=== PATIENT | female | born 1985 | race Caucasian/White ===

== ENCOUNTER 2017-07-27 21:34 | Emergency (ER) | payer OTHER ==
[~2017-07-27] VITALS: Ht 157.5 cm; Wt 104.1 kg
[~2017-07-27 21:34] MED LIST: ZNTT/150 PO
[2017-07-27 21:36] VITALS: TEMP 36.8; Ht 157.5 cm; Wt 104.1 kg
[2017-07-27 22:07] LABS: BASO % 0.1 %; BASO ABS # 0.01 K/uL (0-0.2); EOS % 2.6 %; EOS ABS # 0.32 K/uL (0-0.5); HEMATOCRIT 40.5 % (37-47); HEMOGLOBIN 13.5 g/dL (12.0-16.0); IG# 0.05 K/uL (0.00-0.02); LYMPH % 28.8 %; LYMPH ABS # 3.49 K/uL (1.2-3.4); MEAN CELL VOLUME 88.4 fL (80-100); MEAN CORPUSCULAR HEMOGLOBIN 29.5 pg (25-34); MEAN CORPUSCULAR HGB CONC 33.3 g/dl (32-36); MEAN PLATELET VOLUME 9.7 fL (7.4-10.4); MONO % 4.5 %; MONO ABS # 0.54 K/uL (0.11-0.59); NEUT % 63.6 %; NEUT ABS # 7.69 K/uL (1.4-6.5); PLATELET COUNT 311 K/uL (130-400); RED CELL DISTRIBUTION WIDTH CV 13.7 % (11.5-14.5)
[2017-07-27] MEDS ORDERED: MULT-506 PO (22:10)
[2017-07-27] MEDS ORDERED: PRVHFAIN INH (22:10)
[2017-07-27 22:23] LABS: ALBUMIN 3.6 gm/dl (3.4-5.0); ALT/SGPT 27 U/L (12-78); BLOOD UREA NITROGEN 14 mg/dl (7-18); CALCIUM 8.9 mg/dl (8.5-10.1); CARBON DIOXIDE 24 mmol/L (21-32); CREATININE 0.82 mg/dl (0.60-1.20); GLUCOSE 110 mg/dl (70-99); LIPASE 140 U/L (73-393); POTASSIUM 3.6 mmol/L (3.5-5.1); SODIUM 136 mmol/L (136-145)
[2017-07-27 22:29] LABS: INFLUENZA B ANTIGEN Neg for Influ B (NEG)
[2017-07-27 22:32] LABS: ALKALINE PHOSPHATASE 130 U/L (45-117); AST/SGOT 12 U/L (15-37); TOTAL PROTEIN 7.9 gm/dl (6.4-8.2)
--- NOTE | 2017-07-27 22:44 | DIAGNOSTIC IMAGING REPORT ---
CHEST ONE VIEW PORTABLE CLINICAL HISTORY: 31 years-old Female presenting with chest pain. TECHNIQUE: Portable upright AP view of the chest was obtained. COMPARISON: 12/21/2015. FINDINGS: Cardiomediastinal silhouette normal. Mild bronchial wall thickening may be present. Lungs and pleural spaces otherwise clear. Osseous structures normal. Upper abdomen normal. IMPRESSION: 1. Mild bronchial wall thickening could suggest bronchitis. No focal infiltrate to suggest pneumonia. Electronically signed by: Jethro Stevens M.D. 07/27/2017 10:43 PM Dictated Date/Time: 07/27/2017 10:42 PM
[2017-07-27] MEDS ORDERED: FAMOTIDINE 20MG/5ML IV PUSH IV STA (22:45)
[2017-07-27] MEDS ORDERED: KETOROLAC TROMETHAMINE 30 MG/ML VIAL IV STA (22:45)
--- NOTE | 2017-07-27 23:44 | EMERGENCY ROOM VISIT NOTE ---
History Report prepared by [place]: Serena Kan Under the Supervision of: Dr. Ivy Prescott D.O. First contact with patient: 21:40 Chief Complaint: CARDIAC ASSESSMENT Stated Complaint: PAIN IN ARMS,CHEST,AND BACK Nursing Triage Summary: Pt c/o midsternal chest pain that radiates to her back and down bilateral arms. Started yesterday morning. History of Present Illness The patient is a 31 year old female who presents to the Emergency Room with complaints of waxing and waning chest pain starting 2 days ago. The patient's PCP recommended that she come to the ED. She has a history of ankylosing spondylitis and discs in her neck. Her PCP thinks this pain is most likely due to her spine, but recommended she come in to the ED to rule out anything acute. The chest pain goes down her arms and into her back. She describes the pain as a dull ache with occasional stabbing pains. She has tried Tylenol and ibuprofen to some relief. She has had similar pain in the past, but it usually does not last this long. The pain in her arms is worse than her back pain. She is nauseous. She denies any numbness, tingling, dizziness, lightheadedness, SOB, fever, chills, black stools, blood stools, diarrhea, or urinary symptoms. She has a history of GERD. She denies any chance of . She is not on control. Source of History: patient Onset: 2 days ago Position: chest Quality: ache, stabbing, dull Timing: waxes/wanes Modifying Factors (Relieving): tylenol, ibuprofen Associated Symptoms: + nausea, + back pain, No fevers, No chills, No SOB, No melena, No hematochezia, No diarrhea, No urinary symptoms, No numbness Note: Pt reports arm pain. Review of Systems See HPI for pertinent positives & negatives. A total of 10 systems reviewed and were otherwise negative. Past Medical & Surgical Medical Problems: (1) Acute pericarditis (2) Anxiety disorder, unspecified (3) Preeclampsia Family History Cancer Diabetes mellitus Gallbladder disease Heart attack GRANDFATHER, Onset:40's - 50 Heart disease Hypertension Kidney disease Kidney stones Seizures Social History Smoking Status: Never Smoker Alcohol Use: none Drug Use: none Marital Status: Housing Status: lives with family Occupation Status: unemployed Current/Historical Medications Scheduled Multivitamin (Multivitamin), 1 TAB PO DAILY Scheduled PRN Albuterol (Ventolin Hfa), 2 PUFFS INH UD PRN for SOB/Wheezing Allergies Coded Allergies: Doxycycline (Verified Allergy, Intermediate, Rash, 07/27/17) Amoxicillin (Verified Allergy, Unknown, ANAPHYLAXIS, 10/31/15) Clavulanic Acid (Verified Allergy, Unknown, ANAPHYLAXIS, 10/31/15) Metronidazole (Verified Allergy, Unknown, rash, 10/31/15) Physical Exam Vital Signs Date Time Temp Pulse Resp B/P (MAP) Pulse Ox O2 Delivery O2 Flow Rate FiO2 07/28/17 00:08 83 18 124/76 97 07/27/17 22:54 96 18 106/69 98 Room Air 07/27/17 21:52 89 07/27/17 21:36 36.8 104 18 145/85 97 Room Air Physical Exam GENERAL: alert, well appearing, well nourished, no distress, non-toxic, obese EYE EXAM: normal conjunctiva, PERRL and EOM's grossly intact OROPHARYNX: no exudate, no erythema, lips, buccal mucosa, and tongue normal and mucous membranes are moist NECK: supple, no nuchal rigidity, no adenopathy, non-tender LUNGS: Clear to auscultation. No wheezes, rhonchi, rales. Normal chest wall mechanics HEART: no murmurs, S1 normal and S2 normal, no reproducible chest pain ABDOMEN: abdomen soft, non-tender, normo-active bowel sounds, no masses, no rebound or guarding. BACK: Back is symmetrical on inspection and there is no deformity, no midline tenderness, no CVA tenderness. SKIN: no rashes and no bruising UPPER EXTREMITIES: upper extremities are grossly normal. Full range of motion, equal pulses bilaterally LOWER EXTREMITIES: No pitting edema. Full range of motion, equal pulses bilaterally NEURO EXAM: Normal sensorium, cranial nerves II-XII grossly intact, normal speech, no gross weakness of arms, no gross weakness of legs. Medical Decision & Procedures ER Provider Diagnostic Interpretation: Xray results have been interpreted by the radiologist and by me. CHEST ONE VIEW PORTABLE CLINICAL HISTORY: 31 years-old Female presenting with chest pain. TECHNIQUE: Portable upright AP view of the chest was obtained. COMPARISON: 12/21/2015. FINDINGS: Cardiomediastinal silhouette normal. Mild bronchial wall thickening may be present. Lungs and pleural spaces otherwise clear. Osseous structures normal. Upper abdomen normal. IMPRESSION: 1. Mild bronchial wall thickening could suggest bronchitis. No focal infiltrate to suggest pneumonia. Electronically signed by: Jethro Stevens M.D. 07/27/2017 10:43 PM Dictated Date/Time: 07/27/2017 10:42 PM Laboratory Results 07/27/17 21:55 Red Blood Count 4.58, Mean Corpuscular Volume 88.4, Mean Corpuscular Hemoglobin 29.5, Mean Corpuscular Hemoglobin Concent 33.3, Mean Platelet Volume 9.7, Neutrophils (%) (Auto) 63.6, Lymphocytes (%) (Auto) 28.8, Monocytes (%) (Auto) 4.5, Eosinophils (%) (Auto) 2.6, Basophils (%) (Auto) 0.1, Neutrophils # (Auto) 7.69, Lymphocytes # (Auto) 3.49, Monocytes # (Auto) 0.54, Eosinophils # (Auto) 0.32, Basophils # (Auto) 0.01 07/27/17 21:55 Test 07/27/17 21:55 07/27/17 22:05 White Blood Count 12.10 K/uL (4.8-10.8) Red Blood Count 4.58 M/uL (4.2-5.4) Hemoglobin 13.5 g/dL (12.0-16.0) Hematocrit 40.5 % (37-47) Mean Corpuscular Volume 88.4 fL (80-100) Mean Corpuscular Hemoglobin 29.5 pg (25-34) Mean Corpuscular Hemoglobin Concent 33.3 g/dl (32-36) Platelet Count 311 K/uL (130-400) Mean Platelet Volume 9.7 fL (7.4-10.4) Neutrophils (%) (Auto) 63.6 % Lymphocytes (%) (Auto) 28.8 % Monocytes (%) (Auto) 4.5 % Eosinophils (%) (Auto) 2.6 % Basophils (%) (Auto) 0.1 % Neutrophils # (Auto) 7.69 K/uL (1.4-6.5) Lymphocytes # (Auto) 3.49 K/uL (1.2-3.4) Monocytes # (Auto) 0.54 K/uL (0.11-0.59) Eosinophils # (Auto) 0.32 K/uL (0-0.5) Basophils # (Auto) 0.01 K/uL (0-0.2) RDW Standard Deviation 44.0 fL (36.4-46.3) RDW Coefficient of Variation 13.7 % (11.5-14.5) Immature Granulocyte % (Auto) 0.4 % Immature Granulocyte # (Auto) 0.05 K/uL (0.00-0.02) D-Dimer 280 ug/L FEU (0-500) Anion Gap 9.0 mmol/L (3-11) Est Creatinine Clear Calc Drug Dose 114.6 ml/min Estimated GFR () 112.1 Estimated GFR (Non- 96.7 BUN/Creatinine Ratio 16.5 (10-20) Calcium Level 8.9 mg/dl (8.5-10.1) Magnesium Level 2.0 mg/dl (1.8-2.4) Total Bilirubin 0.2 mg/dl (0.2-1) Aspartate Amino Transf (AST/SGOT) 12 U/L (15-37) Alanine Aminotransferase (ALT/SGPT) 27 U/L (12-78) Alkaline Phosphatase 130 U/L (45-117) Troponin I < 0.015 ng/ml (0-0.045) Total Protein 7.9 gm/dl (6.4-8.2) Albumin 3.6 gm/dl (3.4-5.0) Globulin 4.3 gm/dl (2.5-4.0) Albumin/Globulin Ratio 0.8 (0.9-2) Lipase 140 U/L (73-393) Human Chorionic Gonadotropin, Qual NEG (NEG) Lyme Disease IgG Antibody NEG (NEG) Lyme Disease IgM Antibody NEG (NEG) Influenza Type A Antigen Neg for Influ A (NEG) Influenza Type B Antigen Neg for Influ B (NEG) Laboratory results per my review. Medications Administered Medications (Trade) Dose Ordered Sig/Kristofer Route Start Time Stop Time Status Last Admin Dose Admin Ketorolac Tromethamine (Toradol Inj) 30 mg NOW STAT IV 07/27/17 22:45 07/27/17 22:47 DC 07/27/17 22:52 30 MG ECG Indication: chest pain Rate (beats per minute): 87 Rhythm: sinus rhythm Findings: no acute ischemic change, no ectopy, other (normal axis, normal intervals) Change: EKG: Patient's electrocardiogram per my interpretation. ED Course 2141: The patient was evaluated in room B11B. A complete history and physical exam was performed. 2244: Toradol Inj 30 mg IV. 2336: Upon reevaluation, the patient is feeling better. She declines chest CT. I discussed the findings and the treatment plan with the patient. She verbalizes agreement and understanding. She was discharged home. Medical Decision Differential diagnoses includes but is not limited to acute coronary syndrome, myocardial infarction, pericarditis, pulmonary embolus, aortic dissection, pneumonia, pneumothorax, musculoskeletal, shingles, esophageal. Upon review of EMR, patient with prior cardiac catheterization within last 5 years which was negative for any obstructive coronary artery disease. Patient low risk at baseline given lack of other risk factors. D-dimer negative and no hypoxia or increased work of breathing otherwise suggest occult PE. Patient with no findings or history to suggest lower extremity DVT. No other evidence of occult infection. Labs and imaging otherwise reassuring. Patient offered additional pain medication here and she declined. Patient already following with rheumatology regarding her ankylosing spondylitis. Discussed with her symptoms to watch and return for, continued follow-up as already scheduled with dermatology as well as her GI doctors given her recurrent episodes of GERD, she verbalized understanding was agreeable with plan. Medication Reconcilliation Current Medication List: was personally reviewed by me Blood Pressure Screening Patient's blood pressure: Normal blood pressure Blood pressure disposition: Did not require urgent referral Impression Primary Impression: Chest pain Additional Impressions: Back pain GERD (gastroesophageal reflux disease) Scribe Attestation The scribe's documentation has been prepared under my direction and personally reviewed by me in its entirety. I confirm that the note above accurately reflects all work, treatment, procedures, and medical decision making performed by me. Departure Information Dispostion Home / Self-Care Referrals No Doctor, Assigned (PCP) Patient Instructions [facility] Additional Instructions Please call follow-up with your family doctor regarding your recent increased pain. 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 Please take the stomach medication as it was prescribed. Please avoid acidic food and drink as previously discussed. If you develop any worsening pain, develop vomiting, black or bloody stools, trouble breathing, fevers, numbness or tingling in her arms, swelling in extremity, you have any other new concerns , please return the emergency room. Problem Qualifiers Primary Impression: Chest pain Chest pain type: unspecified Qualified Codes: R07.9 - Chest pain, unspecified Additional Impressions: Back pain Back pain location: thoracic back pain Chronicity: chronic Back pain laterality: midline Qualified Codes: M54.6 - Pain in thoracic spine; G89.29 - Other chronic pain GERD (gastroesophageal reflux disease) Esophagitis presence: esophagitis presence not specified Qualified Codes: K21.9 - Gastro-esophageal reflux disease without esophagitis
[2017-07-28 00:08] VITALS: BP 124/76; PULSE 83; O2SAT 97
== END 2017-07-28 00:02 | disposition home or self-care (01) ==
LOC: C.EDB 21:36
DX: R07.9 Chest pain, unspecified (principal); M54.6 Pain in thoracic spine; G89.29 Other chronic pain; K21.9 Gastro-esophageal reflux disease without esophagitis; F41.9 Anxiety disorder, unspecified; Z83.3 Family history of diabetes mellitus; Z82.49 Family history of ischemic heart disease and other diseases of the circulatory system; Z84.1 Family history of disorders of kidney and ureter; Z82.0 Family history of epilepsy and other diseases of the nervous system; Z88.0 Allergy status to penicillin; Z88.1 Allergy status to other antibiotic agents

== ENCOUNTER 2017-09-10 15:57 | Emergency (ER) | payer OTHER ==
[~2017-09-10] VITALS: Ht 157.5 cm; Wt 96.7 kg
[~2017-09-10 15:57] MED LIST changes: +MULT-506 PO; +PRVHFAIN INH; -ZNTT/150 PO
[2017-09-10 16:05] VITALS: TEMP 36.8; Ht 157.5 cm; Wt 96.7 kg
[2017-09-10] MEDS ORDERED: GI COCKTAIL PO STA (16:40)
[2017-09-10] MEDS ORDERED: FAMOTIDINE 20MG/5ML IV PUSH IV STA (16:40)
[2017-09-10] MEDS ORDERED: ALUMINUM/MAGNESIUM SUSP 30 ML UDC ONE (16:46)
[2017-09-10] MEDS ORDERED: LIDOCAINE HCL 2% VISC SOLN 20 ML UDC ONE (16:46)
[2017-09-10 16:57] VITALS: O2SAT 95
--- NOTE | 2017-09-10 17:00 | EMERGENCY ROOM VISIT NOTE ---
ED Visit Note First contact with patient: 16:28 CHIEF COMPLAINT: Chest pain HISTORY OF PRESENTING ILLNESS: This is a 31-year-old female with past medical history significant for ankylosing spondylitis, asthma, anxiety, and pericarditis, who presents to the emergency department with complaint of chest pain for the past 3 days. Patient describes the pain as pressure and tightness , in the middle of her chest, radiates up her neck and throat, constant, 4/10. She states that the pain feels worse when she lies flat for prolonged periods of time, and that her chest feels tight when she tries to take a deep breath. She denies any shortness of breath. She states nothing has made the pain better. She has tried ibuprofen, Mylanta, and [place], thinking that it was GERD, however this has not relieved her symptoms. She does have a history of pericarditis a few years ago, she states this feels different. She states that she just got over bronchitis a few days ago. She denies any fevers or chills, headaches, neck pain, dizziness or syncope, abdominal pain, back pain, nausea or vomiting, diarrhea, bloody or black stools, urinary symptoms, or rash. She denies any recent long travel or immobilization, leg pain or swelling , oral contraceptive use, or history of blood clots. REVIEW OF SYSTEMS: A complete 10 point review of systems was reviewed with the patient with pertinent positives and negatives as per history of present illness. All else were negative. PAST MEDICAL HISTORY: Reviewed in chart. FAMILY HISTORY: Denies any history of cardiac disease or at a young age. SOCIAL HISTORY: Lives at home with family. Former smoker, quit 4 years ago. Denies recreational drug use. ALLERGIES: Reviewed in chart. PHYSICAL EXAM: CONSTITUTIONAL: Pleasant and cooperative. No acute distress. Well hydrated, well appearing and well nourished. HEENT: Normocephalic, atraumatic. Pupils equal, round and reactive to light, EOMI. TMs normal. Pharynx normal. Moist mucus membranes. NECK: Supple, full active range of motion without discomfort. RESPIRATORY: Clear to auscultation bilaterally with no wheezing, crackles, rhonchi or stridor. Equal expansion bilaterally. CARDIOVASCULAR: Regular rate and rhythm with no murmurs, rubs or gallops. Normal peripheral perfusion. No edema. GASTROINTESTINAL: Soft, nontender, nondistended. No palpable masses or HSM. Bowel sounds present in all quadrants. MUSCULOSKELETAL: Full range of motion of all joints without discomfort. INTEGUMENTARY: No rash or other significant dermatologic conditions noted. NEUROLOGIC: Alert and oriented X 4 with normal affect. Normal strength and sensation in all four extremities. No focal neurologic deficits noted. Normal speech. Normal gait observed. ED COURSE AND MEDICAL DECISION MAKING: CC: Patient presenting with complaint of chest pain/pressure DIFFERENTIAL DIAGNOSIS: Includes, but not limited to acute coronary syndrome, GERD, pulmonary embolism, pneumothorax, pericarditis, myocarditis, anxiety, musculoskeletal pain, costochondritis, pneumonia, among others. INTERPRETATION OF LABS: No leukocytosis, no anemia, no significant electrolyte abnormalities, normal renal function, normal liver enzymes and lipase. Troponin is negative. D-dimer is negative. Urine negative. IMAGING: CHEST 2 VIEWS ROUTINE CLINICAL HISTORY: CHEST PAIN dyspnea COMPARISON STUDY: 07/27/2017 FINDINGS: The bones soft tissues and hemidiaphragms are normal. The cardiomediastinal silhouette is normal. The lungs are clear. The pulmonary vasculature is normal. IMPRESSION: Negative chest. EKG: Shows normal sinus rhythm with sinus arrhythmia, with a rate of 83 bpm, no acute ischemic changes, no significant changes when compared to previous EKG from 07/27/2017 by my interpretation. MEDICATION RECONCILIATION: I attest that I have personally reviewed the patient 's current medication list. INITIAL VITAL SIGNS REVIEW: I reviewed the patient's initial vital signs and interpret them as follows: T: Afebrile; BP: Normotensive; HR: Within normal limits; RR: Within normal limits; Pulse Ox: Within normal limits on room air. Blood pressure screening: The patient was found to have normal blood pressure on screening and does not require follow-up for repeat blood pressure check. SUMMARY: Patient was evaluated at bedside, history and physical exam performed. Patient is alert and oriented, no acute distress, resting, and stretcher. Patient is complaining of constant midsternal chest pressure for the past 3 days has been unrelieved with [id number] medications. Patient does state that the pain radiates up into her throat and jaw, but states this feels different from past symptoms of GERD. Patient denies shortness of breath, is not tachypneic or tachycardic, with normal sats on room air. EKG reviewed at bedside, normal sinus rhythm with no acute ischemic changes. Orders were placed at bedside for labs, urine , IV Pepcid and GI cocktail to treat for potential GERD, chest x-ray to evaluate for cardiopulmonary disease. Patient discussed with Dr. Monroe, who agrees with my assessment and plan. Patient is low risk for PE by Well's Criteria, will perform d-dimer to rule this out. Labs and imaging reviewed as above, unremarkable. Troponin and d-dimer negative after 3 days of constant chest pain. Patient was reassessed after the Pepcid and GI cocktail, she states her symptoms are not at all improved. Given patient's recent history for bronchitis, I suspect her chest pain may be inflammatory or pleuritic in nature. IV Toradol was ordered for pain, however the patient declined this medication. Patient reassessed multiple times throughout ED stay, she states overall that she is feeling somewhat better. She states that she will take ibuprofen when she gets home. Patient was updated on all results and plan for discharge, I encouraged her to follow closely with her primary care provider if her symptoms are not improving. Patient was also given strict return precautions should her symptoms worsen, she verbalized understanding. Patient was discharged home in stable condition and ambulatory. Problem List Medical Problems: (1) Acute pericarditis Status: Chronic (2) Anxiety disorder, unspecified Status: Chronic Current/Historical Medications Scheduled Melatonin (Melatonin), 1 MG PO HS Multivitamin (Multivitamin), 1 TAB PO DAILY [place]-3 Fatty Acids ([place] 3), 1 CAP PO QAM Ranitidine (Zantac), 150 MG PO DAILY Scheduled PRN Albuterol (Ventolin Hfa), 2 PUFFS INH UD PRN for SOB/Wheezing Allergies Coded Allergies: Doxycycline (Verified Allergy, Intermediate, Rash, 09/10/17) Amoxicillin (Verified Allergy, Unknown, ANAPHYLAXIS, 09/10/17) Clavulanic Acid (Verified Allergy, Unknown, ANAPHYLAXIS, 09/10/17) Metronidazole (Verified Allergy, Unknown, rash, 09/10/17) Vital Signs Date Time Temp Pulse Resp B/P (MAP) Pulse Ox O2 Delivery O2 Flow Rate FiO2 09/10/17 19:55 94 18 122/97 98 09/10/17 18:32 133/84 09/10/17 18:30 85 23 98 Room Air 09/10/17 18:02 09/10/17 18:00 93 15 97 Room Air 09/10/17 17:30 88 16 112/79 98 Room Air 09/10/17 17:07 80 09/10/17 16:57 95 Room Air 09/10/17 16:57 73 133/75 95 Room Air 09/10/17 16:57 95 Room Air 09/10/17 16:05 36.8 88 20 132/80 98 Room Air 09/10/17 16:04 99 Room Air Laboratory Results 09/10/17 16:57 Red Blood Count 4.21, Mean Corpuscular Volume 87.2, Mean Corpuscular Hemoglobin 28.5, Mean Corpuscular Hemoglobin Concent 32.7, Mean Platelet Volume 9.8, Neutrophils (%) (Auto) 63.0, Lymphocytes (%) (Auto) 26.7, Monocytes (%) (Auto) 7.0, Eosinophils (%) (Auto) 2.9, Basophils (%) (Auto) 0.1, Neutrophils # (Auto) 6.80, Lymphocytes # (Auto) 2.88, Monocytes # (Auto) 0.75, Eosinophils # (Auto) 0.31, Basophils # (Auto) 0.01 09/10/17 16:57 Test 09/10/17 16:57 09/10/17 17:45 White Blood Count 10.78 K/uL (4.8-10.8) Red Blood Count 4.21 M/uL (4.2-5.4) Hemoglobin 12.0 g/dL (12.0-16.0) Hematocrit 36.7 % (37-47) Mean Corpuscular Volume 87.2 fL (80-100) Mean Corpuscular Hemoglobin 28.5 pg (25-34) Mean Corpuscular Hemoglobin Concent 32.7 g/dl (32-36) Platelet Count 291 K/uL (130-400) Mean Platelet Volume 9.8 fL (7.4-10.4) Neutrophils (%) (Auto) 63.0 % Lymphocytes (%) (Auto) 26.7 % Monocytes (%) (Auto) 7.0 % Eosinophils (%) (Auto) 2.9 % Basophils (%) (Auto) 0.1 % Neutrophils # (Auto) 6.80 K/uL (1.4-6.5) Lymphocytes # (Auto) 2.88 K/uL (1.2-3.4) Monocytes # (Auto) 0.75 K/uL (0.11-0.59) Eosinophils # (Auto) 0.31 K/uL (0-0.5) Basophils # (Auto) 0.01 K/uL (0-0.2) RDW Standard Deviation 44.3 fL (36.4-46.3) RDW Coefficient of Variation 13.9 % (11.5-14.5) Immature Granulocyte % (Auto) 0.3 % Immature Granulocyte # (Auto) 0.03 K/uL (0.00-0.02) D-Dimer 310 ug/L FEU (0-500) Anion Gap 7.0 mmol/L (3-11) Est Creatinine Clear Calc Drug Dose 152.7 ml/min Estimated GFR () 143.6 Estimated GFR (Non- 123.9 BUN/Creatinine Ratio 16.7 (10-20) Calcium Level 8.9 mg/dl (8.5-10.1) Total Bilirubin 0.2 mg/dl (0.2-1) Direct Bilirubin < 0.1 mg/dl (0-0.2) Aspartate Amino Transf (AST/SGOT) 18 U/L (15-37) Alanine Aminotransferase (ALT/SGPT) 26 U/L (12-78) Alkaline Phosphatase 118 U/L (45-117) Troponin I < 0.015 ng/ml (0-0.045) Total Protein 7.0 gm/dl (6.4-8.2) Albumin 3.4 gm/dl (3.4-5.0) Lipase 128 U/L (73-393) Urine Test NEG (NEG) Medications Administered Medications (Trade) Dose Ordered Sig/Kristofer Route Start Time Stop Time Status Last Admin Dose Admin Famotidine (Pepcid 20mg Iv Push) 20 mg ONE STAT IV 09/10/17 16:40 09/10/17 16:44 DC 09/10/17 17:24 20 MG Al Hydroxide/Mg Hydroxide (Maalox Susp) 30 ml STK-MED ONCE .ROUTE 09/10/17 16:46 09/10/17 16:47 DC 09/10/17 17:23 30 ML Lidocaine HCl (Viscous Lidocaine 2% Soln) 20 ml STK-MED ONCE .ROUTE 09/10/17 16:46 09/10/17 16:47 DC 09/10/17 17:23 20 ML Departure Information Impression Primary Impression: Chest pain Dispostion Home / Self-Care Condition GOOD Referrals Stephon Ly M.D. (PCP) Patient Instructions ED Chest Pain Pleurisy, My [facility] Additional Instructions You have been treated in the Emergency Department your chest pain. Laboratory results and imaging studies have ruled out any emergent causes for your symptoms which would warrant admission or surgery. For pain control, you can use the following [id number] medicines (if >12 yo): - Regular strength (325mg/tab) Tylenol (acetaminophen) 2 tabs every 4-6 hours as needed. Do not exceed 10 tablets in a 24 hour period. Avoid taking more than 3000 mg of Tylenol per day. This includes any other sources of acetaminophen you may take on a regular basis. - Regular strength (200 mg/tab) Advil (ibuprofen) 3 tabs every 6-8 hours as needed. Do not exceed a dose of 2400 mg per day. You may also use moist heat or heating pad to your chest for comfort. Drink plenty of fluids to stay well hydrated. Please follow-up with your Primary Care Provider in the next few days to be re- evaluated. Return to the emergency department for severe worsening chest pain, trouble breathing or inability to catch your breath, persistent nausea/vomiting, vomiting blood, fevers > 101.5, severe dizziness or passing out, or any other concerns. Work Instructions Return To Work: 2 days Problem Qualifiers Primary Impression: Chest pain Chest pain type: unspecified Qualified Codes: R07.9 - Chest pain, unspecified
[2017-09-10 17:22] LABS: BASO % 0.1 %; BASO ABS # 0.01 K/uL (0-0.2); EOS % 2.9 %; EOS ABS # 0.31 K/uL (0-0.5); HEMATOCRIT 36.7 % (37-47); IG# 0.03 K/uL (0.00-0.02); LYMPH % 26.7 %; LYMPH ABS # 2.88 K/uL (1.2-3.4); MEAN CELL VOLUME 87.2 fL (80-100); MEAN CORPUSCULAR HEMOGLOBIN 28.5 pg (25-34); MEAN CORPUSCULAR HGB CONC 32.7 g/dl (32-36); MEAN PLATELET VOLUME 9.8 fL (7.4-10.4); MONO ABS # 0.75 K/uL (0.11-0.59); PLATELET COUNT 291 K/uL (130-400); RED CELL DISTRIBUTION WIDTH CV 13.9 % (11.5-14.5); RED CELL DISTRIBUTION WIDTH SD 44.3 fL (36.4-46.3); WHITE BLOOD COUNT 10.78 K/uL (4.8-10.8)
--- NOTE | 2017-09-10 17:50 | DIAGNOSTIC IMAGING REPORT ---
CHEST 2 VIEWS ROUTINE CLINICAL HISTORY: CHEST PAIN dyspnea COMPARISON STUDY: 07/27/2017 FINDINGS: The bones soft tissues and hemidiaphragms are normal. The cardiomediastinal silhouette is normal. The lungs are clear. The pulmonary vasculature is normal. IMPRESSION: Negative chest. The above report was generated using voice recognition software. It may contain grammatical, syntax or spelling errors. Electronically signed by: Raffaele Martinez M.D. 09/10/2017 5:49 PM Dictated Date/Time: 09/10/2017 5:49 PM
[2017-09-10] MEDS ORDERED: OMEG100046 PO (17:58)
[2017-09-10] MEDS ORDERED: MELA1TAB4 PO (17:58)
[2017-09-10] MEDS ORDERED: RANI150T85 PO (17:58)
[2017-09-10 17:59] LABS: ALBUMIN 3.4 gm/dl (3.4-5.0); ALT/SGPT 26 U/L (12-78); BLOOD UREA NITROGEN 10 mg/dl (7-18); CALCIUM 8.9 mg/dl (8.5-10.1); CARBON DIOXIDE 24 mmol/L (21-32); CREATININE 0.59 mg/dl (0.60-1.20); GLUCOSE 77 mg/dl (70-99); LIPASE 128 U/L (73-393); SODIUM 137 mmol/L (136-145)
[2017-09-10 18:04] LABS: ALKALINE PHOSPHATASE 118 U/L (45-117); AST/SGOT 18 U/L (15-37)
[2017-09-10] MEDS ORDERED: KETOROLAC TROMETHAMINE 30 MG/ML VIAL IV STA (19:05)
[2017-09-10 19:55] VITALS: BP 122/97; PULSE 94; O2SAT 98
== END 2017-09-10 19:50 | disposition home or self-care (01) ==
LOC: C.EDB 15:58
DX: R07.9 Chest pain, unspecified (principal); Z87.891 Personal history of nicotine dependence; Z86.79 Personal history of other diseases of the circulatory system; Z86.59 Personal history of other mental and behavioral disorders; Z88.1 Allergy status to other antibiotic agents

== ENCOUNTER 2017-09-12 18:27 | Emergency (ER) | payer OTHER ==
[~2017-09-12] VITALS: Ht 157.5 cm; Wt 105.0 kg
[~2017-09-12 18:27] MED LIST changes: +MELA1TAB4 PO; +OMEG100046 PO; +RANI150T85 PO
[2017-09-12 18:33] VITALS: TEMP 36.9; Ht 157.5 cm; Wt 105.0 kg
--- NOTE | 2017-09-12 20:22 | EMERGENCY ROOM VISIT NOTE ---
History Report prepared by [place]: Reginald Carballo Under the Supervision of: Dr. Adam Bob D.O. First contact with patient: 20:11 Chief Complaint: CARDIAC ASSESSMENT Stated Complaint: CHEST DISCOMFORT Nursing Triage Summary: patient to ED for ongoing chest pain, states "I was seen here two days ago for it, its been going on five days and the pain is getting worse. They didn't find anything last time." History of Present Illness The patient is a 31 year old female who presents to the Emergency Room with complaints of persistent chest pain for three days. She currently rates her pain a 5/10 in severity. She was seen in the ED two days ago for similar symptoms. She was given a GI cocktail at that time, though no relief. She notes shortness of breath with exertion. Her LNMP was three weeks ago. She denies any changes to her symptoms when lying flat. She notes the chest pain is radiating to her back. She denies any urinary symptoms. She denies any leg swelling or leg pain. She denies any abdominal pain. She has a history of cholecystectomy. Source of History: patient Onset: three days Position: chest Symptom Intensity: 5/10 Timing: other (persistent) Associated Symptoms: + SOB, + back pain, No abdominal pain, No urinary symptoms Note: She denies any leg swelling or leg pain. Review of Systems See HPI for pertinent positives & negatives. A total of 10 systems reviewed and were otherwise negative. Past Medical & Surgical Medical Problems: (1) Acute pericarditis (2) Anxiety disorder, unspecified (3) Preeclampsia Family History Cancer Diabetes mellitus Gallbladder disease Heart attack GRANDFATHER, Onset:40's - 50 Heart disease Hypertension Kidney disease Kidney stones Seizures Social History Smoking Status: Never Smoker Alcohol Use: none Drug Use: none Marital Status: Housing Status: lives with family Occupation Status: unemployed Current/Historical Medications Scheduled Melatonin (Melatonin), 1 MG PO HS Multivitamin (Multivitamin), 1 TAB PO DAILY Douglas-3 Fatty Acids (Douglas 3), 1 CAP PO QAM Ranitidine (Zantac), 150 MG PO DAILY Scheduled PRN Albuterol (Ventolin Hfa), 2 PUFFS INH UD PRN for SOB/Wheezing Allergies Coded Allergies: Doxycycline (Verified Allergy, Intermediate, Rash, 09/12/17) Amoxicillin (Verified Allergy, Unknown, ANAPHYLAXIS, 09/12/17) Clavulanic Acid (Verified Allergy, Unknown, ANAPHYLAXIS, 09/12/17) Metronidazole (Verified Allergy, Unknown, rash, 09/12/17) Physical Exam Vital Signs Date Time Temp Pulse Resp B/P (MAP) Pulse Ox O2 Delivery O2 Flow Rate FiO2 09/12/17 21:55 84 20 124/80 99 09/12/17 21:30 88 09/12/17 20:54 93 20 130/75 98 Room Air 09/12/17 20:22 Room Air 09/12/17 18:33 36.9 88 18 154/99 98 Room Air 09/12/17 18:32 98 Room Air Physical Exam GENERAL: Patient is awake, alert, and in no acute distress. Patient is resting comfortably and showing no signs of anxiety EYES: The conjunctivae are clear. The pupils are round and reactive. EARS, NOSE, MOUTH AND THROAT: The nose is without any evidence of any deformity. Mucous membranes are moist tongue is midline NECK: The neck is nontender and supple. RESPIRATORY: Normal respiratory effort is noted there is no evidence of wheezing rhonchi or rales CARDIOVASCULAR: Regular rate and rhythm noted there no murmurs rubs or gallops normal S1 normal S2 GASTROINTESTINAL: The abdomen is soft. Bowel sounds are present in all quadrants. Abdomen is nontender MUSCULOSKELETAL/EXTREMITIES: There is no evidence of gross deformity full range of motion is noted in the hips and shoulders SKIN: There is no obvious evidence of any rash. There are no petechiae, pallor or cyanosis noted. NEUROLOGIC: Patient is awake alert and oriented x3. Medical Decision & Procedures ER Provider Diagnostic Interpretation: Radiology results as stated below per my review and radiologist interpretation: CHEST ONE VIEW PORTABLE CLINICAL HISTORY: 31 years-old Female presenting with EVALUATE RESPIRATORY DISTRESS.DYSPNEA. TECHNIQUE: Portable upright AP view of the chest was obtained. COMPARISON: 09/10/2017. FINDINGS: Cardiomediastinal silhouette normal. Low lung volumes with hypoventilatory changes. No focal opacity. No large effusion or pneumothorax. Osseous structures normal. Upper abdomen normal. IMPRESSION: 1. Low lung volumes with hypoventilatory changes. Electronically signed by: Jethro Stevens M.D. 09/12/2017 8:41 PM Dictated Date/Time: 09/12/2017 8:40 PM Laboratory Results 09/12/17 20:19 Red Blood Count 4.15, Mean Corpuscular Volume 86.7, Mean Corpuscular Hemoglobin 28.9, Mean Corpuscular Hemoglobin Concent 33.3, Mean Platelet Volume 9.5, Neutrophils (%) (Auto) 62.5, Lymphocytes (%) (Auto) 28.1, Monocytes (%) (Auto) 6.4, Eosinophils (%) (Auto) 2.6, Basophils (%) (Auto) 0.1, Neutrophils # (Auto) 6.57, Lymphocytes # (Auto) 2.95, Monocytes # (Auto) 0.67, Eosinophils # (Auto) 0.27, Basophils # (Auto) 0.01 09/12/17 20:19 Test 09/12/17 20:19 White Blood Count 10.50 K/uL (4.8-10.8) Red Blood Count 4.15 M/uL (4.2-5.4) Hemoglobin 12.0 g/dL (12.0-16.0) Hematocrit 36.0 % (37-47) Mean Corpuscular Volume 86.7 fL (80-100) Mean Corpuscular Hemoglobin 28.9 pg (25-34) Mean Corpuscular Hemoglobin Concent 33.3 g/dl (32-36) Platelet Count 278 K/uL (130-400) Mean Platelet Volume 9.5 fL (7.4-10.4) Neutrophils (%) (Auto) 62.5 % Lymphocytes (%) (Auto) 28.1 % Monocytes (%) (Auto) 6.4 % Eosinophils (%) (Auto) 2.6 % Basophils (%) (Auto) 0.1 % Neutrophils # (Auto) 6.57 K/uL (1.4-6.5) Lymphocytes # (Auto) 2.95 K/uL (1.2-3.4) Monocytes # (Auto) 0.67 K/uL (0.11-0.59) Eosinophils # (Auto) 0.27 K/uL (0-0.5) Basophils # (Auto) 0.01 K/uL (0-0.2) RDW Standard Deviation 43.8 fL (36.4-46.3) RDW Coefficient of Variation 13.8 % (11.5-14.5) Immature Granulocyte % (Auto) 0.3 % Immature Granulocyte # (Auto) 0.03 K/uL (0.00-0.02) Prothrombin Time 9.0 SECONDS (9.0-12.0) Prothromb Time International Ratio 0.9 (0.9-1.1) Activated Partial Thromboplast Time 27.5 SECONDS (21.0-31.0) Partial Thromboplastin Ratio 1.1 Anion Gap 6.0 mmol/L (3-11) Est Creatinine Clear Calc Drug Dose 138.9 ml/min Estimated GFR () 137.0 Estimated GFR (Non- 118.2 BUN/Creatinine Ratio 14.5 (10-20) Calcium Level 8.3 mg/dl (8.5-10.1) Total Bilirubin 0.2 mg/dl (0.2-1) Aspartate Amino Transf (AST/SGOT) 20 U/L (15-37) Alanine Aminotransferase (ALT/SGPT) 27 U/L (12-78) Alkaline Phosphatase 119 U/L (45-117) Troponin I < 0.015 ng/ml (0-0.045) Total Protein 7.4 gm/dl (6.4-8.2) Albumin 3.2 gm/dl (3.4-5.0) Globulin 4.2 gm/dl (2.5-4.0) Albumin/Globulin Ratio 0.8 (0.9-2) Human Chorionic Gonadotropin, Qual NEG (NEG) Laboratory results per my review. ECG Per My Interpretation Indication: chest pain Rate (beats per minute): 79 Rhythm: normal sinus Findings: no acute ischemic change, no ectopy (no PVC), other (LVH noted by voltage criteria) Change: no significant change (when compared to 09/12/2017) ED Course 2017: The patient was evaluated in room B6. A complete history and physical examination were performed. 215: I reassessed the patient at this time. I discussed the results and treatment plan with the patient. I answered all pertaining questions that she had. She expressed understanding and verbalized agreement. The patient will be discharged home. Medical Decision Prior records/ancillary studies reviewed. Triage Nursing notes reviewed. The patient's history was concerning for chest pain. Differential diagnosis: Etiologies such as cardiac ischemia, aortic dissection, pulmonary embolism, pneumonia, pneumothorax, musculoskeletal, infections, pericarditis, myocarditis , esophageal rupture, gastrointestinal, as well as others were entertained. The patient is a 31-year-old female who presented to the emergency department for an evaluation of chest discomfort. The patient has had ongoing chest discomfort for the last few hours. She has been seen in our facility for similar complaints multiple times. Her workup has been noncontributory. She called her primary care physician today to schedule a follow-up appointment and was sent back to the emergency department for an evaluation. I discussed the patient's laboratory and radiographic studies with her. I also discussed the limitations of the emergency department workup for chest pain with her. She was encouraged to rest and avoid any strenuous activity. I also encouraged her to continue all medications as prescribed and follow-up with her family doctor tomorrow. She was also encouraged to return to the emergency department immediately if symptoms change worsen or the need arises. Medication Reconcilliation Current Medication List: was personally reviewed by me Blood Pressure Screening Patient's blood pressure: Normal blood pressure Impression Primary Impression: Right-sided chest pain Scribe Attestation The scribe's documentation has been prepared under my direction and personally reviewed by me in its entirety. I confirm that the note above accurately reflects all work, treatment, procedures, and medical decision making performed by me. Departure Information Dispostion Home / Self-Care Referrals Stephon Ly M.D. (PCP) Forms IMPORTANT VISIT INFORMATION, Work Instructions Patient Instructions ED Chest Pain Atypical Unkn Cause, My [facility] Additional Instructions Continue all medications as prescribed. Avoid any strenuous activities. Call your family doctor to schedule a follow-up appointment. Return to the emergency department immediately if symptoms change worsen or the need arises.
[2017-09-12 20:36] LABS: BASO % 0.1 %; BASO ABS # 0.01 K/uL (0-0.2); EOS % 2.6 %; EOS ABS # 0.27 K/uL (0-0.5); IG# 0.03 K/uL (0.00-0.02); LYMPH % 28.1 %; LYMPH ABS # 2.95 K/uL (1.2-3.4); MEAN CELL VOLUME 86.7 fL (80-100); MEAN CORPUSCULAR HEMOGLOBIN 28.9 pg (25-34); MEAN CORPUSCULAR HGB CONC 33.3 g/dl (32-36); MEAN PLATELET VOLUME 9.5 fL (7.4-10.4); MONO % 6.4 %; MONO ABS # 0.67 K/uL (0.11-0.59); NEUT % 62.5 %; NEUT ABS # 6.57 K/uL (1.4-6.5); PLATELET COUNT 278 K/uL (130-400); RED CELL DISTRIBUTION WIDTH CV 13.8 % (11.5-14.5); RED CELL DISTRIBUTION WIDTH SD 43.8 fL (36.4-46.3)
[2017-09-12 20:42] LABS: INR 0.9 (0.9-1.1); PTT PATIENT 27.5 SECONDS (21.0-31.0)
--- NOTE | 2017-09-12 20:43 | DIAGNOSTIC IMAGING REPORT ---
CHEST ONE VIEW PORTABLE CLINICAL HISTORY: 31 years-old Female presenting with EVALUATE RESPIRATORY DISTRESS.DYSPNEA. TECHNIQUE: Portable upright AP view of the chest was obtained. COMPARISON: 09/10/2017. FINDINGS: Cardiomediastinal silhouette normal. Low lung volumes with hypoventilatory changes. No focal opacity. No large effusion or pneumothorax. Osseous structures normal. Upper abdomen normal. IMPRESSION: 1. Low lung volumes with hypoventilatory changes. Electronically signed by: Jethro Stevens M.D. 09/12/2017 8:41 PM Dictated Date/Time: 09/12/2017 8:40 PM
[2017-09-12 20:52] LABS: ALBUMIN 3.2 gm/dl (3.4-5.0); ALT/SGPT 27 U/L (12-78); BLOOD UREA NITROGEN 10 mg/dl (7-18); CALCIUM 8.3 mg/dl (8.5-10.1); CARBON DIOXIDE 23 mmol/L (21-32); CREATININE 0.68 mg/dl (0.60-1.20); GLUCOSE 101 mg/dl (70-99); POTASSIUM 3.9 mmol/L (3.5-5.1); SODIUM 137 mmol/L (136-145)
[2017-09-12 20:56] LABS: ALKALINE PHOSPHATASE 119 U/L (45-117); AST/SGOT 20 U/L (15-37); TOTAL PROTEIN 7.4 gm/dl (6.4-8.2)
[2017-09-12 21:55] VITALS: BP 124/80; PULSE 84; O2SAT 99
== END 2017-09-12 21:56 | disposition home or self-care (01) ==
LOC: C.EDB 18:28
DX: R07.9 Chest pain, unspecified (principal); R06.02 Shortness of breath; Z87.59 Personal history of other complications of pregnancy, childbirth and the puerperium; Z83.3 Family history of diabetes mellitus; Z82.49 Family history of ischemic heart disease and other diseases of the circulatory system; Z84.1 Family history of disorders of kidney and ureter; Z82.0 Family history of epilepsy and other diseases of the nervous system

== ENCOUNTER 2021-07-04 12:53 | Observation (INO) ==
--- NOTE | 2021-07-04 15:38 | Emergency Department Note ---
History of Present Illness General Chief complaint: Visual Disturbance Stated complaint: HERE YESTERDAY, VISION GETTING WORSE Time Seen by Provider: 07/04/21 15:24 History of Present Illness This is a 35-year-old female that presents to the emergency department via private vehicle with complaints of "vision getting worse". The patient states that she was diagnosed with COVID last Saturday, 8 days ago. Her symptoms of COVID 19 began 12 days ago. She states that since that time she has been feeling unwell. 2 days ago she began with diffuse weakness that she notes feels as though it is more in her legs. It is bilateral. No unilateral component. She states that she feels weak to the point where she has trouble ambulating. This seems to be worsening. She also notes that over the past few days she has been seeing spots in her vision. This is diffuse and in both eyes. No unilateral component. She also notes decreased food and liquid intake. The patient also notes that she was recently on steroids and believes she may have developed some reflux from this noting her history of GERD. She notes ongoing chest pain. She stopped the steroids 2 days ago. She denies any recent fevers. She also notes some head pressure which has been ongoing. No known trauma or injury. No vomiting. She does note some mild nausea. When describing her vision with the spots she describes it as "looks surreal". Patient notes that she was seen here last night for similar symptoms but her symptoms have now worsened. She notes a history of tachycardia as well as GERD. She has a history of cholecystectomy. She notes she cannot have CT contrast dye even with premedication noting her allergy. She describes the weakness and vision changes as constant. She also notes some chest pain which has been ongoing and constant over the past few days which she attributes to her GERD. Home Medications Medication Instructions Recorded Confirmed Type melatonin 1 mg tablet 1 mg PO HS 03/27/18 07/04/21 History multivitamin 1 tab PO QAM 03/27/18 07/04/21 History cholecalciferol (vitamin D3) 50 2,000 unit PO QAM 04/19/19 07/04/21 History mcg (2,000 unit) capsule (Vitamin D3) fluticasone propionate 50 1 sprays INTNAS DAILY 14 Days #9.9 04/28/19 07/04/21 Rx mcg/actuation nasal ml spray,suspension (Allergy Relief (fluticasone)) magnesium oxide 250 mg PO HS 05/19/19 07/04/21 History loratadine 10 mg tablet (Claritin) 10 mg PO DAILY 03/21/20 07/04/21 History meclizine 25 mg tablet 25 mg PO TID PRN #10 tab 12/05/20 07/04/21 Rx famotidine 20 mg tablet (Pepcid) 20 mg PO DAILY 06/24/21 07/04/21 History benzonatate 100 mg capsule 100 mg PO TID PRN #30 cap 07/04/21 07/04/21 Rx dexamethasone 6 mg tablet 12 mg PO DAILY 07/04/21 07/04/21 History pantoprazole 40 mg tablet,delayed 40 mg PO DAILY 07/04/21 07/04/21 History release rizatriptan 5 mg tablet 5 mg PO UD PRN 07/04/21 07/04/21 History Allergies Allergy/AdvReac Type Severity Reaction Status Date / Time amoxicillin Allergy Severe ANAPHYLAXIS Verified 07/04/21 01:04 clavulanic acid Allergy Severe ANAPHYLAXIS Verified 07/04/21 01:04 Iodinated Contrast Media Allergy Severe Hives, Verified 07/04/21 22:45 tongue swelling doxycycline Allergy Intermediate Rash Verified 07/04/21 01:04 sulfamethoxazole Allergy Intermediate tongue Verified 07/04/21 01:04 [From Bactrim] swelling trimethoprim [From Bactrim] Allergy Intermediate tongue Verified 07/04/21 01:04 swelling metronidazole Allergy Mild rash Verified 07/04/21 01:04 casein Allergy Unknown per Verified 07/04/21 01:04 allergy testing coffee (Coffea arabica) Allergy Unknown per Verified 07/04/21 01:04 allergy testing Penicillins Allergy Unknown per Verified 06/24/21 23:49 allergy testing egg Allergy Hives Verified 07/05/21 12:33 tuna oil Allergy Hives Verified 07/05/21 13:54 Past Med/Surg History Medical History Abnormal EEG Ankylosing spondylitis Anxiety and depression Degenerative disc disease DVT (deep venous thrombosis) Eustachian tube dysfunction GERD (gastroesophageal reflux disease) Heart palpitations High cholesterol History of bradycardia History of bulimia History of pre-eclampsia Insomnia Iron deficiency anemia Migraine Morbid obesity with BMI of 40.0-44.9, adult Seasonal allergies Thoracic disc disease Vitamin B12 deficiency Vitamin D deficiency Surgical History History of cardiac cath 06/2015 @ [facility] [place]--d/t chest pain, normal no stents History of cholecystectomy History of esophagogastroduodenoscopy (EGD) History of wisdom tooth extraction Family History Father Hypertension Mother Diabetes Grandfather (Maternal) Diabetes Coronary heart disease Myocardial infarction Congestive heart failure Colorectal cancer Grandfather (Paternal) Diabetes Coronary heart disease Myocardial infarction, Onset Age: 50 Grandmother (Paternal) Pulmonary emphysema Sick sinus syndrome Diabetes Pacemaker Grandmother (Maternal) Family history of diabetes mellitus Aunt Pulmonary emphysema Family/Other Myocardial infarction, Onset Age: 37 Coronary heart disease Uncle Stroke Other Asthma Lymphoma No family history of adverse response to anesthesia Denies family history of Ovarian cancer Prostate cancer Breast cancer Social History Smoking Status: Never smoker Tobacco Type: Cigarettes Second Hand Exposure: No; Hx Alcohol Use: No Hx Substance Use: No Preferred Language: Setswana Communication Ability: Effective Visual Impairment: No Limitations Hearing Ability: Normal Wood 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: No Beliefs That Will Affect Care: None marital status: Current Living Situation: Family Current Living Situation Comment: Lives with and daughter current occupational status: unemployed Other Information That Helps Us Care for You: No Feels Safe at Home: Yes Safety Concerns: Feels Safe At This Time Childhood Exposure to Second-Hand Smoke: Yes caffeine: No during the past year weight has: remained stable Dental Care, Regularly: Yes Physical Activity Frequency: 5-6 Times per Week Seatbelt Use: never Sunscreen Use: Yes Assistive Devices: None Review of Systems A total of 10 systems reviewed and were otherwise negative Physical Exam Vital Signs Vital Signs - 24 hr 07/04/21 16:35 07/04/21 16:38 07/04/21 20:00 Pulse Rate 68 Pulse Rate [Right Finger] 68 65 Pulse Rate from SpO2 Sensor Pulse Rhythm Regular Pulse Rhythm [Right Finger] Regular Regular Pulse Strength [Right Finger] Normal Normal Respiratory Rate 20 20 20 Respiratory Effort / Characteristics Non-Labored Non-Labored Respiratory Depth Normal Normal Blood Pressure Blood Pressure [Right Arm] 120/84 129/60 Blood Pressure Mean Blood Pressure Mean [Right Arm] 96 83 Blood Pressure Position [Right Arm] Lying Lying Pulse Oximetry 95 98 95 Oxygen Delivery Method Room Air Room Air Room Air 07/04/21 20:18 07/04/21 20:30 07/04/21 21:00 Pulse Rate 72 74 75 Pulse Rate [Right Finger] Pulse Rate from SpO2 Sensor 72 73 75 Pulse Rhythm Pulse Rhythm [Right Finger] Pulse Strength [Right Finger] Respiratory Rate 12 16 14 Respiratory Effort / Characteristics Respiratory Depth Blood Pressure 135/103 H 160/108 H Blood Pressure [Right Arm] Blood Pressure Mean 113 125 Blood Pressure Mean [Right Arm] Blood Pressure Position [Right Arm] Pulse Oximetry 98 98 98 Oxygen Delivery Method 07/04/21 21:30 07/04/21 21:31 07/04/21 21:50 Pulse Rate 81 91 H 93 H Pulse Rate [Right Finger] Pulse Rate from SpO2 Sensor 84 91 H 89 Pulse Rhythm Pulse Rhythm [Right Finger] Pulse Strength [Right Finger] Respiratory Rate 18 19 15 Respiratory Effort / Characteristics Respiratory Depth Blood Pressure 170/117 H Blood Pressure [Right Arm] Blood Pressure Mean 167 134 Blood Pressure Mean [Right Arm] Blood Pressure Position [Right Arm] Pulse Oximetry 99 99 97 Oxygen Delivery Method 07/04/21 21:58 07/04/21 22:00 Pulse Rate 73 81 Pulse Rate [Right Finger] Pulse Rate from SpO2 Sensor 75 81 Pulse Rhythm Pulse Rhythm [Right Finger] Pulse Strength [Right Finger] Respiratory Rate 16 17 Respiratory Effort / Characteristics Respiratory Depth Blood Pressure 164/118 H 187/135 H Blood Pressure [Right Arm] Blood Pressure Mean 133 152 Blood Pressure Mean [Right Arm] Blood Pressure Position [Right Arm] Pulse Oximetry 97 100 Oxygen Delivery Method VITAL SIGNS - Vital signs and nursing notes were reviewed. Stable and afebrile. GENERAL -35-year-old female appearing her stated age who is in no acute distress. Communicates well with provider and answers questions appropriately. SKIN - Without rashes. No meningeal or petechial rash. HEAD - NC/AT. EYES - PERRL with EOMI bilaterally. Sclera anicteric. EARS - No deformities of external structures noted on gross examination bilaterally. External auditory canals without discharge or otorrhea. Tympanic membranes pearly beltran without retraction or bulging. No fluid or purulent material visualized behind the TM. Handle of malleus, umbo, cone of light, pars tensa/flaccid all easily visualized. NOSE - Midline and without cyanosis. No epistaxis or purulent drainage noted. Septum midline without deviation or septal hematoma noted. MOUTH/OROPHARYNX - Without perioral cyanosis. Buccal mucosa pink and moist and without leukoplakia. Tongue midline with equal elevation of palate bilaterally. No tonsillar hypertrophy, erythema, or exudates noted. Good dentition noted. NECK - Neck with FROM. No nuchal rigidity. LUNGS - Chest wall symmetric without accessory muscle use, intercostals retractions, or central cyanosis. Normal vesicular breath sounds CTA B/L. No wheezes, rales, or rhonchi appreciated. CARDIAC - RRR with S1/S2. No murmur, rubs, or gallops appreciated. ABDOMEN - Abdominal contour normal without pulsations or visible masses. No tenderness, palpable masses, hepatosplenomegaly, or ascites noted. EXTREMITIES - No clubbing or peripheral cyanosis. No pretibial edema present.+5/5 strength noted in UE/LE bilaterally. Patient is able to ambulate independently. NEUROLOGIC - Cranial nerves II through XII grossly intact. PSYCH - A&Ox3 and cooperates fully with examiner. Pt is very pleasant and inte racts well with examiner. Course Administered Medications Enoxaparin Sodium (Enoxaparin Inj 40 Mg/0.4 Ml Syr) 40 mg SQ QAM ANNA Stop: 08/04/21 08:59 Last Admin: 07/05/21 07:57 Dose: 40 mg Documented by: [id number] Famotidine (Famotidine 20 Mg Tab) 20 mg PO DAILY ANNA Stop: 08/04/21 08:59 Last Admin: 07/05/21 07:59 Dose: 20 mg Documented by: [id number] Fluticasone Propionate (Fluticasone Propionate Na Spr 16 Gm Btl) 1 sprays NA DAILY ANNA Stop: 08/04/21 08:59 Last Admin: 07/05/21 08:01 Dose: Not Given Documented by: [id number] Loratadine (Loratadine 10 Mg Tab) 10 mg PO DAILY ANNA Stop: 08/04/21 08:59 Last Admin: 07/05/21 08:00 Dose: Not Given Documented by: [id number] Magnesium Oxide (Magnesium Oxide 400 Mg Tab) 400 mg PO HS ANNA Stop: 08/03/21 22:59 Last Admin: 07/04/21 23:14 Dose: 400 mg Documented by: [id number] Multivitamins (Multivitamin Tab) 1 tab PO QAM ANNA Stop: 08/04/21 08:59 Last Admin: 07/05/21 08:00 Dose: 1 tab Documented by: [id number] Pantoprazole Sodium (Pantoprazole 40 Mg Tab) 40 mg PO DAILY ANNA Stop: 08/04/21 08:59 Last Admin: 07/05/21 08:00 Dose: Not Given Documented by: [id number] Discontinued Medications Amlodipine Besylate (Amlodipine Besylate 5 Mg Tab) 2.5 mg PO NOW ONE Stop: 07/04/21 22:46 Last Admin: 07/04/21 23:14 Dose: 2.5 mg Documented by: [id number] Sodium Chloride (Nss 1000ml) 1,000 mls @ 125 mls/hr IV .Q8H ANNA Stop: 08/03/21 16:44 Last Infusion: 07/04/21 23:22 Dose: 0 mls/hr Documented by: [id number] Admin: 07/04/21 17:47 Dose: 125 mls/hr Documented by: [id number] Lorazepam (Ativan) 0.5 mg in 1 mls @ 1 mls/min IV NOW STA Stop: 07/04/21 22:23 Last Admin: 07/04/21 23:21 Dose: Not Given Documented by: [id number] Lisinopril (Lisinopril 5 Mg Tab) 5 mg PO NOW ONE Stop: 07/04/21 22:22 Last Admin: 07/04/21 23:21 Dose: Not Given Documented by: [id number] Non-Formulary Medication (Magnesium Oxide) 250 mg PO [facility] Stop: 08/03/21 22:35 Last Admin: 07/04/21 23:22 Dose: Not Given Documented by: [id number] Potassium Chloride (Potassium Chloride Crtab 20 Meq Tabcr) 40 meq PO NOW STA Stop: 07/05/21 02:34 Last Admin: 07/05/21 02:48 Dose: 40 meq Documented by: [id number] Medical Decision Making Laboratory Data Result diagrams: 07/05/21 05:16 07/05/21 05:16 Lab Results 07/04/21 07/04/21 07/04/21 Range/Units 16:27 16:27 16:27 WBC 14.69 H (4.8-10.8) K/uL RBC 4.34 (4.2-5.4) M/uL Hgb 12.5 (12.0-16.0) g/dL Hct 38.9 (37-47) % MCV 89.6 (80-100) fL MCH 28.8 (25-34) pg MCHC 32.1 (32-36) g/dL RDW Std Deviation 50.4 H (36.4-46.3) fL RDW Coeff of Yash 15.4 H (11.5-14.5) % Plt Count 310 (130-400) K/uL MPV 9.3 (7.4-10.4) fL Immature Gran % (Auto) 1.5 % Neut % (Auto) 65.1 % Lymph % (Auto) 25.3 % Hayes % (Auto) 7.8 % Eos % (Auto) 0.2 % Baso % (Auto) 0.1 % Neut # (Auto) 9.57 H (1.4-6.5) K/uL Lymph # (Auto) 3.71 H (1.2-3.4) K/uL Hayes # (Auto) 1.14 H (0.11-0.59) K/uL Eos # (Auto) 0.03 (0-0.5) K/uL Baso # (Auto) 0.02 (0-0.2) K/uL Immature Gran # (Auto) 0.22 H (0.00-0.02) K/uL PT 9.7 (9.0-12.0) Seconds INR 1.0 (0.9-1.1) APTT 24.9 (21.0-31.0) Seconds PTT Ratio 0.9 Sodium (136-145) mmol/L Potassium (3.5-5.1) mmol/L Chloride (98-107) mmol/L Carbon Dioxide (21-32) mmol/L Anion Gap (3-11) BUN (6-23) mg/dl Creatinine (0.6-1.2) mg/dl Est Cr Clr Drug Dosing ml/min Est GFR ( Amer) ml/min Est GFR (Non-Af Amer) ml/min BUN/Creatinine Ratio (10-20) Glucose (70-99(Fasting)) mg/dl Lactate (0.4-2.0) mmol/L Calcium (8.5-10.1) mg/dl Magnesium (1.7-2.4) mg/dl Total Bilirubin (0.2-1.0) mg/dl AST (13-39) U/L ALT (7-52) U/L Alkaline Phosphatase (34-104) U/L Total Creatine Kinase (26-192) U/L Troponin I (0-0.04) ng/ml Total Protein (6.0-8.3) gm/dl Albumin (3.4-5.0) gm/dl Globulin (2.5-4.0) gm/dl Albumin/Globulin Ratio (0.9-2) Lipase (11-82) U/L Procalcitonin < 0.05 (0-0.5) ng/ml TSH (0.300-4.500) uIu/ml HCG, Qual Negative (Negative) Lyme Disease IgG Ab Negative (Negative) Lyme Disease IgM Ab Negative (Negative) 07/04/21 07/04/21 07/04/21 Range/Units 16:27 16:27 16:27 WBC (4.8-10.8) K/uL RBC (4.2-5.4) M/uL Hgb (12.0-16.0) g/dL Hct (37-47) % MCV (80-100) fL MCH (25-34) pg MCHC (32-36) g/dL RDW Std Deviation (36.4-46.3) fL RDW Coeff of Yash (11.5-14.5) % Plt Count (130-400) K/uL MPV (7.4-10.4) fL Immature Gran % (Auto) % Neut % (Auto) % Lymph % (Auto) % Hayes % (Auto) % Eos % (Auto) % Baso % (Auto) % Neut # (Auto) (1.4-6.5) K/uL Lymph # (Auto) (1.2-3.4) K/uL Hayes # (Auto) (0.11-0.59) K/uL Eos # (Auto) (0-0.5) K/uL Baso # (Auto) (0-0.2) K/uL Immature Gran # (Auto) (0.00-0.02) K/uL PT (9.0-12.0) Seconds INR (0.9-1.1) APTT (21.0-31.0) Seconds PTT Ratio Sodium 136 (136-145) mmol/L Potassium (3.5-5.1) mmol/L Chloride 108 H (98-107) mmol/L Carbon Dioxide 20 L (21-32) mmol/L Anion Gap 8 (3-11) BUN 20 (6-23) mg/dl Creatinine 0.56 L (0.6-1.2) mg/dl Est Cr Clr Drug Dosing 174.8 ml/min Est GFR ( Amer) 142.0 ml/min Est GFR (Non-Af Amer) 122.5 ml/min BUN/Creatinine Ratio 35.7 H (10-20) Glucose 78 (70-99(Fasting)) mg/dl Lactate 1.2 (0.4-2.0) mmol/L Calcium 8.1 L (8.5-10.1) mg/dl Magnesium 2.3 (1.7-2.4) mg/dl Total Bilirubin 0.4 (0.2-1.0) mg/dl AST (13-39) U/L ALT 31 (7-52) U/L Alkaline Phosphatase 81 (34-104) U/L Total Creatine Kinase 15 L (26-192) U/L Troponin I < 0.03 (0-0.04) ng/ml Total Protein 6.7 (6.0-8.3) gm/dl Albumin 3.7 (3.4-5.0) gm/dl Globulin 3.0 (2.5-4.0) gm/dl Albumin/Globulin Ratio 1.2 (0.9-2) Lipase 17 (11-82) U/L Procalcitonin (0-0.5) ng/ml TSH 4.098 (0.300-4.500) uIu/ml HCG, Qual (Negative) Lyme Disease IgG Ab (Negative) Lyme Disease IgM Ab (Negative) Imaging Data Radiologist's Impression: Venous Doppler Study 07/04/21 22:22 ULTRASOUND BILATERAL LOWER EXTREMITY VENOUS CLINICAL HISTORY: Lower extremity edema. Covid. COMPARISON STUDY: Bilateral lower extremity venous ultrasound dated 03/28/2018 TECHNIQUE: Real-time, grayscale, and color Doppler sonography of the deep veins of the right and left lower extremity was performed from the inguinal crease to the calf. Compression and augmentation were utilized. FINDINGS: There is no sonographic evidence of deep venous thrombosis identified in the right or left lower extremity. The common femoral, superficial femoral, and popliteal veins are patent and normally compressible bilaterally. The greater saphenous vein and the profunda femoris vein at the junction with the common femoral vein are clear in both legs. The visualized calf veins are patent bilaterally. IMPRESSION: There is no sonographic evidence of deep venous thrombosis identified in the right or left lower extremity. ACT 112: Negative or not required by law. Electronically signed by: Levar Cade M.D. 07/05/2021 7:01 AM XR chest 1V portable CLINICAL HISTORY: Atypical chest pain. COMPARISON STUDY: Chest radiograph performed earlier today. FINDINGS: Lung volumes are mildly diminished. There is no pneumothorax or pleural effusion. There is been interval development of possible mild left midlung opacity. Cardiac size is normal. There is no evidence for pulmonary edema. There is no lobar consolidation. IMPRESSION: Interval development of possible mild left midlung opacity. An infectious process cannot be excluded. ACT 112: Negative or not required by law. Electronically signed by: Geremias Andrews M.D. 07/04/2021 4:05 PM Brain MRI WITHOUT CONTRAST HISTORY: vision changes, headache, weakness, covid 19 TECHNIQUE: Multiplanar multisequence MRI of the brain was performed without the use of contrast. COMPARISON STUDY: Head CT 07/04/2021. Brain MRI 03/11/2021. FINDINGS: There are no areas of restricted diffusion to suggest acute inf arction. The midline structures are intact. The paranasal sinuses are clear. The mastoid air cells are clear. The ventricles and sulci are within normal limits for age. There is no mass, hematoma, midline shift. The major vascular flow- voids at the skull base are well maintained. Prominence of the adenoid tonsils, unchanged. IMPRESSION: No significant change compared to the prior study. No acute intracranial abnormality. Electronically signed by: El Escamilla M.D. 07/04/2021 8:19 PM MDM Narrative [facility] and [facility] room assignment noting the patient was seen during a period of high volume and acuity during the COVID-19 pandemic. Patient did consent to evaluation in the waiting room. Care was taken so as to protect privacy in regard to questions. Review was performed of nursing notes and vital signs. I did review pertinent previous visits and patient history. After obtaining a thorough history and physical examination the above work up was performed. Patient presents to us today for evaluation of several symptoms. Patient was recently diagnosed with COVID-19 she notes at [facility] 8 days ago. Since that time she has noted weakness, vision change, chest pain, decreased appetite, decreased food intake, headache. She is nontoxic on examination. Vital signs stable. No signs of meningitis or encephalitis clinically. She states that following this diagnosis she was given p.o. Decadron. Patient does not have any focal deficit on examination. NIH stroke scale 0. Options of care were discussed with the patient. I did review her previous vi sits. Patient has had a thorough work-up in the recent past. Given the patient's subjective complaints of worsening vision change I did find that imaging of the brain would be reasonable to proceed despite recent imaging in the past. She had a noncontrast head CT last night. I will proceed with an MRI as the patient cannot have CT contrast even with premedication therefore CTA head and neck were not ordered. Chest x-ray was also added to evaluate for the patient's chest pain as well as EKG. Appropriate labs were also ordered regarding her complaints at this time. Chest x-ray reveals possible small pneumonia but the patient has no cough or shortness of breath. EKG reveals normal sinus rhythm with sinus arrhythmia at a rate of 71 bpm. QTc 461. QT 424. QRS 88. This was compared to EKG of July 03, 2021. QT has lengthened. No ST elevation. Patient's troponin is negative and compared to troponin earlier today is unchanged. Patient was then evaluated in room C5. She was resting comfortably. She was requesting a drink of water. This was provided. She was able to drink this without issue. She did not want any pain medication. She was ordered IV fluids at a maintenance rate. This was to replenish fluids lost through decreased oral intake today. White count improved compared to earlier today at 14.69. No anemia. No emergent metabolic disturbance. Mild hypocalcemia at 8.1. Troponin negative. Lipase within normal limits Pro-Joey, TSH and hCG all negative. Lyme testing negative. Patient's lactate is normal. The patient does have hemolyzed specimens of both the AST and potassium. I do not believe that repeat at this time are necessary as she had them earlier today which were normal. Patient was then sent to the MRI suite for imaging of the brain. Results as above. Prior to being sent to the MRI suite the patient had about 100 to 150 mL of IV normal saline infused total. Patient respectfully declined further fluids. She notes that she was adequately hydrated when she was here just earlier today. She was able to tolerate p.o. fluids and I believe this is reasonable. Indication for the fluids here were secondary to her subjective complaints of decreased oral intake today. Although at this time meningitis seems to be unlikely, we did discuss benefits and risk of a lumbar puncture. Patient respective declines this. Patient was then felt stable for discharge to follow-up in the outpatient setting. I discussed this with the patient. Patient expressed great concern about going home. The patient notes that she is worried about going home and desires to stay in the hospital overnight. I discussed this with the case management team that also spoke with the patient. I then discussed this with the hospitalist. Please refer to further documentation regarding her stay. Case was discussed with the attending physician. GCS: 15 In the evaluation and treatment of this patient the following differential diagnoses were entertained: AK, PE, pericarditis, costochondritis, dissection, pneumonia, CVA, TIA, among others. Impression & Plan Change in vision, COVID-19, Fatigue, Feeling weak, Headache Discharge Plan Visit Data Chief Complaint: Visual Disturbance Stated Complaint: HERE YESTERDAY, VISION GETTING WORSE ED Provider: Ivy Prescott ED Midlevel Provider: Jean-Paul Steward Discharge Problem: Change in vision, COVID-19, Fatigue, Feeling weak, Headache Patient Disposition: Admitted As Inpatient Condition: Good Discharge Instructions Interventions: ED Discharge Assessment Last Done: 07/05/21 00:45
--- NOTE | 2021-07-04 16:06 | XRay Report ---
XR chest 1V portable CLINICAL HISTORY: Atypical chest pain. COMPARISON STUDY: Chest radiograph performed earlier today. FINDINGS: Lung volumes are mildly diminished. There is no pneumothorax or pleural effusion. There is been interval development of possible mild left midlung opacity. Cardiac size is normal. There is no evidence for pulmonary edema. There is no lobar consolidation. IMPRESSION: Interval development of possible mild left midlung opacity. An infectious process cannot be excluded. ACT 112: Negative or not required by law. Electronically signed by: Geremias Andrews M.D. 07/04/2021 4:05 PM
[2021-07-04 16:36] LABS: Basophils # (auto) 0.02 K/uL (0-0.2); Basophils % (auto) 0.1 %; Eosinophils # (auto) 0.03 K/uL (0-0.5); Eosinophils % (auto) 0.2 %; Hematocrit (blood only) 38.9 % (37-47); Hemoglobin 12.5 g/dL (12.0-16.0); Immature Granulocytes # (auto) 0.22 K/uL (0.00-0.02); Immature Granulocytes % (auto) 1.5 %; Lymphocytes # (auto) 3.71 K/uL (1.2-3.4); Lymphocytes % (auto) 25.3 %; Mean Corpuscular Hemoglobin 28.8 pg (25-34); Mean Corpuscular Hgb Conc 32.1 g/dL (32-36); Mean Corpuscular Volume 89.6 fL (80-100); Mean Platelet Volume 9.3 fL (7.4-10.4); Monocytes # (auto) 1.14 K/uL (0.11-0.59); Monocytes % (auto) 7.8 %; Neutrophils # (auto) 9.57 K/uL (1.4-6.5); Neutrophils % (auto) 65.1 %; Platelet Count 310 K/uL (130-400); RDW Coefficient of Variation 15.4 % (11.5-14.5); RDW Standard Deviation 50.4 fL (36.4-46.3); Red Blood Count 4.34 M/uL (4.2-5.4); White Blood Count 14.69 K/uL (4.8-10.8)
[2021-07-04] MEDS ORDERED: SODIUM CHLORIDE 0.9% 1000ML 1,000 ML IV SCH (16:45)
[2021-07-04 16:46] LABS: Partial Thromboplastin Ratio 0.9; Partial Thromboplastin Time 24.9 Seconds (21.0-31.0); Prothrombin Time 9.7 Seconds (9.0-12.0)
[2021-07-04 16:50] LABS: Pregnancy Test, Serum Negative (Negative)
[2021-07-04 16:57] LABS: Troponin I < 0.03 ng/ml (0-0.04)
[2021-07-04 17:08] LABS: Procalcitonin < 0.05 ng/ml (0-0.5)
[2021-07-04 17:17] LABS: Lyme Ab IgG w/WB Rflx Negative (Negative); Lyme Ab IgM w/WB Rflx Negative (Negative)
[2021-07-04 17:39] LABS: Alanine Aminotransferase 31 U/L (7-52); Albumin Globulin Ratio 1.2 (0.9-2); Albumin Level 3.7 gm/dl (3.4-5.0); Alkaline Phosphatase 81 U/L (34-104); Anion Gap 8 (3-11); BUN Creatinine Ratio 35.7 (10-20); Bilirubin,Total 0.4 mg/dl (0.2-1.0); Blood Urea Nitrogen 20 mg/dl (6-23); Calcium 8.1 mg/dl (8.5-10.1); Carbon Dioxide 20 mmol/L (21-32); Chloride 108 mmol/L (98-107); Creatine Kinase 15 U/L (26-192); Creatinine Clr Calc Pharmacy 174.8 ml/min; Est GFR (Non-African American) 122.5 ml/min; Glucose 78 mg/dl (70-99(Fasting)); Lipase 17 U/L (11-82); Magnesium 2.3 mg/dl (1.7-2.4); Sodium 136 mmol/L (136-145); Total Protein 6.7 gm/dl (6.0-8.3)
--- NOTE | 2021-07-04 20:21 | Magnetic Resonance Report ---
Brain MRI WITHOUT CONTRAST HISTORY: vision changes, headache, weakness, covid 19 TECHNIQUE: Multiplanar multisequence MRI of the brain was performed without the use of contrast. COMPARISON STUDY: Head CT 07/04/2021. Brain MRI 03/11/2021. FINDINGS: There are no areas of restricted diffusion to suggest acute infarction. The midline structu res are intact. The paranasal sinuses are clear. The mastoid air cells are clear. The ventricles and sulci are within normal limits for age. There is no mass, hematoma, midline shift. The major vascular flow-voids at the skull base are well maintained. Prominence of the adenoid tonsils, unchanged. IMPRESSION: No significant change compared to the prior study. No acute intracranial abnormality. Electronically signed by: El Escamilla M.D. 07/04/2021 8:19 PM
[2021-07-04] MEDS ORDERED: lisinopril 5 MG TAB PO ONE (22:21)
[2021-07-04] MEDS ORDERED: LORazepam 0.5 MG/1 ML VIAL IV STA (22:22)
--- NOTE | 2021-07-04 22:23 | History & Physical Report ---
Date of Service July 04, 2021 Assessment & Plan (1) Headache: Plan: With worsening of chronic visual abnormalities described as spots Possible migraine Hypertension possibly contributory to symptoms following recent steroid Rx for COVID-19 illness Anxiety possibly contributory as well, possible somatoform disorder as per records given history of multiple physical symptoms over the last few years. Chest pain possibly from elevated BP and anxiety May need to rule out pulmonary embolism given history leg DVT and current COVID- 19 illness Hypokalemia secondary to decreased p.o. intake hx inappropriate sinus tachycardia as per records asthma, stable fibromyalgia/ankylosing spondylitis as per records prediabetes as per patient, hemoglobin A1c of 5.6 last May, past tobacco abuse Medical telemetry Analgesia Initiate amlodipine for BP control. [facility] consult, second opinion as per patient's request for headache, dizziness visual abnormality complaints LE venous Dopplers for PE work-up VQ scan (in place of CT angio due to patient IV dye allergy if nuclear medicine able to do on COVID-19 patients) TTE Re: Chest pain Replace potassium Further management pending work-up results DVT prophylaxis per Lovenox subcu Full code Text document was generated using [employer] voice recognition software. It may contain grammatical or spelling errors. Kindly contact undersigned for clarification of any documentation item in question. History of Present Illness Chief Complaint: Headache, worsening visual spots, chest pain, weakness Primary Care Provider: Angela Arevalo MD History obtained from patient and records. Medical history significant for inappropriate sinus tachycardia, hyperlipidemia, history lower extremity DVT status post anticoagulation, asthma, HUGO, GERD, fibromyalgia, ankylosing spondylitis, prediabetes as per patient, past tobacco abuse. Last confinement 2014 for chest pain attributed to viral pericarditis. Patient discharged on NSAIDs and colchicine course. One year history of lightheadedness symptoms associated with tunnel vision, visual disturbance described as spots, ringing in the ears, achy headache symptoms, near syncope. Possible somatoform disorder which patient disagrees with as per PCP note. Outpatient TTE from January 2021 showed EF of 60 to 64%. No LVH and no valvular disease. Patient evaluated by [facility] 3 months ago. Working diagnosis vertiginous migraine. Patient did not tolerate Topamax Rx. Outpatient tilt test evaluate for POTS was negative. [facility] later prescribed acetazolamide for possible Mnire's disease. Patient scheduled to see [facility] for neurologic symptoms for second opinion as per outpatient records. Patient has not been well the last 2 weeks. Cough and congestion symptoms. Outpatient COVID-19 test was positive. Patient has not received COVID-19 vaccination. Decadron course prescribed by outpatient provider. Decadron stopped after 3 days because of increasing sugars. SBP noted to be elevated at home 1 40-1 80s as per patient. Patient noted worsening of chronic head pressure, dizziness, visual abnormality symptoms. Patient evaluated at [facility] ER but was sent home with negative work-up. Patient returned to ER yesterday because of persistent symptoms associated with worsening of chronic chest pain. CT chest could not be done due to IV dye allergy. Patient sent home. Patient brought by to [facility] ER for evaluation because of persistent symptoms. Patient subsequently discharged home. Patient returned to [facility] ER because of worsening symptoms and weakness, having trouble moving around. Chest pain making it hard for her to breathe. SBP 187/135 at one point at the ER. 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 Allergies Allergy/AdvReac Type Severity Reaction Status Date / Time amoxicillin Allergy Severe ANAPHYLAXIS Verified 07/04/21 01:04 clavulanic acid Allergy Severe ANAPHYLAXIS Verified 07/04/21 01:04 Iodinated Contrast Media Allergy Severe Hives, Verified 07/04/21 22:45 tongue swelling doxycycline Allergy Intermediate Rash Verified 07/04/21 01:04 sulfamethoxazole Allergy Intermediate tongue Verified 07/04/21 01:04 [From Bactrim] swelling trimethoprim [From Bactrim] Allergy Intermediate tongue Verified 07/04/21 01:04 swelling metronidazole Allergy Mild rash Verified 07/04/21 01:04 casein Allergy Unknown per Verified 07/04/21 01:04 allergy testing coffee (Coffea arabica) Allergy Unknown per Verified 07/04/21 01:04 allergy testing corn Allergy Unknown per Verified 07/04/21 01:04 allergy testing Penicillins Allergy Unknown per Verified 06/24/21 23:49 allergy testing wheat Allergy Unknown per Verified 06/24/21 23:49 allergy testing Home Medications Medication Instructions Recorded Confirmed Type melatonin 1 mg tablet 1 mg PO HS 03/27/18 07/04/21 History multivitamin 1 tab PO QAM 03/27/18 07/04/21 History cholecalciferol (vitamin D3) 50 2,000 unit PO QAM 04/19/19 07/04/21 History mcg (2,000 unit) capsule (Vitamin D3) fluticasone propionate 50 1 sprays INTNAS DAILY 14 Days #9.9 04/28/19 07/04/21 Rx mcg/actuation nasal ml spray,suspension (Allergy Relief (fluticasone)) magnesium oxide 250 mg PO HS 05/19/19 07/04/21 History loratadine 10 mg tablet (Claritin) 10 mg PO DAILY 03/21/20 07/04/21 History meclizine 25 mg tablet 25 mg PO TID PRN #10 tab 12/05/20 07/04/21 Rx famotidine 20 mg tablet (Pepcid) 20 mg PO DAILY 06/24/21 07/04/21 History benzonatate 100 mg capsule 100 mg PO TID PRN #30 cap 07/04/21 07/04/21 Rx dexamethasone 6 mg tablet 12 mg PO DAILY 07/04/21 07/04/21 History pantoprazole 40 mg tablet,delayed 40 mg PO DAILY 07/04/21 07/04/21 History release rizatriptan 5 mg tablet 5 mg PO UD PRN 07/04/21 07/04/21 History Past Med/Surg History Medical History Abnormal EEG Ankylosing spondylitis Anxiety and depression Degenerative disc disease DVT (deep venous thrombosis) Eustachian tube dysfunction GERD (gastroesophageal reflux disease) Heart palpitations High cholesterol History of bradycardia History of bulimia History of pre-eclampsia Insomnia Iron deficiency anemia Migraine Morbid obesity with BMI of 40.0-44.9, adult Seasonal allergies Thoracic disc disease Vitamin B12 deficiency Vitamin D deficiency Surgical History History of cardiac cath 06/2015 @ [facility] Sonu--d/t chest pain, normal no stents History of cholecystectomy History of esophagogastroduodenoscopy (EGD) History of wisdom tooth extraction Family History Father Hypertension Mother Diabetes Grandfather (Maternal) Diabetes Coronary heart disease Myocardial infarction Congestive heart failure Colorectal cancer Grandfather (Paternal) Diabetes Coronary heart disease Myocardial infarction, Onset Age: 50 Grandmother (Paternal) Pulmonary emphysema Sick sinus syndrome Diabetes Pacemaker Grandmother (Maternal) Family history of diabetes mellitus Aunt Pulmonary emphysema Family/Other Myocardial infarction, Onset Age: 37 Coronary heart disease Uncle Stroke Other Asthma Lymphoma No family history of adverse response to anesthesia Denies family history of Ovarian cancer Prostate cancer Breast cancer Social History Smoking Status: Never smoker Tobacco Type: Cigarettes Second Hand Exposure: No; Hx Alcohol Use: No Hx Substance Use: No Preferred Language: Indonesian Communication Ability: Effective Visual Impairment: No Limitations Hearing Ability: Normal Dam Tender Assistant Required: No Beliefs That Will Affect Care: None marital status: Current Living Situation: Family Current Living Situation Comment: Lives with and daughter current occupational status: unemployed Other Information That Helps Us Care for You: No Feels Safe at Home: Yes Safety Concerns: Feels Safe At This Time Childhood Exposure to Second-Hand Smoke: Yes caffeine: No during the past year weight has: remained stable Dental Care, Regularly: Yes Physical Activity Frequency: 5-6 Times per Week Seatbelt Use: never Sunscreen Use: Yes Assistive Devices: Contacts and Glasses Review of Systems Review of Systems: As per HPI, all 10 systems reviewed, all other ROS negative Physical Exam Physical Exam: GENERAL: Uncomfortable, anxious, morbidly obese, no respiratory distress SKIN: Normal color, warm HEENT: Bespectacled, pink palpebral conjunctivae, no ptosis, dry buccal mucosa NECK : Supple, short neck, no tenderness CHEST : CTA, no tenderness HEART : RRR, no obvious murmurs ABDOMEN: Some distention, nontender EXTREMITIES : Minimal LE swelling, no LE tenderness, no other conspicuous deformities noted NEUROLOGIC : Coherent, no facial asymmetry, gait and stance not assessed Results & Data Results & Data ([facility]) Vital Signs (Past 12 Hours) Vital Signs Temp Pulse Pulse Resp BP BP Pulse Ox 07/04/21 22:00 81 17 187/135 H 100 07/04/21 21:58 73 16 164/118 H 97 07/04/21 21:50 93 H 15 170/117 H 97 07/04/21 21:31 91 H 19 99 07/04/21 21:30 81 18 99 07/04/21 21:00 75 14 160/108 H 98 07/04/21 20:30 74 16 135/103 H 98 07/04/21 20:18 72 12 98 07/04/21 20:00 65 20 129/60 95 07/04/21 16:38 68 20 120/84 98 07/04/21 16:35 68 20 95 07/04/21 12:56 36.4 C L 76 16 140/90 97 07/04/21 12:54 65 20 120/84 97 Laboratory Results Laboratory Results WBC 14.69 K/uL (4.8-10.8) H 07/04/21 16:27 RBC 4.34 M/uL (4.2-5.4) 07/04/21 16:27 Hgb 12.5 g/dL (12.0-16.0) 07/04/21 16:27 Hct 38.9 % (37-47) 07/04/21 16:27 MCV 89.6 fL (80-100) 07/04/21 16:27 MCH 28.8 pg (25-34) 07/04/21 16: MCHC 32.1 g/dL (32-36) 07/04/21 16:27 RDW Std Deviation 50.4 fL (36.4-46.3) H 07/04/21 16:27 RDW Coeff of Yash 15.4 % (11.5-14.5) H 07/04/21 16:27 Plt Count 310 K/uL (130-400) 07/04/21 16:27 MPV 9.3 fL (7.4-10.4) 07/04/21 16:27 Immature Gran % (Auto) 1.5 % 07/04/21 16:27 Neut % (Auto) 65.1 % 07/04/21 16:27 Lymph % (Auto) 25.3 % 07/04/21 16:27 Adams % (Auto) 7.8 % 07/04/21 16:27 Eos % (Auto) 0.2 % 07/04/21 16:27 Baso % (Auto) 0.1 % 07/04/21 16:27 Neut # (Auto) 9.57 K/uL (1.4-6.5) H 07/04/21 16:27 Lymph # (Auto) 3.71 K/uL (1.2-3.4) H 07/04/21 16:27 Adams # (Auto) 1.14 K/uL (0.11-0.59) H 07/04/21 16: Eos # (Auto) 0.03 K/uL (0-0.5) 07/04/21 16: Baso # (Auto) 0.02 K/uL (0-0.2) 07/04/21 16: Immature Gran # (Auto) 0.22 K/uL (0.00-0.02) H 07/04/21 16: PT 9.7 Seconds (9.0-12.0) 07/04/21 16: INR 1.0 (0.9-1.1) 07/04/21 16: APTT 24.9 Seconds (21.0-31.0) 07/04/21 16: PTT Ratio 0.9 07/04/21 16: Sodium 136 mmol/L (136-145) 07/04/21 16: Potassium mmol/L (3.5-5.1) 07/04/21 16: Chloride 108 mmol/L (98-107) H 07/04/21 16: Carbon Dioxide 20 mmol/L (21-32) L 07/04/21 16: Anion Gap 8 (3-11) 07/04/21 16: BUN 20 mg/dl (6-23) 07/04/21 16: Creatinine 0.56 mg/dl (0.6-1.2) L 07/04/21 16: Est Cr Clr Drug Dosing 174.8 ml/min 07/04/21 16: Est GFR ( Amer) 142.0 ml/min 07/04/21 16: Est GFR (Non-Af Amer) 122.5 ml/min 07/04/21 16: BUN/Creatinine Ratio 35.7 (10-20) H 07/04/21 16: Glucose 78 mg/dl (70-99(Fasting)) 07/04/21 16: Lactate 1.2 mmol/L (0.4-2.0) 07/04/21 16: Calcium 8.1 mg/dl (8.5-10.1) L 07/04/21 16: Magnesium 2.3 mg/dl (1.7-2.4) 07/04/21 16: Total Bilirubin 0.4 mg/dl (0.2-1.0) 07/04/21 16: AST U/L (13-39) 07/04/21 16: ALT 31 U/L (7-52) 07/04/21 16: Alkaline Phosphatase 81 U/L (34-104) 07/04/21 16: Total Creatine Kinase 15 U/L (26-192) L 07/04/21 16: Troponin I < 0.03 ng/ml (0-0.04) 07/04/21: Total Protein 6.7 gm/dl (6.0-8.3) 07/04/21 16: Albumin 3.7 gm/dl (3.4-5.0) 07/04/21: Globulin 3.0 gm/dl (2.5-4.0) 07/04/21: Albumin/Globulin Ratio 1.2 (0.9-2) 07/04/21: Lipase 17 U/L (11-82) 07/04/21 16: Procalcitonin < 0.05 ng/ml (0-0.5) 07/04/21: TSH 4.098 uIu/ml (0.300-4.500) 07/04/21 16: HCG, Qual Negative (Negative) 07/04/21: Lyme Disease IgG Ab Negative (Negative) 07/04/21 16: Lyme Disease IgM Ab Negative (Negative) 07/04/21 16: Impressions Brain MRI 07/04/21 15:35 Brain MRI WITHOUT CONTRAST HISTORY: vision changes, headache, weakness, covid 19 TECHNIQUE: Multiplanar multisequence MRI of the brain was performed without the use of contrast. COMPARISON STUDY: Head CT 07/04/2021. Brain MRI 03/11/2021. FINDINGS: There are no areas of restricted diffusion to suggest acute infarction. The midline structures are intact. The paranasal sinuses are clear. The mastoid air cells are clear. The ventricles and sulci are within normal limits for age. There is no mass, hematoma, midline shift. The major vascular flow-voids at the skull base are well maintained. Prominence of the adenoid tonsils, unchanged. IMPRESSION: No significant change compared to the prior study. No acute intracranial abnormality. Electronically signed by: El Escamilla M.D. 07/04/2021 8:19 PM Chest X-Ray 07/04/21 15:36 XR chest 1V portable CLINICAL HISTORY: Atypical chest pain. COMPARISON STUDY: Chest radiograph performed earlier today. FINDINGS: Lung volumes are mildly diminished. There is no pneumothorax or pleural effusion. There is been interval development of possible mild left m idlung opacity. Cardiac size is normal. There is no evidence for pulmonary edema. There is no lobar consolidation. IMPRESSION: Interval development of possible mild left midlung opacity. An infectious process cannot be excluded. ACT 112: Negative or not required by law. Electronically signed by: Geremias Andrews M.D. 07/04/2021 4:05 PM Diagnostic Findings EKG as per my interpretation: Rate 70, NSR, LAD, LAFB, diffuse T wave flattening, LVH
[2021-07-04] MEDS ORDERED: MAGNESIUM OXIDE 250 MG PO SCH (22:36)
[2021-07-04] MEDS ORDERED: MAGNESIUM PO SCH (22:36)
[2021-07-04] MEDS ORDERED: hydrOXYzine HCl 10 MG TAB PO PRN (22:41)
[2021-07-04] MEDS ORDERED: amLODIPine BESYLATE 5 MG TAB PO ONE (22:45)
[2021-07-04] MEDS: MAGNESIUM OXIDE 400 MG TAB PO SCH (23:14)
[2021-07-04 23:45] LABS: Magnesium 2.1 mg/dl (1.7-2.4); Potassium 3.1 mmol/L (3.5-5.1)
[2021-07-05] MEDS ORDERED: ACETAMINOPHEN 325 MG TAB PO PRN (01:04)
[2021-07-05] MEDS ORDERED: NITROGLYCERIN SL 0.4 MG/TAB TAB SL PRN (01:04)
[2021-07-05] MEDS ORDERED: traMADol HCL 50 MG TABLET PO PRN (01:04)
[2021-07-05] MEDS ORDERED: PROMETHAZINE HCL 12.5 MG in SODIUM CHLORIDE 0.9% 50 ML IV PRN (01:04)
[2021-07-05] MEDS ORDERED: BENZONATATE 100 MG CAPSULE PO PRN (01:04)
[2021-07-05] MEDS ORDERED: POTASSIUM CHLORIDE CRTAB 20 MEQ TABCR PO STA (02:33)
[2021-07-05 05:51] LABS: Basophils # (auto) 0.02 K/uL (0-0.2); Basophils % (auto) 0.2 %; Eosinophils # (auto) 0.06 K/uL (0-0.5); Eosinophils % (auto) 0.6 %; Hematocrit (blood only) 38.9 % (37-47); Hemoglobin 12.2 g/dL (12.0-16.0); Immature Granulocytes # (auto) 0.21 K/uL (0.00-0.02); Lymphocytes # (auto) 3.57 K/uL (1.2-3.4); Lymphocytes % (auto) 34.8 %; Mean Corpuscular Hemoglobin 27.9 pg (25-34); Mean Corpuscular Hgb Conc 31.4 g/dL (32-36); Mean Corpuscular Volume 88.8 fL (80-100); Mean Platelet Volume 9.5 fL (7.4-10.4); Monocytes # (auto) 0.64 K/uL (0.11-0.59); Monocytes % (auto) 6.2 %; Neutrophils # (auto) 5.76 K/uL (1.4-6.5); Neutrophils % (auto) 56.2 %; Platelet Count 276 K/uL (130-400); RDW Coefficient of Variation 15.3 % (11.5-14.5); RDW Standard Deviation 49.4 fL (36.4-46.3); Red Blood Count 4.38 M/uL (4.2-5.4); White Blood Count 10.26 K/uL (4.8-10.8)
[2021-07-05 06:00] LABS: Partial Thromboplastin Time 25.6 Seconds (21.0-31.0)
[2021-07-05 06:13] LABS: Troponin I < 0.03 ng/ml (0-0.04)
[2021-07-05 06:16] LABS: Anion Gap 7 (3-11); BUN Creatinine Ratio 26.4 (10-20); Blood Urea Nitrogen 14 mg/dl (6-23); Calcium 7.8 mg/dl (8.5-10.1); Carbon Dioxide 22 mmol/L (21-32); Chloride 106 mmol/L (98-107); Creatinine Clr Calc Pharmacy 184.7 ml/min; Est GFR (African American) 144.6 ml/min; Est GFR (Non-African American) 124.8 ml/min; Glucose 80 mg/dl (70-99(Fasting)); Potassium 3.5 mmol/L (3.5-5.1); Sodium 135 mmol/L (136-145)
--- NOTE | 2021-07-05 07:02 | Ultrasound Report ---
ULTRASOUND BILATERAL LOWER EXTREMITY VENOUS CLINICAL HISTORY: Lower extremity edema. Covid. COMPARISON STUDY: Bilateral lower extremity venous ultrasound dated 03/28/2018 TECHNIQUE: Real-time, grayscale, and color Doppler sonography of the deep veins of the right and left lower extremity was performed from the inguinal crease to the calf. Compression and augmentation wer e utilized. FINDINGS: There is no sonographic evidence of deep venous thrombosis identified in the right or left lower extremity. The common femoral, superficial femoral, and popliteal veins are patent and normally compressible bilaterally. The greater saphenous vein and the profunda femoris vein at the junction w ith the common femoral vein are clear in both legs. The visualized calf veins are patent bilaterally. IMPRESSION: There is no sonographic evidence of deep venous thrombosis identified in the right or lef t lower extremity. ACT 112: Negative or not required by law. Electronically signed by: Levar Cade M.D. 07/05/2021 7:01 AM
[2021-07-05] MEDS: ENOXAPARIN INJ 40 MG/0.4 ML SYR SQ SCH (07:57)
[2021-07-05] MEDS: FAMOTIDINE 20 MG TAB PO SCH (07:59)
[2021-07-05] MEDS: PANTOprazole 40 MG TAB PO SCH (08:00)
[2021-07-05] MEDS: LORATADINE 10 MG TAB PO SCH (08:00)
[2021-07-05] MEDS: MULTIVITAMIN TAB PO SCH (08:00)
[2021-07-05] MEDS: FLUTICASONE PROPIONATE NA SPR 16 GM BTL SCH (08:01)
--- NOTE | 2021-07-05 10:35 | Neurology Consultation ---
Date of Consultation July 05, 2021 Assessment & Plan (1) Visual disturbance: (2) Headache: (3) Feeling weak: This patient has Covid-19 and has had worsening bifrontal tension-type headaches, blurry vision, and generalized sense of weakness over the last week or so. Currently she has no focal neurologic signs, meningeal signs, or encephalopathy. I suspect that the Covid-19 infection has produced her headaches, sense of weakness and fatigue, and blurry vision. MRI of the brain was unremarkable. Steroid use may have given her the symptoms as well. This patient has had a number of symptoms over the last several years which have defied specific diagnosis. She has had extensive neurologic testing at multiple places over the years without specific diagnosis. Recommendations: 1. treat tension headache with IV ketorolac. Avoid narcotics. Since the headache is not migrainous in nature I would avoid Triptans or other migraine medication. I do not have any specific medication for the blurry vision. 2. Avoid steroids for now. 3. Increase activity as able and consider physical therapy. 4. I see no need for additional neurologic testing at this time. Overall, I spent a total of 60 minutes with this case including review of records, review of MRI films, direct evaluation the patient at bedside, and discussion of the case with the patient and RN at bedside, and Dr. Duong, including differential diagnosis and treatment options. History of Present Illness Reason for Consultation: patient is a 35-year-old, who I was asked to see at the request of Dr. Duong, for neurologic consultation regarding progressive headache, blurry vision, and generalized weakness. Requesting Physician: Dr. Duong Attending Physician: Joseph Duong MD History of Present Illness Patient was seen by Dr. Moise in April of 2019 for intractable tension headaches and dizziness ( much like a lightheadedness). Over the next 2 years she has had a very extensive neurologic evaluations at multiple places with multiple clinicians. This is a partial list of the testing that she has received and no significant abnormalities have been identified: MRI of brain with without contrast 2015, November 2017, March 2020 MRA of head December 2020, May 2020 MRV of head May 2019, May 2020, MRV of head with contrast report not available 2020 CT of head-January 2021, December 2020, November 2020, April 2020October 2017 CT cervical spine December 2020 CT sinuses April 2020 CT echocardiogram November 2020 MRI cervical spine July 2019, January 2018, January 2016 MRI thoracic spine November 2017 Lumbar puncture June 2020 opening pressure 19, [facility] Venous Doppler 2019 EEG continuous video monitoring x4 days [facility] June 2020 Abnormal EEG at [facility], report unavailable She saw Jaclyn huynh PA-C in March of 2021 for evaluation and this is additional history: Neurology [facility] Indira EEG was abnormal no report, Went to [facility] report for 4 day EEG video monitoring, multiple symptoms no EEG correlation, no indication of epilepsy. Previously she took Keppra which did not help. meds not helping, meclizine and ativen, aleve and tylenol, verapamil cause side effects, metoprolol caused low blood pressure, Effexor caused side effects panic attacks and lethargy per chart having dizziness in 2018, Tension-type headache, unspecified, intractable: Previously seen by [facility] extensive testing including stress, echo and EEG, patient did not have tilt test Now she sees director equipment Emerson Valente, field attendant report pending no prior diuretic, past medical history of B12 deficiency, atypical chest pain, vitamin D deficiency, hyperlipidemia, GERD and anxiety/depression She declined SSRIs, did not take nortriptyline. Over the last several months she has had bifrontal aching headaches which wax and wane, pressure nature. There is no photophobia, sonophobia, nausea, or vomiting. She has some blurry vision and occasional bright spots in her vision which come and go as well lasting anywhere from 1 hour to 1 day. She has had a sense of muscle weakness and trouble walking but has not had any abnormalities found. She saw Dr. Braxton April 17, 2021 for nonspecific dizziness/lightheadedness. There was a perception of rocking motion. Topiramate was discontinued and acetazolamide 500 mg once daily was initiated. ENT apparently had seen her and did not have any specific findings She apparently. The acetazolamide. Meclizine did not help. Around 9 days ago she developed stuffy nose and fever. She was diagnosed with Covid-19 , likely obtained from her father who was positive. Her headache, blurry vision and sense of weakness in the muscles has been worse. She has visited the emergency room 2 or 3 times in the last few days. She arrived to the emergency room July 04 at 12:45 p.m. with a temperature of 36.4, pulse 76, respiratory rate 20, blood pressure 140/90, and O2 saturation 97%. Exam was nonfocal and she was oriented without encephalopathy or meningeal signs. WBC was elevated but she has been on steroids the past week. She stopped couple of days ago. Other labs were unremarkable. TSH was 4.09. Chest x-ray was unremarkable. MRI of the brain showed no acute changes. There were no white matter changes or other abnormalities. I reviewed these films.Ultrasound showed no evidence of DVT in the legs. Allergies Allergy/AdvReac Type Severity Reaction Status Date / Time amoxicillin Allergy Severe ANAPHYLAXIS Verified 07/04/21 01:04 clavulanic acid Allergy Severe ANAPHYLAXIS Verified 07/04/21 01:04 Iodinated Contrast Media Allergy Severe Hives, Verified 07/04/21 22:45 tongue swelling doxycycline Allergy Intermediate Rash Verified 07/04/21 01:04 sulfamethoxazole Allergy Intermediate tongue Verified 07/04/21 01:04 [From Bactrim] swelling trimethoprim [From Bactrim] Allergy Intermediate tongue Verified 07/04/21 01:04 swelling metronidazole Allergy Mild rash Verified 07/04/21 01:04 casein Allergy Unknown per Verified 07/04/21 01:04 allergy testing coffee (Coffea arabica) Allergy Unknown per Verified 07/04/21 01:04 allergy testing corn Allergy Unknown per Verified 07/04/21 01:04 allergy testing Penicillins Allergy Unknown per Verified 06/24/21 23:49 allergy testing wheat Allergy Unknown per Verified 06/24/21 23:49 allergy testing Home Medications Medication Instructions Recorded Confirmed Type melatonin 1 mg tablet 1 mg PO 03/27/18 07/04/21 History multivitamin 1 tab PO QAM 03/27/18 07/04/21 History cholecalciferol (vitamin D3) 50 2,000 unit PO QAM 04/19/19 07/04/21 History mcg (2,000 unit) capsule (Vitamin D3) fluticasone propionate 50 1 sprays INTNAS DAILY 14 Days #9.9 04/28/19 07/04/21 Rx mcg/actuation nasal ml spray,suspension (Allergy Relief (fluticasone)) magnesium oxide 250 mg PO 05/19/19 07/04/21 History loratadine 10 mg tablet (Claritin) 10 mg PO DAILY 03/21/20 07/04/21 History meclizine 25 mg tablet 25 mg PO TID PRN #10 tab 12/05/20 07/04/21 Rx famotidine 20 mg tablet (Pepcid) 20 mg PO DAILY 06/24/21 07/04/21 History benzonatate 100 mg capsule 100 mg PO TID PRN #30 cap 07/04/21 07/04/21 Rx dexamethasone 6 mg tablet 12 mg PO DAILY 07/04/21 07/04/21 History pantoprazole 40 mg tablet,delayed 40 mg PO DAILY 07/04/21 07/04/21 History release rizatriptan 5 mg tablet 5 mg PO UD PRN 07/04/21 07/04/21 History Patient History Medical History Abnormal EEG Ankylosing spondylitis Anxiety and depression Degenerative disc disease DVT (deep venous thrombosis) Eustachian tube dysfunction GERD (gastroesophageal reflux disease) Heart palpitations High cholesterol History of bradycardia History of bulimia History of pre-eclampsia Insomnia Iron deficiency anemia Migraine Morbid obesity with BMI of 40.0-44.9, adult Seasonal allergies Thoracic disc disease Vitamin B12 deficiency Vitamin D deficiency Surgical History History of cardiac cath 06/2015 @ [facility] [place]--d/t chest pain, normal no stents History of cholecystectomy History of esophagogastroduodenoscopy (EGD) History of wisdom tooth extraction Family History Father Hypertension Mother Diabetes Grandfather (Maternal) Diabetes Coronary heart disease Myocardial infarction Congestive heart failure Colorectal cancer Grandfather (Paternal) Diabetes Coronary heart disease Myocardial infarction, Onset Age: 50 Grandmother (Paternal) Pulmonary emphysema Sick sinus syndrome Diabetes Pacemaker Grandmother (Maternal) Family history of diabetes mellitus Aunt Pulmonary emphysema Family/Other Myocardial infarction, Onset Age: 37 Coronary heart disease Uncle Stroke Other Asthma Lymphoma No family history of adverse response to anesthesia Denies family history of Ovarian cancer Prostate cancer Breast cancer Social History Smoking Status: Never smoker Tobacco Type: Cigarettes Second Hand Exposure: No; Hx Alcohol Use: No Hx Substance Use: No Preferred Language: Persian Communication Ability: Effective Visual Impairment: No Limitations Hearing Ability: Normal Manhole Stripper Required: No Beliefs That Will Affect Care: None marital status: Current Living Situation: Family Current Living Situation Comment: Lives with and daughter current occupational status: unemployed Other Information That Helps Us Care for You: No Feels Safe at Home: Yes Safety Concerns: Feels Safe At This Time Childhood Exposure to Second-Hand Smoke: Yes caffeine: No during the past year weight has: remained stable Dental Care, Regularly: Yes Physical Activity Frequency: 5-6 Times per Week Seatbelt Use: never Sunscreen Use: Yes Assistive Devices: Contacts and Glasses Review of Systems Constitutional: + fatigue and + weakness; no fever Eyes: + worsening vision; no diplopia and no eye pain Ear, Nose, Mouth, Throat: + dizziness; no ear pain, no tinnitus, no hearing loss, no snoring, no hoarseness and no dysphagia Respiratory: no cough and no dyspnea Cardiovascular: no chest pain, no palpitations and no lightheadedness Gastrointestinal: no abdominal pain, no nausea and no vomiting Genitourinary: no dysuria, no urinary frequency and no urinary incontinence Musculoskeletal: no back pain, no neck pain, no radicular pain, no joint pain and no myalgia Integumentary: no rash and no lesions Neurologic: + generalized weakness and + headache(s); no gait abnormality, no localized weakness, no tingling, no numbness, no tremor(s), no abnormal movements, no abnormal speech, no confusion and no memory loss Psychiatric: no depression, no irritability, no anxiety, no difficulty concentrating, no confusion and no hallucinations Endocrine: no fatigue and no flushing Hematologic / Lymphatic: no easy bleeding and no easy bruising Allergy / Immunological: no urticaria and no problem reported Exam (Neuro) Physical Exam: The patient is right-handed. The patient is awake, alert, and attentive. Speech is normal without any aphasia or dysarthria. The patient can name objects, repeat phrases, and has normal spontaneous speech. Mentation and thought processes are intact, with orientation to person, place and time, and normal fund of knowledge. Attention and concentration are normal. Mood and affect are normal and appropriate. General appearance and grooming are normal. Short and long-term memory are intact. The discs are sharp with positive venous pulsations bilaterally. There are no exudates, hemorrhages, or blood vessel changes seen. Pupils are 4 mm bilaterally and reactive to light. Extraocular eye muscles are intact without nystagmus. Visual acuity and visual kowalski seem normal grossly to confrontation. There are no deficits to sensation in the face in all 3 distributions of the fifth cranial nerve bilaterally. Corneal reflexes are positive bilaterally. Facial strength and symmetry was normal bilaterally. Hearing seems normal bilaterally. Palate moves well without asymmetry. There is normal sternocleidomastoid and trapezius (shoulder shrug) strength bilaterally. Tongue is midline with good strength bilaterally. Neck has a full range of motion without discomfort. There are no cervical bruits bilaterally. Cervical, thoracic, and lumbar spine are nontender to palpation. Gait was not tested but stance sitting up in bed is quite normal. With outstretched arms there is no drift. There are no resting, postural, or action tremors. There is no ataxia with finger to nose testing. There is good facility in the hands. No other abnormal involuntary movements are noted. Motor strength is 5/5 diffusely in the arms bilaterally including deltoids, biceps, triceps, brachioradialis, wrist flexors and extensors, slip filler, and intrinsic hand muscles. Motor strength is 5/5 diffusely in the legs bilaterally including hip flexors, quadriceps, hamstrings, gastrocnemius, tibialis anterior, tibialis posterior, and Peroneii muscles. Toe extensors are normal and there is good bulk in the extensor digitorum brevis muscles bilaterally. The limbs have good tone without rigidity or spasticity. There is no atrophy noted in the muscles. Muscle bulk is normal, there is no tenderness to pal pation, no myotonia to percussion, and no fasciculations seen. Sensory examination is intact to touch and pin throughout all 4 limbs diffusely. Reflexes are 2/4 in the biceps, triceps, brachioradialis, quadriceps, and Achilles tendons bilaterally. There is no clonus bilaterally. Toes are downgoing with plantar stimulation bilaterally. Peripheral pulses are present and of normal quality distally in all 4 limbs. There is no peripheral edema noted in the limbs. Results & Data ([facility]) Vital Signs (Past 12 Hours) Vital Signs Temp Pulse Pulse Resp BP Pulse Ox 07/05/21 10:11 88 07/05/21 07:52 36.6 C 88 84 14 125/81 94 07/05/21 06:00 70 20 104/61 93 07/05/21 04:00 72 20 143/96 H 99 07/05/21 01:20 22 144/93 H 95 PG Care Time/CCT Total # of Minutes Spent Total Time Spent with Patient: Total time spent is greater than 50% in coordination of care (as documented) at patient's floor/unit and/or counseling patient: Coding Level of Care Code 65260 Office/Outpt Visit, Est Diagnoses Visual disturbance H53.9 Headache R51.9 Feeling weak R53.1 Time Spent (min) 60
[2021-07-05 10:53] LABS: D Dimer 430 ug/L FEU (0-500)
--- NOTE | 2021-07-05 11:19 | Electrocardiogram Report ---
Test Reason : Blood Pressure : / mmHG Vent. Rate : 071 BPM Atrial Rate : 071 BPM P-R Int : 152 ms QRS Dur : 088 ms QT Int : 424 ms P-R-T Axes : 000 -09 020 degrees QTc Int : 461 ms Normal sinus rhythm with sinus arrhythmia Voltage criteria for left ventricular hypertrophy Nonspecific T wave abnormality Abnormal ECG When compared with ECG of 03-JUL-2021 23:08, QT has lengthened Nonspecific T wave abnormality is now evident in anterior leads Confirmed by Darryl Fernandez ([id number]) on 07/05/2021 11:19:06 AM Referred By: Angela Arevalo Confirmed By:Darryl Fernandez
[2021-07-05 11:45] LABS: Estimated Average Glucose 117 mg/dl; Hemoglobin A1C 5.7 % (4.5-5.6)
[2021-07-05 15:22] LABS: Appearance Urine Clear (Clear); Bilirubin Urine Negative (Negative); Blood Urine Negative (Negative); Color Urine Yellow; Glucose Urine UA Negative (Negative); Ketones Urine Negative (Negative); Leukocyte Esterase Urine Negative (Negative); Nitrite Urine Negative (Negative); Protein Urine Negative (Negative); Urobilinogen Urine Negative (Negative)
[2021-07-05 15:55] LABS: Amphetamines+Metham, Urine Neg (Neg); Barbiturates, Urine Neg (Neg); Benzodiazepine, Urine Neg (Neg); Cocaine, Urine Neg (Neg); MDMA (Ecstacy), Urine Neg (Neg); Methadone, Urine Neg (Neg); Opiate, Urine Neg (Neg); Phencyclidine, Urine Neg (Neg)
[2021-07-05] MEDS ORDERED: ALUMINUM/MAGNESIUM/SIMETH (MAALOX MAX) 30 ML UDC PO PRN (16:26)
--- NOTE | 2021-07-05 16:35 | Hospitalist Progress Note ---
Date of Service July 05, 2021 Assessment & Plan (1) COVID-19: Plan: on room air CXR no pneumonia monitor Lovenox for DVT prophylaxis (2) Headache: Plan: likely secondary to COVID 19 infection, HTN improving Brain MRI negative appreciate Neuro recommendations PRN Toradol (3) Chest pain: Plan: troponin negative x 3 EKG no signs of acute ischemia echo: no wall motion abnormalities, no pericardial effusion likely GERD from recent high dose Decadron increase Protonix to 40mg BID add Sucralfate QID PRN Maalox D dimer negative Doppler US: negative (4) Hypertension: Plan: likely from pain, recent Decadron use Amlodipine 2.5mg po daily started BP improving monitor closely Hypokalemia secondary to decreased p.o. intake - resolving hx inappropriate sinus tachycardia as per records - HR 90 asthma, stable fibromyalgia/ankylosing spondylitis as per records prediabetes as per patient, hemoglobin A1c of 5.6 last May, - A1c 5.7 past tobacco abuse DVT prophylaxis per Lovenox subcu Full code plan of care discussed with patient in detail and at length all questions answered she is understanding, agreeable, comfortable with the plan of care Admission and Anticipated Discharge Date Admission Date: July 04, 2021 Subjective ff up for COVID 19 infection, headache, chest pain, etc seen resting in bed, sleeping but easily awakened main complaint is feeling tired still has some chest discomfort no headache no dyspnea, cough no other symptoms Review of Systems Review of Systems: all noted and negative except for above Physical Exam Physical Exam: General- oriented x 3, not in distress, speaks in sentences with no effort or accessory muscle use Head- atraumatic Eyes- PERRL, EOMI, anicteric ENT- oropharynx clear Neck- supple, no JVD, no adenopathy, no thyromegaly; carotids +2/2, no bruits appreciated Lungs- clear to auscultation bilaterally, no rales/wheezes Heart- normal rate, regular rhythm; no murmur, no gallop, no rub appreciated Abdomen- normal bowel sounds, nondistended, soft, nontender, no masses or hepatosplenomegaly Extremities- no pretibial edema, no calf tenderness; peripheral pulses intact Neuro- alert, oriented x 3; CN 2-12 grossly intact; motor 5/5 bilaterally;sensation 100% on all extremities; no other gross focal neurologic deficits Skin- warm & dry Results & Data Results & Data ([facility]) Vital Signs (Past 12 Hours) Vital Signs Temp Pulse Pulse Resp BP BP Pulse Ox 07/05/21 15:36 90 07/05/21 14:59 36.7 C 82 18 130/80 99 07/05/21 13:21 84 07/05/21 12:58 36.8 C 86 20 123/81 96 07/05/21 11:00 94 H 18 150/103 H 97 07/05/21 10:11 88 07/05/21 07:52 36.6 C 88 84 14 125/81 94 07/05/21 06:00 70 20 104/61 93 all noted and reviewed including below
[2021-07-05] MEDS: SUCRALFATE 1 GM/10 ML UDC PO SCH ×2 (18:08→20:15)
[2021-07-05] MEDS: MAGNESIUM OXIDE 400 MG TAB PO SCH (20:15)
--- NOTE | 2021-07-05 20:33 | Electrocardiogram Report ---
Test Reason : Blood Pressure : / mmHG Vent. Rate : 088 BPM Atrial Rate : 088 BPM P-R Int : 150 ms QRS Dur : 074 ms QT Int : 414 ms P-R-T Axes : 008 -01 014 degrees QTc Int : 500 ms Normal sinus rhythm Minimal voltage criteria for LVH, may be normal variant Nonspecific T wave abnormality Abnormal ECG When compared with ECG of 04-JUL-2021 16:30, No significant change was found Confirmed by Darryl Fernandez ([id number]) on 07/05/2021 8:32:55 PM Referred By: Angela Arevalo Confirmed By:Darryl Fernandez
[2021-07-05] MEDS ORDERED: amLODIPine BESYLATE 5 MG TAB PO SCH (21:00)
[2021-07-06] MEDS: ENOXAPARIN INJ 40 MG/0.4 ML SYR SQ SCH (08:43)
[2021-07-06] MEDS: FLUTICASONE PROPIONATE NA SPR 16 GM BTL SCH (08:44)
[2021-07-06] MEDS: LORATADINE 10 MG TAB PO SCH (08:44)
[2021-07-06] MEDS: FAMOTIDINE 20 MG TAB PO SCH (08:44)
[2021-07-06] MEDS: SUCRALFATE 1 GM/10 ML UDC PO SCH ×4 (08:45→20:31)
[2021-07-06] MEDS: MULTIVITAMIN TAB PO SCH (08:45)
[2021-07-06] MEDS: PANTOprazole 40 MG TAB PO SCH (08:45)
--- NOTE | 2021-07-06 09:07 | Neurology Progress Note ---
Date of Service July 06, 2021 Assessment & Plan (1) Visual disturbance: (2) Headache: (3) Feeling weak: Plan: This patient has Covid-19 and has had worsening bifrontal tension-type headaches, blurry vision, and generalized sense of weakness over the last week or so. Currently she is stable with some decrease in her symptoms from admission. Currently she has no focal neurologic signs, meningeal signs, or encephalopathy. I suspect that the Covid-19 infection has produced her headaches, sense of weakness and fatigue, and blurry vision. MRI of the brain was unremarkable. Steroid use may have given her the symptoms as well. This patient has had a number of symptoms over the last several years which have defied specific diagnosis. She has had extensive neurologic testing at multiple places over the years without specific diagnosis. Recommendations: 1. treat tension headache with IV ketorolac. Avoid narcotics. Since the headache is not migrainous in nature I would avoid Triptans or other migraine medication. 2. Avoid steroids for now. 3. Increase activity as able and consider physical therapy. 4. I see no need for additional neurologic testing at this time. 5. Please contact me if I can be of further assistance on this case and Neurology can follow as an outpatient. Overall, I spent a total of 25 minutes with this case including review of records, direct evaluation the patient at bedside, and discussion of the case with the patient and RN at bedside, and Dr. Duong, including differential diagnosis and treatment options. Admission and Anticipated Discharge Date Admission Date: July 05, 2021 Subjective Patient complains of some nonspecific a teary or chest pain. She does not have shortness of breath and when she takes a deep breath it does not increase her pain. She has no complaint of blurry vision. She still has a [id number] bifrontal tension type headache. She has refused the tramadol offered to her by nursing. Nursing reports no other specific complaints or issues. She likes to "sleep" . Results & Data ([facility]) Vital Signs (Past 12 Hours) Vital Signs Temp Pulse Pulse Pulse Resp BP Pulse Ox 07/06/21 08:19 36.8 C 93 H 18 136/88 95 07/06/21 02:38 36.6 C 90 16 103/72 97 07/06/21 02:25 92 H 07/06/21 01:01 90 07/05/21 23:39 36.7 C 99 H 18 120/80 97 07/05/21 22:20 94 H Pulse Ox 07/06/21 08:19 07/06/21 02:38 07/06/21 02:25 07/06/21 01:01 97 07/05/21 23:39 07/05/21 22:20 94 Exam (Neuro) Physical Exam: She is awake and alert. Speech is without aphasia or dysarthria. Mood and affect are normal appropriate. Thought processes are intact to conversation. Extraocular muscles are intact without nystagmus. There are no abnormal involuntary movements. There is no facial droop. Coordination seems normal in the arms and strength is symmetrical limbs. PG Care Time/CCT Total # of Minutes Spent Total Time Spent with Patient: Total time spent is greater than 50% in coordination of care (as documented) at patient's floor/unit and/or counseling patient: Coding Level of Care Code 15303 Subseq Hosp Care Lvl 2 Diagnoses Visual disturbance H53.9 Headache R51.9 Feeling weak R53.1 Time Spent (min) 25
[2021-07-06] MEDS ORDERED: KETOROLAC TROMETHAMINE 15 MG/ML VIAL IV PRN (13:10)
[2021-07-06] MEDS ORDERED: PROMETHAZINE HCL 12.5 MG in SODIUM CHLORIDE 0.9% 50 ML IV STA (15:34)
[2021-07-06] MEDS ORDERED: ALUMINUM/MAGNESIUM SUSP 1 ML, diphenhydrAMINE Syrup 2.5 MG, LIDOCAINE VISCOUS 2% SOLN 1 ML PO ONE (15:39)
--- NOTE | 2021-07-06 16:49 | Hospitalist Progress Note ---
Date of Service July 06, 2021 Assessment & Plan (1) COVID-19: Plan: on room air CXR no pneumonia monitor Lovenox for DVT prophylaxis (2) Headache: Plan: likely secondary to COVID 19 infection, HTN mostly resolved Brain MRI negative appreciate Neuro recommendations PRN Toradol (3) Chest pain: Plan: troponin negative x 3 EKG no signs of acute ischemia echo: no wall motion abnormalities, no pericardial effusion likely GERD from recent high dose Decadron increased Protonix to 40mg BID, change to IV Sucralfate QID magic swizzle one dose PRN Maalox (+) diarrhea clear liquid diet stool for C diff, etc (+) history of gastroduodenitis from EGD 2017 flare up from high dose Decadron? NPO post midnight consult GI D dimer negative Doppler US: negative (4) Hypertension: Plan: likely from pain, recent Decadron use Amlodipine 2.5mg po daily started BP now at goal on the lower side d/c Amlodipine monitor Hypokalemia secondary to decreased p.o. intake - resolved hx inappropriate sinus tachycardia as per records - HR 90 asthma, stable fibromyalgia/ankylosing spondylitis as per records prediabetes as per patient, hemoglobin A1c of 5.6 last May, - A1c 5.7 past tobacco abuse DVT prophylaxis per Lovenox subcu Full code plan of care discussed with patient in detail and at length all questions answered she is understanding, agreeable, comfortable with the plan of care Admission and Anticipated Discharge Date Admission Date: July 05, 2021 Subjective ff up for chest pain, headache, COVID 19 infection, etc seen resting in bed, comfortable not in distress states she feels slightly better overall no dyspnea, has intermittent dry cough no fever/chills still has persistent epigastric/lower sternal discomfort associated with nausea also reports diarrhea- non bloody headache mostly resolved no other symptoms Review of Systems Review of Systems: all noted and negative except for above Physical Exam Physical Exam: General- oriented x 3, not in distress, speaks in sentences with no effort or accessory muscle use Eyes- anicteric Neck- no JVD Lungs- clear breath sounds bilaterally, no rales/wheezes Heart- normal rate, regular rhythm; no murmurs Abdomen- normal bowel sounds, nondistended, soft, mild epigastric tenderness Extremities- no pretibial edema, no calf tenderness Neuro- alert, oriented x 3; no gross focal neurologic deficits Skin- warm & dry Results & Data Results & Data ([facility]) Vital Signs (Past 12 Hours) Vital Signs Temp Pulse Resp BP BP Pulse Ox 07/06/21 15:42 37.0 C 88 18 129/89 95 07/06/21 11:08 36.8 C 84 18 106/72 97 07/06/21 08:19 36.8 C 93 H 18 136/88 95
[2021-07-06 17:54] LABS: Calcium 8.7 mg/dl (8.5-10.1); Creatinine Clr Calc Pharmacy 165.4 ml/min; Est GFR (African American) 139.6 ml/min; Est GFR (Non-African American) 120.4 ml/min; Potassium 3.4 mmol/L (3.5-5.1)
[2021-07-06] MEDS: PANTOprazole 40 MG in SYRINGE 0 ML IV SCH (20:31)
[2021-07-06] MEDS: MAGNESIUM OXIDE 400 MG TAB PO SCH (20:31)
[2021-07-06] MEDS: MELATONIN 3 MG TAB PO PRN (20:35)
[2021-07-06] MEDS ORDERED: POTASSIUM CHLORIDE CRTAB 20 MEQ TABCR PO STA (22:41)
[2021-07-07 06:57] LABS: BUN Creatinine Ratio 20.7 (10-20); Calcium 8.6 mg/dl (8.5-10.1); Creatinine Clr Calc Pharmacy 163.3 ml/min; Est GFR (African American) 140.4 ml/min; Est GFR (Non-African American) 121.1 ml/min
--- NOTE | 2021-07-07 08:24 | Gastrointestinal Consultation ---
Date of Consultation July 07, 2021 Assessment & Plan (1) COVID-19: 35 year old female admitted w/ COVID-19 infection, TURK, chest pressure - GI asked to evaluate for chest pressure. She has had negative EKG, ECHO and troponin. She has been on high dose steroids, and started on adequate treatment for GERD w/ IV PPI, PO pepcid and PO carafate. No current plan for EGD during admission Recommend OP EGD in about 1 month Consider dedicated chest imaging given COVID-19 infection Continue IV PPI for a total of 72 hours then can convert to PO PPI BID until OP EGD Continue PO Pepcid until OP EGD Continue PO Carafate x 1 month Recall as needed. Thank you for allowing us to participate in the care of this patient. Please call with any acute changes, questions or concerns. Please see addendum below with additional recommendation from my supervising physician. Supervising Physician Co-Signing Physician Notes I have discussed the patient's management with the advanced practitioner. Please refer to the nurse practitioner's note for the documented findings and plan of care. Please complete her cardiopulmonary work up for her chest pain prior to embarking of GI etiology. OP EGD. PPI. Recall GI if needed History of Present Illness Reason for Consultation: epigastric pain Requesting Physician: Ad Attending Physician: Joseph Duong MD History of Present Illness 35 year old female admitted w/ COVID, headache and chest pain (negative troponin, EKG negative, ECHO WNL) who GI was asked to evaluate for chest pressure. Chart review completed. Patient was not evaluated as this would not change in planning process. Pt has been been high dose steroids since admission due to COVID-19 infection. Reports is epigastric pain/pressure w/ nausea. No vomiting reported. There is report of cough but no SOB. Venous doppler 2021: : There is no sonographic evidence of deep venous thrombosis identified in the right or left lower extremity. Chest XR 2021: Interval development of possible mild left midlung opacity. An infectious process cannot be excluded. Chest XR 2021: No acute cardiopulmonary findings. Allergies Allergy/AdvReac Type Severity Reaction Status Date / Time amoxicillin Allergy Severe ANAPHYLAXIS Verified 07/04/21 01:04 clavulanic acid Allergy Severe ANAPHYLAXIS Verified 07/04/21 01:04 Iodinated Contrast Media Allergy Severe Hives, Verified 07/04/21 22:45 tongue swelling doxycycline Allergy Intermediate Rash Verified 07/04/21 01:04 sulfamethoxazole Allergy Intermediate tongue Verified 07/04/21 01:04 [From Bactrim] swelling trimethoprim [From Bactrim] Allergy Intermediate tongue Verified 07/04/21 01:04 swelling metronidazole Allergy Mild rash Verified 07/04/21 01:04 casein Allergy Unknown per Verified 07/04/21 01:04 allergy testing coffee (Coffea arabica) Allergy Unknown per Verified 07/04/21 01:04 allergy testing Penicillins Allergy Unknown per Verified 06/24/21 23:49 allergy testing egg Allergy Hives Verified 07/05/21 12:33 tuna oil Allergy Hives Verified 07/05/21 13:54 Home Medications Medication Instructions Recorded Confirmed Type melatonin 1 mg tablet 1 mg PO HS 03/27/18 07/04/21 History multivitamin 1 tab PO QAM 03/27/18 07/04/21 History cholecalciferol (vitamin D3) 50 2,000 unit PO QAM 04/19/19 07/04/21 History mcg (2,000 unit) capsule (Vitamin D3) fluticasone propionate 50 1 sprays INTNAS DAILY 14 Days #9.9 04/28/19 07/04/21 Rx mcg/actuation nasal ml spray,suspension (Allergy Relief (fluticasone)) magnesium oxide 250 mg PO HS 05/19/19 07/04/21 History loratadine 10 mg tablet (Claritin) 10 mg PO DAILY 03/21/20 07/04/21 History meclizine 25 mg tablet 25 mg PO TID PRN #10 tab 12/05/20 07/04/21 Rx famotidine 20 mg tablet (Pepcid) 20 mg PO DAILY 06/24/21 07/04/21 History benzonatate 100 mg capsule 100 mg PO TID PRN #30 cap 07/04/21 07/04/21 Rx dexamethasone 6 mg tablet 12 mg PO DAILY 07/04/21 07/04/21 History pantoprazole 40 mg tablet,delayed 40 mg PO DAILY 07/04/21 07/04/21 History release rizatriptan 5 mg tablet 5 mg PO UD PRN 07/04/21 07/04/21 History Patient History Medical History (Updated 07/07/21 @ 00:03 by Background Daemon) Abnormal EEG Ankylosing spondylitis Anxiety and depression Chest pain Degenerative disc disease DVT (deep venous thrombosis) Eustachian tube dysfunction GERD (gastroesophageal reflux disease) Heart palpitations High cholesterol History of bradycardia History of bulimia History of pre-eclampsia Insomnia Iron deficiency anemia Migraine Morbid obesity with BMI of 40.0-44.9, adult Seasonal allergies Thoracic disc disease Vitamin B12 deficiency Vitamin D deficiency Surgical History History of cardiac cath 06/2015 @ [facility] [place]--d/t chest pain, normal no stents History of cholecystectomy History of esophagogastroduodenoscopy (EGD) History of wisdom tooth extraction Family History Father Hypertension Mother Diabetes Grandfather (Maternal) Diabetes Coronary heart disease Myocardial infarction Congestive heart failure Colorectal cancer Grandfather (Paternal) Diabetes Coronary heart disease Myocardial infarction, Onset Age: 50 Grandmother (Paternal) Pulmonary emphysema Sick sinus syndrome Diabetes Pacemaker Grandmother (Maternal) Family history of diabetes mellitus Aunt Pulmonary emphysema Family/Other Myocardial infarction, Onset Age: 37 Coronary heart disease Uncle Stroke Other Asthma Lymphoma No family history of adverse response to anesthesia Denies family history of Ovarian cancer Prostate cancer Breast cancer Social History Smoking Status: Never smoker Tobacco Type: Cigarettes Second Hand Exposure: No; Hx Alcohol Use: No Hx Substance Use: No Preferred Language: Kazakh Communication Ability: Effective Visual Impairment: No Limitations Hearing Ability: Normal 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 Beliefs That Will Affect Care: None marital status: Current Living Situation: Family Current Living Situation Comment: Lives with and daughter current occupational status: unemployed Other Information That Helps Us Care for You: No Feels Safe at Home: Yes Safety Concerns: Feels Safe At This Time Childhood Exposure to Second-Hand Smoke: Yes caffeine: No during the past year weight has: remained stable Dental Care, Regularly: Yes Physical Activity Frequency: 5-6 Times per Week Seatbelt Use: never Sunscreen Use: Yes Assistive Devices: None Results & Data ([facility]) Vital Signs (Past 12 Hours) Vital Signs Temp Pulse Pulse Resp BP Pulse Ox 07/07/21 03:22 37.3 C 107 H 18 111/76 95 07/07/21 00:25 93 H 07/06/21 23:56 36.8 C 100 H 18 119/88 95 Laboratory Results 07/07/21 07/06/21 Range/Units 05:29 17:00 Sodium 138 136 (136-145) mmol/L Potassium 4.0 3.4 L (3.5-5.1) mmol/L Chloride 108 H 105 (98-107) mmol/L Carbon Dioxide 21 21 (21-32) mmol/L Anion Gap 9 10 (3-11) BUN 12 13 (6-23) mg/dl Creatinine 0.58 L 0.59 L (0.6-1.2) mg/dl Est Cr Clr Drug Dosing 163.3 165.4 ml/min Est GFR ( Amer) 140.4 139.6 ml/min Est GFR (Non-Af Amer) 121.1 120.4 ml/min BUN/Creatinine Ratio 20.7 H 22.0 H (10-20) Glucose 109 H 92 (70-99(Fasting)) mg/dl Calcium 8.6 8.7 (8.5-10.1) mg/dl
[2021-07-07] MEDS: SODIUM CHLORIDE 0.9% 1000ML 1,000 ML IV SCH ×2 (09:40→22:56)
[2021-07-07] MEDS: PANTOprazole 40 MG in SYRINGE 0 ML IV SCH ×2 (09:41→20:44)
[2021-07-07] MEDS: ENOXAPARIN INJ 40 MG/0.4 ML SYR SQ SCH (09:42)
[2021-07-07] MEDS: MULTIVITAMIN TAB PO SCH (09:43)
[2021-07-07] MEDS: LORATADINE 10 MG TAB PO SCH ×2 (09:43→17:14)
[2021-07-07] MEDS: FLUTICASONE PROPIONATE NA SPR 16 GM BTL SCH (09:44)
[2021-07-07] MEDS: FAMOTIDINE 20 MG TAB PO SCH (09:44)
[2021-07-07] MEDS: SUCRALFATE 1 GM/10 ML UDC PO SCH ×4 (09:44→20:44)
--- NOTE | 2021-07-07 16:26 | CT Scan Report ---
CT SCAN OF THE CHEST, ABDOMEN, AND PELVIS WITHOUT IV CONTRAST CLINICAL HISTORY: Atypical chest pain. Epigastric abdominal pain. COMPARISON STUDY: Chest CT dated 03/27/2018. Abdominal CT dated 05/17/2018. TECHNIQUE: Unenhanced CT scan of the chest, abdomen, and pelvis was performed from the thoracic inlet to the proximal femora. Images are reviewed in the axial, sagittal, and coronal planes. IV contrast was not administered for this examination. Note that the examination is suboptimal without oral and I V contrast. A dose lowering technique was utilized adhering to the principles of ALARA. CT DOSE: 2558.98 mGy.cm FINDINGS: CHEST: Thyroid: Imaged portions of the thyroid gland are normal in size and attenuation. Thoracic aorta: The thoracic aorta is normal in caliber and demonstrates standard 3-vessel arch anato my. Heart: The heart is normal in size and without pericardial effusion. Lungs and pleural spaces: There is mild multifocal groundglass consolidation seen throughout both nevin gs. No pleural effusion is identified. The trachea and central airways are clear. There is no pneumot horax. A 3 mm low suspicion pleural-based nodule is seen in the anterior left upper lobe on image #92 . A 4 mm lung lower lobe pulmonary nodule is seen on image #130 and a 2 mm pleural-based nodule in th e right middle lobe is seen on image #132. These are unchanged from 2018 and of doubtful significance . Mediastinum: There is no mediastinal lymphadenopathy. Rachell: Not well assessed without IV contrast. Axillae: There is no axillary lymphadenopathy. Bony thorax: No lytic or blastic lesions are identified. Posterior disc osteophyte complexes are seen T10-T11 and T11-T12. ABDOMEN AND PELVIS: Liver: The unenhanced liver is normal in size, contour, and attenuation. There is no intra- or extrah epatic biliary ductal dilatation. Gallbladder: Surgically absent noting clips in the gallbladder fossa. Spleen: Normal in size and attenuation. Pancreas: Unremarkable. Adrenal glands: Unremarkable. Kidneys: The unenhanced kidneys are normal in size and without hydronephrosis. No renal calculi are i dentified. There is no evidence of contour deforming mass lesion. Abdominal vasculature: The abdominal aorta is normal in course and caliber. Bowel: There are scattered colonic diverticula without CT evidence of acute diverticulitis. No bowel obstruction is seen. Submucosal fat deposition is noted throughout the colon. The appendix is well-v isualized and normal. Peritoneum: There is no intraperitoneal free air or abdominal ascites. Lymphadenopathy: None. Pelvic viscera: The bladder, uterus, and adnexa are normal as visualized noting bilateral ovarian fol licles. Skeletal structures: No lytic or blastic lesions are seen. There is a left-sided pars defect at L5. P osterior disc bulges are noted at L4-L5 and L5-S1. IMPRESSION: 1. Mild multifocal groundglass consolidation is seen throughout both lungs, typical for an infectious /inflammatory pneumonitis. Clinical correlation will be required. 2. No pleural effusion is seen. 3. No acute infectious or inflammatory findings are identified in the abdomen or pelvis. 4. Additional findings as above. ACT 112: Negative or not required by law. Electronically signed by: Levar Cade M.D. 07/07/2021 4:25 PM
--- NOTE | 2021-07-07 16:49 | Hospitalist Progress Note ---
Date of Service July 07, 2021 Assessment & Plan (1) COVID-19: Plan: remains stabel on room air CXR no pneumonia monitor Lovenox for DVT prophylaxis (2) Headache: Plan: likely secondary to COVID 19 infection, HTN mostly resolved Brain MRI negative appreciate Neuro recommendations PRN Toradol (+) light headedness with tinnitus and decreased hearing - possible Meniere's - trial of HCTZ when patient hydration status improves (3) Chest pain: Plan: troponin negative x 3 EKG no signs of acute ischemia echo: no wall motion abnormalities, no pericardial effusion likely GERD from recent high dose Decadron increased Protonix to 40mg BID, change to IV Sucralfate QID magic swizzle one dose PRN Maalox (+) diarrhea clear liquid diet stool for C diff, etc (+) history of gastroduodenitis from EGD 2016 flare up from high dose Decadron? NPO post midnight consult GI D dimer negative Doppler US: negative 07/07 no EGD per GI continue Protonix IV, Sucralfate CT chest and abdomen ordered (4) Hypertension: Plan: likely from pain, recent Decadron use Amlodipine 2.5mg po daily started BP now at goal on the lower side d/c Amlodipine -- HTN resolved Hypokalemia secondary to decreased p.o. intake - resolved hx inappropriate sinus tachycardia as per records - HR 90 asthma, stable fibromyalgia/ankylosing spondylitis as per records prediabetes as per patient, hemoglobin A1c of 5.6 last May, - A1c 5.7 past tobacco abuse DVT prophylaxis per Lovenox subcu Full code plan of care discussed with patient in detail and at length all questions answered she is understanding, agreeable, comfortable with the plan of care Admission and Anticipated Discharge Date Admission Date: July 05, 2021 Subjective ff up for COVID 19 infection, chest pain, etc seen resting in bed, sitting up not in distress still has persistent epigastric discomfort no shortness of breath diarrhea resolved, tolerated grilled cheese sandwich well no headache, reports lightheadedness, with tinnitus and some decreased hearing no other symptoms Review of Systems Review of Systems: all noted and negative except for above Physical Exam Physical Exam: General- oriented x 3, not in distress, speaks in sentences with no effort or accessory muscle use Eyes- anicteric Neck- no JVD Lungs- clear breath sounds bilaterally no crackles Heart- normal rate, regular rhythm; no murmurs Abdomen- normal bowel sounds, nondistended, soft mild epigastric tenderness Extremities- no pretibial edema, no calf tenderness Neuro- alert, oriented x 3; no gross focal neurologic deficits Skin- warm & dry Results & Data Results & Data ([facility]) Vital Signs (Past 12 Hours) Vital Signs Temp Pulse Pulse Resp BP Pulse Ox 07/07/21 15:39 36.4 C L 97 H 18 132/85 94 07/07/21 11:09 36.7 C 75 19 111/68 96 07/07/21 08:00 92 H all noted and reviewed including below
[2021-07-07] MEDS: MELATONIN 3 MG TAB PO PRN (20:44)
[2021-07-07] MEDS: MAGNESIUM OXIDE 400 MG TAB PO SCH (20:44)
[2021-07-07] MEDS: MECLIZINE HCL 25 MG TAB PO PRN (20:44)
[2021-07-08 06:54] LABS: BUN Creatinine Ratio 24.2 (10-20); Calcium 8.4 mg/dl (8.5-10.1); Creatinine Clr Calc Pharmacy 152.8 ml/min; Est GFR (African American) 137.3 ml/min; Est GFR (Non-African American) 118.5 ml/min; Potassium 3.5 mmol/L (3.5-5.1)
[2021-07-08] MEDS: SUCRALFATE 1 GM/10 ML UDC PO SCH ×4 (08:17→20:10)
[2021-07-08] MEDS: ENOXAPARIN INJ 40 MG/0.4 ML SYR SQ SCH (08:17)
[2021-07-08] MEDS: PANTOprazole 40 MG in SYRINGE 0 ML IV SCH ×2 (08:18→20:09)
[2021-07-08] MEDS: MULTIVITAMIN TAB PO SCH (08:19)
[2021-07-08] MEDS: LORATADINE 10 MG TAB PO SCH (08:19)
[2021-07-08] MEDS: FLUTICASONE PROPIONATE NA SPR 16 GM BTL SCH (08:19)
[2021-07-08] MEDS: FAMOTIDINE 20 MG TAB PO SCH (08:19)
[2021-07-08] MEDS: SODIUM CHLORIDE 0.9% 1000ML 1,000 ML IV SCH ×2 (10:03→18:12)
--- NOTE | 2021-07-08 15:00 | Hospitalist Progress Note ---
Date of Service July 08, 2021 Assessment & Plan (1) COVID-19: Plan: Patient continues to remain stable Currently on room air, with good O2 saturation CXR no pneumonia monitor Lovenox for DVT prophylaxis (2) Headache: Plan: likely secondary to COVID 19 infection, HTN Resolved Brain MRI negative appreciate Neuro recommendations PRN Toradol (+) light headedness with tinnitus and decreased hearing - possible Meniere's - trial of HCTZ when patient hydration status improves -Lightheadedness improving today (3) Chest pain: Plan: troponin negative x 3 EKG no signs of acute ischemia echo: no wall motion abnormalities, no pericardial effusion likely GERD from recent high dose Decadron increased Protonix to 40mg BID, change to IV Sucralfate QID magic swizzle one dose PRN Maalox (+) diarrhea clear liquid diet stool for C diff, etc (+) history of gastroduodenitis from EGD 2016 flare up from high dose Decadron? NPO post midnight consult GI D dimer negative Doppler US: negative 07/07 no EGD per GI continue Protonix IV, Sucralfate CT chest and abdomen ordered 07/08 CT chest and abdomen: Unrevealing Epigastric pain improving Continue IV Protonix, sucralfate, as needed Magic swizzle IV NSS increased to 125 cc/h (4) Hypertension: Plan: likely from pain, recent Decadron use Amlodipine 2.5mg po daily started BP now at goal on the lower side d/c Amlodipine -- HTN resolved -- BP on the lower side, likely secondary to dehydration, IV NSS increased to 125 cc/h Hypokalemia secondary to decreased p.o. intake - resolved hx inappropriate sinus tachycardia as per records - HR 82 asthma, stable fibromyalgia/ankylosing spondylitis as per records prediabetes as per patient, hemoglobin A1c of 5.6 last May, - A1c 5.7 past tobacco abuse DVT prophylaxis per Lovenox subcu Full code plan of care discussed with patient in detail and at length all questions answered she is understanding, agreeable, comfortable with the plan of care Admission and Anticipated Discharge Date Admission Date: July 05, 2021 Subjective Follow-up for COVID-19 infection, headache, chest pain, etc. Seen resting in bed, comfortable, not in distress States she feels very sleepy, tired today Lightheadedness improving Epigastric/chest discomfort improving, tolerating Solid diet well Headache resolved No shortness of breath, cough, fevers or chills No other symptoms Review of Systems Review of Systems: all noted and negative except for above Physical Exam Physical Exam: General- oriented x 3, not in distress, speaks in sentences with no effort or accessory muscle use Eyes- anicteric Neck- no JVD Lungs- clear breath sounds, no crackles, no wheezing bilaterally Heart- normal rate, regular rhythm; no murmurs Abdomen- normal bowel sounds, nondistended, soft, nontender Extremities- no pretibial edema, no calf tenderness Neuro- alert, oriented x 3; no gross focal neurologic deficits Skin- warm & dry Results & Data Results & Data ([facility]) Vital Signs (Past 12 Hours) Vital Signs Temp Pulse Pulse Resp BP BP Pulse Ox 07/08/21 12:05 82 07/08/21 11:02 36.7 C 71 20 109/75 99 07/08/21 07:35 36.5 C 82 20 99/68 L 97 07/08/21 04:01 89 07/08/21 04:00 36.9 C 85 20 97/66 L 99 all noted and reviewed including below
[2021-07-08 16:16] LABS: Adenovirus F 40/41 PCR Not Detected (NotDetected); Astrovirus PCR Not Detected (NotDetected); Campylobacter PCR Not Detected (NotDetected); Clostridium diff Toxin A/B PCR Not Detected (NotDetected); Cryptosporidium PCR Not Detected (NotDetected); Cyclospora cayetanensis PCR Not Detected (NotDetected); Entamoeba histolytica PCR Not Detected (NotDetected); Enteroaggregative E.coli(EAEC) Not Detected (NotDetected); Enteropathogenic E.coli (EPEC) Not Detected (NotDetected); Enterotoxigenic E.coli (ETEC) Not Detected (NotDetected); Giardia lamblia PCR Not Detected (NotDetected); Norovirus GI/GII PCR Not Detected (NotDetected); Plesiomonas shigelloides PCR Not Detected (NotDetected); Rotavirus A PCR Not Detected (NotDetected); Salmonella PCR Not Detected (NotDetected); Sapovirus PCR Not Detected (NotDetected); Shiga-like Toxin E.coli (STEC) Not Detected (NotDetected); Shigella/Enteroinvasive E.coli Not Detected (NotDetected); Vibrio cholerae PCR Not Detected (NotDetected); Vibrio species PCR Not Detected (NotDetected); Yersinia enterocolitica PCR Not Detected (NotDetected)
[2021-07-08] MEDS: MAGNESIUM OXIDE 400 MG TAB PO SCH (20:09)
[2021-07-08] MEDS: MECLIZINE HCL 25 MG TAB PO PRN (20:09)
[2021-07-08] MEDS: MELATONIN 3 MG TAB PO PRN (20:09)
[2021-07-09] MEDS: SODIUM CHLORIDE 0.9% 1000ML 1,000 ML IV SCH ×3 (02:14→17:30)
[2021-07-09 09:02] LABS: Basophils # (auto) 0.01 K/uL (0-0.2); Basophils % (auto) 0.1 %; Eosinophils % (auto) 3.1 %; Hematocrit (blood only) 35.2 % (37-47); Hemoglobin 11.1 g/dL (12.0-16.0); Immature Granulocytes # (auto) 0.06 K/uL (0.00-0.02); Immature Granulocytes % (auto) 0.6 %; Lymphocytes # (auto) 3.02 K/uL (1.2-3.4); Lymphocytes % (auto) 30.9 %; Mean Corpuscular Hgb Conc 31.5 g/dL (32-36); Mean Corpuscular Volume 88.9 fL (80-100); Mean Platelet Volume 9.6 fL (7.4-10.4); Monocytes # (auto) 0.67 K/uL (0.11-0.59); Monocytes % (auto) 6.9 %; Neutrophils # (auto) 5.72 K/uL (1.4-6.5); Neutrophils % (auto) 58.4 %; Platelet Count 242 K/uL (130-400); RDW Coefficient of Variation 15.2 % (11.5-14.5); Red Blood Count 3.96 M/uL (4.2-5.4); White Blood Count 9.78 K/uL (4.8-10.8)
[2021-07-09 09:31] LABS: BUN Creatinine Ratio 11.7 (10-20); Calcium 7.9 mg/dl (8.5-10.1); Creatinine Clr Calc Pharmacy 160.1 ml/min; Est GFR (African American) 138.8 ml/min; Est GFR (Non-African American) 119.8 ml/min; Magnesium 1.6 mg/dl (1.7-2.4); Potassium 3.2 mmol/L (3.5-5.1)
[2021-07-09] MEDS: PANTOprazole 40 MG in SYRINGE 0 ML IV SCH ×2 (09:55→21:00)
[2021-07-09] MEDS: SUCRALFATE 1 GM/10 ML UDC PO SCH ×4 (09:56→21:00)
[2021-07-09] MEDS: ENOXAPARIN INJ 40 MG/0.4 ML SYR SQ SCH (09:56)
[2021-07-09] MEDS: FAMOTIDINE 20 MG TAB PO SCH (09:57)
[2021-07-09] MEDS: LORATADINE 10 MG TAB PO SCH (09:57)
[2021-07-09] MEDS: MULTIVITAMIN TAB PO SCH (09:58)
[2021-07-09] MEDS: FLUTICASONE PROPIONATE NA SPR 16 GM BTL SCH (09:58)
[2021-07-09] MEDS: MECLIZINE HCL 25 MG TAB PO PRN (11:36)
[2021-07-09] MEDS: POTASSIUM CHLORIDE CRTAB 20 MEQ TABCR PO SCH ×2 (11:36→21:00)
[2021-07-09] MEDS: MAGNESIUM OXIDE 400 MG TAB PO SCH ×2 (11:38→21:00)
--- NOTE | 2021-07-09 12:17 | Psychiatric Consultation ---
Date of Consultation July 09, 2021 Impression / Recommendations Impression This is a 35 yo with no significant psychiatric history, chronic dizziness/lightheadedness over the last year admitted medically for COVID. Diagnostically consistent with adjustment disorder with anxiety versus anxiety 2/2 medical condition. Acute risk of self-harm is low given denial of SI. They are not interested in nor do they meet criteria for inpatient psychiatric hospitalization at this time. She is not interested in psychiatric medications but would benefit from therapy which she is agreeable to trying. Agree with avoiding psychiatric medications given her elevated QTc. -psychiatric liason has provided resources for local mental health services and will attempt to establish outpatient therapy as well as providing tools for distraction and coping while in the hospital -could consider physical therapy to help build confidence with dizziness and lightheadedness and find ways to improve balance and movement (1) Adjustment disorder with anxious mood: see impression above Risk Factors Assessment Hopelessness: No Telehealth Telehealth Options: Telephone only For the duration of the visit, provider was performing the assessment from: The same facility as the patient After establishing a telemedicine visit, patient was: Patient was verified with two unique identifiers, Patient/authorized rep acknowledged consent and understanding and Gave permission to continue telehealth session Total Time Spent (minutes): 20 Psych History Identifying Data 35 yo woman admitted medically for COVID. Psychiatry was consulted by patient request for worsening anxiety. Chief Complaint "I want to make sure I'm not self-limiting because I'm afraid of it". History of Present Illness Verna describes worsened anxiety in the context of her COVID infection with symptoms of new weakness as well as wondering if anxiety could be contributing to her chronic dizziness, pressure behind eyes/ears and lightheadedness. She notes she has been experiencing the dizziness and lightheadedness for the last year which has limited her ability to drive and has made her housebound and has caused her to need help to even shower. She has fallen and skimmed her knees when showering or going up stairs alone. She's noticed she's been having more intrusive thoughts like "this is going to kill me" because her symptoms aren't getting better. She denies any significant depressive symptoms though notes she can days with lower mood due to the chronic lightheadedness symptoms and the interference with her life. She does not feel that anxiety is causing her symptoms but rather the symptoms have lead to increased anxiety. Reviewed that she has no SI, PHQ-9 score of 9 with score of 0 for Q9, and remains future- oriented and motivated to get better. She's interested in outpatient therapy. Has had past bad experiences with SSRIs and SNRIs causing panic attacks. Further collateral from psych liason notes: "Rounded on patient to assess for psych needs. Patient continues to report interest in therapy services. She has had an increase in anxiety related to physical/medical concerns. She denies depressive symptoms (PHQ-9 = 9), reports sleep is broken d/t dizziness and lethargy/daytime sleepiness. Appetite varies related to vertigo and nausea. She is future oriented and looks forward to discharge to see her and daughter. She was given a [facility] mental health resource book. Liaison will contact [facility] in [place] on Saturday to inquire about intake. Patient is not interested in medication at this time. She does report diversional activities would be helpful. Liaison will drop off word searches/crossword puzzles. Psychiatrist to call patient this afternoon, patient verbalized understanding." "Pleasant and cooperative, expressed frustration regarding her ongoing health issues prior to diagnosis of covid. She reports that she has been experiencing dizziness, and lightheadedness and has not been able to see specialists due to the pandemic. She has been unable to drive and has been feeling isolated. She is questioning if some of her symptoms are related to anxiety. She denies any mental health history. She denies any depression or past SA. She did state that she feels that she has difficulty "shutting" her thoughts off. She is interested in outpatient services for counseling, and would like some tools to help with her anxiety." Past Psychiatric History Previous Psych History: none Outpatient Services: saw a therapist last year briefly but then they retired Previous Psych Admissions: n/a History of Previous Suicide Attempt: No Past Medication Trials: has tried SSRIs in the past which caused panic attacks; also tried Cymblata and caused panic attacks all tried due to increased anxiety Allergies Allergy/AdvReac Type Severity Reaction Status Date / Time amoxicillin Allergy Severe ANAPHYLAXIS Verified 07/04/21 01:04 clavulanic acid Allergy Severe ANAPHYLAXIS Verified 07/04/21 01:04 Iodinated Contrast Media Allergy Severe Hives, Verified 07/04/21 22:45 tongue swelling doxycycline Allergy Intermediate Rash Verified 07/04/21 01:04 sulfamethoxazole Allergy Intermediate tongue Verified 07/04/21 01:04 [From Bactrim] swelling trimethoprim [From Bactrim] Allergy Intermediate tongue Verified 07/04/21 01:04 swelling metronidazole Allergy Mild rash Verified 07/04/21 01:04 casein Allergy Unknown per Verified 07/04/21 01:04 allergy testing coffee (Coffea arabica) Allergy Unknown per Verified 07/04/21 01:04 allergy testing Penicillins Allergy Unknown per Verified 06/24/21 23:49 allergy testing egg Allergy Hives Verified 07/05/21 12:33 fish derived Allergy Hives Verified 07/08/21 12:28 Home Medications Medication Instructions Recorded Confirmed Type melatonin 1 mg tablet 1 mg PO HS 03/27/18 07/04/21 History multivitamin 1 tab PO QAM 03/27/18 07/04/21 History cholecalciferol (vitamin D3) 50 2,000 unit PO QAM 04/19/19 07/04/21 History mcg (2,000 unit) capsule (Vitamin D3) fluticasone propionate 50 1 sprays INTNAS DAILY 14 Days #9.9 04/28/19 07/04/21 Rx mcg/actuation nasal ml spray,suspension (Allergy Relief (fluticasone)) magnesium oxide 250 mg PO HS 05/19/19 07/04/21 History loratadine 10 mg tablet (Claritin) 10 mg PO DAILY 03/21/20 07/04/21 History meclizine 25 mg tablet 25 mg PO TID PRN #10 tab 12/05/20 07/04/21 Rx famotidine 20 mg tablet (Pepcid) 20 mg PO DAILY 06/24/21 07/04/21 History benzonatate 100 mg capsule 100 mg PO TID PRN #30 cap 07/04/21 07/04/21 Rx dexamethasone 6 mg tablet 12 mg PO DAILY 07/04/21 07/04/21 History pantoprazole 40 mg tablet,delayed 40 mg PO DAILY 07/04/21 07/04/21 History release rizatriptan 5 mg tablet 5 mg PO UD PRN 07/04/21 07/04/21 History Personal History Marital Status: Number Of Children: 6 year old daughter Beliefs That Will Affect Care: None Patient History Medical History Abnormal EEG Ankylosing spondylitis Anxiety and depression Chest pain Degenerative disc disease DVT (deep venous thrombosis) Eustachian tube dysfunction GERD (gastroesophageal reflux disease) Heart palpitations High cholesterol History of bradycardia History of bulimia History of pre-eclampsia Insomnia Iron deficiency anemia Migraine Morbid obesity with BMI of 40.0-44.9, adult Seasonal allergies Thoracic disc disease Vitamin B12 deficiency Vitamin D deficiency Surgical History History of cardiac cath 06/2015 @ [facility] [place]--d/t chest pain, normal no stents History of cholecystectomy History of esophagogastroduodenoscopy (EGD) History of wisdom tooth extraction Family History Father Hypertension Mother Diabetes Grandfather (Maternal) Diabetes Coronary heart disease Myocardial infarction Congestive heart failure Colorectal cancer Grandfather (Paternal) Diabetes Coronary heart disease Myocardial infarction, Onset Age: 50 Grandmother (Paternal) Pulmonary emphysema Sick sinus syndrome Diabetes Pacemaker Grandmother (Maternal) Family history of diabetes mellitus Aunt Pulmonary emphysema Family/Other Myocardial infarction, Onset Age: 37 Coronary heart disease Uncle Stroke Other Asthma Lymphoma No family history of adverse response to anesthesia Denies family history of Ovarian cancer Prostate cancer Breast cancer Social History Smoking Status: Never smoker Tobacco Type: Cigarettes Second Hand Exposure: No; Hx Alcohol Use: No Hx Substance Use: No Preferred Language: Gambian Communication Ability: Effective Visual Impairment: No Limitations 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 Beliefs That Will Affect Care: None marital status: Current Living Situation: Family Current Living Situation Comment: Lives with and daughter current occupational status: unemployed Other Information That Helps Us Care for You: No Feels Safe at Home: Yes Safety Concerns: Feels Safe At This Time Childhood Exposure to Second-Hand Smoke: Yes caffeine: No during the past year weight has: remained stable Dental Care, Regularly: Yes Physical Activity Frequency: 5-6 Times per Week Seatbelt Use: never Sunscreen Use: Yes Assistive Devices: None Physical Exam Psychiatric: Speech: normal rate/rhythm/volume of speech Mood: + anxious mood Thought Process: linear/logical thought process Thought Content: reality based without delusions Suicidal Thoughts: denies suicidal thoughts Homicidal Thoughts: denies homicidal thoughts Hallucinations: no auditory hallucinations and no visual hallucinations Cognition: recent memory grossly intact, remote memory grossly intact, attention grossly intact and language grossly intact Insight: + fair insight Judgement: + fair judgement Vital Signs (Past 24 Hours): Last Vital Signs Temp 36.6 C 07/09/21 12:06 Pulse 93 H 07/09/21 12:06 Resp 19 07/09/21 12:06 BP 145/88 H 07/09/21 12:06 Pulse Ox 100 07/09/21 12:06 Review of Systems All systems reviewed & are unremarkable except as noted in HPI & below Results & Data (PSY) Laboratory Results reviewed-normal sodium, TSH normal Diagnostic Findings EKG 07/05/21-QTc elevated at 500ms Medications Administered Acetaminophen (Acetaminophen 325 Mg Tab) 650 mg PO Q4H PRN PRN Reason: Pain or Fever Stop: 08/04/21 01:03 Last Admin: 07/08/21 14:44 Dose: 650 mg Documented by: [id number] Enoxaparin Sodium (Enoxaparin Inj 40 Mg/0.4 Ml Syr) 40 mg SQ QAM ANNA Stop: 08/04/21 08:59 Last Admin: 07/09/21 09:56 Dose: 40 mg Documented by: [id number] Admin: 07/08/21 08:17 Dose: 40 mg Documented by: [id number] Admin: 07/07/21 09:42 Dose: Not Given Documented by: [id number] Admin: 07/06/21 08:43 Dose: 40 mg Documented by: [id number] Admin: 07/05/21 07:57 Dose: 40 mg Documented by: [id number] Famotidine (Famotidine 20 Mg Tab) 20 mg PO DAILY [facility] Stop: 08/04/21 08:59 Last Admin: 07/09/21 09:57 Dose: 20 mg Documented by: [id number] Admin: 07/08/21 08:19 Dose: 20 mg Documented by: [id number] Admin: 07/07/21 09:44 Dose: Not Given Documented by: [id number] Admin: 07/06/21 08:44 Dose: 20 mg Documented by: [id number] Admin: 07/05/21 07:59 Dose: 20 mg Documented by: [id number] Fluticasone Propionate (Fluticasone Propionate Na Spr 16 Gm Btl) 1 sprays NA DAILY [facility] Stop: 08/04/21 08:59 Last Admin: 07/09/21 09:58 Dose: Not Given Documented by: [id number] Admin: 07/08/21 08:19 Dose: Not Given Documented by: [id number] Admin: 07/07/21 09:44 Dose: Not Given Documented by: [id number] Admin: 07/06/21 08:44 Dose: Not Given Documented by: [id number] Admin: 07/05/21 08:01 Dose: Not Given Documented by: [id number] Pantoprazole Sodium 40 mg/ (Syringe) 10 mls @ 5 mls/min IV BID ANNA Stop: 08/05/21 20:59 Last Admin: 07/09/21 09:55 Dose: 5 mls/min Documented by: [id number] Admin: 07/08/21 20:09 Dose: 5 mls/min Documented by: [id number] Admin: 07/08/21 08:18 Dose: 5 mls/min Documented by: [id number] Admin: 07/07/21 20:44 Dose: 5 mls/min Documented by: [id number] Admin: 07/07/21 09:41 Dose: 5 mls/min Documented by: [id number] Admin: 07/06/21 20:31 Dose: 5 mls/min Documented by: [id number] Sodium Chloride (Nss 1000ml) 1,000 mls @ 125 mls/hr IV .Q8H ANNA Stop: 08/06/21 09:14 Last Admin: 07/09/21 10:08 Dose: 125 mls/hr Documented by: [id number] Infusion: 07/09/21 10:08 Dose: 125 mls/hr Documented by: [id number] Admin: 07/09/21 02:14 Dose: 125 mls/hr Documented by: [id number] Infusion: 07/09/21 02:12 Dose: 125 mls/hr Documented by: [id number] Admin: 07/08/21 18:12 Dose: 125 mls/hr Documented by: [id number] Infusion: 07/08/21 18:03 Dose: 125 mls/hr Documented by: [id number] Admin: 07/08/21 10:03 Dose: 125 mls/hr Documented by: [id number] Infusion: 07/08/21 10:03 Dose: 75 mls/hr Documented by: [id number] Admin: 07/07/21 22:56 Dose: 75 mls/hr Documented by: [id number] Infusion: 07/07/21 22:56 Dose: 75 mls/hr Documented by: [id number] Admin: 07/07/21 09:40 Dose: 75 mls/hr Documented by: [id number] Ketorolac Tromethamine (Ketorolac Tromethamine 15 Mg/Ml Vial) 15 mg IV Q6H PRN PRN Reason: moderate to severe pain Stop: 07/11/21 13:09 Last Admin: 07/09/21 11:43 Dose: 15 mg Documented by: [id number] Loratadine (Loratadine 10 Mg Tab) 10 mg PO DAILY ANNA Stop: 08/04/21 08:59 Last Admin: 07/09/21 09:57 Dose: 10 mg Documented by: [id number] Admin: 07/08/21 08:19 Dose: 10 mg Documented by: [id number] Admin: 07/07/21 17:14 Dose: 10 mg Documented by: [id number] Admin: 07/07/21 09:43 Dose: Not Given Documented by: [id number] Admin: 07/06/21 08:44 Dose: Not Given Documented by: [id number] Admin: 07/05/21 08:00 Dose: Not Given Documented by: [id number] Magnesium Oxide (Magnesium Oxide 400 Mg Tab) 400 mg PO BID [facility] Stop: 08/08/21 10:59 Last Admin: 07/09/21 11:38 Dose: 400 mg Documented by: [id number] Meclizine HCl (Meclizine Hcl 25 Mg Tab) 25 mg PO TID PRN PRN Reason: dizziness Stop: 08/04/21 01:40 Last Admin: 07/09/21 11:36 Dose: 25 mg Documented by: [id number] Admin: 07/08/21 20:09 Dose: 25 mg Documented by: [id number] Admin: 07/07/21 20:44 Dose: 25 mg Documented by: [id number] Melatonin (Melatonin 3 Mg Tab) 3 mg PO HS PRN PRN Reason: Sleep Stop: 08/03/21 23:13 Last Admin: 07/08/21 20:09 Dose: 3 mg Documented by: [id number] Admin: 07/07/21 20:44 Dose: 3 mg Documented by: [id number] Admin: 07/06/21 20:35 Dose: 3 mg Documented by: [id number] Multivitamins (Multivitamin Tab) 1 tab PO QAM ANNA Stop: 08/04/21 08:59 Last Admin: 07/09/21 09:58 Dose: Not Given Documented by: [id number] Admin: 07/08/21 08:19 Dose: Not Given Documented by: [id number] Admin: 07/07/21 09:43 Dose: Not Given Documented by: [id number] Admin: 07/06/21 08:45 Dose: Not Given Documented by: [id number] Admin: 07/05/21 08:00 Dose: 1 tab Documented by: [id number] Potassium Chloride (Potassium Chloride Crtab 20 Meq Tabcr) 40 meq PO BID ANNA Stop: 08/08/21 10:59 Last Admin: 07/09/21 11:36 Dose: 40 meq Documented by: [id number] Sucralfate (Sucralfate 1 Gm/10 Ml Udc) 1 gm PO QID ANNA Stop: 08/04/21 16:59 Last Admin: 07/09/21 09:56 Dose: 1 gm Documented by: [id number] Admin: 07/08/21 20:10 Dose: 1 gm Documented by: [id number] Admin: 07/08/21 16:02 Dose: 1 gm Documented by: [id number] Admin: 07/08/21 14:40 Dose: 1 gm Documented by: [id number] Admin: 07/08/21 08:17 Dose: 1 gm Documented by: [id number] Admin: 07/07/21 20:44 Dose: 1 gm Documented by: [id number] Admin: 07/07/21 17:14 Dose: 1 gm Documented by: [id number] Admin: 07/07/21 14:22 Dose: Not Given Documented by: [id number] Admin: 07/07/21 09:44 Dose: Not Given Documented by: [id number] Admin: 07/06/21 20:31 Dose: 1 gm Documented by: [id number] Admin: 07/06/21 16:53 Dose: 1 gm Documented by: [id number] Admin: 07/06/21 13:57 Dose: 1 gm Documented by: [id number] Admin: 07/06/21 08:45 Dose: Not Given Documented by: [id number] Admin: 07/05/21 20:15 Dose: Not Given Documented by: [id number] Admin: 07/05/21 18:08 Dose: 1 gm Documented by: [id number] Coding Level of Care Code 93588 Inpt Consult Level 3 Diagnoses Adjustment disorder with anxious mood F43.22 Time Spent (min) 20
--- NOTE | 2021-07-09 14:01 | Hospitalist Progress Note ---
Date of Service July 09, 2021 Assessment & Plan (1) COVID-19: Plan: Patient continues to remain stable Currently on room air, with good O2 saturation CXR no pneumonia monitor Lovenox for DVT prophylaxis (2) Headache: Plan: likely secondary to COVID 19 infection, HTN Resolved Brain MRI negative appreciate Neuro recommendations PRN Toradol (+) light headedness with tinnitus and decreased hearing - possible Meniere's - trial of HCTZ when patient hydration status improves (3) Chest pain: Plan: troponin negative x 3 EKG no signs of acute ischemia echo: no wall motion abnormalities, no pericardial effusion likely GERD from recent high dose Decadron increased Protonix to 40mg BID, change to IV Sucralfate QID magic swizzle one dose PRN Maalox (+) diarrhea clear liquid diet stool for C diff, etc (+) history of gastroduodenitis from EGD 2016 flare up from high dose Decadron? NPO post midnight consult GI D dimer negative Doppler US: negative 07/07 no EGD per GI continue Protonix IV, Sucralfate CT chest and abdomen ordered 07/08 CT chest and abdomen: Unrevealing Epigastric pain improving Continue IV Protonix, sucralfate, as needed Magic swizzle IV NSS increased to 125 cc/h 07/09 chest pain/epigastric pain resolved change to Protonix PO tomorrow continue NSS 125cc/hr (4) Hypertension: Plan: likely from pain, recent Decadron use Amlodipine 2.5mg po daily started BP now at goal on the lower side d/c Amlodipine -- HTN resolved -- BP on the lower side, likely secondary to dehydration, IV NSS increased to 125 cc/h Hypokalemia secondary to decreased p.o. intake - replacement ongoing Hx inappropriate sinus tachycardia as per records - HR 93 Asthma, stable Fibromyalgia/ankylosing spondylitis as per records Prediabetes as per patient, hemoglobin A1c of 5.6 last May, - A1c 5.7 past tobacco abuse DVT prophylaxis per Lovenox subcu Full code plan of care discussed with patient in detail and at length all questions answered she is understanding, agreeable, comfortable with the plan of care Admission and Anticipated Discharge Date Admission Date: July 05, 2021 Subjective ff up for covid 19 infection, etc seen resting in bed, in good spirits feels tired, sleepy with muscle aches chest pain resolved tolerating diet well no nausea no headache no other symptoms Review of Systems Review of Systems: all noted and negative except for above Physical Exam Physical Exam: General- oriented x 3, not in distress, speaks in sentences with no effort or accessory muscle use Eyes- anicteric Neck- no JVD Lungs- clear breath sounds, no crackles/wheezing BL Heart- normal rate, regular rhythm; no murmurs Abdomen- normal bowel sounds, nondistended, soft, nontender Extremities- no pretibial edema, no calf tenderness Neuro- alert, oriented x 3; no gross focal neurologic deficits Skin- warm & dry Results & Data Results & Data ([facility]) Vital Signs (Past 12 Hours) Vital Signs Temp Pulse Pulse Resp BP Pulse Ox 07/09/21 12:06 36.6 C 93 H 19 145/88 H 100 07/09/21 07:41 36.8 C 94 H 18 123/80 97 07/09/21 07:00 82 07/09/21 04:00 36.7 C 90 20 120/77 100 all noted and reviewed including below
[2021-07-09] MEDS: MELATONIN 3 MG TAB PO PRN (20:59)
[2021-07-10] MEDS: SODIUM CHLORIDE 0.9% 1000ML 1,000 ML IV SCH ×2 (00:56→09:07)
[2021-07-10 07:18] LABS: BUN Creatinine Ratio 10.7 (10-20); Est GFR (Non-African American) 122.5 ml/min; Potassium 3.8 mmol/L (3.5-5.1)
[2021-07-10] MEDS: SUCRALFATE 1 GM/10 ML UDC PO SCH ×4 (09:08→21:07)
[2021-07-10] MEDS: POTASSIUM CHLORIDE CRTAB 20 MEQ TABCR PO SCH (09:08)
[2021-07-10] MEDS: MAGNESIUM OXIDE 400 MG TAB PO SCH ×2 (09:08→21:07)
[2021-07-10] MEDS: PANTOprazole 40 MG TAB PO SCH ×2 (09:09→21:09)
[2021-07-10] MEDS: ENOXAPARIN INJ 40 MG/0.4 ML SYR SQ SCH (09:09)
[2021-07-10] MEDS: MULTIVITAMIN TAB PO SCH (09:10)
[2021-07-10] MEDS: FLUTICASONE PROPIONATE NA SPR 16 GM BTL SCH (09:10)
--- NOTE | 2021-07-10 16:44 | Hospitalist Progress Note ---
Date of Service July 10, 2021 Assessment & Plan (1) COVID-19: Plan: Patient continues to remain stable Currently on room air, with good O2 saturation CXR no pneumonia monitor Lovenox for DVT prophylaxis (2) Headache: Plan: likely secondary to COVID 19 infection, HTN Resolved Brain MRI negative appreciate Neuro recommendations PRN Toradol (+) light headedness with tinnitus and decreased hearing - possible Meniere's - trial of HCTZ today PT with [facility] - orthostatic Vital signs negative - d/c Loratidine and Famotidine which can be contributing - possible underlying HUGO- will need Formal Sleep Study (3) Chest pain: Plan: troponin negative x 3 EKG no signs of acute ischemia echo: no wall motion abnormalities, no pericardial effusion likely GERD from recent high dose Decadron increased Protonix to 40mg BID, change to IV Sucralfate QID magic swizzle one dose PRN Maalox (+) diarrhea clear liquid diet stool for C diff, etc (+) history of gastroduodenitis from EGD 2016 flare up from high dose Decadron? NPO post midnight consult GI D dimer negative Doppler US: negative 07/07 no EGD per GI continue Protonix IV, Sucralfate CT chest and abdomen ordered 07/08 CT chest and abdomen: Unrevealing Epigastric pain improving Continue IV Protonix, sucralfate, as needed Magic swizzle IV NSS increased to 125 cc/h 07/10 chest pain resolved change to Protonix PO (4) Hypertension: Plan: likely from pain, recent Decadron use Amlodipine 2.5mg po daily started BP now at goal on the lower side d/c Amlodipine -- d/c IV fluids today Hypokalemia secondary to decreased p.o. intake - 3.8 replacement ongoing Hx inappropriate sinus tachycardia as per records - HR 87 Asthma, stable Fibromyalgia/ankylosing spondylitis as per records Prediabetes as per patient, hemoglobin A1c of 5.6 last May, - A1c 5.7 Past tobacco abuse DVT prophylaxis per Lovenox subcu Full code plan of care discussed with patient in detail and at length all questions answered she is understanding, agreeable, comfortable with the plan of care Admission and Anticipated Discharge Date Admission Date: July 05, 2021 Subjective Follow-up for COVID-19 infection, etc. Seen sitting up in bed, comfortable, not in distress States she feels lightheaded today, especially with upright position Also reports tinnitus, mild decreased hearing in both ears no chest pain, dyspnea, palpitations, dizziness no abdominal pain, nausea/vomiting, chest pain appetite is good no other symptoms Review of Systems Review of Systems: all noted and negative except for above Physical Exam Physical Exam: General- oriented x 3, not in distress, speaks in sentences with no effort or accessory muscle use Eyes- anicteric Neck- no JVD Lungs- clear breath sounds no rales/wheezing Heart- normal rate, regular rhythm; no murmurs Abdomen- normal bowel sounds, nondistended, soft, nontender Extremities- no pretibial edema, no calf tenderness Neuro- alert, oriented x 3; no gross focal neurologic deficits Skin- warm & dry Results & Data Results & Data ([facility]) Vital Signs (Past 12 Hours) Vital Signs Temp Pulse Pulse Resp BP Pulse Ox 07/10/21 15:47 158/123 H 07/10/21 15:46 36.8 C 87 18 120/85 97 07/10/21 15:00 92 H 07/10/21 10:50 36.8 C 86 20 132/93 96 07/10/21 07:00 79 07/10/21 06:15 37 C 80 18 105/63 97 all noted and reviewed including below
[2021-07-10] MEDS: hydroCHLOROthiazide 25 MG TAB PO SCH (16:54)
[2021-07-10] MEDS: MELATONIN 3 MG TAB PO PRN (23:32)
[2021-07-11 07:00] LABS: BUN Creatinine Ratio 9.8 (10-20); Creatinine Clr Calc Pharmacy 187.8 ml/min; Est GFR (African American) 146.4 ml/min; Est GFR (Non-African American) 126.3 ml/min; Magnesium 1.8 mg/dl (1.7-2.4); Potassium 3.6 mmol/L (3.5-5.1)
[2021-07-11] MEDS: PANTOprazole 40 MG TAB PO SCH ×2 (09:47→20:46)
[2021-07-11] MEDS: MECLIZINE HCL 25 MG TAB PO PRN (09:47)
[2021-07-11] MEDS: FLUTICASONE PROPIONATE NA SPR 16 GM BTL SCH (09:48)
[2021-07-11] MEDS: POTASSIUM CHLORIDE CRTAB 20 MEQ TABCR PO SCH (09:48)
[2021-07-11] MEDS: hydroCHLOROthiazide 25 MG TAB PO SCH (09:48)
[2021-07-11] MEDS: MAGNESIUM OXIDE 400 MG TAB PO SCH ×2 (09:49→20:46)
[2021-07-11] MEDS: SUCRALFATE 1 GM/10 ML UDC PO SCH ×4 (09:49→20:46)
[2021-07-11] MEDS: MULTIVITAMIN TAB PO SCH (09:49)
[2021-07-11] MEDS: ENOXAPARIN INJ 40 MG/0.4 ML SYR SQ SCH (09:51)
--- NOTE | 2021-07-11 14:59 | Hospitalist Progress Note ---
Date of Service July 11, 2021 Assessment & Plan (1) COVID-19: Plan: Patient continues to remain stable Currently on room air, with good O2 saturation CXR no pneumonia monitor Lovenox for DVT prophylaxis (2) Headache: Plan: likely secondary to COVID 19 infection, HTN Resolved Brain MRI negative appreciate Neuro recommendations PRN Toradol Lightheadedness with tinnitus and decreased hearing - possible Meniere's - trial of HCTZ 12.5mg daily started PT with [facility] - monitor - orthostatic Vital signs negative - d/c Loratidine and Famotidine which can be contributing - possible underlying HUGO- will need Formal Sleep Study (3) Chest pain: Plan: troponin negative x 3 EKG no signs of acute ischemia echo: no wall motion abnormalities, no pericardial effusion likely GERD from recent high dose Decadron increased Protonix to 40mg BID, change to IV Sucralfate QID magic swizzle one dose PRN Maalox (+) history of gastroduodenitis from EGD 2017 flare up from high dose Decadron? D dimer negative Doppler US: negative no EGD per GI continue Protonix IV, Sucralfate CT chest and abdomen: Unrevealing Epigastric pain improving completed IV Protonix x 3 days, transitioned to PO, also on sucralfate, as needed Magic swizzle (4) Hypertension: Plan: likely from pain, recent Decadron use Amlodipine 2.5mg po daily started BP now at goal on the lower side d/c Amlodipine -- d/c IV fluids Hypokalemia secondary to decreased p.o. intake - 3.6 replacement ongoing Hx inappropriate sinus tachycardia as per records - HR 84 Asthma, stable Fibromyalgia/ankylosing spondylitis as per records Prediabetes as per patient, hemoglobin A1c of 5.6 last May, - A1c 5.7 Past tobacco abuse DVT prophylaxis per Lovenox subcu Full code plan of care discussed with patient in detail and at length all questions answered she is understanding, agreeable, comfortable with the plan of care Admission and Anticipated Discharge Date Admission Date: July 05, 2021 Subjective Follow-up for COVID-19 infection, headache, chest pain, dizziness, etc. Seen resting in bed, comfortable, not in distress Sitting up, on room air States she still feels lightheaded today Still has some tinnitus Headache has resolved as well as chest/epigastric discomfort Tolerating diet well No shortness of breath, cough, chest pain No other symptoms Review of Systems Review of Systems: all noted and negative except for above Physical Exam Physical Exam: General- oriented x 3, not in distress, speaks in sentences with no effort or accessory muscle use Eyes- anicteric Neck- no JVD Lungs- clear breath sounds bilaterally, no crackles or wheezing Heart- normal rate, regular rhythm; no murmurs Abdomen- normal bowel sounds, nondistended, soft, no tenderness Extremities- no pretibial edema, no calf tenderness Neuro- alert, oriented x 3; no gross focal neurologic deficits Skin- warm & dry Results & Data Results & Data ([facility]) Vital Signs (Past 12 Hours) Vital Signs Temp Pulse Pulse Resp BP Pulse Ox 07/11/21 08:00 36.7 C 84 16 101/69 98 07/11/21 07:00 84 all noted and reviewed including below
[2021-07-11] MEDS: MELATONIN 3 MG TAB PO PRN (20:45)
[2021-07-12 07:04] LABS: BUN Creatinine Ratio 15.3 (10-20); Calcium 9.2 mg/dl (8.5-10.1); Creatinine Clr Calc Pharmacy 162.3 ml/min; Est GFR (African American) 139.6 ml/min; Est GFR (Non-African American) 120.4 ml/min; Potassium 3.5 mmol/L (3.5-5.1)
[2021-07-12] MEDS: MULTIVITAMIN TAB PO SCH (08:59)
[2021-07-12] MEDS: FLUTICASONE PROPIONATE NA SPR 16 GM BTL SCH (08:59)
[2021-07-12] MEDS: MAGNESIUM OXIDE 400 MG TAB PO SCH ×2 (09:00→21:15)
[2021-07-12] MEDS: ENOXAPARIN INJ 40 MG/0.4 ML SYR SQ SCH (09:00)
[2021-07-12] MEDS: SUCRALFATE 1 GM/10 ML UDC PO SCH ×4 (09:00→21:15)
[2021-07-12] MEDS: PANTOprazole 40 MG TAB PO SCH ×2 (09:00→21:15)
[2021-07-12] MEDS: hydroCHLOROthiazide 25 MG TAB PO SCH (09:00)
[2021-07-12] MEDS: POTASSIUM CHLORIDE CRTAB 20 MEQ TABCR PO SCH (09:01)
--- NOTE | 2021-07-12 19:36 | Hospitalist Progress Note ---
Date of Service July 12, 2021 Assessment & Plan (1) COVID-19: Plan: Patient continues to remain stable Currently on room air, with good O2 saturation CXR no pneumonia monitor Lovenox for DVT prophylaxis (2) Headache: Plan: likely secondary to COVID 19 infection, HTN Resolved Brain MRI negative appreciate Neuro recommendations PRN Toradol Lightheadedness with tinnitus and decreased hearing - possible Meniere's - trial of HCTZ 12.5mg daily started PT with [facility] Will get a carotid doppler - monitor - orthostatic Vital signs negative - d/c Loratidine and Famotidine which can be contributing - possible underlying HUGO- will need Formal Sleep Study (3) Chest pain: Plan: troponin negative x 3 EKG no signs of acute ischemia echo: no wall motion abnormalities, no pericardial effusion likely GERD from recent high dose Decadron increased Protonix to 40mg BID, change to IV Sucralfate QID magic swizzle one dose PRN Maalox (+) history of gastroduodenitis from EGD 2017 flare up from high dose Decadron? D dimer negative Doppler US: negative no EGD per GI continue Protonix IV, Sucralfate CT chest and abdomen: Unrevealing Epigastric pain improving completed IV Protonix x 3 days, transitioned to PO, also on sucralfate, as needed Magic swizzle (4) Hypertension: Plan: likely from pain, recent Decadron use Amlodipine 2.5mg po daily started BP now at goal on the lower side d/c Amlodipine -- d/c IV fluids Hypokalemia secondary to decreased p.o. intake - 3.6 replacement ongoing Hx inappropriate sinus tachycardia as per records - HR 84 Asthma, stable Fibromyalgia/ankylosing spondylitis as per records Prediabetes as per patient, hemoglobin A1c of 5.6 last May, - A1c 5.7 Past tobacco abuse DVT prophylaxis per Lovenox subcu Full code plan of care discussed with patient in detail and at length all questions answered she is understanding, agreeable, comfortable with the plan of care Admission and Anticipated Discharge Date Admission Date: July 05, 2021 Subjective Pt was seen and examined for follow up of lightheaded Sitting in bed with no distress talking on her cell phone Pt said that she continued to have lightheaded No shortness of breath, cough, chest pain Review of Systems Review of Systems: All systems reviewed & are unremarkable except as noted in Subjective Physical Exam Physical Exam: General- No acute distress Head- atraumatic Eyes- PERRL, EOMI, ENT- oropharynx clear Neck- supple, no JVD Lungs- clear to auscultation Heart- regular rhythm; no murmur Abdomen- normal bowel sounds, soft, nontender Extremities- no calf tenderness Neuro- alert, oriented x 3; PERRL, EOMI; no facial palsy; no dysarthria Skin- warm & dry Results & Data Results & Data ([facility]) Vital Signs (Past 12 Hours) Vital Signs Temp Pulse Pulse Resp BP Pulse Ox 07/12/21 19:18 36.8 C 90 18 124/88 94 07/12/21 16:41 102 H 07/12/21 15:55 36.7 C 97 H 19 136/91 95 07/12/21 12:24 36.6 C 91 H 20 113/77 96 07/12/21 08:01 37.0 C 87 18 125/75 99
[2021-07-12] MEDS: MELATONIN 3 MG TAB PO PRN (21:15)
[2021-07-13] MEDS: MULTIVITAMIN TAB PO SCH (08:41)
[2021-07-13] MEDS: POTASSIUM CHLORIDE CRTAB 20 MEQ TABCR PO SCH (08:41)
[2021-07-13] MEDS: PANTOprazole 40 MG TAB PO SCH (08:41)
[2021-07-13] MEDS: FLUTICASONE PROPIONATE NA SPR 16 GM BTL SCH (08:41)
[2021-07-13] MEDS: MAGNESIUM OXIDE 400 MG TAB PO SCH (08:41)
[2021-07-13] MEDS: ENOXAPARIN INJ 40 MG/0.4 ML SYR SQ SCH (08:41)
[2021-07-13] MEDS: SUCRALFATE 1 GM/10 ML UDC PO SCH ×2 (08:41→12:27)
[2021-07-13] MEDS: hydroCHLOROthiazide 25 MG TAB PO SCH (08:42)
--- NOTE | 2021-07-13 09:31 | Ultrasound Report ---
ULTRASOUND OF THE CAROTID ARTERIES CLINICAL HISTORY: dizziness COMPARISON: None available at the time of this dictation. TECHNIQUE: Real-time, grayscale, and color Doppler sonography of the carotid arteries is performed. I mages are reviewed in the transverse and longitudinal planes. FINDINGS: Blood pressures were unable to be obtained. The carotid arteries are patent bilaterally and demonstrate antegrade flow. There is no atherosclerot ic plaque on the right and no atherosclerotic plaque on the left. Normal doppler arterial waveforms a re seen throughout. Velocity measurements are listed below. Common carotid peak systolic velocity (cm/sec): RIGHT: 84 LEFT: 91 ICA peak systolic velocity (cm/sec): RIGHT: 73 LEFT: 85 ICA/CC peak systolic ratio: RIGHT: 0.87 LEFT: 0.93 Antegrade flow was shown in the vertebral arteries. The external carotid arteries are patent. IMPRESSION: 1. There is no sonographic evidence of hemodynamically significant stenosis in the right or left carbajal tid arterial system. 2. Antegrade flow is shown in the vertebral arteries. Society of Radiologists in Ultrasound consensus guidelines: Normal: ICA PSV is <125 cm/sec and no plaque or intimal thickening is visible sonographically additional criteria include ICA/CCA PSV ratio <2.0 and ICA EDV <40 cm/sec <50% ICA stenosis: ICA PSV is <125 cm/sec and plaque or intimal thickening is visible sonographically additional criteria include ICA/CCA PSV ratio <2.0 and ICA EDV <40 cm/sec 50-69% ICA stenosis: ICA PSV is 125-230 cm/sec and plaque is visible sonographically additional criteria include ICA/CCA PSV ratio of 2.0-4.0 and ICA EDV of 40-100 cm/sec ?70% ICA stenosis but less than near occlusion: ICA PSV is >230 cm/sec and visible plaque and luminal narrowing are seen at beltran-scale and color Dopp ler ultrasound (the higher the Doppler parameters lie above the threshold of 230 cm/sec, the greater the likelihood of severe disease) additional criteria include ICA/CCA PSV ratio >4 and ICA EDV >100 cm/sec ACT 112: Negative or not required by law. Electronically signed by: Juice Smith M.D. 07/13/2021 9:29 AM
[2021-07-13 11:32] VITALS: PULSE 86; TEMP 97.9; O2SAT 93
--- NOTE | 2021-07-13 14:22 | Discharge Summary ---
Date of Service July 13, 2021 Admission HPI Per Admitting Provider History obtained from patient and records. Medical history significant for inappropriate sinus tachycardia, hyperlipidemia, history lower extremity DVT status post anticoagulation, asthma, HUGO, GERD, fibromyalgia, ankylosing spondylitis, prediabetes as per patient, past tobacco abuse. Last confinement 2014 for chest pain attributed to viral pericarditis. Patient discharged on NSAIDs and colchicine course. One year history of lightheadedness symptoms associated with tunnel vision, visual disturbance described as spots, ringing in the ears, achy headache symptoms, near syncope. Possible somatoform disorder which patient disagrees with as per PCP note. Outpatient TTE from January 2021 showed EF of 60 to 64%. No LVH and no valvular disease. Patient evaluated by [facility] 3 months ago. Working diagnosis vertiginous migraine. Patient did not tolerate Topamax Rx. Outpatient tilt test evaluate for POTS was negative. [facility] later prescribed acetazolamide for possible Mnire's disease. Patient scheduled to see [facility] neurology for neurologic symptoms for second opinion as per outpatient records. Patient has not been well the last 2 weeks. Cough and congestion symptoms. Outpatient COVID-19 test was positive. Patient has not received COVID-19 vaccination. Decadron course prescribed by outpatient provider. Decadron stopped after 3 days because of increasing sugars. SBP noted to be elevated at home 1 40-1 80s as per patient. Patient noted worsening of chronic head pressure, dizziness, visual abnormality symptoms. Patient evaluated at [facility] but was sent home with negative work-up. Patient returned to ER yesterday because of persistent symptoms associated with worsening of chronic chest pain. CT chest could not be done due to IV dye allergy. Patient sent home. Patient brought by to [facility] for evaluation because of persistent symptoms. Patient subsequently discharged home. Patient returned to [facility] ER because of worsening symptoms and weakness, having trouble moving around. Chest pain making it hard for her to breathe. SBP 187/135 at one point at the ER. 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 Admission Exam Per Admitting Provider GENERAL: Uncomfortable, anxious, morbidly obese, no respiratory distress SKIN: Normal color, warm HEENT: Bespectacled, pink palpebral conjunctivae, no ptosis, dry buccal mucosa NECK : Supple, short neck, no tenderness CHEST : CTA, no tenderness HEART : RRR, no obvious murmurs ABDOMEN: Some distention, nontender EXTREMITIES : Minimal LE swelling, no LE tenderness, no other conspicuous deformities noted NEUROLOGIC : Coherent, no facial asymmetry, gait and stance not assessed Principal Diagnosis COVID-19 Lightheadedness Discharge Exam General- No acute distress Head- atraumatic Eyes- PERRL, EOMI, ENT- oropharynx clear Neck- supple, no JVD Lungs- clear to auscultation Heart- regular rhythm; no murmur Abdomen- normal bowel sounds, soft, nontender Extremities- no calf tenderness Neuro- alert, oriented x 3; PERRL, EOMI; no facial palsy; no dysarthria Skin- warm & dry Discharge Data Allergies Allergy/AdvReac Type Severity Reaction Status Date / Time amoxicillin Allergy Severe ANAPHYLAXIS Verified 07/04/21 01:04 clavulanic acid Allergy Severe ANAPHYLAXIS Verified 07/04/21 01:04 Iodinated Contrast Media Allergy Severe Hives, Verified 07/04/21 22:45 tongue swelling doxycycline Allergy Intermediate Rash Verified 07/04/21 01:04 sulfamethoxazole Allergy Intermediate tongue Verified 07/04/21 01:04 [From Bactrim] swelling trimethoprim [From Bactrim] Allergy Intermediate tongue Verified 07/04/21 01:04 swelling metronidazole Allergy Mild rash Verified 07/04/21 01:04 coffee (Coffea arabica) Allergy Unknown per Verified 07/04/21 01:04 allergy testing Penicillins Allergy Unknown per Verified 06/24/21 23:49 allergy testing egg Allergy Hives Verified 07/05/21 12:33 fish derived Allergy Hives Verified 07/08/21 12:28 Consultations 07/04/21 21:33 ED Decision to Admit Stat 07/05/21 09:24 Consult Neurology Routine 07/06/21 15:41 Consult Gastroenterology Routine 07/08/21 16:05 Consult Psychiatry Routine Ordered Studies 07/04/21 15:35 MR brain wo con Stat 07/04/21 22:22 US venous doppler LE BI Urgent 07/07/21 15:27 CT abd pelvis wo con Urgent CT chest diagnostic wo con Urgent 07/12/21 16:25 US carotid doppler BI Routine CT SCAN OF THE CHEST, ABDOMEN, AND PELVIS WITHOUT IV CONTRAST CLINICAL HISTORY: Atypical chest pain. Epigastric abdominal pain. COMPARISON STUDY: Chest CT dated 03/27/2018. Abdominal CT dated 05/17/2018. TECHNIQUE: Unenhanced CT scan of the chest, abdomen, and pelvis was performed from the thoracic inlet to the proximal femora. Images are reviewed in the axial, sagittal, and coronal planes. IV contrast was not administered for this examination. Note that the examination is suboptimal without oral and IV contrast. A dose lowering technique was utilized adhering to the principles of ALARA. CT DOSE: 2558.98 mGy.cm FINDINGS: CHEST: Thyroid: Imaged portions of the thyroid gland are normal in size and attenuation. Thoracic aorta: The thoracic aorta is normal in caliber and demonstrates standard 3-vessel arch anatomy. Heart: The heart is normal in size and without pericardial effusion. Lungs and pleural spaces: There is mild multifocal groundglass consolidation seen throughout both lungs. No pleural effusion is identified. The trachea and central airways are clear. There is no pneumothorax. A 3 mm low suspicion pleural-based nodule is seen in the anterior left upper lobe on image #92. A 4 mm lung lower lobe pulmonary nodule is seen on image #130 and a 2 mm pleural- based nodule in the right middle lobe is seen on image #132. These are unchanged from 2018 and of doubtful significance. Mediastinum: There is no mediastinal lymphadenopathy. Rachell: Not well assessed without IV contrast. Axillae: There is no axillary lymphadenopathy. Bony thorax: No lytic or blastic lesions are identified. Posterior disc osteophyte complexes are seen T10-T11 and T11-T12. ABDOMEN AND PELVIS: Liver: The unenhanced liver is normal in size, contour, and attenuation. There is no intra- or extrahepatic biliary ductal dilatation. Gallbladder: Surgically absent noting clips in the gallbladder fossa. Spleen: Normal in size and attenuation. Pancreas: Unremarkable. Adrenal glands: Unremarkable. Kidneys: The unenhanced kidneys are normal in size and without hydronephrosis. No renal calculi are identified. There is no evidence of contour deforming mass lesion. Abdominal vasculature: The abdominal aorta is normal in course and caliber. Bowel: There are scattered colonic diverticula without CT evidence of acute diverticulitis. No bowel obstruction is seen. Submucosal fat deposition is noted throughout the colon. The appendix is well-visualized and normal. Peritoneum: There is no intraperitoneal free air or abdominal ascites. Lymphadenopathy: None. Pelvic viscera: The bladder, uterus, and adnexa are normal as visualized noting bilateral ovarian follicles. Skeletal structures: No lytic or blastic lesions are seen. There is a left-sided pars defect at L5. Posterior disc bulges are noted at L4-L5 and L5-S1. IMPRESSION: 1. Mild multifocal groundglass consolidation is seen throughout both lungs, typical for an infectious/inflammatory pneumonitis. Clinical correlation will be required. 2. No pleural effusion is seen. 3. No acute infectious or inflammatory findings are identified in the abdomen or pelvis. 4. Additional findings as above. ACT 112: Negative or not required by law. Electronically signed by: Levar Cade M.D. 07/07/2021 4:25 PM Dictated:07/07/211616 Transcribed: 07/07/211616 ULTRASOUND OF THE CAROTID ARTERIES CLINICAL HISTORY: dizziness COMPARISON: None available at the time of this dictation. TECHNIQUE: Real-time, grayscale, and color Doppler sonography of the carotid arteries is performed. Images are reviewed in the transverse and longitudinal planes. FINDINGS: Blood pressures were unable to be obtained. The carotid arteries are patent bilaterally and demonstrate antegrade flow. There is no atherosclerotic plaque on the right and no atherosclerotic plaque on the left. Normal doppler arterial waveforms are seen throughout. Velocity measurements are listed below. Common carotid peak systolic velocity (cm/sec): RIGHT: 84 LEFT: 91 ICA peak systolic velocity (cm/sec): RIGHT: 73 LEFT: 85 ICA/CC peak systolic ratio: RIGHT: 0.87 LEFT: 0.93 Antegrade flow was shown in the vertebral arteries. The external carotid arteries are patent. IMPRESSION: 1. There is no sonographic evidence of hemodynamically significant stenosis in the right or left carotid arterial system. 2. Antegrade flow is shown in the vertebral arteries. Society of Radiologists in Ultrasound consensus guidelines: Normal: ICA PSV is <125 cm/sec and no plaque or intimal thickening is visible sonographically additional criteria include ICA/CCA PSV ratio <2.0 and ICA EDV <40 cm/sec <50% ICA stenosis: ICA PSV is <125 cm/sec and plaque or intimal thickening is visible sonographically additional criteria include ICA/CCA PSV ratio <2.0 and ICA EDV <40 cm/sec 50-69% ICA stenosis: ICA PSV is 125-230 cm/sec and plaque is visible sonographically additional criteria include ICA/CCA PSV ratio of 2.0-4.0 and ICA EDV of 40-100 cm/sec ?70% ICA stenosis but less than near occlusion: ICA PSV is >230 cm/sec and visible plaque and luminal narrowing are seen at beltran-scale and color Doppler ultrasound (the higher the Doppler parameters lie above the threshold of 230 cm/sec, the greater the likelihood of severe disease) additional criteria include ICA/CCA PSV ratio >4 and ICA EDV >100 cm/sec ACT 112: Negative or not required by law. Electronically signed by: Juice Smith M.D. 07/13/2021 9:29 AM Dictated:07/13/21927 Transcribed: 07/13/21927 CT SCAN OF THE CHEST, ABDOMEN, AND PELVIS WITHOUT IV CONTRAST CLINICAL HISTORY: Atypical chest pain. Epigastric abdominal pain. COMPARISON STUDY: Chest CT dated 03/27/2018. Abdominal CT dated 05/17/2018. TECHNIQUE: Unenhanced CT scan of the chest, abdomen, and pelvis was performed from the thoracic inlet to the proximal femora. Images are reviewed in the axial, sagittal, and coronal planes. IV contrast was not administered for this examination. Note that the examination is suboptimal without oral and IV contrast. A dose lowering technique was utilized adhering to the principles of ALARA. CT DOSE: 2558.98 mGy.cm FINDINGS: CHEST: Thyroid: Imaged portions of the thyroid gland are normal in size and attenuation. Thoracic aorta: The thoracic aorta is normal in caliber and demonstrates standard 3-vessel arch anatomy. Heart: The heart is normal in size and without pericardial effusion. Lungs and pleural spaces: There is mild multifocal groundglass consolidation seen throughout both lungs. No pleural effusion is identified. The trachea and central airways are clear. There is no pneumothorax. A 3 mm low suspicion pleural-based nodule is seen in the anterior left upper lobe on image #92. A 4 mm lung lower lobe pulmonary nodule is seen on image #130 and a 2 mm pleural- based nodule in the right middle lobe is seen on image #132. These are unchanged from 2018 and of doubtful significance. Mediastinum: There is no mediastinal lymphadenopathy. Rachell: Not well assessed without IV contrast. Axillae: There is no axillary lymphadenopathy. Bony thorax: No lytic or blastic lesions are identified. Posterior disc osteophyte complexes are seen T10-T11 and T11-T12. ABDOMEN AND PELVIS: Liver: The unenhanced liver is normal in size, contour, and attenuation. There is no intra- or extrahepatic biliary ductal dilatation. Gallbladder: Surgically absent noting clips in the gallbladder fossa. Spleen: Normal in size and attenuation. Pancreas: Unremarkable. Adrenal glands: Unremarkable. Kidneys: The unenhanced kidneys are normal in size and without hydronephrosis. No renal calculi are identified. There is no evidence of contour deforming mass lesion. Abdominal vasculature: The abdominal aorta is normal in course and caliber. Bowel: There are scattered colonic diverticula without CT evidence of acute diverticulitis. No bowel obstruction is seen. Submucosal fat deposition is noted throughout the colon. The appendix is well-visualized and normal. Peritoneum: There is no intraperitoneal free air or abdominal ascites. Lymphadenopathy: None. Pelvic viscera: The bladder, uterus, and adnexa are normal as visualized noting bilateral ovarian follicles. Skeletal structures: No lytic or blastic lesions are seen. There is a left-sided pars defect at L5. Posterior disc bulges are noted at L4-L5 and L5-S1. IMPRESSION: 1. Mild multifocal groundglass consolidation is seen throughout both lungs, typical for an infectious/inflammatory pneumonitis. Clinical correlation will be required. 2. No pleural effusion is seen. 3. No acute infectious or inflammatory findings are identified in the abdomen or pelvis. 4. Additional findings as above. ACT 112: Negative or not required by law. Electronically signed by: Levar Cade M.D. 07/07/2021 4:25 PM Dictated:07/07/21 1617 Transcribed: 07/07/21 1617 ULTRASOUND BILATERAL LOWER EXTREMITY VENOUS CLINICAL HISTORY: Lower extremity edema. Covid. COMPARISON STUDY: Bilateral lower extremity venous ultrasound dated 03/28/2018 TECHNIQUE: Real-time, grayscale, and color Doppler sonography of the deep veins of the right and left lower extremity was performed from the inguinal crease to the calf. Compression and augmentation were utilized. FINDINGS: There is no sonographic evidence of deep venous thrombosis identified in the right or left lower extremity. The common femoral, superficial femoral, and popliteal veins are patent and normally compressible bilaterally. The greater saphenous vein and the profunda femoris vein at the junction with the common femoral vein are clear in both legs. The visualized calf veins are patent bilaterally. IMPRESSION: There is no sonographic evidence of deep venous thrombosis identified in the right or left lower extremity. ACT 112: Negative or not required by law. Electronically signed by: Levar Cade M.D. 07/05/2021 7:01 AM Dictated:07/05/21 0700 Transcribed: 07/05/21 0700 XR chest 1V portable CLINICAL HISTORY: Atypical chest pain. COMPARISON STUDY: Chest radiograph performed earlier today. FINDINGS: Lung volumes are mildly diminished. There is no pneumothorax or pleural effusion. There is been interval development of possible mild left midlung opacity. Cardiac size is normal. There is no evidence for pulmonary edema. There is no lobar consolidation. IMPRESSION: Interval development of possible mild left midlung opacity. An infectious process cannot be excluded. ACT 112: Negative or not required by law. Electronically signed by: Geremias Andrews M.D. 07/04/2021 4:05 PM Dictated:07/04/21 1603 Transcribed: 07/04/21 1603 Brain MRI WITHOUT CONTRAST HISTORY: vision changes, headache, weakness, covid 19 TECHNIQUE: Multiplanar multisequence MRI of the brain was performed without the use of contrast. COMPARISON STUDY: Head CT 07/04/2021. Brain MRI 03/11/2021. FINDINGS: There are no areas of restricted diffusion to suggest acute infarction. The midline structures are intact. The paranasal sinuses are clear. The mastoid air cells are clear. The ventricles and sulci are within normal limits for age. There is no mass, hematoma, midline shift. The major vascular flow-voids at the skull base are well maintained. Prominence of the adenoid tonsils, unchanged. IMPRESSION: No significant change compared to the prior study. No acute intracranial abnormality. Electronically signed by: [place] M.D. 07/04/2021 8:19 PM Dictated:07/04/212011 Transcribed: 07/04/212011 Hospital Course (1) COVID-19: Patient continues to remain stable Currently on room air, with good O2 saturation CT chest showed Mild multifocal groundglass consolidation is seen throughout both lungs, typical for an infectious/inflammatory pneumonitis. Asymptomatic (2) Headache: likely secondary to COVID 19 infection, HTN Resolved Brain MRI negative appreciate Neuro recommendations PRN Toradol Lightheadedness with tinnitus and decreased hearing - possible Meniere's - trial of HCTZ 12.5mg daily started PT with Vestibular Rehab Carotid doppler showed no sonographic evidence of hemodynamically significant stenosis in the right or left carotid arterial system - orthostatic Vital signs negative - possible underlying HUGO- will need Formal Sleep Study - Follow up with neurology next week outpatient -Consider outpatient follow with ENT (3) Chest pain: troponin negative x 3 EKG no signs of acute ischemia echo: no wall motion abnormalities, no pericardial effusion likely GERD from recent high dose Decadron increased Protonix to 40mg BID, change to IV Sucralfate QID magic swizzle one dose PRN Maalox (+) history of gastroduodenitis from EGD 2017 flare up from high dose Decadron? D dimer negative Doppler US: negative GI on board - No plan for EGD inpatient Recommend OP EGD in about 1 month Continue PO Pepcid until OP EGD Continue PO Carafate x 1 month Insurance does not want to pay for the Pantoprazole BID. will change to Lansoprazole 15mg BID for 1 month, then will transition to Pantoprazole after 1 month since insurance will pay for it. CT chest and abdomen showed No acute infectious or inflammatory findings are identified in the abdomen or pelvis. Epigastric pain improving completed IV Protonix x 3 days, transitioned to PO, also on sucralfate, as needed Magic swizzle (4) Hypertension: likely from pain, recent Decadron use Amlodipine 2.5mg po daily started BP now at goal on the lower side d/c Amlodipine -- d/c IV fluids Hypokalemia secondary to decreased p.o. intake - 3.6, stable Hx inappropriate sinus tachycardia as per records - HR 84 Asthma, stable Fibromyalgia/ankylosing spondylitis as per records Prediabetes as per patient, hemoglobin A1c of 5.6 last May, - A1c 5.7 Past tobacco abuse DVT prophylaxis per Lovenox subcu Full code plan of care discussed with patient in detail and at length all questions answered she is understanding, agreeable, comfortable with the plan of care Total Time Total Time Spent Total Time Spent (In Minutes): 35 minutes Discharge Plan Discharge Items Patient Disposition: Home - Self-Care Reason For Visit: UNCONTROLLED HTN, COVID Discharge Diagnosis: COVID-19: Lightheadedness Condition on Discharge: Good Activity: Resume your previous activity Non-emergency contact: Primary Care Provider and Neurologist Call non-emergency contact if: you have any medication questions Follow-up/Referrals: [facility] [Other] (The [facility] will call you with an appointment. ) David Fay MD [Physician] - 07/18/21 2:15 pm Angela Raza MD [Primary Care Provider] - (Date & Time 07/17/2021 12:20 PM Provider Maddison Parker PA-C Department [facility] ) Diet: Regular Addtl Attending Provider Instructions: Follow up with your primary care provider Maddison Parker on 07/17/2021 @ 12:20 PM at the [facility] Follow up with [facility] neurology Dr. Fay on 07/18/21 at 2:15 PM Follow up with gastroenterology in 4 weeks to arrange for outpatient Endoscopy (Office will call you for the appointment) Follow up with ENT outpatient ( Your provider will arrange for the referral ) Outpatient referral for vestibular rehab No driving for now and avoid any high risk fall activity ( Until evaluating by neurology or your provider) Fall precaution Continue to wear mask and practice social distance Since insurance does not want to cover the pantoprazole twice a day, will change it to lansoprazole 15mg twice for 1 month; then after 1month ok to transi tion to Pantoprazole daily. Home Isolation COVID-19 Instructions The following information about Home Isolation is from the CDC Website: https://www.cdc.gov/coronavirus/2019-ncov/hcp/vcxpvxpv-bheatql-svuvwv.html Stay home except to get medical care People who are mildly ill with COVID-19 are able to isolate at home during their illness. You should restrict activities outside your home, except for getting medical care. Do not go to work, school, or public areas. Avoid using public transportation, ride-sharing, or taxis. Separate yourself from other people and animals in your home People: As much as possible, you should stay in a specific room and away from other people in your home. Also, you should use a separate bathroom, if available. Animals: You should restrict contact with pets and other animals while you are sick with COVID-19, just like you would around other people. Although there have not been reports of pets or other animals becoming sick with COVID-19, it is still recommended that people sick with COVID-19 limit contact with animals until more information is known about the virus. When possible, have another member of your household care for your animals while you are sick. If you are sick with COVID-19, avoid contact with your pet, including petting, snuggling, being kissed or licked, and sharing food. If you must care for your pet or be around animals while you are sick, wash your hands before and after you interact with pets and wear a face mask. Call ahead before visiting your doctor If you have a medical appointment, call the healthcare provider and tell them that you have or may have COVID-19. This will help the healthcare providers office take steps to keep other people from getting infected or exposed. Wear a face mask You should wear a face mask when you are around other people (e.g., sharing a room or vehicle) or pets and before you enter a healthcare providers office. If you are not able to wear a face mask (for example, because it causes trouble breathing), then people who live with you should not stay in the same room with you, or they should wear a face mask if they enter your room. Cover your coughs and sneezes Cover your mouth and nose with a tissue when you cough or sneeze. Throw used tissues in a lined trash can. Immediately wash your hands with soap and water for at least 20 seconds or, if soap and water are not available, clean your hands with an alcohol-based hand rose grading supervisor that contains at least 60% alcohol. Clean your hands often Wash your hands often with soap and water for at least 20 seconds, especially after blowing your nose, coughing, or sneezing; going to the bathroom; and before eating or preparing food. If soap and water are not readily available, use an alcohol-based hand rose grading supervisor with at least 60% alcohol, covering all surfaces of your hands and rubbing them together until they feel dry. Soap and water are the best option if hands are visibly dirty. Avoid touching your eyes, nose, and mouth with unwashed hands. Avoid sharing personal household items You should not share dishes, drinking glasses, cups, eating utensils, towels, or bedding with other people or pets in your home. After using these items, they should be washed thoroughly with soap and water. Clean all high-touch surfaces everyday High touch surfaces include counters, tabletops, doorknobs, bathroom fixtures, toilets, phones, keyboards, tablets, and bedside tables. Also, clean any surfaces that may have blood, stool, or body fluids on them. Use a household cleaning spray or wipe, according to the label instructions. Labels contain instructions for safe and effective use of the cleaning product including precautions you should take when applying the product, such as wearing gloves and making sure you have good ventilation during use of the product. Monitor your symptoms Seek prompt medical attention if your illness is worsening (e.g., difficulty breathing).Beforeseeking care, call your healthcare provider and tell them that you have, or are being evaluated for, COVID-19. Put on a face mask before you enter the facility. These steps will help the healthcare providers office to keep other people in the office or waiting room from getting infected or exposed. Ask your healthcare provider to call the local or state health department. Persons who are placed under active monitoring or facilitated self- monitoring should follow instructions provided by their local health department or occupational health professionals, as appropriate. When working with your local health department check their available hours. If you have a medical emergency and need to call 911, notify the dispatch personnel that you have, or are being evaluated for COVID-19. If possible, put on a face mask before emergency medical services arrive. Discontinuing home isolation Patients with confirmed COVID-19 should remain under home isolation precautions until the risk of secondary transmission to others is thought to be low. The decision to discontinue home isolation precautions should be made on a [id number] basis, in consultation with healthcare providers and state and local health departments. Coronavirus disease 2019 (COVID-19) is a virus that causes a respiratory illness. It is caused by a coronavirus called 2019 novel coronavirus (2019- nCoV). There are many types of coronavirus. Coronaviruses are a very common cause of bronchitis. They may sometimes cause lung infection(pneumonia). Symptoms can range from mild to severe respiratory illness. These viruses are also foundin some animals. COVID-19 was first found in people in [facility], in late 2019. In 2020, several cases of COVID-19 have been confirmed in the [place] Public health officials are working to find the source. How the virus spreads is not yet fully known. It may be spread through droplets of fluid that a person coughs or sneezes into the air. It may be spread if you touch a surface with virus on it, such as a handle or object, and then touch your mouth. What are the symptoms of COVID-19? Some people have no symptoms or mild symptoms. Symptoms may appear 2 to 14 days after contact with the virus. Symptoms can include: Fever Coughing Trouble breathing What are possible complications from COVID-19? In many cases, this virus can cause infection (pneumonia) in both lungs. In some cases, this can cause . How is COVID-19 diagnosed? Your healthcare provider will ask about your symptoms. He or she will also ask about your recent travel and contact with sick people. Testing for the virus is only done through the CDC. If yourhealthcare provider thinks you may have COVID- 19, he or she will work with your local health department and the CDC on testing. Follow all instructions from your healthcare provider. COVID-19 is diagnosed by: Nasal and throat swab. A cotton-tipped swab is wiped inside your nose or throat. This is done to check for viruses in your nasal mucus. Sputum culture. A small sample of mucus coughed from your lungs (sputum) is collected if you have a cough. It is checked for the virus. How is COVID-19 treated? There is currently no medicine to treat the virus. Treatment is done to help your body while it fights the virus. This is known as supportive care. Supportive care may include: Pain medicine. These include acetaminophen and ibuprofen. They are used to help ease pain and reduce fever. Bed rest. This helps your body fight the illness. For severe illness, you may need to stay in the hospital. Care during severe illness may include: IV (intravenous) fluids.These are given through a vein to help keep your body hydrated. Oxygen. Supplemental oxygen or ventilation with a breathing machine (ventila tor) may be given. This is done to keep enough oxygen in your body. Are you at risk for COVID-19? If youve been to a place where people have been sick with this virus, you are at risk for infection. You are at risk if you: Recently traveled to an affected area Had contact with a sick person who recently traveled to this area Had contact with a person who was diagnosed with COVID-19 How can COVID-19 be prevented? There is no vaccine yet. The best prevention is to not have contact with the virus. The CDC advises that people should not travel to areas where there are COVID-19 outbreaks right now for any reason that is not urgent. To help prevent spreading the infection, wash your hands often, or use an alcohol-basedhand rose grading supervisor. If you are in an area with COVID-19: Wash your hands often. Or use an alcohol-based hand rose grading supervisor often. Only touch your eyes, nose, or mouth with clean hands. Dont have contact with people who are sick. Follow local instructions about being in public. For example, you may be told to not use public transport for a period of time. Stay away from markets that have live or animals. Wash your hands after touching any animals. Don't touch animals that may be sick. Dont share eating or drinking tools with sick people. Dont kiss someone who is sick. Clean surfaces often with disinfectant. If you were in an area with COVID-19 in the last 14 days: Call your healthcare provider. He or she can talk with local health staff to see what action may be needed. Follow all instructions from your provider. Take your temperature every morning and evening for at least 14 days. This is to check for fever. Keep a record of the readings. Keep watch for symptoms of the virus. Tell your provider right away if you have symptoms. If you were in an area with COVID-19 and have a fever or other symptoms: Dont panic. Keep in mind that other illnesses can cause similar symptoms. Stay away from work, school, and public places. Limit physical contact with family members. Don't kiss anyone or share eating or drinking utensils. Clean surfaces you touch with disinfectant. This is to help prevent the virus from spreading. Call your healthcare provider. Explain that you have been exposed to COVID-19 and have symptoms. Do this before going to any hospital. Wait for instructions. Keep in mind that healthcare staff may wear protective equipment such as masks, gowns, gloves, and eye protection. You may be put in a separate room. This is to prevent the possible virus from spreading. Tell the healthcare staff about recent travel. This includes local travel on public transport. Staff may need to find other people you have been in contact with. Follow all instructions the healthcare staff give you. If you have been diagnosed with COVID-19 Follow all instructions from your healthcare provider. Dont leave your home, except to get medical care. Call your healthcare providers office before going. They can prepare and give you instructions. This will help prevent the virus from spreading. Dont go to work, school, or public areas. Dont use public transport or taxis. Stay away from other people in your home. Have them wear face masks around you. Dont share household items or food. Wear a face mask if you can. This includes at home or in a medical facility. Cover your face with a tissue when you cough or sneeze. Throw the tissue away. Wash your hands. Wash your hands often. Caregivers should: Follow all instructions from healthcare staff. Wear a face mask and protective clothing as advised. Wash hands often. Keep track of the sick persons symptoms. Clean surfaces, fabrics, and laundry thoroughly. Keep other people away from the sick person. When to call your healthcare provider Call your healthcare provider: If youve recently traveled and have symptoms If you have been diagnosed with COVID-19 and your symptoms are worse To learn more To find out more about COVID-19, visit the CDC website at www.cdc.gov/coronavirus/2019-ncov/index.html. 1449-[address] [employer]. [address] [place] [address]. All rights reserved. This information is not intended as a substitute for professional medical care. Always follow your healthcare professional's instructions. This information has been adapted from [employer] Pending Studies at Discharge: No Stand-Alone Forms: My [employer], Smoking Cessation Medications and DC Order Prescriptions: New sucralfate [Carafate] 1 gram tablet 1 g PO Q6H 28 Days Qty: 112 RF: 0 lansoprazole 15 mg capsule,delayed release(DR/EC) 15 mg PO BID 30 Days Qty: 60 RF: 0 Continued meclizine 25 mg tablet 25 mg PO TID PRN (Reason: dizziness) Qty: 10 RF: 0 loratadine [Claritin] 10 mg tablet 10 mg PO DAILY RF: 0 fluticasone propionate [Allergy Relief (fluticasone)] 50 mcg/actuation spray,suspension 1 sprays INTNAS DAILY 14 Days Qty: 9.9 RF: 0 melatonin 1 mg Tablet 1 mg PO HS RF: 0 multivitamin Tablet 1 tab PO QAM RF: 0 cholecalciferol (vitamin D3) [Vitamin D3] 2,000 unit Capsule 2,000 unit PO QAM RF: 0 magnesium oxide 250 mg magnesium Tablet 250 mg PO HS RF: 0 famotidine [Pepcid] 20 mg Tablet 20 mg PO DAILY RF: 0 rizatriptan 5 mg tablet 5 mg PO UD PRN (Reason: Headache) RF: 0 benzonatate 100 mg capsule 100 mg PO TID PRN (Reason: cough) Qty: 30 RF: 0 Discontinued dexamethasone 6 mg tablet 12 mg PO DAILY RF: 0 pantoprazole 40 mg tablet,delayed release (DR/EC) 40 mg PO DAILY RF: 0 Discharge Orders: Discharge Order (Routine); Ordered 07/13/21 Ordered By: Soledad Shelley Admission Data Admit Date/Time: 07/05/21 17:31 Attending Provider: Soledad Shelley Admit Provider: Shree Bear Primary Care Provider: Angela Raza Other Providers: Shree Bear ; Buddy Braxton ; David Fay ; Leanna Olsen ; Tiffanie Leslie ; Maile Treadwell ; Alice Reynaga ; Asya Ambrosio ; Kati Dillon ; Lyssa Brasher ; Jethro Hardin ; Joseph Duong Other Interventions: Discharge Summary Assessment (RN) Last Done: 07/13/21 14:26
[2021-07-13 16:09] VITALS: BP 129/83
== END 2021-07-13 17:28 | disposition home or self-care (01) | DRG 178 ==
LOC: EDINP 12:53 → ED 12:53 → EDINP 07-05 00:45 → 2W 07-05 12:12 → SUATTDRO 07-05 17:31

== ENCOUNTER 2021-07-27 17:18 | Observation (INO) ==
[2021-07-27 18:11] LABS: Basophils # (auto) 0.02 K/uL (0-0.2); Basophils % (auto) 0.2 %; Eosinophils # (auto) 0.27 K/uL (0-0.5); Eosinophils % (auto) 2.9 %; Hematocrit (blood only) 38.9 % (37-47); Hemoglobin 12.4 g/dL (12.0-16.0); Immature Granulocytes # (auto) 0.06 K/uL (0.00-0.02); Immature Granulocytes % (auto) 0.7 %; Lymphocytes # (auto) 2.23 K/uL (1.2-3.4); Lymphocytes % (auto) 24.3 %; Mean Corpuscular Hemoglobin 28.2 pg (25-34); Mean Corpuscular Hgb Conc 31.9 g/dL (32-36); Mean Corpuscular Volume 88.6 fL (80-100); Mean Platelet Volume 9.5 fL (7.4-10.4); Monocytes # (auto) 0.36 K/uL (0.11-0.59); Monocytes % (auto) 3.9 %; Neutrophils # (auto) 6.23 K/uL (1.4-6.5); Platelet Count 401 K/uL (130-400); RDW Coefficient of Variation 14.6 % (11.5-14.5); RDW Standard Deviation 47.3 fL (36.4-46.3); Red Blood Count 4.39 M/uL (4.2-5.4); White Blood Count 9.17 K/uL (4.8-10.8)
--- NOTE | 2021-07-27 18:19 | XRay Report ---
XR chest 1V portable CLINICAL HISTORY: Chest Pain. COMPARISON STUDY: 07/04/2021 TECHNIQUE: 1 view of the chest FINDINGS: Single frontal view of the chest demonstrates the cardiomediastinal silhouette to be within normal li mits. A cardiac device is superimposed over the chest. The lungs are clear of alveolar opacities. The re is no evidence for pleural effusion. There is no evidence for vascular congestion. There is no acu te osseous pathology. IMPRESSION: No acute cardiopulmonary disease. ACT 112: Negative or not required by law. Electronically signed by: Bharath Melton M.D. 07/27/2021 6:17 PM
[2021-07-27 18:25] LABS: Partial Thromboplastin Ratio 1.2; Partial Thromboplastin Time 32.8 Seconds (21.0-31.0); Prothrombin Time 9.7 Seconds (9.0-12.0)
[2021-07-27 18:34] LABS: Troponin I < 0.03 ng/ml (0-0.04)
[2021-07-27 18:36] LABS: Alanine Aminotransferase 39 U/L (7-52); Albumin Globulin Ratio 1.2 (0.9-2); Albumin Level 4.2 gm/dl (3.4-5.0); Alkaline Phosphatase 113 U/L (34-104); Anion Gap 9 (3-11); Aspartate Aminotransferase 25 U/L (13-39); BUN Creatinine Ratio 12.7 (10-20); Bilirubin,Total 0.4 mg/dl (0.2-1.0); Blood Urea Nitrogen 8 mg/dl (6-23); Calcium 9.4 mg/dl (8.5-10.1); Carbon Dioxide 22 mmol/L (21-32); Chloride 106 mmol/L (98-107); Creatinine Clr Calc Pharmacy 150.4 ml/min; Est GFR (African American) 136.6 ml/min; Est GFR (Non-African American) 117.9 ml/min; Globulin 3.4 gm/dl (2.5-4.0); Glucose 94 mg/dl (70-99(Fasting)); Sodium 137 mmol/L (136-145); Total Protein 7.6 gm/dl (6.0-8.3)
--- NOTE | 2021-07-27 23:12 | Emergency Department Note ---
History of Present Illness General Chief complaint: Chest Pain Stated complaint: CHEST PAIN, LIGHT HEADED, EKG ABDNORMAL AT DR Time Seen by Provider: 07/27/21 22:00 History of Present Illness Maximum Pain Intensity: 7 This 35-year-old female patient presents to the emergency department today for evaluation of chest pain. Symptoms ongoing for several months, but worsened over the past 2 to 3 weeks since she had COVID-19 and was admitted to the hospital. The patient states her pain is significantly worse with ambulating and that she is having difficulty walking across her house without 10/10 chest pain. She denies any associated shortness of breath. She has had some right leg pain, but no swelling. She is currently following with her PCP and cardiology regarding the chest pain and is scheduled for a tilt table test due to some lightheadedness she has been experiencing for a while to be completed next week. The patient states her PCP sent her in because her QT was longer than it normally is and her last troponin was "detectable "with a higher value than previously. Patient rates her current pain a 7/10. She describes a dull aching with sharp pain in the mid to left side of her chest. Denies any associated fever or illness. She has been taking her Protonix without relief of her symptoms. She states "it feels different than my reflux". Home Medications Medication Instructions Recorded Confirmed Type melatonin 1 mg tablet 1 mg PO HS 03/27/18 07/27/21 History multivitamin 1 tab PO QAM 03/27/18 07/27/21 History cholecalciferol (vitamin D3) 50 2,000 unit PO QAM 04/19/19 07/27/21 History mcg (2,000 unit) capsule (Vitamin D3) fluticasone propionate 50 1 sprays INTNAS DAILY 14 Days #9.9 04/28/19 07/27/21 Rx mcg/actuation nasal ml spray,suspension (Allergy Relief (fluticasone)) magnesium oxide 250 mg PO HS 05/19/19 07/27/21 History loratadine 10 mg tablet (Claritin) 10 mg PO DAILY 03/21/20 07/27/21 History meclizine 25 mg tablet 25 mg PO TID PRN #10 tab 12/05/20 07/27/21 Rx famotidine 20 mg tablet (Pepcid) 20 mg PO DAILY 06/24/21 07/27/21 History benzonatate 100 mg capsule 100 mg PO TID PRN #30 cap 07/04/21 07/27/21 Rx rizatriptan 5 mg tablet 5 mg PO UD PRN 07/04/21 07/27/21 History sucralfate 1 gram tablet (Carafate) 1 g PO Q6H 28 Days #112 tab 07/13/21 07/27/21 Rx pantoprazole 40 mg tablet,delayed 40 mg PO BID 30 Days #60 tab 07/17/21 07/27/21 Rx release Allergies Allergy/AdvReac Type Severity Reaction Status Date / Time amoxicillin Allergy Severe ANAPHYLAXIS Verified 07/27/21 22:28 clavulanic acid Allergy Severe ANAPHYLAXIS Verified 07/27/21 22:28 Iodinated Contrast Media Allergy Severe Hives, Verified 07/27/21 22:28 tongue swelling doxycycline Allergy Intermediate Rash Verified 07/27/21 22:28 sulfamethoxazole Allergy Intermediate tongue Verified 07/27/21 22:28 [From Bactrim] swelling trimethoprim [From Bactrim] Allergy Intermediate tongue Verified 07/27/21 22:28 swelling metronidazole Allergy Mild rash Verified 07/27/21 22:28 coffee (Coffea arabica) Allergy Unknown per Verified 07/27/21 22:28 allergy testing Penicillins Allergy Unknown per Verified 07/27/21 22:28 allergy testing egg Allergy Hives Verified 07/27/21 22:28 fish derived Allergy Hives Verified 07/27/21 22:28 Past Med/Surg History Medical History Abnormal EEG Ankylosing spondylitis Anxiety and depression Change in vision Chest pain COVID-19 Degenerative disc disease DVT (deep venous thrombosis) Eustachian tube dysfunction Fatigue GERD (gastroesophageal reflux disease) Heart palpitations High cholesterol History of bradycardia History of bulimia History of pre-eclampsia Insomnia Iron deficiency anemia Migraine Morbid obesity with BMI of 40.0-44.9, adult Seasonal allergies Thoracic disc disease Vitamin B12 deficiency Vitamin D deficiency Surgical History History of cardiac cath 06/2015 @ [facility] [place]--d/t chest pain, normal no stents History of cholecystectomy History of esophagogastroduodenoscopy (EGD) History of wisdom tooth extraction Family History Father Hypertension Mother Diabetes Grandfather (Maternal) Diabetes Coronary heart disease Myocardial infarction Congestive heart failure Colorectal cancer Grandfather (Paternal) Diabetes Coronary heart disease Myocardial infarction, Onset Age: 50 Grandmother (Paternal) Pulmonary emphysema Sick sinus syndrome Diabetes Pacemaker Grandmother (Maternal) Family history of diabetes mellitus Aunt Pulmonary emphysema Family/Other Myocardial infarction, Onset Age: 37 Coronary heart disease Uncle Stroke Other Asthma Lymphoma No family history of adverse response to anesthesia Denies family history of Ovarian cancer Prostate cancer Breast cancer Social History Smoking Status: Never smoker Tobacco Type: Cigarettes Second Hand Exposure: No; Hx Alcohol Use: No Hx Substance Use: No Preferred Language: Syrian Communication Ability: Effective Visual Impairment: No Limitations Hearing Ability: Normal [place] Operator Required: No Beliefs That Will Affect Care: None marital status: Current Living Situation: Family Current Living Situation Comment: Lives with and daughter current occupational status: unemployed Feels Safe at Home: Yes Childhood Exposure to Second-Hand Smoke: Yes caffeine: No during the past year weight has: remained stable Dental Care, Regularly: Yes Physical Activity Frequency: 5-6 Times per Week Seatbelt Use: never Sunscreen Use: Yes Assistive Devices: None Review of Systems A total of 10 systems reviewed and were otherwise negative Physical Exam Vital Signs Vital Signs - 24 hr 07/27/21 17:25 07/27/21 22:30 07/27/21 22:54 Temperature 36.7 C Temperature Source Temporal Artery Scan Pulse Rate 97 H 88 Pulse Rate [Finger] 85 Respiratory Rate 20 18 18 Respiratory Depth Normal Respiratory Pattern Regular Blood Pressure 176/120 H Blood Pressure [Right Arm] 127/83 Blood Pressure Mean 138 Blood Pressure Mean [Right Arm] 97 Blood Pressure Position [Right Arm] Sitting Pulse Oximetry 99 100 100 Oxygen Delivery Method Room Air Room Air Room Air Sepsis Recent Fever Within 48 Hours No Sepsis New/Unexplained Change in Mental Status No Sepsis Action Taken by Nursing No Action Required 07/28/21 00:30 Temperature Temperature Source Pulse Rate Pulse Rate [Finger] 85 Respiratory Rate 18 Respiratory Depth Respiratory Pattern Blood Pressure Blood Pressure [Right Arm] 138/93 Blood Pressure Mean Blood Pressure Mean [Right Arm] 108 Blood Pressure Position [Right Arm] Lying Pulse Oximetry 99 Oxygen Delivery Method Room Air Sepsis Recent Fever Within 48 Hours Sepsis New/Unexplained Change in Mental Status Sepsis Action Taken by Nursing VITALS: Vitals are noted on the nurse's note and reviewed by myself. Vital signs stable. GENERAL: This is a 35-year-old white female, in no acute distress, nondiaphoretic, well-developed well-nourished. SKIN: The skin was without rashes, erythema, edema, or bruising. There is no tenting of the skin. Capillary refill less than 2 seconds. HEAD: Normocephalic atraumatic. EYES: Conjunctivae without injection, sclerae without icterus. NECK: Supple without nuchal rigidity. No lymphadenopathy. No thyromegaly. Cervical spine is nontender. No JVD. HEART: Regular rate and rhythm without murmurs gallops or rubs. LUNGS: Clear to auscultation bilaterally without wheezes, rales or rhonchi. No retractions or accessory muscle use. ABDOMEN: Positive bowel sounds x 4. Normal tympanic percussion. Soft, nontender, without masses or organomegaly. Leslie sign negative. No guarding or rebound tenderness. MUSCULOSKELETAL: No muscle atrophy, erythema, or edema noted. Full range of motion without joint tenderness in all extremities. No tenderness to palpation. Normal gait. Strength 5/5 throughout. Negative Homans' sign bilaterally. NEURO: Patient was alert and oriented to person place and time. No focal neurological deficits. Course Course The patient was seen and evaluated as above. An order was placed for continuous cardiac monitoring. The monitor shows a normal sinus rhythm at a rate of 88 bpm. IV access obtained, labs drawn. Imaging performed and reviewed by myself and radiologist as noted. Labs reviewed by myself. I discussed the findings with the patient at bedside. Repeat troponin and EKG ordered. Repeat EKG was not completed by nursing staff. I discussed the case with my attending. I discussed case with the travel agency manager. I discussed the case with Dr. Olsen, [facility] physician. He did agree to see and evaluate the patient for admission. Administered Medications Sodium Chloride (Nss 1000ml) 1,000 mls @ 60 mls/hr IV .[id number] ANNA Stop: 08/27/21 03:30 Last Admin: 07/28/21 04:24 Dose: 60 mls/hr Documented by: [id number] Discontinued Medications Aspirin (Aspirin Chew 324 Mg) 324 mg PO NOW STA Stop: 07/28/21 02:20 Last Admin: 07/28/21 02:23 Dose: 324 mg Documented by: [id number] Nitroglycerin (Nitroglycerin Sl 0.4 Mg/Tab Tab) 0.4 mg SL NOW STA Stop: 07/28/21 00:36 Last Admin: 07/28/21 00:58 Dose: 0.4 mg Documented by: [id number] Medical Decision Making Differential Diagnosis Cardiac ischemia, aortic dissection, pulmonary embolism, pneumothorax, pneumonia, pericarditis, myocarditis, esophageal rupture, GERD, cholecystitis, pancreatitis, musculoskeletal, as well as other pathologies. Medical Records Attestation: I reviewed the patient's medical records. Home Medications Current Medication List: was personally reviewed by me Laboratory Data Attestation: I reviewed the patient's lab results. No leukocytosis, anemia, thrombocytopenia. Renal, hepatic function, and electrolytes without significant abnormality. INR 1.0. Troponin negative x2. COVID-19 testing negative. Result diagrams: 07/27/21 18:00 07/27/21 18:00 Lab Results 07/27/21 07/27/21 07/27/21 Range/Units 18:00 18:00 18:00 WBC 9.17 (4.8-10.8) K/uL RBC 4.39 (4.2-5.4) M/uL Hgb 12.4 (12.0-16.0) g/dL Hct 38.9 (37-47) % MCV 88.6 (80-100) fL MCH 28.2 (25-34) pg MCHC 31.9 L (32-36) g/dL RDW Std Deviation 47.3 H (36.4-46.3) fL RDW Coeff of Yash 14.6 H (11.5-14.5) % Plt Count 401 H (130-400) K/uL MPV 9.5 (7.4-10.4) fL Immature Gran % (Auto) 0.7 % Neut % (Auto) 68.0 % Lymph % (Auto) 24.3 % [place] % (Auto) 3.9 % Eos % (Auto) 2.9 % Baso % (Auto) 0.2 % Neut # (Auto) 6.23 (1.4-6.5) K/uL Lymph # (Auto) 2.23 (1.2-3.4) K/uL [place] # (Auto) 0.36 (0.11-0.59) K/uL Eos # (Auto) 0.27 (0-0.5) K/uL Baso # (Auto) 0.02 (0-0.2) K/uL Immature Gran # (Auto) 0.06 H (0.00-0.02) K/uL PT 9.7 (9.0-12.0) Seconds INR 1.0 (0.9-1.1) APTT 32.8 H (21.0-31.0) Seconds PTT Ratio 1.2 D-Dimer (0-500) ug/L FEU Sodium 137 (136-145) mmol/L Potassium 4.0 (3.5-5.1) mmol/L Chloride 106 (98-107) mmol/L Carbon Dioxide 22 (21-32) mmol/L Anion Gap 9 (3-11) BUN 8 (6-23) mg/dl Creatinine 0.63 (0.6-1.2) mg/dl Est Cr Clr Drug Dosing 150.4 ml/min Est GFR ( Amer) 136.6 ml/min Est GFR (Non-Af Amer) 117.9 ml/min BUN/Creatinine Ratio 12.7 (10-20) Glucose 94 (70-99(Fasting)) mg/dl Calcium 9.4 (8.5-10.1) mg/dl Magnesium (1.7-2.4) mg/dl Total Bilirubin 0.4 (0.2-1.0) mg/dl AST 25 (13-39) U/L ALT 39 (7-52) U/L Alkaline Phosphatase 113 H (34-104) U/L Troponin I < 0.03 (0-0.04) ng/ml Total Protein 7.6 (6.0-8.3) gm/dl Albumin 4.2 (3.4-5.0) gm/dl Globulin 3.4 (2.5-4.0) gm/dl Albumin/Globulin Ratio 1.2 (0.9-2) SARS-CoV-2, RNA, NAAT (NEGATIVE) 07/27/21 07/27/21 07/27/21 Range/Units 22:45 22:49 22:55 WBC (4.8-10.8) K/uL RBC (4.2-5.4) M/uL Hgb (12.0-16.0) g/dL Hct (37-47) % MCV (80-100) fL MCH (25-34) pg MCHC (32-36) g/dL RDW Std Deviation (36.4-46.3) fL RDW Coeff of Yash (11.5-14.5) % Plt Count (130-400) K/uL MPV (7.4-10.4) fL Immature Gran % (Auto) % Neut % (Auto) % Lymph % (Auto) % [place] % (Auto) % Eos % (Auto) % Baso % (Auto) % Neut # (Auto) (1.4-6.5) K/uL Lymph # (Auto) (1.2-3.4) K/uL [place] # (Auto) (0.11-0.59) K/uL Eos # (Auto) (0-0.5) K/uL Baso # (Auto) (0-0.2) K/uL Immature Gran # (Auto) (0.00-0.02) K/uL PT (9.0-12.0) Seconds INR (0.9-1.1) APTT (21.0-31.0) Seconds PTT Ratio D-Dimer (0-500) ug/L FEU Sodium (136-145) mmol/L Potassium (3.5-5.1) mmol/L Chloride (98-107) mmol/L Carbon Dioxide (21-32) mmol/L Anion Gap (3-11) BUN (6-23) mg/dl Creatinine (0.6-1.2) mg/dl Est Cr Clr Drug Dosing ml/min Est GFR ( Amer) ml/min Est GFR (Non-Af Amer) ml/min BUN/Creatinine Ratio (10-20) Glucose (70-99(Fasting)) mg/dl Calcium (8.5-10.1) mg/dl Magnesium 2.1 (1.7-2.4) mg/dl Total Bilirubin (0.2-1.0) mg/dl AST (13-39) U/L ALT (7-52) U/L Alkaline Phosphatase (34-104) U/L Troponin I < 0.03 (0-0.04) ng/ml Total Protein (6.0-8.3) gm/dl Albumin (3.4-5.0) gm/dl Globulin (2.5-4.0) gm/dl Albumin/Globulin Ratio (0.9-2) SARS-CoV-2, RNA, NAAT NEGATIVE (NEGATIVE) 07/27/21 Range/Units 23:13 WBC (4.8-10.8) K/uL RBC (4.2-5.4) M/uL Hgb (12.0-16.0) g/dL Hct (37-47) % MCV (80-100) fL MCH (25-34) pg MCHC (32-36) g/dL RDW Std Deviation (36.4-46.3) fL RDW Coeff of Yash (11.5-14.5) % Plt Count (130-400) K/uL MPV (7.4-10.4) fL Immature Gran % (Auto) % Neut % (Auto) % Lymph % (Auto) % [place] % (Auto) % Eos % (Auto) % Baso % (Auto) % Neut # (Auto) (1.4-6.5) K/uL Lymph # (Auto) (1.2-3.4) K/uL [place] # (Auto) (0.11-0.59) K/uL Eos # (Auto) (0-0.5) K/uL Baso # (Auto) (0-0.2) K/uL Immature Gran # (Auto) (0.00-0.02) K/uL PT (9.0-12.0) Seconds INR (0.9-1.1) APTT (21.0-31.0) Seconds PTT Ratio D-Dimer 370 (0-500) ug/L FEU Sodium (136-145) mmol/L Potassium (3.5-5.1) mmol/L Chloride (98-107) mmol/L Carbon Dioxide (21-32) mmol/L Anion Gap (3-11) BUN (6-23) mg/dl Creatinine (0.6-1.2) mg/dl Est Cr Clr Drug Dosing ml/min Est GFR ( Amer) ml/min Est GFR (Non-Af Amer) ml/min BUN/Creatinine Ratio (10-20) Glucose (70-99(Fasting)) mg/dl Calcium (8.5-10.1) mg/dl Magnesium (1.7-2.4) mg/dl Total Bilirubin (0.2-1.0) mg/dl AST (13-39) U/L ALT (7-52) U/L Alkaline Phosphatase (34-104) U/L Troponin I (0-0.04) ng/ml Total Protein (6.0-8.3) gm/dl Albumin (3.4-5.0) gm/dl Globulin (2.5-4.0) gm/dl Albumin/Globulin Ratio (0.9-2) SARS-CoV-2, RNA, NAAT (NEGATIVE) Imaging Data Radiologist's Impression: Chest X-Ray 07/27/21 17:28 XR chest 1V portable CLINICAL HISTORY: Chest Pain. COMPARISON STUDY: 07/04/2021 TECHNIQUE: 1 view of the chest FINDINGS: Single frontal view of the chest demonstrates the cardiomediastinal silhouette to be within normal limits. A cardiac device is superimposed over the chest. The lungs are clear of alveolar opacities. There is no evidence for pleural effusion. There is no evidence for vascular congestion. There is no acute osseous pathology. IMPRESSION: No acute cardiopulmonary disease. ACT 112: Negative or not required by law. Electronically signed by: Bharath Melton M.D. 07/27/2021 6:17 PM ECG Data Attestation: I personally reviewed and interpreted this ECG as follows: Indication: + chest pain Rate (beats per minute): 87 Rhythm: + normal sinus ECG Intervals/blocks: + Normal QT (400) and + Normal QT-c (481) ECG [place]: + Normal ECG ST segments: no ST depression, no ST elevation or no T-wave inversions Comparison ECG Date: no prior available Change: no significant change Blood Pressure Blood Pressure Findings: Normal blood pressure MDM Narrative This 35-year-old female patient presents to the emergency department today for evaluation of chest pain. This has been ongoing for several months, but worsening since she was admitted with COVID-19. Patient had negative cardiac work-up completed here in the ED to include EKG and troponin. She was referred here by her PCP due to QT being longer than previous EKGs. PCP was also concerned that troponin is now reading less than 0.03 instead of less than 0.015. Patient states her chest pain is severe. She states she cannot walk across her house without her pain increasing to 10/10. She does not feel that it is resolving and would like to be further evaluated as an inpatient. I feel that this is reasonable and discussed with the patient the potential need to have a stress test completed. [facility] Please see hospitalist dictation regarding ongoing management and care of this patient. The chart was completed utilizing [employer] voice recognition software. Grammatical errors, random word insertions, pronoun errors, and incomplete sentences are an occasional consequence of this system due to software limitations, ambient noise, and hardware issues. Any formal questions or concerns about the content, text, or information contained within the body of t his dictation should be directly addressed to the provider for clarification. Impression & Plan Chest pain, Dizziness Discharge Plan Visit Data Chief Complaint: Chest Pain Stated Complaint: CHEST PAIN, LIGHT HEADED, EKG ABDNORMAL AT DR ED Provider: Fabio Baker ED Midlevel Provider: Ludy Reyes Discharge Problem: Chest pain, Dizziness Patient Disposition: Admitted As Inpatient Discharge Instructions Interventions: ED Discharge Assessment Last Done: 07/28/21 03:05
[2021-07-27 23:59] LABS: D Dimer 370 ug/L FEU (0-500)
[2021-07-28] MEDS ORDERED: NITROGLYCERIN SL 0.4 MG/TAB TAB SL STA (00:35)
--- NOTE | 2021-07-28 02:16 | History & Physical Report ---
Date of Service July 28, 2021 Assessment & Plan (1) Chest pain: Plan: Chest pain Rule out ACS given improvement with nitroglycerin and factors hx inappropriate sinus tachycardia as per records, beta-jairo stopped due to low BP asthma, stable fibromyalgia/ankylosing spondylitis as per records prediabetes as per patient, hemoglobin A1c of 5.6 last May, past tobacco abuse OBS PCU Aspirin for CAD prevention until ACS ruled out Follow troponin Cardiology consult Re: Chest pain N.p.o. until patient seen by cardiology in anticipation of procedure DVT prophylaxis per Lovenox subcu Full code Text document was generated using [employer] recognition software. It may contain grammatical or spelling errors. Kindly contact undersigned for clarification of any documentation item in question. History of Present Illness Chief Complaint: Chest pain Primary Care Provider: Angela Arevalo MD History obtained from patient and records. Medical history significant for inappropriate sinus tachycardia, hyperlipidemia, history lower extremity DVT status post anticoagulation, asthma, HUGO, GERD, fibromyalgia, ankylosing spondylitis, prediabetes as per patient, past tobacco abuse. Last confinement 3 weeks ago for COVID-19 illness and lightheadedness attributed to possible Mnire's. Patient also presented with chest pain complaints. Echo showed no wall motion abnormalities. No pericardial effusion. Chest pain attributed to possible GERD recent high-dose Decadron. PPI increased and patient discharged on sucralfate. Since discharge from the hospital, central chest pain worsening. Different from reflux as per patient chest pain going to the neck and arms. Nonpleuritic. Some shortness of breath without unusual cough symptoms. Palpitations and lightheadedness as per patient. Patient evaluated at PCPs office today. Patient directed to ER for abnormal EKG. Chest pain improved by nitroglycerin administration at the ER. 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 Allergies Allergy/AdvReac Type Severity Reaction Status Date / Time amoxicillin Allergy Severe ANAPHYLAXIS Verified 07/27/21 22:28 clavulanic acid Allergy Severe ANAPHYLAXIS Verified 07/27/21 22:28 Iodinated Contrast Media Allergy Severe Hives, Verified 07/27/21 22:28 tongue swelling doxycycline Allergy Intermediate Rash Verified 07/27/21 22:28 sulfamethoxazole Allergy Intermediate tongue Verified 07/27/21 22:28 [From Bactrim] swelling trimethoprim [From Bactrim] Allergy Intermediate tongue Verified 07/27/21 22:28 swelling metronidazole Allergy Mild rash Verified 07/27/21 22:28 coffee (Coffea arabica) Allergy Unknown per Verified 07/27/21 22:28 allergy testing Penicillins Allergy Unknown per Verified 07/27/21 22:28 allergy testing egg Allergy Hives Verified 07/27/21 22:28 fish derived Allergy Hives Verified 07/27/21 22:28 Home Medications Medication Instructions Recorded Confirmed Type melatonin 1 mg tablet 1 mg PO HS 03/27/18 07/27/21 History multivitamin 1 tab PO QAM 03/27/18 07/27/21 History cholecalciferol (vitamin D3) 50 2,000 unit PO QAM 04/19/19 07/27/21 History mcg (2,000 unit) capsule (Vitamin D3) fluticasone propionate 50 1 sprays INTNAS DAILY 14 Days #9.9 04/28/19 07/27/21 Rx mcg/actuation nasal ml spray,suspension (Allergy Relief (fluticasone)) magnesium oxide 250 mg PO HS 05/19/19 07/27/21 History loratadine 10 mg tablet (Claritin) 10 mg PO DAILY 03/21/20 07/27/21 History meclizine 25 mg tablet 25 mg PO TID PRN #10 tab 12/05/20 07/27/21 Rx famotidine 20 mg tablet (Pepcid) 20 mg PO DAILY 06/24/21 07/27/21 History benzonatate 100 mg capsule 100 mg PO TID PRN #30 cap 07/04/21 07/27/21 Rx rizatriptan 5 mg tablet 5 mg PO UD PRN 07/04/21 07/27/21 History sucralfate 1 gram tablet (Carafate) 1 g PO Q6H 28 Days #112 tab 07/13/21 07/27/21 Rx pantoprazole 40 mg tablet,delayed 40 mg PO BID 30 Days #60 tab 07/17/21 07/27/21 Rx release Past Med/Surg History Medical History Abnormal EEG Ankylosing spondylitis Anxiety and depression Change in vision Chest pain COVID-19 Degenerative disc disease DVT (deep venous thrombosis) Eustachian tube dysfunction Fatigue GERD (gastroesophageal reflux disease) Heart palpitations High cholesterol History of bradycardia History of bulimia History of pre-eclampsia Insomnia Iron deficiency anemia Migraine Morbid obesity with BMI of 40.0-44.9, adult Seasonal allergies Thoracic disc disease Vitamin B12 deficiency Vitamin D deficiency Surgical History History of cardiac cath 06/2015 @ [facility] [place]--d/t chest pain, normal no stents History of cholecystectomy History of esophagogastroduodenoscopy (EGD) History of wisdom tooth extraction Family History Father Hypertension Mother Diabetes Grandfather (Maternal) Diabetes Coronary heart disease Myocardial infarction Congestive heart failure Colorectal cancer Grandfather (Paternal) Diabetes Coronary heart disease Myocardial infarction, Onset Age: 50 Grandmother (Paternal) Pulmonary emphysema Sick sinus syndrome Diabetes Pacemaker Grandmother (Maternal) Family history of diabetes mellitus Aunt Pulmonary emphysema Family/Other Myocardial infarction, Onset Age: 37 Coronary heart disease Uncle Stroke Other Asthma Lymphoma No family history of adverse response to anesthesia Denies family history of Ovarian cancer Prostate cancer Breast cancer Social History Smoking Status: Never smoker Tobacco Type: Cigarettes Second Hand Exposure: No; Do You Dip or Chew Tobacco: No; Hx Alcohol Use: No Hx Substance Use: No Preferred Language: Mongolian Communication Ability: Effective Communication Tools: Other Visual Impairment: No Limitations Hearing Ability: Normal Certified Registered Locksmith Required: Yes Beliefs That Will Affect Care: None marital status: Current Living Situation: Spouse and Family Current Living Situation Comment: Lives with and daughter current occupational status: unemployed Feels Safe at Home: Yes Safety Concerns: Feels Safe At This Time Childhood Exposure to Second-Hand Smoke: Yes caffeine: No during the past year weight has: remained stable Dental Care, Regularly: Yes Physical Activity Frequency: 5-6 Times per Week Seatbelt Use: never Sunscreen Use: Yes Assistive Devices: None Review of Systems Review of Systems: As per HPI, all 10 systems reviewed, all other ROS negative Physical Exam Physical Exam: GENERAL: Slightly anxious, morbidly obese, no respiratory distress SKIN: Normal color, warm HEENT: Bespectacled, pink palpebral conjunctivae, no ptosis, moist buccal mucosa NECK : Supple, short neck, no tenderness CHEST : CTA, no tenderness HEART : RRR, no obvious murmurs ABDOMEN: Some distention, nontender EXTREMITIES : Minimal LE swelling, no LE tenderness, no other conspicuous deformities noted NEUROLOGIC : Coherent, no facial asymmetry, gait and stance not assessed Results & Data Results & Data ([facility]) Vital Signs (Past 12 Hours) Vital Signs Temp Pulse Pulse Resp BP BP Pulse Ox 07/28/21 00:30 85 18 138/93 99 07/27/21 22:54 88 18 100 07/27/21 22:30 85 18 127/83 100 07/27/21 17:25 36.7 C 97 H 20 176/120 H 99 Laboratory Results Laboratory Results WBC 9.17 K/uL (4.8-10.8) 07/27/21 18:00 RBC 4.39 M/uL (4.2-5.4) 07/27/21 18:00 Hgb 12.4 g/dL (12.0-16.0) 07/27/21 18:00 Hct 38.9 % (37-47) 07/27/21 18:00 MCV 88.6 fL (80-100) 07/27/21 18:00 MCH 28.2 pg (25-34) 07/27/21 18:00 MCHC 31.9 g/dL (32-36) L 07/27/21 18:00 RDW Std Deviation 47.3 fL (36.4-46.3) H 07/27/21 18:00 RDW Coeff of Yash 14.6 % (11.5-14.5) H 07/27/21 18:00 Plt Count 401 K/uL (130-400) H 07/27/21 18:00 MPV 9.5 fL (7.4-10.4) 07/27/21 18:00 Immature Gran % (Auto) 0.7 % 07/27/21 18:00 Neut % (Auto) 68.0 % 07/27/21 18:00 Lymph % (Auto) 24.3 % 07/27/21 18:00 [place] % (Auto) 3.9 % 07/27/21 18:00 Eos % (Auto) 2.9 % 07/27/21 18:00 Baso % (Auto) 0.2 % 07/27/21 18:00 Neut # (Auto) 6.23 K/uL (1.4-6.5) 07/27/21 18:00 Lymph # (Auto) 2.23 K/uL (1.2-3.4) 07/27/21 18:00 [place] # (Auto) 0.36 K/uL (0.11-0.59) 07/27/21 18:00 Eos # (Auto) 0.27 K/uL (0-0.5) 07/27/21 18:00 Baso # (Auto) 0.02 K/uL (0-0.2) 07/27/21 18:00 Immature Gran # (Auto) 0.06 K/uL (0.00-0.02) H 07/27/21 18:00 PT 9.7 Seconds (9.0-12.0) 07/27/21 18:00 INR 1.0 (0.9-1.1) 07/27/21 18:00 APTT 32.8 Seconds (21.0-31.0) H 07/27/21 18:00 PTT Ratio 1.2 07/27/21 18:00 D-Dimer 370 ug/L FEU (0-500) 07/27/21 23:13 Sodium 137 mmol/L (136-145) 07/27/21 18:00 Potassium 4.0 mmol/L (3.5-5.1) 07/27/21 18:00 Chloride 106 mmol/L (98-107) 07/27/21 18:00 Carbon Dioxide 22 mmol/L (21-32) 07/27/21 18:00 Anion Gap 9 (3-11) 07/27/21 18:00 BUN 8 mg/dl (6-23) 07/27/21 18:00 Creatinine 0.63 mg/dl (0.6-1.2) 07/27/21 18:00 Est Cr Clr Drug Dosing 150.4 ml/min 07/27/21 18:00 Est GFR ( Amer) 136.6 ml/min 07/27/21 18:00 Est GFR (Non-Af Amer) 117.9 ml/min 07/27/21 18:00 BUN/Creatinine Ratio 12.7 (10-20) 07/27/21 18:00 Glucose 94 mg/dl (70-99(Fasting)) 07/27/21 18:00 Calcium 9.4 mg/dl (8.5-10.1) 07/27/21 18:00 Total Bilirubin 0.4 mg/dl (0.2-1.0) 07/27/21 18:00 AST 25 U/L (13-39) 07/27/21 18:00 ALT 39 U/L (7-52) 07/27/21 18:00 Alkaline Phosphatase 113 U/L (34-104) H 07/27/21 18:00 Troponin I < 0.03 ng/ml (0-0.04) 07/27/21 22:45 Total Protein 7.6 gm/dl (6.0-8.3) 07/27/21 18:00 Albumin 4.2 gm/dl (3.4-5.0) 07/27/21 18:00 Globulin 3.4 gm/dl (2.5-4.0) 07/27/21 18:00 Albumin/Globulin Ratio 1.2 (0.9-2) 07/27/21 18:00 SARS-CoV-2, RNA, NAAT NEGATIVE (NEGATIVE) 07/27/21 22:55 Impressions Chest X-Ray 07/27/21 17:28 XR chest 1V portable CLINICAL HISTORY: Chest Pain. COMPARISON STUDY: 07/04/2021 TECHNIQUE: 1 view of the chest FINDINGS: Single frontal view of the chest demonstrates the cardiomediastinal silhouette to be within normal limits. A cardiac device is superimposed over the chest. The lungs are clear of alveolar opacities. There is no evidence for pleural effusion. There is no evidence for vascular congestion. There is no acute osseous pathology. IMPRESSION: No acute cardiopulmonary disease. ACT 112: Negative or not required by law. Electronically signed by: Bharath Melton M.D. 07/27/2021 6:17 PM Diagnostic Findings EKG as per my impression: Rate 85, NSR, axis, diffuse T wave abnormalities
[2021-07-28] MEDS ORDERED: ASPIRIN CHEW 324 MG PO STA (02:19)
[2021-07-28] MEDS ORDERED: hydrOXYzine HCl 10 MG TAB PO PRN (02:23)
[2021-07-28] MEDS ORDERED: traMADol HCL 50 MG TABLET PO PRN (02:23)
[2021-07-28] MEDS ORDERED: PROMETHAZINE HCL 12.5 MG in SODIUM CHLORIDE 0.9% 50 ML IV PRN (02:23)
[2021-07-28] MEDS ORDERED: ACETAMINOPHEN 325 MG TAB PO PRN (02:23)
[2021-07-28] MEDS ORDERED: NITROGLYCERIN SL 0.4 MG/TAB TAB SL PRN (02:23)
[2021-07-28] MEDS ORDERED: SODIUM CHLORIDE 0.9% 1000ML 1,000 ML IV SCH (03:31)
[2021-07-28] MEDS ORDERED: MECLIZINE HCL 25 MG TAB PO PRN (04:04)
[2021-07-28 05:55] LABS: Basophils # (auto) 0.01 K/uL (0-0.2); Basophils % (auto) 0.1 %; Eosinophils % (auto) 3.5 %; Hematocrit (blood only) 36.1 % (37-47); Hemoglobin 11.3 g/dL (12.0-16.0); Immature Granulocytes # (auto) 0.03 K/uL (0.00-0.02); Immature Granulocytes % (auto) 0.3 %; Lymphocytes # (auto) 2.78 K/uL (1.2-3.4); Lymphocytes % (auto) 32.3 %; Mean Corpuscular Hemoglobin 28.3 pg (25-34); Mean Corpuscular Hgb Conc 31.3 g/dL (32-36); Mean Corpuscular Volume 90.3 fL (80-100); Mean Platelet Volume 9.5 fL (7.4-10.4); Monocytes # (auto) 0.41 K/uL (0.11-0.59); Monocytes % (auto) 4.8 %; Neutrophils # (auto) 5.07 K/uL (1.4-6.5); Platelet Count 329 K/uL (130-400); RDW Coefficient of Variation 14.9 % (11.5-14.5); RDW Standard Deviation 48.5 fL (36.4-46.3)
[2021-07-28 06:11] LABS: Partial Thromboplastin Ratio 1.2; Partial Thromboplastin Time 32.3 Seconds (21.0-31.0)
[2021-07-28 06:18] LABS: Troponin I < 0.03 ng/ml (0-0.04)
--- NOTE | 2021-07-28 07:05 | Ultrasound Report ---
RIGHT LOWER EXTREMITY VENOUS DOPPLER HISTORY: right leg pain COMPARISON STUDY: None. FINDINGS: There is normal compressibility, flow, and augmentation within the right lower extremity de ep venous system. IMPRESSION: No DVT within the right lower extremity ACT 112: Negative or not required by law. Electronically signed by: [place] M.D. 07/28/2021 7:04 AM
[2021-07-28] MEDS: SUCRALFATE 1 GM TAB PO SCH ×3 (07:42→16:14)
[2021-07-28 07:49] LABS: Anion Gap 9 (3-11); BUN Creatinine Ratio 16.4 (10-20); Blood Urea Nitrogen 11 mg/dl (6-23); Calcium 8.7 mg/dl (8.5-10.1); Carbon Dioxide 22 mmol/L (21-32); Chloride 108 mmol/L (98-107); Chol HDL Ratio 6.8 (0-5); Cholesterol 176 mg/dl (0-200); Creatinine Clr Calc Pharmacy 140.2 ml/min; Est GFR (African American) 133.9 ml/min; Est GFR (Non-African American) 115.5 ml/min; Glucose 94 mg/dl (70-99(Fasting)); HDL Cholesterol 26 mg/dl; LDL Cholesterol Calculated 120 mg/dl; Potassium 3.6 mmol/L (3.5-5.1); Sodium 139 mmol/L (136-145); Triglycerides 150 mg/dl (0-150); VLDL Cholesterol 30 mg/dl (0-30)
--- NOTE | 2021-07-28 08:10 | Cardiology Consultation ---
Date of Consultation July 28, 2021 Assessment & Plan (1) Chest pain: (2) Heart palpitations: (3) Sinus tachycardia: (4) SOB (shortness of breath): Chest pressure with activity associated with tachy palpitations, SOB, and presyncope. Notes functional decline. Symptoms started in April, worsened after COVID 06/2020. 1. Currently wearing MCOT- Report showed ONLY sinus tach, no concern arrhythmias. Working dx of inappropriate sinus tachycardia. 2. Echo to assess LV/RV systolic function as well as valvular structure, pending 3. Okay to have a diet 4. Encourage hydration, liberalizing salt/sodium in diet. 5. Start beta jairo, Initially would like to try Pindolol 2.5 mg BID with likelihood of up-titrating dose due to history of borderline hypotension in the past on metoprolol, however, this medication is non-formulary. For now will try Metoprolol tartrate 12.5 mg BID and monitor closely. (5) DVT (deep venous thrombosis): Hx DVT 2018 due to travel, Not on AC DYE Allergy- negative VQ scan 01/[address] Carrizales. Supervising Physician Co-Signing Physician Notes I have seen and examined the patient. I reviewed the medical record and discussed the case with the [employer]. This patient has a long history of atypical chest pain with multiple negative cardiac studies including a previous cardiac catheterization. She currently is wearing an MCOT for which she recorded in her diary when she was having chest pain as well as tachycardia. We reviewed the strips during those times and they all reveal normal sinus rhythm. Cardiac enzymes are negative. EKG shows nonspecific changes. We will obtain an echocardiogram and if there are no new wall motion abnormalities or other findings then I do not believe any additional cardiac testing is indicated at this time. History of Present Illness Reason for Consultation: Chest pain [facility] Attending Physician: Soledad Shelley MD History of Present Illness 35 year old female- presented with CP x several months. Notes that she had chest pain for many years, but the quality changed in april. After having covid in june symptoms intensified. Seen on 07/25 at [facility] ED with similar complaints that she is having today. Placed her on increased doses of PPI which did not help symptoms. Per the patient- psych did not think that she had anxiety. Saw PCP yesterday, EKG done in office showed SR , QTC 467. She was having chest pain when this EKG was done.Following with neuro, had an EEG and is planning on have a TTT next week (due to lightheadedness). EKG done in ED showed SR, T wave inversion in lead 3 and poor r-wave progression thru the precordium (very similar to her EKG 07/17) Pain worsens with activity- specifically ambulating. Describes it as a crushing pressures in the center of her chest. Worsening shortness of breath associated with pre-syncope. Even slight activity changes causes an increase in her heart rate to the 130-160s, feels a founding in her chest, head, ears, and hands. No Orthopnea, PND or increased lower extremity edema. Denies any associated fever or illness.She states "it feels different than my reflux". She has made lifestyle and medication changes without relief. She becomes tearful and notes that her functional capacity has declined significantly over the last month. Outpatient MCOT reviewed- triggered symptoms correlated with ONLY ST, no acute or sustained arrhythmias. Trop negative x3 Lipids: TG 150, Cholesterol 176, LDL 120, HDL 26 covid negative PMH: Palpitations- Sinus Tach Hx of DVT in 2018 due to long distance travel, per patient heme workup negative DYE ALLERGY- hives even with pretreatment VQ scan negative 01/2021 HUGO obesity ? Anxiety Hx of COvid -19, 06/2021 Normal coronary arteries per cath at at 29 (done due to Gallbladder issues) Negative stress echo 2018 (done due to GERD/sharp atypical CP) FHX: Premature CAD, cousin sudden NH required LifeVest use, GF at age 50 due to NH Allergies Allergy/AdvReac Type Severity Reaction Status Date / Time amoxicillin Allergy Severe ANAPHYLAXIS Verified 07/27/21 22:28 clavulanic acid Allergy Severe ANAPHYLAXIS Verified 07/27/21 22:28 Iodinated Contrast Media Allergy Severe Hives, Verified 07/27/21 22:28 tongue swelling doxycycline Allergy Intermediate Rash Verified 07/27/21 22:28 sulfamethoxazole Allergy Intermediate tongue Verified 07/27/21 22:28 [From Bactrim] swelling trimethoprim [From Bactrim] Allergy Intermediate tongue Verified 07/27/21 22:28 swelling metronidazole Allergy Mild rash Verified 07/27/21 22:28 coffee (Coffea arabica) Allergy Unknown per Verified 07/27/21 22:28 allergy testing Penicillins Allergy Unknown per Verified 07/27/21 22:28 allergy testing egg Allergy Hives Verified 07/27/21 22:28 fish derived Allergy Hives Verified 07/27/21 22:28 Home Medications Medication Instructions Recorded Confirmed Type melatonin 1 mg tablet 1 mg PO HS 03/27/18 07/27/21 History multivitamin 1 tab PO QAM 03/27/18 07/27/21 History cholecalciferol (vitamin D3) 50 2,000 unit PO QAM 04/19/19 07/27/21 History mcg (2,000 unit) capsule (Vitamin D3) fluticasone propionate 50 1 sprays INTNAS DAILY 14 Days #9.9 04/28/19 07/27/21 Rx mcg/actuation nasal ml spray,suspension (Allergy Relief (fluticasone)) magnesium oxide 250 mg PO HS 05/19/19 07/27/21 History loratadine 10 mg tablet (Claritin) 10 mg PO DAILY 03/21/20 07/27/21 History meclizine 25 mg tablet 25 mg PO TID PRN #10 tab 12/05/20 07/27/21 Rx famotidine 20 mg tablet (Pepcid) 20 mg PO DAILY 06/24/21 07/27/21 History benzonatate 100 mg capsule 100 mg PO TID PRN #30 cap 07/04/21 07/27/21 Rx rizatriptan 5 mg tablet 5 mg PO UD PRN 07/04/21 07/27/21 History sucralfate 1 gram tablet (Carafate) 1 g PO Q6H 28 Days #112 tab 07/13/21 07/27/21 Rx pantoprazole 40 mg tablet,delayed 40 mg PO BID 30 Days #60 tab 07/17/21 07/27/21 Rx release Patient History Medical History Abnormal EEG Ankylosing spondylitis Anxiety and depression Change in vision Chest pain COVID-19 Degenerative disc disease DVT (deep venous thrombosis) Eustachian tube dysfunction Fatigue GERD (gastroesophageal reflux disease) Heart palpitations High cholesterol History of bradycardia History of bulimia History of pre-eclampsia Insomnia Iron deficiency anemia Migraine Morbid obesity with BMI of 40.0-44.9, adult Seasonal allergies Thoracic disc disease Vitamin B12 deficiency Vitamin D deficiency Surgical History History of cardiac cath 06/2015 @ [facility] [place]--d/t chest pain, normal no stents History of cholecystectomy History of esophagogastroduodenoscopy (EGD) History of wisdom tooth extraction Family History Father Hypertension Mother Diabetes Grandfather (Maternal) Diabetes Coronary heart disease Myocardial infarction Congestive heart failure Colorectal cancer Grandfather (Paternal) Diabetes Coronary heart disease Myocardial infarction, Onset Age: 50 Grandmother (Paternal) Pulmonary emphysema Sick sinus syndrome Diabetes Pacemaker Grandmother (Maternal) Family history of diabetes mellitus Aunt Pulmonary emphysema Family/Other Myocardial infarction, Onset Age: 37 Coronary heart disease Uncle Stroke Other Asthma Lymphoma No family history of adverse response to anesthesia Denies family history of Ovarian cancer Prostate cancer Breast cancer Social History Smoking Status: Never smoker Tobacco Type: Cigarettes Second Hand Exposure: No; Do You Dip or Chew Tobacco: No; Hx Alcohol Use: No Hx Substance Use: No Preferred Language: Micronesian Communication Ability: Effective Communication Tools: Other Visual Impairment: No Limitations Hearing Ability: Normal Behavioral Health Tech Required: Yes Beliefs That Will Affect Care: None marital status: Current Living Situation: Spouse and Family Current Living Situation Comment: Lives with and daughter current occupational status: unemployed Feels Safe at Home: Yes Safety Concerns: Feels Safe At This Time Childhood Exposure to Second-Hand Smoke: Yes caffeine: No during the past year weight has: remained stable Dental Care, Regularly: Yes Physical Activity Frequency: 5-6 Times per Week Seatbelt Use: never Sunscreen Use: Yes Assistive Devices: None Review of Systems Review of Systems: All systems reviewed & are unremarkable except as noted in HPI & below Physical Exam Physical Exam: General: no acute distress and stated age Eyes: conjunctiva are pink and non-injected, sclera clear Neck: normal jugular venous pulse, no hepatojugular reflux Chest: normal shape and normal respiratory effort Lungs: clear to auscultation and percussion Cardiac Exam: - regular heart sounds, no murmurs, rubs, or gallops Abdomen: abdomen soft, non-tender, no abnormal masses and no hepatosplenomegaly Musculoskeletal: no gait disturbance, no weakness Extremities: no edema and no cyanosis Neuro: grossly normal exam Psych: appropriate affect and insight. Results & Data ([place]) Vital Signs (Past 12 Hours) Vital Signs Pulse Pulse Resp BP Pulse Ox 07/28/21 07:00 80 16 113/80 96 07/28/21 05:51 86 18 121/84 95 07/28/21 05:40 79 18 117/70 96 07/28/21 02:30 83 18 136/91 96 07/28/21 00:30 85 18 138/93 99 07/27/21 22:54 88 18 100 07/27/21 22:30 85 18 127/83 100 Laboratory Results 07/28/21 07/28/21 07/28/21 Range/Units 05:27 05:27 05:27 WBC 8.60 (4.8-10.8) K/uL RBC 4.00 L (4.2-5.4) M/uL Hgb 11.3 L (12.0-16.0) g/dL Hct 36.1 L (37-47) % MCV 90.3 (80-100) fL MCH 28.3 (25-34) pg MCHC 31.3 L (32-36) g/dL RDW Std Deviation 48.5 H (36.4-46.3) fL RDW Coeff of Yash 14.9 H (11.5-14.5) % Plt Count 329 (130-400) K/uL MPV 9.5 (7.4-10.4) fL Immature Gran % (Auto) 0.3 % Neut % (Auto) 59.0 % Lymph % (Auto) 32.3 % [place] % (Auto) 4.8 % Eos % (Auto) 3.5 % Baso % (Auto) 0.1 % Neut # (Auto) 5.07 (1.4-6.5) K/uL Lymph # (Auto) 2.78 (1.2-3.4) K/uL [place] # (Auto) 0.41 (0.11-0.59) K/uL Eos # (Auto) 0.30 (0-0.5) K/uL Baso # (Auto) 0.01 (0-0.2) K/uL Immature Gran # (Auto) 0.03 H (0.00-0.02) K/uL PT (9.0-12.0) Seconds INR (0.9-1.1) APTT 32.3 H (21.0-31.0) Seconds PTT Ratio 1.2 D-Dimer (0-500) ug/L FEU Sodium 139 (136-145) mmol/L Potassium 3.6 (3.5-5.1) mmol/L Chloride 108 H (98-107) mmol/L Carbon Dioxide 22 (21-32) mmol/L Anion Gap 9 (3-11) BUN 11 (6-23) mg/dl Creatinine 0.67 (0.6-1.2) mg/dl Est Cr Clr Drug Dosing 140.2 ml/min Est GFR ( Amer) 133.9 ml/min Est GFR (Non-Af Amer) 115.5 ml/min BUN/Creatinine Ratio 16.4 (10-20) Glucose 94 (70-99(Fasting)) mg/dl Calcium 8.7 (8.5-10.1) mg/dl Magnesium (1.7-2.4) mg/dl Total Bilirubin (0.2-1.0) mg/dl AST (13-39) U/L ALT (7-52) U/L Alkaline Phosphatase (34-104) U/L Troponin I < 0.03 (0-0.04) ng/ml Total Protein (6.0-8.3) gm/dl Albumin (3.4-5.0) gm/dl Globulin (2.5-4.0) gm/dl Albumin/Globulin Ratio (0.9-2) Triglycerides 150 (0-150) mg/dl Cholesterol 176 (0-200) mg/dl LDL Cholesterol, Calc 120 mg/dl VLDL Cholesterol, Calc 30 (0-30) mg/dl HDL Cholesterol 26 mg/dl Cholesterol/HDL Ratio 6.8 H (0-5) SARS-CoV-2, RNA, NAAT (NEGATIVE) 07/27/21 07/27/21 07/27/21 Range/Units 23:13 22:55 22:49 WBC (4.8-10.8) K/uL RBC (4.2-5.4) M/uL Hgb (12.0-16.0) g/dL Hct (37-47) % MCV (80-100) fL MCH (25-34) pg MCHC (32-36) g/dL RDW Std Deviation (36.4-46.3) fL RDW Coeff of Yash (11.5-14.5) % Plt Count (130-400) K/uL MPV (7.4-10.4) fL Immature Gran % (Auto) % Neut % (Auto) % Lymph % (Auto) % [place] % (Auto) % Eos % (Auto) % Baso % (Auto) % Neut # (Auto) (1.4-6.5) K/uL Lymph # (Auto) (1.2-3.4) K/uL [place] # (Auto) (0.11-0.59) K/uL Eos # (Auto) (0-0.5) K/uL Baso # (Auto) (0-0.2) K/uL Immature Gran # (Auto) (0.00-0.02) K/uL PT (9.0-12.0) Seconds INR (0.9-1.1) APTT (21.0-31.0) Seconds PTT Ratio D-Dimer 370 (0-500) ug/L FEU Sodium (136-145) mmol/L Potassium (3.5-5.1) mmol/L Chloride (98-107) mmol/L Carbon Dioxide (21-32) mmol/L Anion Gap (3-11) BUN (6-23) mg/dl Creatinine (0.6-1.2) mg/dl Est Cr Clr Drug Dosing ml/min Est GFR ( Amer) ml/min Est GFR (Non-Af Amer) ml/min BUN/Creatinine Ratio (10-20) Glucose (70-99(Fasting)) mg/dl Calcium (8.5-10.1) mg/dl Magnesium 2.1 (1.7-2.4) mg/dl Total Bilirubin (0.2-1.0) mg/dl AST (13-39) U/L ALT (7-52) U/L Alkaline Phosphatase (34-104) U/L Troponin I (0-0.04) ng/ml Total Protein (6.0-8.3) gm/dl Albumin (3.4-5.0) gm/dl Globulin (2.5-4.0) gm/dl Albumin/Globulin Ratio (0.9-2) Triglycerides (0-150) mg/dl Cholesterol (0-200) mg/dl LDL Cholesterol, Calc mg/dl VLDL Cholesterol, Calc (0-30) mg/dl HDL Cholesterol mg/dl Cholesterol/HDL Ratio (0-5) SARS-CoV-2, RNA, NAAT NEGATIVE (NEGATIVE) 07/27/21 07/27/21 07/27/21 Range/Units 22:45 18:00 18:00 WBC (4.8-10.8) K/uL RBC (4.2-5.4) M/uL Hgb (12.0-16.0) g/dL Hct (37-47) % MCV (80-100) fL MCH (25-34) pg MCHC (32-36) g/dL RDW Std Deviation (36.4-46.3) fL RDW Coeff of Yash (11.5-14.5) % Plt Count (130-400) K/uL MPV (7.4-10.4) fL Immature Gran % (Auto) % Neut % (Auto) % Lymph % (Auto) % [place] % (Auto) % Eos % (Auto) % Baso % (Auto) % Neut # (Auto) (1.4-6.5) K/uL Lymph # (Auto) (1.2-3.4) K/uL [place] # (Auto) (0.11-0.59) K/uL Eos # (Auto) (0-0.5) K/uL Baso # (Auto) (0-0.2) K/uL Immature Gran # (Auto) (0.00-0.02) K/uL PT 9.7 (9.0-12.0) Seconds INR 1.0 (0.9-1.1) APTT 32.8 H (21.0-31.0) Seconds PTT Ratio 1.2 D-Dimer (0-500) ug/L FEU Sodium 137 (136-145) mmol/L Potassium 4.0 (3.5-5.1) mmol/L Chloride 106 (98-107) mmol/L Carbon Dioxide 22 (21-32) mmol/L Anion Gap 9 (3-11) BUN 8 (6-23) mg/dl Creatinine 0.63 (0.6-1.2) mg/dl Est Cr Clr Drug Dosing 150.4 ml/min Est GFR ( Amer) 136.6 ml/min Est GFR (Non-Af Amer) 117.9 ml/min BUN/Creatinine Ratio 12.7 (10-20) Glucose 94 (70-99(Fasting)) mg/dl Calcium 9.4 (8.5-10.1) mg/dl Magnesium (1.7-2.4) mg/dl Total Bilirubin 0.4 (0.2-1.0) mg/dl AST 25 (13-39) U/L ALT 39 (7-52) U/L Alkaline Phosphatase 113 H (34-104) U/L Troponin I < 0.03 < 0.03 (0-0.04) ng/ml Total Protein 7.6 (6.0-8.3) gm/dl Albumin 4.2 (3.4-5.0) gm/dl Globulin 3.4 (2.5-4.0) gm/dl Albumin/Globulin Ratio 1.2 (0.9-2) Triglycerides (0-150) mg/dl Cholesterol (0-200) mg/dl LDL Cholesterol, Calc mg/dl VLDL Cholesterol, Calc (0-30) mg/dl HDL Cholesterol mg/dl Cholesterol/HDL Ratio (0-5) SARS-CoV-2, RNA, NAAT (NEGATIVE) 07/27/21 Range/Units 18:00 WBC 9.17 (4.8-10.8) K/uL RBC 4.39 (4.2-5.4) M/uL Hgb 12.4 (12.0-16.0) g/dL Hct 38.9 (37-47) % MCV 88.6 (80-100) fL MCH 28.2 (25-34) pg MCHC 31.9 L (32-36) g/dL RDW Std Deviation 47.3 H (36.4-46.3) fL RDW Coeff of Yash 14.6 H (11.5-14.5) % Plt Count 401 H (130-400) K/uL MPV 9.5 (7.4-10.4) fL Immature Gran % (Auto) 0.7 % Neut % (Auto) 68.0 % Lymph % (Auto) 24.3 % [place] % (Auto) 3.9 % Eos % (Auto) 2.9 % Baso % (Auto) 0.2 % Neut # (Auto) 6.23 (1.4-6.5) K/uL Lymph # (Auto) 2.23 (1.2-3.4) K/uL [place] # (Auto) 0.36 (0.11-0.59) K/uL Eos # (Auto) 0.27 (0-0.5) K/uL Baso # (Auto) 0.02 (0-0.2) K/uL Immature Gran # (Auto) 0.06 H (0.00-0.02) K/uL PT (9.0-12.0) Seconds INR (0.9-1.1) APTT (21.0-31.0) Seconds PTT Ratio D-Dimer (0-500) ug/L FEU Sodium (136-145) mmol/L Potassium (3.5-5.1) mmol/L Chloride (98-107) mmol/L Carbon Dioxide (21-32) mmol/L Anion Gap (3-11) BUN (6-23) mg/dl Creatinine (0.6-1.2) mg/dl Est Cr Clr Drug Dosing ml/min Est GFR ( Amer) ml/min Est GFR (Non-Af Amer) ml/min BUN/Creatinine Ratio (10-20) Glucose (70-99(Fasting)) mg/dl Calcium (8.5-10.1) mg/dl Magnesium (1.7-2.4) mg/dl Total Bilirubin (0.2-1.0) mg/dl AST (13-39) U/L ALT (7-52) U/L Alkaline Phosphatase (34-104) U/L Troponin I (0-0.04) ng/ml Total Protein (6.0-8.3) gm/dl Albumin (3.4-5.0) gm/dl Globulin (2.5-4.0) gm/dl Albumin/Globulin Ratio (0.9-2) Triglycerides (0-150) mg/dl Cholesterol (0-200) mg/dl LDL Cholesterol, Calc mg/dl VLDL Cholesterol, Calc (0-30) mg/dl HDL Cholesterol mg/dl Cholesterol/HDL Ratio (0-5) SARS-CoV-2, RNA, NAAT (NEGATIVE) Diagnostic Findings Echo 07/28/2021 PENDING
[2021-07-28] MEDS ORDERED: PANTOprazole 40 MG TAB PO SCH (09:00)
[2021-07-28] MEDS ORDERED: FAMOTIDINE 20 MG TAB PO SCH (09:00)
[2021-07-28] MEDS ORDERED: ASPIRIN 81 MG ECTAB PO SCH (09:00)
[2021-07-28] MEDS ORDERED: FLUTICASONE PROPIONATE NA SPR 16 GM BTL SCH (09:00)
[2021-07-28] MEDS ORDERED: LORATADINE 10 MG TAB PO SCH ×2 (09:00→21:00)
[2021-07-28] MEDS ORDERED: ENOXAPARIN INJ 40 MG/0.4 ML SYR SQ SCH (09:00)
[2021-07-28] MEDS ORDERED: MULTIVITAMIN TAB PO SCH (09:00)
[2021-07-28] MEDS ORDERED: METOPROLOL TARTRATE 25 MG TAB PO SCH (11:30)
[2021-07-28] MEDS ORDERED: MAGNESIUM OXIDE 400 MG TAB PO SCH (21:00)
--- NOTE | 2021-07-29 06:27 | Electrocardiogram Report ---
Test Reason : Blood Pressure : / mmHG Vent. Rate : 087 BPM Atrial Rate : 087 BPM P-R Int : 166 ms QRS Dur : 072 ms QT Int : 368 ms P-R-T Axes : 013 -01 -01 degrees QTc Int : 443 ms Normal sinus rhythm Minimal voltage criteria for LVH, may be normal variant Cannot rule out Anterior infarct Nonspecific T wave abnormality Abnormal ECG When compared with ECG of 05-JUL-2021 10:11, T wave inversion now evident in Inferior leads Nonspecific T wave abnormality, improved in Lateral leads Confirmed by Darryl Fernandez ([id number]) on 07/29/2021 6:27:41 AM Referred By: REFERRED SELF Confirmed By:Darryl Fernandez
== END 2021-07-28 19:46 | disposition home or self-care (01) ==
LOC: EDINP 17:18 → ED 17:18 → EDINP 07-28 03:05

== ENCOUNTER 2021-09-04 15:08 | Inpatient (IN) ==
[2021-09-04 16:00] LABS: Influenza A virus by PCR Negative (Negative); Influenza B virus by PCR Negative (Negative)
[2021-09-04 16:18] LABS: Albumin Globulin Ratio 1.2 (0.9-2); BUN Creatinine Ratio 15.9 (10-20); Bilirubin,Total 0.4 mg/dl (0.2-1.0); Creatinine Clr Calc Pharmacy 150.2 ml/min; Est GFR (African American) 136.6 ml/min; Est GFR (Non-African American) 117.9 ml/min; Globulin 3.4 gm/dl (2.5-4.0); Total Protein 7.4 gm/dl (6.0-8.3)
[2021-09-04 16:55] LABS: Potassium 3.9 mmol/L (3.5-5.1)
--- NOTE | 2021-09-04 17:02 | Electrocardiogram Report ---
Test Reason : Blood Pressure : / mmHG Vent. Rate : 084 BPM Atrial Rate : 084 BPM P-R Int : 164 ms QRS Dur : 080 ms QT Int : 366 ms P-R-T Axes : 011 -03 003 degrees QTc Int : 432 ms Normal sinus rhythm Minimal voltage criteria for LVH, may be normal variant Abnormal ECG When compared with ECG of 03-SEP-2021 16:43, No significant change was found Confirmed by Paulino Enamorado ([id number]) on 09/04/2021 5:01:47 PM Referred By: Confirmed By:Jose Enamorado
[2021-09-04 17:06] LABS: Hematocrit (blood only) 36.8 % (37-47); Hemoglobin 11.6 g/dL (12.0-16.0); Mean Corpuscular Hemoglobin 27.8 pg (25-34); Mean Corpuscular Hgb Conc 31.5 g/dL (32-36); Mean Corpuscular Volume 88.2 fL (80-100); Mean Platelet Volume 10.4 fL (7.4-10.4); Platelet Count 295 K/uL (130-400); RDW Coefficient of Variation 14.3 % (11.5-14.5); Red Blood Count 4.17 M/uL (4.2-5.4); White Blood Count 9.83 K/uL (4.8-10.8)
[2021-09-04 17:07] LABS: Basophils # (auto) 0.01 K/uL (0-0.2); Basophils % (auto) 0.1 %; Eosinophils # (auto) 0.26 K/uL (0-0.5); Eosinophils % (auto) 2.6 %; Immature Granulocytes # (auto) 0.04 K/uL (0.00-0.02); Immature Granulocytes % (auto) 0.4 %; Lymphocytes # (auto) 2.14 K/uL (1.2-3.4); Lymphocytes % (auto) 21.8 %; Monocytes # (auto) 0.47 K/uL (0.11-0.59); Monocytes % (auto) 4.8 %; Neutrophils # (auto) 6.91 K/uL (1.4-6.5); Neutrophils % (auto) 70.3 %; Platelet Estimate Normal (Normal)
--- NOTE | 2021-09-04 17:29 | Emergency Department Note ---
History of Present Illness General Chief complaint: Illness Stated complaint: CHEST PAIN, LIGHT HEADES, HX POTS Time Seen by Provider: 09/04/21 17:10 Source: patient and family ( who is at the bedside) Mode of arrival: ambulatory Limitations: no limitations History of Present Illness This patient is a 35-year-old female who comes in after feeling progressively worse. She has been here 9 times this month. She says she feels terrible she says she is 50% worse since yesterday. She has had chest pain she also feels diffusely weak. She was diagnosed with POTS in the past and she has had symptoms for 6 years she has been doing better in that regard after being started on a beta-jairo. She feels that both legs are weak. She feels like her brain is not working. She has had chest pain for 2 weeks she has had a ultrasound of her gallbladder CAT scan the abdomen and she had a right lower extremity ultrasound all which were unremarkable. She is allergic to IV contrast she is a no fall or trauma. Denies . No blood or melena stool. She has a mild headache. No dysuria or hematuria. Home Medications Medication Instructions Recorded Confirmed Type multivitamin 1 tab PO QAM 03/27/18 09/04/21 History loratadine 10 mg tablet (Claritin) 10 mg PO HS 03/21/20 09/04/21 History metoprolol succinate 25 mg 25 mg PO HS 08/28/21 09/04/21 History tablet,extended release 24 hr clotrimazole 1 % topical cream 1 applic TOPICAL BID 08/29/21 09/04/21 History ergocalciferol (vitamin D2) 1,250 1,250 mcg PO WK 08/29/21 09/04/21 History mcg (50,000 unit) capsule famotidine 20 mg tablet 20 mg PO BID 08/29/21 09/04/21 History lansoprazole 30 mg capsule,delayed 30 mg PO HS 09/04/21 09/04/21 History release (Prevacid) Allergies Allergy/AdvReac Type Severity Reaction Status Date / Time amoxicillin Allergy Severe ANAPHYLAXIS Verified 09/04/21 17:44 clavulanic acid Allergy Severe ANAPHYLAXIS Verified 09/04/21 17:44 Iodinated Contrast Media Allergy Severe Hives, Verified 09/04/21 17:44 tongue swelling doxycycline Allergy Intermediate Rash Verified 09/04/21 17:44 egg Allergy Intermediate Hives Verified 09/04/21 17:44 fish derived Allergy Intermediate Hives Verified 09/04/21 17:44 metronidazole Allergy Intermediate rash Verified 09/04/21 17:44 sulfamethoxazole Allergy Intermediate tongue Verified 09/04/21 17:44 [From Bactrim] swelling trimethoprim [From Bactrim] Allergy Intermediate tongue Verified 09/04/21 17:44 swelling coffee (Coffea arabica) Allergy Unknown per Verified 09/04/21 17:44 allergy testing Penicillins Allergy Unknown per Verified 09/04/21 17:44 allergy testing Past Med/Surg History Medical History Abnormal EEG Ankylosing spondylitis Anxiety and depression Change in vision Chest pain Chest pain COVID-19 Degenerative disc disease Dizziness DVT (deep venous thrombosis) Eustachian tube dysfunction Fatigue GERD (gastroesophageal reflux disease) Heart palpitations High cholesterol History of bradycardia History of bulimia History of pre-eclampsia Insomnia Iron deficiency anemia Migraine Morbid obesity with BMI of 40.0-44.9, adult Seasonal allergies Thoracic disc disease Vitamin B12 deficiency Vitamin D deficiency Surgical History History of cardiac cath 06/2015 @ [facility] [place]--d/t chest pain, normal no stents History of cholecystectomy History of esophagogastroduodenoscopy (EGD) History of wisdom tooth extraction Family History Father Hypertension Mother Diabetes Grandfather (Maternal) Diabetes Coronary heart disease Myocardial infarction Congestive heart failure Colorectal cancer Grandfather (Paternal) Diabetes Coronary heart disease Myocardial infarction, Onset Age: 50 Grandmother (Paternal) Pulmonary emphysema Sick sinus syndrome Diabetes Pacemaker Grandmother (Maternal) Family history of diabetes mellitus Aunt Pulmonary emphysema Family/Other Myocardial infarction, Onset Age: 37 Coronary heart disease Uncle Stroke Other Asthma Lymphoma No family history of adverse response to anesthesia Denies family history of Ovarian cancer Prostate cancer Breast cancer Social History Smoking Status: Never smoker Tobacco Type: Cigarettes Second Hand Exposure: No; Hx Alcohol Use: No Hx Substance Use: No Preferred Language: Maori Communication Ability: Effective Communication Tools: Other Visual Impairment: No Limitations Hearing Ability: Normal Platform Operations Director Required: No Beliefs That Will Affect Care: None marital status: Current Living Situation: Spouse and Family Current Living Situation Comment: Lives with and daughter current occupational status: unemployed Other Information That Helps Us Care for You: No Feels Safe at Home: Yes Safety Concerns: Feels Safe At This Time Childhood Exposure to Second-Hand Smoke: Yes caffeine: No during the past year weight has: remained stable Dental Care, Regularly: Yes Physical Activity Frequency: 5-6 Times per Week Seatbelt Use: never Sunscreen Use: Yes Assistive Devices: Glasses Review of Systems A total of 10 systems reviewed and were otherwise negative Physical Exam Vital Signs Vital Signs - 24 hr 09/04/21 15:18 09/04/21 17:57 Temperature 36.0 C L Temperature Source Temporal Artery Scan Pulse Rate 87 Pulse Rate [Finger] 85 Pulse Rhythm [Finger] Regular Pulse Strength [Finger] Normal Respiratory Rate 16 15 Respiratory Effort / Characteristics Non-Labored Spontaneous Non-Labored Respiratory Depth Normal Normal Respiratory Pattern Regular Regular Blood Pressure 123/86 Blood Pressure [Right Arm] 126/70 Blood Pressure Mean 98 Blood Pressure Mean [Right Arm] 88 Blood Pressure Position [Right Arm] Lying Pulse Oximetry 96 98 Oxygen Delivery Method Room Air Room Air Sepsis Recent Fever Within 48 Hours No Sepsis New/Unexplained Change in Mental Status No Sepsis Action Taken by Nursing No Action Required General: Well developed well nourished young female who appears in no acute distress, breathing comfortably on room air. Normal speech HEENT: Normal cephalic atraumatic. Pupils are equal round and reactive to light. Extraocular movements are intact. Oropharynx is pink with moist mucous membranes. No swelling of the mouth lips or tongue. Neck: Supple with a midline trachea. No meningeal signs or stiffness, no JVD or bruits. No Stridor. Chest: Clear to auscultation bilaterally. No wheezes or rhonchi. No increased work of breathing. Heart: Regular rate and rhythm without murmurs or gallops. Abdomen: Soft nontender, nondistended without rebound guarding or rigidity. Extremities: No cyanosis clubbing or edema. No calf tenderness or assymetry Spine/Back. Non tender to palpation. No CVA tenderness Skin: Good turgor without rashes. Neurologic exam: Cranial nerves two through 12 are intact. Motor and sensation are intact and symmetrical throughout. She feels like she is weak in the legs but does have normal movement. Her reflexes seem diminished throughout the lower extremities. No tremor. Course Administered Medications Famotidine (Famotidine 20 Mg Tab) 20 mg PO BID ANNA Stop: 10/04/21 21:00 Last Admin: 09/04/21 22:24 Dose: 20 mg Documented by: [id number] Potassium Chloride/Dextrose/Sod Cl (D5nss + 20meq Kcl) 20 meq in 1,000 mls @ 125 mls/hr IV .Q8H ANNA Stop: 10/04/21 21:00 Last Admin: 09/04/21 22:24 Dose: 125 mls/hr Documented by: [id number] Melatonin (Melatonin 3 Mg Tab) 3 mg PO HS PRN PRN Reason: Sleep Stop: 10/04/21 22:36 Last Admin: 09/04/21 22:58 Dose: 3 mg Documented by: [id number] Discontinued Medications Loratadine (Loratadine 10 Mg Tab) 10 mg PO NOW ONE Stop: 09/04/21 22:38 Last Admin: 09/04/21 22:57 Dose: 10 mg Documented by: [id number] Medical Decision Making Differential Diagnosis Gramajo, neurologic disease, dehydration, electrolyte or metabolic abnormality, infection, Covid Medical Records Attestation: I reviewed the patient's medical records. Home Medications Current Medication List: was personally reviewed by me Laboratory Data Attestation: I reviewed the patient's lab results. Result diagrams: 09/04/21 16:19 09/04/21 16:19 Lab Results 09/04/21 09/04/21 09/04/21 Range/Units 15:39 15:39 16:19 WBC Cancelled 9.83 RBC Cancelled 4.17 L Hgb Cancelled 11.6 L Hct Cancelled 36.8 L MCV Cancelled 88.2 MCH Cancelled 27.8 MCHC Cancelled 31.5 L RDW Std Deviation Cancelled 46.0 RDW Coeff of Yash Cancelled 14.3 Plt Count Cancelled 295 MPV Cancelled 10.4 Immature Gran % (Auto) Cancelled 0.4 Neut % (Auto) Cancelled 70.3 Lymph % (Auto) Cancelled 21.8 Faulkner % (Auto) Cancelled 4.8 Eos % (Auto) Cancelled 2.6 Baso % (Auto) Cancelled 0.1 Neut # (Auto) Cancelled 6.91 H Lymph # (Auto) Cancelled 2.14 Faulkner # (Auto) Cancelled 0.47 Eos # (Auto) Cancelled 0.26 Baso # (Auto) Cancelled 0.01 Immature Gran # (Auto) Cancelled 0.04 H Absolute Nucleated RBC Cancelled Nucleated RBC % (auto) Cancelled Neutrophils % (Manual) Cancelled Band Neutrophils % Cancelled Lymphocytes % (Manual) Cancelled Prolymphocyte % Cancelled Reactive Lymphs % (Man) Cancelled Monocytes % (Manual) Cancelled Eosinophils % (Manual) Cancelled Basophils % (Manual) Cancelled Metamyelocytes % (Man) Cancelled Myelocytes % (Man) Cancelled Promyelocytes % (Man) Cancelled Blast Cells % (Manual) Cancelled Plasma Cell % (Manual) Cancelled Other Cells % Cancelled Nucleated RBC % Cancelled Neutrophils # (Manual) Cancelled Band Neutrophils # Cancelled Total Absolute Neuts Cancelled Lymphocytes # (Manual) Cancelled Prolymphocyte # Cancelled Reactive Lymphs # Cancelled Total Abs Lymphocytes Cancelled Monocytes # (Manual) Cancelled Eosinophils # (Manual) Cancelled Basophils # (Manual) Cancelled Metamyelocytes # (Man) Cancelled Myelocytes # (Manual) Cancelled Promyelocytes # (Man) Cancelled Blast Cells # (Man) Cancelled Plasma Cell # (Manual) Cancelled Other Cells # Cancelled Nucleated RBCs # (Man) Cancelled Hypersegmented Neuts Cancelled Hyposegmented Neuts Cancelled Hypogranular Neuts Cancelled Large Granular Lymphs Cancelled # Lrg Granular Lymphs Cancelled Hairy Cells Cancelled Smudge Cells Cancelled Toxic Granulation Cancelled Toxic Vacuolation Cancelled Dohle Bodies Cancelled Charlotte Rods Cancelled Platelet Estimate Cancelled Normal Hypogranular Platelets Cancelled Clumped Platelets Cancelled Giant Platelets Cancelled Platelet Satelliting Cancelled RBC Morphology Cancelled Polychromasia Cancelled Hypochromasia Cancelled Poikilocytosis Cancelled Basophilic Stippling Cancelled Anisocytosis Cancelled Microcytosis Cancelled Macrocytosis Cancelled Spherocytes Cancelled Pappenheimer Bodies Cancelled Sickle Cells Cancelled Target Cells Cancelled Tear Drop Cells Cancelled Ovalocytes Cancelled Stomatocytes Cancelled Harris-[place] Bodies Cancelled Echinocytes Cancelled Acanthocytes (Spur) Cancelled Rouleaux Cancelled RBC Agglutinates Cancelled Schistocytes Cancelled RBC Morph Comment Cancelled Sezary Cell Cancelled Sodium 136 (136-145) mmol/L Potassium (3.5-5.1) mmol/L Chloride 105 (98-107) mmol/L Carbon Dioxide 21 (21-32) mmol/L Anion Gap 10 (3-11) BUN 10 (6-23) mg/dl Creatinine 0.63 (0.6-1.2) mg/dl Est Cr Clr Drug Dosing 150.2 ml/min Est GFR ( Amer) 136.6 ml/min Est GFR (Non-Af Amer) 117.9 ml/min BUN/Creatinine Ratio 15.9 (10-20) Glucose 130 H (70-99(Fasting)) mg/dl Calcium 9.0 (8.5-10.1) mg/dl Total Bilirubin 0.4 (0.2-1.0) mg/dl AST (13-39) U/L ALT 17 (7-52) U/L Alkaline Phosphatase 96 (34-104) U/L Total Protein 7.4 (6.0-8.3) gm/dl Albumin 4.0 (3.4-5.0) gm/dl Globulin 3.4 (2.5-4.0) gm/dl Albumin/Globulin Ratio 1.2 (0.9-2) 09/04/21 Range/Units 16:19 WBC RBC Hgb Hct MCV MCH MCHC RDW Std Deviation RDW Coeff of Yash Plt Count MPV Immature Gran % (Auto) Neut % (Auto) Lymph % (Auto) Faulkner % (Auto) Eos % (Auto) Baso % (Auto) Neut # (Auto) Lymph # (Auto) Faulkner # (Auto) Eos # (Auto) Baso # (Auto) Immature Gran # (Auto) Absolute Nucleated RBC Nucleated RBC % (auto) Neutrophils % (Manual) Band Neutrophils % Lymphocytes % (Manual) Prolymphocyte % Reactive Lymphs % (Man) Monocytes % (Manual) Eosinophils % (Manual) Basophils % (Manual) Metamyelocytes % (Man) Myelocytes % (Man) Promyelocytes % (Man) Blast Cells % (Manual) Plasma Cell % (Manual) Other Cells % Nucleated RBC % Neutrophils # (Manual) Band Neutrophils # Total Absolute Neuts Lymphocytes # (Manual) Prolymphocyte # Reactive Lymphs # Total Abs Lymphocytes Monocytes # (Manual) Eosinophils # (Manual) Basophils # (Manual) Metamyelocytes # (Man) Myelocytes # (Manual) Promyelocytes # (Man) Blast Cells # (Man) Plasma Cell # (Manual) Other Cells # Nucleated RBCs # (Man) Hypersegmented Neuts Hyposegmented Neuts Hypogranular Neuts Large Granular Lymphs # Lrg Granular Lymphs Hairy Cells Smudge Cells Toxic Granulation Toxic Vacuolation Dohle Bodies Charlotte Rods Platelet Estimate Hypogranular Platelets Clumped Platelets Giant Platelets Platelet Satelliting RBC Morphology Polychromasia Hypochromasia Poikilocytosis Basophilic Stippling Anisocytosis Microcytosis Macrocytosis Spherocytes Pappenheimer Bodies Sickle Cells Target Cells Tear Drop Cells Ovalocytes Stomatocytes Harris-[place] Bodies Echinocytes Acanthocytes (Spur) Rouleaux RBC Agglutinates Schistocytes RBC Morph Comment Sezary Cell Sodium (136-145) mmol/L Potassium 3.9 (3.5-5.1) mmol/L Chloride (98-107) mmol/L Carbon Dioxide (21-32) mmol/L Anion Gap (3-11) BUN (6-23) mg/dl Creatinine (0.6-1.2) mg/dl Est Cr Clr Drug Dosing ml/min Est GFR ( Amer) ml/min Est GFR (Non-Af Amer) ml/min BUN/Creatinine Ratio (10-20) Glucose (70-99(Fasting)) mg/dl Calcium (8.5-10.1) mg/dl Total Bilirubin (0.2-1.0) mg/dl AST 16 (13-39) U/L ALT (7-52) U/L Alkaline Phosphatase (34-104) U/L Total Protein (6.0-8.3) gm/dl Albumin (3.4-5.0) gm/dl Globulin (2.5-4.0) gm/dl Albumin/Globulin Ratio (0.9-2) ECG Data Attestation: I personally reviewed and interpreted this ECG as follows: Indication: + weakness Rate (beats per minute): 84 Rhythm: + normal sinus ECG Intervals/blocks: + Normal QRS, + Normal QT and + Normal GA ECG Hagan: + Normal ECG ST segments: + Normal ST segments ECG Findings: + LVH Comparison ECG Date: from (09/03/21) [facility] Narrative This patient comes in with 1/9 time this month for chest pain and weakness. She looks good on exam. She says she is getting worse and think she is 50% or since yesterday she has no definite neurologic deficits on my exam. She was hydrated with IV normal saline. she was Covid tested, EKG was unremarkable labs were unremarkable again. She does have POTS but I do not have a definite answers thus far for her weakness and given this is her ninth visit I have asked the [facility] hospitalist to see her for possible admission/observation. Impression & Plan Weakness, Chest pain, POTS (postural orthostatic tachycardia syndrome), Epigastric abdominal pain Discharge Plan Visit Data Chief Complaint: Illness Stated Complaint: CHEST PAIN, LIGHT HEADES, HX POTS ED Provider: Buddy Yeh Discharge Problem: Weakness, Chest pain, POTS (postural orthostatic tachycardia syndrome), Epigastric abdominal pain Patient Disposition: Admitted As Inpatient Discharge Instructions Interventions: ED Discharge Assessment Last Done: 09/04/21 21:06
--- NOTE | 2021-09-04 19:50 | History & Physical Report ---
Date of Service September 04, 2021 Assessment & Plan (1) Weakness: (2) Epigastric abdominal pain: (3) POTS (postural orthostatic tachycardia syndrome): Plan: Bilateral lower extremity weakness, in the setting of POTS Associated with dizziness, cognitive changes Patient had an brain MRI in June 2021 with no significant findings Pertinent neurology notes, EEG being planned Neurology service consulted Possibly secondary to metoprolol? Echo performed June 2021 also unrevealing Cardiology service consulted We will get serologic markers to rule out SLE, vitamin B12 deficiency, Lyme screen, TSH Poor nutrition also playing a role Dietitian consult Persistent epigastric pain Check D-dimer to rule out PE Patient already had CT chest June 2021 negative for PE GI consulted for possible inpatient EGD Continue famotidine, Carafate History of asthma Not exacerbation History of fibromyalgia/ankylosing spondylitis Denies myalgias and arthralgias at this point SLE work-up ordered plan of care discussed with patient in detail and at length all questions answered she is understanding, agreeable, comfortable with the plan of care History of Present Illness Chief Complaint: Aggressive bilateral leg weakness, persistent chest pain Primary Care Provider: Angela Arevalo MD 35-year-old female with history of recently diagnosed POTS, COVID-19, GERD, asthma, fibromyalgia/ankylosing spondylitis, prediabetes presenting with progressive bilateral lower extremity weakness and chest pain. Patient admitted last June for COVID-19 infection. She was also evaluated and treated for chest pain, and lightheadedness. Recently, patient was apparently diagnosed with POTS by cardiology service, and has been started with metoprolol XL 25 mg daily. For the past 2 weeks, the patient has had progressive bilateral lower extremity weakness associated with lightheadedness and cognitive changes. She also has been having persistent epigastric chest pain and has been scheduled to have an upper GI scope on the end of the month. Patient has had multiple ER visits for the past month secondary to above symptoms. Today she presents to the ER with progressively lower extremity weakness and chest pain. Blood work unrevealing. On exam, patient seen resting in bed, not in distress. Does confirm above symptoms, including lower extremity weakness, to the point that she feels like falling whenever she ambulates. No fever/chills, nausea or vomiting. Has been having very poor appetite recently. Allergies Allergy/AdvReac Type Severity Reaction Status Date / Time amoxicillin Allergy Severe ANAPHYLAXIS Verified 09/04/21 17:44 clavulanic acid Allergy Severe ANAPHYLAXIS Verified 09/04/21 17:44 Iodinated Contrast Media Allergy Severe Hives, Verified 09/04/21 17:44 tongue swelling doxycycline Allergy Intermediate Rash Verified 09/04/21 17:44 egg Allergy Intermediate Hives Verified 09/04/21 17:44 fish derived Allergy Intermediate Hives Verified 09/04/21 17:44 metronidazole Allergy Intermediate rash Verified 09/04/21 17:44 sulfamethoxazole Allergy Intermediate tongue Verified 09/04/21 17:44 [From Bactrim] swelling trimethoprim [From Bactrim] Allergy Intermediate tongue Verified 09/04/21 17:44 swelling coffee (Coffea arabica) Allergy Unknown per Verified 09/04/21 17:44 allergy testing Penicillins Allergy Unknown per Verified 09/04/21 17:44 allergy testing Home Medications Medication Instructions Recorded Confirmed Type multivitamin 1 tab PO QAM 03/27/18 09/04/21 History loratadine 10 mg tablet (Claritin) 10 mg PO HS 03/21/20 09/04/21 History metoprolol succinate 25 mg 25 mg PO HS 08/28/21 09/04/21 History tablet,extended release 24 hr clotrimazole 1 % topical cream 1 applic TOPICAL BID 08/29/21 09/04/21 History ergocalciferol (vitamin D2) 1,250 1,250 mcg PO WK 08/29/21 09/04/21 History mcg (50,000 unit) capsule famotidine 20 mg tablet 20 mg PO BID 08/29/21 09/04/21 History lansoprazole 30 mg capsule,delayed 30 mg PO HS 09/04/21 09/04/21 History release (Prevacid) Past Med/Surg History Medical History Abnormal EEG Ankylosing spondylitis Anxiety and depression Change in vision Chest pain Chest pain COVID-19 Degenerative disc disease Dizziness DVT (deep venous thrombosis) Eustachian tube dysfunction Fatigue GERD (gastroesophageal reflux disease) Heart palpitations High cholesterol History of bradycardia History of bulimia History of pre-eclampsia Insomnia Iron deficiency anemia Migraine Morbid obesity with BMI of 40.0-44.9, adult Seasonal allergies Thoracic disc disease Vitamin B12 deficiency Vitamin D deficiency Surgical History History of cardiac cath 06/2015 @ [facility] [place]--d/t chest pain, normal no stents History of cholecystectomy History of esophagogastroduodenoscopy (EGD) History of wisdom tooth extraction Family History Father Hypertension Mother Diabetes Grandfather (Maternal) Diabetes Coronary heart disease Myocardial infarction Congestive heart failure Colorectal cancer Grandfather (Paternal) Diabetes Coronary heart disease Myocardial infarction, Onset Age: 50 Grandmother (Paternal) Pulmonary emphysema Sick sinus syndrome Diabetes Pacemaker Grandmother (Maternal) Family history of diabetes mellitus Aunt Pulmonary emphysema Family/Other Myocardial infarction, Onset Age: 37 Coronary heart disease Uncle Stroke Other Asthma Lymphoma No family history of adverse response to anesthesia Denies family history of Ovarian cancer Prostate cancer Breast cancer Social History Smoking Status: Never smoker Tobacco Type: Cigarettes Second Hand Exposure: No; Hx Alcohol Use: No Hx Substance Use: No Preferred Language: Arabic Communication Ability: Effective Communication Tools: Other Visual Impairment: No Limitations Hearing Ability: Normal Conformal Pad Former Required: No Beliefs That Will Affect Care: None marital status: Current Living Situation: Spouse and Family Current Living Situation Comment: Lives with and daughter current occupational status: unemployed How many Children do You have: 1 Other Information That Helps Us Care for You: No Feels Safe at Home: Yes Safety Concerns: Feels Safe At This Time Childhood Exposure to Second-Hand Smoke: Yes caffeine: No during the past year weight has: remained stable Dental Care, Regularly: Yes Physical Activity Frequency: 5-6 Times per Week Seatbelt Use: never Sunscreen Use: Yes Assistive Devices: None Review of Systems Review of Systems: all noted and negative except for above Physical Exam Physical Exam: General- oriented x 3, not in distress, speaks in sentences with no effort or accessory muscle use Head- atraumatic Eyes- PERRL, EOMI, anicteric ENT- oropharynx clear Neck- supple, no JVD, no adenopathy, no thyromegaly; carotids +2/2, no bruits appreciated Lungs- clear to auscultation bilaterally, no rales/wheezes Heart- normal rate, regular rhythm; no murmur, no gallop, no rub appreciated Abdomen- normal bowel sounds, nondistended, soft, mild epigastric tenderness, no masses or hepatosplenomegaly Extremities- no pretibial edema, no calf tenderness; peripheral pulses intact Neuro- alert, oriented x 3; CN 2-12 grossly intact; motor 5/5 bilaterally;sensation 100% on all extremities; no other gross focal neurologic deficits Skin- warm & dry Positive small erythematous rash on the right forearm, right earlobe, right scalp behind the ear. Positive malar rash? Results & Data Results & Data ([facility]) Vital Signs (Past 12 Hours) Vital Signs Temp Pulse Pulse Resp BP BP Pulse Ox 09/04/21 19:08 84 18 135/89 96 09/04/21 17:57 85 15 126/70 98 09/04/21 15:18 36.0 C L 87 16 123/86 96 all noted and reviewed including below Code Status & VTE Plan VTE Prophylaxis Plan VTE Prophylaxis will be ordered: Yes
[2021-09-04] MEDS ORDERED: ONDANSETRON INJ 2 MG/ML 2 ML VIAL IV PRN (21:01)
[2021-09-04] MEDS ORDERED: ACETAMINOPHEN 325 MG TAB PO PRN (21:01)
[2021-09-04 21:40] LABS: D Dimer 390 ug/L FEU (0-500)
[2021-09-04 22:19] LABS: Lyme Ab IgG w/WB Rflx Negative (Negative); Lyme Ab IgM w/WB Rflx Negative (Negative)
[2021-09-04] MEDS: D5NSS + 20MEQ KCL 20 MEQ/1,000 ML BAG IV SCH (22:24)
[2021-09-04] MEDS: FAMOTIDINE 20 MG TAB PO SCH (22:24)
[2021-09-04 22:26] LABS: Folate (Folic Acid) 7.44 ng/ml (>5.38)
[2021-09-04] MEDS ORDERED: LORATADINE 10 MG TAB PO ONE (22:37)
[2021-09-04] MEDS: MELATONIN 3 MG TAB PO PRN (22:58)
[2021-09-05 00:26] LABS: Appearance Urine Clear (Clear); Bilirubin Urine Negative (Negative); Blood Urine Negative (Negative); Color Urine Yellow; Glucose Urine UA Negative (Negative); Ketones Urine Negative (Negative); Leukocyte Esterase Urine Negative (Negative); Nitrite Urine Negative (Negative); Protein Urine Negative (Negative); Specific Gravity Urine 1.009 (1.000-1.030); Urobilinogen Urine Negative (Negative); pH Urine 7.5 (4.5-7.5)
[2021-09-05] MEDS: D5NSS + 20MEQ KCL 20 MEQ/1,000 ML BAG IV SCH ×4 (05:01→21:58)
--- NOTE | 2021-09-05 07:36 | Cardiology Consultation ---
Date of Consultation September 05, 2021 Assessment & Plan (1) Chest pain: (2) Palpitations: (3) Sinus tachycardia: Had an outpatient monitor completed recently- results showed numerous patient triggered events correlated to normal sinus rhythm and sinus tachycardia. No concerning arrhythmias. Had a tilt table test on on 08/10/2021, ordered by Dr. Noriega. Testing what negative for orthostatic intolerance. HR were elevated Monitoring during the test showed NSR and ST- no arrhythmias or pauses noted. She has had an extensive cardiac workup in the past regarding her chest pain- she had a cardiac cath done aprox. 5 years which showed normal coronary arteries and a repeat treadmill stress test in 2018 which was normal as well. 1. Recommended increasing metoprolol to 12.5 mg every morning and 25 mg every evening- patient declined and wishes to stay on 25 mg every evening only 2. Discussed her TTT results and treatment options. 3. Encouraged hydration, liberal salt intake, compression socks, and changing positions slowly. 4. Can consider switching BB to Pindolol as an outpatient. Case discussed with Dr. Landry. No further cardiac testing necessary at this time. Supervising Physician Co-Signing Physician Notes Supervising Physician Attestation: I have personally performed a history and physical examination on the patient. I agree with the nurse practitioner's findings and plan as documented with the following additions. Subjective: Feels poorly as noted. No acute distress. Vital signs stable. Exam: Temp Pulse Resp BP Pulse Ox 36.6 C 75 18 128/82 96 09/05/21 11:49 09/05/21 11:49 09/05/21 11:49 09/05/21 11:49 09/05/21 11:49 CV: RRR, no murmurs, no edema Data: Echo 07/28/21 [facility]: no structural heart disease Assessment and Plan: Impression as noted above. -pt has been on and off metoprolol for years. -Neurology consultation noted and appreciated. Pt to have MRI / MRV today. -consider trial of alternative beta jairo, pindolol as outpatient. This agent is non formulary not available as inpatient. Juan Pablo Landry, DO History of Present Illness Reason for Consultation: Weakness and chest pain Requesting Physician: [facility] hospitalist Attending Physician: Joseph Duong MD History of Present Illness 35 year old female. Presented to [facility] ED with progressive BL leg weakness and persistent chest pain. Has been seen on multiple occasions here due to similar concerns. This is her 8th visit this month. She has last seen by Larissa Avendano about 7 months ago. She was to see her again on 08/31 but failed to showed to her telemedicine appt. Had an outpatient monitor completed recently- results showed numerous patient triggered events correlated to normal sinus rhythm and sinus tachycardia. No concerning arrhythmias. Recommended increasing metoprolol to 25 mg BID, but patient declined. Had a tilt table test on on 08/10/2021, at [facility] . Monitoring during the test showed NSR and ST- no arrhythmias or pauses noted. Final impression in the report of the procedure that results did not support the diagnosis of orthostatic intolerance. She also had a prior tilt table test at [facility] , 04/11/21 that was interpreted as being normal. She has had an extensive cardiac workup in the past regarding her chest pain- she had a cardiac cath done aprox. 5 years which showed normal coronary arteries and a repeat treadmill stress test in 2018 which was normal as well. EKG: NSR 84 bpm, T-wave inversion on lead III (normal variant)- unchanged from previous EKG CXR negative Gall Bladder US: unremarkable CT abd/pelvis: There are no acute infectious or inflammatory findings in the abdomen or pelvis Echo 07/2021: LVEF 65-70%, normal LV size and function, normal RA and LA, No valve abnormalities Labs: unremarkable excepted elevated ESR and CRP- immunology lab work pending Tele: SR 80-100s, now 70s this am. Upon entrance into the room patient was resting comfortably in bed in no acute distress. Notes that she has been having a lot of "weird symptoms" and that she "cannot function" at home. Notes a chest pressure/pounding sensation. Selah sensations also in the hands and arms. States that she saw neurology who will be completing and EEG and testing her for intracranial hypertension. No shortness of breath. No current dizziness, but does occur at times. PMH: Palpitations- Sinus Tach Hx of DVT in 2018 due to long distance travel, per patient heme workup negative DYE ALLERGY- hives even with pretreatment VQ scan negative 01/2021 [facility] Obesity Anxiety Hx of Covid -19, 06/2021 Normal coronary arteries per cath at age 29 (done due to Gallbladder issues) Negative stress echo 2017 (done due to GERD/sharp atypical CP) Negative TTT 07/2021 IV contrast Dye allergy FHX: Premature CAD, cousin sudden [place] required LifeVest use, GF at age 50 due to [place] Allergies Allergy/AdvReac Type Severity Reaction Status Date / Time amoxicillin Allergy Severe ANAPHYLAXIS Verified 09/04/21 17:44 clavulanic acid Allergy Severe ANAPHYLAXIS Verified 09/04/21 17:44 Iodinated Contrast Media Allergy Severe Hives, Verified 09/04/21 17:44 tongue swelling doxycycline Allergy Intermediate Rash Verified 09/04/21 17:44 egg Allergy Intermediate Hives Verified 09/04/21 17:44 fish derived Allergy Intermediate Hives Verified 09/04/21 17:44 metronidazole Allergy Intermediate rash Verified 09/04/21 17:44 sulfamethoxazole Allergy Intermediate tongue Verified 09/04/21 17:44 [From Bactrim] swelling trimethoprim [From Bactrim] Allergy Intermediate tongue Verified 09/04/21 17:44 swelling coffee (Coffea arabica) Allergy Unknown per Verified 09/04/21 17:44 allergy testing Penicillins Allergy Unknown per Verified 09/04/21 17:44 allergy testing Home Medications Medication Instructions Recorded Confirmed Type multivitamin 1 tab PO QAM 03/27/18 09/04/21 History loratadine 10 mg tablet (Claritin) 10 mg PO HS 03/21/20 09/04/21 History metoprolol succinate 25 mg 25 mg PO HS 08/28/21 09/04/21 History tablet,extended release 24 hr clotrimazole 1 % topical cream 1 applic TOPICAL BID 08/29/21 09/04/21 History ergocalciferol (vitamin D2) 1,250 1,250 mcg PO WK 08/29/21 09/04/21 History mcg (50,000 unit) capsule famotidine 20 mg tablet 20 mg PO BID 08/29/21 09/04/21 History lansoprazole 30 mg capsule,delayed 30 mg PO HS 09/04/21 09/04/21 History release (Prevacid) Patient History Medical History Abnormal EEG Ankylosing spondylitis Anxiety and depression Change in vision Chest pain Chest pain COVID-19 Degenerative disc disease Dizziness DVT (deep venous thrombosis) Eustachian tube dysfunction Fatigue GERD (gastroesophageal reflux disease) Heart palpitations High cholesterol History of bradycardia History of bulimia History of pre-eclampsia Insomnia Iron deficiency anemia Migraine Morbid obesity with BMI of 40.0-44.9, adult Seasonal allergies Thoracic disc disease Vitamin B12 deficiency Vitamin D deficiency Surgical History History of cardiac cath 06/2015 @ [facility] [place]--d/t chest pain, normal no stents History of cholecystectomy History of esophagogastroduodenoscopy (EGD) History of wisdom tooth extraction Family History Father Hypertension Mother Diabetes Grandfather (Maternal) Diabetes Coronary heart disease Myocardial infarction Congestive heart failure Colorectal cancer Grandfather (Paternal) Diabetes Coronary heart disease Myocardial infarction, Onset Age: 50 Grandmother (Paternal) Pulmonary emphysema Sick sinus syndrome Diabetes Pacemaker Grandmother (Maternal) Family history of diabetes mellitus Aunt Pulmonary emphysema Family/Other Myocardial infarction, Onset Age: 37 Coronary heart disease Uncle Stroke Other Asthma Lymphoma No family history of adverse response to anesthesia Denies family history of Ovarian cancer Prostate cancer Breast cancer Social History Smoking Status: Never smoker Tobacco Type: Cigarettes Second Hand Exposure: No; Hx Alcohol Use: No Hx Substance Use: No Preferred Language: Kazakh Communication Ability: Effective Communication Tools: Other Visual Impairment: No Limitations Hearing Ability: Normal Specification Consultant Required: No Beliefs That Will Affect Care: None marital status: Current Living Situation: Spouse and Family Current Living Situation Comment: Lives with and daughter current occupational status: unemployed Other Information That Helps Us Care for You: No Feels Safe at Home: Yes Safety Concerns: Feels Safe At This Time Childhood Exposure to Second-Hand Smoke: Yes caffeine: No during the past year weight has: remained stable Dental Care, Regularly: Yes Physical Activity Frequency: 5-6 Times per Week Seatbelt Use: never Sunscreen Use: Yes Assistive Devices: Glasses Review of Systems Review of Systems: All systems reviewed & are unremarkable except as noted in HPI & below Physical Exam 2 Physical Exam: General: no acute distress and stated age Eyes: conjunctiva are pink and non-injected, sclera clear Neck: normal jugular venous pulse, no hepatojugular reflux Chest: normal shape and normal respiratory effort Lungs: clear to auscultation and percussion Cardiac Exam: - regular heart sounds, no murmurs, rubs, or gallops Abdomen: abdomen soft, non-tender, obese Musculoskeletal: no gait disturbance, no weakness Extremities: no edema and no cyanosis Neuro: grossly normal exam Psych: appropriate affect and insight. Results & Data ([facility]) Vital Signs (Past 12 Hours) Vital Signs Temp Pulse Pulse Resp BP BP Pulse Ox 09/05/21 03:00 36.8 C 75 18 99/66 L 95 09/04/21 22:46 37.0 C 76 16 112/77 97 09/04/21 22:18 88 09/04/21 21:06 85 18 150/100 H 98 09/04/21 21:02 82 09/04/21 21:01 09/04/21 20:40 36.6 C 84 20 153/122 H 95 Pulse Ox 09/05/21 03:00 09/04/21 22:46 09/04/21 22:18 09/04/21 21:06 09/04/21 21:02 09/04/21 21:01 95 09/04/21 20:40 Laboratory Results Cardiac Enzymes 09/04/21 09/04/21 Range/Units 15:39 16:19 AST 16 (13-39) U/L ALT 17 CBC 09/04/21 09/04/21 Range/Units 15:39 16:19 WBC Cancelled 9.83 RBC Cancelled 4.17 L Hgb Cancelled 11.6 L Hct Cancelled 36.8 L Plt Count Cancelled 295 Neut # (Auto) Cancelled 6.91 H Lymph # (Auto) Cancelled 2.14 [place] # (Auto) Cancelled 0.47 Eos # (Auto) Cancelled 0.26 Baso # (Auto) Cancelled 0.01 Comprehensive Metabolic Panel 09/04/21 09/04/21 Range/Units 15:39 16:19 Sodium 136 (136-145) mmol/L Potassium 3.9 (3.5-5.1) mmol/L Chloride 105 (98-107) mmol/L Carbon Dioxide 21 (21-32) mmol/L BUN 10 (6-23) mg/dl Creatinine 0.63 (0.6-1.2) mg/dl Glucose 130 H (70-99(Fasting)) mg/dl Calcium 9.0 (8.5-10.1) mg/dl AST 16 (13-39) U/L ALT 17 (7-52) U/L Alkaline Phosphatase 96 (34-104) U/L Total Protein 7.4 (6.0-8.3) gm/dl Albumin 4.0 (3.4-5.0) gm/dl Intake and Output 09/04/21 09/05/21 09/05/21 22:59 06:59 14:59 Intake Total 1120 / 1120 Output Total 275 / 275 Balance 845 / 845 Intake: IV 1000 / 1000 D5nss + 20Meq KCl 20 meq In 1, 1000 / 1000 000 ml @ 125 mls/hr IV .Q8H [facility] Rx#:[id number] Oral 120 / 120 Output: Urine 275 / 275 Other: Other Intake Source sips Weight 111.9 kg 112.3 kg Weight Measurement Method Standing Scale (1) Chest pain Chest pain type: precordial pain Qualified Code(s): R07.2 - Precordial pain
[2021-09-05] MEDS: FAMOTIDINE 20 MG TAB PO SCH ×2 (08:55→19:43)
--- NOTE | 2021-09-05 10:11 | Neurology Consultation ---
Date of Consultation September 05, 2021 Assessment & Plan (1) Headache: (2) Vision changes: (3) Weakness: 35-year-old female with persistent headaches, pulsatile tinnitus, transient vision disturbances, morbid obesity, history of DVT, possible postural orthostatic tachycardia syndrome other diagnoses not entirely clear per cardiology, associated myalgias and neuropathic pain of the lower limbs with subjective weakness. I do have some concern for possible idiopathic intracrani al hypertension in this patient or possibly cerebral venous thrombosis. Would recommend gadolinium-enhanced brain MRI and MRV. If these tests are unremarkable, would recommend lumbar puncture with opening pressure in radiology. Patient will need an outpatient ophthalmology evaluation to further exclude papilledema and assess her visual kowalski. I do not see an immediate reason to obtain an inpatient EEG at this time. Subjective weakness and neuropathic pain affecting the lower extremities. Could have a small fiber polyneuropathy. Would consider outpatient EMG as well as skin punch biopsy. Patient's diagnosis of POTS has been brought into question. I do see that she was evaluated by [facility] neurology, Dr. Daksha Vera for headaches and dizziness at that time. 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 Patient may wish to follow-up with a vestibular specialist for this particular issue. History of Present Illness Reason for Consultation: weakness Requesting Physician: Joseph Duong MD Attending Physician: Joseph Duong MD History of Present Illness The patient is a 35-year-old female who is known to the [facility] neurology service. She has a history of dizziness, headaches, and postural orthostatic tachycardia syndrome. She complains of frequent headaches and pulsatile tinnitus which is typically worse with lying flat as well as associated transient vision disturbances, not clearly provoked by bending over or standing up. She has a remote history of lower extremity DVT for which she has been treated with an anticoagulant in the past. She has not had a recent eye examination. Patient is morbidly obese. She also complains of chronic lower extremity weakness with associated burning pain. She has been evaluated at the [facility] emergency department multiple times this month for chest pain, lightheadedness, abdominal pain. Patient was last seen in neurology clinic with Tiffanie Leslie PA-C on August 29, 2021 regarding her history of postural orthostatic tachycardia syndrome for which she is currently following with cardiology. Recent cardiology consultation with Dr. Herrera noted. Looks like diagnosis of POTS is not entirely clear in this patient. Patient's metoprolol dosage was increased. Was also suggested that patient potentially seek an evaluation at a POTS clinic for another opinion regarding her diagnosis. Allergies Allergy/AdvReac Type Severity Reaction Status Date / Time amoxicillin Allergy Severe ANAPHYLAXIS Verified 09/04/21 17:44 clavulanic acid Allergy Severe ANAPHYLAXIS Verified 09/04/21 17:44 Iodinated Contrast Media Allergy Severe Hives, Verified 09/04/21 17:44 tongue swelling doxycycline Allergy Intermediate Rash Verified 09/04/21 17:44 egg Allergy Intermediate Hives Verified 09/04/21 17:44 fish derived Allergy Intermediate Hives Verified 09/04/21 17:44 metronidazole Allergy Intermediate rash Verified 09/04/21 17:44 sulfamethoxazole Allergy Intermediate tongue Verified 09/04/21 17:44 [From Bactrim] swelling trimethoprim [From Bactrim] Allergy Intermediate tongue Verified 09/04/21 17:44 swelling coffee (Coffea arabica) Allergy Unknown per Verified 09/04/21 17:44 allergy testing Penicillins Allergy Unknown per Verified 09/04/21 17:44 allergy testing Home Medications Medication Instructions Recorded Confirmed Type multivitamin 1 tab PO QAM 03/27/18 09/04/21 History loratadine 10 mg tablet (Claritin) 10 mg PO HS 03/21/20 09/04/21 History metoprolol succinate 25 mg 25 mg PO HS 08/28/21 09/04/21 History tablet,extended release 24 hr clotrimazole 1 % topical cream 1 applic TOPICAL BID 08/29/21 09/04/21 History ergocalciferol (vitamin D2) 1,250 1,250 mcg PO WK 08/29/21 09/04/21 History mcg (50,000 unit) capsule famotidine 20 mg tablet 20 mg PO BID 08/29/21 09/04/21 History lansoprazole 30 mg capsule,delayed 30 mg PO HS 09/04/21 09/04/21 History release (Prevacid) Patient History Medical History Abnormal EEG Ankylosing spondylitis Anxiety and depression Change in vision Chest pain Chest pain COVID-19 Degenerative disc disease Dizziness DVT (deep venous thrombosis) Eustachian tube dysfunction Fatigue GERD (gastroesophageal reflux disease) Heart palpitations High cholesterol History of bradycardia History of bulimia History of pre-eclampsia Insomnia Iron deficiency anemia Migraine Morbid obesity with BMI of 40.0-44.9, adult Seasonal allergies Thoracic disc disease Vitamin B12 deficiency Vitamin D deficiency Surgical History History of cardiac cath 06/2015 @ [facility] [place]--d/t chest pain, normal no stents History of cholecystectomy History of esophagogastroduodenoscopy (EGD) History of wisdom tooth extraction Family History Father Hypertension Mother Diabetes Grandfather (Maternal) Diabetes Coronary heart disease Myocardial infarction Congestive heart failure Colorectal cancer Grandfather (Paternal) Diabetes Coronary heart disease Myocardial infarction, Onset Age: 50 Grandmother (Paternal) Pulmonary emphysema Sick sinus syndrome Diabetes Pacemaker Grandmother (Maternal) Family history of diabetes mellitus Aunt Pulmonary emphysema Family/Other Myocardial infarction, Onset Age: 37 Coronary heart disease Uncle Stroke Other Asthma Lymphoma No family history of adverse response to anesthesia Denies family history of Ovarian cancer Prostate cancer Breast cancer Social History Smoking Status: Never smoker Tobacco Type: Cigarettes Second Hand Exposure: No; Hx Alcohol Use: No Hx Substance Use: No Preferred Language: Liberian Communication Ability: Effective Communication Tools: Other Visual Impairment: No Limitations Hearing Ability: Normal Bobbin Disker Required: No Beliefs That Will Affect Care: None marital status: Current Living Situation: Spouse and Family Current Living Situation Comment: Lives with and daughter current occupational status: unemployed Other Information That Helps Us Care for You: No Feels Safe at Home: Yes Safety Concerns: Feels Safe At This Time Childhood Exposure to Second-Hand Smoke: Yes caffeine: No during the past year weight has: remained stable Dental Care, Regularly: Yes Physical Activity Frequency: 5-6 Times per Week Seatbelt Use: never Sunscreen Use: Yes Assistive Devices: Glasses Review of Systems Constitutional: no fever and no chills Eyes: + worsening vision and + problem reported; no diplopia and no tunnel vision Ear, Nose, Mouth, Throat: no ear pain and no hearing loss Respiratory: no cough and no dyspnea Cardiovascular: no chest pain and no palpitations Gastrointestinal: no constipation and no diarrhea/loose stools Genitourinary: no urinary urgency and no urinary incontinence Musculoskeletal: + myalgia and + muscle weakness; no muscle atrophy Integumentary: no rash and no lesions Neurologic: as per Subjective / HPI, + paresthesia and + headache(s) Psychiatric: no behavioral changes, no depression, no abnormal sleep pattern and no anxiety Hematologic / Lymphatic: no easy bruising and no lymphadenopathy Exam (Neuro) Constitutional: well developed and well nourished; no acute distress Eyes: normal visual kowalski by confrontation, PERRL, normal accommodation, EOM intact bilaterally and + papilledema (Optic nerve margin somewhat indistinct, unable to exclude mild papilledema.); no nystagmus Cardiovascular: Vessels: normal carotid upstroke; no carotid bruit Neurologic: Oriented to:: Person, Place and Time Memory: Short Term Intact and Remote Intact Attention: Span Intact and Concentration Intact Langu age: Naming Objects and Repeating Phrases Speech Fluency: negative Dysarthria Speech Aphasia: negative Aphasia Fund of Knowledge: Current Events, Past History and Vocabulary Cranial Nerves: Normal II (Visual kowalski full to confrontation, visual acuity normal), III, IV, (Pupils equal round reactive to light and accommodation, eye movements normal), V (Facial sensation intact), VII (There is no facial droop or weakness), VIII (Hearing intact), IX, X (Palate elevates to midline), XI (Shoulder shrug intact) and XII (Tongue protrudes to midline) Motor Strength: Normal Lower Extremities and Normal Upper Extremities; negative Pronator Drift Motor Tone: Normal Lower Extremities and Normal Upper Extremities Muscle Bulk/Involuntary Movements: No Involuntary Movements; negative Muscle Atrophy Sensation: Light Touch Intact, Pain/Temperature Intact, Vibration Intact and Proprioception Intact Coordination: Normal; negative Limited Balance, Dysdiadochokinesia, Finger-Nose Abnormal or Heel-Michaud Abnormal Deep Tendon Reflexes: Rt Triceps: 2+, Lt Triceps: 2+, Rt Biceps: 2+, Lt Biceps: 2+, Rt Brachioradialis: 2+, Lt B rachioradialis: 2+, Rt Patellar: 2+, Lt Patellar: 2+, Rt Ankle: 2+ and Lt Ankle: 2+ Special Tests: negative Babinski Present Gait: Normal Station and Gait Results & Data ([facility]) Vital Signs (Past 12 Hours) Vital Signs Temp Pulse Pulse Resp BP Pulse Ox 09/05/21 07:42 36.7 C 79 19 110/75 97 09/05/21 03:00 36.8 C 75 18 99/66 L 95 09/04/21 22:46 37.0 C 76 16 112/77 97 09/04/21 22:18 88 Laboratory Results WBC 9.83, hemoglobin 11.6, hematocrit 36.8, MCV 88.2, platelet count 295, ESR 55, D-dimer 390, sodium 136, potassium 3.9, BUN 10, creatinine 0.63, glucose 130, calcium 9.0, AST 16, ALT 17, C-reactive protein 2.83, vitamin B12 316, folate 7.44, TSH 1.406, Lyme screening negative. Diagnostic Findings CT of the head done August 27, 2021 - for hemorrhage or acute process, no hydrocephalus. Brain MRI done July 04, 2021 unremarkable, no evidence of demyelinating disease, hydrocephalus, or parenchymal abnormality. I reviewed the images as well as the radiologist interpretation of this test. MRA of the brain completed at [facility] January 06, 2021 was unremarkable. MRV of the brain completed at [facility] June 15, 2020 revealed a diminutive appearance of the left transverse sinus. There was low-grade suspicion for dural venous sinus thrombosis of the left transverse sinus at that time. MRI of the thoracic spine completed to [facility] in August 2019 revealed mild disc degeneration at T10-11 and T11-12. No significant spinal cord abnormality. MRI of the cervical spine completed at [facility] in July 2019 was unremarkable. An EEG completed July 24, 2021 was normal. 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
--- NOTE | 2021-09-05 10:17 | Gastrointestinal Consultation ---
Date of Consultation September 05, 2021 Assessment & Plan (1) Chest pain: (2) Epigastric abdominal pain: Continue Famotidine BID. Appreciate cardiology eval. Plan for EGD tomorrow. May have clear liquids po today, then NPO after midnight. Supervising Physician Co-Signing Physician Notes I performed a history and physical examination of the patient today, including specifically on physical exam - soft abdomen. I have discussed the patient's management with the advanced practitioner. Please refer to the nurse practitioner's note for the documented findings and plan of care. EGD tomorrow History of Present Illness Reason for Consultation: PERSISTENT CHEST PAIN, POSSIBLE GASTRIC ULCER Requesting Physician: Dr. Duong Attending Physician: Joseph Duong MD History of Present Illness Ms. Verna Brown is a 35 yr old female pt of Dr. Angela Thomas with a hx of POTS, GERD who presented to the ED on 09/04/21 for CP. She is also known to our GI group as I saw her by video in Apr 2021, then we were consulted during hospitalization on 09/05/21 both times recommending OP EGD, but we have not been able to reach the pt to arrange. For a few years she has had ongoing reflux, fe lt as burning and pressure in the chest, sore throat, waking at night with a cough and chest burning, occasionally vomiting bilious liquid. She has some epigastric burning as well. She tells me that she underwent EGD with [facility] in 2019 with [facility] and was found to have significant reflux. She has had some unexplained weight loss: 272->243 labs in the past few months. She has not had blood in BMs, black BMs, or hematemesis. Of note, she does have sed and CRP labs. Allergies Allergy/AdvReac Type Severity Reaction Status Date / Time amoxicillin Allergy Severe ANAPHYLAXIS Verified 09/04/21 17:44 clavulanic acid Allergy Severe ANAPHYLAXIS Verified 09/04/21 17:44 Iodinated Contrast Media Allergy Severe Hives, Verified 09/04/21 17:44 tongue swelling doxycycline Allergy Intermediate Rash Verified 09/04/21 17:44 egg Allergy Intermediate Hives Verified 09/04/21 17:44 fish derived Allergy Intermediate Hives Verified 09/04/21 17:44 metronidazole Allergy Intermediate rash Verified 09/04/21 17:44 sulfamethoxazole Allergy Intermediate tongue Verified 09/04/21 17:44 [From Bactrim] swelling trimethoprim [From Bactrim] Allergy Intermediate tongue Verified 09/04/21 17:44 swelling coffee (Coffea arabica) Allergy Unknown per Verified 09/04/21 17:44 allergy testing Penicillins Allergy Unknown per Verified 09/04/21 17:44 allergy testing Home Medications Medication Instructions Recorded Confirmed Type multivitamin 1 tab PO QAM 03/27/18 09/04/21 History loratadine 10 mg tablet (Claritin) 10 mg PO HS 03/21/20 09/04/21 History metoprolol succinate 25 mg 25 mg PO HS 08/28/21 09/04/21 History tablet,extended release 24 hr clotrimazole 1 % topical cream 1 applic TOPICAL BID 08/29/21 09/04/21 History ergocalciferol (vitamin D2) 1,250 1,250 mcg PO WK 08/29/21 09/04/21 History mcg (50,000 unit) capsule famotidine 20 mg tablet 20 mg PO BID 08/29/21 09/04/21 History lansoprazole 30 mg capsule,delayed 30 mg PO HS 09/04/21 09/04/21 History release (Prevacid) Patient History Medical History Abnormal EEG Ankylosing spondylitis Anxiety and depression Change in vision Chest pain Chest pain COVID-19 Degenerative disc disease Dizziness DVT (deep venous thrombosis) Eustachian tube dysfunction Fatigue GERD (gastroesophageal reflux disease) Heart palpitations High cholesterol History of bradycardia History of bulimia History of pre-eclampsia Insomnia Iron deficiency anemia Migraine Morbid obesity with BMI of 40.0-44.9, adult Seasonal allergies Thoracic disc disease Vitamin B12 deficiency Vitamin D deficiency Surgical History History of cardiac cath 06/2015 @ [facility] [place]--d/t chest pain, normal no stents History of cholecystectomy History of esophagogastroduodenoscopy (EGD) History of wisdom tooth extraction Family History Father Hypertension Mother Diabetes Grandfather (Maternal) Diabetes Coronary heart disease Myocardial infarction Congestive heart failure Colorectal cancer Grandfather (Paternal) Diabetes Coronary heart disease Myocardial infarction, Onset Age: 50 Grandmother (Paternal) Pulmonary emphysema Sick sinus syndrome Diabetes Pacemaker Grandmother (Maternal) Family history of diabetes mellitus Aunt Pulmonary emphysema Family/Other Myocardial infarction, Onset Age: 37 Coronary heart disease Uncle Stroke Other Asthma Lymphoma No family history of adverse response to anesthesia Denies family history of Ovarian cancer Prostate cancer Breast cancer Social History Smoking Status: Never smoker Tobacco Type: Cigarettes Second Hand Exposure: No; Hx Alcohol Use: No Hx Substance Use: No Preferred Language: Icelandic Communication Ability: Effective Communication Tools: Other Visual Impairment: No Limitations Hearing Ability: Normal Scrap Wheeler Required: No Beliefs That Will Affect Care: None marital status: Current Living Situation: Spouse and Family Current Living Situation Comment: Lives with and daughter current occupational status: unemployed Other Information That Helps Us Care for You: No Feels Safe at Home: Yes Safety Concerns: Feels Safe At This Time Childhood Exposure to Second-Hand Smoke: Yes caffeine: No during the past year weight has: remained stable Dental Care, Regularly: Yes Physical Activity Frequency: 5-6 Times per Week Seatbelt Use: never Sunscreen Use: Yes Assistive Devices: Glasses Review of Systems Review of Systems: ROS: Gen: + weakness/dizziness - chronic; no fevers; + weight loss Eyes: No eye redness, or pain, no recent vision changes Resp: No SOB, no cough Cardio: + palpitations/rapid beats + no chest pain GI: Per HPI, otherwise (-) : Denies pain on urination Skin: No jaundice, itching or new rashes Results & Data ([facility]) Vital Signs (Past 12 Hours) Vital Signs Temp Pulse Pulse Resp BP Pulse Ox 09/05/21 07:42 36.7 C 79 19 110/75 97 09/05/21 03:00 36.8 C 75 18 99/66 L 95 09/04/21 22:46 37.0 C 76 16 112/77 97 09/04/21 22:18 88 Laboratory Results WBC 9.8, Hb 11, Hct 36, Diagnostic Findings WBC 9.8, Hb 11, Hct 36, Plts 295, Na 136, K 3.9, Cl 105, CO2 21, BUN 10, Cr 0.6, LFTs lipase normal Inflammatory markers are elevated : CRP 2.8, Sed 55. (1) Chest pain Chest pain type: precordial pain Qualified Code(s): R07.2 - Precordial pain
[2021-09-05] MEDS ORDERED: GADOBUTROL 65ML VIAL IV ONE (12:51)
--- NOTE | 2021-09-05 12:51 | Magnetic Resonance Report ---
MR VENOGRAM OF THE BRAIN CLINICAL HISTORY: Headache. Visual changes. COMPARISON STUDY: CT of the brain dated 08/28/2021. MRI of the brain performed concurrently on 09/06/19. TECHNIQUE: Sagittal MR venogram of the brain is performed. 3-D reformats are created and assessed. IV contrast was not administered for this examination. FINDINGS: There is no evidence of dural venous sinus thrombosis. The superior sagittal sinus is clear , as are the transverse and sigmoid sinuses. The inferior sagittal sinus is patent. The brain parench yma is normal as visualized. IMPRESSION: Normal MR venogram of the brain. Electronically signed by: Levar Cade M.D. 09/05/2021 12:50 PM
--- NOTE | 2021-09-05 13:22 | Magnetic Resonance Report ---
MR brain wo/w con CLINICAL HISTORY: headache, vision changes TECHNIQUE: Multiplanar and multisequence MR images of the brain were obtained prior to and following administration of gadolinium contrast. Comparison: None available at the time of this dictation. FINDINGS: No abnormal restricted diffusion is identified. The white matter is unremarkable. The ventricular sys tem is normal in appearance. There are no masses, mass effect, or midline shift. No abnormal enhancem ent is seen. There is no evidence of acute intraparenchymal hemorrhage. No extra axial fluid collecti ons are seen. The corpus callosum, pituitary gland, and cerebellar tonsils appear grossly unremarkabl e. Flow voids of the major intracranial arterial vessels are identified. The imaged portions of the para nasal sinuses, mastoid air cells, and orbits are unremarkable. IMPRESSION: No acute abnormalities. ACT 112: Negative or not required by law. Electronically signed by: Juice Smith M.D. 09/05/2021 1:19 PM
--- NOTE | 2021-09-05 17:31 | Hospitalist Progress Note ---
Date of Service September 05, 2021 Assessment & Plan (1) Weakness: (2) Epigastric abdominal pain: (3) POTS (postural orthostatic tachycardia syndrome): Plan: Bilateral lower extremity weakness, in the setting of POTS Associated with dizziness, cognitive changes Patient had an brain MRI in June 2021 with no significant findings Neurology service consulted Probable persistent perceptual postural dizziness For possible idiopathic intracranial hypertension? MRI/MRV ordered If unremarkable, recommending lumbar puncture with opening pressure Also recommend outpatient ophthalmology evaluation to further exclude papilledema, assess visual kowalski Possible small fiber polyneuropathy, consider outpatient EMG as well as skin punch biopsy Possibly secondary to metoprolol? Echo performed June 2021 also unrevealing Cardiology service consulted-for now continue Metroprolol 25 mg XL SLE markers pending CRP, ESR elevated Vitamin B12 normal Folate level normal TSH normal Lyme screen normal Poor nutrition also playing a role Dietitian consulted Persistent epigastric pain D-dimer to rule out PE: Negative GI consulted for possible inpatient EGD--> scheduled for tomorrow a.m. Continue famotidine, Carafate History of asthma Not exacerbation History of fibromyalgia/ankylosing spondylitis Denies myalgias and arthralgias at this point SLE work-up ordered plan of care discussed with patient in detail and at length all questions answered she is understanding, agreeable, comfortable with the plan of care Admission and Anticipated Discharge Date Admission Date: September 04, 2021 Subjective Follow-up for lower extremity weakness, recent diagnosis of POTS, chest pain, etc. Seen resting in bed, not in distress States she feels about the same as yesterday Lower extremity weakness slightly better Still having some dizziness, also chest discomfort Tolerating clear liquids well No other symptom Review of Systems Review of Systems: all noted and negative except for above Physical Exam Physical Exam: General- oriented x 3, not in distress, speaks in sentences wit h no effort or accessory muscle use Eyes- anicteric Neck- no JVD Lungs- clear breath sounds bilaterally, no rales/wheezes Heart- normal rate, regular rhythm; no murmurs Abdomen- normal bowel sounds, nondistended, soft, nontender Extremities- no pretibial edema, no calf tenderness Neuro- alert, oriented x 3; no gross focal neurologic deficits Skin- warm & dry Results & Data Results & Data ([facility]) Vital Signs (Past 12 Hours) Vital Signs Temp Pulse Pulse Pulse Resp BP Pulse Ox 09/05/21 15:58 36.7 C 90 18 126/87 96 09/05/21 15:00 93 H 09/05/21 13:25 36.8 C 87 16 138/96 97 09/05/21 11:49 36.6 C 75 18 128/82 96 09/05/21 09:13 85 09/05/21 07:42 36.7 C 79 19 110/75 97 all noted and reviewed including below
[2021-09-05] MEDS: METOPROLOL SUCC 25MG EXT REL TAB PO SCH (19:43)
[2021-09-05] MEDS: MELATONIN 3 MG TAB PO PRN (21:58)
[2021-09-06] MEDS: D5NSS + 20MEQ KCL 20 MEQ/1,000 ML BAG IV SCH ×3 (05:01→18:47)
--- NOTE | 2021-09-06 09:31 | Neurology Progress Note ---
Date of Service September 06, 2021 Assessment & Plan (1) Headache: (2) Weakness: (3) Vision changes: (4) Paresthesia: Plan: I still has some concern for possible idiopathic intracranial hypertension in this patient. There are some potential soft signs on her MRI and MRV of the brain that could be consistent with increased intracranial pressure. No masses or space-occupying lesions identified. I would like her to have a lumbar puncture with opening pressure completed in radiology and have ordered this test. If patient does have a significantly elevated opening pressure would recommend starting treatment with Diamox. Would typically start with extended release Diamox Sequels, 500 mg twice daily. Would recommend outpatient ophthalmology evaluation to further evaluate for papilledema, visual kowalski and OCT testing. Would recommend outpatient lower extremity EMG including repetitive stimulation. Would consider pursuing outpatient skin punch biopsy to further assess for possible small fiber neuropathy. For patient's perceptual dizziness, she does inform me that she has an appointment pending with ENT. 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 Daksha Vera. She may want to follow-up at a specialized vestibular center for this issue. Admission and Anticipated Discharge Date Admission Date: September 04, 2021 Subjective Follow-up for headaches, vision changes, weakness The patient continued to complain of headache, pulsatile swishing sounds in the head and ears, transient vision disturbances, sometimes a halo around objects. Vision disturbances not clearly triggered by changes in posture. Denies significant change in her lower extremity burning pain although indicates that her weakness feels slightly improved. Complains of episodes of perceptual rocking motion and indicates that she has an appointment pending with ENT. Review of Systems Eyes: as per Subjective / HPI; no diplopia and no eye pain Neurologic: + gait abnormality, + unsteadiness, + paresthesia and + headache(s); no memory loss Results & Data ([facility]) Vital Signs (Past 12 Hours) Vital Signs Temp Pulse Pulse Resp BP BP Pulse Ox 09/06/21 07:00 36.9 C 73 82 18 132/90 100 09/06/21 03:09 36.6 C 85 20 139/96 96 09/05/21 23:30 68 09/05/21 22:59 37.2 C 92 H 16 126/72 96 Diagnostic Findings MRI and MRV of the brain completed yesterday. I reviewed the images as well as the radiologist's interpretation of these tests. Per my independent review, the left transverse sinus does appear diminutive as compared to the right per my review of the images, probably normal variant. The lateral ventricles are somewhat small or slitlike per my review, but again, could be within normal limits. The pituitary gland appears somewhat flattened in the skull base but probably not classic for partially empty sella. Radiology impression was that both studies were normal. Exam (Neuro) Neurologic: Oriented to:: Person, Place and Time Memory: Short Term Intact and Remote Intact Attention: Span Intact and Concentration Intact Speech Fluency: negative Dysarthria or Dysfluency Fund of Knowledge: Current Events, Past History and Vocabulary Cranial Nerves: Normal II, III, IV, and VII Motor Strength: Normal Lower Extremities and Normal Upper Extremities Muscle Bulk/Involuntary Movements: No Involuntary Movements PG Care Time/CCT Total # of Minutes Spent Total Time Spent with Patient: Total time spent is greater than 50% in coordination of care (as documented) at patient's floor/unit and/or counseling patient: Coding Level of Care Code 85274 Subseq Hosp Care Lvl 2 Diagnoses Headache R51.9; G89.29 Headache chronicity pattern: chronic headache Headache type: unspecified Intractability: intractable Weakness R53.1 Vision changes H53.9 Paresthesia R20.2 (1) Headache Headache chronicity pattern: chronic headache Headache type: unspecified Intractability: intractable Qualified Code(s): R51.9 - Headache, unspecified; G89.29 - Other chronic pain
[2021-09-06] MEDS: FAMOTIDINE 20 MG TAB PO SCH ×2 (10:06→20:39)
--- NOTE | 2021-09-06 10:47 | History & Physical Bridge Note ---
Date of Service September 06, 2021 History & Physical Bridge Note I have examined the patient, reviewed the History & Physical and in the interval since the performance of the History & Physical I have noted the following changes of clinical significance: no changes noted EGD Patient was explained in detail regarding risks, benefits, limitations and alternatives of the above endoscopic procedure. Risks of intravenous sedation used for procedure were also explained. Risks include, but not limited to perforation, bleeding, infection, respiratory distress, cardiac arrest and . Patient is also aware about the possibility of missed lesion. Patient's questions were answered. The patient verbalized understanding the information and agreed to undergo the procedure.
--- NOTE | 2021-09-06 11:37 | Anesthesiology Consultation ---
Date of Service September 06, 2021 Assessment & Plan Chart Review Chart Review: Acceptable Risk for Surgery Consults Requested none ASA ASA2 Proposed Anesthesia Anesthesia Type: MAC History Surgery Operation Date: 09/06/21 16:30 Proposed Procedures p Esophagogastroduodenoscopy Dr Mcmillan - Abigail Mcmillan MD Height/Weight Height: 5 ft 2 in Weight: 111.7 kg Allergies Allergy/AdvReac Type Severity Reaction Status Date / Time amoxicillin Allergy Severe ANAPHYLAXIS Verified 09/04/21 17:44 clavulanic acid Allergy Severe ANAPHYLAXIS Verified 09/04/21 17:44 Iodinated Contrast Media Allergy Severe Hives, Verified 09/04/21 17:44 tongue swelling doxycycline Allergy Intermediate Rash Verified 09/04/21 17:44 egg Allergy Intermediate Hives Verified 09/04/21 17:44 fish derived Allergy Intermediate Hives Verified 09/04/21 17:44 metronidazole Allergy Intermediate rash Verified 09/04/21 17:44 sulfamethoxazole Allergy Intermediate tongue Verified 09/04/21 17:44 [From Bactrim] swelling trimethoprim [From Bactrim] Allergy Intermediate tongue Verified 09/04/21 17:44 swelling coffee (Coffea arabica) Allergy Unknown per Verified 09/04/21 17:44 allergy testing Penicillins Allergy Unknown per Verified 09/04/21 17:44 allergy testing Medications Home Medications Medication Instructions Recorded Confirmed Last Taken multivitamin 1 tab PO QAM 03/27/18 09/04/21 09/04/21 loratadine 10 mg tablet (Claritin) 10 mg PO HS 03/21/20 09/04/21 09/03/21 metoprolol succinate 25 mg 25 mg PO HS 08/28/21 09/04/21 09/03/21 tablet,extended release 24 hr clotrimazole 1 % topical cream 1 applic TOPICAL BID 08/29/21 09/04/21 09/04/21 08:00 ergocalciferol (vitamin D2) 1,250 1,250 mcg PO WK 08/29/21 09/04/21 Unknown mcg (50,000 unit) capsule famotidine 20 mg tablet 20 mg PO BID 08/29/21 09/04/21 09/04/21 08:00 lansoprazole 30 mg capsule,delayed 30 mg PO HS 09/04/21 09/04/21 09/03/21 release (Prevacid) Active Medications Generic Name Dose Route Start Last Admin Trade Name Freq PRN Reason Stop Dose Admin Famotidine 20 mg 09/04/21 21:01 09/06/21 10:06 Famotidine 20 Mg Tab PO 10/04/21 21:00 Not Given BID ANNA Potassium Chloride/Dextrose/Sod Cl 20 meq in 1,000 mls @ 125 mls/hr 09/04/21 21:01 09/06/21 10:51 D5nss + 20meq Kcl IV 10/04/21 21:00 0 mls/hr .Q8H ANNA Infusion Melatonin 3 mg 09/04/21 22:37 09/05/21 21:58 Melatonin 3 Mg Tab PO 10/04/21 22:36 3 mg HS PRN Administration Sleep Metoprolol Succinate 25 mg 09/05/21 21:00 09/05/21 19:43 Metoprolol Succ 25mg Ext Rel Tab PO 10/05/21 20:59 25 mg QPM ANNA Administration NPO Date Last Intake of Fluids: 09/05/21 Time Last Intake of Fluids: 00:00 Date Last Intake of Solids: 09/05/21 Time Last Intake of Solids: 00:00 Past Medical History Medical History Abnormal EEG Ankylosing spondylitis Anxiety and depression Change in vision Chest pain Chest pain COVID-19 Degenerative disc disease Dizziness DVT (deep venous thrombosis) Eustachian tube dysfunction Fatigue GERD (gastroesophageal reflux disease) Heart palpitations High cholesterol History of bradycardia History of bulimia History of pre-eclampsia Insomnia Iron deficiency anemia Migraine Morbid obesity with BMI of 40.0-44.9, adult Seasonal allergies Thoracic disc disease Vitamin B12 deficiency Vitamin D deficiency Past Family History Family History Father Hypertension Mother Diabetes Grandfather (Maternal) Diabetes Coronary heart disease Myocardial infarction Congestive heart failure Colorectal cancer Grandfather (Paternal) Diabetes Coronary heart disease Myocardial infarction, Onset Age: 50 Grandmother (Paternal) Pulmonary emphysema Sick sinus syndrome Diabetes Pacemaker Grandmother (Maternal) Family history of diabetes mellitus Aunt Pulmonary emphysema Family/Other Myocardial infarction, Onset Age: 37 Coronary heart disease Uncle Stroke Other Asthma Lymphoma No family history of adverse response to anesthesia Denies family history of Ovarian cancer Prostate cancer Breast cancer Past Surgical History Surgical History History of cardiac cath 06/2015 @ [facility] [place]--d/t chest pain, normal no stents History of cholecystectomy History of esophagogastroduodenoscopy (EGD) History of wisdom tooth extraction Social History Smoking Status: Never smoker Hx Alcohol Use: No Alcohol type: beer alcohol intake frequency: holidays/special occasions only Hx Substance Use: No substance use type: does not use Physical Exam Vital Signs Last Vital Signs Temp 36.5 C 09/06/21 11:18 Pulse 84 09/06/21 11:18 Resp 18 09/06/21 11:18 BP 117/95 09/06/21 11:18 Pulse Ox 100 09/06/21 11:18 Testing Laboratory Results 09/04/21 16:19 09/04/21 16:19 Urine Color Yellow 09/05/21 00:01 Urine Appearance Clear (Clear) 09/05/21 00:01 Urine pH 7.5 (4.5-7.5) 09/05/21 00:01 Ur Specific [place] 1.009 (1.000-1.030) 09/05/21 00:01 Urine Protein Negative (Negative) 09/05/21 00:01 Urine Glucose (UA) Negative (Negative) 09/05/21 00:01 Urine Ketones Negative (Negative) 09/05/21 00:01 Urine Nitrite Negative (Negative) 09/05/21 00:01 Ur Leukocyte Esterase Negative (Negative) 09/05/21 00:01
--- NOTE | 2021-09-06 12:11 | GI REPORT ---
Patient Name: Verna Brown Procedure Date: 09/06/2021 11:20 AM Date of : 1985 Admit Type: Inpatient Age: 35 Gender: Female Attending MD: Abigail Mcmillan MD Procedure: Upper GI endoscopy Providers: Abigail Mcmillan MD Referring MD: Dalia Xavier Md Indications: Epigastric abdominal pain Medicines: Propofol per Anesthesia Complications: No immediate complications. Estimated Blood Loss: Estimated blood loss: none. Procedure: Pre-Anesthesia Assessment: - Prior to the procedure, a History and Physical was performed, and patient medications, allergies and sensitivities were reviewed. The patient's tolerance of previous anesthesia was reviewed. - The risks and benefits of the procedure and the sedation options and risks were discussed with the patient. All questions were answered and informed consent was obtained. - Patient identification and proposed procedure were verified prior to the procedure by the physician and the nurse. The procedure was verified in the procedure room. - Pre-procedure physical examination revealed no contraindications to sedation. After obtaining informed consent, the endoscope was passed under direct vision. Throughout the procedure, the patient's blood pressure, pulse, and oxygen saturations were monitored continuously. The Scope was introduced through the mouth, and advanced to the second part of duodenum. The upper GI endoscopy was accomplished without difficulty. The patient tolerated the procedure well. 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 The examined esophagus was normal. Mildly erythematous mucosa was found in the stomach. Biopsies were taken with a cold forceps for Helicobacter pylori testing. Verification of patient identification for the specimen was done by the physician and nurse using the patient's name and date. The duodenal bulb and second portion of the duodenum were normal. Biopsies were taken with a cold forceps for histology. Impression: - Ectopic gastric mucosa in the upper third of the esophagus. - Normal esophagus. - Erythematous mucosa in the stomach. Biopsied. - Normal duodenal bulb and second portion of the duodenum. Biopsied. Recommendation: - [facility]. - Await pathology results. - Trial of Bentyl. - Recall GI if needed. Abigail Mcmillan MD 09/06/2021 12:11:05 PM Note Initiated On: 09/06/2021 11:20 AM Number of Addenda: 0 I attest to the content of the Intraoperative Record and orders documented therein, exceptions below {[id number]}
--- NOTE | 2021-09-06 14:20 | Anesthesiology Progress Note ---
Date of Service September 06, 2021 Anesthesia Post Procedure Vital Signs Vital Signs: Temp Pulse Pulse Pulse Resp BP BP 09/06/21 12:27 78 18 118/74 09/06/21 12:15 76 18 113/69 09/06/21 12:00 102 H 16 108/64 09/06/21 11:18 36.5 C 84 18 117/95 09/06/21 07:00 36.9 C 73 82 18 132/90 09/06/21 03:09 36.6 C 85 20 139/96 09/05/21 23:30 68 09/05/21 22:59 37.2 C 92 H 16 126/72 09/05/21 21:01 09/05/21 19:00 36.8 C 83 16 156/103 H 09/05/21 15:58 36.7 C 90 18 126/87 09/05/21 15:00 93 H Pulse Ox Pulse Ox 09/06/21 12:27 99 09/06/21 12:15 98 09/06/21 12:00 97 09/06/21 11:18 100 09/06/21 07:00 100 09/06/21 03:09 96 09/05/21 23:30 09/05/21 22:59 96 09/05/21 21:01 96 09/05/21 19:00 100 09/05/21 15:58 96 09/05/21 15:00 Pain Intensity Generalized: Pain Intensity: 4 Transfer of Care Handoff Completed per policy Notes Mental Status: alert / awake / arousable and participated in evaluation Patient Amnestic to Procedure: Yes Nausea / Vomiting: adequately controlled Pain: adequately controlled Airway Patency, RR, SpO2: stable & adequate BP & HR: stable & adequate Hydration State: stable & adequate Anesthetic Complications: no major complications apparent
--- NOTE | 2021-09-06 15:10 | Fluoroscopy Report ---
FLUOROSCOPICALLY GUIDED LUMBAR PUNCTURE CLINICAL HISTORY: Headache. Vision changes. FLUOROSCOPY TIME: 0.4 minutes. A single fluoroscopic spot image of the lumbar spine. PROCEDURE: The procedure, risks and benefits were discussed with the patient including the risk of s herve headache, bleeding and infection. The patient agreed to the procedure and informed written cons ent was obtained. The procedure was performed by Dr. Escamilla following a timeout. The left L3-L4 in terlaminar space was targeted. Skin overlying the space was prepped and draped in the usual sterile f ashion and local anesthesia was achieved with 1% lidocaine. Under intermittent fluoroscopic guidance, a 20-gauge x 3 1/2 in. Sprotte needle was inserted into the thecal sac. A total of 10 cc of clear, c olorless cerebral spinal fluid was obtained and spread amongst 4 vials. The patient tolerated the pro cedure well. There were no immediate complications. The specimens were sent to the laboratory at the request of the referring physician. IMPRESSION: Successful fluoroscopic guided lumbar puncture with removal of 10 cc of clear, colorless cerebral spinal fluid. No immediate complications. Opening pressure was 25 cm of H2O. ACT 112: Negative or not required by law. Electronically signed by: El Escamilla M.D. 09/06/2021 3:08 PM
[2021-09-06 15:32] LABS: Total Protein CSF 22.7 mg/dl (15-45)
[2021-09-06 15:42] LABS: Appearance CSF Clear; CSF Count Tube # 3; CSF Xanthrochromic No xanthochromia; Color CSF Colorless; Red Blood Cell CSF (A) 0 /uL (0-); Red Blood Cell CSF (B) 1 /uL (0-); White Blood Cell CSF (A) 4 /uL (0-5); White Blood Cell CSF (B) 6 /uL (0-5)
--- NOTE | 2021-09-06 16:28 | Hospitalist Progress Note ---
Date of Service September 06, 2021 Assessment & Plan (1) POTS (postural orthostatic tachycardia syndrome): (2) Epigastric abdominal pain: Plan: #. Lower extremity weakness, in the setting of POTS #. Elevated ICP: 09/06 LP w/ Opening pressure of 25 CM of H2O Associated with dizziness, cognitive changes Patient had an brain MRI in June 2021 with no significant findings Neurology evaluated, possible ICH --> MRI, MRV, LP (?diamox if pressure elevated). Recs are OP f/u Ophth (Papilledema/ visual field eval and OCT testing), OP EMG, OP skin punch biopsy to assess for possible small fiber neuropathy. F/u with specialized vestibular center for perceptual dizziness. MRI and MRV reviewed, 08/09 LP with opening pressure of 25 cm of water, follow-up with the CSF analysis and serology results. Pt has scheduled OP ENT visit for Perceptual dizziness. Diamox started 09/06 for elevated LP opening pressure. LE weakness possibly secondary to ?? metoprolol ? Echo performed June 2021 also unrevealing Cardiology service consulted- for now continue Metoprolol 25 mg XL (Pt wouldn't want any change in dosage or drugs for beta jairo). CRP and ESR elevated, Vit B12/ Folate WNL, TSH WNL, Lyme Screen negative, SLE markers pending Poor nutrition could be contributing, rattlesnake farmer consulted. #. Persistent epigastric pain Pt reports mid upper belly pain, liz worse 1-2 hours after eating food, and more constant (initially intermittent) after being put on Steroid during her COVID in Jun 2021. D-dimer to rule out PE: Negative GI evaluated, EGD scope on 09/06 --> stomach mucosa erythematous and biopsied, Normal duodenal bulb and 2nd portion which was also biopsied. Await biopsy result. Trial of Bentyl. Continue famotidine, Carafate; trial of Bentyl. Will continue to monitor. #. History of asthma Not in exacerbation #. History of fibromyalgia/ankylosing spondylitis Denies myalgias and arthralgias at this point SLE work-up ordered Admission and Anticipated Discharge Date Admission Date: September 04, 2021 Subjective Patient seen and examined at bedside as a follow-up of BLE weakness in the setting of POTS and persistent epigastric pain. Patient lying in bed, on room air, NAD, no new acute events overnight. Patient reports ongoing upper belly pain which gets exacerbated 1 to 2 hours after eating food per patient which actually started after she was put on a steroid when she was diagnosed with COVID. Patient denies any headache/dizziness/chest pain/palpitation/acute changes in bowel or bladder habit/other review of symptoms. Patient reports decreased appetite at baseline due to ongoing belly pain. Physical Exam Physical Exam: GENERAL: Alert and oriented x3. NAD, on RA. Morbidly obese. HEENT: No pallor, no icterus. Pupils equal, round and reactive to light. Oral mucosa moist. NECK: No JVD, no neck masses. HEART: S1 and S2 heard. Regular rate and rhythm. No murmur, no gallop. RESPIRATORY SYSTEM: Normal AP diameter. No accessory muscle use. No wheezing, no crackles. ABDOMEN: Soft, bowel sounds present, Epigastric tenderness on deep palpation, n o distention. CENTRAL NERVOUS SYSTEM: No facial droop. Speech is clear. Obeys simple commands. Moves extremities. EXTREMITIES: No edema, no erythema seen. Results & Data Results & Data ([facility]) Vital Signs (Past 12 Hours) Vital Signs Temp Pulse Pulse Pulse Resp BP BP 09/06/21 12:27 78 18 118/74 09/06/21 12:15 76 18 113/69 09/06/21 12:00 102 H 16 108/64 09/06/21 11:18 36.5 C 84 18 117/95 09/06/21 07:00 36.9 C 73 82 18 132/90 Pulse Ox 09/06/21 12:27 99 09/06/21 12:15 98 09/06/21 12:00 97 09/06/21 11:18 100 09/06/21 07:00 100
[2021-09-06 16:52] LABS: Cryptococcus neoformans/ga PCR Not Detected (NotDetected); Cytomegalovirus PCR Not Detected (NotDetected); Enterovirus PCR Not Detected (NotDetected); Escherichia coli K1 PCR Not Detected (NotDetected); Haemophilius influenzae PCR Not Detected (NotDetected); Herpes Simplex Virus 1 PCR Not Detected (NotDetected); Herpes Simplex Virus 2 PCR Not Detected (NotDetected); Human Herpes Virus 6 PCR Not Detected (NotDetected); Human Parechovirus PCR Not Detected (NotDetected); Listeria monocytogenes PCR Not Detected (NotDetected); Neisseria meningitidis PCR Not Detected (NotDetected); Streptococcus agalactiae PCR Not Detected (NotDetected); Streptococcus pneumoniae PCR Not Detected (NotDetected); Varicella Zoster Virus PCR Not Detected (NotDetected)
[2021-09-06] MEDS: SUCRALFATE 1 GM TAB PO SCH ×2 (17:48→20:39)
[2021-09-06] MEDS: acetaZOLAMIDE 250 MG TAB PO SCH (20:38)
[2021-09-06] MEDS: DICYCLOMINE HCL 10 MG CAP PO SCH (20:39)
[2021-09-06] MEDS: METOPROLOL SUCC 25MG EXT REL TAB PO SCH (20:39)
[2021-09-06] MEDS: MELATONIN 3 MG TAB PO PRN (23:28)
[2021-09-07 07:07] LABS: Hematocrit (blood only) 35.1 % (37-47); Hemoglobin 11.2 g/dL (12.0-16.0); Mean Corpuscular Hemoglobin 28.3 pg (25-34); Mean Corpuscular Hgb Conc 31.9 g/dL (32-36); Mean Corpuscular Volume 88.6 fL (80-100); Mean Platelet Volume 9.6 fL (7.4-10.4); Platelet Count 311 K/uL (130-400); RDW Coefficient of Variation 14.3 % (11.5-14.5); RDW Standard Deviation 46.6 fL (36.4-46.3); Red Blood Count 3.96 M/uL (4.2-5.4); White Blood Count 9.77 K/uL (4.8-10.8)
--- NOTE | 2021-09-07 07:32 | Cardiology Progress Note ---
Date of Service September 07, 2021 Assessment & Plan (1) Chest pain: (2) Palpitations: (3) Sinus tachycardia: Plan: Had an outpatient monitor completed recently- results showed numerous patient triggered events correlated to normal sinus rhythm and sinus tachycardia. No concerning arrhythmias. Had a tilt table test on on 08/10/2021, ordered by Dr. Noriega and one previous done at [facility]. Both times testing what negative for orthostatic intolerance. HR were elevated, but not much outside of her baseline. Monitoring during the test showed NSR and ST- no arrhythmias or pauses noted. She has had an extensive cardiac workup in the past regarding her chest pain- she had a cardiac cath done aprox. 5 years which showed normal coronary arteries and a repeat treadmill stress test in 2018 which was normal as well. 1. Declined increase in beta jairo, Has been on and off metoprolol for a number of years, consider trial of alternative beta jairo, pindolol as outpatient. This agent is non formulary not available as inpatient 2. Encouraged hydration, liberal salt intake, compression socks, and changing positions slowly. 3.Neurology consultation noted and appreciated. (4) Idiopathic intracranial hypertension: Plan: Suspected idiopathic intracranial hypertension per neurology. Appreciate neurology's input- started on Diamox yesterday. Plan: Case discussed with Dr. Landry. No further cardiac testing necessary at this time. Admission and Anticipated Discharge Date Admission Date: September 04, 2021 Supervising Physician Co-Signing Physician Notes Supervising Physician Attestation: I have personally performed a history and physical examination on the patient. I agree with the nurse practitioners findings and plan as documented with the following additions. Subjective: Patient without martina symptoms of orthostasis at present. Exam: Regular rhythm, no murmurs Data: Telemetry reveals sinus rhythm in the 60s to 80s. Assessment and Plan: As noted above -Neurology input noted and appreciated. DVT prophylaxis: Ambulatory Juan Pablo Landry, DO Subjective 35 year old female. Presented to [facility] ED with progressive BL leg weakness and persistent chest pain. Has been seen on multiple occasions here due to similar concerns despite a very thorough cardiac workup in the past. Neuro currently following for possible increased intracranial pressure due to abnormalities of the MRI/MRV. Underwent a lumbar puncture yesterday. Because of persistent epigastric pain, saw by GI- underwent EGD yesterday, biopsy of the esophagus taken as well as the mucosa of the stomach. Upon entrance into the room she was resting in bed comfortably. No acute concerns. No chest pain or shortness of breath. Continues to have occasional heart pounding sensations. Patient was placed on Diamox for idiopathic intracranial hypertension by neurology yesterday. Tele: SR 80-100s, now 70s this am. Review of Systems Review of Systems: All systems reviewed & are unremarkable except as noted in HPI & below Physical Exam Physical Exam: General: no acute distress and stated age Eyes: conjunctiva are pink and non-injected, sclera clear Neck: normal jugular venous pulse, no hepatojugular reflux Chest: normal shape and normal respiratory effort Lungs: clear to auscultation and percussion Cardiac Exam: - regular heart sounds, no murmurs, rubs, or gallops Abdomen: abdomen soft, non-tender, obese Musculoskeletal: no gait disturbance, no weakness Extremities: no edema and no cyanosis Neuro: grossly normal exam Psych: appropriate affect and insight. Results & Data ([facility]) Vital Signs (Past 12 Hours) Vital Signs Temp Pulse Pulse Pulse Resp BP BP 09/07/21 03:29 36.7 C 75 18 110/70 09/07/21 00:48 85 09/07/21 00:03 36.9 C 84 18 113/73 09/06/21 21:00 09/06/21 19:24 36.8 C 86 18 120/81 Pulse Ox Pulse Ox 09/07/21 03:29 97 09/07/21 00:48 09/07/21 00:03 95 09/06/21 21:00 98 09/06/21 19:24 96 Laboratory Results CBC 09/07/21 Range/Units 06:43 WBC 9.77 (4.8-10.8) K/uL RBC 3.96 L (4.2-5.4) M/uL Hgb 11.2 L (12.0-16.0) g/dL Hct 35.1 L (37-47) % Plt Count 311 (130-400) K/uL Comprehensive Metabolic Panel 09/07/21 Range/Units 06:43 Sodium 136 (136-145) mmol/L Potassium 3.8 (3.5-5.1) mmol/L Chloride 107 (98-107) mmol/L Carbon Dioxide 24 (21-32) mmol/L BUN 6 (6-23) mg/dl Creatinine 0.68 (0.6-1.2) mg/dl Glucose 92 (70-99(Fasting)) mg/dl Calcium 9.1 (8.5-10.1) mg/dl Intake and Output 09/06/21 09/07/21 09/07/21 22:59 06:59 14:59 Intake Total 317.5 / 1177.917 250 / 1177.917 Output Total Balance 317.5 / 1176.917 249 / 1176.917 Intake: IV 167.5 / 777.917 D5nss + 20Meq KCl 20 meq In 1, 167.5 / 777.917 000 ml @ 125 mls/hr IV .Q8H [facility] Rx#:[id number] Oral 150 / 400 250 / 400 Output: # Bowel Movements Other: # Unmeasured Voids 2 Weight 109.5 kg Weight Measurement Method [facility] (1) Chest pain Chest pain type: precordial pain Qualified Code(s): R07.2 - Precordial pain
[2021-09-07 07:33] LABS: BUN Creatinine Ratio 8.8 (10-20); Calcium 9.1 mg/dl (8.5-10.1); Creatinine Clr Calc Pharmacy 137.2 ml/min; Est GFR (African American) 133.2 ml/min; Est GFR (Non-African American) 114.9 ml/min; Magnesium 2.1 mg/dl (1.7-2.4); Phosphorus 3.8 mg/dl (2.5-4.9); Potassium 3.8 mmol/L (3.5-5.1)
[2021-09-07] MEDS: SUCRALFATE 1 GM TAB PO SCH ×4 (08:53→21:22)
[2021-09-07] MEDS: FAMOTIDINE 20 MG TAB PO SCH ×2 (08:54→21:22)
[2021-09-07] MEDS: DICYCLOMINE HCL 10 MG CAP PO SCH ×3 (08:54→21:22)
[2021-09-07] MEDS: acetaZOLAMIDE 250 MG TAB PO SCH ×2 (08:55→21:23)
--- NOTE | 2021-09-07 09:40 | Neurology Progress Note ---
Date of Service September 07, 2021 Assessment & Plan (1) Idiopathic intracranial hypertension: (2) Weakness: (3) Paresthesia: Plan: I suspect this patient has mild idiopathic intracranial hypertension. Her CSF opening pressure is mildly elevated (25 cm H2O) she has effacement or narrowing of the left transverse sinus and flattening of the posterior aspects of the globes, small lateral ventricles, and a partially empty sella per my review of the images. I would suggest that she continue with Diamox 500 mg twice daily for the time being. Would like her to have an outpatient ophthalmology assessment to include assessment for papilledema, OCT evaluation, and formal visual field evaluation. Patient will also need outpatient EMG of the lower limbs to include repetitive stimulation. Would also consider obtaining a skin punch biopsy to further evaluate for possible small fiber neuropathy. Persistent feeling of dizziness. 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 Patient should be referred to a vestibular center for this issue. She will need periodic ongoing follow-up in neurology clinic and ophthalmology for management of suspected idiopathic intracranial hypertension. Admission and Anticipated Discharge Date Admission Date: September 04, 2021 Subjective Follow-up for headaches, weakness, dizziness The patient continues to complain of symptoms including head pressure, dizziness, transient vision disturbances. She does remark that her dizziness tends to get worse when she is upright rather than lying flat. She complains of a pressure/pulsatile sensation in her head and ears. Also complains of mild lower extremity weakness and distal lower extremity neuropathic pain as before, no significant change compared with yesterday. Patient did complete the requested lumbar puncture yesterday which did reveal a mildly elevated opening pressure, 25 cm H2O. I discussed these results with her hospitalist physician and had recommended starting her on Diamox 500 mg twice daily. Review of Systems Eyes: as per Subjective / HPI; no diplopia and no eye pain Neurologic: + generalized weakness, + paresthesia and + headache(s); no tremor(s) Results & Data ([facility]) Vital Signs (Past 12 Hours) Vital Signs Temp Pulse Pulse Pulse Resp BP BP 09/07/21 07:55 36.9 C 73 18 115/56 L 09/07/21 06:15 73 09/07/21 03:29 36.7 C 75 18 110/70 09/07/21 00:48 85 09/07/21 00:03 36.9 C 84 18 113/73 Pulse Ox 09/07/21 07:55 96 09/07/21 06:15 09/07/21 03:29 97 09/07/21 00:48 09/07/21 00:03 95 Laboratory Results WBC 9.77, hemoglobin 11.2, hematocrit 35.1, MCV 88.6, platelet count 311, sodium 136, potassium 3.8, BUN 6, creatinine 0.68, glucose 92, calcium 9.1, magnesium 2.1. CSF clear, colorless, no xanthochromia, CSF WBC 4, RBC 0, CSF glucose 54, total protein 22.7, CSF meningoencephalitis bio fire panel negative Diagnostic Findings Lumbar puncture completed yesterday revealed an opening pressure of 25 cm H2O. Exam (Neuro) Neurologic: Oriented to:: Person, Place and Time Memory: Short Term Intact and Remote Intact Attention: Span Intact and Concentration Intact Speech Fluency: negative Dysarthria or Dysfluency Fund of Knowledge: Current Events, Past History and Vocabulary Cranial Nerves: Normal II, III, IV, , V, VII, VIII, IX, X, XI and XII Motor Strength: Normal Lower Extremities and Normal Upper Extremities Coordination: negative Finger-Nose Abnormal PG Care Time/CCT Total # of Minutes Spent Total Time Spent with Patient: Total time spent is greater than 50% in coordination of care (as documented) at patient's floor/unit and/or counseling patient: Coding Level of Care Code 10078 Subseq Hosp Care Lvl 2 Diagnoses Idiopathic intracranial hypertension G93.2 Weakness R53.1 Paresthesia R20.2
--- NOTE | 2021-09-07 17:11 | Hospitalist Progress Note ---
Date of Service September 07, 2021 Assessment & Plan (1) POTS (postural orthostatic tachycardia syndrome): (2) Epigastric abdominal pain: Plan: #. Lower extremity weakness, in the setting of POTS #. Mild idiopathic intracranial HTN: 09/06 LP w/ Opening pressure of 25 CM of H2O Associated with dizziness, cognitive changes Patient had an brain MRI in June 2021 with no significant findings Neurology evaluated, diamox 500mg BID and f/u w/ neuro as OP. Recs are OP f/u Ophth (Papilledema/ visual field eval and OCT testing), OP EMG, OP skin punch biopsy to assess for possible small fiber neuropathy. F/u with specialized vest ibular center for perceptual dizziness. MRI and MRV reviewed, 08/09 LP with opening pressure of 25 cm of water, CSF serology negative, CSF analysis WNL.CSF cytology neg for malignancy. Pt has scheduled OP ENT visit for Perceptual dizziness. Diamox started 09/06 for elevated LP opening pressure. LE weakness possibly secondary to ?? metoprolol ? Echo performed June 2021 also unrevealing Cardiology service consulted- for now continue Metoprolol 25 mg XL (Pt wouldn't want any change in dosage or drugs for beta jairo). CRP and ESR elevated, Vit B12/ Folate WNL, TSH WNL, Lyme Screen negative, SLE markers pending Poor nutrition could be contributing, general supervisor consulted. #. Persistent epigastric pain Pt reports mid upper belly pain, liz worse 1-2 hours after eating food, and more constant (initially intermittent) after being put on Steroid during her COVID in Jun 2021. D-dimer to rule out PE: Negative GI evaluated, EGD scope on 09/06 --> stomach mucosa erythematous and biopsied, Normal duodenal bulb and 2nd portion which was also biopsied. Await biopsy result. Trial of Bentyl. Continue famotidine, Carafate; trial of Bentyl. Will continue to monitor. #. History of asthma Not in exacerbation #. History of fibromyalgia/ankylosing spondylitis Denies myalgias and arthralgias at this point SLE work-up ordered Disposition: likely DC tomorrow. Admission and Anticipated Discharge Date Admission Date: September 04, 2021 Subjective Patient seen and examined at bedside as a follow-up of BLE weakness in the setting of POTS and persistent epigastric pain. Patient lying in bed, on room air, NAD, no new acute events overnight. Patient reports ongoing upper belly pain but has been slightly improving today. Patient denies any headache/dizziness/chest pain/palpitation/acute changes in bowel or bladder habit/other review of symptoms. Patient reports decreased appetite at baseline due to ongoing belly pain. Physical Exam Physical Exam: GENERAL: Alert and oriented x3. NAD, on RA. Morbidly obese. HEENT: No pallor, no icterus. Pupils equal, round and reactive to light. Oral mucosa moist. NECK: No JVD, no neck masses. HEART: S1 and S2 heard. Regular rate and rhythm. No murmur, no gallop. RESPIRATORY SYSTEM: Normal AP diameter. No accessory muscle use. No wheezing, no crackles. ABDOMEN: Soft, bowel sounds present, Epigastric tenderness on deep palpation - minimal, no distention. CENTRAL NERVOUS SYSTEM: No facial droop. Speech is clear. Obeys simple commands. Moves extremities. EXTREMITIES: No edema, no erythema seen. Results & Data Results & Data ([facility]) Vital Signs (Past 12 Hours) Vital Signs Temp Pulse Pulse Resp BP Pulse Ox 09/07/21 16:53 36.5 C 88 16 122/63 95 09/07/21 14:15 85 09/07/21 12:02 36.7 C 73 16 115/56 L 96 09/07/21 07:55 36.9 C 73 18 115/56 L 96 09/07/21 06:15 73
[2021-09-07] MEDS: METOPROLOL SUCC 25MG EXT REL TAB PO SCH (21:21)
[2021-09-07] MEDS: MELATONIN 3 MG TAB PO PRN (22:59)
--- NOTE | 2021-09-08 07:53 | Cardiology Progress Note ---
Date of Service September 08, 2021 Assessment & Plan (1) Chest pain: (2) Palpitations: (3) Sinus tachycardia: Plan: Had an outpatient monitor completed recently- results showed numerous patient triggered events correlated to normal sinus rhythm and sinus tachycardia. No concerning arrhythmias. Had a tilt table test on on 08/10/2021, ordered by Dr. Noriega and one previous done at [facility]. Both times testing what negative for orthostatic intolerance. HR were elevated, but not much outside of her baseline. Monitoring during the test showed NSR and ST- no arrhythmias or pauses noted. She has had an extensive cardiac workup in the past regarding her chest pain- she had a cardiac cath done aprox. 5 years which showed normal coronary arteries and a repeat treadmill stress test in 2018 which was normal as well. 1. Declined increase in beta jairo, Has been on and off metoprolol for a number of years, consider trial of alternative beta jairo, pindolol as outpatient. This agent is non formulary not available as inpatient 2. Encouraged hydration, liberal salt intake, compression socks, and changing positions slowly. 3.Neurology consultation noted and appreciated. (4) Idiopathic intracranial hypertension: Plan: Suspected idiopathic intracranial hypertension per neurology. Appreciate neurology's input- started on Diamox yesterday. Plan: Case discussed with Dr. Landry. No further cardiac testing necessary at this time. Admission and Anticipated Discharge Date Admission Date: September 04, 2021 Subjective 35 year old female. Presented to [facility] ED with progressive BL leg weakness and persistent chest pain. Has been seen on multiple occasions here due to similar concerns despite a very thorough cardiac workup in the past. Neuro currently following for possible increased intracranial pressure due to abnormalities of the MRI/MRV. Underwent a lumbar puncture 09/06. Because of persistent epigastric pain, saw by GI- underwent EGD 09/06, biopsy of the esophagus taken as well as the mucosa of the stomach. Upon entrance into the room she was resting in bed comfortably. No acute concerns. No chest pain or shortness of breath. Continues to have occasional heart pounding sensations. Patient was placed on Diamox for idiopathic intracranial hypertension by neurology yesterday. Tele: SR 80-100s, now 70s this am. Review of Systems Review of Systems: All systems reviewed & are unremarkable except as noted in HPI & below Physical Exam Physical Exam: General: no acute distress and stated age Eyes: conjunctiva are pink and non-injected, sclera clear Neck: normal jugular venous pulse, no hepatojugular reflux Chest: normal shape and normal respiratory effort Lungs: clear to auscultation and percussion Cardiac Exam: - regular heart sounds, no murmurs, rubs, or gallops Abdomen: abdomen soft, non-tender, obese Musculoskeletal: no gait disturbance, no weakness Extremities: no edema and no cyanosis Neuro: grossly normal exam Psych: appropriate affect and insight. Results & Data ([facility]) Vital Signs (Past 12 Hours) Vital Signs Temp Pulse Pulse Resp BP BP Pulse Ox 09/08/21 06:15 74 09/08/21 03:12 36.7 C 79 18 114/70 100 09/08/21 01:06 94 H 09/07/21 23:15 36.8 C 92 H 18 120/74 97 09/07/21 21:25 80 113/79 Laboratory Results Intake and Output 09/07/21 09/08/21 09/08/21 22:59 06:59 14:59 Intake Total 1290 / 1290 0 / 1290 Balance 1290 / 1290 0 / 1290 Intake: Oral 1290 / 1290 0 / 1290 Other: # Unmeasured Voids 1 1 Weight 109.5 kg 110 kg Weight Measurement Method Standing Scale (1) Chest pain Chest pain type: precordial pain Qualified Code(s): R07.2 - Precordial pain
[2021-09-08] MEDS: acetaZOLAMIDE 250 MG TAB PO SCH ×2 (09:14→20:15)
[2021-09-08] MEDS: FAMOTIDINE 20 MG TAB PO SCH ×2 (09:15→20:14)
[2021-09-08] MEDS: DICYCLOMINE HCL 10 MG CAP PO SCH ×3 (09:15→20:15)
[2021-09-08] MEDS: SUCRALFATE 1 GM TAB PO SCH ×4 (09:16→20:13)
--- NOTE | 2021-09-08 09:19 | Neurology Progress Note ---
Date of Service September 08, 2021 Assessment & Plan (1) Idiopathic intracranial hypertension: (2) Weakness: (3) Paresthesia: Plan: Suspected mild idiopathic intracranial hypertension. Continue with Diamox 500 mg twice daily for the time being. Patient will need an outpatient ophthalmology evaluation. Patient does have a postural headache currently, worse with upright posture, improved modestly with lying flat. Continue to monitor this issue. May have a spinal headache after lumbar puncture. Encourage hydration. If this issue persists or intensifies would consider consultation with anesthesia for blood patch. Weakness and paresthesias. Plan for outpatient EMG with repetitive stimulation. Consider skin punch biopsy to exclude small fiber neuropathy as well. Tachycardia/POTS type picture, following with cardiology. Managing beta- jairo. Admission and Anticipated Discharge Date Admission Date: September 04, 2021 Subjective Follow-up for suspected idiopathic intracranial hypertension, weakness, paresthesia The patient continues to complain of frontal headache, although her headaches seem to be worse when upright, and improves modestly with lying flat. She complains of intermittent vision disturbances, flashes of light, halo, rainbows. Lower extremity paresthesias and mild weakness unchanged. Has been able to ambulate freely to the restroom. Denies any significant side effects since she started Diamox recently. Does complain of some chronic cervicalgia. Review of Systems Musculoskeletal: + neck pain and + muscle weakness Neurologic: as per Subjective / HPI and + headache(s) Results & Data ([facility]) Vital Signs (Past 12 Hours) Vital Signs Temp Pulse Pulse Resp BP BP Pulse Ox 09/08/21 07:54 36.8 C 74 18 109/56 L 96 09/08/21 06:15 74 09/08/21 03:12 36.7 C 79 18 114/70 100 09/08/21 01:06 94 H 09/07/21 23:15 36.8 C 92 H 18 120/74 97 09/07/21 21:25 80 113/79 Diagnostic Findings Patient did have an MRI of the cervical spine completed at outside facility August 10, 2019, normal study. Exam (Neuro) Neurologic: Oriented to:: Person, Place and Time Memory: Short Term Intact and Remote Intact Attention: Span Intact and Concentration Intact Speech Fluency: negative Dysarthria or Dysfluency Fund of Knowledge: Current Events, Past History and Vocabulary Cranial Nerves: Normal II, III, IV, and VII Motor Strength: Normal Lower Extremities and Normal Upper Extremities Muscle Bulk/Involuntary Movements: No Involuntary Movements Coordination: Normal Details: Had patient sit upright in bed. Headache increased to a 4-5 out of 10 in severity with upright posture, primarily frontal, some radiation posteriorly. Improved to a 2 out of 10 with lying flat. Coding Level of Care Code 52243 Subseq Hosp Care Lvl 2 Diagnoses Idiopathic intracranial hypertension G93.2 Weakness R53.1 Paresthesia R20.2
[2021-09-08] MEDS ORDERED: METOPROLOL TARTRATE 25 MG TAB PO SCH (09:30)
--- NOTE | 2021-09-08 17:15 | Hospitalist Progress Note ---
Date of Service September 08, 2021 Assessment & Plan (1) POTS (postural orthostatic tachycardia syndrome): (2) Epigastric abdominal pain: Plan: #. Lower extremity weakness, in the setting of POTS #. Mild idiopathic intracranial HTN: 09/06 LP w/ Opening pressure of 25 CM of H2O Associated with dizziness, cognitive changes Patient had an brain MRI in June 2021 with no significant findings Neurology evaluated, diamox 500mg BID and f/u w/ neuro as OP. Recs are OP f/u Ophth (Papilledema/ visual field eval and OCT testing), OP EMG, OP skin punch biopsy to assess for possible small fiber neuropathy. F/u with specialized [facility] center for perceptual dizziness. MRI and MRV reviewed, 08/09 LP with opening pressure of 25 cm of water, CSF serology negative, CSF analysis WNL.CSF cytology neg for malignancy. Patient complaining of headache after LP, continue to monitor. Pt has scheduled OP ENT visit for Perceptual dizziness. Diamox started 09/06 for elevated LP opening pressure. Patient to change positions slowly. LE weakness possibly secondary to ?? metoprolol ? Echo performed June 2021 also unrevealing Patient agreeable to increasing metoprolol dose, discussed with cardiology 09/08, will hold on switching to pindolol upon discharge for this time to avoid multiple new medications. CRP and ESR elevated, Vit B12/ Folate WNL, TSH WNL, Lyme Screen negative, SLE markers pending Poor nutrition could be contributing, nurse transplant consulted. #. Persistent epigastric pain Pt reports mid upper belly pain, liz worse 1-2 hours after eating food, and more constant (initially intermittent) after being put on Steroid during her COVID in Jun 2021. D-dimer to rule out PE: Negative GI evaluated, EGD scope on 09/06 --> stomach mucosa erythematous and biopsied (revealed chr inflammation on pathology), Normal duodenal bulb and 2nd portion which was also biopsied. Trial of Bentyl. Continue famotidine, Carafate; trial of Bentyl. Will continue to monitor. #. History of asthma Not in exacerbation #. History of fibromyalgia/ankylosing spondylitis Denies myalgias and arthralgias at this point SLE work-up ordered Disposition: likely DC tomorrow. 09/08: Updated patient's mother at bedside in detail, spent around 20 to 25 minutes. Answered all her questions. Went through discharge instructions including neurology recommendations for follow-up of various specialist. She voiced understanding and was agreeable to the plan of care. Admission and Anticipated Discharge Date Admission Date: September 04, 2021 Subjective Patient seen and examined at bedside as a follow-up of BLE weakness in the setting of POTS and persistent epigastric pain. Patient lying in bed, on room air, NAD, patient reports ongoing/worsening of her headache since after LP. Patient reports ongoing upper belly pain but has been slightly improving today. Overnight patient had tachycardia with heart rate reaching up to 140 when she was up and in bathroom. Patient continues to report her generalized weakness and dizziness present all the time and visual problems. Patient denies any chest pain/palpitation/acute changes in bowel or bladder habit/other review of symptoms. Patient reports decreased appetite at baseline due to ongoing belly pain. Physical Exam Physical Exam: GENERAL: Alert and oriented x3. NAD, on RA. Morbidly obese. HEENT: No pallor, no icterus. Pupils equal, round and reactive to light. Oral mucosa moist. NECK: No JVD, no neck masses. HEART: S1 and S2 heard. Regular rate and rhythm. No murmur, no gallop. RESPIRATORY SYSTEM: Normal AP diameter. No accessory muscle use. No wheezing, no crackles. ABDOMEN: Soft, bowel sounds present, Epigastric tenderness on deep palpation - minimal, no distention. CENTRAL NERVOUS SYSTEM: No facial droop. Speech is clear. Obeys simple commands. Moves extremities. EXTREMITIES: No edema, no erythema seen. Results & Data Results & Data ([place]) Vital Signs (Past 12 Hours) Vital Signs Temp Pulse Pulse Resp BP Pulse Ox 09/08/21 16:52 36.7 C 77 18 119/72 98 09/08/21 14:20 66 09/08/21 10:45 80 121/83 09/08/21 07:54 36.8 C 74 18 109/56 L 96 09/08/21 06:15 74
[2021-09-08] MEDS ORDERED: hydrOXYzine HCl 10 MG TAB PO PRN (19:44)
[2021-09-08] MEDS: METOPROLOL SUCC 25MG EXT REL TAB PO SCH (20:13)
[2021-09-08] MEDS: MELATONIN 3 MG TAB PO PRN (22:42)
[2021-09-08 22:48] LABS: Anti Nuclear Antibody Screen NEGATIVE (NEGATIVE); Anti-dsDNA Recombinant <1 IU/mL; B2 Glycoprotein IgA <2.0 U/mL (<20.0); B2 Glycoprotein IgG <2.0 U/mL (<20.0); B2 Glycoprotein IgM <2.0 U/mL (<20.0); Complement C3 170 mg/dL (83-193); Complement Total(CH50) >60 U/mL (31-60); Phosphatidylserine IgG <10 U/mL (<10)
[2021-09-09] MEDS: SUCRALFATE 1 GM TAB PO SCH ×4 (08:31→20:13)
[2021-09-09] MEDS: DICYCLOMINE HCL 10 MG CAP PO SCH ×3 (08:32→20:13)
[2021-09-09] MEDS: FAMOTIDINE 20 MG TAB PO SCH ×2 (08:32→20:14)
[2021-09-09] MEDS: acetaZOLAMIDE 250 MG TAB PO SCH (08:32)
[2021-09-09] MEDS: METOPROLOL SUCC 25MG EXT REL TAB PO SCH ×2 (08:32→20:13)
--- NOTE | 2021-09-09 10:08 | Neurology Progress Note ---
Date of Service September 09, 2021 Assessment & Plan (1) Headache: (2) Weakness: (3) Paresthesia: (4) Idiopathic intracranial hypertension: (5) Persistent postural-perceptual dizziness: Plan: Possible idiopathic intracranial hypertension. Opening pressure top normal, some suggestive symptomatology, potential supporting soft signs on brain MRI. Not much clinical benefit with Diamox over the past few days, however. Would recommend reducing the dosage of Diamox to 500 mg/day. Outpatient ophthalmology evaluation. Subjective weakness, chronic paresthesias and associated neuropathic pain. Is not weak on general neurological examination, however. Outpatient EMG with repetitive stimulation. To consider skin punch biopsy to exclude small fiber neuropathy. Persistent postural perceptual dizziness. This diagnosis was suggested by a neurologist at [facility], Dr. Daksha Vera, in February 2021. No need for additional inpatient neurological evaluation at this time. Has had MRI and MRV of the brain, lumbar puncture, and CT of the head completed during this current hospitalization. Has previously had carotid ultrasound and MR angiography of the brain. Has also had an unremarkable hypercoagulable evaluation in the past including antiphospholipid antibody syndrome evaluation. Patient does not appear to be experiencing a significant spinal or postural headache syndrome at this point in time. I do not think she would require treatment for spinal headache at this point in time. Admission and Anticipated Discharge Date Admission Date: September 04, 2021 Subjective Follow-up for headache, dizziness, weakness The patient continues to complain of a low-grade frontal occipital headache, tends to be worse when sitting up and moving around. Complains of transient blurry vision, no vision loss or diplopia. Complains of bothersome, fairly persistent low-frequency humming or tinnitus involving both ears, has been a c hronic issue although worse over the past 2 to 3 days. Complains of episodes of dizziness or vertigo, also chronic issue. Complains of a feeling of generalized weakness, especially the legs, associated paresthesias and burning pain, also chronic issue but stable in the context of her current hospitalization. Denies experiencing a significant postural component to her headache this morning. Has been able to ambulate freely in her hospital room without difficulty. No change in speech or swallowing. No lapses in awareness. No tremors or seizure-like activity. No unilateral or focal deficits. Has been taking Diamox 500 mg twice daily for the past few days without much change in her symptomatology. Review of Systems Eyes: + worsening vision; no blind spots, no diplopia and no eye pain Ear, Nose, Mouth, Throat: + tinnitus and + dizziness; no ear pain Neurologic: + generalized weakness and + headache(s) Results & Data ([facility]) Vital Signs (Past 12 Hours) Vital Signs Temp Pulse Pulse Resp BP Pulse Ox 09/09/21 07:31 36.9 C 77 17 125/91 97 09/09/21 07:06 78 09/09/21 04:29 36.7 C 73 18 97/60 L 98 09/09/21 00:17 82 09/08/21 22:55 36.8 C 82 20 117/82 96 Laboratory Results Patient has had a chronically elevated ESR. ESR in September 04, 2021 was 55. In March 2020 was 43, in March 2019 was 62. Patient had a hypercoagulable panel completed at [facility] in March 2018, no significant abnormalities identified. RYAN screen including phospholipid antibodies, antidouble-stranded DNA, complement levels, completed during this hospitalization unremarkable. Diagnostic Findings Opening pressure 25 cm H2O with lumbar puncture completed September 06, 2021. MRI and MRV of the brain ithout gross abnormality per interpreting radiologist. Does have a diminutive left transverse sinus, some flattening of the posterior aspects of the globes, relatively small, almost slitlike lateral ventricles as well as a partially empty sella turcica. These findings on MRI could be seen in idiopathic intracranial hypertension. Carotid ultrasound completed July 12, 2021 was negative for stenosis of either the right or left carotid arterial system. There was antegrade flow in both vertebral arteries. MRA of the head completed at [facility] January 06, 2021 revealed no significant vascular abnormalities in the brain. Exam (Neuro) Eyes: PERRL, normal accommodation and EOM intact bilaterally; no fundoscopic abnormality, no nystagmus and no papilledema Neurologic: Oriented to:: Person, Place and Time Attention: Span Intact and Concentration Intact Speech Fluency: negative Dysarthria or Dysfluency Fund of Knowledge: Current Events, Past History and Vocabulary Cranial Nerves: Normal II, III, IV, , V, VII, VIII, IX, X, XI and XII Motor Strength: Normal Lower Extremities and Normal Upper Extremities Muscle Bulk/Involuntary Movements: No Involuntary Movements Sensation: Light Touch Intact Coordination: Normal; negative Limited Balance or Finger-Nose Abnormal Gait: Normal Station and Gait Coding Level of Care Code 55142 Subseq Hosp Care Lvl 2 Diagnoses Headache R51.9; G89.29 Headache chronicity pattern: chronic headache Headache type: unspecified Intractability: intractable Weakness R53.1 Paresthesia R20.2 Idiopathic intracranial hypertension G93.2 Persistent postural-perceptual dizziness R42 (1) Headache Headache chronicity pattern: chronic headache Headache type: unspecified Intractability: intractable Qualified Code(s): R51.9 - Headache, unspecified; G89.29 - Other chronic pain
--- NOTE | 2021-09-09 13:36 | Communication Note ---
Date of Service: September 09, 2021 Around just prior to afternoon, I got a page from RN saying that patient refused to see me and requested change of doctor. Per RN, she was agreeable for me to process her transfer [facility] (per her wishes) but not willing to see me. I had a call out to [facility] for possible transfer according to patient wishes, [facility] cannot take her due to bed constraints and no acute obvious reason for her to be transferred to [facility] that cannot be done inpatient here or followed up as an outpatient. RN made aware. Can't make patient aware myself as she has denied my service. Of note, patient has denied possibility of SNF or home health in the past including during my conversation with the patient and her mother at bedside conversation. Also, I have noted inconsistency with her history with different providers and for me on different days.
--- NOTE | 2021-09-09 15:31 | Hospitalist Progress Note ---
Date of Service September 09, 2021 Assessment & Plan Plan: Chronic Light headedness -Ongoing and worsening -Extensive workup so far unrevealing other than: 1) mildly elevated opening pressure with LP on 09/06/2021, 2) elevated free T 4 of 10.2 on 08/25 with an inappropriately normal TSH of 2. 3) Chronically elevated ESR, CRP and recently elevated total complement level but with normal C3 and C4 (see below) Likely Idiopathic Intracranial Hypertension -Improved with diamox, dose reduced to 500mg daily -further management per Neurology Likely Hyperthyroidism -free Tr on 08/25 is 10.2 and TSH was 2 -HR is well controlled on metoprolol 25mg QHS -Patient is recommended to follow up with Endocrinology for further evaluation. Certainly hyperthyroidism can explain many of her symptoms and recent weight loss Elevated inflammatory markers -chronically elevated ESR, CRP, total complement level -May be related to her hyperthyroidism versus a rheumatologic disease. Would consider evaluation by Rheumatology as an outpatient Questionable POTS -continue metoprolol 25mg QHS Exertional chest discomfort/dyspnea -Patient has had prior cath 5 years ago with normal coronaries, TTE here is normal, d dimer is negative, CXR negative -Possibly restrictive lung disease from body habitus, reported outpatient spirometry was normal. If ongoing, may consider full PFTs. Patient concern for vascular disease -family history of vascular disease -with above constellation of symptoms, and patient's concern, It is not unreasonable to obtain an MR Angio of her head/neck to evaluate further. 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 She sleeps on first floor to avoid taking the stairs -Would recommend wheelchair and OP physical therapy Plan to discharge home tomorrow if MRA head/neck is normal. Remaining workup and evaluation can be safely pursued as an outpatient. Admission and Anticipated Discharge Date Admission Date: September 04, 2021 Subjective Patient requested an different provider and I am assuming care from Dr Xavier. Verna's chart was reviewed and recent imaging was reviewed Verna feels the Diamox did help relieve the pressure behind her eyes. She still has the chronic sensation of light headedness, she also reports a sensation or hearing a "whooshing" sound when she moves her head and neck. She reports a strong family history of vascular disease and is concerned she may have the same. We reviewed her recent imaging and in fact, she has not had imaging of her arteries of her head/neck other than a carotid ultrasound 06/2021 which was normal. We also discussed strategies for home environmental modifications so that she may return home safely. We will give her a prescription for a wheelchair and she will work with her family to arrange for additional help. I did suggest that Verna seek further evaluation with an Edger Feeder (elevated free T4) and Sheeter Operator (elevated total complement, ESR and CRP) in addition to following up with Neurologist (she has an appointment in 1 month) as well as an port steward. I suggest she receive evaluation by a vascular surgeon as an outpatient as well with her strong family history and her ongoing concerns. Physical Exam Physical Exam: Tearful at times but very pleasant, no acute distress Neck: Thick Respiratory: Breathing comfortably on room air, no wheezing/rhonchi/rales Cardiovascular: Regular rate and rhythm, no murmurs/rubs/gallops Gastrointestinal (Abdomen): Soft, non tender, non distended Musculoskeletal: No edema Neurologic: Awake, alert, spontaneously moving her extremities Results & Data Results & Data ([facility]) Vital Signs (Past 12 Hours) Vital Signs Temp Pulse Pulse Resp BP BP Pulse Ox 09/09/21 15:00 86 09/09/21 11:46 36.9 C 85 19 117/82 97 09/09/21 07:31 36.9 C 77 17 125/91 97 09/09/21 07:06 78 09/09/21 04:29 36.7 C 73 18 97/60 L 98 Medications Administered Current Inpatient Medications Acetaminophen (Acetaminophen 325 Mg Tab) 650 mg PO Q4H PRN PRN Reason: Pain or Fever Stop: 10/04/21 21:00 Last Admin: 09/06/21 20:38 Dose: 650 mg Documented by: Acetazolamide (Acetazolamide 250 Mg Tab) 500 mg PO DAILY ANNA Stop: 10/10/21 08:59 Dicyclomine HCl (Dicyclomine Hcl 10 Mg Cap) 10 mg PO TID ANNA Stop: 09/11/21 20:59 Last Admin: 09/09/21 13:58 Dose: 10 mg Documented by: Famotidine (Famotidine 20 Mg Tab) 20 mg PO BID [facility] Stop: 10/04/21 21:00 Last Admin: 09/09/21 08:32 Dose: 20 mg Documented by: Hydroxyzine HCl (Hydroxyzine Hcl 10 Mg Tab) 10 mg PO QID PRN PRN Reason: Anxiety Stop: 10/08/21 19:43 Melatonin (Melatonin 3 Mg Tab) 3 mg PO HS PRN PRN Reason: Sleep Stop: 10/04/21 22:36 Last Admin: 09/08/21 22:42 Dose: 3 mg Documented by: Metoprolol Succinate (Metoprolol Succ 25mg Ext Rel Tab) 25 mg PO QPM [facility] Stop: 10/05/21 20:59 Last Admin: 09/08/21 20:13 Dose: 25 mg Documented by: Metoprolol Succinate (Metoprolol Succ 25mg Ext Rel Tab) 12.5 mg PO QAM [facility] Stop: 10/09/21 08:59 Last Admin: 09/09/21 08:32 Dose: 12.5 mg Documented by: Ondansetron HCl (Ondansetron Inj 2 Mg/Ml 2 Ml Vial) 4 mg IV Q6H PRN PRN Reason: Nausea Stop: 10/04/21 21:00 Sucralfate (Sucralfate 1 Gm Tab) 1 gm PO QID ANNA Stop: 10/06/21 16:59 Last Admin: 09/09/21 13:58 Dose: 1 gm Documented by:
[2021-09-09] MEDS ORDERED: GADOBUTROL 65ML VIAL IV ONE (17:41)
[2021-09-09 18:22] LABS: Calcium 9.3 mg/dl (8.5-10.1); Potassium 3.5 mmol/L (3.5-5.1)
--- NOTE | 2021-09-09 19:50 | Magnetic Resonance Report ---
MR angio head wo con CLINICAL HISTORY: headache, light headedness. COMPARISON: None. TECHNIQUE: 3-D time of flight MR angiographic images of the brain were also obtained without IV contr ast. FINDINGS: Posterior circulation: Both vertebral arteries, the basilar artery, and both posterior cerebral arter ies are patent. Anterior circulation: Both internal carotid arteries are patent. The anterior cerebral and middle cer ebral arteries are patent bilaterally. There is prominent origin of a cerebral vessel from the M1 seg ment of the left cerebral artery which on a few projections has the appearance of an aneurysm. Howeve r, no definite aneurysm is present. No arterial occlusion, hemodynamically significant stenosis, aneurysm or vascular malformation is see n. IMPRESSION: Essentially normal MRA of the cerebral arteries bilaterally. ACT 112: Negative or not required by law. Electronically signed by: Bharath Melton M.D. 09/09/2021 7:47 PM
--- NOTE | 2021-09-09 19:51 | Magnetic Resonance Report ---
NECK MRA HISTORY: headache, light headedness TECHNIQUE: [id number] and gadolinium-enhanced MRA of the neck was performed both before and after the intravenous administration of contrast. All measurements were calculated based on NASCET criteri a. COMPARISON STUDY: None. FINDINGS: The aortic arch and proximal great vessels are widely patent. There is no significant sten osis, occlusion, or dissection identified within the bilateral common carotid, internal carotid, or v ertebral arteries. IMPRESSION: No significant stenosis, occlusion, or dissection identified within the carotid or vertebral arteries . ACT 112: Negative or not required by law. Electronically signed by: Bharath Melton M.D. 09/09/2021 7:50 PM
[2021-09-09] MEDS: MELATONIN 3 MG TAB PO PRN (22:34)
[2021-09-10] MEDS: FAMOTIDINE 20 MG TAB PO SCH (08:48)
[2021-09-10] MEDS: DICYCLOMINE HCL 10 MG CAP PO SCH (08:49)
[2021-09-10] MEDS: METOPROLOL SUCC 25MG EXT REL TAB PO SCH (08:49)
[2021-09-10] MEDS: SUCRALFATE 1 GM TAB PO SCH (08:50)
[2021-09-10] MEDS ORDERED: acetaZOLAMIDE 250 MG TAB PO SCH (09:00)
--- NOTE | 2021-09-10 17:08 | Discharge Summary ---
Date of Service September 10, 2021 Admission HPI Per Admitting Provider 35-year-old female with history of recently diagnosed POTS, COVID-19, GERD, asthma, fibromyalgia/ankylosing spondylitis, prediabetes presenting with progressive bilateral lower extremity weakness and chest pain. Patient admitted last June for COVID-19 infection. She was also evaluated and treated for chest pain, and lightheadedness. Recently, patient was apparently diagnosed with POTS by cardiology service, and has been started with metoprolol XL 25 mg daily. For the past 2 weeks, the patient has had progressive bilateral lower extremity weakness associated with lightheadedness and cognitive changes. She also has been having persistent epigastric chest pain and has been scheduled to have an upper GI scope on the end of the month. Patient has had multiple ER visits for the past month secondary to above symptoms. Today she presents to the ER with progressively lower extremity weakness and chest pain. Blood work unrevealing. On exam, patient seen resting in bed, not in distress. Does confirm above symptoms, including lower extremity weakness, to the point that she feels like falling whenever she ambulates. No fever/chills, nausea or vomiting. Has been having very poor appetite recently. Principal Diagnosis Chronic light headedness Possible POTS Possible Hyperthyroidism Mild Idiopathic Intracranial Hypertension Discharge Exam Gen- No acute distress, pleasant and comfortable CV- regular rate and rhythm, no murmurs/rubs/gallops Pulm- breathing comfortably on room air, no wheezing/rhonchi/rales Abd- soft Extr- no edema Discharge Data Allergies Allergy/AdvReac Type Severity Reaction Status Date / Time amoxicillin Allergy Severe ANAPHYLAXIS Verified 09/04/21 17:44 clavulanic acid Allergy Severe ANAPHYLAXIS Verified 09/04/21 17:44 Iodinated Contrast Media Allergy Severe Hives, Verified 09/04/21 17:44 tongue swelling doxycycline Allergy Intermediate Rash Verified 09/04/21 17:44 egg Allergy Intermediate Hives Verified 09/04/21 17:44 fish derived Allergy Intermediate Hives Verified 09/04/21 17:44 metronidazole Allergy Intermediate rash Verified 09/04/21 17:44 sulfamethoxazole Allergy Intermediate tongue Verified 09/04/21 17:44 [From Bactrim] swelling trimethoprim [From Bactrim] Allergy Intermediate tongue Verified 09/04/21 17:44 swelling coffee (Coffea arabica) Allergy Unknown per Verified 09/04/21 17:44 allergy testing Penicillins Allergy Unknown per Verified 09/04/21 17:44 allergy testing Consultations 09/04/21 21:01 Consult Cardiology Routine Consult Gastroenterology Routine Consult Neurology Routine Procedures Performed Operation Date: 09/06/21 16:30 Actual Procedures p EGD Biopsy Cytology - Abigail Mcmillan MD Ordered Studies 09/05/21 10:11 MR brain wo/w con Routine MR venography head wo con Routine 09/06/21 09:10 FL lumbar puncture diagnostic Routine 09/09/21 15:21 MR angio head wo con Routine MR angio neck wo/w con Routine Hospital Course (1) POTS (postural orthostatic tachycardia syndrome): (2) Epigastric abdominal pain: Chronic Light headedness -Ongoing and worsening -Extensive workup so far unrevealing other than: 1) mildly elevated opening pressure with LP on 09/06/2021, 2) elevated free T 4 of 10.2 on 08/25 with an inappropriately normal TSH of 2. 3) Chronically elevated ESR, CRP and recently elevated total complement level but with normal C3 and C4 (see below) Likely Idiopathic Intracranial Hypertension -Improved with diamox, dose reduced to 500mg daily -Follow up with Neurology OP, has an appointment in 1 month Likely Hyperthyroidism -free Tr on 08/25 is 10.2 and TSH was 2 -HR is well controlled on metoprolol 12.5mg QAM and 25mg QPM -Patient is recommended to follow up with Endocrinology for further evaluation. Certainly hyperthyroidism can explain many of her symptoms and recent weight loss Elevated inflammatory markers -chronically elevated ESR, CRP, total complement level -May be related to her hyperthyroidism versus a rheumatologic disease. Would consider evaluation by Rheumatology as an outpatient Questionable POTS -continue metoprolol 12.5mg QAM and 25mg QPM Exertional chest discomfort/dyspnea -Patient has had prior cath 5 years ago with normal coronaries, TTE here is normal, d dimer is negative, CXR negative -Possibly restrictive lung disease from body habitus, reported outpatient spirometry was normal. If ongoing, may consider full PFTs. 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 She sleeps on first floor to avoid taking the stairs -Would recommend wheelchair vs walker and physical therapy Home Health Attestation I certify that this patient is under my care and that I, or a physicians assistant art director working with me, had a face to-face encounter that meets the home health [id number] encounter requirements with this patient. The encounter with the patient was in whole, or in part, for the following medical condition, which is the primary reason for home health care (list medical condition): Weakness I certify that, based on my findings, the following services are medically necessary home health services: My clinical findings support the need for the above services because: OT Assess ADL Status and Restore Function w ADLs PT Assessment for Endurance / Balance / Strength PT Eval for Safety and Mobility PT Eval for Safety, Gait Training, Assistive Devices PT Gait and Balance Training, Strengthening and Safety Skilled Nsg Assessment S/S to Report to Provider Vital Signs Further, I certify that my clinical findings support that this patient is homebound (i.e. absences from home require considerable and taxing effort and are for medical reasons or [employer] services or infrequently or of short duration when for other reasons) because: Transportation Assistance/Unable to Leave Home Unassisted Certification for Home Health Services: Based on the above findings, I certify that this patient is confined to the home and needs intermittent custodial care, physical therapy and/or speech therapy or continues to need occupational therapy. The patient is under my care, and I have initiated the establishment of the plan of care. This patient will be followed by a physician who will periodically review the plan of care. Total Time Total Time Spent Total Time Spent (In Minutes): 45 Discharge Plan Discharge Items Patient Disposition: Home - Home Health Services Reason For Visit: WEAKNESS, CHEST PAIN Discharge Diagnosis: Chronic light headedness Possible POTS Possible Hyperthyroidism Mild Idiopathic Intracranial Hypertension Condition on Discharge: Good Activity: Resume your previous activity Driving/Machine Use: No driving until cleared by your PCP Non-emergency contact: Primary Care Provider, Specialist, Neurologist and [facility] [employer] [facility] Call non-emergency contact if: you have any medication questions and your symptoms worsen Follow-up/Referrals: Angela Raza MD [Primary Care Provider] - (Date & Time 09/15/2021 1:40 PM Provider Angela Arevalo MD Department Family Medicine [facility] ) Diet: Regular Addtl Attending Provider Instructions: You were admitted for ongoing light headedness You had extensive workup here which revealed mild Idiopathic Intracranial Hypertension. You were started on Diamox 500mg daily which did help the pressure behind your eyes. Please follow up with Ophthalmology for a full eye Exam Please follow up with Neurology for further evaluation of your symptoms Please follow up with ENT for ringing in your ears (tinnitus) In addition, from your prior labwork, it was discovered that your free T4 is elevated (10) with an inappropriately normal TSH (2). This suggests you have hyperthyroidism, you should see an Hat Br[employer] And Crown Laminating Operator for further evaluation. For your substernal chest discomfort, you had a normal D dimer, normal TTE (ultrasound of your heart), normal CXR. An EGD did show some irritation of your esophagus and you can take Pepcid and Sucralfate for this. Please follow up with your PCP at your scheduled appointment. On the day of discharge you reported an episode of burning with urination. We checked a Urinalysis and if abnormal will reflexively send for urine culture. Because of your multiple antibiotic allergies and single episode of burning with normal vitals--> I recommend no treatment unless confirmed positive Urine Culture. Please follow up with your PCP for results of urine culture. Pending Studies at Discharge: Yes Studies:: Urine Culture Stand-Alone Forms: My [email or web address], Smoking Cessation Medications and DC Order Prescriptions: New sucralfate 1 gram Tablet 1 g PO QID 14 Days Qty: 56 RF: 0 acetazolamide 250 mg Tablet 500 mg PO DAILY 30 Days Qty: 60 RF: 1 metoprolol succinate 25 mg Tablet Extended Release 24 Hr 12.5 mg PO QAM 30 Days Qty: 15 RF: 1 Continued loratadine [Claritin] 10 mg tablet 10 mg PO HS RF: 0 multivitamin Tablet 1 tab PO QAM RF: 0 famotidine 20 mg tablet 20 mg PO BID RF: 0 ergocalciferol (vitamin D2) 1,250 mcg (50,000 unit) capsule 1,250 mcg PO WK RF: 0 clotrimazole 1 % cream 1 applic TOPICAL BID RF: 0 metoprolol succinate 25 mg tablet extended release 24 hr 25 mg PO HS RF: 0 Discontinued lansoprazole [Prevacid] 30 mg capsule,delayed release(DR/EC) 30 mg PO HS RF: 0 Discharge Orders: Discharge Order (Routine); Ordered 09/10/21 Ordered By: Sydney Weiss/Other Patient Handouts: GERD Lifestyle Changes, Soft [place]ett Diet Dc Admission Data Admit Date/Time: 09/04/21 18:52 Attending Provider: Sydney You Admit Provider: Joseph Duong Primary Care Provider: Angela Raza Other Providers: Juan Pablo Landry ; Abigail Mcmillan ; Buddy Braxton ; Dalia Xavier ; Brayden Choi [facility] Other Interventions: Discharge Summary Assessment (RN) Last Done: 09/10/21 11:17
== END 2021-09-10 12:41 | disposition home health service (06) | DRG 103 ==
LOC: ED 15:08 → 2S 18:52 → SUATTDRO 18:52 → 2S 21:06

== ENCOUNTER 2021-09-27 17:40 | Observation (INO) ==
--- NOTE | 2021-09-27 18:44 | Emergency Department Note ---
Impression & Plan Chest pain, Pseudotumor cerebri ED Provider Note NAME: NIRANJAN ROBLES AGE: 36 SEX: F : 1985 ARRIVES VIA: Walk-In INFORMANT: Patient, ED PROVIDER(S): Adam Bob DO CHIEF COMPLAINT: Muscle aches HPI: The patient is a 36-year-old female who presented to the emergency department for an evaluation of chronic issues. The patient is a history of muscle issues muscle pain muscle weakness chest pain as well as intracranial hypertension in the form of pseudotumor cerebri. She had some medication changes recently. 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 She states that her symptoms started worsening especially over the last few days. She called her neurologist and was referred to the emergency department. She is unsure why she was referred to the emergency department as she has been here multiple times especially over the last 6 months. She has had no fever. She said no trauma. Otherwise patient has been compliant with her outpatient medications. ROS: See above HPI for pertinent positives & negatives. A total of 10 systems reviewed and were otherwise negative. PAST MEDICAL HISTORY: See Below PAST SURGICAL HISTORY: See Below FAMILY HISTORY: See Below SOCIAL HISTORY: See Below HOME MEDICATIONS: See Below ALLERGIES: See Below VITALS: See Below PHYSICAL EXAMINATION: GENERAL: Patient is awake alert in no acute distress patient is resting comfort ably and showing no signs of anxiety EYES: The conjunctivae are clear. The pupils are round and reactive. EARS, NOSE, MOUTH AND THROAT: The nose is without any evidence of any deformity. NECK: The neck is nontender and supple. RESPIRATORY: Normal respiratory effort is noted there is no evidence of wheezing rhonchi or rales CARDIOVASCULAR: Regular rate and rhythm noted there no murmurs rubs or gallops normal S1 normal S2. GASTROINTESTINAL: The abdomen is soft. Abdomen is nontender. MUSCULOSKELETAL/EXTREMITIES: There is no evidence of gross deformity full range of motion is noted in the hips and shoulders. SKIN: There is no obvious evidence of any rash. There are no petechiae, pallor or cyanosis noted. NEUROLOGIC: Patient is awake alert and oriented x3 strength is symmetric patellar reflexes are 2+ bilaterally MEDICAL DECISION MAKING: The patient is a 36-year-old female who presented to the emergency department for an evaluation of chest pain and chronic pseudotumor cerebri complaints. The patient has been seen in our facility multiple times especially over the last 6 months. I did review the patient's previous visits. I reviewed the patient's previous neuro imaging as well as laboratory studies. The patient was referred to the emergency department by her neurologist. I discussed her case with the covering neurologist. At this time there is no specific need for any further imaging. I discussed patient's laboratory and radiographic studies with her. The patient was not comfortable being discharged to home although there is no specific indication for admission other than her ongoing chest pain. She has had ongoing chest pain and has a negative cardiac biomarker. At the patient's request I [facility] to evaluate the patient in the emergency department. Triage Nursing notes reviewed. Prior medical records reviewed Vital Signs: reviewed and remarkable for no significant abnormalities Differential diagnosis: Infection, dehydration, metabolic abnormality, hypo/hyperglycemia, electrolyte disturbance, anemia, hypoxia, cardiac sources, intracerebral event, toxicologic, neurologic, as well as other pathologies. ER treatment provided: See below Diagnostics interpreted by me: ECG: EKG was obtained in the emergency department. My interpretation is normal sinus rhythm at 70 bpm. There was no ectopy. There is no acute ST segment abnormalities noted. LVH was suggested by voltage criteria. This was compared to a tracing from September 242021. No changes were noted. Cardiac Monitoring: An order was placed for continuous cardiac monitoring. The monitor shows a rate of 75 bpm with sinus rhythm. Laboratory studies: As stated above and show below. Imaging studies: See below Consultation(s): I discussed this case with Dr Fay who was senior management consultant for Dr Braxton I discussed this case with Dr. Lozano patient's request. He will evaluate the patient in the emergency department. Past Med/Surg History Medical History Abnormal EEG Ankylosing spondylitis Anxiety and depression Change in vision Chest pain Chest pain COVID-19 Degenerative disc disease Dizziness DVT (deep venous thrombosis) Eustachian tube dysfunction Fatigue GERD (gastroesophageal reflux disease) Headache Heart palpitations High cholesterol History of bradycardia History of bulimia History of pre-eclampsia Insomnia Iron deficiency anemia Migraine Morbid obesity with BMI of 40.0-44.9, adult Seasonal allergies Thoracic disc disease Vitamin B12 deficiency Vitamin D deficiency Surgical History History of cardiac cath 06/2015 @ [facility] [place]--d/t chest pain, normal no stents History of cholecystectomy History of esophagogastroduodenoscopy (EGD) History of wisdom tooth extraction Family History Father Hypertension Mother Diabetes Grandfather (Maternal) Diabetes Coronary heart disease Myocardial infarction Congestive heart failure Colorectal cancer Grandfather (Paternal) Diabetes Coronary heart disease Myocardial infarction, Onset Age: 50 Grandmother (Paternal) Pulmonary emphysema Sick sinus syndrome Diabetes Pacemaker Grandmother (Maternal) Family history of diabetes mellitus Aunt Pulmonary emphysema Family/Other Myocardial infarction, Onset Age: 37 Coronary heart disease Uncle Stroke Other Asthma Lymphoma No family history of adverse response to anesthesia Denies family history of Ovarian cancer Prostate cancer Breast cancer Social History Smoking Status: Former smoker Tobacco Type: Cigarettes Second Hand Exposure: No; Hx Alcohol Use: No Hx Substance Use: No Preferred Language: Bahraini Communication Ability: Effective Communication Tools: Other Visual Impairment: No Limitations Hearing Ability: Normal 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 Beliefs That Will Affect Care: None marital status: Current Living Situation: Spouse and Family Current Living Situation Comment: Lives with and daughter current occupational status: unemployed How many Children do You have: 1 Feels Safe at Home: Yes Childhood Exposure to Second-Hand Smoke: Yes caffeine: No during the past year weight has: remained stable Dental Care, Regularly: Yes Physical Activity Frequency: 5-6 Times per Week Seatbelt Use: never Sunscreen Use: Yes Assistive Devices: None Allergies Allergies Allergy/AdvReac Type Severity Reaction Status Date / Time amoxicillin Allergy Severe ANAPHYLAXIS Verified 09/27/21 21:15 clavulanic acid Allergy Severe ANAPHYLAXIS Verified 09/27/21 21:15 Iodinated Contrast Media Allergy Severe Hives, Verified 09/27/21 21:15 tongue swelling doxycycline Allergy Intermediate Rash Verified 09/27/21 21:15 egg Allergy Intermediate Hives Verified 09/27/21 21:15 fish derived Allergy Intermediate Hives Verified 09/27/21 21:15 metronidazole Allergy Intermediate rash Verified 09/27/21 21:15 sulfamethoxazole Allergy Intermediate tongue Verified 09/27/21 21:15 [From Bactrim] swelling trimethoprim [From Bactrim] Allergy Intermediate tongue Verified 09/27/21 21:15 swelling coffee (Coffea arabica) Allergy Unknown per Verified 09/27/21 21:15 allergy testing Penicillins Allergy Unknown per Verified 09/24/21 16:29 allergy testing Home Meds Home Medications Medication Instructions Recorded Confirmed multivitamin 1 tab PO QAM 03/27/18 09/27/21 loratadine 10 mg tablet (Claritin) 10 mg PO HS PRN 03/21/20 09/27/21 metoprolol succinate 25 mg 25 mg PO HS 08/28/21 09/27/21 tablet,extended release 24 hr ergocalciferol (vitamin D2) 1,250 1,250 mcg PO WK 08/29/21 09/27/21 mcg (50,000 unit) capsule ketoconazole 2 % shampoo 1 applic TOPICAL 2XWK 09/24/21 09/27/21 famotidine 20 mg tablet (Pepcid) 20 mg PO DAILY 09/27/21 09/27/21 melatonin 5 mg tablet 5 mg PO HS PRN 09/27/21 09/27/21 Previous Rx's Medication Instructions Recorded triamterene 75 1 tab PO DAILY #30 tab 09/27/21 mg-hydrochlorothiazide 50 mg tablet (Maxzide) Results & Data (ED) Vital Signs Vital Signs - 24 hr 09/27/21 17:50 09/27/21 18:11 09/27/21 18:49 Temperature 36.6 C Temperature Source Temporal Artery Scan Pulse Rate 89 Pulse Rate [Apical] Respiratory Rate 18 Respiratory Effort / Characteristics Non-Labored Respiratory Depth Normal Blood Pressure 124/83 Blood Pressure [Right Arm] Blood Pressure Mean 96 Blood Pressure Mean [Right Arm] Blood Pressure Position Sitting Blood Pressure Position [Right Arm] Pulse Oximetry 97 93 Oxygen Delivery Method Room Air Room Air Room Air Sepsis Recent Fever Within 48 Hours No Sepsis New/Unexplained Change in Mental Status No Sepsis Action Taken by Nursing No Action Required 09/27/21 20:00 09/27/21 22:06 Temperature Temperature Source Pulse Rate Pulse Rate [Apical] 75 Respiratory Rate 22 18 Respiratory Effort / Characteristics Non-Labored Spontaneous Respiratory Depth Normal Blood Pressure Blood Pressure [Right Arm] 136/97 143/84 H Blood Pressure Mean Blood Pressure Mean [Right Arm] 110 103 Blood Pressure Position Blood Pressure Position [Right Arm] Sitting Pulse Oximetry 98 99 Oxygen Delivery Method Room Air Room Air Sepsis Recent Fever Within 48 Hours Sepsis New/Unexplained Change in Mental Status Sepsis Action Taken by Longterm Medications Current Medication List: was personally reviewed by me Laboratory Data Attestation: I reviewed the patient's lab results. Result diagrams: 09/27/21 18:45 09/27/21 18:45 Lab Results 09/27/21 09/27/21 09/27/21 Range/Units 18:22 18:45 18:45 WBC 9.18 (4.8-10.8) K/uL RBC 4.35 (4.2-5.4) M/uL Hgb 11.8 L (12.0-16.0) g/dL Hct 37.8 (37-47) % MCV 86.9 (80-100) fL MCH 27.1 (25-34) pg MCHC 31.2 L (32-36) g/dL RDW Std Deviation 44.9 (36.4-46.3) fL RDW Coeff of Yash 14.1 (11.5-14.5) % Plt Count 346 (130-400) K/uL MPV 10.0 (7.4-10.4) fL Immature Gran % (Auto) 0.1 % Neut % (Auto) 63.9 % Lymph % (Auto) 27.9 % [place] % (Auto) 5.2 % Eos % (Auto) 2.7 % Baso % (Auto) 0.2 % Neut # (Auto) 5.86 (1.4-6.5) K/uL Lymph # (Auto) 2.56 (1.2-3.4) K/uL [place] # (Auto) 0.48 (0.11-0.59) K/uL Eos # (Auto) 0.25 (0-0.5) K/uL Baso # (Auto) 0.02 (0-0.2) K/uL Immature Gran # (Auto) 0.01 (0.00-0.02) K/uL Sodium 139 (136-145) mmol/L Potassium 3.8 (3.5-5.1) mmol/L Chloride 107 (98-107) mmol/L Carbon Dioxide 24 (21-32) mmol/L Anion Gap 8 (3-11) BUN 8 (6-23) mg/dl Creatinine 0.59 L (0.6-1.2) mg/dl Est Cr Clr Drug Dosing 155.3 ml/min Est GFR ( Amer) 138.6 ml/min Est GFR (Non-Af Amer) 119.6 ml/min BUN/Creatinine Ratio 13.6 (10-20) Glucose 117 H (70-99(Fasting)) mg/dl POC Glucose 148 H (70-99) mg/dl Calcium 9.1 (8.5-10.1) mg/dl Magnesium 2.0 (1.7-2.4) mg/dl Total Bilirubin 0.3 (0.2-1.0) mg/dl AST 13 (13-39) U/L ALT 13 (7-52) U/L Alkaline Phosphatase 103 (34-104) U/L Total Creatine Kinase 18 L (26-192) U/L Troponin I High Sens < 2.3 (0-14) pg/ml Total Protein 7.4 (6.0-8.3) gm/dl Albumin 4.0 (3.4-5.0) gm/dl Globulin 3.4 (2.5-4.0) gm/dl Albumin/Globulin Ratio 1.2 (0.9-2) TSH (0.300-4.500) uIu/ml HCG, Qual (Negative) Urine Color Urine Appearance (Clear) Urine pH (4.5-7.5) Ur Specific [place] (1.000-1.030) Urine Protein (Negative) Urine Glucose (UA) (Negative) Urine Ketones (Negative) Urine Blood (Negative) Urine Nitrite (Negative) Urine Bilirubin (Negative) Urine Urobilinogen (Negative) Ur Leukocyte Esterase (Negative) Urine WBC (Auto) (0-5) /hpf Urine RBC (Auto) (0-4) /hpf U Hyaline Cast (Auto) (0-5) /lpf U Epithel Cells (Auto) (0-5) /lpf Urine Bacteria (Auto) (Negative) SARS-CoV-2, RNA, NAAT (NEGATIVE) 09/27/21 09/27/21 09/27/21 Range/Units 18:45 18:45 22:07 WBC (4.8-10.8) K/uL RBC (4.2-5.4) M/uL Hgb (12.0-16.0) g/dL Hct (37-47) % MCV (80-100) fL MCH (25-34) pg MCHC (32-36) g/dL RDW Std Deviation (36.4-46.3) fL RDW Coeff of Yash (11.5-14.5) % Plt Count (130-400) K/uL MPV (7.4-10.4) fL Immature Gran % (Auto) % Neut % (Auto) % Lymph % (Auto) % [place] % (Auto) % Eos % (Auto) % Baso % (Auto) % Neut # (Auto) (1.4-6.5) K/uL Lymph # (Auto) (1.2-3.4) K/uL [place] # (Auto) (0.11-0.59) K/uL Eos # (Auto) (0-0.5) K/uL Baso # (Auto) (0-0.2) K/uL Immature Gran # (Auto) (0.00-0.02) K/uL Sodium (136-145) mmol/L Potassium (3.5-5.1) mmol/L Chloride (98-107) mmol/L Carbon Dioxide (21-32) mmol/L Anion Gap (3-11) BUN (6-23) mg/dl Creatinine (0.6-1.2) mg/dl Est Cr Clr Drug Dosing ml/min Est GFR ( Amer) ml/min Est GFR (Non-Af Amer) ml/min BUN/Creatinine Ratio (10-20) Glucose (70-99(Fasting)) mg/dl POC Glucose (70-99) mg/dl Calcium (8.5-10.1) mg/dl Magnesium (1.7-2.4) mg/dl Total Bilirubin (0.2-1.0) mg/dl AST (13-39) U/L ALT (7-52) U/L Alkaline Phosphatase (34-104) U/L Total Creatine Kinase (26-192) U/L Troponin I High Sens (0-14) pg/ml Total Protein (6.0-8.3) gm/dl Albumin (3.4-5.0) gm/dl Globulin (2.5-4.0) gm/dl Albumin/Globulin Ratio (0.9-2) TSH 2.140 (0.300-4.500) uIu/ml HCG, Qual Negative (Negative) Urine Color Urine Appearance (Clear) Urine pH (4.5-7.5) Ur Specific [place] (1.000-1.030) Urine Protein (Negative) Urine Glucose (UA) (Negative) Urine Ketones (Negative) Urine Blood (Negative) Urine Nitrite (Negative) Urine Bilirubin (Negative) Urine Urobilinogen (Negative) Ur Leukocyte Esterase (Negative) Urine WBC (Auto) (0-5) /hpf Urine RBC (Auto) (0-4) /hpf U Hyaline Cast (Auto) (0-5) /lpf U Epithel Cells (Auto) (0-5) /lpf Urine Bacteria (Auto) (Negative) SARS-CoV-2, RNA, NAAT NEGATIVE (NEGATIVE) 09/27/21 Range/Units Unknown WBC (4.8-10.8) K/uL RBC (4.2-5.4) M/uL Hgb (12.0-16.0) g/dL Hct (37-47) % MCV (80-100) fL MCH (25-34) pg MCHC (32-36) g/dL RDW Std Deviation (36.4-46.3) fL RDW Coeff of Yash (11.5-14.5) % Plt Count (130-400) K/uL MPV (7.4-10.4) fL Immature Gran % (Auto) % Neut % (Auto) % Lymph % (Auto) % [place] % (Auto) % Eos % (Auto) % Baso % (Auto) % Neut # (Auto) (1.4-6.5) K/uL Lymph # (Auto) (1.2-3.4) K/uL [place] # (Auto) (0.11-0.59) K/uL Eos # (Auto) (0-0.5) K/uL Baso # (Auto) (0-0.2) K/uL Immature Gran # (Auto) (0.00-0.02) K/uL Sodium (136-145) mmol/L Potassium (3.5-5.1) mmol/L Chloride (98-107) mmol/L Carbon Dioxide (21-32) mmol/L Anion Gap (3-11) BUN (6-23) mg/dl Creatinine (0.6-1.2) mg/dl Est Cr Clr Drug Dosing ml/min Est GFR ( Amer) ml/min Est GFR (Non-Af Amer) ml/min BUN/Creatinine Ratio (10-20) Glucose (70-99(Fasting)) mg/dl POC Glucose (70-99) mg/dl Calcium (8.5-10.1) mg/dl Magnesium (1.7-2.4) mg/dl Total Bilirubin (0.2-1.0) mg/dl AST (13-39) U/L ALT (7-52) U/L Alkaline Phosphatase (34-104) U/L Total Creatine Kinase (26-192) U/L Troponin I High Sens (0-14) pg/ml Total Protein (6.0-8.3) gm/dl Albumin (3.4-5.0) gm/dl Globulin (2.5-4.0) gm/dl Albumin/Globulin Ratio (0.9-2) TSH (0.300-4.500) uIu/ml HCG, Qual (Negative) Urine Color Yellow Urine Appearance Clear (Clear) Urine pH 7.0 (4.5-7.5) Ur Specific [place] 1.020 (1.000-1.030) Urine Protein Negative (Negative) Urine Glucose (UA) Negative (Negative) Urine Ketones Trace H (Negative) Urine Blood Negative (Negative) Urine Nitrite Negative (Negative) Urine Bilirubin Negative (Negative) Urine Urobilinogen Negative (Negative) Ur Leukocyte Esterase Trace H (Negative) Urine WBC (Auto) 1-5 (0-5) /hpf Urine RBC (Auto) 5-10 H (0-4) /hpf U Hyaline Cast (Auto) 5-10 H (0-5) /lpf U Epithel Cells (Auto) >30 H (0-5) /lpf Urine Bacteria (Auto) 2+ H (Negative) SARS-CoV-2, RNA, NAAT (NEGATIVE) Administered Medications Discontinued Medications Sodium Chloride (Nss 1000ml) 1,000 mls @ 999 mls/hr IV .Q1H1M ANNA Stop: 09/27/21 19:45 Last Infusion: 09/27/21 19:50 Dose: 0 mls/hr Documented by: [id number] Admin: 09/27/21 18:49 Dose: 999 mls/hr Documented by: [id number] Imaging Data Radiologist's Impression: Chest X-Ray 09/27/21 18:35 SINGLE VIEW CHEST CLINICAL HISTORY: Atypical chest pain FINDINGS: An AP, portable, upright chest radiograph is compared to study dated 09/17/2021. The cardiomediastinal silhouette is unremarkable. The lungs and pleural spaces are clear. No pneumothorax is seen. The bony thorax is grossly intact. IMPRESSION: No active disease in the chest. ACT 112: Negative or not required by law. Electronically signed by: Levar Cade M.D. 09/27/2021 7:42 PM Discharge Plan Visit Data Chief Complaint: Neuro Symptoms/Deficit Stated Complaint: DR BETHEA, BLURRY VISION, NEURO SYMPTOMS ED Provider: Adam Bob Discharge Problem: Chest pain, Pseudotumor cerebri Patient Disposition: Being Evaluated by Hospitalist Condition: Good Discharge Instructions Kraro/Other Patient Handouts: ED Chest Pain, Uncertain Cause Activity Restrictions/Additional Instructions: Call your neurologist in the morning to schedule recheck. Continue on medicat ions as prescribed. Forms Stand Alone Forms: [facility], Virtual Emergency Department, Important Visit Information Prescriptions Prescriptions: No Action triamterene-hydrochlorothiazid [Maxzide] 75-50 mg tablet 1 tab PO DAILY Qty: 30 RF: 2 loratadine [Claritin] 10 mg tablet 10 mg PO HS PRN (Reason: Congestion) RF: 0 multivitamin Tablet 1 tab PO QAM RF: 0 ergocalciferol (vitamin D2) 1,250 mcg (50,000 unit) capsule 1,250 mcg PO WK RF: 0 famotidine [Pepcid] 20 mg Tablet 20 mg PO DAILY RF: 0 melatonin 5 mg Tablet 5 mg PO HS PRN (Reason: Sleep) RF: 0 metoprolol succinate 25 mg tablet extended release 24 hr 25 mg PO HS RF: 0 ketoconazole 2 % shampoo 1 applic TOPICAL 2XWK RF: 0 Referrals Referrals: Angela Thomas MD [Primary Care Provider] -
[2021-09-27] MEDS ORDERED: SODIUM CHLORIDE 0.9% 1000ML 1,000 ML IV SCH (18:45)
[2021-09-27 18:59] LABS: Basophils # (auto) 0.02 K/uL (0-0.2); Basophils % (auto) 0.2 %; Eosinophils # (auto) 0.25 K/uL (0-0.5); Eosinophils % (auto) 2.7 %; Hematocrit (blood only) 37.8 % (37-47); Hemoglobin 11.8 g/dL (12.0-16.0); Immature Granulocytes # (auto) 0.01 K/uL (0.00-0.02); Immature Granulocytes % (auto) 0.1 %; Lymphocytes # (auto) 2.56 K/uL (1.2-3.4); Lymphocytes % (auto) 27.9 %; Mean Corpuscular Hemoglobin 27.1 pg (25-34); Mean Corpuscular Hgb Conc 31.2 g/dL (32-36); Mean Corpuscular Volume 86.9 fL (80-100); Monocytes # (auto) 0.48 K/uL (0.11-0.59); Monocytes % (auto) 5.2 %; Neutrophils # (auto) 5.86 K/uL (1.4-6.5); Neutrophils % (auto) 63.9 %; Platelet Count 346 K/uL (130-400); RDW Coefficient of Variation 14.1 % (11.5-14.5); RDW Standard Deviation 44.9 fL (36.4-46.3); Red Blood Count 4.35 M/uL (4.2-5.4); White Blood Count 9.18 K/uL (4.8-10.8)
[2021-09-27 19:26] LABS: Pregnancy Test, Serum Negative (Negative)
[2021-09-27 19:32] LABS: Alanine Aminotransferase 13 U/L (7-52); Albumin Globulin Ratio 1.2 (0.9-2); Alkaline Phosphatase 103 U/L (34-104); Anion Gap 8 (3-11); Aspartate Aminotransferase 13 U/L (13-39); BUN Creatinine Ratio 13.6 (10-20); Bilirubin,Total 0.3 mg/dl (0.2-1.0); Blood Urea Nitrogen 8 mg/dl (6-23); Calcium 9.1 mg/dl (8.5-10.1); Carbon Dioxide 24 mmol/L (21-32); Chloride 107 mmol/L (98-107); Creatine Kinase 18 U/L (26-192); Creatinine Clr Calc Pharmacy 155.3 ml/min; Est GFR (African American) 138.6 ml/min; Est GFR (Non-African American) 119.6 ml/min; Globulin 3.4 gm/dl (2.5-4.0); Glucose 117 mg/dl (70-99(Fasting)); Potassium 3.8 mmol/L (3.5-5.1); Sodium 139 mmol/L (136-145); Total Protein 7.4 gm/dl (6.0-8.3); Troponin I High Sensitivity < 2.3 pg/ml (0-14)
[2021-09-27 19:33] LABS: Appearance Urine Clear (Clear); Bacteria Urine Automated 2+ (Negative); Bilirubin Urine Negative (Negative); Blood Urine Negative (Negative); Color Urine Yellow; Epithelial Cell Urine Auto >30 /lpf (0-5); Glucose Urine UA Negative (Negative); Ketones Urine Trace (Negative); Leukocyte Esterase Urine Trace (Negative); Nitrite Urine Negative (Negative); Protein Urine Negative (Negative); Urobilinogen Urine Negative (Negative)
--- NOTE | 2021-09-27 19:44 | XRay Report ---
SINGLE VIEW CHEST CLINICAL HISTORY: Atypical chest pain FINDINGS: An AP, portable, upright chest radiograph is compared to study dated 09/17/2021. The cardiome diastinal silhouette is unremarkable. The lungs and pleural spaces are clear. No pneumothorax is seen . The bony thorax is grossly intact. IMPRESSION: No active disease in the chest. ACT 112: Negative or not required by law. Electronically signed by: Levar Cade M.D. 09/27/2021 7:42 PM
[2021-09-28] MEDS ORDERED: ACETAMINOPHEN 325 MG TAB PO PRN (00:03)
[2021-09-28] MEDS ORDERED: NITROGLYCERIN SL 0.4 MG/TAB TAB SL PRN (00:03)
[2021-09-28] MEDS ORDERED: LORATADINE 10 MG TAB PO PRN (00:03)
[2021-09-28] MEDS ORDERED: ONDANSETRON INJ 2 MG/ML 2 ML VIAL IV PRN (00:03)
[2021-09-28] MEDS ORDERED: POLYETHYLENE (MIRALAX) 17 GM PACK PO PRN (00:03)
[2021-09-28] MEDS: MELATONIN 3 MG TAB PO PRN ×2 (00:38→23:34)
--- NOTE | 2021-09-28 01:20 | History and Physical Report ---
DATE OF ADMISSION: 09/27/2021. CHIEF COMPLAINT: Chest pain, muscle pain, eye pressure. HISTORY OF PRESENT ILLNESS: This is a 36-year-old female with past medical history significant for mild intermittent asthma, history of sleep apnea, allergic rhinitis, history of palpitation, pericarditis, morbid obesity, GERD, vitamin D deficiency, history of fibromyalgia, costochondritis , atypical chest pain, atypical migraine, iron deficiency anemia, anxiety, depression, HLA-B27 positive. She seems to also have history of intracranial hypertension in the form of pseudotumor cerebri, follows with Neurology. She was given Diamox .Patinet started feeling have muscle pain, muscle weakness, chest pain, not feeling well. She thought it was side effects of Diamox and she stopped it. Since then, she is getting some pressure in the eyes, but her muscle pain and chest pain did not improve. She called her neurology and referred to come to the ER. Otherwise, she is resting comfortably, hemodynamically stable. Currently no headache, no blurred visions, no runny nose, no sore throat, no cough, no fevers, no shortness of breath, no nausea, no abdominal pain. Normal bowel and bladder movements. She likes to stay in the hospital and get evaluated. ALLERGIES: AMOXICILLIN, CLAVULANIC ACID, IODINATED CONTRAST MEDIA, DOXYCYCLINE, EGG, FISH DERIVED, METRONIDAZOLE, BACTRIM, COFFEE PENICILLINS. PAST MEDICAL HISTORY: As mentioned above. PAST SURGICAL HISTORY: Laparoscopic cholecystectomy, cardiac catheterization, dental surgery, EGD. MEDICATIONS: The patient is on vitamin D 1250 mcg p.o. weekly, Pepcid 20 mg p.o. daily, loratadine 10 mg p.o. daily p.r.n., melatonin 5 mg p.o. at bedtime p.r.n., metoprolol succinate 25 mg p.o. at bedtime, multivitamin 1 tablet p.o. daily, triamterene/hydrochlorothiazide 75/50 mg 1 tablet p.o. daily. FAMILY HISTORY: Significant for mother has diabetes, hypertension, psoriasis; father has psoriasis, hypertension. SOCIAL HISTORY: , no smoking, quit vaping in 2013, not drinking currently. REVIEW OF SYSTEMS: As per HPI. Rest of review of systems is negative. PHYSICAL EXAMINATION: GENERAL: The patient is morbidly obese, not in acute distress. VITAL SIGNS: Temperature 36.6, pulse 74, respiratory rate 18, blood pressure 143/84, oxygen 99% on room air. HEENT: Pupils equal, round and reactive to light. Oral mucosa moist. NECK: No JVD, no neck masses. CARDIOVASCULAR: S1 and S2 heard. Regular rate and rhythm. No murmur, no gallop. RESPIRATORY SYSTEM: Normal AP diameter. No accessory muscle use. No wheezing, no crackles. ABDOMEN: Soft, bowel sounds present, nontender, no distention. CENTRAL NERVOUS SYSTEM: Alert and oriented. No facial droop. Speech is clear. Insight is good. Power 5/5 in all extremities. Sensation seems intact, but the patient says some decreased sensation. EXTREMITIES: No edema, no erythema. LABORATORY DATA: WBC 9.1, hemoglobin 11.8, hematocrit 37.8, platelets 346. Sodium 139, potassium 3.8, chloride 107, bicarbonate 24, BUN 8, creatinine 0.5, serum glucose 117, calcium 9.1, magnesium 2, total bilirubin 0.3, AST 13, ALT 13, alkaline phosphatase 103. Total creatinine kinase 18. Troponin I high sensitivity less than 2.3. TSH 2.1. HCG qualitative negative. Urinalysis, trace ketones, +2 bacteria, trace leukocyte esterase. SARS-CoV-2 rapid test negative. IMAGING DATA: Chest x-ray, no active disease in the chest. EKG: Normal sinus rhythm at a rate of 70. Q waves in the inferior leads. ASSESSMENT AND PLAN: This is a 36-year-old female who presents with ongoing muscle pain, muscle weakness and chest pain, history of intracranial hypertension or pseudotumor cerebri, stopped taking Diamox. 1. Chest pain. The patient is following Cardiology for palpitations. She is on metoprolol.Initial workup is negative. We will do serial enzymes, echo, and consult Cardiology. Monitor in the med/tele floor. 2. History of intracranial hypertension or pseudotumor cerebri. Follow up with Neurology. Was on Diamox, but stopped Diamox because of her muscle pains, thought her muscle pains and weakness causing from it . Has some pressure in the eyes. Will consult neurology while the patient is in the hospital. 3. History of palpitations. Continue metoprolol succinate. 4. History of gastroesophageal reflux disease. Continue Pepcid. 5. Sleep apnea. CPAP at bedtime. 6. History of asthma, currently stable. 7. Deep venous thrombosis prophylaxis. Sequential compression devices. DISPOSITION: Observe in med tele. PT/OT prior to discharge. Social service to help with discharge planning. Job ID: [id number] [facility]
[2021-09-28] MEDS: CIPROFLOXACIN / D5W 400 MG/200 ML BAG IV SCH ×2 (01:55→14:25)
[2021-09-28 06:04] LABS: Basophils # (auto) 0.02 K/uL (0-0.2); Basophils % (auto) 0.2 %; Eosinophils # (auto) 0.31 K/uL (0-0.5); Eosinophils % (auto) 3.4 %; Hematocrit (blood only) 34.5 % (37-47); Hemoglobin 10.7 g/dL (12.0-16.0); Immature Granulocytes # (auto) 0.02 K/uL (0.00-0.02); Immature Granulocytes % (auto) 0.2 %; Lymphocytes # (auto) 3.42 K/uL (1.2-3.4); Lymphocytes % (auto) 37.4 %; Mean Corpuscular Volume 87.1 fL (80-100); Mean Platelet Volume 9.9 fL (7.4-10.4); Monocytes # (auto) 0.45 K/uL (0.11-0.59); Monocytes % (auto) 4.9 %; Neutrophils # (auto) 4.93 K/uL (1.4-6.5); Neutrophils % (auto) 53.9 %; Platelet Count 303 K/uL (130-400); RDW Coefficient of Variation 14.1 % (11.5-14.5); RDW Standard Deviation 45.4 fL (36.4-46.3); Red Blood Count 3.96 M/uL (4.2-5.4); White Blood Count 9.15 K/uL (4.8-10.8)
[2021-09-28 06:19] LABS: Anion Gap 7 (3-11); BUN Creatinine Ratio 14.3 (10-20); Blood Urea Nitrogen 7 mg/dl (6-23); Calcium 8.6 mg/dl (8.5-10.1); Carbon Dioxide 23 mmol/L (21-32); Chloride 108 mmol/L (98-107); Creatine Kinase 14 U/L (26-192); Creatinine Clr Calc Pharmacy 188.8 ml/min; Est GFR (African American) 147.3 ml/min; Est GFR (Non-African American) 127.1 ml/min; Glucose 83 mg/dl (70-99(Fasting)); Magnesium 1.9 mg/dl (1.7-2.4); Potassium 3.5 mmol/L (3.5-5.1); Sodium 138 mmol/L (136-145)
[2021-09-28 06:22] LABS: Troponin I High Sensitivity < 2.3 pg/ml (0-14)
[2021-09-28] MEDS: MULTIVITAMIN TAB PO SCH (06:47)
[2021-09-28] MEDS: FAMOTIDINE 20 MG TAB PO SCH (07:48)
[2021-09-28] MEDS: TRIAMTERENE/HCTZ 37.5/25MG TAB PO SCH (07:48)
--- NOTE | 2021-09-28 09:52 | Neurology Consultation ---
Date of Consultation September 28, 2021 Assessment & Plan (1) Idiopathic intracranial hypertension: (2) Persistent postural-perceptual dizziness: (3) Weakness: (4) POTS (postural orthostatic tachycardia syndrome): (5) Headache: (6) Ankylosing spondylitis: This patient is very complicated neurologically. She has had extensive neurologic testing, it often repeated over the years, with no specific neurologic conditions except an LP that had a mildly elevated opening pressure. Therefore, she is diagnosed with mild idiopathic intracranial hypertension. She does not carry a diagnosis of papilledema (My simple ophthalmologic evaluation was unremarkable). Apparently she saw a the stock puller yesterday who told her the exam was unremarkable but I do not have this report. She does have nonspecific generalized headaches and some visual obscurations. She may have some migraine component as well. The patient has a history of persistent dizziness and has had extensive evaluation with a diagnosis of PPPD. The neurologist at [facility] made this diagnosis recommended venlafaxine. I am uncertain if the patient has ever taken venlafaxine. The patient has been diagnosed with mild Postural Orthostatic Tachycardia Syndrome but I found 3 tilt-table testing results in the chart (1 at [facility] and two outside) which were negative for POTS. Am not convinced she has a true pots syndrome although her blood pressure may fluctuate some with position change particularly if she is dehydrated. The patient has weakness in general but no specific neuromuscular disease diagnosis. Neurologic examination was unremarkable today. Testing with EMG nerve conduction studies have been unremarkable. Patient does carry a diagnosis of fibromyalgia. I am uncertain if she has ever tried Cymbalta. She has persistent elevated ESR and a positive HLA B27 with some ankylosing spondylitis. No other specific reason for an elevated sedimentation rate has been found and extensive testing has showed no other rheumatologic or inflammatory disease. Recommendations: 1. Consider repeating ESR And CRP. Consider a formal rheumatologic evaluation if she has not had 1 so far. This could be done as an outpatient. 2. Obtain ophthalmology Report from yesterday. 3. could continue with generic Dyazide 1 tablet daily for her increased intracranial pressure, but I am concerned if this will make her more dizzy or lower her blood pressure. 4. As an outpatient she could try Cymbalta for the fibromyalgia symptoms. 5. Otherwise she will follow-up with Dr. Braxton as an outpatient after this visit. Unfortunately, I do not have much more to offer this patient and she has had more than enough neurologic testing to date. Overall, spent a total of120 minutes with this case including review of records, review of MRI films, direct evaluation the patient bedside, and discussion of the case with the patient at bedside and Dr. Banuelos History of Present Illness Reason for Consultation: Patient is a 36 year old, who I was asked to see at the request of Dr. Lozano, for neurologic consultation regarding weakness, pain, tremor, and other neurologic issues. Requesting Physician: Dr. Lozano Attending Physician: Jed Banuelos MD History of Present Illness This patient has been seen by multiple neurologists (Nilam Fishman, Emerson, and others) over the last 10 years. She has had extensive neurologic evaluation over this time. Although she has multiple and varied symptoms she has very little specific neurologic diagnoses to explain all of her problems. Extensive testing is as follows ( partial list): MRI of brain with without contrast 2015, November 2017, March 2020 MRA of head December 2020, May 2020 MRV of head May 2019, May 2020, MRV of head with contrast report not available 2020 CT of head-January 2021, December 2020, November 2020, April 2020, October 2017 CT cervical spine December 2020 CT sinuses April 2020 CT echocardiogram November 2020 MRI cervical spine July 2019, January 2018, January 2016 MRI thoracic spine November 2017 , which showed mild degenerative discs at T10-11 and T11-12 with bulging annual eye at both levels. No significant disc herniation or spinal stenosis was seen. Lumbar puncture June 2020 opening pressure 19, [facility] Venous Doppler 2017, 2018, 2019 EEG continuous video monitoring x4 days [facility] June 2020 Abnormal EEG at [facility], report unavailable. CT scan of the chest September 2018 echocardiogram June 2018 cardiac catheterization July of 2015 ENT evaluation (2020), which was unremarkable. 5 day EMU stay at [facility] June 2020- unremarkable (no seizure activity despite multiple symptoms and spells). The patient saw a neurologist at [facility] February 15, 2021 who summarized her case and felt that her dizziness was most consistent with persistent postural dependent dizziness (PPPD) I most recently saw this patient in June of 2021 when she was hospitalized with Covid-19 and worsening bifrontal, tension type headaches. She had blurry vision and a generalized sense of weakness. Her neurologic examination was unremarkable without focal neurologic signs, meningeal signs, or encephalopathy. An MRI of the brain was unremarkable. echocardiogram was unremarkable. The patient has had multiple issues with multiple emergency room visits in the last 2 months. In August of this year: EMG and nerve conduction studies of both legs and 1 arm were unremarkable with no evidence of neuropathy, myopathy, or radiculopathy. LP with an opening pressure of 25, 4 white cells, no red cells, protein of 22.7, and no other abnormalities with extensive CSF testing. MRI of the brain with and without contrast -unremarkable. MRV of the brain unremarkable. The MRA of the head and neck -all unremarkable. EEG unremarkable July 2021. The patient had 2 tilt-table tests in July of 2021 (outside institutions) which were unremarkable. 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 This patient has had extensive laboratory testing in the last 2 months including chemistry, CBC, Lyme antibody titers, B12, TSH and others. CK recently has been markedly low at 14 and ESR has been mildly elevated at 55 most recently September 04. RYAN profile was unremarkable. Because of the mildly elevated CSF Opening pressure, a tentative diagnosis of benign intracranial hypertension was made and she was initiated on Diamox. For 2 weeks she took the medication without issue and felt that her generalized headaches were improved. On September 23 she discontinued the medication because of other symptoms such as numbness and tingling around her lips and hands which were felt to be acetazolamide side effects. She was initiated on generic Dyazide but will initiate this medication today. Apparently she saw an stock puller at the [facility] in [place], [place] on September 27. Although I do not have the report, she was told that the evaluation was unremarkable. Patient came to the emergency room September 27 with a problem of aches and pains in her muscles including chest pain. Although she admits she is not "weak" her muscles feel like "gelatin". It is diffuse muscle pain. She has had tremor for the last 4 days and some twitching of the muscles. Occasionally she feels cold and tingling. She arrived to the emergency room Susana 13th at 17:50 with a temperature of 36.6, pulse 89, respiratory rate 18, blood pressure 124/83, and O2 saturation 97. Nneurologic examination was unremarkable and nonfocal. Chem profile was unremarkable although glucose was 117. CBC was unremarkable. TSH was normal at 2.1 and test was negative. Urinalysis was unremarkable. She was admitted because of chest pain, muscle pain, high pressure. CK was 14. Chest x-ray was unremarkable. Allergies Allergy/AdvReac Type Severity Reaction Status Date / Time amoxicillin Allergy Severe ANAPHYLAXIS Verified 09/27/21 21:15 clavulanic acid Allergy Severe ANAPHYLAXIS Verified 09/27/21 21:15 Iodinated Contrast Media Allergy Severe Hives, Verified 09/27/21 21:15 tongue swelling doxycycline Allergy Intermediate Rash Verified 09/27/21 21:15 egg Allergy Intermediate Hives Verified 09/27/21 21:15 fish derived Allergy Intermediate Hives Verified 09/27/21 21:15 metronidazole Allergy Intermediate rash Verified 09/27/21 21:15 sulfamethoxazole Allergy Intermediate tongue Verified 09/27/21 21:15 [From Bactrim] swelling trimethoprim [From Bactrim] Allergy Intermediate tongue Verified 09/27/21 21:15 swelling coffee (Coffea arabica) Allergy Unknown per Verified 09/27/21 21:15 allergy testing Penicillins Allergy Unknown per Verified 09/24/21 16:29 allergy testing Home Medications Medication Instructions Recorded Confirmed Type multivitamin 1 tab PO QAM 03/27/18 09/27/21 History loratadine 10 mg tablet (Claritin) 10 mg PO HS PRN 03/21/20 09/27/21 History metoprolol succinate 25 mg 25 mg PO HS 08/28/21 09/27/21 History tablet,extended release 24 hr ergocalciferol (vitamin D2) 1,250 1,250 mcg PO WK 08/29/21 09/27/21 History mcg (50,000 unit) capsule ketoconazole 2 % shampoo 1 applic TOPICAL 2XWK 09/24/21 09/27/21 History famotidine 20 mg tablet (Pepcid) 20 mg PO DAILY 09/27/21 09/27/21 History melatonin 5 mg tablet 5 mg PO HS PRN 09/27/21 09/27/21 History triamterene 75 1 tab PO DAILY #30 tab 09/27/21 09/27/21 Rx mg-hydrochlorothiazide 50 mg tablet (Maxzide) Patient History Medical History Abnormal EEG Ankylosing spondylitis Anxiety and depression Change in vision Chest pain Chest pain COVID-19 Degenerative disc disease Dizziness DVT (deep venous thrombosis) Eustachian tube dysfunction Fatigue GERD (gastroesophageal reflux disease) Headache Heart palpitations High cholesterol History of bradycardia History of bulimia History of pre-eclampsia Insomnia Iron deficiency anemia Migraine Morbid obesity with BMI of 40.0-44.9, adult Seasonal allergies Thoracic disc disease Vitamin B12 deficiency Vitamin D deficiency Surgical History History of cardiac cath 06/2015 @ [facility] [place]--d/t chest pain, normal no stents History of cholecystectomy History of esophagogastroduodenoscopy (EGD) History of wisdom tooth extraction Family History Father Hypertension Mother Diabetes Grandfather (Maternal) Diabetes Coronary heart disease Myocardial infarction Congestive heart failure Colorectal cancer Grandfather (Paternal) Diabetes Coronary heart disease Myocardial infarction, Onset Age: 50 Grandmother (Paternal) Pulmonary emphysema Sick sinus syndrome Diabetes Pacemaker Grandmother (Maternal) Family history of diabetes mellitus Aunt Pulmonary emphysema Family/Other Myocardial infarction, Onset Age: 37 Coronary heart disease Uncle Stroke Other Asthma Lymphoma No family history of adverse response to anesthesia Denies family history of Ovarian cancer Prostate cancer Breast cancer Social History Smoking Status: Former smoker Tobacco Type: Cigarettes Second Hand Exposure: No; Hx Alcohol Use: No Hx Substance Use: No Preferred Language: Welsh Communication Ability: Effective Communication Tools: Other Visual Impairment: No Limitations Hearing Ability: Normal Junior Architect Required: No Beliefs That Will Affect Care: None marital status: Current Living Situation: Spouse and Family Current Living Situation Comment: Lives with and daughter current occupational status: unemployed How many Children do You have: 1 Other Information That Helps Us Care for You: No Feels Safe at Home: Yes Safety Concerns: Feels Safe At This Time Childhood Exposure to Second-Hand Smoke: Yes caffeine: No during the past year weight has: remained stable Dental Care, Regularly: Yes Physical Activity Frequency: 5-6 Times per Week Seatbelt Use: never Sunscreen Use: Yes Assistive Devices: Glasses and Wheelchair Review of Systems Constitutional: + body aches, + fatigue and + weakness; no fever Eyes: + spots in vision; no diplopia, no eye pain and no worsening vision Ear, Nose, Mouth, Throat: + dizziness; no ear pain, no tinnitus, no hearing loss, no snoring, no hoarseness and no dysphagia Respiratory: no cough and no dyspnea Cardiovascular: + chest pain; no palpitations and no lightheadedness Gastrointestinal: no abdominal pain, no nausea and no vomiting Genitourinary: no dysuria, no urinary frequency and no urinary incontinence Musculoskeletal: + back pain and + neck pain; no radicular pain, no joint pain and no myalgia Integumentary: no rash and no lesions Neurologic: + generalized weakness, + tingling and + headache(s); no gait abnormality, no localized weakness, no numbness, no tremor(s), no abnormal movements, no abnormal speech, no confusion and no memory loss Psychiatric: no depression, no irritability, no anxiety, no difficulty concentrating, no confusion and no hallucinations Endocrine: no fatigue and no flushing Hematologic / Lymphatic: no easy bleeding and no easy bruising Allergy / Immunological: no urticaria and no problem reported Exam (Neuro) Physical Exam: The patient is right-handed. The patient is awake, alert, and attentive. Speech is normal without any aphasia or dysarthria. The patient can name objects, repeat phrases, and has normal spontaneous speech. Mentation and thought processes are intact, with orientation to person, place and time, and normal fund of knowledge. Attention and concentration are normal. Mood and affect are normal and appropriate. General appearance and grooming are normal. Short and long-term memory are intact. The discs are sharp with positive venous pulsations bilaterally. There are no exudates, hemorrhages, or blood vessel changes seen. Pupils are 4 mm bilaterally and reactive to light. Extraocular eye muscles are intact without nystagmus. Visual acuity and visual kowalski seem normal grossly to confrontation. There are no deficits to sensation in the face in all 3 distributions of the fifth cranial nerve bilaterally. Corneal reflexes are positive bilaterally. Facial strength and symmetry was normal bilaterally. Hearing seems normal bilaterally. Palate moves well without asymmetry. There is normal sternocleidomastoid and trapezius (shoulder shrug) strength bilaterally. Tongue is midline with good strength bilaterally. Neck has a full range of motion without discomfort. There are no cervical bruits bilaterally. There are no cranial or ocular bruits. Heart is without murmur. There is a regular rhythm and rate. Cervical, thoracic, and lumbar spine are nontender to palpation. Gait was not tested but stance sitting up is quite normal. With outstretched arms there is no drift. There are no resting, postural, or action tremors. There is no ataxia with finger to nose testing. There is good facility in the hands. No other abnormal involuntary movements are noted. Motor strength is 5/5 diffusely in the arms bilaterally including deltoids, biceps, triceps, brachioradialis, wrist flexors and extensors, machine sewer, and intrinsic hand muscles. Motor strength is 5/5 diffusely in the legs bilaterally including hip flexors, quadriceps, hamstrings, gastrocnemius, tibialis anterior, tibialis posterior, and Peroneii muscles. Toe extensors are normal and there is good bulk in the extensor digitorum brevis muscles bilaterally. The limbs have good tone without rigidity or spasticity. There is no atrophy noted in the muscles. Muscle bulk is normal, there is no tenderness to palpation, no myotonia to percussion, and no fasciculations seen. Sensory examination is intact to touch and pin throughout all 4 limbs diffusely. Reflexes are 2/4 in the biceps, triceps, brachioradialis, quadriceps, and Achilles tendons bilaterally. There is no clonus bilaterally. Toes are downgoing with plantar stimulation bilaterally. Peripheral pulses are present and of normal quality distally in all 4 limbs. There is no peripheral edema noted in the limbs. Results & Data ([facility]) Vital Signs (Past 12 Hours) Vital Signs Temp Pulse Pulse Resp BP BP Pulse Ox 09/28/21 07:47 36.6 C 76 18 115/74 96 09/28/21 07:05 66 09/28/21 03:05 36.6 C 70 18 109/69 96 09/28/21 00:11 37.9 C H 87 20 139/92 98 09/28/21 00:10 79 09/27/21 23:49 36.8 C 77 18 147/87 H 99 09/27/21 22:06 75 18 143/84 H 99 PG Care Time/CCT Total # of Minutes Spent Total Time Spent with Patient: Total time spent is greater than 50% in coordination of care (as documented) at patient's floor/unit and/or counseling patient: Coding Level of Care Code 77612 Office/OBS Consult Lvl 5 Diagnoses Idiopathic intracranial hypertension G93.2 Persistent postural-perceptual dizziness R42 Weakness R53.1 POTS (postural orthostatic tachycardia syndrome) I49.8 Headache R51.9 Ankylosing spondylitis M45.9 Time Spent (min) 120 Comment add modifiers as able.
[2021-09-28 12:07] LABS: D Dimer 270 ug/L FEU (0-500)
--- NOTE | 2021-09-28 15:34 | Cardiology Consultation ---
Date of Consultation September 28, 2021 Assessment & Plan (1) Chronic chest pain: (2) Anxiety: (3) Generalized weakness: (4) Palpitations: Had an outpatient monitor completed recently- results showed numerous patient triggered events correlated to normal sinus rhythm and sinus tachycardia. No concerning arrhythmias. Had a tilt table test on on 08/10/2021, ordered by Dr. Noriega and one previous done at [facility]. Both times testing what negative for orthostatic intolerance. HR were elevated, but not much outside of her baseline. Monitoring during the test showed NSR and ST- no arrhythmias or pauses noted. She has had an extensive cardiac workup in the past regarding her chest pain- she had a cardiac cath done aprox. 5 years which showed normal coronary arteries and a repeat treadmill stress test in 2018 which was normal as well. No further cardiac work-up necessary at this time. No cardiac follow-up will be scheduled at this time. History of Present Illness Reason for Consultation: chest pain Requesting Physician: Dr. Lozano Attending Physician: Jed Banuelos MD History of Present Illness The patient is a 36-year-old female very well-known to our cardiology practice. Presents to [facility] on 09/27/2021 with complaints of chest pain. She was recently started on Diamox and shortly thereafter she developed chest pain, muscle pain and muscle weakness. She stopped the Diamox. Since then she did note some pressure in her eyes. Chest discomfort muscle pain did not improve. She was referred to the ER by her neurologist. Patient symptoms of chest pain are similar to multiple previous presentations. Allergies Allergy/AdvReac Type Severity Reaction Status Date / Time amoxicillin Allergy Severe ANAPHYLAXIS Verified 09/27/21 21:15 clavulanic acid Allergy Severe ANAPHYLAXIS Verified 09/27/21 21:15 Iodinated Contrast Media Allergy Severe Hives, Verified 09/27/21 21:15 tongue swelling doxycycline Allergy Intermediate Rash Verified 09/27/21 21:15 egg Allergy Intermediate Hives Verified 09/27/21 21:15 fish derived Allergy Intermediate Hives Verified 09/27/21 21:15 metronidazole Allergy Intermediate rash Verified 09/27/21 21:15 sulfamethoxazole Allergy Intermediate tongue Verified 09/27/21 21:15 [From Bactrim] swelling trimethoprim [From Bactrim] Allergy Intermediate tongue Verified 09/27/21 21:15 swelling coffee (Coffea arabica) Allergy Unknown per Verified 09/27/21 21:15 allergy testing Penicillins Allergy Unknown per Verified 09/24/21 16:29 allergy testing Home Medications Medication Instructions Recorded Confirmed Type multivitamin 1 tab PO QAM 03/27/18 09/27/21 History loratadine 10 mg tablet (Claritin) 10 mg PO HS PRN 03/21/20 09/27/21 History metoprolol succinate 25 mg 25 mg PO HS 08/28/21 09/27/21 History tablet,extended release 24 hr ergocalciferol (vitamin D2) 1,250 1,250 mcg PO WK 08/29/21 09/27/21 History mcg (50,000 unit) capsule ketoconazole 2 % shampoo 1 applic TOPICAL 2XWK 09/24/21 09/27/21 History famotidine 20 mg tablet (Pepcid) 20 mg PO DAILY 09/27/21 09/27/21 History melatonin 5 mg tablet 5 mg PO HS PRN 09/27/21 09/27/21 History triamterene 75 1 tab PO DAILY #30 tab 09/27/21 09/27/21 Rx mg-hydrochlorothiazide 50 mg tablet (Maxzide) Patient History Medical History Abnormal EEG Ankylosing spondylitis Anxiety and depression Change in vision Chest pain Chest pain COVID-19 Degenerative disc disease Dizziness DVT (deep venous thrombosis) Eustachian tube dysfunction Fatigue GERD (gastroesophageal reflux disease) Headache Heart palpitations High cholesterol History of bradycardia History of bulimia History of pre-eclampsia Insomnia Iron deficiency anemia Migraine Morbid obesity with BMI of 40.0-44.9, adult Seasonal allergies Thoracic disc disease Vitamin B12 deficiency Vitamin D deficiency Surgical History History of cardiac cath 06/2015 @ [facility] [place]--d/t chest pain, normal no stents History of cholecystectomy History of esophagogastroduodenoscopy (EGD) History of wisdom tooth extraction Family History Father Hypertension Mother Diabetes Grandfather (Maternal) Diabetes Coronary heart disease Myocardial infarction Congestive heart failure Colorectal cancer Grandfather (Paternal) Diabetes Coronary heart disease Myocardial infarction, Onset Age: 50 Grandmother (Paternal) Pulmonary emphysema Sick sinus syndrome Diabetes Pacemaker Grandmother (Maternal) Family history of diabetes mellitus Aunt Pulmonary emphysema Family/Other Myocardial infarction, Onset Age: 37 Coronary heart disease Uncle Stroke Other Asthma Lymphoma No family history of adverse response to anesthesia Denies family history of Ovarian cancer Prostate cancer Breast cancer Social History Smoking Status: Former smoker Tobacco Type: Cigarettes Second Hand Exposure: No; Hx Alcohol Use: No Hx Substance Use: No Preferred Language: Mauritanian Communication Ability: Effective Communication Tools: Other Visual Impairment: No Limitations Hearing Ability: Normal Pin Inserter Regulator Required: No Beliefs That Will Affect Care: None marital status: Current Living Situation: Spouse and Family Current Living Situation Comment: Lives with and daughter current occupational status: unemployed How many Children do You have: 1 Other Information That Helps Us Care for You: No Feels Safe at Home: Yes Safety Concerns: Feels Safe At This Time Childhood Exposure to Second-Hand Smoke: Yes caffeine: No during the past year weight has: remained stable Dental Care, Regularly: Yes Physical Activity Frequency: 5-6 Times per Week Seatbelt Use: never Sunscreen Use: Yes Assistive Devices: Wheelchair Review of Systems Review of Systems: All systems reviewed & are unremarkable except as noted in HPI & below Physical Exam Physical Exam: Physical Exam: General: Awake, alert and oriented x 3. No acute distress. HEENT: Normocephalic, atraumatic. Pupils equal, round and reactive to light and accommodation. Extraocular muscles are intact. Anicteric sclera. Moist mucous membranes. Neck: No JVD. No bruit. Cardiovascular: Regular. No S-4. Normal S-1 and S-2. No S-3. No murmurs, rubs or gallops. Pulmonary: Clear to auscultation bilaterally. No rales, rhonchi, or wheezing. Abdomen: Bowel sounds x 4, soft. No rebound, guarding or tenderness. No organomegaly. Extremities: No clubbing, cyanosis or edema. +2 pedal pulses bilaterally. Skin: Warm and dry. Results & Data ([facility]) Vital Signs (Past 12 Hours) Vital Signs Temp Pulse Pulse Resp BP Pulse Ox 09/28/21 15:17 61 09/28/21 15:11 36.8 C 93 H 20 107/71 98 09/28/21 07:47 36.6 C 76 18 115/74 96 09/28/21 07:05 66
[2021-09-28] MEDS: METOPROLOL SUCC 25MG EXT REL TAB PO SCH (20:12)
[2021-09-29] MEDS: CIPROFLOXACIN / D5W 400 MG/200 ML BAG IV SCH ×2 (01:08→13:54)
--- NOTE | 2021-09-29 06:01 | Electrocardiogram Report ---
Test Reason : Blood Pressure : / mmHG Vent. Rate : 070 BPM Atrial Rate : 070 BPM P-R Int : 148 ms QRS Dur : 076 ms QT Int : 384 ms P-R-T Axes : -07 -07 -06 degrees QTc Int : 414 ms Normal sinus rhythm Moderate voltage criteria for LVH, may be normal variant Inferior infarct , age undetermined Nonspecific T wave abnormality Abnormal ECG When compared with ECG of 24-SEP-2021 16:23, QT has shortened Confirmed by Darryl Fernandez ([id number]) on 09/29/2021 6:01:06 AM Referred By: Buddy Braxton Confirmed By:Darryl Fernandez
--- NOTE | 2021-09-29 06:35 | Electrocardiogram Report ---
Test Reason : Blood Pressure : / mmHG Vent. Rate : 067 BPM Atrial Rate : 067 BPM P-R Int : 158 ms QRS Dur : 078 ms QT Int : 424 ms P-R-T Axes : -05 -03 -01 degrees QTc Int : 448 ms Normal sinus rhythm Minimal voltage criteria for LVH, may be normal variant Nonspecific T wave abnormality Abnormal ECG When compared with ECG of 27-SEP-2021 18:27, No significant change was found Confirmed by Darryl Fernandez ([id number]) on 09/29/2021 6:35:37 AM Referred By: Buddy Braxton Confirmed By:Darryl Fernandez
--- NOTE | 2021-09-29 06:56 | Electrocardiogram Report ---
Test Reason : Blood Pressure : / mmHG Vent. Rate : 066 BPM Atrial Rate : 066 BPM P-R Int : 148 ms QRS Dur : 076 ms QT Int : 412 ms P-R-T Axes : -07 -03 004 degrees QTc Int : 431 ms Normal sinus rhythm Minimal voltage criteria for LVH, may be normal variant Cannot rule out Anterior infarct , age undetermined Nonspecific T wave abnormality Abnormal ECG When compared with ECG of 28-SEP-2021 06:25, No significant change was found Confirmed by Darryl Fernandez ([id number]) on 09/29/2021 6:55:20 AM Referred By: Buddy Braxton Confirmed By:Darryl Fernandez
[2021-09-29] MEDS: MULTIVITAMIN TAB PO SCH (08:04)
[2021-09-29] MEDS: FAMOTIDINE 20 MG TAB PO SCH (08:04)
[2021-09-29] MEDS: TRIAMTERENE/HCTZ 37.5/25MG TAB PO SCH (08:05)
--- NOTE | 2021-09-29 08:23 | Neurology Progress Note ---
Date of Service September 29, 2021 Assessment & Plan (1) Idiopathic intracranial hypertension: (2) Persistent postural-perceptual dizziness: (3) Weakness: (4) POTS (postural orthostatic tachycardia syndrome): (5) Headache: (6) Ankylosing spondylitis: Plan: This patient is very complicated neurologically. She has had extensive neurologic testing, often repeated over the years, with no specific neurologic diagnoses or conditions, except a recent LP that had a mildly elevated opening pressure. Therefore, she was diagnosed as mild idiopathic intracranial hypertension. She does not have papilledema, as noted by an ophthalmology evaluation clear field on September 27 (I saw the report). She does have nonspecific generalized headaches and some visual obscurations , with a history of migraine events as well. Overall, I do not believe she has pseudotumor cerebri. Her headache is better over the last 24 hours and she is on generic Dyazide The patient has a history of persistent dizziness and has had extensive evaluation, with a diagnosis of PPPD. The neurologist at [facility] who made this diagnosis in February,, recommended venlafaxine. This medication gave her side effects and did not help the dizziness. She continues to have intermittent dizziness and lightheadedness of a nonspecific nature. This is stable. The patient has been diagnosed with mild Postural Orthostatic Tachycardia Syndrome but I found 3 tilt-table test results in the chart (1 at [facility] and two outside) which were negative for POTS. She does not have true POTS, although her blood pressure may fluctuate some with position change, particularly if she is dehydrated. The patient has weakness in general but no specific neuromuscular disease diagnosis. Neurologic examination has been unremarkable. EMG and nerve con duction studies were unremarkable last month. Her chest pain is persistent and worsening. I cannot exclude a thoracic radiculopathy given her presentation. Additionally, she has dysesthesias and limb symptoms which could be radicular in nature. Finally, given her distal dysesthesias a small fiber neuropathy cannot be excluded. She has an elevated ESR and CRP in August, and a positive HLA B27 in the past. No other specific reason for an elevated sedimentation rate has been found and extensive testing has showed no other rheumatologic or inflammatory disease. Recommendations: 1. Obtain ESR, aldolase, and CRP. 2. Consider a formal rheumatologic evaluation if she has not had 1 so far. This could be done as an outpatient. 3. Continue with generic Dyazide 1 tablet daily for now 4. MRI of the cervical and thoracic spines, without contrast 5. consider skin punch biopsy for small fiber neuropathy as well as a standard muscle biopsy. 6. Otherwise she will follow-up with Dr. Braxton as an outpatient after this visit. Unfortunately, I do not have much more to offer this patient and she has had more than enough neurologic testing to date. Overall, spent a total of 45 minutes with this case including review of records, review of MRI films, direct evaluation the patient bedside, and discussion of the case with the patient at bedside and Dr. Banuelos Admission and Anticipated Discharge Date Admission Date: September 27, 2021 Subjective Patient feels that her head pressure is a little bit better today compared to yesterday. However, her chest pain is worse. She had a cardiac evaluation and there was no cardiac diagnosis to be made. Echocardiogram was unremarkable. She continues to get dizzy and lightheaded intermittently. Lying down helps. Her muscles are achy like she worked out but they are not tender to touch. She has spots in her vision occasionally and numbness and tingling in her hands and feet which comes and goes. Blood pressure is 117/25. Results & Data ([facility]) Vital Signs (Past 12 Hours) Vital Signs Temp Pulse Pulse Resp BP Pulse Ox 09/29/21 07:41 36.5 C 86 18 117/75 98 09/29/21 07:19 64 09/29/21 03:16 36.6 C 60 18 129/72 94 09/29/21 00:55 71 09/28/21 23:07 36.9 C 66 18 126/82 100 Exam (Neuro) Physical Exam: She is awake and alert. Speech is without aphasia or dysarthria. Mood is normal and affect is perhaps somewhat flattened. She seems to be not talking about going home for the holiday weekend or being with her family. She seems very content to be in the hospital and get testing. Extraocular eye muscles are intact without nystagmus. There is no facial droop. there are no abnormal involuntary movements. PG Care Time/CCT Total # of Minutes Spent Total Time Spent with Patient: Total time spent is greater than 50% in coordination of care (as documented) at patient's floor/unit and/or counseling patient: Coding Level of Care Code 51134 Subseq Hosp Care Lvl 3 Diagnoses Idiopathic intracranial hypertension G93.2 Persistent postural-perceptual dizziness R42 Weakness R53.1 POTS (postural orthostatic tachycardia syndrome) I49.8 Headache R51.9 Ankylosing spondylitis M45.9 Time Spent (min) 45
[2021-09-29 08:45] LABS: BUN Creatinine Ratio 14.5 (10-20); Calcium 9.2 mg/dl (8.5-10.1); Creatinine Clr Calc Pharmacy 149.4 ml/min; Est GFR (African American) 136.4 ml/min; Est GFR (Non-African American) 117.6 ml/min; Phosphorus 3.9 mg/dl (2.5-4.9); Potassium 3.4 mmol/L (3.5-5.1)
--- NOTE | 2021-09-29 09:33 | Hospitalist Progress Note ---
Date of Service September 28, 2021 Assessment & Plan (1) Chronic chest pain: Plan: This is a 36-year-old female who presents with ongoing muscle pain, muscle weakness and chest pain, history of intracranial hypertension or pseudotumor cerebri, stopped taking Diamox. 1. Chest pain. The patient is following Cardiology for palpitations. She is on metoprolol.Initial workup is negative. We will do serial enzymes, echo, and consult Cardiology. Monitor in the med/tele floor. Troponin negative Repeat EKG w/o changes Echo pending 2. History of intracranial hypertension or pseudotumor cerebri. Follow up with Neurology. Was on Diamox, but stopped Diamox because of her muscle pains, thought her muscle pains and weakness causing from it . Has some pressure in the eyes. Will consult neurology while the patient is in the hospital. Per neurology - pt had extensive work-up, pls see Dr. Fay's detailed note. Recommend to cont. Dyazide. Can try Cymbalta Consider obtaining ESR, CRP 3. History of palpitations. Continue metoprolol succinate. 4. History of gastroesophageal reflux disease. Continue Pepcid. 5. Sleep apnea. CPAP at bedtime. 6. History of asthma, currently stable. 7. Deep venous thrombosis prophylaxis. Sequential compression devices. DISPOSITION: Observe in med tele. PT/OT prior to discharge. Social service to help with discharge planning. Admission and Anticipated Discharge Date Admission Date: September 27, 2021 Subjective Patient seen in follow-up of chest pain, muscle aches Patient reports having chest pain 7 out of 10, says that its been progressively worse over several weeks Reports some back pain, and chest pain, with some radiation to her neck and around the chest She is currently able to speak in full sentences, and she saturating well on room air Denies fevers chills, abdominal pain, nausea vomiting Neurology and cardiology consulted Repeat EKG ordered, troponin negative Currently awaiting results of echocardiogram Review of Systems Review of Systems: All systems reviewed & are unremarkable except as noted in Subjective Physical Exam Physical Exam: GENERAL: The patient is morbidly obese F, not in acute distress. HEENT: NC/AT. Pupils equal, round and reactive to light. Oral mucosa moist. NECK: No JVD, no neck masses. CARDIOVASCULAR: S1 and S2 heard. Regular rate and rhythm. No murmur, no gallop. RESPIRATORY: Normal AP diameter. No accessory muscle use. No wheezing, no crackles. ABDOMEN: Soft, bowel sounds present, nontender, no distention. NEURO: Alert and oriented. No facial droop. Speech is clear.Strength 5/5 in all extremities.Moves extremities. EXTREMITIES: No edema, no erythema. Results & Data Results & Data ([facility]) Vital Signs (Past 12 Hours) Vital Signs Temp Pulse Pulse Resp BP Pulse Ox 09/29/21 00:55 71 09/28/21 23:07 36.9 C 66 18 126/82 100
--- NOTE | 2021-09-29 09:34 | Hospitalist Progress Note ---
Date of Service September 29, 2021 Assessment & Plan (1) Chronic chest pain: Plan: This is a 36-year-old female who presents with ongoing muscle pain, muscle weakness and chest pain, history of intracranial hypertension or pseudotumor cerebri, stopped taking Diamox. 1. Chest pain. The patient is following Cardiology for palpitations. She is on metoprolol.Initial workup is negative. Ordered serial enzymes, echo, and consult Cardiology. Monitor in the med/tele floor. Troponin negative Repeat EKG w/o changes sinus rhythm on tele Echo -consistent with normal examination Cardiology was consulted, and patient was evaluated. No further cardiac testing warranted. 2. History of intracranial hypertension or pseudotumor cerebri. Follow up with Neurology. Was on Diamox, but stopped Diamox because of her muscle pains, thought her muscle pains and weakness causing from it . Has some pressure in the eyes. Will consult neurology while the patient is in the hospital. Per neurology - pt had extensive work-up, pls see Dr. Fay's detailed note. Discussed patient's case in detail with Dr. Fay, her testing, not consistent with pseudotumor cerebri nor POTS Recommend to cont. Dyazide. Can try Cymbalta (however patient hesitant to try SSRIs) Will obtain ESR, CRP, patient may need further rheumatologic work-up as outpatient. Given her presentation, recommend to obtain MRI of cervical and thoracic spine without contrast. This study was ordered. Patient also may undergo skin biopsy for small fiber neuropathy as well as standard muscle biopsy. These studies would to be done as outpatient. 3. History of palpitations. Continue metoprolol succinate. 4. History of gastroesophageal reflux disease. Continue Pepcid. 5. Sleep apnea. CPAP at bedtime. 6. History of asthma, currently stable. 7. Deep venous thrombosis prophylaxis. Sequential compression devices. DISPOSITION: Observe in med tele. PT/OT prior to discharge. Social service to help with discharge planning. Admission and Anticipated Discharge Date Admission Date: September 27, 2021 Subjective Patient seen in follow-up of chest pain, muscle aches Patient reports having chest pain/pressure that has been progressively worse over several weeks Reports some back pain, and chest pain, with some radiation to her neck and around the chest She is currently able to speak in full sentences, and she saturating well on room air Denies fevers chills, abdominal pain, nausea vomiting Neurology and cardiology consulted Review of Systems Review of Systems: All systems reviewed & are unremarkable except as noted in Subjective Physical Exam Physical Exam: GENERAL: The patient is morbidly obese F, not in acute distress. HEENT: NC/AT. Pupils equal, round and reactive to light. Oral mucosa moist. NECK: No JVD, no neck masses. CARDIOVASCULAR: S1 and S2 heard. Regular rate and rhythm. No murmur, no gallop. RESPIRATORY: Normal AP diameter. No accessory muscle use. No wheezing, no crackles. ABDOMEN: Soft, bowel sounds present, nontender, no distention. NEURO: Alert and oriented. No facial droop. Speech is clear.Strength 5/5 in all extremities.Moves extremities. EXTREMITIES: No edema, no erythema. Results & Data Results & Data ([facility]) Vital Signs (Past 12 Hours) Vital Signs Temp Pulse Pulse Resp BP Pulse Ox 09/29/21 07:41 36.5 C 86 18 117/75 98 09/29/21 07:19 64 09/29/21 03:16 36.6 C 60 18 129/72 94 09/29/21 00:55 71 09/28/21 23:07 36.9 C 66 18 126/82 100 Laboratory Results 09/29/21 09/29/21 09/28/21 Range/Units 09:18 07:37 11:31 ESR Pending D-Dimer 270 (0-500) ug/L FEU Sodium 136 (136-145) mmol/L Potassium 3.4 L (3.5-5.1) mmol/L Chloride 102 (98-107) mmol/L Carbon Dioxide 25 (21-32) mmol/L Anion Gap 9 (3-11) BUN 9 (6-23) mg/dl Creatinine 0.62 (0.6-1.2) mg/dl Est Cr Clr Drug Dosing 149.4 ml/min Est GFR ( Amer) 136.4 ml/min Est GFR (Non-Af Amer) 117.6 ml/min BUN/Creatinine Ratio 14.5 (10-20) Glucose 82 (70-99(Fasting)) mg/dl Calcium 9.2 (8.5-10.1) mg/dl Phosphorus 3.9 (2.5-4.9) mg/dl Magnesium 2.0 (1.7-2.4) mg/dl Troponin I High Sens (0-14) pg/ml 09/28/21 Range/Units 11:03 ESR D-Dimer (0-500) ug/L FEU Sodium (136-145) mmol/L Potassium (3.5-5.1) mmol/L Chloride (98-107) mmol/L Carbon Dioxide (21-32) mmol/L Anion Gap (3-11) BUN (6-23) mg/dl Creatinine (0.6-1.2) mg/dl Est Cr Clr Drug Dosing ml/min Est GFR ( Amer) ml/min Est GFR (Non-Af Amer) ml/min BUN/Creatinine Ratio (10-20) Glucose (70-99(Fasting)) mg/dl Calcium (8.5-10.1) mg/dl Phosphorus (2.5-4.9) mg/dl Magnesium (1.7-2.4) mg/dl Troponin I High Sens < 2.3 (0-14) pg/ml Medications Administered Current Inpatient Medications Acetaminophen (Acetaminophen 325 Mg Tab) 650 mg PO Q4H PRN PRN Reason: Pain or Fever Stop: 10/28/21 00:02 Last Admin: 09/28/21 11:14 Dose: 650 mg Documented by: Famotidine (Famotidine 20 Mg Tab) 20 mg PO DAILY [facility] Stop: 10/28/21 08:59 Last Admin: 09/29/21 08:04 Dose: 20 mg Documented by: Ciprofloxacin (Cipro / D5w) 400 mg in 200 mls @ 100 mls/hr IV Q12H ANNA; Protocol Stop: 10/08/21 01:59 Last Infusion: 09/29/21 03:24 Dose: Infused Documented by: Loratadine (Loratadine 10 Mg Tab) 10 mg PO HS PRN PRN Reason: Congestion Stop: 10/28/21 00:02 Melatonin (Melatonin 3 Mg Tab) 4.5 mg PO HS PRN PRN Reason: Sleep Last Admin: 09/28/21 23:34 Dose: 4.5 mg Documented by: Meloxicam (Meloxicam 7.5 Mg Tab) 15 mg PO QAM ANNA Stop: 10/29/21 09:14 Metoprolol Succinate (Metoprolol Succ 25mg Ext Rel Tab) 25 mg PO HS ANNA Stop: 10/28/21 20:59 Last Admin: 09/28/21 20:12 Dose: Not Given Documented by: Multivitamins (Multivitamin Tab) 1 tab PO QAM [facility] Stop: 10/28/21 08:59 Last Admin: 09/29/21 08:04 Dose: Not Given Documented by: Nitroglycerin (Nitroglycerin Sl 0.4 Mg/Tab Tab) 0.4 mg SL UD PRN PRN Reason: Chest Pain Stop: 10/28/21 00:02 Last Admin: 09/28/21 11:04 Dose: 0.4 mg Documented by: Ondansetron HCl (Ondansetron Inj 2 Mg/Ml 2 Ml Vial) 4 mg IV Q6H PRN PRN Reason: Nausea Stop: 10/28/21 00:02 Polyethylene Glycol (Polyethylene (Miralax) 17 Gm Pack) 17 gm PO DAILY PRN PRN Reason: Constipation Stop: 10/28/21 00:02 Triamterene/Hydrochlorothiazide (Triamterene/Hctz 37.5/25mg Tab) 1 tab PO DAILY [facility] Stop: 10/28/21 08:59 Last Admin: 09/29/21 08:05 Dose: 1 tab Documented by:
[2021-09-29] MEDS ORDERED: POTASSIUM CHLORIDE CRTAB 20 MEQ TABCR PO STA (09:35)
[2021-09-29] MEDS: MELOXICAM 7.5 MG TAB PO SCH (10:39)
--- NOTE | 2021-09-29 13:52 | Magnetic Resonance Report ---
MR OF THE CERVICAL SPINE WITHOUT IV CONTRAST CLINICAL HISTORY: chest /back pain TECHNIQUE: MRI of the cervical spine is performed utilizing various T1 and T2 sequences in the axial and sagittal planes. IV contrast was not administered for this examination. Comparison: Comparison is made to CT cervical spine 02/06/2021 FINDINGS: Cervical spine: Vertebral body height and alignment are maintained throughout the cervical spine. The atlantodental articulation appears maintained. No destructive bony lesion is seen. Intervertebral discs: Degenerative changes are noted in the discs and vertebral bodies. These are mos t prominent at C5-C6. Spinal cord: The cervical spinal cord is normal in morphology and signal intensity. C2-C3: Unremarkable. C3-C4: Mild right neural foraminal stenosis. C4-C5: Unremarkable. C5-C6: Mild right neural foraminal stenosis. C6-C7: Unremarkable. C7-T1: Unremarkable. Soft tissues: The paraspinous and prevertebral soft tissues are normal in appearance. Brain parenchyma: Partially imaged brain parenchyma at the skull base is within normal limits. IMPRESSION: Mild right neural foraminal stenosis is seen. ACT 112: Negative or not required by law. Electronically signed by: Juice Smith M.D. 09/29/2021 1:51 PM
[2021-09-29] MEDS: DICLOFENAC SOD 1% GEL 100 GM TUBE EXT SCH ×3 (13:55→21:11)
--- NOTE | 2021-09-29 15:26 | Magnetic Resonance Report ---
MR THORACIC SPINE WO CON HISTORY: 36 years-old Female chest/back pain, acute mid back pain without reported trauma. COMPARISON: MRI cervical spine of same day, chest CT 07/07/2021 TECHNIQUE: Multiplanar multisequence MRI of the thoracic spine was obtained without the use of IV con trast. FINDINGS: Motion degraded exam. Signal within the imaged cervical and thoracic spinal cord appears normal. The conus medullaris terminates at T12-L1. No mass of the central canal identified. No epidural fluid col lections. The imaged intrathoracic structures appear unremarkable. Paraspinal tissues are within norm al limits. There are a few scattered thoracic hemangiomata noted measuring up to 9 mm at T6. No acute fracture, subluxation, endplate erosion, significant bone marrow or soft tissue edema. T10-T11: Mild intervertebral disc space narrowing and disc desiccation and spondylitic spurring. Ther e is a small posterior annular disc bulge, eccentric to the left. Mild associated facet arthrosis. Mi ld narrowing of the left lateral recess with mild central canal stenosis, AP dimension of the thecal sac measuring 7.5 mm. The right neural foramen is patent. Mild narrowing of the inferior left neural foramen. T11-T12: Mild intervertebral disc space narrowing with disc desiccation and spondylitic spurring. The re is a posterior annular disc bulge with left paracentral disc extrusion extending approximately 6 m m caudal to the T12 superior endplate. There is mild flattening of the ventral thecal sac without sig nificant central canal stenosis. AP dimension of the thecal sac measures at least 9 mm. No neural for aminal narrowing. IMPRESSION: 1. Motion degraded exam. No acute fracture or bone marrow edema. 2. Mild discogenic degeneration at T10-T11 and T11-T12 as above. 3. No high-grade central canal or neural foraminal narrowing. 4. Normal signal of the thoracic spinal cord. ACT 112: Negative or not required by law. The above report was generated using voice recognition software. It may contain grammatical, syntax o r spelling errors. Dictated: 09/29/2021 1:36 PM Transcribed: 09/29/2021 3:07 PM Lorraine [id number] [facility] Electronically signed by: Jesu Jackson M.D. 09/29/2021 3:24 PM
[2021-09-29] MEDS: METOPROLOL SUCC 25MG EXT REL TAB PO SCH (21:09)
[2021-09-29] MEDS: MELATONIN 3 MG TAB PO PRN (23:37)
--- NOTE | 2021-09-30 06:34 | Electrocardiogram Report ---
Test Reason : Blood Pressure : / mmHG Vent. Rate : 062 BPM Atrial Rate : 062 BPM P-R Int : 142 ms QRS Dur : 078 ms QT Int : 420 ms P-R-T Axes : -07 -05 -06 degrees QTc Int : 426 ms Normal sinus rhythm Moderate voltage criteria for LVH, may be normal variant Nonspecific T wave abnormality Abnormal ECG When compared with ECG of 28-SEP-2021 11:11, No significant change was found Confirmed by Darryl Fernandez ([id number]) on 09/30/2021 6:33:58 AM Referred By: Buddy Braxton Confirmed By:Darryl Fernandez
[2021-09-30 06:50] LABS: BUN Creatinine Ratio 20.6 (10-20); Calcium 9.5 mg/dl (8.5-10.1); Creatinine Clr Calc Pharmacy 146.2 ml/min; Est GFR (African American) 135.6 ml/min; Phosphorus 4.1 mg/dl (2.5-4.9); Potassium 3.8 mmol/L (3.5-5.1)
[2021-09-30] MEDS: DICLOFENAC SOD 1% GEL 100 GM TUBE EXT SCH ×4 (08:07→20:34)
[2021-09-30] MEDS: FAMOTIDINE 20 MG TAB PO SCH (08:08)
[2021-09-30] MEDS: TRIAMTERENE/HCTZ 37.5/25MG TAB PO SCH (08:09)
[2021-09-30] MEDS: MULTIVITAMIN TAB PO SCH (08:09)
[2021-09-30] MEDS: MELOXICAM 7.5 MG TAB PO SCH ×2 (08:10→15:02)
--- NOTE | 2021-09-30 08:56 | Hospitalist Progress Note ---
Date of Service September 30, 2021 Assessment & Plan (1) Chronic chest pain: Plan: This is a 36-year-old female who presents with ongoing muscle pain, muscle weakness and chest pain, history of intracranial hypertension or pseudotumor cerebri, stopped taking Diamox. 1. Chest pain. The patient is following Cardiology for palpitations. She is on metoprolol.Initial workup is negative. Ordered serial enzymes, echo, and consult Cardiology. Monitor in the med/tele floor. Troponin negative Repeat EKG w/o changes sinus rhythm on tele Echo -consistent with normal examination Cardiology was consulted, and patient was evaluated. No further cardiac testing warranted. 2. History of intracranial hypertension or pseudotumor cerebri. Follow up with Neurology. Was on Diamox, but stopped Diamox because of her muscle pains, thought her muscle pains and weakness causing from it . Has some pressure in the eyes. Will consult neurology while the patient is in the hospital. Per neurology - pt had extensive work-up, pls see Dr. Fay's detailed note. Discussed patient's case in detail with Dr. Fay, her testing, not consistent with pseudotumor cerebri nor POTS Recommend to cont. Dyazide. Can try Cymbalta (however patient hesitant to try SSRIs) Will obtain ESR, CRP, patient may need further rheumatologic work-up as outpatient. Given her presentation, recommend to obtain MRI of cervical and thoracic spine without contrast. This study was obtained as below Patient also may undergo skin biopsy for small fiber neuropathy as well as standard muscle biopsy. These studies would to be done as outpatient. MRI cervical spine IMPRESSION: Mild right neural foraminal stenosis is seen. MRI thoracic spine IMPRESSION: 1. Motion degraded exam. No acute fracture or bone marrow edema. 2. Mild discogenic degeneration at T10-T11 and T11-T12 as above. 3. No high-grade central canal or neural foraminal narrowing. 4. Normal signal of the thoracic spinal cord. Patient also continues to have sternal pain, and epigastric/upper abdominal pain. I discussed with radiology, to review previous images and to recommend further imaging to evaluate this as previous studies not explaining her symptoms. Patient is also allergic to CT dye. Recommend obtaining CT chest without contrast to further evaluate sternal and chest ulcer, compare images from June. Recommend abdominal MRI with contrast to evaluate vasculature, rule out SMA syndrome. Of note, patient reports weight loss without trying to lose weight. 3. History of palpitations. Continue metoprolol succinate. 4. History of gastroesophageal reflux disease. Continue Pepcid. 5. Sleep apnea. CPAP at bedtime. 6. History of asthma, currently stable. 7. Deep venous thrombosis prophylaxis. Sequential compression devices. DISPOSITION: Observe in med tele. PT/OT prior to discharge. Social service to help with discharge planning. Admission and Anticipated Discharge Date Admission Date: September 27, 2021 Subjective Patient seen in follow-up of chest pain, muscle aches Patient reports having chest pain/pressure that has been progressively worse over several weeks Reports some back pain, and chest pain, with some radiation to her neck and around the chest She is currently able to speak in full sentences, and she saturating well on room air Denies fevers chills, abdominal pain, nausea vomiting Neurology and cardiology consulted Review of Systems Review of Systems: All systems reviewed & are unremarkable except as noted in Subjective Physical Exam Physical Exam: GENERAL: The patient is morbidly obese F, not in acute distress. HEENT: NC/AT. Pupils equal, round and reactive to light. Oral mucosa moist. NECK: No JVD, no neck masses. CARDIOVASCULAR: S1 and S2 heard. Regular rate and rhythm. No murmur, no gallop. RESPIRATORY: Normal AP diameter. No accessory muscle use. No wheezing, no crackles. ABDOMEN: Soft, bowel sounds present, nontender, no distention. NEURO: Alert and oriented. No facial droop. Speech is clear.Strength 5/5 in all extremities.Moves extremities. EXTREMITIES: No edema, no erythema. Results & Data Results & Data ([facility]) Vital Signs (Past 12 Hours) Vital Signs Temp Pulse Pulse Resp BP Pulse Ox 09/30/21 07:40 36.6 C 86 16 101/67 98 09/30/21 07:13 90 09/30/21 03:50 36.8 C 82 16 102/68 96 09/29/21 23:17 37.1 C 98 H 18 99/67 L 93 09/29/21 23:06 83 Laboratory Results 09/30/21 09/29/21 09/29/21 Range/Units 05:54 09:18 09:18 ESR 50 H (0-20) mm/hr Sodium 136 (136-145) mmol/L Potassium 3.8 (3.5-5.1) mmol/L Chloride 102 (98-107) mmol/L Carbon Dioxide 24 (21-32) mmol/L Anion Gap 10 (3-11) BUN 13 (6-23) mg/dl Creatinine 0.63 (0.6-1.2) mg/dl Est Cr Clr Drug Dosing 146.2 ml/min Est GFR ( Amer) 135.6 ml/min Est GFR (Non-Af Amer) 117.0 ml/min BUN/Creatinine Ratio 20.6 H (10-20) Glucose 93 (70-99(Fasting)) mg/dl Calcium 9.5 (8.5-10.1) mg/dl Phosphorus 4.1 (2.5-4.9) mg/dl Magnesium 2.0 (1.7-2.4) mg/dl C-Reactive Protein 1.91 H (0-0.5) mg/dl Medications Administered Current Inpatient Medications Acetaminophen (Acetaminophen 325 Mg Tab) 650 mg PO Q4H PRN PRN Reason: Pain or Fever Stop: 10/28/21 00:02 Last Admin: 09/28/21 11:14 Dose: 650 mg Documented by: Diclofenac Sodium (Diclofenac Sod 1% Gel 100 Gm Tube) 2 gm EXT QID [facility] Stop: 10/29/21 12:59 Last Admin: 09/30/21 08:07 Dose: Not Given Documented by: Famotidine (Famotidine 20 Mg Tab) 20 mg PO DAILY [facility] Stop: 10/28/21 08:59 Last Admin: 09/30/21 08:08 Dose: 20 mg Documented by: Loratadine (Loratadine 10 Mg Tab) 10 mg PO HS PRN PRN Reason: Congestion Stop: 10/28/21 00:02 Melatonin (Melatonin 3 Mg Tab) 4.5 mg PO HS PRN PRN Reason: Sleep Last Admin: 09/29/21 23:37 Dose: 4.5 mg Documented by: Meloxicam (Meloxicam 7.5 Mg Tab) 15 mg PO QAM [facility] Stop: 10/29/21 09:14 Last Admin: 09/30/21 08:10 Dose: Not Given Documented by: Metoprolol Succinate (Metoprolol Succ 25mg Ext Rel Tab) 25 mg PO HS [facility] Stop: 10/28/21 20:59 Last Admin: 09/29/21 21:09 Dose: Not Given Documented by: Multivitamins (Multivitamin Tab) 1 tab PO QAM [facility] Stop: 10/28/21 08:59 Last Admin: 09/30/21 08:09 Dose: Not Given Documented by: Nitroglycerin (Nitroglycerin Sl 0.4 Mg/Tab Tab) 0.4 mg SL UD PRN PRN Reason: Chest Pain Stop: 10/28/21 00:02 Last Admin: 09/28/21 11:04 Dose: 0.4 mg Documented by: Ondansetron HCl (Ondansetron Inj 2 Mg/Ml 2 Ml Vial) 4 mg IV Q6H PRN PRN Reason: Nausea Stop: 10/28/21 00:02 Polyethylene Glycol (Polyethylene (Miralax) 17 Gm Pack) 17 gm PO DAILY PRN PRN Reason: Constipation Stop: 10/28/21 00:02 Triamterene/Hydrochlorothiazide (Triamterene/Hctz 37.5/25mg Tab) 1 tab PO DAILY [facility] Stop: 10/28/21 08:59 Last Admin: 09/30/21 08:09 Dose: 1 tab Documented by:
[2021-09-30] MEDS ORDERED: predniSONE 20 MG TAB PO STA (13:03)
[2021-09-30] MEDS ORDERED: oxyCODONE HCL IR 5 MG TAB (IMMEDIATE RELEASE) PO PRN (13:04)
--- NOTE | 2021-09-30 14:17 | CT Scan Report ---
CT chest diagnostic wo con CLINICAL HISTORY: sternal pain COMPARISON STUDY: 07/07/2021 CT DOSE: 915.65 mGy.cm TECHNIQUE: Standard CT of the Chest was performed without IV contrast. A dose lowering technique was utilized adhering to the principles of ALARA. FINDINGS: Airway: The airway is clear. No endobronchial lesion is identified. Lungs: Previously identified groundglass opacities have resolved. The lungs are clear of acute alveol ar opacities, air bronchograms or pulmonary nodules. Pleura: There is no evidence for pleural effusion. There is no evidence for pneumothorax. Mediastinum: There is no evidence for pathologic adenopathy on these limited noncontrast images. The heart size is within normal limits. The thoracic aorta is within normal limits. There is no evidence for pericardial effusion. Upper abdomen: The adrenal glands are normal bilaterally. Osseous structures: There is no acute osseous pathology. The appearance of the sternum is unchanged f rom the previous study. There is no evidence for fracture or bone destruction. The sternum was imaged in axial, coronal and sagittal projections. IMPRESSION: 1. There is no acute chest disease on these noncontrast images. 2. Negative evaluation of the sternum. ACT 112: Negative or not required by law. Electronically signed by: Bharath Melton M.D. 09/30/2021 2:14 PM
[2021-09-30] MEDS: PANTOprazole 40 MG TAB PO SCH (15:03)
[2021-09-30] MEDS: LIDOCAINE 5% 1 PATCH TD SCH (15:03)
[2021-09-30] MEDS ORDERED: KETOROLAC 30 MG/ML VIAL IV PRN (16:44)
[2021-09-30] MEDS ORDERED: GADOBUTROL 65ML VIAL IV ONE (17:45)
--- NOTE | 2021-09-30 18:29 | Magnetic Resonance Report ---
PROCEDURE: MR angio abdomen wo/w con CLINICAL HISTORY: Increased chest pain with rapid heart rate. Evaluate for possible SMA syndrome.. COMPARISON: CT of the abdomen and pelvis without contrast from 08/29/2021 TECHNIQUE: MR angiogram of the abdomen is performed with 3-D time of flight and postcontrast techniq ues following 11 mL of Gadavist intravenous contrast. FINDINGS: VASCULAR FINDINGS: Abdominal aorta: The aorta is normal in course and caliber. There is no evidence for aneurysm, dissec tion or stenosis. No atherosclerotic plaque is present.. Celiac trunk: patent without stenosis. Anatomic branching is demonstrated. Superior mesenteric artery: patent without stenosis. Anatomic branching is demonstrated. Right renal artery: patent without stenosis. Left renal artery: patent without stenosis. Inferior mesenteric artery: patent without stenosis. Right common iliac atery: patent without stenosis. Right internal iliac artery: patent without stenosis. Right external iliac artery: patent without stenosis. Left common iliac artery: patent without stenosis. Left internal iliac artery: patent without stenosis. Left external iliac artery: patent without stenosis. NONVASCULAR FINDINGS: The visualized portions of the liver, spleen, pancreas and gallbladder appear normal. The adrenal gl ands appear normal. The kidneys appear normal. The bowel loops appear normally placed within the abdomen. There is no evidence for mucosal edema. IMPRESSION: 1. Normal CTA of the abdomen. 2. No acute intra-abdominal abnormality. ACT 112: Negative or not required by law. Electronically signed by: Bharath Melton M.D. 09/30/2021 6:26 PM
[2021-09-30] MEDS ORDERED: METOPROLOL TARTRATE 1 MG/ML VIAL IV STA (19:43)
[2021-09-30] MEDS: METOPROLOL SUCC 25MG EXT REL TAB PO SCH (22:16)
[2021-09-30] MEDS: MELATONIN 3 MG TAB PO PRN (23:28)
[2021-10-01] MEDS: LIDOCAINE 5% 1 PATCH TD SCH (10:06)
[2021-10-01] MEDS: DICLOFENAC SOD 1% GEL 100 GM TUBE EXT SCH ×4 (10:06→21:52)
[2021-10-01] MEDS: MULTIVITAMIN TAB PO SCH (10:24)
[2021-10-01] MEDS: TRIAMTERENE/HCTZ 37.5/25MG TAB PO SCH (10:24)
[2021-10-01] MEDS: FAMOTIDINE 20 MG TAB PO SCH (10:24)
[2021-10-01] MEDS: MELOXICAM 7.5 MG TAB PO SCH ×2 (10:25)
[2021-10-01] MEDS: PANTOprazole 40 MG TAB PO SCH (12:12)
[2021-10-01] MEDS ORDERED: LORazepam 0.5 MG TAB PO PRN (12:29)
[2021-10-01] MEDS: METOPROLOL SUCC 25MG EXT REL TAB PO SCH (21:39)
[2021-10-01] MEDS: MELATONIN 3 MG TAB PO PRN (23:04)
[2021-10-02] MEDS: DICLOFENAC SOD 1% GEL 100 GM TUBE EXT SCH ×4 (08:16→20:07)
[2021-10-02] MEDS: LIDOCAINE 5% 1 PATCH TD SCH (08:16)
[2021-10-02] MEDS: TRIAMTERENE/HCTZ 37.5/25MG TAB PO SCH (08:17)
[2021-10-02] MEDS: FAMOTIDINE 20 MG TAB PO SCH (08:17)
[2021-10-02] MEDS: MULTIVITAMIN TAB PO SCH (08:18)
[2021-10-02] MEDS: PANTOprazole 40 MG TAB PO SCH (08:18)
[2021-10-02] MEDS: MELOXICAM 7.5 MG TAB PO SCH ×2 (08:18)
--- NOTE | 2021-10-02 08:23 | Psychiatric Consultation ---
Date of Consultation October 02, 2021 Impression / Recommendations Impression 36 yo woman with multiple neurologic and cardiac concerns, history of anxiety engaged in outpatient psychotherapy, presenting with ongoing chest pain, weakness and anxiety despite extensive medical workup in outpatient and inpatient settings with no significant findings nor clear explanations for her symptoms to date. Diagnostically she presents with some anxiety and distress, noting frustration with symptoms and how this limits her ability to be independent, but she is also somewhat minimizing of symptoms at times noting that she can tolerate them and does not need any medication or additional help other then her specific goal of having further cardiac tests. Certainly she could have some type of medication condition that is more unusual or atypical in nature that is continuing to cause symptoms but it is a bit unusual that she is not experiencing any reassurance from her negative testing and workups and that she is very averse to any potential medication side effect possibilities but tolerating of invasive and risky procedures such as LPs, cardiac cath, muscle biopsies. This points to a potential diagnosis of somatic symptom disorder especially given her high health care utilization, age, gender, and history of anxiety with fatigue, dizziness, weakness, chest pain, and palpitations as well as loss of occupational and role functioning. Functional neurologic disorder remains on differential but is less likely given multiple somatic concerns, especially some which are cardiac in nature, and some distress about symptoms (lacks indifference typically seen with FNS). This does not mean that further medical workup should not occur when indicated, and diagnosable conditions should continue to be treated and addressed, but the focus ideally is on functional improvement and regaining independence in regards to other more vague or impairing symptoms for which there has been no identified condition. Recommend PT, specific exercise/activity goals, ongoing psychotherapy with focus on relaxation strategies, ongoing psychoeducation, and regular follow-up appointments with her primary care physician. If she agrees an SSRI could be tried in the future, she declines at this time. Will order mirtazapine at [facility] as she is willing to try this. Reviewed indication for anxiety and sleep and side effects and she consented to consider trying it. Acute risk is low given denial of SI and low score on PHQ-9 and no hx of prior attempts. Safe for discharge from psychiatric standpoint once medically stable (1) Somatic symptom disorder: (2) Chest pain: Chest pain type: precordial pain Qualified Code(s): R07.2 - Precordial pain (3) Palpitations: (4) Sinus tachycardia: (5) Idiopathic intracranial hypertension: (6) Persistent postural-perceptual dizziness: (7) Generalized weakness: -Start mirtazapine 7.5 mg qhs Psych History Identifying Data 36 yo woman with history of recent COVID infection (Jun 2021), asthma, sleep apnea, GERD, pericarditis, atypical chest pain, atypical migraine, possible POTS, idiopathic intracranial hypertension, persistent postural-perceptual dizziness and ankylosing spondylitis admitted medically for shortness of breath and chest pain. Psychiatry was consulted for recommendations regarding anxiety. Chief Complaint "I know this isn't caused by psychiatric symptoms". History of Present Illness Verna is familiar to me from my a previous psychiatry consult during her admission for COVID in June 2021. Of note she has been experiencing her medical symptoms prior to recent COVID infection. At that time she was experiencing anxiety due to worsening dizziness and balance issues consistent with adjustment d/o with anxiety vs anxiety 2/2 medical condition. PHQ-9 at that time was 9. She was encouraged to begin outpatient therapy which she has been engaging in weekly with Sheila through [facility] [place] for the last few months. Today she reports frustration with her negative medical workup, particularly that she feels she is having "inverted P waves" on her EKG during periods of palpitations and feels that cardiology has been unable to provide further diagnostic answers as she wishes to have further cardiology workup via an "electrophysiology study". She acknowledges she has had an extensive cardic workup in the past including stress test, cath study, telemetry during this admission and at home holter monitors but feels the telemetry and holter have not accurately captured the cardiac events she experiences. She also notes difficulty with dizziness and seeing flashing lights before going to sleep. Initially states her sleep is very poor due to flashing lights and seeing images in her head which make it difficult to fall asleep but then states melatonin works well. When we discuss that it sounds like melatonin isn't working that well if she's still having significant flashing light symptoms she notes that this only occurs "a few times per week" but that on nights she can fall asleep it is never restful and she always has very low energy the next day. Reviewed potential causes of psychiatric conditions contributing to her symptoms such as somatic symptom disorder or functional neurological disorder. Discussed that conversion disorder is a diagnosis of exclusion and less likely but that somatic symptom disorder can be present in the setting of other medical conditions and that given her extensive workup so far I think they should be part of the differential. She continues to reiterate her concern that her symptoms are cardiac or vascular in nature especially due to extensive family history of cardiac issues. She declines starting an SSRI or SNRI as she previously tried these for many months and had "tons of panic attacks and it never got any better". She also tried propranolol in the past but got side effects and notes she tried various benzodiazepines without benefit. Has prn ativan available during this hospitalization but has not used it. PHQ-9 score of 4, Q9 is 0. Denies SI. Notes frustration with prior adjustment disorder diagnos is stating "that caused my PCP to refuse to do any further workup because they said it was because of anxiety". We reviewed my recommendation that it be worthwhile to try mirtazapine as worst case it causes side effects and then she can stop it. Reviewed that alternative is continuing to experience low energy and disrupted sleep. She remains unsure but agreed to allow me to order it and she can decide to try it. She has been seen by neurology, cardiology, gastroenterology and hospitalist service with no significant findings so far to explain her cardiac, syncope or dizziness symptoms. Further history per psych liason note on 10/01/21: "Rounded on patient for initial assessment. Patient was made aware of consult prior to visit. Pleasant and cooperative. Patient's mother at bedside, permission given by patient to speak in front of her. She stated her mother has been "very" supportive and has been having to assist her at home cooking meals, and cleaning due to her medical issues of elevated heart rate and dizziness. She stated that she has talked to so many mental health providers since her health problems started. Denies anxiety, or depression. She stated she does see an outpatient therapist and is currently on no medications for anxiety. She denies any prior inpatient mental health treatment, SI/HI. Does report access to weapons, stated "I would never use them to hurt myself though." Expressed frustration of not being able to complete ADL's without chest pain or dizziness. Her mother denies any concerns of mental health issues, stated "only medical." Scored 4 on PhQ-9 scale, #9~0. Stated her appetite has changed due to c/o chest pain and sleep has been poor. Patient did stand up during visit at bedside with elevated HR visible on monitor. Patient encouraged to sit back on bed. Denies needing anything from our service at this time, encouraged patient to reach out with any questions/concerns" Past Psychiatric History Outpatient Services: therapy with She[facility] through [facility] once weekly via telemedicine Previous Psych Admissions: none Past Medication Trials: see subjective-zoloft, Cymbalta, buspar, celexa, ativan, valium; reports all have caused side effects Allergies Allergy/AdvReac Type Severity Reaction Status Date / Time amoxicillin Allergy Severe ANAPHYLAXIS Verified 09/27/21 21:15 clavulanic acid Allergy Severe ANAPHYLAXIS Verified 09/27/21 21:15 Iodinated Contrast Media Allergy Severe Hives, Verified 09/27/21 21:15 tongue swelling doxycycline Allergy Intermediate Rash Verified 09/27/21 21:15 egg Allergy Intermediate Hives Verified 09/27/21 21:15 fish derived Allergy Intermediate Hives Verified 09/27/21 21:15 metronidazole Allergy Intermediate rash Verified 09/27/21 21:15 sulfamethoxazole Allergy Intermediate tongue Verified 09/27/21 21:15 [From Bactrim] swelling trimethoprim [From Bactrim] Allergy Intermediate tongue Verified 09/27/21 21:15 swelling coffee (Coffea arabica) Allergy Unknown per Verified 09/27/21 21:15 allergy testing Penicillins Allergy Unknown per Verified 09/24/21 16:29 allergy testing Home Medications Medication Instructions Recorded Confirmed Type multivitamin 1 tab PO QAM 03/27/18 09/27/21 History loratadine 10 mg tablet (Claritin) 10 mg PO HS PRN 03/21/20 09/27/21 History metoprolol succinate 25 mg 25 mg PO HS 08/28/21 09/27/21 History tablet,extended release 24 hr ergocalciferol (vitamin D2) 1,250 1,250 mcg PO WK 08/29/21 09/27/21 History mcg (50,000 unit) capsule ketoconazole 2 % shampoo 1 applic TOPICAL 2XWK 09/24/21 09/27/21 History famotidine 20 mg tablet (Pepcid) 20 mg PO DAILY 09/27/21 09/27/21 History melatonin 5 mg tablet 5 mg PO HS PRN 09/27/21 09/27/21 History triamterene 75 1 tab PO DAILY #30 tab 09/27/21 09/27/21 Rx mg-hydrochlorothiazide 50 mg tablet (Maxzide) Personal History Highest Grade Completed: Some College Beliefs That Will Affect Care: None Patient History Medical History Abnormal EEG Ankylosing spondylitis Anxiety and depression Change in vision Chest pain Chest pain COVID-19 Degenerative disc disease Dizziness DVT (deep venous thrombosis) Eustachian tube dysfunction Fatigue GERD (gastroesophageal reflux disease) Headache Heart palpitations High cholesterol History of bradycardia History of bulimia History of pre-eclampsia Insomnia Iron deficiency anemia Migraine Morbid obesity with BMI of 40.0-44.9, adult Seasonal allergies Thoracic disc disease Vitamin B12 deficiency Vitamin D deficiency Surgical History History of cardiac cath 06/2015 @ [facility] [place]--d/t chest pain, normal no stents History of cholecystectomy History of esophagogastroduodenoscopy (EGD) History of wisdom tooth extraction Family History Father Hypertension Mother Diabetes Grandfather (Maternal) Diabetes Coronary heart disease Myocardial infarction Congestive heart failure Colorectal cancer Grandfather (Paternal) Diabetes Coronary heart disease Myocardial infarction, Onset Age: 50 Grandmother (Paternal) Pulmonary emphysema Sick sinus syndrome Diabetes Pacemaker Grandmother (Maternal) Family history of diabetes mellitus Aunt Pulmonary emphysema Family/Other Myocardial infarction, Onset Age: 37 Coronary heart disease Uncle Stroke Other Asthma Lymphoma No family history of adverse response to anesthesia Denies family history of Ovarian cancer Prostate cancer Breast cancer Social History Smoking Status: Former smoker Tobacco Type: Cigarettes Second Hand Exposure: No; Hx Alcohol Use: No Hx Substance Use: No Preferred Language: Marshallese Communication Ability: Effective Communication Tools: Other Visual Impairment: No Limitations Hearing Ability: Normal Electro Tech Required: No Beliefs That Will Affect Care: None marital status: Current Living Situation: Spouse and Family Current Living Situation Comment: Lives with and daughter current occupational status: unemployed How many Children do You have: 1 Other Information That Helps Us Care for You: No Feels Safe at Home: Yes Safety Concerns: Feels Safe At This Time Childhood Exposure to Second-Hand Smoke: Yes caffeine: No during the past year weight has: remained stable Dental Care, Regularly: Yes Physical Activity Frequency: 5-6 Times per Week Seatbelt Use: never Sunscreen Use: Yes Assistive Devices: Wheelchair Physical Exam Psychiatric: Orientation: alert and oriented x 3 Apperance: appropriately dressed and appropriately groomed Eye Contact: good eye contact Motor Behavior: no abnormal motor movements Speech: normal rate/rhythm/volume of speech Affect: + anxious affect Mood: + anxious mood Thought Process: goal directed thought process Thought Content: reality based without delusions Suicidal Thoughts: denies suicidal thoughts Homicidal Thoughts: denies homicidal thoughts Hallucinations: no auditory hallucinations and no visual hallucinations Cognition: recent memory grossly intact, remote memory grossly intact, attention grossly intact and language grossly intact Estimated Intelligence: consistent with education level Insight: + limited insight Judgement: + limited judgement Vital Signs (Past 24 Hours): Last Vital Signs Temp 36.7 C 10/02/21 07:30 Pulse 74 10/02/21 07:30 Resp 18 10/02/21 07:30 BP 101/69 10/02/21 07:30 Pulse Ox 98 10/02/21 07:30 Review of Systems All systems reviewed & are unremarkable except as noted in HPI & below (chest pain, pounding in ears, dizziness, light flashes ) Results & Data (PSY) Diagnostic Findings EKG QTc 426 ms Medications Administered Acetaminophen (Acetaminophen 325 Mg Tab) 650 mg PO Q4H PRN PRN Reason: Pain or Fever Stop: 10/28/21 00:02 Last Admin: 09/28/21 11:14 Dose: 650 mg Documented by: [id number] Diclofenac Sodium (Diclofenac Sod 1% Gel 100 Gm Tube) 2 gm EXT QID ANNA Stop: 10/29/21 12:59 Last Admin: 10/02/21 08:16 Dose: Not Given Documented by: [id number] Admin: 10/01/21 21:52 Dose: Not Given Documented by: [id number] Admin: 10/01/21 16:44 Dose: Not Given Documented by: [id number] Admin: 10/01/21 12:12 Dose: Not Given Documented by: [id number] Admin: 10/01/21 10:06 Dose: Not Given Documented by: [id number] Admin: 09/30/21 20:34 Dose: Not Given Documented by: [id number] Admin: 09/30/21 16:20 Dose: Not Given Documented by: [id number] Admin: 09/30/21 10:17 Dose: Not Given Documented by: [id number] Admin: 09/30/21 08:07 Dose: Not Given Documented by: [id number] Admin: 09/29/21 21:11 Dose: 2 gm Documented by: [id number] Admin: 09/29/21 16:06 Dose: Not Given Documented by: [id number] Admin: 09/29/21 13:55 Dose: 2 gm Documented by: [id number] Famotidine (Famotidine 20 Mg Tab) 20 mg PO DAILY ANNA Stop: 10/28/21 08:59 Last Admin: 10/02/21 08:17 Dose: 20 mg Documented by: [id number] Admin: 10/01/21 10:24 Dose: 20 mg Documented by: [id number] Admin: 09/30/21 08:08 Dose: 20 mg Documented by: [id number] Admin: 09/29/21 08:04 Dose: 20 mg Documented by: [id number] Admin: 09/28/21 07:48 Dose: 20 mg Documented by: [id number] Lidocaine (Lidocaine 5% 1 Patch) 1 patch TD QAM ANNA Stop: 10/30/21 13:14 Last Admin: 10/02/21 08:16 Dose: Not Given Documented by: [id number] Admin: 10/01/21 10:06 Dose: Not Given Documented by: [id number] Admin: 09/30/21 15:03 Dose: Not Given Documented by: [id number] Melatonin (Melatonin 3 Mg Tab) 4.5 mg PO HS PRN PRN Reason: Sleep Last Admin: 10/01/21 23:04 Dose: 4.5 mg Documented by: [id number] Admin: 09/30/21 23:28 Dose: 4.5 mg Documented by: [id number] Admin: 09/29/21 23:37 Dose: 4.5 mg Documented by: [id number] Admin: 09/28/21 23:34 Dose: 4.5 mg Documented by: [id number] Admin: 09/28/21 00:38 Dose: 4.5 mg Documented by: [id number] Meloxicam (Meloxicam 7.5 Mg Tab) 15 mg PO QAM ANNA Stop: 10/29/21 09:14 Last Admin: 10/02/21 08:18 Dose: Not Given Documented by: [id number] Admin: 10/01/21 10:25 Dose: Not Given Documented by: [id number] Admin: 09/30/21 08:10 Dose: Not Given Documented by: [id number] Admin: 09/29/21 10:39 Dose: Not Given Documented by: [id number] Meloxicam (Meloxicam 7.5 Mg Tab) 15 mg PO QAM [facility] Stop: 10/30/21 13:14 Last Admin: 10/02/21 08:18 Dose: Not Given Documented by: [id number] Admin: 10/01/21 10:25 Dose: Not Given Documented by: [id number] Admin: 09/30/21 15:02 Dose: Not Given Documented by: [id number] Metoprolol Succinate (Metoprolol Succ 25mg Ext Rel Tab) 25 mg PO [facility] Stop: 10/28/21 20:59 Last Admin: 10/01/21 21:39 Dose: 25 mg Documented by: [id number] Admin: 09/30/21 22:16 Dose: Not Given Documented by: [id number] Admin: 09/29/21 21:09 Dose: Not Given Documented by: [id number] Admin: 09/28/21 20:12 Dose: Not Given Documented by: [id number] Miscellaneous (Remove Lidoderm Patch) 1 ea N/A DAILY@2100 [facility] Stop: 10/30/21 20:59 Last Admin: 10/01/21 21:53 Dose: Not Given Documented by: [id number] Admin: 09/30/21 20:35 Dose: Not Given Documented by: [id number] [facility]ivitamins ([facility]ivitamin Tab) [facility] Stop: 10/28/21 08:59 Last Admin: 10/02/21 08:18 Dose: Not Given Documented by: [id number] Admin: 10/01/21 10:24 Dose: 1 tab Documented by: [id number] Admin: 09/30/21 08:09 Dose: Not Given Documented by: [id number] Admin: 09/29/21 08:04 Dose: Not Given Documented by: [id number] Admin: 09/28/21 06:47 Dose: Not Given Documented by: [id number] Nitroglycerin (Nitroglycerin Sl 0.4 Mg/Tab Tab) 0.4 mg SL UD PRN PRN Reason: Chest Pain Stop: 10/28/21 00:02 Last Admin: 09/28/21 11:04 Dose: 0.4 mg Documented by: [id number] Ondansetron HCl (Ondansetron Inj 2 Mg/Ml 2 Ml Vial) 4 mg IV Q6H PRN PRN Reason: Nausea Stop: 10/28/21 00:02 Last Admin: 10/01/21 08:43 Dose: 4 mg Documented by: [id number] Pantoprazole Sodium (Pantoprazole 40 Mg Tab) 40 mg PO QAM [facility] Stop: 10/30/21 13:14 Last Admin: 10/02/21 08:18 Dose: Not Given Documented by: [id number] Admin: 10/01/21 12:12 Dose: 40 mg Documented by: [id number] Admin: 09/30/21 15:03 Dose: 40 mg Documented by: [id number] Triamterene/Hydrochlorothiazide (Triamterene/Hctz 37.5/25mg Tab) 1 tab PO DAILY [facility] Stop: 10/28/21 08:59 Last Admin: 10/02/21 08:17 Dose: 1 tab Documented by: [id number] Admin: 10/01/21 10:24 Dose: 1 tab Documented by: [id number] Admin: 09/30/21 08:09 Dose: 1 tab Documented by: [id number] Admin: 09/29/21 08:05 Dose: 1 tab Documented by: [id number] Admin: 09/28/21 07:48 Dose: 1 tab Documented by: [id number] Coding Level of Care Code 03220 Inpt Consult Level 3 Diagnoses Chest pain R07.2 Chest pain type: precordial pain Palpitations R00.2 Sinus tachycardia R00.0 Idiopathic intracranial hypertension G93.2 Persistent postural-perceptual dizziness R42 Generalized weakness R53.1 Somatic symptom disorder F45.1
--- NOTE | 2021-10-02 08:34 | Hospitalist Progress Note ---
Date of Service October 01, 2021 Assessment & Plan (1) Chronic chest pain: Plan: This is a 36-year-old female who presents with ongoing muscle pain, muscle weakness and chest pain, history of intracranial hypertension or pseudotumor cerebri, stopped taking Diamox. 1. Chest pain. The patient is following Cardiology for palpitations. She is on metoprolol.Initial workup is negative. Ordered serial enzymes, echo, and consult Cardiology. Monitor in the med/tele floor. Troponin negative Repeat EKG w/o changes sinus rhythm on tele Echo -consistent with normal examination Cardiology was consulted, and patient was evaluated. No further cardiac testing warranted. 2. History of intracranial hypertension or pseudotumor cerebri. Follow up with Neurology. Was on Diamox, but stopped Diamox because of her muscle pains, thought her muscle pains and weakness causing from it . Has some pressure in the eyes. Will consult neurology while the patient is in the hospital. Per neurology - pt had extensive work-up, pls see Dr. Fay's detailed note. Discussed patient's case in detail with Dr. Fay, her testing, not consistent with pseudotumor cerebri nor POTS Recommend to cont. Dyazide. Can try Cymbalta (however patient hesitant to try SSRIs) Will obtain ESR, CRP, patient may need further rheumatologic work-up as outpatient. Given her presentation, recommend to obtain MRI of cervical and thoracic spine without contrast. This study was obtained as below Patient also may undergo skin biopsy for small fiber neuropathy as well as standard muscle biopsy. These studies would to be done as outpatient. MRI cervical spine IMPRESSION: Mild right neural foraminal stenosis is seen. MRI thoracic spine IMPRESSION: 1. Motion degraded exam. No acute fracture or bone marrow edema. 2. Mild discogenic degeneration at T10-T11 and T11-T12 as above. 3. No high-grade central canal or neural foraminal narrowing. 4. Normal signal of the thoracic spinal cord. Patient also continues to have sternal pain, and epigastric/upper abdominal pain. I discussed with radiology, to review previous images and to recommend further imaging to evaluate this as previous studies not explaining her symptoms. Patient is also allergic to CT dye. Recommend obtaining CT chest without contrast to further evaluate sternal and chest ulcer, compare images from June. Recommend abdominal MRI with contrast to evaluate vasculature, rule out SMA syndrome. Of note, patient reports weight loss without trying to lose weight. CT chest w/o -unremarkable MRI abdomen, with contrast - 1. Normal CTA of the abdomen. 2. No acute intra- abdominal abnormality. 10/01 -patient continues to have increased heart rate with any mild ambulation, standing up, heart rate up into 160s. Then resolves. However patient has significant discomfort. Plan to further discuss with neurology and also psychiatry. Patient interested in possible EP evaluation. We will discuss this with cardiology further. 3. History of palpitations. Continue metoprolol succinate. 4. History of gastroesophageal reflux disease. Continue Pepcid. 5. Sleep apnea. CPAP at bedtime. 6. History of asthma, currently stable. 7. Deep venous thrombosis prophylaxis. Sequential compression devices. DISPOSITION: Observe in med tele. PT/OT prior to discharge. Social service to help with discharge planning. Admission and Anticipated Discharge Date Admission Date: October 01, 2021 Subjective Patient seen in follow-up of chest pain, muscle aches Patient reports having chest pain/pressure that has been progressively worse over several weeks Reports some back pain, and chest pain, with some radiation to her neck and around the chest She is currently able to speak in full sentences, and she saturating well on room air Denies fevers chills, abdominal pain, nausea vomiting Neurology and cardiology consulted Review of Systems Review of Systems: All systems reviewed & are unremarkable except as noted in Subjective Physical Exam Physical Exam: GENERAL: The patient is morbidly obese F, not in acute distress. HEENT: NC/AT. Pupils equal, round and reactive to light. Oral mucosa moist. NECK: No JVD, no neck masses. CARDIOVASCULAR: S1 and S2 heard. Regular rate and rhythm. No murmur, no gallop. RESPIRATORY: Normal AP diameter. No accessory muscle use. No wheezing, no crackles. ABDOMEN: Soft, bowel sounds present, nontender, no distention. NEURO: Alert and oriented. No facial droop. Speech is clear.Strength 5/5 in all extremities.Moves extremities. EXTREMITIES: No edema, no erythema. Results & Data Results & Data ([facility]) Vital Signs (Past 12 Hours) Vital Signs Temp Pulse Pulse Resp BP Pulse Ox 10/01/21 23:30 36.8 C 86 18 112/72 96 Medications Administered Current Inpatient Medications Acetaminophen (Acetaminophen 325 Mg Tab) 650 mg PO Q4H PRN PRN Reason: Pain or Fever Stop: 10/28/21 00:02 Last Admin: 09/28/21 11:14 Dose: 650 mg Documented by: Diclofenac Sodium (Diclofenac Sod 1% Gel 100 Gm Tube) 2 gm EXT QID [facility] Stop: 10/29/21 12:59 Last Admin: 10/02/21 08:16 Dose: Not Given Documented by: Famotidine (Famotidine 20 Mg Tab) 20 mg PO DAILY [facility] Stop: 10/28/21 08:59 Last Admin: 10/02/21 08:17 Dose: 20 mg Documented by: Ketorolac Tromethamine (Ketorolac 30 Mg/Ml Vial) 30 mg IV Q6H PRN PRN Reason: Pain Stop: 10/05/21 16:43 Lidocaine (L[facility]ocaine 5% 1 Patch) [facility] Stop: 10/30/21 13:14 Last Admin: 10/02/21 08:16 Dose: Not Given Documented by: Loratadine (Loratadine 10 Mg Tab) 10 mg PO HS PRN PRN Reason: Congestion Stop: 10/28/21 00:02 Lorazepam (Lorazepam 0.5 Mg Tab) 0.5 mg PO QID PRN PRN Reason: Anxiety Stop: 10/31/21 12:28 Melatonin (Melatonin 3 Mg Tab) 4.5 mg PO HS PRN PRN Reason: Sleep Last Admin: 10/01/21 23:04 Dose: 4.5 mg Documented by: Meloxicam (Meloxicam 7.5 Mg Tab) 15 mg PO QAM [facility] Stop: 10/29/21 09:14 Last Admin: 10/02/21 08:18 Dose: Not Given Documented by: Meloxicam (Meloxicam 7.5 Mg Tab) 15 mg PO QAM [facility] Stop: 10/30/21 13:14 Last Admin: 10/02/21 08:18 Dose: Not Given Documented by: Metoprolol Succinate (Metoprolol Succ 25mg Ext Rel Tab) 25 mg PO HS [facility] Stop: 10/28/21 20:59 Last Admin: 10/01/21 21:39 Dose: 25 mg Documented by: Miscellaneous (Remove Lidoderm Patch) 1 ea N/A DAILY@2100 [facility] Stop: 10/30/21 20:59 Last Admin: 10/01/21 21:53 Dose: Not Given Documented by: Multivitamins (Multivitamin Tab) 1 tab PO QAM [facility] Stop: 10/28/21 08:59 Last Admin: 10/02/21 08:18 Dose: Not Given Documented by: Nitroglycerin (Nitroglycerin Sl 0.4 Mg/Tab Tab) 0.4 mg SL UD PRN PRN Reason: Chest Pain Stop: 10/28/21 00:02 Last Admin: 09/28/21 11:04 Dose: 0.4 mg Documented by: Ondansetron HCl (Ondansetron Inj 2 Mg/Ml 2 Ml Vial) 4 mg IV Q6H PRN PRN Reason: Nausea Stop: 10/28/21 00:02 Last Admin: 10/01/21 08:43 Dose: 4 mg Documented by: Oxycodone HCl (Oxycodone Hcl Ir 5 Mg Tab (Immediate Release)) 5 mg PO Q6H PRN PRN Reason: Pain Stop: 10/14/21 13:03 Pantoprazole Sodium (Pantoprazole 40 Mg Tab) 40 mg PO QAM [facility] Stop: 10/30/21 13:14 Last Admin: 10/02/21 08:18 Dose: Not Given Documented by: Polyethylene Glycol (Polyethylene (Miralax) 17 Gm Pack) 17 gm PO DAILY PRN PRN Reason: Constipation Stop: 10/28/21 00:02 Triamterene/Hydrochlorothiazide (Triamterene/Hctz 37.5/25mg Tab) 1 tab PO DAILY [facility] Stop: 10/28/21 08:59 Last Admin: 10/02/21 08:17 Dose: 1 tab Documented by:
--- NOTE | 2021-10-02 08:36 | Hospitalist Progress Note ---
Date of Service October 02, 2021 Assessment & Plan (1) Chronic chest pain: Plan: This is a 36-year-old female who presents with ongoing muscle pain, muscle weakness and chest pain, history of intracranial hypertension or pseudotumor cerebri, stopped taking Diamox. 1. Chest pain. The patient is following Cardiology for palpitations. She is on metoprolol.Initial workup is negative. Ordered serial enzymes, echo, and consult Cardiology. Monitor in the med/tele floor. Troponin negative Repeat EKG w/o changes sinus rhythm on tele Echo -consistent with normal examination Cardiology was consulted, and patient was evaluated. No further cardiac testing warranted. 10/02 - patient continues to complain of palpitations, cardiology asked to reevaluate. Domestic Violence Advocate also consulted. 2. History of intracranial hypertension or pseudotumor cerebri. Follow up with Neurology. Was on Diamox, but stopped Diamox because of her muscle pains, thought her muscle pains and weakness causing from it . Has some pressure in the eyes. Will consult neurology while the patient is in the hospital. Per neurology - pt had extensive work-up, pls see Dr. Fay's detailed note. Discussed patient's case in detail with Dr. Fay, her testing, not consistent with pseudotumor cerebri nor POTS Recommend to cont. Dyazide. Can try Cymbalta (however patient hesitant to try SSRIs) Will obtain ESR, CRP, patient may need further rheumatologic work-up as outpatient. Given her presentation, recommend to obtain MRI of cervical and thoracic spine without contrast. This study was obtained as below Patient also may undergo skin biopsy for small fiber neuropathy as well as standard muscle biopsy. These studies would to be done as outpatient. MRI cervical spine IMPRESSION: Mild right neural foraminal stenosis is seen. MRI thoracic spine IMPRESSION: 1. Motion degraded exam. No acute fracture or bone marrow edema. 2. Mild discogenic degeneration at T10-T11 and T11-T12 as above. 3. No high-grade central canal or neural foraminal narrowing. 4. Normal signal of the thoracic spinal cord. 10/02 -patient seen by neurology, Dr. Braxton, triamterene/HCTZ stopped. Plan for outpatient follow-up, may have underlying small fiber neuropathy, consider outpatient skin punch biopsy to assess this issue. Patient also continues to have sternal pain, and epigastric/upper abdominal pain. I discussed with radiology, to review previous images and to recommend further imaging to evaluate this as previous studies not explaining her symptoms. Patient is also allergic to CT dye. Recommend obtaining CT chest without contrast to further evaluate sternal and chest ulcer, compare images from June. Recommend abdominal MRI with contrast to evaluate vasculature, rule out SMA syndrome. Of note, patient reports weight loss without trying to lose weight. CT chest w/o -unremarkable MRI abdomen, with contrast - 1. Normal CTA of the abdomen. 2. No acute intra- abdominal abnormality. 10/01 -patient continues to have increased heart rate with any mild ambulation, standing up, heart rate up into 160s. Then resolves. However patient has significant discomfort. Plan to further discuss with neurology and also psychiatry. Patient interested in possible EP evaluation. We will discuss this with cardiology further. 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 Recommend mirtazapine nightly, physical therapy, psyc hotherapy, frequent reassurance about her medical condition, frequent PCP follow-ups. 3. History of palpitations. Continue metoprolol succinate. 4. History of gastroesophageal reflux disease. Continue Pepcid. 5. Sleep apnea. CPAP at bedtime. 6. History of asthma, currently stable. 7. Deep venous thrombosis prophylaxis. Sequential compression devices. DISPOSITION: Observe in med tele. PT/OT prior to discharge. Social service to help with discharge planning. Admission and Anticipated Discharge Date Admission Date: October 01, 2021 Subjective Patient seen in follow-up of chest pain, muscle aches Patient reports having chest pain/pressure that has been progressively worse over several weeks Reports some back pain, and chest pain, with some radiation to her neck and around the chest She is currently able to speak in full sentences, and she saturating well on room air Denies fevers chills, abdominal pain, nausea vomiting Neurology and cardiology consulted Review of Systems Review of Systems: All systems reviewed & are unremarkable except as noted in Subjective Physical Exam Physical Exam: GENERAL: The patient is morbidly obese F, not in acute distress. HEENT: NC/AT. Pupils equal, round and reactive to light. Oral mucosa moist. NECK: No JVD, no neck masses. CARDIOVASCULAR: S1 and S2 heard. Regular rate and rhythm. No murmur, no gallop. RESPIRATORY: Normal AP diameter. No accessory muscle use. No wheezing, no crackles. ABDOMEN: Soft, bowel sounds present, nontender, no distention. NEURO: Alert and oriented. No facial droop. Speech is clear.Strength 5/5 in all extremities.Moves extremities. EXTREMITIES: No edema, no erythema. Results & Data Results & Data ([facility]) Vital Signs (Past 12 Hours) Vital Signs Temp Pulse Pulse Resp BP Pulse Ox 10/02/21 07:30 36.7 C 74 18 101/69 98 10/02/21 03:13 36.8 C 89 16 112/73 97 10/02/21 00:00 84 10/01/21 23:30 36.8 C 86 18 112/72 96 Medications Administered Current Inpatient Medications Acetaminophen (Acetaminophen 325 Mg Tab) 650 mg PO Q4H PRN PRN Reason: Pain or Fever Stop: 10/28/21 00:02 Last Admin: 09/28/21 11:14 Dose: 650 mg Documented by: Diclofenac Sodium (Diclofenac Sod 1% Gel 100 Gm Tube) 2 gm EXT QID [facility] Stop: 10/29/21 12:59 Last Admin: 10/02/21 08:16 Dose: Not Given Documented by: Famotidine (Famotidine 20 Mg Tab) 20 mg PO DAILY [facility] Stop: 10/28/21 08:59 Last Admin: 10/02/21 08:17 Dose: 20 mg Documented by: Ketorolac Tromethamine (Ketorolac 30 Mg/Ml Vial) 30 mg IV Q6H PRN PRN Reason: Pain Stop: 10/05/21 16:43 Lidocaine (L[facility]ocaine 5% 1 Patch) [facility] Stop: 10/30/21 13:14 Last Admin: 10/02/21 08:16 Dose: Not Given Documented by: Loratadine (Loratadine 10 Mg Tab) 10 mg PO HS PRN PRN Reason: Congestion Stop: 10/28/21 00:02 Lorazepam (Lorazepam 0.5 Mg Tab) 0.5 mg PO QID PRN PRN Reason: Anxiety Stop: 10/31/21 12:28 Melatonin (Melatonin 3 Mg Tab) 4.5 mg PO HS PRN PRN Reason: Sleep Last Admin: 10/01/21 23:04 Dose: 4.5 mg Documented by: Meloxicam (Meloxicam 7.5 Mg Tab) 15 mg PO QAM [facility] Stop: 10/29/21 09:14 Last Admin: 10/02/21 08:18 Dose: Not Given Documented by: Meloxicam (Meloxicam 7.5 Mg Tab) 15 mg PO QAM [facility] Stop: 10/30/21 13:14 Last Admin: 10/02/21 08:18 Dose: Not Given Documented by: Metoprolol Succinate (Metoprolol Succ 25mg Ext Rel Tab) 25 mg PO HS [facility] Stop: 10/28/21 20:59 Last Admin: 10/01/21 21:39 Dose: 25 mg Documented by: Miscellaneous (Remove Lidoderm Patch) 1 ea N/A DAILY@2100 [facility] Stop: 10/30/21 20:59 Last Admin: 10/01/21 21:53 Dose: Not Given Documented by: Multivitamins (Multivitamin Tab) 1 tab PO QAM [facility] Stop: 10/28/21 08:59 Last Admin: 10/02/21 08:18 Dose: Not Given Documented by: Nitroglycerin (Nitroglycerin Sl 0.4 Mg/Tab Tab) 0.4 mg SL UD PRN PRN Reason: Chest Pain Stop: 10/28/21 00:02 Last Admin: 09/28/21 11:04 Dose: 0.4 mg Documented by: Ondansetron HCl (Ondansetron Inj 2 Mg/Ml 2 Ml Vial) 4 mg IV Q6H PRN PRN Reason: Nausea Stop: 10/28/21 00:02 Last Admin: 10/01/21 08:43 Dose: 4 mg Documented by: Oxycodone HCl (Oxycodone Hcl Ir 5 Mg Tab (Immediate Release)) 5 mg PO Q6H PRN PRN Reason: Pain Stop: 10/14/21 13:03 Pantoprazole Sodium (Pantoprazole 40 Mg Tab) [facility] [place] Stop: 10/30/21 13:14 Last Admin: 10/02/21 08:18 Dose: Not Given Documented by: Polyethylene Glycol (Polyethylene (Miralax) 17 Gm Pack) 17 gm PO DAILY PRN PRN Reason: Constipation Stop: 10/28/21 00:02 Triamterene/Hydrochlorothiazide (Triamterene/Hctz 37.5/25mg Tab) 1 tab PO DAILY [facility] Stop: 10/28/21 08:59 Last Admin: 10/02/21 08:17 Dose: 1 tab Documented by:
--- NOTE | 2021-10-02 10:25 | Neurology Progress Note ---
Date of Service October 02, 2021 Assessment & Plan (1) Small fiber neuropathy: (2) Persistent postural-perceptual dizziness: (3) Idiopathic intracranial hypertension: Plan: This patient probably does not have idiopathic intracranial hypertension. Her CSF opening pressure was top normal and she does not have papilledema with a recent ophthalmology evaluation. Does not complain of headache currently. No visual field loss. Did not tolerate empiric trial of Diamox. Currently on triamterene hydrochlorothiazide, would discontinue this medication. May have an underlying small fiber neuropathy. Would consider outpatient skin punch biopsy for further assessment of this issue. Persistent postural perceptual dizziness. Poorly understood clinical entity, suggested by previous neurologist at [facility]. No specific treatment. An antidepressant medication could be considered. Psychiatry has been consulted. No further immediate recommendations from a neurologic standpoint during patient's current hospitalization. She may follow-up as an outpatient. Results of previous ambulatory EEG are still pending. Admission and Anticipated Discharge Date Admission Date: October 01, 2021 Subjective Follow-up for possible mild idiopathic intracranial hypertension The patient denies headache or vision loss. She had an unremarkable outpatient ophthalmology assessment recently, no papilledema. She has a history of top normal opening pressure with lumbar puncture completed September 06, 2021. She had a fairly unremarkable brain MRI September 05, 2021 as well as a normal MRV of the head. MR angiography of the head and neck completed September 09, 2021 normal. MRI of the cervical and thoracic spine completed September 29, 2021 negative for any significant pathology. I had previously prescribed her Diamox to address suspected borderline idiopathic intracranial hypertension, although again, a follow-up outpatient ophthalmology assessment was unrevealing, no papilledema. She did not tolerate Diamox, however, and this medication was discontinued in favor of a trial of triamterene hydrochlorothiazide. In any event, the benefit of this medication is probably marginal at best and her preliminary diagnosis of idiopathic intracranial hypertension has been probably excluded at this point in time. [facility] for refractory chest pain and associated palpitations. Thorough evaluation has been unrevealing. She was evaluated last week during this current hospitalization by Dr. Fay. She is complained of headaches previously although this issue is currently resolved. Possibility of migraine component considered. History of persistent perceptual postural dizziness noted. Negative evaluations for postural orthostatic tachycardia syndrome noted. History of fibromyalgia noted. Possibility of small fiber peripheral neuropathy has been noted previously. Psychiatry has been consulted during this current hospitalization. Results & Data ([facility]) Vital Signs (Past 12 Hours) Vital Signs Temp Pulse Pulse Resp BP Pulse Ox 10/02/21 07:30 36.7 C 74 18 101/69 98 10/02/21 03:13 36.8 C 89 16 112/73 97 10/02/21 00:00 84 10/01/21 23:30 36.8 C 86 18 112/72 96 Exam (Neuro) Eyes: PERRL and EOM intact bilaterally; no papilledema Cardiovascular: Heart Sounds: normal S1 and normal S2 Vessels: normal carotid upstroke; no carotid bruit Neurologic: Oriented to:: Person, Place and Time Attention: Span Intact and Concentration Intact Speech Fluency: negative Dysarthria or Dysfluency Fund of Knowledge: Current Events, Past History and Vocabulary Cranial Nerves: Normal II, III, IV, , V, VII, VIII, IX, X, XI and XII Motor Str ength: Normal Lower Extremities and Normal Upper Extremities Muscle Bulk/Involuntary Movements: No Involuntary Movements Sensation: Light Touch Intact and Pain/Temperature Intact Coordination: Normal; negative Limited Balance or Finger-Nose Abnormal Deep Tendon Reflexes: Rt Biceps: 2+, Lt Biceps: 2+, Rt Patellar: 2+ and Lt Patellar: 2+ Gait: Normal Station and Gait Coding Level of Care Code 93417 Subseq Hosp Care Lvl 2 Diagnoses Small fiber neuropathy G62.9 Persistent postural-perceptual dizziness R42 Idiopathic intracranial hypertension G93.2
--- NOTE | 2021-10-02 14:21 | Electrocardiogram Report ---
Test Reason : Blood Pressure : / mmHG Vent. Rate : 079 BPM Atrial Rate : 079 BPM P-R Int : 160 ms QRS Dur : 082 ms QT Int : 394 ms P-R-T Axes : 005 -08 003 degrees QTc Int : 451 ms Normal sinus rhythm Moderate voltage criteria for LVH, may be normal variant Abnormal ECG When compared with ECG of 29-SEP-2021 05:58, No significant change was found Confirmed by Paulino Enamorado ([id number]) on 10/02/2021 2:20:56 PM Referred By: Buddy Braxton Confirmed By:Jose Enamorado
--- NOTE | 2021-10-02 14:21 | Electrocardiogram Report ---
Test Reason : Blood Pressure : / mmHG Vent. Rate : 076 BPM Atrial Rate : 076 BPM P-R Int : 132 ms QRS Dur : 080 ms QT Int : 394 ms P-R-T Axes : 252 -10 -02 degrees QTc Int : 443 ms Unusual P axis and short CO, probable junctional tachycardia Voltage criteria for left ventricular hypertrophy Inferior infarct (cited on or before 02-OCT-2021) Abnormal ECG When compared with ECG of 02-OCT-2021 13:17, (unconfirmed) Junctional rhythm has replaced Sinus rhythm Confirmed by Paulino Enamorado ([id number]) on 10/02/2021 2:21:19 PM Referred By: Buddy Braxton Confirmed By:Jose Enamorado
--- NOTE | 2021-10-02 14:53 | Communication Note ---
Date of Service: October 02, 2021 At the request of the hospitalist service as well as the patient, I reviewed the medical record including the record from our clinic as well as saw the patient and had a lengthy discussion. The psychiatry consult is appreciated. The patient has a long history of of complaints of atypical chest pain and heart palpitations. She had an extensive work-up with a associate genetics professor in [place]. She has also been seen through our clinic and a 2-week monitor obtained for complaints of palpitations revealed numerous entries by the patient all showing a sinus mechanism. When I went in to speak with the patient, nursing indicated that she was taking photos of her telemetry and showing it to the nursing staff and requesting an EKG. She somehow unlocked her telemetry and was reviewing strips taking pictures with her Iphone. As a result, nursing staff obtain 2 EKGs. I reviewed these EKG's, they do show a low atrial rhythm which is likely due to her age with high vagal tone and the beta jairo. Otherwise, heart rates are appropriate and not the cause of her symptoms. I also reviewed her entire telemetry for the past 24 hours with the senior quality technician and despite the patient having episodes of palpitations, she has been in a sinus mechanism with appropriate heart rates. I told the patient that I didn't feel any additional testing would be helpful. I considered the possibility of an implanted loop recorder but after reviewing everything, including her telemetry since admission, I thought it would be low yield. I then reconsidered and offered the patient a second opinion from the [facility] as they have EP doc's currently in the hospital. She accepted and hopefully this can be helpful, even if nothing additional needs to be done. I attempted to contact her on 2 occasions and it went immediately to voicemail.
--- NOTE | 2021-10-02 17:48 | Cardiology Consultation ---
Date of Consultation October 02, 2021 Assessment & Plan (1) Palpitations: (2) Sinus tachycardia: 1. Palpitations: She appears have 2 distinct symptoms. One is a general sense of activity intolerance and mild dizziness possibly associated with a resting tachycardia. She has had extensive monitoring over the years. Her monitoring does suggest an element of sinus tachycardia. Occasionally people have exaggerated heart rates the can produce some symptoms of exertional intolerance. 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 She is on beta jairo therapy which is the recommended treatment. She continues to have symptoms. One option for treatment would be the use of ivabradine. The other palpitation she describes as a sense of skipped beat. She tends to feel some pulse a shins in her neck and wants to cough. It is possible but certainly not definite that occasional episodes junctional tachycardia competing with her sinus rhythm produces the symptoms. However, there is no particular treatment for this malady. I did not recommend any additional testing. I attempted to impress upon the patient that while these conditions may produce some symptoms that are certainly not dangerous she has a structurally normal heart and her heart tests to date have all been quite good. Being otherwise healthy woman puts her in good position with a low risk of complication. A trial of ivabradine could be considered, otherwise no additional medical therapy is likely to be helpful. I do not believe any additional cardiac testing is helpful. 2. Chest pain: Noncardiac. Longstanding in nature. I attempted to impress upon her that this is not related to coronary ischemia. She is not at risk of a heart attack. Again, all of her testing in this regard has been quite favorable. History of Present Illness Reason for Consultation: Palpitations Requesting Physician: Sofie Attending Physician: Jed Banuelos MD History of Present Illness The patient is a 36-year-old woman without a known history of cardiac disease who has been experiencing symptoms chest pain and palpitations for many years. She was admitted to the hospital recently due to worsening of the symptoms. She states that her symptoms of chest pain and palpitations wax and wane in severity and frequency. Recently she has been having nearly constant left chest discomfort. She also suffers from frequent palpitations in elevated heart rates. She states that even at rest she has some sense of dizziness and lightheadedness. With activity the symptoms often worsen and she feels a sense of tachycardia. Her palpitations also involve a sense of a skipped beat. All these palpitations do produce a sense of dizziness, she has never had true syncope. Her symptoms are are not suggestive of vertigo. They are not exclusively positional. Due to the progressive nature of her symptoms she has had difficulty completing even normal tasks at home and requires assistance for routine housework and other chores. She did contract COVID-19 in June. She states that she recovered uneventfully but approximately 1 month later she began to have worsening of the symptoms. Allergies Allergy/AdvReac Type Severity Reaction Status Date / Time amoxicillin Allergy Severe ANAPHYLAXIS Verified 09/27/21 21:15 clavulanic acid Allergy Severe ANAPHYLAXIS Verified 09/27/21 21:15 Iodinated Contrast Media Allergy Severe Hives, Verified 09/27/21 21:15 tongue swelling doxycycline Allergy Intermediate Rash Verified 09/27/21 21:15 egg Allergy Intermediate Hives Verified 09/27/21 21:15 fish derived Allergy Intermediate Hives Verified 09/27/21 21:15 metronidazole Allergy Intermediate rash Verified 09/27/21 21:15 sulfamethoxazole Allergy Intermediate tongue Verified 09/27/21 21:15 [From Bactrim] swelling trimethoprim [From Bactrim] Allergy Intermediate tongue Verified 09/27/21 21:15 swelling coffee (Coffea arabica) Allergy Unknown per Verified 09/27/21 21:15 allergy testing Penicillins Allergy Unknown per Verified 09/24/21 16:29 allergy testing Home Medications Medication Instructions Recorded Confirmed Type multivitamin 1 tab PO QAM 03/27/18 09/27/21 History loratadine 10 mg tablet (Claritin) 10 mg PO HS PRN 03/21/20 09/27/21 History metoprolol succinate 25 mg 25 mg PO HS 08/28/21 09/27/21 History tablet,extended release 24 hr ergocalciferol (vitamin D2) 1,250 1,250 mcg PO WK 08/29/21 09/27/21 History mcg (50,000 unit) capsule ketoconazole 2 % shampoo 1 applic TOPICAL 2XWK 09/24/21 09/27/21 History famotidine 20 mg tablet (Pepcid) 20 mg PO DAILY 09/27/21 09/27/21 History melatonin 5 mg tablet 5 mg PO HS PRN 09/27/21 09/27/21 History triamterene 75 1 tab PO DAILY #30 tab 09/27/21 09/27/21 Rx mg-hydrochlorothiazide 50 mg tablet (Maxzide) ivabradine 5 mg tablet 5 mg PO BID 14 Days #28 tab 10/03/21 Rx Patient History Medical History Abnormal EEG Ankylosing spondylitis Anxiety and depression Change in vision Chest pain Chest pain COVID-19 Degenerative disc disease Dizziness DVT (deep venous thrombosis) Eustachian tube dysfunction Fatigue GERD (gastroesophageal reflux disease) Headache Heart palpitations High cholesterol History of bradycardia History of bulimia History of pre-eclampsia Insomnia Iron deficiency anemia Migraine Morbid obesity with BMI of 40.0-44.9, adult Seasonal allergies Thoracic disc disease Vitamin B12 deficiency Vitamin D deficiency Surgical History History of cardiac cath 06/2015 @ [facility] [place]--d/t chest pain, normal no stents History of cholecystectomy History of esophagogastroduodenoscopy (EGD) History of wisdom tooth extraction Family History Father Hypertension Mother Diabetes Grandfather (Maternal) Diabetes Coronary heart disease Myocardial infarction Congestive heart failure Colorectal cancer Grandfather (Paternal) Diabetes Coronary heart disease Myocardial infarction, Onset Age: 50 Grandmother (Paternal) Pulmonary emphysema Sick sinus syndrome Diabetes Pacemaker Grandmother (Maternal) Family history of diabetes mellitus Aunt Pulmonary emphysema Family/Other Myocardial infarction, Onset Age: 37 Coronary heart disease Uncle Stroke Other Asthma Lymphoma No family history of adverse response to anesthesia Denies family history of Ovarian cancer Prostate cancer Breast cancer Social History Smoking Status: Former smoker Tobacco Type: Cigarettes Second Hand Exposure: No; Hx Alcohol Use: No Hx Substance Use: No Preferred Language: [place] Communication Ability: Effective Communication Tools: Other Visual Impairment: No Limitations Hearing Ability: Normal Candy Maker Required: No Beliefs That Will Affect Care: None marital status: Current Living Situation: Spouse and Family Current Living Situation Comment: Lives with and daughter current occupational status: unemployed How many Children do You have: 1 Other Information That Helps Us Care for You: No Feels Safe at Home: Yes Safety Concerns: Feels Safe At This Time Childhood Exposure to Second-Hand Smoke: Yes caffeine: No during the past year weight has: remained stable Dental Care, Regularly: Yes Physical Activity Frequency: 5-6 Times per Week Seatbelt Use: never Sunscreen Use: Yes Assistive Devices: Wheelchair Review of Systems Review of Systems: Per HPI. Her chest pain appears to be fairly constant in nature. Certainly the episodes themselves are extended in duration. Appears to involve the left chest area. It is nonexertional. Very similar in character over many years. Physical Exam Physical Exam: She is alert and oriented x3. Mood affect appear normal. She answered all questions appropriately. HEENT: Sclerae are anicteric. Pupils are equal and reactive to light and accommodation. Extraocular movements were intact. Neuro: Cranial nerves intact Lungs: Lungs are clear to auscultation bilaterally. There are no rales wheezes or rhonchi. She has normal respiratory effort without use of accessory muscles. There is normal pulmonary excursion. Cardiac: The rhythm was regular. S1 and S2 were normal. There are no murmurs on examination. The PMI was not markedly displaced on palpation. Abdomen: Obese Extremities: Patient has bilateral radial pulses that are equal in intensity. There is no evidence cyanosis or clubbing. There was no evidence of significant peripheral edema bilaterally. Skin: There are no rashes noted on examination today. Results & Data ([facility]) Vital Signs (Past 12 Hours) Vital Signs Temp Pulse Pulse Resp BP Pulse Ox 10/02/21 15:00 95 H 10/02/21 14:30 36.9 C 86 18 114/80 95 10/02/21 11:50 37.0 C 88 18 104/83 95 10/02/21 11:20 80 10/02/21 07:30 36.7 C 74 18 101/69 98 10/02/21 07:00 77 Diagnostic Findings Echocardiogram 09/28/2021: Normal. Normal LV systolic function, chamber dimensions. No significant valvular heart disease. Echocardiogram performed 07/28/2021: Normal LV systolic function. No significant valvular heart disease. No change from prior. Echocardiogram performed 07/05/2021: Normal LV systolic function. No significant valvular heart disease. No change from prior. Echocardiogram performed 11/19/2020: Normal LV systolic function. No significant valvular heart disease. Normal echo. Head-up tilt table test with nitroglycerin infusion performed 08/10/2021: No abnormal findings with the exception of an elevated resting heart rate. Head-up tilt table test performed 04/11/2021: Normal. Event monitor performed 12/29/2020: Symptomatic sinus tachycardia. Event monitor performed 09/07/2020: Symptomatic sinus tachycardia PG Care Time/CCT Total # of Minutes Spent Total Time Spent with Patient: Total time spent is greater than 50% in coordination of care (as documented) at patient's floor/unit and/or counseling patient: Coding Level of Care Code 80239 Inpt Consult Level 4 Diagnoses Palpitations R00.2 Sinus tachycardia R00.0
[2021-10-02] MEDS: METOPROLOL SUCC 25MG EXT REL TAB PO SCH (20:08)
[2021-10-02] MEDS: MIRTAZAPINE TAB 15 MG TAB PO SCH ×2 (20:08→20:40)
[2021-10-03] MEDS: FAMOTIDINE 20 MG TAB PO SCH (08:33)
[2021-10-03] MEDS: LIDOCAINE 5% 1 PATCH TD SCH (08:34)
[2021-10-03] MEDS: PANTOprazole 40 MG TAB PO SCH (08:34)
[2021-10-03] MEDS: MULTIVITAMIN TAB PO SCH (08:34)
[2021-10-03] MEDS: MELOXICAM 7.5 MG TAB PO SCH ×2 (08:34)
[2021-10-03] MEDS: DICLOFENAC SOD 1% GEL 100 GM TUBE EXT SCH ×4 (08:34→20:33)
--- NOTE | 2021-10-03 08:46 | Hospitalist Progress Note ---
Date of Service October 03, 2021 Assessment & Plan (1) Chronic chest pain: Plan: This is a 36-year-old female who presents with ongoing muscle pain, muscle weakness and chest pain, history of intracranial hypertension or pseudotumor cerebri, stopped taking Diamox. 1. Chest pain. The patient is following Cardiology for palpitations. She is on metoprolol.Initial workup is negative. Ordered serial enzymes, echo, and consult Cardiology. Monitor in the med/tele floor. Troponin negative Repeat EKG w/o changes sinus rhythm on tele Echo -consistent with normal examination Cardiology was consulted, and patient was evaluated. No further cardiac testing warranted. 10/02 - patient continues to complain of palpitations, cardiology asked to reevaluate. Shelving Supervisor also consulted. 2. History of intracranial hypertension or pseudotumor cerebri. Follow up with Neurology. Was on Diamox, but stopped Diamox because of her muscle pains, thought her muscle pains and weakness causing from it . Has some pressure in the eyes. Will consult neurology while the patient is in the hospital. Per neurology - pt had extensive work-up, pls see Dr. Fay's detailed note. Discussed patient's case in detail with Dr. Fay, her testing, not consistent with pseudotumor cerebri nor POTS Recommend to cont. Dyazide. Can try Cymbalta (however patient hesitant to try SSRIs) Will obtain ESR, CRP, patient may need further rheumatologic work-up as outpatient. Given her presentation, recommend to obtain MRI of cervical and thoracic spine without contrast. This study was obtained as below Patient also may undergo skin biopsy for small fiber neuropathy as well as standard muscle biopsy. These studies would to be done as outpatient. MRI cervical spine IMPRESSION: Mild right neural foraminal stenosis is seen. MRI thoracic spine IMPRESSION: 1. Motion degraded exam. No acute fracture or bone marrow edema. 2. Mild discogenic degeneration at T10-T11 and T11-T12 as above. 3. No high-grade central canal or neural foraminal narrowing. 4. Normal signal of the thoracic spinal cord. 10/02 -patient seen by neurology, Dr. Braxton, triamterene/HCTZ stopped. Plan for outpatient follow-up, may have underlying small fiber neuropathy, consider outpatient skin punch biopsy to assess this issue. Patient also continues to have sternal pain, and epigastric/upper abdominal pain. I discussed with radiology, to review previous images and to recommend further imaging to evaluate this as previous studies not explaining her symptoms. Patient is also allergic to CT dye. Recommend obtaining CT chest without contrast to further evaluate sternal and chest ulcer, compare images from June. Recommend abdominal MRI with contrast to evaluate vasculature, rule out SMA syndrome. Of note, patient reports weight loss without trying to lose weight. CT chest w/o -unremarkable MRI abdomen, with contrast - 1. Normal CTA of the abdomen. 2. No acute intra- abdominal abnormality. 10/01 -patient continues to have increased heart rate with any mild ambulation, standing up, heart rate up into 160s. Then resolves. However patient has significant discomfort. Plan to further discuss with neurology and also psychiatry. Patient interested in possible EP evaluation. We will discuss this with cardiology further. 10/02 -patient seen by director of investigations, Dr. Enamorado, plan to start ivabradine. Prescription sent to patient's pharmacy, and paperwork submitted for prior auth orization. 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 Recommend mirtazapine nightly, physical therapy, psychother apy, frequent reassurance about her medical condition, frequent PCP follow-ups. Patient does not wish to try mirtazapine. 3. History of palpitations. Continue metoprolol succinate. 4. History of gastroesophageal reflux disease. Continue Pepcid. 5. Sleep apnea. CPAP at bedtime. 6. History of asthma, currently stable. 7. Deep venous thrombosis prophylaxis. Sequential compression devices. DISPOSITION: Observe in med tele. PT/OT prior to discharge. Social service to help with discharge planning. Admission and Anticipated Discharge Date Admission Date: October 01, 2021 Subjective Patient seen in follow-up of chest pain, muscle aches Patient reports having chest pain/pressure that has been progressively worse over several weeks Reports some back pain, and chest pain, with some radiation to her neck and around the chest She is currently able to speak in full sentences, and she saturating well on room air Denies fevers chills, abdominal pain, nausea vomiting Neurology and cardiology consulted Review of Systems Review of Systems: All systems reviewed & are unremarkable except as noted in Subjective Physical Exam Physical Exam: GENERAL: The patient is morbidly obese F, not in acute distress. HEENT: NC/AT. EOMI. Pupils equal, round and reactive to light. Oral mucosa m oist. NECK: No JVD, no neck masses. CARDIOVASCULAR: S1 and S2 heard. Regular rate and rhythm. No murmur, no gallop. RESPIRATORY: Normal AP diameter. No accessory muscle use. No wheezing, no aircraft magneto mechanic ckles. ABDOMEN: Soft, bowel sounds present, nontender, no distention. NEURO: Alert and oriented. No facial droop. Speech is clear.Strength 5/5 in all extremities.Moves extremities. EXTREMITIES: No edema, no erythema. Results & Data Results & Data ([facility]) Vital Signs (Past 12 Hours) Vital Signs Temp Pulse Pulse Resp BP Pulse Ox 10/03/21 06:45 36.6 C 78 20 98/66 L 94 10/03/21 03:38 36.6 C 79 20 134/77 97 10/03/21 01:09 67 10/02/21 23:01 36.8 C 77 20 96/64 L 100 Medications Administered Current Inpatient Medications Acetaminophen (Acetaminophen 325 Mg Tab) 650 mg PO Q4H PRN PRN Reason: Pain or Fever Stop: 10/28/21 00:02 Last Admin: 09/28/21 11:14 Dose: 650 mg Documented by: Diclofenac Sodium (Diclofenac Sod 1% Gel 100 Gm Tube) 2 gm EXT QID [facility] Stop: 10/29/21 12:59 Last Admin: 10/03/21 08:34 Dose: Not Given Documented by: Famotidine (Famotidine 20 Mg Tab) 20 mg PO DAILY [facility] Stop: 10/28/21 08:59 Last Admin: 10/03/21 08:33 Dose: 20 mg Documented by: Ketorolac Tromethamine (Ketorolac 30 Mg/Ml Vial) 30 mg IV Q6H PRN PRN Reason: Pain Stop: 10/05/21 16:43 Last Admin: 10/03/21 08:41 Dose: 30 mg Documented by: Lidocaine (Lidocaine 5% 1 Patch) 1 patch TD QAM [facility] Stop: 10/30/21 13:14 Last Admin: 10/03/21 08:34 Dose: Not Given Documented by: Loratadine (Loratadine 10 Mg Tab) 10 mg PO HS PRN PRN Reason: Congestion Stop: 10/28/21 00:02 Lorazepam (Lorazepam 0.5 Mg Tab) 0.5 mg PO QID PRN PRN Reason: Anxiety Stop: 10/31/21 12:28 Melatonin (Melatonin 3 Mg Tab) 4.5 mg PO HS PRN PRN Reason: Sleep Last Admin: 10/01/21 23:04 Dose: 4.5 mg Documented by: Meloxicam (Meloxicam 7.5 Mg Tab) 15 mg PO QAM [facility] Stop: 10/29/21 09:14 Last Admin: 10/03/21 08:34 Dose: Not Given Documented by: Meloxicam (Meloxicam 7.5 Mg Tab) 15 mg PO [facility] Stop: 10/30/21 13:14 Last Admin: 10/03/21 08:34 Dose: Not Given Documented by: Metoprolol Succinate (Metoprolol Succ 25mg Ext Rel Tab) [address] [facility] Stop: 10/28/21 20:59 Last Admin: 10/02/21 20:08 Dose: 25 mg Documented by: Mirtazapine (Mirtazapine Tab 15 Mg Tab) 7.[address] [facility] Stop: 11/01/21 20:59 Last Admin: 10/02/21 20:40 Dose: Not Given Documented by: Miscellaneous (Remove Lidoderm Patch) 1 ea N/A DAILY@2100 [facility] Stop: 10/30/21 20:59 Last Admin: 10/02/21 20:09 Dose: 1 ea Documented by: [facility]ivit[facility] ([facility]amin Tab) [facility] [place]: 10/28/21 08:59 Last Admin: 10/03/21 08:34 Dose: Not Given Documented by: Nitroglycerin (Nitroglycerin Sl 0.4 Mg/Tab Tab) 0.4 mg SL UD PRN PRN Reason: Chest Pain Stop: 10/28/21 00:02 Last Admin: 09/28/21 11:04 Dose: 0.4 mg Documented by: Ondansetron HCl (Ondansetron Inj 2 Mg/Ml 2 Ml Vial) 4 mg IV Q6H PRN PRN Reason: Nausea Stop: 10/28/21 00:02 Last Admin: 10/01/21 08:43 Dose: 4 mg Documented by: Oxycodone HCl (Oxycodone Hcl Ir 5 Mg Tab (Immediate Release)) 5 mg PO Q6H PRN PRN Reason: Pain Stop: 10/14/21 13:03 Pantoprazole Sodium (Pantoprazole 40 Mg Tab) 40 mg PO QAM [facility] Stop: 10/30/21 13:14 Last Admin: 10/03/21 08:34 Dose: Not Given Documented by: Polyethylene Glycol (Polyethylene (Miralax) 17 Gm Pack) 17 gm PO DAILY PRN PRN Reason: Constipation Stop: 10/28/21 00:02
--- NOTE | 2021-10-03 10:25 | Communication Note ---
Date of Service: October 03, 2021 Brief Psych Note: Per chart documentation patient declined mirtazapine 7.5 mg qhs. No further psychiatry recommendations (see consult note from 10/02/21 for previous recommendations). Please don't hesitate to contact us if patient has further questions/concerns or desires to speak with us.
[2021-10-03] MEDS ORDERED: hydrOXYzine HCl 25 MG TAB PO PRN (18:30)
[2021-10-03] MEDS ORDERED: diphenhydrAMINE Capsule 25 MG CAP PO PRN (18:31)
[2021-10-03] MEDS: METOPROLOL SUCC 25MG EXT REL TAB PO SCH (20:34)
[2021-10-03] MEDS: MIRTAZAPINE TAB 15 MG TAB PO SCH (20:34)
[2021-10-03] MEDS: IVABRADINE 5 MG PO SCH (20:40)
[2021-10-04] MEDS: PANTOprazole 40 MG TAB PO SCH (09:09)
[2021-10-04] MEDS: DICLOFENAC SOD 1% GEL 100 GM TUBE EXT SCH (09:09)
[2021-10-04] MEDS: MELOXICAM 7.5 MG TAB PO SCH (09:09)
[2021-10-04] MEDS: MULTIVITAMIN TAB PO SCH (09:09)
[2021-10-04] MEDS: LIDOCAINE 5% 1 PATCH TD SCH (09:09)
[2021-10-04] MEDS: FAMOTIDINE 20 MG TAB PO SCH (09:10)
[2021-10-04] MEDS: IVABRADINE 5 MG PO SCH (09:10)
--- NOTE | 2021-10-04 09:32 | Hospitalist Progress Note ---
Date of Service October 04, 2021 Assessment & Plan (1) Chronic chest pain: Plan: This is a 36-year-old female who presents with ongoing muscle pain, muscle weakness and chest pain, history of intracranial hypertension or pseudotumor cerebri, stopped taking Diamox. 1. Chest pain.Palpitations. The patient is following Cardiology for palpitations. She is on metoprolol.Initial workup is negative. Ordered serial enzymes, echo, and consult Cardiology. Monitor in the med/tele floor. Troponin negative Repeat EKG w/o changes sinus rhythm on tele Echo -consistent with normal examination Cardiology was consulted, and patient was evaluated. No further cardiac testing warranted. 10/02 - patient continues to complain of palpitations, cardiology asked to re- evaluate. Ophthalmic Pathologist also consulted. Patient seen by sounding device operator, Dr. Enamorado, plan to start ivabradine. Prescription sent to patient's pharmacy, and paperwork submitted for prior authorization. 10/03 - provided with sample of the medication, by the director loan, which should last the patient 1 to 2 weeks. 2. History of intracranial hypertension or pseudotumor cerebri. Follow up with Neurology. Was on Diamox, but stopped Diamox because of her muscle pains, thought her muscle pains and weakness causing from it . Has some pressure in the eyes. Will consult neurology while the patient is in the hospital. Per neurology - pt had extensive work-up, pls see Dr. Fay's detailed note. Discussed patient's case in detail with Dr. Fay, her testing, not consistent with pseudotumor cerebri nor POTS Recommend to cont. Dyazide. Can try Cymbalta (however patient hesitant to try SSRIs) Will obtain ESR, CRP, patient may need further rheumatologic work-up as outpatient. Given her presentation, recommend to obtain MRI of cervical and thoracic spine without contrast. This study was obtained as below Patient also may undergo skin biopsy for small fiber neuropathy as well as standard muscle biopsy. These studies would to be done as outpatient. MRI cervical spine IMPRESSION: Mild right neural foraminal stenosis is seen. MRI thoracic spine IMPRESSION: 1. Motion degraded exam. No acute fracture or bone marrow edema. 2. Mild discogenic degeneration at T10-T11 and T11-T12 as above. 3. No high-grade central canal or neural foraminal narrowing. 4. Normal signal of the thoracic spinal cord. Patient also continues to have sternal pain, and epigastric/upper abdominal pain. I discussed with radiology, to review previous images and to recommend further imaging to evaluate this as previous studies not explaining her symptoms. Patient is also allergic to CT dye. Recommend obtaining CT chest without contrast to further evaluate sternal and chest ulcer, compare images from June. Recommend abdominal MRI with contrast to evaluate vasculature, rule out SMA syndrome. Of note, patient reports weight loss without trying to lose weight. CT chest w/o -unremarkable MRI abdomen, with contrast - 1. Normal CTA of the abdomen. 2. No acute intra- abdominal abnormality. 10/02 -patient seen by neurology, Dr. Braxton, triamterene/HCTZ stopped. Plan for outpatient follow-up, may have underlying small fiber neuropathy, consider outpatient skin punch biopsy to assess this issue. 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 Recommend mirtazapine nightly, physical therapy, ps ychotherapy, frequent reassurance about her medical condition, frequent PCP follow-ups. Patient does not wish to try mirtazapine. 4. History of gastroesophageal reflux disease. Continue Pepcid. 5. Sleep apnea. CPAP at bedtime. 6. History of asthma, currently stable. DVT prophylaxis. Sequential compression devices. DISPOSITION: Plan to [place] home Admission and Anticipated Discharge Date Admission Date: October 01, 2021 Subjective Patient seen in follow-up of chest pain, muscle aches Patient reports having chest pain/pressure that has been progressively worse over several weeks Reports some back pain, and chest pain, with some radiation to her neck and around the chest She is currently able to speak in full sentences, and she saturating well on room air She was started on new medication yesterday, ivabradine, pt seems to be tolerating it well. She also tried hydroxyzine last night, which helped her sleep. Denies fevers chills, abdominal pain, nausea vomiting Neurology and cardiology consulted Review of Systems Review of Systems: All systems reviewed & are unremarkable except as noted in Subjective Physical Exam Physical Exam: GENERAL: The patient is morbidly obese F, not in acute distress. HEENT: NC/AT. EOMI. Pupils equal, round and reactive to light. Oral mucosa m oist. NECK: No JVD, no neck masses. CARDIOVASCULAR: S1 and S2 heard. Regular rate and rhythm. No murmur, no gallop. RESPIRATORY: Normal AP diameter. No accessory muscle use. No wheezing, no aircraft skin burnisher ckles. ABDOMEN: Soft, bowel sounds present, nontender, no distention. NEURO: Alert and oriented. No facial droop. Speech is clear.Strength 5/5 in all extremities.Moves extremities. EXTREMITIES: No edema, no erythema. Results & Data Results & Data ([facility]) Vital Signs (Past 12 Hours) Vital Signs Temp Pulse Pulse Resp BP BP Pulse Ox 10/04/21 07:17 36.8 C 63 18 126/84 98 10/04/21 04:00 36.8 C 68 20 109/79 97 10/04/21 00:54 83 10/04/21 00:00 10/03/21 23:20 36.7 C 80 20 120/87 98 Pulse Ox 10/04/21 07:17 10/04/21 04:00 10/04/21 00:54 10/04/21 00:00 98 10/03/21 23:20 Medications Administered Current Inpatient Medications Acetaminophen (Acetaminophen 325 Mg Tab) 650 mg PO Q4H PRN PRN Reason: Pain or Fever Stop: 10/28/21 00:02 Last Admin: 09/28/21 11:14 Dose: 650 mg Documented by: Diclofenac Sodium (Diclofenac Sod 1% Gel 100 Gm Tube) 2 gm EXT QID [facility] Stop: 10/29/21 12:59 Last Admin: 10/04/21 09:09 Dose: Not Given Documented by: Diphenhydramine HCl (Diphenhydramine Capsule 25 Mg Cap) 25 mg PO TID PRN PRN Reason: Sleep Stop: 11/02/21 18:30 Famotidine (Famotidine 20 Mg Tab) 20 mg PO DAILY [facility] Stop: 10/28/21 08:59 Last Admin: 10/04/21 09:10 Dose: Not Given Documented by: Hydroxyzine HCl (Hydroxyzine Hcl 25 Mg Tab) 25 mg PO QID PRN PRN Reason: anxiety, sleep Stop: 11/02/21 18:29 Last Admin: 10/03/21 23:18 Dose: 25 mg Documented by: Ketorolac Tromethamine (Ketorolac 30 Mg/Ml Vial) 30 mg IV Q6H PRN PRN Reason: Pain Stop: 10/05/21 16:43 Last Admin: 10/03/21 08:41 Dose: 30 mg Documented by: Lidocaine (Lidocaine 5% 1 Patch) 1 patch TD QAM [facility] Stop: 10/30/21 13:14 Last Admin: 10/04/21 09:09 Dose: Not Given Documented by: Loratadine (Loratadine 10 Mg Tab) 10 mg PO HS PRN PRN Reason: Congestion Stop: 10/28/21 00:02 Lorazepam (Lorazepam 0.5 Mg Tab) 0.5 mg PO QID PRN PRN Reason: Anxiety Stop: 10/31/21 12:28 Melatonin (Melatonin 3 Mg Tab) 4.5 mg PO HS PRN PRN Reason: Sleep Last Admin: 10/01/21 23:04 Dose: 4.5 mg Documented by: Meloxicam (Meloxicam 7.5 Mg Tab) 15 mg PO QAM [facility] Stop: 10/29/21 09:14 Last Admin: 10/04/21 09:09 Dose: Not Given Documented by: Metoprolol Succinate (Metoprolol Succ 25mg Ext Rel Tab) 25 mg PO [facility] Stop: 10/28/21 20:59 Last Admin: 10/03/21 20:34 Dose: Not Given Documented by: Mirtazapine (Mirtazapine Tab 15 Mg Tab) 7.5 mg PO HS [facility] Stop: 11/01/21 20:59 Last Admin: 10/03/21 20:34 Dose: Not Given Documented by: Miscellaneous (Remove Lidoderm Patch) 1 ea N/A DAILY@2100 [facility] Stop: 10/30/21 20:59 Last Admin: 10/03/21 20:34 Dose: Not Given Documented by: Multivitamins (Multivitamin Tab) 1 tab PO [facility] Stop: 10/28/21 08:59 Last Admin: 10/04/21 09:09 Dose: Not Given Documented by: Nitroglycerin (Nitroglycerin Sl 0.4 Mg/Tab Tab) 0.4 mg SL UD PRN PRN Reason: Chest Pain Stop: 10/28/21 00:02 Last Admin: 09/28/21 11:04 Dose: 0.4 mg Documented by: Ivabradine 5 Mg [ Corlanor]: Non- Formulary Patient's Own Med 1 ea PO BID [facility] Stop: 11/02/21 20:59 Last Admin: 10/04/21 09:10 Dose: 2.5 mg Documented by: Ondansetron HCl (Ondansetron Inj 2 Mg/Ml 2 Ml Vial) 4 mg IV Q6H PRN PRN Reason: Nausea Stop: 10/28/21 00:02 Last Admin: 10/01/21 08:43 Dose: 4 mg Documented by: Oxycodone HCl (Oxycodone Hcl Ir 5 Mg Tab (Immediate Release)) 5 mg PO Q6H PRN PRN Reason: Pain Stop: 10/14/21 13:03 Pantoprazole Sodium (Pantoprazole 40 Mg Tab) 40 mg PO QAM [facility] Stop: 10/30/21 13:14 Last Admin: 10/04/21 09:09 Dose: Not Given Documented by: Polyethylene Glycol (Polyethylene (Miralax) 17 Gm Pack) 17 gm PO DAILY PRN PRN Reason: Constipation Stop: 10/28/21 00:02
--- NOTE | 2021-10-04 09:53 | Discharge Summary ---
Date of Service October 04, 2021 Admission HPI Per Admitting Provider This is a 36-year-old female with past medical history significant for mild intermittent asthma, history of sleep apnea, allergic rhinitis, history of palpitation, pericarditis, morbid obesity, GERD, vitamin D deficiency, history of fibromyalgia, costochondritis , atypical chest pain, atypical migraine, iron deficiency anemia, anxiety, depression, HLA-B27 positive. She seems to also have history of intracranial hypertension in the form of pseudotumor cerebri, follows with Neurology. She was given Diamox .Panfilo started feeling have muscle pain, muscle weakness, chest pain, not feeling well. She thought it was side effects of Diamox and she stopped it. Since then, she is getting some pressure in the eyes, but her muscle pain and chest pain did not improve. She called her neurology and referred to come to the ER. Otherwise, she is resting comfortably, hemodynamically stable. Currently no headache, no blurred visions, no runny nose, no sore throat, no cough, no fevers, no shortness of breath, no nausea, no abdominal pain. Normal bowel and bladder movements. She likes to stay in the hospital and get evaluated. Admission Exam Per Admitting Provider GENERAL: The patient is morbidly obese, not in acute distress. VITAL SIGNS: Temperature 36.6, pulse 74, respiratory rate 18, blood pressure 143/84, oxygen 99% on room air. HEENT: Pupils equal, round and reactive to light. Oral mucosa moist. NECK: No JVD, no neck masses. CARDIOVASCULAR: S1 and S2 heard. Regular rate and rhythm. No murmur, no gallop. RESPIRATORY SYSTEM: Normal AP diameter. No accessory muscle use. No wheezing, no crackles. ABDOMEN: Soft, bowel sounds present, nontender, no distention. CENTRAL NERVOUS SYSTEM: Alert and oriented. No facial droop. Speech is clear. Insight is good. Power 5/5 in all extremities. Sensation seems intact, but the patient says some decreased sensation. EXTREMITIES: No edema, no erythema. Principal Diagnosis Chest pain, palpitations Possible POTS syndrome, possible idiopathic intracranial hypertension, possible small fiber neuropathy Somatic symptom disorder Discharge Exam GENERAL: The patient is morbidly obese F, not in acute distress. HEENT: NC/AT. EOMI. Pupils equal, round and reactive to light. Oral mucosa moist. NECK: No JVD, no neck masses. CARDIOVASCULAR: S1 and S2 heard. Regular rate and rhythm. No murmur, no gallop. RESPIRATORY: Normal AP diameter. No accessory muscle use. No wheezing, no crackles. ABDOMEN: Soft, bowel sounds present, nontender, no distention. NEURO: Alert and oriented. No facial droop. Speech is clear.Strength 5/5 in all extremities.Moves extremities. EXTREMITIES: No edema, no erythema. Discharge Data Allergies Allergy/AdvReac Type Severity Reaction Status Date / Time amoxicillin Allergy Severe ANAPHYLAXIS Verified 09/27/21 21:15 clavulanic acid Allergy Severe ANAPHYLAXIS Verified 09/27/21 21:15 Iodinated Contrast Media Allergy Severe Hives, Verified 09/27/21 21:15 tongue swelling doxycycline Allergy Intermediate Rash Verified 09/27/21 21:15 egg Allergy Intermediate Hives Verified 09/27/21 21:15 fish derived Allergy Intermediate Hives Verified 09/27/21 21:15 metronidazole Allergy Intermediate rash Verified 09/27/21 21:15 sulfamethoxazole Allergy Intermediate tongue Verified 09/27/21 21:15 [From Bactrim] swelling trimethoprim [From Bactrim] Allergy Intermediate tongue Verified 09/27/21 21:15 swelling coffee (Coffea arabica) Allergy Unknown per Verified 09/27/21 21:15 allergy testing Penicillins Allergy Unknown per Verified 09/24/21 16:29 allergy testing Consultations 09/27/21 21:50 ED Decision to Admit Stat 09/28/21 08:00 Consult Cardiology Routine Consult Neurology Routine 10/01/21 12:46 Consult Psychiatry Routine 10/02/21 15:03 Consult Patient Rep [Consult Patient Services] Routine 10/02/21 15:34 Consult Cardiac Electrophysiology Routine Ordered Studies 09/29/21 09:05 MR cervical spine wo con Routine IMPRESSION: Mild right neural foraminal stenosis is seen. MR thoracic spine wo con Routine IMPRESSION: 1. Motion degraded exam. No acute fracture or bone marrow edema. 2. Mild discogenic degeneration at T10-T11 and T11-T12 as above. 3. No high-grade central canal or neural foraminal narrowing. 4. Normal signal of the thoracic spinal cord. 09/30/21 13:36 CT chest diagnostic wo con Urgent IMPRESSION: 1. There is no acute chest disease on these noncontrast images. 2. Negative evaluation of the sternum. 09/30/21 13:38 MR angio abdomen wo/w con Urgent IMPRESSION: 1. Normal CTA of the abdomen. 2. No acute intra-abdominal abnormality. Hospital Course (1) Chronic chest pain: This is a 36-year-old female who presents with ongoing muscle pain, muscle weakness and chest pain, history of intracranial hypertension or pseudotumor cerebri, stopped taking Diamox. 1. Chest pain.Palpitations. The patient is following Cardiology for palpitations. She is on metoprolol.Initial workup is negative. Ordered serial enzymes, echo, and consult Cardiology. Monitor in the med/tele floor. Troponin negative Repeat EKG w/o changes sinus rhythm on tele Echo -consistent with normal examination Cardiology was consulted, and patient was evaluated. No further cardiac testing warranted. 10/02 - patient continues to complain of palpitations, cardiology asked to re- evaluate. Juvenile Correctional Officer also consulted. Patient seen by internet designer, Dr. Enamorado, plan to start ivabradine. Prescription sent to patient's pharmacy, and paperwork submitted for prior authorization. 10/03 - provided with sample of the medication, by the commercial lines sales executive, which should last the patient 1 to 2 weeks. 2. History of intracranial hypertension or pseudotumor cerebri. Follow up with Neurology. Was on Diamox, but stopped Diamox because of her muscle pains, thought her muscle pains and weakness causing from it . Has some pressure in the eyes. Will consult neurology while the patient is in the hospital. Per neurology - pt had extensive work-up, pls see Dr. Fay's detailed note. Discussed patient's case in detail with Dr. Fay, her testing, not consistent wit h pseudotumor cerebri nor POTS Recommend to cont. Dyazide. Can try Cymbalta (however patient hesitant to try SSRIs) Will obtain ESR, CRP, patient may need further rheumatologic work-up as o utpatient. Given her presentation, recommend to obtain MRI of cervical and thoracic spine without contrast. This study was obtained as below Patient also may undergo skin biopsy for small fiber neuropathy as well as standard muscle biopsy. These studies would to be done as outpatient. MRI cervical spine IMPRESSION: Mild right neural foraminal stenosis is seen. MRI thoracic spine IMPRESSION: 1. Motion degraded exam. No acute fracture or bone marrow edema. 2. Mild discogenic degeneration at T10-T11 and T11-T12 as above. 3. No high-grade central canal or neural foraminal narrowing. 4. Normal signal of the thoracic spinal cord. Patient also continues to have sternal pain, and epigastric/upper abdominal pain. I discussed with radiology, to review previous images and to recommend further imaging to evaluate this as previous studies not explaining her symptoms. Patient is also allergic to CT dye. Recommend obtaining CT chest without c ontrast to further evaluate sternal and chest ulcer, compare images from June. Recommend abdominal MRI with contrast to evaluate vasculature, rule out SMA syndrome. Of note, patient reports weight loss without trying to lose weight. CT chest w/o -unremarkable MRI abdomen, with contrast - 1. Normal CTA of the abdomen. 2. No acute intra- abdominal abnormality. 10/02 -patient seen by neurology, Dr. Braxton, triamterene/HCTZ stopped. Plan for outpatient follow-up, may have underlying small fiber neuropathy, consider outp atient skin punch biopsy to assess this issue. 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 Recommend mirtazapine nightly, physical therapy, psychotherapy, frequent reassurance about her medical condition, frequent PCP follow-ups. Patient does not wish to try mirtazapine. 4. History of gastroesophageal reflux disease. Continue Pepcid. 5. Sleep apnea. CPAP at bedtime. 6. History of asthma, currently stable. DVT prophylaxis. Sequential compression devices. DISPOSITION: Plan to [place] home Total Time Total Time Spent Total Time Spent (In Minutes): 40 Discharge Plan Discharge Items Patient Disposition: Home - Self-Care Reason For Visit: CHEST PAIN Discharge Diagnosis: Chest pain, palpitations Possible POTS syndrome, possible idiopathic intracranial hypertension, possible small fiber neuropathy Somatic symptom disorder Condition on Discharge: Good Activity: Per Instructions section Non-emergency contact: Primary Care Provider, Journalism Instructor and Neurologist Call non-emergency contact if: you have any medication questions and your symptoms worsen Follow-up/Referrals: Siddhartha Leigh DO [Physician] - (Date & Time 10/10/2021 1:40 PM Provider Siddhartha Leigh DO Department Neurology [facility] ) Angela Thomas MD [Primary Care Provider] - (Date & Time 10/09/2021 1:00 PM Provider Alena Velasquez MD Department Family Medicine [facility] ) Diet: Regular Addtl Attending Provider Instructions: Follow-up with your primary care doctor, commercial lines sales executive and neurologist. Stop taking triamterene/HCTZ. You were started on new medication, ivabradine, start taking it at dose of 2.5 mg twice a day, then may increase to 5 mg twice a day. For sleep/anxiety, you can take hydroxyzine as prescribed. For pain, recommend taking NSAIDs, such as meloxicam or naproxen. Make sure you take these medications with food. Continue to work with physical therapy. Pending Studies at Discharge: No Stand-Alone Forms: My [facility] [employer], Smoking Cessation Medications and DC Order Prescriptions: New ivabradine 5 mg tablet 5 mg PO BID 14 Days Qty: 28 RF: 0 hydroxyzine HCl 25 mg Tablet 25 mg PO QID PRN (Reason: Anxiety, sleep) Qty: 14 RF: 0 meloxicam 7.5 mg Tablet 15 mg PO QAM Qty: 10 RF: 0 Continued loratadine [Claritin] 10 mg tablet 10 mg PO HS PRN (Reason: Congestion) RF: 0 multivitamin Tablet 1 tab PO QAM RF: 0 ergocalciferol (vitamin D2) 1,250 mcg (50,000 unit) capsule 1,250 mcg PO WK RF: 0 famotidine [Pepcid] 20 mg Tablet 20 mg PO DAILY RF: 0 melatonin 5 mg Tablet 5 mg PO HS PRN (Reason: Sleep) RF: 0 ketoconazole 2 % shampoo 1 applic TOPICAL [id number] RF: 0 Discontinued triamterene-hydrochlorothiazid [Maxzide] 75-50 mg tablet 1 tab PO DAILY Qty: 30 RF: 2 metoprolol succinate 25 mg tablet extended release 24 hr 25 mg PO HS RF: 0 Discharge Orders: Discharge Order (Routine); Ordered 10/04/21 Ordered By: Jed Banuelos Admission Data Admit Date/Time: 10/01/21 08:08 Attending Provider: Jed Banuelos Admit Provider: Ross Lozano Primary Care Provider: Angela Thomas Other Providers: Ross Lozano ; Faisal Gastelum ; Juan Pablo Landry ; Domenico Wilburn ; Helio Marquez ; Beny Carrizales ; Raffaele Henderson ; Larissa Germain ; Ashlee Cabrera ; Talita Guadarrama ; Gagan Garcia ; Buddy Braxton ; Asya Ambrosio ; Kati Dillon ; Lyssa Brasher ; Paulino Enamorado
== END 2021-10-04 11:00 | disposition home health service (06) ==
LOC: 2N 17:40 → ED 17:40 → 2N 23:49

== ENCOUNTER 2024-08-02 14:57 | Inpatient (IN) ==
--- OUTSIDE RECORDS SUMMARY | 2024-08-02 15:06 | External Medical Summary | Summary of Care ---
Author Name Unknown Organization [facility] Address [address] [place] [address] Phone [phone] Care Team Providers Care Quilt Maker Name Role Phone Angela Raza MD Primary Care Prov ider Reason for Visit * Reason Onset Date Comments Appointment 07/29/2024 CT CHEST- [facility] Encounter Details Date Type Department Care Team (Late st Contact Info) Description 07/29/2024 Telephone Family Medicine [address] [phone] Ludy Bob MD [address] [place] [address] [place] [address] Appointment (CT [facility]) Allergies Active Allergy Reactions Criticality Noted Date Comments Amoxicillin High 05/28/2017 Other reaction(s): ANAPHYLAXIS Amoxicillin-Pot Clavulanate 05/07/20 11 Swelling of throat/hives Cefditoren Pivoxil 06/30/2020 Per allergy testing - unknown side effects Clavulanic Acid High 05/28/2017 Other reaction(s): ANAPHYLAXIS Coffea Arabica 06/30/2020 Per allergy testing Doxycycline Medium 04/08/2018 Skin reaction Other reaction(s): Rash Food (See Comments) 02/16/2021 Tuna Iodinated Contrast Media High 06/30/2020 Intermediate allergy - hives Other Reaction(s): Hives, tongue swelling Levocarnitine 07/23/2023 Heart palpitations Metronidazole Rash Low 01/18/2016 Other reaction(s): rash Penicillins 06/30/2020 Per allergy testing Sulfamethoxazole 06/30/2020 Tongue swelling Trimethoprim 06/30/2020 Tongue swelling documented as of this encounter (statuses as of 07/30/2024) Medications melatonin 1 MG Tablet Take 3 Tablets by mouth at bedtime. Active Magnesium 250 MG Oral Tablet Take 1 Tablet by mouth in the morning. Active Loratadine 10 MG Oral Tablet (Claritin) Take 1 Tablet by mouth daily as needed for Rhinitis. Active OneTouch Ultra In Vitro Strip (Glucose Blood)Indications :Prediabetes,Hypo glycemia, unspecified TESTING 4-5 TIMES PER DAY 500 Strip 1 4 Active Tacrolimus 0.1 % External Ointment (Protopic) as needed. 4 Active Ozempic (0.25 or 0.5 MG/DOSE) 2 MG/3ML Solution Pen-injector (Semaglutide(0.25 or 0.5MG/DOS))Indica tions:Morbid obesity due to excess calories (HCC),Abnormal weight gain Inject 0.5 mg under the skin once a week. 9 mL 06/01/2024 8:25 AM EST 4 Active Clobetasol Propionate 0.05 % External SolutionIndicatio ns:Psoriasis of scalp,Plaque psoriasis Apply to scalp and behind the ear one daily for up to two weeks. 50 mL 3 4 Active Calcipotriene 0.005 % External Cream (Calcitrene)Indic ations:Plaque psoriasis Apply topically to affected area 2 times a day. Apply to areas of plaque psoriasis 120 g 5 4 Active Calcipotriene 0.005 % External FoamIndications:P soriasis of scalp Apply topically to affected area daily. Apply to scalp 120 g 5 4 Active Betamethasone Dipropionate 0.05 % External Cream (Diprosone) Apply topically to affected area 2 times a day. To affected area. 45 g 3 4 Active Fluticasone Propionate 50 MCG/ACT Nasal Suspension (Flonase)Indicati ons:Sinus congestion Administer 2 Sprays into each nostril in the morning. 16 g 5 5 Active Escitalopram Oxalate 10 MG Oral Tablet (Lexapro)Indicati ons:Anxiety,Somat oform disorder TAKE 1 TABLET BY MOUTH EVERY DAY IN THE MORNING 90 Tablet 3 5 Active documented as of this encounter (statuses as of 07/30/2024) Active Problems Problem Noted Date Diagnosed Date TINA (generalized anxiety disorder) 07/21/2024 Prolonged QT interval 07/21/2024 Body mass index (BMI) of 45.0 to 49.9 in adult 0 06/29/2024 Overview: Per Obesity protocol - Per Obesity protocol - Per Obesity protocol - Insulin resistance 05/25/2024 Neuropathy 05/25/2024 Essential (primary) hypertension 05/25/2024 Plaque psoriasis 05/25/2024 Hyperglycemia 10/13/2021 Mold exposure 10/13/2021 History of recent animal bite 10/13/2021 Elevated serum free T4 level 09/15/2021 Gottron's papules 09/15/2021 Tinnitus of both ears 08/03/2021 Seasonal allergic rhinitis due to pollen 022 Dizziness 02/15/2021 Daytime somnolence 06/06/2018 Overview (06/06/2018): Per Pulmonology records 06/04/18. She declined CPAP. Vitamin D deficiency 06/05/2018 Atypical chest pain 05/14/2018 Gastroesophageal reflux disease 04/25/2018 Anxiety 04/25/2018 Morbid obesity due to excess calories 04/25/2018 Palpitations 04/21/2018 Other viral warts 04/21/2018 Mild intermittent asthma without complication Overview (06/06/2018): Advised to start Breo 06/04/18 per Pulmonology. HLA B27 positive 10/18/2017 Serologic abnormality 02/07/2016 Fibromyalgia 02/07/2016 DDD (degenerative disc disease), cervical Depression History of bulimia Insomnia Atypical migraine Iron deficiency anemia documented as of this encounter (statuses as of 07/30/2024) Resolved Problems Problem Noted Date Diagnosed Date Resolved Date Asthma 05/25/2024 05/25/2024 Body mass index (BMI) of 50. 0 to 59.9 in adult 04/29/2023 07/02/2024 Overview: Per Obesity protocol - Per Obesity protocol - Pressure in chest 08/03/2021 07/10/2024 Acute deep vein thrombosis ( DVT) of lower extremity 03/28/2021 03/28/2021 Body mass index (BMI) of 45. 0 to 49.9 in adult 02/27/2021 05/02/2023 Overview: Per Obesity protocol - Costochondritis 06/06/2018 05/25/2024 Body mass index (BMI) of 40. 0 to 44.9 in adult 04/28/2018 03/02/2021 Overview: Per Obesity protocol #1 Trochanteric bursitis of right hip 04/25/2018 05/23/2018 Acute deep vein thrombosis ( DVT) of tibial vein of right lower extremity 04/16/2018 05/23/2018 Overview (04/16/2018): Dx 03/26/18 in Er Mild intermittent asthma without complication 04/08/20 18 05/23/2018 Pericarditis 06/17/2014 05/25/2024 Overview (02/15/2021): After pneumonia Obesity, Class II, BMI 35-39 .9, isolated (see actual BMI) 11/28/2009 04/08/2018 Overview (11/28/2009): Per Obesity Protocol, #19 Allergic urticaria 09/04/2005 8 Bacterial vaginosis 07/10/19 25 UTI (urinary tract infection) 07/10/2024 documented as of this encounter (statuses as of 07/30/2024) Immunizations Name Administration Dates Next Due Hepatitis B, 20+ yrs 05/25/2024 Seasonal Influenza Vac., MDV, IM, 0.5 mL (Fluzon e) 03/25/2018,05/07/2011 TDAP (age 10 and older)(Boostrix) 03/17/2015 documented as of this encounter Social History Tobacco Use Types Packs/Day Years Used Date Smoking Tobacco: Former Cigarettes 0.1 1 1 08/07/2006 - 06/06/2008 Smokeless Tobacco: Former Snuff Quit: 02/15/2014 Alcohol Use Standard Drinks/Week Comments Not Currently 0 (1 standard drink = 0.6 oz pur e alcohol) hasn't drank in years PHQ-2 Answer Date Recorded PHQ Adult Total Score 3 05/25/2024 Comments No Sex and Gender Information Value Date Recorded Sex Assigned at Female 07/24/2023 9:15 AM EST Legal Sex Female 5:59 AM EST Gender Identity Female 07/24/2023 9:15 AM EST Sexual Orientation Not on file documented as of this encounter Functional Status * Are you deaf or do you have serious difficulty hearing? Answer Date of Assessment Author No 02/15/2021 1:34 AM Kaur Mancuso RN * Are you blind or do you have serious difficulty seeing, even when wearing glasses? Answer Date of Assessment Author No 02/15/2021 1:34 AM Kaur Mancuso RN * Do you have serious difficulty walking or climbing stairs? (5 years old or older) Answer Date of Assessment Author Yes 02/15/2021 1:34 AM Kaur Mancuso RN * Do you have difficulty dressing or bathing? (5 years old or older) Answer Date of Assessment Author Yes 02/15/2021 1:34 AM Kaur Mancuso RN * Because of a physical, mental, or emotional condition, do you have difficulty doing errands alone such as visiting a doctors office or shopping? (15 years old or older) Answer Date of Assessment Author Yes 02/15/2021 1:34 AM Kaur Mancuso RN documented as of this encounter Mental Status * Because of a physical, mental, or emotional condition, do you have serious difficulty concentrating, remembering, or making decisions? (5 years old or older) Answer Entry Date Author No 02/15/2021 1:34 AM Kaur Mancuso RN documented in this encounter Miscellaneous Notes * Telephone Encounter - Jacob Ramirez OSA - 07/30/2024 2:17 PM EST Spoke to pt. Unable to make that appt. I spoke to Verna she was actually at [facility] getting herlabs done. She is going to the CT dept and rescheduling the appt * Telephone Encounter - Jacob Ramirez OSA - 07/30/2024 2:04 PM EST Pt is scheduled at [facility] Saturday07/31/2024 at 10:30 am. I called pt and left message on her vm to call me back to see if appt works. * Telephone Encounter - Jacob Ramirez OSA - 07/30/2024 11:11 AM EST AUTH #[id number]. I faxed order to [facility]. I will call them to make an appt * Telephone Encounter - Jacob Ramirez OSA - 07/29/2024 12:31 PM EST Per pt wants done at [facility]. I sent email to [facility] to obtain auth. Pt aware that we willlet her know when scheduled. documented in this encounter Plan of Treatment Upcoming Encounters Date Type Department Care Team (Late st Contact Info) Description 10/09/2024 11:00 AM EDT Office Visit [address] [place] [phone] Ludy Bob MD [address] [place] [address] [place] [phone] 11/23/2024 9:00 AM EDT Office Visit [address] [place] [phone] Maddison Parker PA-C [address] [place] [address] [place] [phone] 05/26/2025 9:00 AM EST Office Visit Family Medicine [address] [place] [phone] Angela Raza MD [address] [place] [address] [place] [phone] Health Maintenance Due Date Last Done Comments HIV Screening 09/22/2002 Albumin/Creatinine Ratio 09/22/2005 Pneumococcal Vaccine: Pediatrics (0 to 5 Years) and At-Risk Patients (6 to 18 Years and 19+ Years) (1 of 2 - PCV) 09/22/2006 HPV/Co-Test 09/22/2017 COVID-19 Vaccine (1 - season) 2024 Influenza Vaccine (FLU shot) (#1) 2024 03/25/2018, 05/07/2011 Hepatitis B Vaccine (3 of 3 - 3-dose series) 07/20/2024 05/25/2024, 03/17/1995 DTap/Tdap Vaccines (3 - Td or Tdap) 03/17/2025 03/17/2015, 01/04/2005 Depression Monitoring 05/25/2025 05/25/2024 Cervical Cancer Screening 07/02/2025 Pap Smear 07/02/2025 07/02/2022, 12/09/2017, 11/03/2012, Additional history exists GFR 07/14/2025 07/14/2024, 06/18, 07/06/2024, Additional history exists Diabetes Screening 07/14/2027 07/14/2024, 0 07/09/2024, 07/06/2024, Additional history exists HPV (Gardasil) Vaccine Aged Out No lo nger eligible based on patient's age to complete this topic MENINGOCOCCAL (MENACTRA/MENVEO) Aged Out No longer eligible based on patient's age to complete this topic documented as of this encounter Medical Devices Not on filedocumented as of this encounter Advance Directives * Full Code (Latest Code Status on File) Date Activated Date Inactivated Comments 02/15/2021 5:08 AM 02/17/2021 4:06 PM This order ref lects the patients wishes and were consensually agreed upon. Question Answer Comments Discussion of Advance Directives occurred with: Not Discussed Does the patient have a Living Will? No Does the patient have Health Care Power of Attor wesley? No Care Teams Quilt Maker Relationship Specialty Start Date End Date Angela Raza MD [address] [place] [address] [place] [phone] PCP - General Family Medicine 08/17/21 documented as of this encounter
--- OUTSIDE RECORDS SUMMARY | 2024-08-02 15:06 | External Medical Summary | Summary of Care ---
Author Name Unknown Organization [facility] Address [address] [place] [address] Phone [phone] Care Team Providers Care Counselor Aide Name Role Phone Angela Raza MD Primary Care Prov ider Reason for Visit * Reason Onset Date Comments Appointment 07/29/2024 CT CHEST- [facility] Encounter Details Date Type Department Care Team (Late st Contact Info) Description 07/29/2024 Telephone Family Medicine [address] [phone] Ludy Bob MD [address] [place] [address] [place] [phone] Appointment ([facility]) [...] OSA - 07/30/2024 11:11 AM EST AUTH #[id number]. I faxed order to [facility]. I will call them to make an appt * Telephone Encounter - Jacob Ramirez OSA - 07/29/2024 12:31 PM EST Per pt wants done at [facility]. I sent email to [facility] to obtain auth. Pt aware that we willlet her know when scheduled. documented in this encounter Plan of Treatment Upcoming Encounters Date Type Department Care Team (Late st Contact Info) Description 10/09/2024 11:00 AM EDT Office Visit [address] [phone] Ludy Bob MD [address] [place] [address] [place] [phone] 11/23/2024 9:00 AM EDT Office Visit [address] [phone] Maddison Parker PA-C [address] [place] [address] [place] [phone] 05/26/2025 9:00 AM EST Office Visit [address] [phone] Angela Raza MD [address] [place] [address] [place] [phone] Health Maintenance Due Date Last Done Comments HIV Screening 09/22/2002 Albumin/Creatinine Ratio 09/22/2005 Pneumococcal Vaccine: Pediatrics (0 to 5 Years) and At-Risk Patients (6 to 18 Years and 19+ Years) (1 of 2 - PCV) 09/22/2006 HPV/Co-Test 09/22/2017 COVID-19 Vaccine ( - season) 2024 Influenza Vaccine (FLU shot) [...] Power of Attor wesley? No Care Teams Counselor Aide Relationship Specialty Start Date End Date Angela Raza MD [address] [place] [address] [place] [phone] PCP - General Family Medicine 08/17/21 documented as of this encounter
--- OUTSIDE RECORDS SUMMARY | 2024-08-02 15:06 | External Medical Summary | Summary of Care ---
Author Name Unknown Organization [facility] Address [address] [place] [address] Phone [phone] Care Team Providers Care Traffic Worker Name Role Phone Angela Raza MD Primary Care Prov ider Reason for Visit * Reason Onset Date Comments Order Request 07/29/2024 LAB ORDERS Encounter Details Date Type Department Care Team ([facility] st Contact Info) Description 07/29/2024 Telephone Family Medicine [address] [phone] Ludy Bob MD [address] [place] [address] [place] [phone] Order Request (LAB ORDERS) Allergies Active Allergy Reactions Criticality Noted Date [...] as of this encounter (statuses as of 07/29/2024) Medications melatonin 1 MG Tablet Take 3 [...] as of this encounter (statuses as of 07/29/2024) Active Problems Problem Noted Date Diagnosed Date [...] as of this encounter (statuses as of 07/29/2024) Resolved Problems Problem Noted Date Diagnosed Date [...] as of this encounter (statuses as of 07/29/2024) Immunizations Name Administration Dates Next Due Hepatitis [...] Encounter - Jacob Ramirez OSA - 07/29/2024 1:57 PM EST I faxed lab orders [facility] [id number]. Rec'd fax confirmation success. * Telephone Encounter - Margaret Johnson RN - 07/29/2024 1:00 PM EST Yes please fax the lab orders over * Telephone Encounter - Jacob Ramirez OSA - 07/29/2024 12:20 PM EST Pt stated that she wanted her lab orders to be faxed to [facility]. I can't see any documentation that this was done or not. Please advise? I can fax if not done yet. documented in this encounter Plan of Treatment Upcoming Encounters Date Type Department Care Team (Late st Contact Info) Description 10/09/2024 11:00 AM EDT Office Visit [address] [phone] Ludy Bob MD [address] [place] [address] [place] [phone] 11/23/2024 9:00 AM EDT Office Visit [address] [place] [phone] Maddison Parker PA-C [address] [place] [address] [place] [phone] 05/26/2025 9:00 AM EST Office Visit [address] [place] [phone] Angela Raza MD [address] [place] [address] [place] [address] Health Maintenance Due Date Last Done Comments [...] Cancer Screening 07/02/2025 Pap Smear 07/02/2025 07/02/2022, 09/2017, 11/03/2012, Additional history exists GFR 07/14/2025 07/14/2024, [...] Power of Attor wesley? No Care Teams Traffic Worker Relationship Specialty Start Date End Date Angela Raza MD [address] [place] [address] [place] [phone] PCP - General Family Medicine 08/17/21 documented as of this encounter
--- OUTSIDE RECORDS SUMMARY | 2024-08-02 15:06 | External Medical Summary | Summary of Care ---
Author Name Unknown Organization [facility] Address [address] [place] [address] Phone [phone] Care Team Providers Care Talent Development Analyst Name Role Phone Angela Raza MD Primary Care Prov ider Encounter Details Date Type Department Care Team ([facility] st Contact Info) Description 07/27/2024 Result Scan Unspecified Department <No scans attached> Allergies Active Allergy Reactions Criticality Noted Date [...] as of this encounter (statuses as of 07/28/2024) Medications melatonin 1 MG Tablet Take 3 [...] as of this encounter (statuses as of 07/28/2024) Active Problems Problem Noted Date Diagnosed Date [...] as of this encounter (statuses as of 07/28/2024) Resolved Problems Problem Noted Date Diagnosed Date [...] as of this encounter (statuses as of 07/28/2024) Immunizations Name Administration Dates Next Due Hepatitis [...] Kaur Mancuso RN documented in this encounter Plan of Treatment Upcoming Encounters Date Type Department Care Team (Late st Contact Info) Description 10/09/2024 11:00 AM EDT Office Visit [address] [place] [phone] Ludy Bob MD [address] [place] [address] [place] [phone] 11/23/2024 9:00 AM EDT Office Visit Family [address] [place] [phone] Maddison Parker PA-C [address] [place] [address] [place] [phone] 05/26/2025 9:00 AM EST Office Visit Family Medicine [address] [place] [phone] Angela Raza MD [address] [place] [address] [place] [phone] Health Maintenance Due Date Last Done Comments [...] Not on filedocumented as of this encounter Procedures Procedure Name Priority Date/Time Associated Diagnosis Comments EKG SCANNED RESULT 07/27/2024 RADIOLOGY SCANNED RESULT 07/27/2024 documented in this encounter Results * RADIOLOGY SCANNED RESULT (07/27/2024) 07/27/2024 us No Physician Data Unknown DIAGNOSTIC RADIOLOGY S ERVICES Final Result * EKG SCANNED RESULT (07/27/2024) 07/27/2024 us No Physician Data Unknown EKG Final Result documented in this encounter Advance Directives * Full Code [...] Power of Attor wesley? No Care Teams Talent Development Analyst Relationship Specialty Start Date End Date Angela Raza MD [address] [place] [address] [place] [phone] PCP - General Family Medicine 08/17/21 documented as of this encounter
--- OUTSIDE RECORDS SUMMARY | 2024-08-02 15:06 | External Medical Summary | Summary of Care ---
Author Name Unknown Organization [facility] Address [address] [place] [address] Phone [phone] Care Team Providers Care Svp Digital Sales Food & Cooking Name Role Phone Angela Raza MD Primary Care Prov ider Reason for Visit * Reason Comments Blood Pressure Check Encounter Details Date Type Department Care Team (Late st Contact Info) Description 07/24/2024 10:00 AM EST Nurse Only Ancillary [address] [place] [phone] [place], Nurse [address] [place] [phone] Blood Pressure Check Allergies Active Allergy Reactions Criticality Noted Date [...] as of this encounter (statuses as of 07/27/2024) Medications melatonin 1 MG Tablet Take 3 Tablets by mouth at bedtime. Active Magnesium 250 MG Oral Tablet Take 1 Tablet by mouth in the morning. Active Loratadine 10 MG Oral Tablet (Claritin) Take 1 Tablet by mouth daily as needed for Rhinitis. Active VanatecTouch Ultra In Vitro Strip (Glucose Blood)Indications :Prediabetes,Hypo [...] as of this encounter (statuses as of 07/27/2024) Active Problems Problem Noted Date Diagnosed Date [...] as of this encounter (statuses as of 07/27/2024) Resolved Problems Problem Noted Date Diagnosed Date [...] as of this encounter (statuses as of 07/27/2024) Immunizations Name Administration Dates Next Due Hepatitis [...] Kaur Mancuso RN documented in this encounter Nursing Notes * Yamileth Amaya CMA - 07/24/2024 9:59 AM EST Blood pressure: 118/82 Reconciliation of medications performed? Yes Did you take your medications today? Yes Any new problems or side effects of medications? No Any home blood pressure readings to report?does report BP doing better at home running 135/95 standing, 115/80 - 120/90 sitting Pharmacy verified? Yes Phone number to be reached verified? Yes Dr Galarza states BP good and to to f/u as sheduled documented in this encounter Miscellaneous Notes * Addendum Note - Yamileth Amaya CMA - 07/27/2024 9:00 AM ESTAddended by: YAMILETH AMAYA on: 07/27/2024 09:00 AM Modules accepted: Orders documented in this encounter Plan of Treatment Upcoming Encounters Date Type Department Care Team (Late st Contact Info) Description 10/09/2024 11:00 AM EDT Office Visit [address] [phone] Ludy Bob MD [address] [place] [address] [place] [phone] 11/23/2024 9:00 AM EDT Office Visit [address] [place] [phone] Maddison Parker PA-C [address] [place] [address] [place] [phone] 05/26/2025 9:00 AM EST Office Visit [address] [phone] Angela Raza MD [address] [place] [address] [place] [phone] Health Maintenance Due Date Last Done Comments [...] Not on filedocumented as of this encounter Results * EKG (07/24/2024 10:07 AM EST) 07/24/2024 10:0 7 AM EST Narrative Procedure Note Domenico Wilburn MD - 07/24/2024 10:07 AM EST REASON FOR STUDY: Dizines;Dizines CONCLUSIONS: Normal sinus rhythm Cannot rule out Anterior infarct (cited on or before 21-Jul-2024) Abnormal ECG When compared with ECG of 24-Jul-2024 10:06, No significant change was found Ventricular Rate: 83 Atrial Rate: 83 VA Interval: 162 QRS Duration: 76 QT/QTc: 398/467 ms P-R-T [place]: 31 : 24 : 48 degrees Ludy Segovia MD EKG Final Result [facility] documented in this encounter Visit Diagnoses Diagnosis Dizziness- Primary Dizziness and giddiness Prolonged QT interval Nonspecific abnormal electrocardiogram (ECG) (EKG) Dizziness Dizziness and giddiness Prolonged QT interval Nonspecific abnormal electrocardiogram (ECG) (EKG) documented in this encounter Advance Directives * [...] Power of Attor wesley? No Care Teams Svp Digital Sales Food & Cooking Relationship Specialty Start Date End Date Angela Raza MD [address] [place] [address] [place] [phone] PCP - General Family Medicine 08/17/21 documented as of this encounter
--- OUTSIDE RECORDS SUMMARY | 2024-08-02 15:06 | External Medical Summary | Summary of Care ---
Author Name Unknown Organization [facility] Address [address] [place] [address] Phone [phone] Care Team Providers Care Refinery Operator Alkylation Name Role Phone Angela Raza MD Primary Care Prov ider Reason for Visit * Reason Comments Blood Pressure Check Encounter Details Date Type Department Care Team (Late st Contact Info) Description 07/24/2024 10:00 AM EST Nurse Only Ancillary [address] [place] [address] [place], Nurse [address] [place] [address] Blood Pressure Check Allergies Active Allergy Reactions [...] as of this encounter (statuses as of 07/24/2024) Medications melatonin 1 MG Tablet Take 3 Tablets by mouth at bedtime. Active Magnesium 250 MG Oral Tablet Take 1 Tablet by mouth in the morning. Active Loratadine 10 MG Oral Tablet (Claritin) Take 1 Tablet by mouth daily as needed for Rhinitis. Active [email or web address] Ultra In Vitro Strip (Glucose Blood)Indications :Prediabetes,Hypo [...] as of this encounter (statuses as of 07/24/2024) Active Problems Problem Noted Date Diagnosed Date [...] as of this encounter (statuses as of 07/24/2024) Resolved Problems Problem Noted Date Diagnosed Date [...] as of this encounter (statuses as of 07/24/2024) Immunizations Name Administration Dates Next Due Hepatitis [...] documented in this encounter Nursing Notes * Radha Mix CMA - 07/24/2024 9:59 AM EST Blood [...] f/u as sheduled documented in this encounter Plan of Treatment Upcoming Encounters Date Type Department Care Team (Late st Contact Info) Description 10/09/2024 11:00 AM EDT Office Visit [address] [phone] Ludy Bob MD [address] [place] [address] [place] [phone] 11/23/2024 9:00 AM EDT Office Visit [address] [phone] Maddison Parker PA-C [address] [place] [address] [place] [address] 05/26/2025 9:00 AM EST Office Visit [address] [phone] Angela Raza MD [address] [place] [address] [place] [address] Health Maintenance Due Date Last Done Comments HIV Screening 09/22/2002 Albumin/Creatinine Ratio 09/22/2005 Pneumococcal Vaccine: Pediatrics (0 to 5 Years) and At-Risk Patients (6 to 18 Years and 19+ Years) (1 of 2 - PCV) 09/22/2006 HPV/Co-Test 09/22/2017 COVID-19 Vaccine (1 - 2023- season) 2024 Influenza Vaccine (FLU shot) (#1) 2024 03/25/2018, 05/07/2011 Hepatitis B Vaccine (3 of 3 - 3-dose series) 07/20/2024 05/25/2024, 03/17/1995 DTap/Tdap Vaccines (3 - Td or Tdap) 03/17/2025 03/17/2015, 01/04/2005 Depression Monitoring 05/25/2025 05/25/2024 Cervical Cancer Screening 07/02/2025 Pap Smear 07/02/2025 07/02/2022, 12/0 09/2017, 11/03/2012, Additional history exists GFR 07/14/2025 [...] Not on filedocumented as of this encounter Visit Diagnoses Diagnosis Dizziness- Primary [...] Power of Attor wesley? No Care Teams Refinery Operator Alkylation Relationship Specialty Start Date End Date Angela Raza MD [address] [place] [address] [place] [phone] PCP - General Family Medicine 08/17/21 documented as of this encounter
--- OUTSIDE RECORDS SUMMARY | 2024-08-02 15:06 | External Medical Summary | Summary of Care ---
Author Name Unknown Organization [facility] Address [address] [place] [address] Phone [phone] Care Team Providers Care Community Mental Health Worker Name Role Phone Angela Raza MD Primary Care Prov ider Reason for Visit * Reason Onset Date Comments Appointment 07/29/2024 CT CHEST- [facility] Encounter Details Date Type Department Care Team (Late st Contact Info) Description 07/29/2024 Telephone Family Medicine [address] [phone] Ludy Bob MD [address] [place] [address] [place] [phone] Appointment (CT CHEST- [facility]) [...] PM EST Per pt wants done at [facility]. I sent email to [employer] to obtain auth. Pt aware that we willlet her know when scheduled. documented in this encounter Plan of Treatment Upcoming Encounters Date Type Department Care Team (Late st Contact Info) Description 10/09/2024 11:00 AM EDT Office Visit [address] [phone] Ludy Bob MD [address] [place] [address] [place] [phone] 11/23/2024 9:00 AM EDT Office Visit [address] [place] [phone] Maddison Parker PA-C [address] [place] [address] [place] [address] 05/26/2025 9:00 AM EST Office Visit [address] [phone] Angela Raza MD [address] [place] [address] [place] [address] Health Maintenance Due Date Last Done Comments [...] Power of Attor wesley? No Care Teams Community Mental Health Worker Relationship Specialty Start Date End Date Angela aRza MD [address] [place] [address] [place] [phone] PCP - General Family Medicine 08/17/21 documented as of this encounter
--- OUTSIDE RECORDS SUMMARY | 2024-08-02 15:06 | External Medical Summary | Summary of Care ---
Author Name Unknown Organization [facility] Address [address] [place] [address] Phone [phone] Care Team Providers Care Internet Site Designer Name Role Phone Angela Raza MD Primary Care Prov ider Reason for Referral * Precert (Within 10 days (routine)) - Pending Review Specialty Diagnoses / Procedures Referred By Contac t Referred To Contact Radiology Diagnoses Other chest pain Chemical exposure Procedures CT CHEST WO CONTRAST Ludy Bob MD [address] [place] [address] [place] [phone] Phone: tel: fax: Referral ID Status Reason Start Date Expiration Date V isits Requested Visits Authorized [id number] Pending Review 07/28/2024 [id number] Reason for Visit * Reason Comments Follow Up Encounter Details Date Type Department Care Team (Late st Contact Info) Description 07/28/2024 10:20 AM EST Telemedicine Family Medicine [address] [place] [phone] Ludy Bob MD [address] [place] [address] [place] [phone] Benign intracranial hypertension syndrome*; Other chest pain; Chemical exposure; History of vitamin D deficiency; Hx of multiple pulmonary nodules Allergies Active Allergy Reactions Criticality Noted Date [...] Kaur Mancuso RN documented in this encounter Progress Notes * Ludy Bob MD - 07/28/2024 10:20 AM EST Images from the original note were not included. History of Present Illness Verna Mckeon is a 38 year old female that presents for Follow Up Saw NeuroSurg yesterday, they believe she has ICP again. To see a doc at [facility] for LP and treatment. Having headache. Still having chest and epigastric symptoms this round, isn't sure if they are related to the ICP oranxiety, or a separate thing. Did have bedbugs around new years, prior to a lot of these nonspecific symptoms starting. Sprayed her house with spray from the store and then called exterminators who sprayed again. Isn't sure if the chemical exposure is causing some of the chest discomfort and breathing trouble. States that her "lungs hurt" after she sprayed the house the first time. BP running normal at home, got an arm cuff. Is off of work for the meantime from her job. Reassured about pulse ox numbers. See prior email- getting numbers down to 92 sometimes when she's resting on the couch, notes slouching sometimes. Improves if she sits up. Does note a history of pulmonary nodules, review of chart shows mutiple subcentimeter nodules seen on CT in 2019. Physical Exam There were no vitals taken for this visit. Due to nature of the visit Limited physical exam due to video visit Physical Exam Constitutional: General: Pt is not in acute distress. In a dark room Appearance: Normal appearance. Pt is not ill-appearing. HENT: Head: Normocephalic and atraumatic. Neurological: Mental Status: Pt is alert and oriented to person, place, and time. Psychiatric: Mood and Affect: Mood normal. Behavior: Behavior normal. Assessment and Plan Benign intracranial hypertension syndrome Saw Neuro, they feel it may be ICP again. Will be scheduling LP to determine. Other chest pain; Chemical exposure - CT CHEST WO CONTRAST - 25-HYDROXY VITAMIN D; Future - VITAMIN B12; Future Exposure to bedbug spray and feels some of her symptoms started around then. Can check chest CT forany signs of inflammatory processes - CT CHEST WO CONTRAST - 25-HYDROXY VITAMIN D; Future History of vitamin D deficiency Check Vit D level - 25-HYDROXY VITAMIN D; Future - VITAMIN B12; Future Hx of multiple pulmonary nodules Ordered CT scan- would be low to moderate risk as she does have a brief smoking history Wrap-Up Time: I spent a total of 20-29 minutes (exact time 22 mins) on the date of service in preparation, delivery, and documentation of the care provided to Verna Mckeon excluding any time spent in the performance of separately billed services. Patient location: HOME. I was in a hospital or clinic location. After connecting through [employer],patient was verified with two unique identifiers. Patient (or authorized legal sales service representative) was then informed that this was a Telemedicine visit and being conducted confidentially over secure lines. Methods to assure confidentiality were taken. Patient acknowledged consent and understanding of pr ivacy and security of the Telemedicine visit. The patient agreed to participate. documented in this encounter Plan of Treatment Upcoming Encounters Date Type Department Care Team (Late st Contact Info) Description 10/09/2024 11:00 AM EDT Office Visit [address] [phone] Ludy Bob MD [address] [place] [address] [place] [phone] 11/23/2024 9:00 AM EDT Office Visit [address] [place] [phone] Maddison Parker PA-C [address] [place] [address] [place] [phone] 05/26/2025 9:00 AM EST Office Visit Family Medicine [address] [place] [phone] Angela Raza MD [address] [place] [address] [place] [phone] Scheduled Orders Name Type Priority Associated Diagnoses Orde r Schedule CT CHEST WO CONTRAST Medical Imaging Routine Other chest pain Chemical exposure Ordered: 07/28/2024 25-HYDROXY VITAMIN D Lab Routine Other chest pain Chemical exposure History of vitamin D deficiency Expected: 07/28/2024 (Approximate), Expires: 07/28/2025 VITAMIN B12 Lab Routine Other chest pain History of vitamin D deficiency Expected: 07/28/2024 (Approximate), Expires: 07/28/2025 Health Maintenance Due Date Last Done Comments [...] as of this encounter Visit Diagnoses Diagnosis Benign intracranial hypertension syndrome- Primary Benign intracranial hypertension Other chest pain Chemical exposure Contact with and (suspected) exposure to other potentially hazardous chemicals History of vitamin D deficiency Personal history of nutritional deficiency Hx of multiple pulmonary nodules Personal history of other diseases of respiratory system documented in this encounter Advance Directives * [...] Power of Attor wesley? No Care Teams Internet Site Designer Relationship Specialty Start Date End Date Angela Raza MD [address] [place] [address] [place] [phone] PCP - General Family Medicine 08/17/21 documented as of this encounter
--- OUTSIDE RECORDS SUMMARY | 2024-08-02 15:06 | External Medical Summary | Summary of Care ---
Author Name Unknown Organization [facility] Address [address] [place] [address] Phone [phone] Care Team Providers Care Sports Clerk Name Role Phone Angela Raza MD Primary Care Prov ider Reason for Visit * Reason Onset Date Comments Appointment 07/29/2024 CT CHEST- [facility] Encounter Details Date Type Department Care Team (Late st Contact Info) Description 07/29/2024 Telephone Family Medicine [address] [phone] Ludy Bob MD [address] [place] [address] [place] [phone] Appointment (CT CHEST- [facility]) [...] spoke to Verna she was actually at [facility] getting herlabs done. She is going to the CT dept and rescheduling the appt * Telephone Encounter - Jacob Ramirez OSA - 07/30/2024 2:04 PM EST Pt is scheduled at [facility] Saturday07/31/2024 at 10:30 am. I called pt and left message on her vm to call me back to see if appt works. * Telephone Encounter - Jacob Ramirez OSA - 07/30/2024 11:11 AM EST AUTH #[id number]. I faxed order to [facility]. I will call them to make an appt * Telephone Encounter - Jacob Ramirez OSA - 07/29/2024 12:31 PM EST Per pt wants done at [facility]. I sent email to [facility] to obtain auth. Pt aware that we willlet her know when scheduled. documented in this encounter Plan of Treatment Upcoming Encounters Date Type Department Care Team (Late st Contact Info) Description 10/09/2024 11:00 AM EDT Office Visit [address] [place] [phone] Ludy Bob MD [address] [place] [address] [place] [phone] 11/23/2024 9:00 AM EDT Office Visit [address] [place] [phone] Maddison Parker PA-C [address] [place] [address] [place] [address] 05/26/2025 9:00 AM EST Office Visit Family Medicine [address] [place] [phone] Angela Raza MD [address] [place] [address] [place] [address] Health Maintenance Due Date Last Done Comments [...] Power of Attor wesley? No Care Teams Sports Clerk Relationship Specialty Start Date End Date Angela Raza MD [address] [place] [address] [place] [phone] PCP - General Family Medicine 08/17/21 documented as of this encounter
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
--- OUTSIDE RECORDS SUMMARY | 2024-08-02 15:07 | External Medical Summary | Summary of Care ---
Author Name Unknown Organization [facility] Address [address] [place] [address] Phone [phone] Care Team Providers Care Spinner Cap Frame Name Role Phone Angela Raza MD Primary Care Prov ider Reason for Visit * Reason Onset Date Comments Medical Records Request 06/01/2024 [facility]fil ed records request Encounter Details Date Type Department Care Team (Late st Contact Info) Description 06/01/2024 Telephone Family Medicine [address] [phone] Angela Raza MD [address] [place] [id number] Medical Records Request ([facility] record... Allergies Active Allergy Reactions Criticality Noted Date [...] as of this encounter (statuses as of 07/20/2024) Medications melatonin 1 MG Tablet Take 3 Tablets by mouth at bedtime. Active Magnesium 250 MG Oral Tablet Take 1 Tablet by mouth in the morning. Active Loratadine 10 MG Oral Tablet (Claritin) Take 1 Tablet by mouth daily as needed for Rhinitis. Active OneTouch Ultra In Vitro Strip (Glucose Blood)Indicatio ns:Prediabetes, Hypoglycemia, unspecified TESTING 4-5 TIMES PER DAY 500 Strip 1 10/11/19 24 Active Tacrolimus 0.1 % External Ointment (Protopic) as needed. 12/13/19 24 Active Ozempic (0.25 or 0.5 MG/DOSE) 2 MG/3ML Solution Pen-injector (Semaglutide(0. 25 or 0.5MG/DOS))Becki cations:Morbid obesity due to excess calories (HCC),Abnormal weight gain Inject 0.5 mg under the skin once a week. 9 mL 4 8:25 AM EST 05/20/20 24 Active Clobetasol Propionate 0.05 % External SolutionIndicat ions:Psoriasis of scalp,Plaque psoriasis Apply to scalp and behind the ear one daily for up to two weeks. 50 mL 3 05/25/20 24 Active Calcipotriene 0.005 % External Cream (Calcitrene)Ind ications:Plaque psoriasis Apply topically to affected area 2 times a day. Apply to areas of plaque psoriasis 120 g 5 05/25/20 24 Active Calcipotriene 0.005 % External FoamIndications :Psoriasis of scalp Apply topically to affected area daily. Apply to scalp 120 g 5 05/25/20 24 Active Multiple Vitamins-Minera ls (MULTIPLE VIT/MINERALS/NO IRON) TABS Take 1 Tab by mouth daily. 025 Discontinued RA Vitamin D-3 25 MCG (1000 UT) Oral Tablet (Cholecalcifero l) Take 1 Tablet by mouth in the morning. 025 Discontinued documented as of this encounter (statuses as of 07/20/2024) Active Problems Problem Noted Date Diagnosed Date Body mass index (BMI) of 45.0 to [...] as of this encounter (statuses as of 07/20/2024) Resolved Problems Problem Noted Date Diagnosed Date [...] as of this encounter (statuses as of 07/20/2024) Immunizations Name Administration Dates Next Due Hepatitis [...] encounter Miscellaneous Notes * Telephone Encounter - Celina Sanders OSA - 06/01/2024 9:33 AM EST Rec's records 06-01-24 from [facility]. Auth was sent to HIM [id number] on 06-01-24. To check status of records, please call HIM directly at [phone]. documented in this encounter Plan of Treatment Upcoming Encounters Date Type Department Care Team (Late st Contact Info) Description 07/24/2024 12:00 PM EST Scheduled Telephone Ancillary [address] [place] [phone] [place], Nurse Follow Up Phone Call Schedule [address] [place] [phone] 10/09/2024 11:00 AM EDT Office Visit [address] [place] [phone] Ludy Bob MD [address] [place] [address] [place] [phone] 11/23/2024 9:00 AM EDT Office Visit [address] [place] [phone] Maddison Parker PA-C [address] [place] [address] [place] [address] 05/26/2025 9:00 AM EST Office Visit [address] [place] [phone] Angela Raza MD [address] [place] [address] [place] [phone] Health Maintenance Due Date Last Done Comments [...] Power of Attor wesley? No Care Teams Spinner Cap Frame Relationship Specialty Start Date End Date Angela Raza MD [address] [place] [address] [place] [address] PCP - General Family Medicine 08/17/21 documented as of this encounter
--- OUTSIDE RECORDS SUMMARY | 2024-08-02 15:07 | External Medical Summary | Summary of Care ---
Author Name Unknown Organization [facility] Address [address] [place] [address] Phone [phone] Care Team Providers Care Retention Manager Name Role Phone Angela Raza MD Primary Care Prov ider Reason for Visit * Reason Comments Hospital Follow-Up Encounter Details Date Type Department Care Team ([facility] st Contact Info) Description 07/20/2024 4:00 PM EST Office Visit Family Medicine [address] [phone] Ludy Bob MD [address] [place] [address] [place] [phone] Brain fog*; Atypical chest pain; Essential (primary) hypertension; DDD (degenerative disc disease), cervical; Neuropathy; Anxiety Allergies Active Allergy Reactions Criticality Noted Date [...] as of this encounter (statuses as of 07/21/2024) Medications melatonin 1 MG Tablet Take 3 Tablets by mouth at bedtime. Active Magnesium 250 MG Oral Tablet Take 1 Tablet by mouth in the morning. Active Loratadine 10 MG Oral Tablet (Claritin) Take 1 Tablet by mouth daily as needed for Rhinitis. Active OneTouch Ultra In Vitro Strip (Glucose Blood)Indication s:Prediabetes,Hy poglycemia, unspecified TESTING 4-5 TIMES PER DAY 500 Strip 1 10/11/19 24 Active Tacrolimus 0.1 % External Ointment (Protopic) as needed. 12/13/19 24 Active Ozempic (0.25 or 0.5 MG/DOSE) 2 MG/3ML Solution Pen-injector (Semaglutide(0.2 5 or 0.5MG/DOS))Indic ations:Morbid obesity due to excess calories (HCC),Abnormal weight gain Inject 0.5 mg under the skin once a week. 9 mL 4 8:25 AM EST 05/20/20 24 Active Clobetasol Propionate 0.05 % External SolutionIndicati ons:Psoriasis of scalp,Plaque psoriasis Apply to scalp and behind the ear one daily for up to two weeks. 50 mL 3 05/25/20 24 Active Calcipotriene 0.005 % External Cream (Calcitrene)Becki cations:Plaque psoriasis Apply topically to affected area 2 times a day. Apply to areas of plaque psoriasis 120 g 5 05/25/20 24 Active Calcipotriene 0.005 % External FoamIndications: Psoriasis of scalp Apply topically to affected area daily. Apply to scalp 120 g 5 05/25/20 24 Active Betamethasone Dipropionate 0.05 % External Cream (Diprosone) Apply topically to affected area 2 times a day. To affected area. 45 g 3 06/01/20 24 Active Fluticasone Propionate 50 MCG/ACT Nasal Suspension (Flonase)Indicat ions:Sinus congestion Administer 2 Sprays into each nostril in the morning. 16 g 5 07/16/19 25 Active Escitalopram Oxalate 10 MG Oral Tablet (Lexapro)Indicat ions:Anxiety,Uriel atoform disorder TAKE 1 TABLET BY MOUTH EVERY DAY IN THE MORNING 90 Tablet 3 07/17/19 25 Active Multiple Vitamins-Mineral s (MULTIPLE VIT/MINERALS/NO IRON) TABS Take 1 Tab by mouth daily. 025 Discontinued RA Vitamin D-3 25 MCG (1000 UT) Oral Tablet (Cholecalciferol ) Take 1 Tablet by mouth in the morning. 025 Discontinued documented as of this encounter (statuses as of 07/21/2024) Active Problems Problem Noted Date Diagnosed Date [...] as of this encounter (statuses as of 07/21/2024) Resolved Problems Problem Noted Date Diagnosed Date [...] as of this encounter (statuses as of 07/21/2024) Immunizations Name Administration Dates Next Due Hepatitis [...] Sign Reading Time Taken Comments Blood Pressure 130/100 07/20/2024 3:47 PM EST Pulse 94 07/20/2024 3:47 PM EST Temperature 35.8 C (96.4 F) 07/20/2024 3:47 PM ES T Respiratory Rate - - Oxygen Saturation 94% 07/20/2024 3:47 PM EST Inhaled Oxygen Concentration - - Weight 119.2 kg (262 lb 11.2 oz) 07/20/2024 3:47 PM EST Height 156.8 cm (5' 1.75") 07/20/2024 3:47 PM ES T Body Mass Index 48.44 07/20/2024 3:47 PM EST documented in this encounter Functional [...] Progress Notes * Ludy Bob MD - 07/20/2024 3:57 PM EST Images from the original note were not included. History of Present Illness Verna Mckeon is a 38 year old female that presents for Hospital Follow-Up History of Present Illness The patient, with a history of hypertension and anxiety, presents with a worsening health conditionover the past two weeks. She reports chest pain, a sensation of disconnectedness, pressure in the eyes, and tinnitus. She also describes a surreal feeling, as if in a dream, and a sensation of abnormal blood circulation. She has noticed her lower legs turning blue/purple and her feet are persistently cold. She also reports a loss of appetite, resulting in a weight loss of ten pounds since the last visit. Has been tested for flu and covid, negative. Told it was a viral syndrome. Denies fevers The patient's blood pressure has been high during the visit, but she reports normal readings at home. She has increased her anxiety medication dosage from 5mg to 10mg without any noticeable improvement. She denies any improvement after stopping clindamycin, which was previously suspected to be causing side effects. The patient also reports a stiff neck and has been diagnosed with multiple bulging discs and degenerative disc disease following an MRI. She is scheduled to see a neurosurgeon for further evaluation.She also reports feeling hot and sweating all the time. Physical Exam BP 130/100 | Pulse 94 | Temp 96.4 F (35.8 C) (Infrared ) | Ht 5' 1.75" (1.568 m) | Wt 262 lb 11.2 oz (119.2 kg) | SpO2 94% | BMI 48.44 kg/m | BSA 2.28 m Physical Exam Vitals and nursing note reviewed. Constitutional: General: She is not in acute distress. Appearance: She is ill-appearing. She is not toxic-appearing. HENT: Head: Normocephalic and atraumatic. Cardiovascular: Rate and Rhythm: Normal rate and regular rhythm. Pulmonary: Effort: Pulmonary effort is normal. Breath sounds: Normal breath sounds. Feet: Comments: Bilateral feet with some mottling and cool to touch, but good cap refill and normal pulses bilaterally Neurological: Mental Status: She is alert. Limited exam done secondary to patient deciding to go to the hospital I have reviewed most recent labs CBC, CMP from hospital; MRI head, CT head Assessment and Plan Assessment & Plan Unexplained Multisystem Symptoms; suspect viral illness Unclear cause, multiple vague symptoms. The patient reports worsening chest pain, head fog, tinnitus, altered sensation, and weight loss over the past two weeks with no clear etiology identified. Blood pressure is elevated in the office, though normal per her cuff at home. Increased anxiety medication has not improved symptoms. At this time, I recommended additional labs including monospot, possible viral panel and initiationof BP medication. Patient is concerned that that is not the issue, and states that she doesn't feelsafe to be a home feeling as she does, so I recommended evaluation in the ED Hypertension Blood pressure is elevated in the office but normal at home, consistently high in the office and EDvisits through Jun to now. There is a history of intolerance to metoprolol and Cardizem. I recommended starting a low dose of medication at this time as she's had multiple elevated pressures here andthe ED and uncontrolled BP may be causing some of the symptoms. She does not feel this is the problem and declines medication at this time due to issues with BP meds in the past. Cervical Disc Disease MRI shows multiple bulging discs and degenerative disc disease. States she has an appt with Neurosurg to address after the acute illness is resolved Anxiety Anxiety has increased despite a higher medication dose. May need medication change in the future ifnot improving. Brain fog Atypical chest pain Essential (primary) hypertension DDD (degenerative disc disease), cervical Neuropathy Anxiety Wrap-Up Follow Up: Return for after hospital evaluation. | For: after hospital evaluation Time: I spent a total of 20-29 minutes (exact time 27 mins) on the date of service in [...] Nursing Notes * Radha Mix CMA - 07/20/2024 3:47 PM EST ER f/u Pt reports feels like she is dying, chest hurt, head has a lot of pressure, eyes have pressure/pain, feet have been getting cold and turning blue, no appetite, pulse ox dropped into the high 80s yesterday a stayed there for 2-3 minutes. But does not report any episodes of SOB. documented in this encounter Plan of Treatment Upcoming Encounters Date Type Department Care Team (Late st Contact Info) Description 07/21/2024 2:00 PM EST Office Visit [address] [phone] Ludy Bob MD [address] [place] [address] [place] [phone] 07/24/2024 12:00 PM EST Scheduled Telephone Ancillary [address] [place] [id number] Hoang, Nurse Follow Up Phone Call Schedule [address] [place] [phone] 10/09/2024 11:00 AM EDT Office Visit [address] [place] [phone] Ludy Bob MD [address] [place] [address] [place] [phone] 11/23/2024 9:00 AM EDT Office Visit [address] [place] [phone] Maddison Parker PA-C [address] [place] [address] [place] [id number] 05/26/2025 9:00 AM EST Office [place] [address] [place] [phone] Angela Raza MD [address] [place] [address] [place] [phone] Health Maintenance Due Date Last Done Comments [...] as of this encounter Visit Diagnoses Diagnosis Brain fog- Primary Atypical chest pain Other chest pain Essential (primary) hypertension Unspecified essential hypertension DDD (degenerative disc disease), cervical Degeneration of cervical intervertebral disc Neuropathy Mononeuritis of unspecified site Anxiety Anxiety state, unspecified documented in this encounter Advance Directives * [...] Power of Attor wesley? No Care Teams Retention Manager Relationship Specialty Start Date End Date Angela Raza MD [address] [place] [address] [place] [id number] PCP - General Family Medicine 08/17/21 documented as of this encounter
--- OUTSIDE RECORDS SUMMARY | 2024-08-02 15:07 | External Medical Summary | Summary of Care ---
Author Name Unknown Organization [facility] Address [address] [place] [address] Phone [phone] Care Team Providers Care Electronic Semiconductor Processor Name Role Phone Angela Raza MD Primary Care Prov ider Reason for Visit * Reason Comments Emergency Department Follow-Up Encounter Details Date Type Department Care Team ([facility] st Contact Info) Description 07/21/2024 2:00 PM EST Office Visit Family Medicine [address] [phone] Ludy Bob MD [address] [place] [address] [place] [phone] Inner ear inflammation, unspecified laterality*; Prolonged [...] has history of high heart and her custom seamstress told her to look out forit a couple of years go. Pt did go back to 5mg of lexapro and reports head does feel some better today documented in this encounter Miscellaneous Notes * Pt Handout (on AVS) - Ludy Bob MD - 07/21/2024 1:49 PM EST Images from the original note were not included. [id number] Labyrinthitis Labyrinthitis is the inflammation of part [...] when walking Nausea and vomiting Trouble concentrating [id number] eye movements that you can't control (nystagmus) [...] New symptoms Last Reviewed Date: 2022 00:00:00 [id number] [employer]. All rights reserved. This information is not intended as a substitute for professional medical care. Always follow your healthcare professional's instructions. documented in this encounter Plan of Treatment Upcoming Encounters Date Type Department Care Team (Late st Contact Info) Description 10/09/2024 11:00 AM EDT Office Visit [address] [place] [phone] Ludy Bob MD [address] [place] [address] [place] [phone] 11/23/2024 9:00 AM EDT Office Visit [address] [phone] Maddison Parker PA-C [address] [place] [address] [place] [id number] 05/26/2025 9:00 AM EST Office Visit [address] [place] [phone] Angela Raza MD [address] [place] [address] [place] [phone] Health Maintenance Due Date Last Done Comments [...] Cancer Screening 07/02/2025 Pap Smear 07/02/2025 07/02/2022, 1209/2017, 11/03/2012, Additional history exists GFR 07/14/2025 07/14/2024, [...] PM EST Narrative Procedure Note Helio Marquez O, DO - 07/21/2024 1:58 PM EST REASON FOR STUDY: QTc prolongation in ED;QTc prolongation in ED CONCLUSIONS: Normal sinus rhythm Cannot rule out Anterior infarct , age undetermined Abnormal ECG When compared with ECG of 27-Jul-2021 16:27, RSR' pattern in V1 is no longer Present Ventricular Rate: 84 Atrial Rate: 84 TN Interval: 168 QRS Duration: 74 QT/QTc: 404/477 ms P-R-T [place]: 34 : 35 : 41 degrees Ludy Segovia MD EKG Final Result [facility] documented in this encounter Visit Diagnoses [...] Power of Attor wesley? No Care Teams Electronic Semiconductor Processor Relationship Specialty Start Date End Date Angela Raza MD [address] [place] [address] [place] [id number] PCP - General Family Medicine 08/17/21 documented as of this encounter
[2024-08-02 15:40] LABS: Basophils # (auto) 0.03 K/uL (0.00-0.20); Basophils % (auto) 0.3 %; Eosinophils # (auto) 0.29 K/uL (0.00-0.50); Eosinophils % (auto) 2.9 %; Hematocrit (blood only) 40.9 % (37.0-47.0); Hemoglobin 13.2 g/dl (12.0-16.0); Immature Granulocytes # (auto) 0.04 K/uL (0.01-0.20); Immature Granulocytes % (auto) 0.4 %; Lymphocytes # (auto) 2.58 K/uL (1.20-3.40); Lymphocytes % (auto) 25.7 %; Mean Corpuscular Hemoglobin 28.6 pg (25.0-34.0); Mean Corpuscular Hgb Conc 32.3 g/dL (32.0-36.0); Mean Corpuscular Volume 88.7 fL (80.0-100.0); Mean Platelet Volume 9.6 fL (9.4-12.4); Monocytes # (auto) 0.39 K/uL (0.11-0.59); Monocytes % (auto) 3.9 %; Neutrophils # (auto) 6.71 K/uL (1.40-6.50); Neutrophils % (auto) 66.8 %; Platelet Count 298 K/uL (130-400); RDW Coefficient of Variation 13.5 % (11.5-14.5); RDW Standard Deviation 43.3 fL (36.4-46.3); Red Blood Count 4.61 M/uL (4.20-5.40); White Blood Count 10.04 K/ul (4.8-10.8)
[2024-08-02 15:50] LABS: INR 0.9 (0.9-1.1); Partial Thromboplastin Ratio 1.1; Partial Thromboplastin Time 29 Seconds (21-31); Prothrombin Time 10.1 Seconds (9.0-12.0)
[2024-08-02 15:59] LABS: Albumin Globulin Ratio 1.1 (0.9-2); Albumin Level 4.1 gm/dl (3.4-5.0); BUN Creatinine Ratio 17.5 (10-20); Bilirubin,Total 0.3 mg/dl (0.2-1.0); Calcium 9.5 mg/dl (8.6-10.3); Creatinine Clr Calc Pharmacy 152.3 ml/min; Globulin 3.7 gm/dl (2.5-4.0); Total Protein 7.8 gm/dl (6.0-8.3)
[2024-08-02 16:15] LABS: Influenza A virus by PCR Negative (Neg); Influenza B virus by PCR Negative (Neg); RSV by PCR Negative (Neg); SARS CoV2 RNA(COVID-19) Ceph NEGATIVE (Negative)
--- NOTE | 2024-08-02 16:58 | Emergency Department Note ---
Impression & Plan Headache, Dizziness ED Provider Note ED Provider Note NAME: NIRANJAN ROBLES AGE:38 SEX: Female : 1985 ARRIVES VIA: Private vehicle INFORMANT: Patient ED PROVIDER(s): Ivy Prescott DO CHIEF COMPLAINT: Headache, dizziness, paresthesia HPI: This is a 38-year-old female who presents emergency room due to concern for persistent headaches, dizziness, and now with accompanying paresthesias. She states symptoms began 3 weeks ago. She states she saw her PCP and was referred to ophthalmology due to accompanying vision changes. She was told her exam was reassuring. She was then sent to ENT as well as cardiology and is still wearing a heart monitor. She states an appointment was made with neurology whom she has seen before, Dr. Braxton. She states the appointment though was not for another several weeks. She was concerned as her symptoms continued to worsen and today she had accompanying tingling in the bilateral face. She denies any recent trauma or change in activity. No recent fevers, chills, or URI symptoms. She denies any change in medications. Patient states she does have a history of intracranial hypertension and was previously treated with Diamox several years ago. She states headaches are frontal, retro-orbital, and occipital. No difficulty speaking, no extremity involvement. She is light sensitive and noise sensitive. She states she intermittently notices spots in her vision. She states many years ago they thought her headaches were related to migraines as there is a family history of migraines however she states she was tried on multiple migraine medications without any improvement. PAST MEDICAL HISTORY:See Below PAST SURGICAL HISTORY:See Below FAMILY HISTORY:See Below SOCIAL HISTORY:See Below HOME MEDICATIONS:See Below ALLERGIES:See Below VITALS:See Below PHYSICAL EXAMINATION: GENERAL: alert, well appearing, well nourished, no distress, non-toxic, BMI 48 EYE EXAM: normal conjunctiva, PERRL and EOM's grossly intact OROPHARYNX: no exudate, no erythema, lips, buccal mucosa, and tongue normal and mucous membranes are moist NECK: supple, no nuchal rigidity, no adenopathy, non-tender LUNGS: Clear to auscultation. Normal chest wall mechanics, no w/r/r HEART: no murmurs, S1 normal and S2 normal ABDOMEN: abdomen soft, non-tender, normo-active bowel sounds, no masses, no rebound or guarding. SKIN: no rashes, petechiae, orbruising UPPER EXTREMITIES: upper extremities are grossly normal. FROM, nml pulses b/l. LOWER EXTREMITIES: No pitting edema. FROM, nml pulses b/l. NEURO EXAM: Normal sensorium, cranial nerves II-XII grossly intact, normal speech, no facial droop,nogross weakness of arms, no gross weakness of legs. Gross sensation intact. No ataxia. Vital Signs: reviewed and remarkable Differential Diagnosis: headache, tension headache, cluster headache, migraine, subarachnoid hemorrhage, meningitis, mass, central venous thrombus, concussion, trauma and epidural/subdural hemorrhage. MEDICAL DECISION MAKING: This is a 38-year-old female with a complicated neurologic history who presents emerged department due to 3 weeks of worsening headaches, dizziness, now with accompanying facial tingling. Patient was afebrile and hemodynamically stable here. Labs drawn and sent, IV established, EKG performed at bedside interpreted by me and patient monitored on telemetry. I did initially reach out to on-call [facility] neurology as patient follows with Dr. Braxtno who recommended a dose of Solu-Medrol here and outpatient follow-up. Patient continued to complain of symptoms and was given additional IV Tylenol, IV Compazine, IV Benadryl, and a liter of IV fluids. Patient continued to complain of persistent severe headache and stated that the dizziness was so bad she felt she was at risk of falling if she could not get out of bed and cannot safely walk without assistance at home. After further discussion at bedside, case discussed with [facility] team for additional evaluation and management. Patient did just have MRI brain and MRI C-spine performed in June at an outside facility and is able to show these results on her phone via the portal. MRI brain at that time was reassuring. Consultation(s): 1709: Discussed with Dr. Nuñez, neurology. Does not feel patient requires urgent MRI/MRI or urgent LP. Could be given Solu-Medrol 250 mg IV and close follow-up performed as an outpatient. 2039: Discussed with Dr. Lozano, [facility] hospitalist team, for additional evaluation and management. ER Treatment Provided: See below Diagnostics Interpreted By Me: -ECG: Normal sinus at 91, normal axis, normal intervals, no acute ST/T wave changes -Cardiac Monitoring: An order was placed for continuous cardiac monitoring. The monitor shows a rate of 90 with normal sinus rhythm. -Laboratory studies: As stated above and show below. Triage Nursing Note Reviewed Prior/Outside Records Reviewed -reviewed neurology consult in progress note from August [address] Fay and Dr. Braxton Past Med/Surg History Problem List (Updated 08/02/24 @ 20:42 by Ivy Prescott, DO) Dizziness (Acute) Headache (Acute) Blood glucose elevated (Acute) Headache (Acute) Chest pain (Acute) Vivid dream Somatic symptom disorder Chest pain (Acute) Pseudotumor cerebri (Acute) Dermatomyositis Small fiber neuropathy Headache Hypokalemia Persistent postural-perceptual dizziness Idiopathic intracranial hypertension Sinus tachycardia Palpitations Chest pain (Acute) POTS (postural orthostatic tachycardia syndrome) (Acute) Epigastric abdominal pain (Acute) Weakness (Acute) Change in mental status POTS (postural orthostatic tachycardia syndrome) (Acute) DVT (deep vein thrombosis) in Seizure-like activity Paresthesia Severe uncontrolled hypertension Vision changes High cholesterol GERD (gastroesophageal reflux disease) Anxiety and depression History of bulimia Insomnia Vitamin D deficiency Seasonal allergies Vitamin B12 deficiency Migraine Ankylosing spondylitis Degenerative disc disease Exercise-induced asthma Morbid obesity Thoracic disc disease Dysphagia Prediabetes Eustachian tube dysfunction Near syncope Inappropriate sinus tachycardia Abnormal EEG Hypersomnia Dietary counseling and surveillance Metabolic syndrome Pericarditis Medical History Abnormal EEG Ankylosing spondylitis Anxiety and depression Change in vision Chest pain Chest pain COVID-19 Degenerative disc disease Dizziness DVT (deep venous thrombosis) Eustachian tube dysfunction Fatigue GERD (gastroesophageal reflux disease) Headache Heart palpitations High cholesterol History of bradycardia History of bulimia History of pre-eclampsia Insomnia Iron deficiency anemia Migraine Morbid obesity with BMI of 40.0-44.9, adult Seasonal allergies Thoracic disc disease Vitamin B12 deficiency Vitamin D deficiency Surgical History History of cardiac cath 06/2015 @ [facility] [place]--d/t chest pain, normal no stents History of cholecystectomy History of esophagogastroduodenoscopy (EGD) History of wisdom tooth extraction Family History (System 10/17/22 @ 08:26 by Sophia Benavidez) Father Hypertension Mother Diabetes Grandfather (Maternal) Diabetes Coronary heart disease Myocardial infarction Congestive heart failure Colorectal cancer Grandfather (Paternal) Diabetes Coronary heart disease Myocardial infarction, Onset Age: 50 Grandmother (Paternal) Pulmonary emphysema Sick sinus syndrome Diabetes Pacemaker Grandmother (Maternal) Family history of diabetes mellitus Aunt Pulmonary emphysema Family/Other Myocardial infarction, Onset Age: 37 Coronary heart disease Uncle Stroke Other Asthma Lymphoma No family history of adverse response to anesthesia Denies family history of Ovarian cancer Prostate cancer Breast cancer Social History (System 10/17/22 @ 08:26 by Sophia Benavidez) Smoking Status: Never smoker Tobacco Type: Cigarettes Second Hand Exposure: No; Do You Dip or Chew Tobacco: No; Hx Alcohol Use: No Hx Substance Use: No Preferred Language: Yi Communication Ability: Effective Communication Tools: Other Visual Impairment: No Limitations Hearing Ability: Normal Hide And Skin Classer Required: No Beliefs That Will Affect Care: None marital status: Current Living Situation: Spouse and Family Current Living Situation Comment: Lives with and daughter current occupational status: unemployed How many Children do You have: 1 Feels Safe at Home: Yes Childhood Exposure to Second-Hand Smoke: Yes Diet: regular caffeine: No during the past year weight has: remained stable Dental Care, Regularly: Yes Physical Activity Frequency: 5-6 Times per Week Seatbelt Use: never Sunscreen Use: Yes Assistive Devices: Wheelchair Allergies Allergies Allergy/AdvReac Type Severity Reaction Status Date / Time amoxicillin Allergy Severe ANAPHYLAXIS Verified 05/13/23 14:13 clavulanic acid Allergy Severe ANAPHYLAXIS Verified 05/13/23 14:13 Iodinated Contrast Media Allergy Severe Hives, Verified 05/13/23 14:13 tongue swelling doxycycline Allergy Intermediate Rash Verified 05/13/23 14:13 egg Allergy Intermediate Hives Verified 05/13/23 14:13 fish derived Allergy Intermediate Hives Verified 05/13/23 14:13 metronidazole Allergy Intermediate rash Verified 05/13/23 14:13 sulfamethoxazole Allergy Intermediate tongue Verified 05/13/23 14:13 [From Bactrim] swelling trimethoprim [From Bactrim] Allergy Intermediate tongue Verified 05/13/23 14:13 swelling coffee (Coffea arabica) Allergy Unknown per Verified 05/13/23 14:13 allergy testing Penicillins Allergy Unknown per Verified 05/13/23 14:13 allergy testing Home Meds Home Medications Medication Instructions Recorded Confirmed loratadine 10 mg tablet (Claritin) 10 mg PO HS Congestion 03/21/20 08/02/24 melatonin 5 mg tablet 5 mg PO HS Sleep 10/12/21 08/02/24 cholecalciferol (vitamin D3) 25 25 mcg PO DAILY 08/02/24 08/02/24 mcg (1,000 unit) capsule (Vitamin D3) escitalopram oxalate 10 mg tablet 5 mg PO PM 08/02/24 08/02/24 fluticasone propionate 50 2 spray intranasal QAM PRN 08/02/24 08/02/24 mcg/actuation nasal Congestion spray,suspension tacrolimus 0.1 % topical ointment 1 applic topical BID PRN Other 08/02/24 08/02/24 Previous Rx's Medication Instructions Recorded betamethasone dipropionate 0.05 % 1 applic topical BID #60 mL 05/13/23 lotion clobetasol 0.05 % topical ointment 1 applic topical BID #30 grams 07/04/23 Results & Data (ED) Vital Signs Vital Signs - 24 hr 08/02/24 15:03 08/02/24 16:06 08/02/24 16:31 Temperature 36.5 C Temperature Source Temporal Artery Scan Pulse Rate 100 H 87 Pulse Rate [Apical] 90 Respiratory Rate 20 14 Respiratory Effort / Characteristics Non-Labored Spontaneous Blood Pressure 152/114 H Blood Pressure [Right Arm] 150/105 H Blood Pressure Mean 126 Blood Pressure Mean [Right Arm] 120 Blood Pressure Position [Right Arm] Lying Pulse Oximetry 95 97 Oxygen Delivery Method Room Air Room Air Sepsis Recent Fever Within 48 Hours No Sepsis New/Unexplained Change in Mental Status N/A Sepsis Action Taken by Nursing No Action Required 08/02/24 18:00 08/02/24 19:00 08/02/24 20:30 Temperature Temperature Source Pulse Rate 94 H 94 H Pulse Rate [Apical] 98 H Respiratory Rate 18 18 18 Respiratory Effort / Characteristics Non-Labored Spontaneous Blood Pressure 143/100 H Blood Pressure [Right Arm] 151/102 H Blood Pressure Mean 114 Blood Pressure Mean [Right Arm] 118 Blood Pressure Position [Right Arm] Lying Pulse Oximetry 94 96 96 Oxygen Delivery Method Room Air Sepsis Recent Fever Within 48 Hours Sepsis New/Unexplained Change in Mental Status Sepsis Action Taken by Nursing 08/02/24 20:38 08/02/24 20:45 08/02/24 22:30 Temperature Temperature Source Pulse Rate 95 H 98 H 94 H Pulse Rate [Apical] Respiratory Rate 18 18 Respiratory Effort / Characteristics Blood Pressure 153/92 H 156/108 H Blood Pressure [Right Arm] Blood Pressure Mean 112 120 Blood Pressure Mean [Right Arm] Blood Pressure Position [Right Arm] Pulse Oximetry 92 96 Oxygen Delivery Method Sepsis Recent Fever Within 48 Hours Sepsis New/Unexplained Change in Mental Status Sepsis Action Taken by Nursing Laboratory Data 08/02/24 15:27 08/02/24 15:27 Lab Results 08/02/24 08/02/24 08/02/24 Range/Units 15:27 15:29 15:50 WBC 10.04 (4.8-10.8) K/ul RBC 4.61 (4.20-5.40) M/uL Hgb 13.2 (12.0-16.0) g/dl Hct 40.9 (37.0-47.0) % MCV 88.7 (80.0-100.0) fL MCH 28.6 (25.0-34.0) pg MCHC 32.3 (32.0-36.0) g/dL RDW Std Deviation 43.3 (36.4-46.3) fL RDW Coeff of Yash 13.5 (11.5-14.5) % Plt Count 298 (130-400) K/uL MPV 9.6 (9.4-12.4) fL Immature Gran % (Auto) 0.4 % Neut % (Auto) 66.8 % Lymph % (Auto) 25.7 % Russell % (Auto) 3.9 % Eos % (Auto) 2.9 % Baso % (Auto) 0.3 % Neut # (Auto) 6.71 H (1.40-6.50) K/uL Lymph # (Auto) 2.58 (1.20-3.40) K/uL Russell # (Auto) 0.39 (0.11-0.59) K/uL Eos # (Auto) 0.29 (0.00-0.50) K/uL Baso # (Auto) 0.03 (0.00-0.20) K/uL Immature Gran # (Auto) 0.04 (0.01-0.20) K/uL PT 10.1 (9.0-12.0) Seconds INR 0.9 (0.9-1.1) APTT 29 (21-31) Seconds PTT Ratio 1.1 Sodium 136 (136-145) mmol/L Potassium 4.0 (3.5-5.1) mmol/L Chloride 104 (98-107) mmol/L Carbon Dioxide 25 (21-32) mmol/L Anion Gap 7 (3-11) BUN 11 (6-23) mg/dl Creatinine 0.63 (0.6-1.2) mg/dl Est Cr Clr Drug Dosing 152.3 ml/min eGFR 117.83 BUN/Creatinine Ratio 17.5 (10-20) Glucose 105 H (70-99(Fasting)) mg/dl Calcium 9.5 (8.6-10.3) mg/dl Total Bilirubin 0.3 (0.2-1.0) mg/dl AST 14 (13-39) U/L ALT 14 (7-52) U/L Alkaline Phosphatase 111 H (34-104) U/L Troponin I High Sens 3.0 (0-14) pg/ml Total Protein 7.8 (6.0-8.3) gm/dl Albumin 4.1 (3.4-5.0) gm/dl Globulin 3.7 (2.5-4.0) gm/dl Albumin/Globulin Ratio 1.1 (0.9-2) POC Ur Test NEG (NEG) SARS-CoV-2 (PCR) NEGATIVE (Negative) Influenza Type A (PCR) Negative (Neg) Influenza Type B (PCR) Negative (Neg) RSV (RT-PCR) Negative (Neg) Administered Medications Sodium Chloride (Nss) 1,000 mls @ 250 mls/hr IV .Q4H ANNA Stop: 08/03/24 17:29 Last Admin: 08/02/24 22:05 Dose: 250 mls/hr Documented By: Infusion: 08/02/24 22:04 Dose: Infused Documented By: Admin: 08/02/24 17:48 Dose: 250 mls/hr Documented By: SEBASTIAN Discontinued Medications Diazepam (Diazepam 5 Mg/Ml 10ml Vial) 1 mg IV NOW STA Stop: 08/02/24 19:25 Last Admin: 08/02/24 19:53 Dose: Not Given Documented By: ESME Diphenhydramine HCl (Diphenhydramine 50 Mg/Ml Vial) 12.5 mg IV NOW STA Stop: 08/02/24 17:21 Last Admin: 08/02/24 17:52 Dose: 12.5 mg Documented By: SEBASTIAN Acetaminophen (Ofirmev) 1,000 mg in 100 mls @ 400 mls/hr IV NOW STA Stop: 08/02/24 17:32 Last Infusion: 08/02/24 18:59 Dose: Infused Documented By: Admin: 08/02/24 17:57 Dose: 400 mls/hr Documented By: SEBASTIAN Prochlorperazine (Compazine) 1 mls @ 1 mls/min IV ONE ONE Stop: 08/02/24 17:21 Last Admin: 08/02/24 17:54 Dose: 1 mls/min Documented By: SEBASTIAN Methylprednisolone (Methylprednisolone 125 Mg/2 Ml Vial) 250 mg IV NOW STA Stop: 08/02/24 17:19 Last Admin: 08/02/24 17:48 Dose: 250 mg Documented By: SEBASTIAN Discharge Plan Visit Data Chief Complaint: TIA Symptoms Stated Complaint: DIZZY, SPOTTY VIS, HEAD PRESSURE, HANDS/FACE NUMB ED Provider: Ivy Prescott Discharge Problem: Headache, Dizziness Forms Stand Alone Forms: [facility] Prescriptions Prescriptions: No Action clobetasol 0.05 % ointment 1 applic topical BID Qty: 30 0RF Rx Instructions: Apply to areas of the extremities twice daily x 2 weeks as directed. loratadine [Claritin] 10 mg tablet 10 mg PO HS betamethasone dipropionate 0.05 % lotion 1 applic topical BID Qty: 60 1RF Rx Instructions: Apply to areas of the scalp twice daily x 2 weeks as directed for flaring. melatonin 5 mg Tablet 5 mg PO HS fluticasone propionate 50 mcg/actuation spray,suspension 2 spray INTRANASAL QAM PRN (Reason: Congestion) cholecalciferol (vitamin D3) [Vitamin D3] 25 mcg (1,000 unit) Capsule 25 mcg PO DAILY escitalopram oxalate 10 mg tablet 5 mg PO PM tacrolimus 0.1 % ointment 1 applic topical BID PRN (Reason: Other) Rx Instructions: Apply to areas of the eyelids twice daily as directed. Referrals Referrals: Angela Thomas MD [Primary Care Provider] -
[2024-08-02] MEDS: SODIUM CHLORIDE 0.9% 1,000 ML IV SCH (17:48)
[2024-08-02] MEDS: methylPREDNISolone 125 MG/2 ML VIAL IV STA (17:48)
[2024-08-02] MEDS: diphenhydrAMINE 50 MG/ML VIAL IV STA (17:52)
[2024-08-02] MEDS: PROCHLORPERAZINE 1 ML IV ONE (17:54)
[2024-08-02] MEDS: ACETAMINOPHEN 1,000 MG/100 ML VIAL IV STA (17:57)
[2024-08-02] MEDS: diazePAM 5 MG/ML 10ML VIAL IV STA (19:53)
[2024-08-03] MEDS ORDERED: NITROGLYCERIN SL 0.4 MG/TAB TAB SL PRN (01:01)
[2024-08-03] MEDS ORDERED: PROMETHAZINE 12.5 MG/50.5 ML BAG IV PRN (01:01)
[2024-08-03] MEDS ORDERED: FLUTICASONE PROPIONATE NA SPR 16 GM BTL PRN (01:01)
[2024-08-03] MEDS ORDERED: ACETAMINOPHEN 325 MG TAB PO PRN (01:01)
[2024-08-03] MEDS ORDERED: POLYETHYLENE (MIRALAX) 17 GM PACK PO PRN (01:01)
[2024-08-03] MEDS: SODIUM CHLORIDE 0.9% 1,000 ML IV SCH (01:11)
--- NOTE | 2024-08-03 07:46 | History & Physical Report ---
Date of Service August 02, 2024 Assessment & Plan (1) Headache: Plan: 38-year-old female with past medical significant for hyperglycemia, insulin resistance, mild intermittent asthma, seasonal allergies rhinitis, palpitation, hypertension, prolonged QT, morbid obesity, GERD, vitamin D deficiency, fibromyalgia, history of viral warts, degenerative disc disease, plaque psoriasis, atypical chest pain, atypical migraine, depression, insomnia, dizziness, generalized anxiety disorder presents with severe headaches and dizziness. Patient having these headaches going on for some time. Symptoms began about 3 weeks ago. Because of some vision changes she was referred to ophthalmology. Recently seen by ophthalmology seems no papilledema seen. She was also having fullness in the ears seen by ENT. Her Lexapro dose was increased to 10 mg for anxiety but patient says she had QT prolongation and the dose was cut back to 5 mg . Saw cardiology and was placed on heart monitor. She has appointment with neurology in 2 weeks. But as symptoms are getting wor se she came to ER today. Today she also had bilateral face tingling and tingling in the hands. Currently tingling is much improved per Patient.-Having severe headache in the frontal region, retro-orbital region and occipital region. Lights and sounds are bothering her. Denies any fevers. No chest pain. No shortness of breath. No cough. Has some nausea. No abdominal pain. Normal bowel and bladder movements. She has history of intracranial hypertension and was previous treated with Diamox several years ago. Currently hemodynamics are okay. Headaches Dizziness Going on for some time Today also had some tenderness in the face and hands which are improving now ER discussed with the neurology on-call. Recommended IV Solu-Medrol 250 mg and to follow as outpatient but patient was not comfortable.. Received Solu-Medrol. Valium. Benadryl. History of intracranial hypertension Pain control Neurology consult in a.m. for further recommendation History of prolonged QT Avoid QT prolonging drugs Heart monitor placed by cardio Follow-up with cardiology Morbid obesity Needs counseling Depression On Lexapro DVT prophylaxis SCDs for now Disposition Telemetry Full code History of Present Illness Chief Complaint: Headaches Primary Care Provider: Angela Thomas MD 38-year-old female with past medical significant for hyperglycemia, insulin resistance, mild intermittent asthma, seasonal allergies rhinitis, palpitation, hypertension, prolonged QT, morbid obesity, GERD, vitamin D deficiency, fibromyalgia, history of viral warts, degenerative disc disease, plaque psoriasis, atypical chest pain, atypical migraine, depression, insomnia, dizziness, generalized anxiety disorder presents with severe headaches and dizziness. Patient having these headaches going on for some time. Symptoms began about 3 weeks ago. Because of some vision changes she was referred to ophthalmology. Recently seen by ophthalmology seems no papilledema seen. She was also having fullness in the ears seen by ENT. Her Lexapro dose was increased to 10 mg for anxiety but patient says she had QT prolongation and the dose was cut back to 5 mg . Saw cardiology and was placed on heart monitor. She has appointment with neurology in 2 weeks. But as symptoms are getting worse she came to ER today. Today she also had bilateral face tingling and tingling in the hands. Currently tingling is much improved per Patient.-Having severe headache in the frontal region, retro-orbital region and occipital region. Lights and sounds are bothering her. Denies any fevers. No chest pain. No shortness of breath. No cough. Has some nausea. No abdominal pain. Normal bowel and bladder movements. She has history of intracranial hypertension and was previous treated with Diamox several years ago. Currently hemodynamics are okay. Past medical history. As mentioned above Past surgical history. Cardiac cath. Dental surgery. EGD. Laparoscopic cholecystectomy. Social history. Quit smoking 2007. Smoked 0.1 pack a day for 1 year. Currently not drinking alcohol. No drug use. Family history. Mother has diabetes. Hypertension. Psoriasis. Father has psoriasis. Hypertension. Allergies Allergy/AdvReac Type Severity Reaction Status Date / Time amoxicillin Allergy Severe ANAPHYLAXIS Verified 05/13/23 14:13 clavulanic acid Allergy Severe ANAPHYLAXIS Verified 05/13/23 14:13 Iodinated Contrast Media Allergy Severe Hives, Verified 05/13/23 14:13 tongue swelling doxycycline Allergy Intermediate Rash Verified 05/13/23 14:13 egg Allergy Intermediate Hives Verified 05/13/23 14:13 fish derived Allergy Intermediate Hives Verified 05/13/23 14:13 metronidazole Allergy Intermediate rash Verified 05/13/23 14:13 sulfamethoxazole Allergy Intermediate tongue Verified 05/13/23 14:13 [From Bactrim] swelling trimethoprim [From Bactrim] Allergy Intermediate tongue Verified 05/13/23 14:13 swelling coffee (Coffea arabica) Allergy Unknown per Verified 11/27/23 14:13 allergy testing Penicillins Allergy Unknown per Verified 05/13/23 14:13 allergy testing Home Medications Medication Instructions Recorded Confirmed Type loratadine 10 mg tablet (Claritin) 10 mg PO HS Congestion 03/21/20 08/02/24 History melatonin 5 mg tablet 5 mg PO HS Sleep 10/12/21 08/02/24 History betamethasone dipropionate 0.05 % 1 applic topical BID #60 mL 05/13/23 08/02/24 Rx lotion clobetasol 0.05 % topical ointment 1 applic topical BID #30 grams 07/04/23 08/02/24 Rx cholecalciferol (vitamin D3) 25 25 mcg PO DAILY 08/02/24 08/02/24 History mcg (1,000 unit) capsule (Vitamin D3) escitalopram oxalate 10 mg tablet 5 mg PO PM 08/02/24 08/02/24 History fluticasone propionate 50 2 spray intranasal QAM PRN 08/02/24 08/02/24 History mcg/actuation nasal Congestion spray,suspension tacrolimus 0.1 % topical ointment 1 applic topical BID PRN Other 08/02/24 08/02/24 History Past Med/Surg History Problem List (Updated 08/03/24 @ 00:03 by Leslye Daerica) Dizziness (Acute) Headache (Acute) Blood glucose elevated (Acute) Headache (Acute) Chest pain (Acute) Vivid dream Somatic symptom disorder Chest pain (Acute) Pseudotumor cerebri (Acute) Dermatomyositis Small fiber neuropathy Headache Hypokalemia Persistent postural-perceptual dizziness Idiopathic intracranial hypertension Sinus tachycardia Palpitations Chest pain (Acute) POTS (postural orthostatic tachycardia syndrome) (Acute) Epigastric abdominal pain (Acute) Weakness (Acute) Change in mental status POTS (postural orthostatic tachycardia syndrome) (Acute) DVT (deep vein thrombosis) in Seizure-like activity Paresthesia Severe uncontrolled hypertension Vision changes High cholesterol GERD (gastroesophageal reflux disease) Anxiety and depression History of bulimia Insomnia Vitamin D deficiency Seasonal allergies Vitamin B12 deficiency Migraine Ankylosing spondylitis Degenerative disc disease Exercise-induced asthma Morbid obesity Thoracic disc disease Dysphagia Prediabetes Eustachian tube dysfunction Near syncope Inappropriate sinus tachycardia Abnormal EEG Hypersomnia Dietary counseling and surveillance Metabolic syndrome Pericarditis Medical History Abnormal EEG Ankylosing spondylitis Anxiety and depression Change in vision Chest pain Chest pain COVID-19 Degenerative disc disease Dizziness DVT (deep venous thrombosis) Eustachian tube dysfunction Fatigue GERD (gastroesophageal reflux disease) Headache Heart palpitations High cholesterol History of bradycardia History of bulimia History of pre-eclampsia Insomnia Iron deficiency anemia Migraine Morbid obesity with BMI of 40.0-44.9, adult Seasonal allergies Thoracic disc disease Vitamin B12 deficiency Vitamin D deficiency Surgical History History of cardiac cath 06/2015 @ [facility]--d/t chest pain, normal no stents History of cholecystectomy History of esophagogastroduodenoscopy (EGD) History of wisdom tooth extraction Family History (System 10/17/22 @ 08:26 by Sophia Benavidez) Father Hypertension Mother Diabetes Grandfather (Maternal) Diabetes Coronary heart disease Myocardial infarction Congestive heart failure Colorectal cancer Grandfather (Paternal) Diabetes Coronary heart disease Myocardial infarction, Onset Age: 50 Grandmother (Paternal) Pulmonary emphysema Sick sinus syndrome Diabetes Pacemaker Grandmother (Maternal) Family history of diabetes mellitus Aunt Pulmonary emphysema Family/Other Myocardial infarction, Onset Age: 37 Coronary heart disease Uncle Stroke Other Asthma Lymphoma No family history of adverse response to anesthesia Denies family history of Ovarian cancer Prostate cancer Breast cancer Social History (System 10/17/22 @ 08:26 by Sophia Benavidez) Smoking Status: Never smoker Tobacco Type: Cigarettes Second Hand Exposure: No; Do You Dip or Chew Tobacco: No; Hx Alcohol Use: No Hx Substance Use: No Preferred Language: Turkmen Communication Ability: Effective Communication Tools: Other Visual Impairment: No Limitations Hearing Ability: Normal 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 Beliefs That Will Affect Care: None marital status: Current Living Situation: Spouse and Family Current Living Situation Comment: Lives with and daughter current occupational status: unemployed How many Children do You have: 1 Feels Safe at Home: Yes Safety Concerns: Feels Safe At This Time Childhood Exposure to Second-Hand Smoke: Yes Diet: regular caffeine: No during the past year weight has: remained stable Dental Care, Regularly: Yes Physical Activity Frequency: 5-6 Times per Week Seatbelt Use: never Sunscreen Use: Yes Assistive Devices: Wheelchair Review of Systems Review of Systems: All systems reviewed & are unremarkable except as noted in HPI & below Physical Exam Physical Exam: General- Not in acute distress Head- atraumatic Eyes- PERRL. ENT- oropharynx clear Neck- supple, no JVD. Lungs- clear to auscultation no wheezing or crackles Heart- regular rhythm; no murmur, no gallop. Abdomen- normal bowel sounds, soft, nontender, no distension Extremities- no pretibial edema, no erythema seen Neuro- alert, oriented PERRL, no facial palsy; no dysarthria; moves extremities. Sensations intact, no pronator drift. Results & Data Results & Data Vital Signs (Past 12 Hours) Vital Signs Temp Pulse Pulse Resp BP BP Pulse Ox 08/02/24 20:38 95 H 08/02/24 20:30 94 H 18 96 08/02/24 19:00 94 H 18 143/100 H 96 08/02/24 18:00 98 H 18 151/102 H 94 08/02/24 16:31 87 08/02/24 16:06 90 14 150/105 H 97 08/02/24 15:03 36.5 C 100 H 20 152/114 H 95 O2 Del Method 08/02/24 20:38 08/02/24 20:30 08/02/24 19:00 08/02/24 18:00 Room Air 08/02/24 16:31 08/02/24 16:06 Room Air 08/02/24 15:03 Room Air Diagnostic Findings Laboratory Results WBC 10.04 K/ul (4.8-10.8) 08/02/24 15:27 RBC 4.61 M/uL (4.20-5.40) 08/02/24 15:27 Hgb 13.2 g/dl (12.0-16.0) 08/02/24 15:27 Hct 40.9 % (37.0-47.0) 08/02/24 15:27 MCV 88.7 fL (80.0-100.0) 08/02/24 15: MCH 28.6 pg (25.0-34.0) 08/02/24 15: MCHC 32.3 g/dL (32.0-36.0) 08/02/24 15:27 RDW Std Deviation 43.3 fL (36.4-46.3) 08/02/24 15: RDW Coeff of Yash 13.5 % (11.5-14.5) 08/02/24 15:27 Plt Count 298 K/uL (130-400) 08/02/24 15: MPV 9.6 fL (9.4-12.4) 08/02/24 15: Immature Gran % (Auto) 0.4 % 08/02/24 15: Neut % (Auto) 66.8 % 08/02/24 15:27 Lymph % (Auto) 25.7 % 08/02/24 15:27 Rapides % (Auto) 3.9 % 08/02/24 15:27 Eos % (Auto) 2.9 % 08/02/24 15:27 Baso % (Auto) 0.3 % 08/02/24 15: Neut # (Auto) 6.71 K/uL (1.40-6.50) H 08/02/24 15: Lymph # (Auto) 2.58 K/uL (1.20-3.40) 08/02/24 15: Rapides # (Auto) 0.39 K/uL (0.11-0.59) 08/02/24 15: Eos # (Auto) 0.29 K/uL (0.00-0.50) 08/02/24 15: Baso # (Auto) 0.03 K/uL (0.00-0.20) 08/02/24 15: Immature Gran # (Auto) 0.04 K/uL (0.01-0.20) 08/02/24 15: PT 10.1 Seconds (9.0-12.0) 08/02/24 15: INR 0.9 (0.9-1.1) 08/02/24 15:27 APTT 29 Seconds (21-31) 08/02/24 15: PTT Ratio 1.1 08/02/24 15:27 Sodium 136 mmol/L (136-145) 08/02/24 15: Potassium 4.0 mmol/L (3.5-5.1) 08/02/24 15: Chloride 104 mmol/L (98-107) 08/02/24 15: Carbon Dioxide 25 mmol/L (21-32) 08/02/24 15: Anion Gap 7 (3-11) 08/02/24 15: BUN 11 mg/dl (6-23) 08/02/24 15:27 Creatinine 0.63 mg/dl (0.6-1.2) 08/02/24 15:27 Est Cr Clr Drug Dosing 152.3 ml/min 08/02/24 15:27 eGFR 117.83 08/02/24 15:27 BUN/Creatinine Ratio 17.5 (10-20) 08/02/24 15:27 Glucose 105 mg/dl (70-99(Fasting)) H 08/02/24 15:27 Calcium 9.5 mg/dl (8.6-10.3) 08/02/24 15:27 Total Bilirubin 0.3 mg/dl (0.2-1.0) 08/02/24 15:27 AST 14 U/L (13-39) 08/02/24 15:27 ALT 14 U/L (7-52) 08/02/24 15:27 Alkaline Phosphatase 111 U/L (34-104) H 08/02/24 15:27 Troponin I High Sens 3.0 pg/ml (0-14) 08/02/24 15:27 Total Protein 7.8 gm/dl (6.0-8.3) 08/02/24 15:27 Albumin 4.1 gm/dl (3.4-5.0) 08/02/24 15:27 Globulin 3.7 gm/dl (2.5-4.0) 08/02/24 15:27 Albumin/Globulin Ratio 1.1 (0.9-2) 08/02/24 15:27 POC Ur Test NEG (NEG) 08/02/24 15:50 SARS-CoV-2 (PCR) NEGATIVE (Negative) 08/02/24 15:29 Influenza Type A (PCR) Negative (Neg) 08/02/24 15:29 Influenza Type B (PCR) Negative (Neg) 08/02/24 15:29 RSV (RT-PCR) Negative (Neg) 08/02/24 15:29 ECG Additional Comments: ECG. Normal sinus rhythm rate of 88. QTc 493 Code Status & VTE Plan VTE Prophylaxis Plan VTE Prophylaxis will be ordered: Yes
--- NOTE | 2024-08-03 08:12 | Hospitalist Progress Note ---
Date of Service August 03, 2024 Assessment & Plan (1) Headache: Plan: 38-year-old female with past medical significant for hyperglycemia, insulin resistance, mild intermittent asthma, seasonal allergies rhinitis, palpitation, hypertension, prolonged QT, morbid obesity, GERD, vitamin D deficiency, fibromyalgia, history of viral warts, degenerative disc disease, plaque psoriasis, atypical chest pain, atypical migraine, depression, insomnia, dizziness, generalized anxiety disorder presents with severe headaches and dizziness. Patient having these headaches going on for some time. Symptoms began about 3 weeks ago. Because of some vision changes she was referred to ophthalmology. Recently seen by ophthalmology seems no papilledema seen. She was also having fullness in the ears seen by ENT. Her Lexapro dose was increased to 10 mg for anxiety but patient says she had QT prolongation and the dose was cut back to 5 mg . Saw cardiology and was placed on heart monitor. She has appointment with neurology in 2 weeks. But as symptoms are getting wor se she came to ER. Today she also had bilateral face tingling and tingling in the hands. Currently tingling is much improved per Patient.-Having severe headache in the frontal region, retro-orbital region and occipital region. Lights and sounds are bothering her. Denies any fevers. No chest pain. No shortness of breath. No cough. Has some nausea. No abdominal pain. Normal bowel and bladder movements. She has history of intracranial hypertension and was previous treated with Diamox several years ago. Headaches Dizziness hx of ICH Going on for some time Today also had some tenderness in the face and hands which are improving now ER discussed with the neurology on-call. Recommended IV Solu-Medrol 250 mg, IV valium, and IV compazine w/o improvement History of intracranial hypertension Pain control with prn Apap, pt refusing NSAIDS, ice/heat/ topicals Neuro recommends MRI/MRA brain, LP with opening pressures and normal csf studies History of prolonged QT Avoid QT prolonging drugs Heart monitor placed by cardio while titrating lexapro Follow-up with cardiology Morbid obesity Needs counseling Depression On Lexapro Psych consulted per pt request for anxiety - they are recommending adding buspar DVT prophylaxis SCDs for now Disposition:med tele, not yet medically ready for discharge Full code PCP: Dagoberto Arevalo Pt was seen and examined in collaboration with Dr. Banuelos, please see addendum I spent a total of 46 minutes coordinating, documenting and providing care for this patient excluding time spent in the performance of separately billed services or time spent by another provider/QHP. Admission and Anticipated Discharge Date Admission Date: August 02, 2024 Supervising Physician Co-Signing Physician Notes Pt seen and examined by me, care coordinated w/ Mally Gama PA-C, pls refer to her note above for further detail. Pt admitted with headache (and other neuro symptoms), follows w/ Dr. Braxton (neurology). Received IV solumedrol in ED w/o much improvement. She underwent brain MRI and LP today. Currently sitting up in bed in NAD, overall feels little better reports less pressure in her ears. Currently denies any fever, chills, chest pain, shortness of breath. She was also seen by psych and buspar was recommended , she would like to discuss it further - i notified psych liason, they plan to stop by again tmrw. On physical exam, pt is comfortable, calm, breathing on RA, answers appropriately, no facial asymmetry, speech fluent, moves extremities. Lungs are clear to auscultation. BMI 48 and discussed weight management and weight loss - pt reports she gained weight up to 290 lbs but has been on ozempic for 6 months and lost over 30 lbs. Will continue to follow as outpt. MD Lakisha Subjective Pt seen in 215. She continues to report TURK. She states it is located frontal with pressure, eye pain and pain at the base of the neck. She also reports numbness/tingling to fingers 1-4 and occasionally shooting pain down her arms. She reports recently getting an outpt MRI at [facility] done of her neck and she showed me the results. She reports hx of ICH. Reports this feels similar. Also reports visual changes that was evaluated by her senior communications specialist recently with no acute concerns. She reports no improvement with APAP, toradol, ice/heat, muscle relaxers. She doesn't want narcotics for pain. Review of Systems Review of Systems: All systems reviewed & are unremarkable except as noted in HPI & below Physical Exam Physical Exam: Gen: WD/WN, NAD, A&O x3 HEENT: Normocephalic, atraumatic, conjunctivae moist, sclerae anicteric, mucous membranes moist. Lung: Clear to Auscultation bilaterally, no wheezes/rales/rhonchi Heart: Regular rate, regular rhythm, no murmurs, rubs, or gallops Abdomen: Soft, NT, ND +BS x 4 Extremities: No edema Skin: Warm, no rash, negative turgor. Results & Data Results & Data Vital Signs (Past 12 Hours) Vital Signs Temp Pulse Pulse Resp BP BP Pulse Ox 08/03/24 07:11 36.5 C 86 17 100/70 95 08/03/24 07:00 96 H 08/03/24 03:16 93 H 08/03/24 02:56 08/03/24 02:45 36.8 C 86 16 123/73 95 08/03/24 01:53 78 18 123/76 99 08/03/24 01:13 08/03/24 00:45 93 H 16 148/88 H 94 08/03/24 00:44 97 H 08/02/24 23:30 89 20 121/72 92 08/02/24 22:30 94 H 18 156/108 H 96 08/02/24 20:45 98 H 18 153/92 H 92 08/02/24 20:38 95 H 08/02/24 20:30 94 H 18 96 Pulse Ox O2 Del Method O2 Del Method 08/03/24 07:11 Room Air 08/03/24 07:00 08/03/24 03:16 08/03/24 02:56 Room Air 08/03/24 02:45 Room Air 08/03/24 01:53 Room Air 08/03/24 01:13 95 Room Air 08/03/24 00:45 08/03/24 00:44 08/02/24 23:30 08/02/24 22:30 08/02/24 20:45 08/02/24 20:38 08/02/24 20:30 Laboratory Results Short CBC 08/02/24 Range/Units 15:27 WBC 10.04 (4.8-10.8) K/ul Hgb 13.2 (12.0-16.0) g/dl Hct 40.9 (37.0-47.0) % Plt Count 298 (130-400) K/uL BMP 08/02/24 08/03/24 15:27 09:24 Sodium 136 Potassium 4.0 Chloride 104 Carbon Dioxide 25 BUN 11 Creatinine 0.63 Glucose 105 H 197 H Calcium 9.5 Liver Function 08/02/24 Range/Units 15:27 Total Bilirubin 0.3 (0.2-1.0) mg/dl AST 14 (13-39) U/L ALT 14 (7-52) U/L Alkaline Phosphatase 111 H (34-104) U/L Albumin 4.1 (3.4-5.0) gm/dl Medications Administered Current Inpatient Medications Acetaminophen (Acetaminophen 325 Mg Tab) 650 mg PO Q4H PRN PRN Reason: Pain or Fever Stop: 09/02/24 01:00 Betamethasone Valerate (Betamethasone Alice 0.1% Cr 15 Gm) 1 appln TOP BID ANNA Stop: 09/02/24 08:59 Last Admin: 08/03/24 08:25 Dose: 1 appln Escitalopram Oxalate (Escitalopram Oxalate 10 Mg Tab) 5 mg PO PM ANNA Stop: 09/02/24 20:59 Fluticasone Propionate (Fluticasone Propionate Na Spr 16 Gm Btl) 2 sprays NA QAM PRN PRN Reason: Congestion Stop: 09/02/24 01:00 Sodium Chloride (Nss) 1,000 mls @ 80 mls/hr IV .[id number] ANNA Stop: 08/03/24 13:30 Last Admin: 08/03/24 01:11 Dose: 80 mls/hr Promethazine HCl (Phenergan) 12.5 mg in 50.5 mls @ 202 mls/hr IV Q6H PRN PRN Reason: Nausea And Vomiting Stop: 09/02/24 01:00 Loratadine (Loratadine 10 Mg Tab) 10 mg PO HS ANNA Stop: 09/02/24 20:59 Melatonin (Melatonin 3 Mg Tab) 4.5 mg PO HS ANNA Stop: 09/02/24 20:59 Nitroglycerin (Nitroglycerin Sl 0.4 Mg/Tab Tab) 0.4 mg SL Q5M PRN PRN Reason: Chest Pain Stop: 09/02/24 01:00 Polyethylene Glycol (Polyethylene (Miralax) 17 Gm Pack) 17 gm PO DAILY PRN PRN Reason: Constipation Stop: 09/02/24 01:00 Vitamin D (Cholecalciferol 25 Mcg (1000 Units) Tab) 25 mcg PO DAILY ANNA Stop: 09/02/24 08:59 Last Admin: 08/03/24 08:25 Dose: 25 mcg
[2024-08-03] MEDS: CHOLECALCIFEROL 25 MCG (1000 UNITS) TAB PO SCH (08:25)
[2024-08-03] MEDS: BETAMETHASONE VAL 0.1% CR 15 GM TOP SCH (08:25)
--- NOTE | 2024-08-03 08:55 | Neurology Consultation ---
Date of Consultation August 03, 2024 Assessment & Plan (1) Pseudotumor cerebri: Plan 38-year-old female with a history of idiopathic intracranial hypertension, likely experiencing a symptomatic recurrence over the past 3 months in the context of weight gain. Although she did not have obvious papilledema with a recent optometry assessment, lack of papilledema does not exclude this diagnosis. Would recommend a brain MRI with and without contrast, as well as an MRV of the brain (without contrast). Would also recommend a lumbar puncture to radiology, with opening pressure. (Standard CSF studies, does not require an MS panel at this time.) I will advise further pending completion of these tests. More likely than not, however, I will recommend restarting acetazolamide (extended release acetazolamide 500 mg twice daily). History of Present Illness Reason for Consultation: headache Requesting Physician: Marta Attending Physician: Jed Banuelos MD History of Present Illness The patient is a 38-year-old female who is known to me.She has a history of idiopathic intracranial hypertension and had been treated with Diamox several years ago with good symptom resolution.She eventually stopped this medication and have been doing well. However, she does have a history of anxiety and had started Lexapro about 2 years ago, in that context, she has gained a significant amount of weight.About 3 months ago, she began to experience the recurrence of her pseudotumor cerebri symptoms including an uncomfortable feeling of head pressure and transient vision disturbances, blurry vision, black spots, lasting a few minutes, occurring several times per day, no specific trigger such as bending over and standing up. She saw her eye doctor recently, her examination was apparently reassuring, no obvious signs of papilledema. She also complains of an intermittent swooshing sound in her head, as well as bilateral tinnitus, no hearing loss. The patient also reports an intermittent sensation as if she is rocking on a boat. She indicates that she has had all of the symptoms previously, in the context of pseudotumor cerebri.She did have a CT of the head completed on July 20, in the context of an emergency department assessment for similar symptoms. I did independently review these images. The study is negative for acute process, no hemorrhage or infarct. The lateral ventricles have a slitlike appearance, frontally, very similar to her previous head CT done in 2021. Previous imaging in 2021 had included brain MRI, MRV of the head, and MRA of the head and neck. I independently reviewed these images, other than slitlike lateral ventricles, no other significant abnormalities at that time, no hydrocephalus, no Chiari malformation, no significant parenchymal abnormality. There was a partially empty sella. Allergies Allergy/AdvReac Type Severity Reaction Status Date / Time amoxicillin Allergy Severe ANAPHYLAXIS Verified 05/13/23 14:13 clavulanic acid Allergy Severe ANAPHYLAXIS Verified 05/13/23 14:13 Iodinated Contrast Media Allergy Severe Hives, Verified 05/13/23 14:13 tongue swelling doxycycline Allergy Intermediate Rash Verified 05/13/23 14:13 egg Allergy Intermediate Hives Verified 05/13/23 14:13 fish derived Allergy Intermediate Hives Verified 05/13/23 14:13 metronidazole Allergy Intermediate rash Verified 05/13/23 14:13 sulfamethoxazole Allergy Intermediate tongue Verified 05/13/23 14:13 [From Bactrim] swelling trimethoprim [From Bactrim] Allergy Intermediate tongue Verified 05/13/23 14:13 swelling coffee (Coffea arabica) Allergy Unknown per Verified 05/13/23 14:13 allergy testing Penicillins Allergy Unknown per Verified 05/13/23 14:13 allergy testing Home Medications Medication Instructions Recorded Confirmed Type loratadine 10 mg tablet (Claritin) 10 mg PO HS Congestion 03/21/20 08/02/24 History melatonin 5 mg tablet 5 mg PO HS Sleep 10/12/21 08/02/24 History betamethasone dipropionate 0.05 % 1 applic topical BID #60 mL 05/13/23 08/02/24 Rx lotion clobetasol 0.05 % topical ointment 1 applic topical BID #30 grams 07/04/23 08/02/24 Rx cholecalciferol (vitamin D3) 25 25 mcg PO DAILY 08/02/24 08/02/24 History mcg (1,000 unit) capsule (Vitamin D3) escitalopram oxalate 10 mg tablet 5 mg PO PM 08/02/24 08/02/24 History fluticasone propionate 50 2 spray intranasal QAM PRN 08/02/24 08/02/24 History mcg/actuation nasal Congestion spray,suspension tacrolimus 0.1 % topical ointment 1 applic topical BID PRN Other 08/02/24 08/02/24 History Patient History Medical History Abnormal EEG Ankylosing spondylitis Anxiety and depression Change in vision Chest pain Chest pain COVID-19 Degenerative disc disease Dizziness DVT (deep venous thrombosis) Eustachian tube dysfunction Fatigue GERD (gastroesophageal reflux disease) Headache Heart palpitations High cholesterol History of bradycardia History of bulimia History of pre-eclampsia Insomnia Iron deficiency anemia Migraine Morbid obesity with BMI of 40.0-44.9, adult Seasonal allergies Thoracic disc disease Vitamin B12 deficiency Vitamin D deficiency Surgical History History of cardiac cath 06/2015 @ [facility] [place]--d/t chest pain, normal no stents History of cholecystectomy History of esophagogastroduodenoscopy (EGD) History of wisdom tooth extraction Family History (System 10/17/22 @ 08:26 by Sophia Benavidez) Father Hypertension Mother Diabetes Grandfather (Maternal) Diabetes Coronary heart disease Myocardial infarction Congestive heart failure Colorectal cancer Grandfather (Paternal) Diabetes Coronary heart disease Myocardial infarction, Onset Age: 50 Grandmother (Paternal) Pulmonary emphysema Sick sinus syndrome Diabetes Pacemaker Grandmother (Maternal) Family history of diabetes mellitus Aunt Pulmonary emphysema Family/Other Myocardial infarction, Onset Age: 37 Coronary heart disease Uncle Stroke Other Asthma Lymphoma No family history of adverse response to anesthesia Denies family history of Ovarian cancer Prostate cancer Breast cancer Social History (System 10/17/22 @ 08:26 by Sophia Benavidez) Smoking Status: Never smoker Tobacco Type: Cigarettes Second Hand Exposure: No; Do You Dip or Chew Tobacco: No; Hx Alcohol Use: No Hx Substance Use: No Preferred Language: Romanian Communication Ability: Effective Communication Tools: Other Visual Impairment: No Limitations Hearing Ability: Normal Spray Gun Striper Required: No Beliefs That Will Affect Care: None marital status: Current Living Situation: Spouse and Family Current Living Situation Comment: Lives with and daughter current occupational status: unemployed How many Children do You have: 1 Feels Safe at Home: Yes Safety Concerns: Feels Safe At This Time Childhood Exposure to Second-Hand Smoke: Yes Diet: regular caffeine: No during the past year weight has: remained stable Dental Care, Regularly: Yes Physical Activity Frequency: 5-6 Times per Week Seatbelt Use: never Sunscreen Use: Yes Assistive Devices: Wheelchair Review of Systems Constitutional: no fever and no chills Eyes: as per Subjective / HPI Ear, Nose, Mouth, Throat: as per Subjective / HPI Respiratory: no cough and no dyspnea Cardiovascular: no chest pain and no palpitations Gastrointestinal: no nausea and no vomiting Genitourinary: no urinary incontinence Musculoskeletal: + neck pain Integumentary: + rash and + lesions (Psoriatic skin les ions) Neurologic: as per Subjective / HPI, + dizziness, + headache(s) and + memory loss; no localized weakness, no lack of coordination, no tremor(s), no abnormal movements and no abnormal speech Psychiatric: + anxiety Hematologic / Lymphatic: no easy bleeding and no easy bruising Exam (Neuro) Constitutional: well developed and well nourished; no acute distress Eyes: normal visual kowalski by confrontation, PERRL, normal accommodation and EOM intact bilaterally; no nystagmus Neurologic: Oriented to:: Person, Place and Time Memory: Short Term Intact and Remote Intact Attention: Span Intact and Concentration Intact Language: Naming Objects and Repeating Phrases Speech Fluency: negative Dysarthria Speech Aphasia: negative Aphasia Fund of Knowledge: Current Events, Past History and Vocabulary Cranial Nerves: Normal II (Visual kowalski full to confrontation, visual acuity normal), III, IV, (Pupils equal round reactive to light and accommodation, eye movements normal), V (Facial sensation intact), VII (There is no facial droop or weakness), VIII (Hearing intact), IX, X (Palate elevates to midline), XI (Shoulder shrug intact) and XII (Tongue protrudes to midline) Motor Strength: Normal Lower Extremities and Normal Upper Extremities; negative Pronator Drift Motor Tone: Normal Lower Ex tremities and Normal Upper Extremities Muscle Bulk/Involuntary Movements: No Involuntary Movements; negative Muscle Atrophy Sensation: Light Touch Intact, Pain/Temperature Intact, Vibration Intact and Proprioception Intact Coordination: Normal; negative Limited Balance, Dysdiadochokinesia, Finger-Nose Abnormal or Heel-Michaud Abnormal Deep Tendon Reflexes: Rt Triceps: 1+, Lt Triceps: 1+, Rt Biceps: 1+, Lt Biceps: 1+, Rt Brachioradialis: 1+, Lt Brachioradialis: 1+, Rt Patellar: 1+, Lt Patellar: 1+, Rt Ankle: 1+ and Lt Ankle: 1+ Special Tests: negative Babinski Present Results & Data Vital Signs (Past 12 Hours) Vital Signs Temp Pulse Pulse Resp BP BP Pulse Ox 08/03/24 07:11 36.5 C 86 17 100/70 95 08/03/24 07:00 96 H 08/03/24 03:16 93 H 08/03/24 02:56 08/03/24 02:45 36.8 C 86 16 123/73 95 08/03/24 01:53 78 18 123/76 99 08/03/24 01:13 08/03/24 00:45 93 H 16 148/88 H 94 08/03/24 00:44 97 H 08/02/24 23:30 89 20 121/72 92 08/02/24 22:30 94 H 18 156/108 H 96 Pulse Ox O2 Del Method O2 Del Method 08/03/24 07:11 Room Air 08/03/24 07:00 08/03/24 03:16 08/03/24 02:56 Room Air 08/03/24 02:45 Room Air 08/03/24 01:53 Room Air 08/03/24 01:13 95 Room Air 08/03/24 00:45 08/03/24 00:44 08/02/24 23:30 08/02/24 22:30 Laboratory Results WBC 10.04, hemoglobin 13.2, hematocrit 40.9, platelet count 298 sodium 136, potassium 4.0, BUN 11, creatinine 0.63, glucose 105, calcium 9.5, AST 14, ALT 14 Diagnostic Findings Electrocardiogram revealed a normal sinus rhythm, 88 bpm. Coding Level of Care Code 07302 INT INP/OBS CARE 3/75MIN Diagnoses Pseudotumor cerebri G93.2 Time Spent (min) 80 Comment Total time includes patient contact, chart review, counseling, note preparation
[2024-08-03] MEDS: GADOBUTROL 65ML VIAL IV ONE (11:57)
--- NOTE | 2024-08-03 12:19 | Magnetic Resonance Report ---
MRI OF THE BRAIN WITHOUT AND WITH IV CONTRAST CLINICAL HISTORY: Headache. History of intracranial hypertension. COMPARISON STUDY: Head CT July 20, 2024. MRI the brain September 05, 2021. TECHNIQUE: Utilizing a 1.5 Martha magnet and dedicated coil, multiplanar, multiecho imaging of the brain was performed pre and postcontrast administration. IV administration of 12 mL of Gadavist contrast was uneventful. FINDINGS: There are no foci of restricted diffusion to suggest acute infarct. No acute intracranial hemorrhage, midline shift or mass effect is present. Basal cisterns are patent. There are no extra axial collections. Flow-voids for the major intracranial vessels are present. Ventricular system is unremarkable. There is no intracranial mass or pathologic enhancement. A few punctate foci of signal abnormality are of doubtful significance. Calvarial signal is normal. There is no evidence for sinusitis. IMPRESSION: 1. No acute intracranial findings. 2. No intracranial mass or pathologic enhancement. ACT 112: Negative or not required by law. Electronically signed by: Geremias Andrews M.D. 08/03/2024 12:17 PM LIZZETTE
--- NOTE | 2024-08-03 12:58 | Electrocardiogram Report ---
Test Reason : Blood Pressure : */* mmHG Vent. Rate : 91 BPM Atrial Rate : 91 BPM P-R Int : 162 ms QRS Dur : 74 ms QT Int : 362 ms P-R-T Axes : 16 2 17 degrees QTcB Int : 445 ms Normal sinus rhythm Minimal voltage criteria for LVH, may be normal variant Cannot rule out Anterior infarct (cited on or before 20-Jul-2024) Abnormal ECG When compared with ECG of 20-Jul-2024 17:52, QT has shortened Confirmed by Paulino Enamorado ([id number]) on 08/03/2024 12:58:15 PM Referred By: Confirmed By: Paulino Enamorado
--- NOTE | 2024-08-03 13:10 | Electrocardiogram Report ---
Test Reason : Blood Pressure : */* mmHG Vent. Rate : 88 BPM Atrial Rate : 88 BPM P-R Int : 186 ms QRS Dur : 74 ms QT Int : 408 ms P-R-T Axes : 20 21 16 degrees QTcB Int : 493 ms Normal sinus rhythm Possible Inferior infarct (cited on or before 20-Jul-2024) Abnormal ECG Confirmed by Paulino Enamorado ([id number]) on 08/03/2024 1:10:37 PM Referred By: REFERRED SELF Confirmed By: Paulino Enamorado
[2024-08-03 13:25] LABS: Total Protein CSF 26.8 mg/dl (15-45)
--- NOTE | 2024-08-03 13:30 | Magnetic Resonance Report ---
MR angio head wo con CLINICAL HISTORY: hx of ich, walters COMPARISON STUDY: None TECHNIQUE: 3-D [id number] images were performed with maximum intensity projection technique. Intr avenous gadolinium was not administered. FINDINGS: There is no aneurysm or vascular malformation identified. There is no significant stenosis or occlusive disease appreciated. There is no intraluminal filling defect or dissection identified. IMPRESSION: Negative intracranial MRA ACT 112: Negative or not required by law. Electronically signed by: Alicia Harrell M.D. 08/03/2024 1:28 PM
[2024-08-03 13:52] LABS: Appearance CSF Clear; CSF Count Tube # 3; CSF Xanthrochromic No xanthochromia; Color CSF Colorless; Mononuclear WBC CSF Auto 90.9 %; Polynuclear WBC CSF Auto 9.1 %; Red Blood Cell CSF Manual 1 (0); White Blood Cell CSF Auto 11 /uL (0-5)
--- NOTE | 2024-08-03 15:39 | Fluoroscopy Report ---
LUMBAR PUNCTURE UNDER FLUOROSCOPY CLINICAL HISTORY: Intracranial hypertension PROCEDURE: Procedure and risks were explained. Informed consent was obtained. A final timeout was com pleted. The patient was placed prone on the fluoroscopic exam table. The lower lumbar region was prep ped and draped in sterile fashion. 1% lidocaine was utilized for skin anesthesia. Utilizing fluoroscopic guidance, a 22-gauge Sprotte spinal needle was advanced into the intrathecal s pace at the L2-3 disc space level. Fluoroscopic spot images were obtained. Opening pressure was measu red at 23 cm H2O. Approximately 8 mL of clear CSF fluid was removed and sent to lab for analysis. The needle was removed and Band-Aid applied. The patient tolerated the procedure well. Vital signs will be monitored postprocedure. Fluoroscopy time 17 seconds. Study dosed 22.96 mGy. IMPRESSION: Lumbar puncture as above. Performed, dictated, and signed by Balbir Narvaez PA-C; to be co-signed by Dr. Geremias Andrews. Electronically signed by: Geremias Andrews M.D. 08/03/2024 4:06 PM
[2024-08-03] MEDS: acetaZOLAMIDE 500 MG CAPCR PO SCH (21:31)
[2024-08-03] MEDS: ESCITALOPRAM OXALATE 10 MG TAB PO SCH (21:31)
[2024-08-03] MEDS: LORATADINE 10 MG TAB PO SCH (21:32)
[2024-08-03] MEDS: MELATONIN 3 MG TAB PO SCH (21:32)
[2024-08-03] MEDS: busPIRone 5 MG TAB PO SCH (21:32)
--- NOTE | 2024-08-04 00:43 | Magnetic Resonance Report ---
EXAM: MR venography head wo con CLINICAL HISTORY: Idiopathic intracranial hypertension TECHNIQUE: [id number] enhancement of the dural venous sinuses were performed with maximum intensity projection algorithms for an MRV of the brain. COMPARISON: None. FINDINGS: The superior sagittal sinus is patent. 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 Suspicious mild attenuation of the distal portion of bilateral transverse sinuses is noted. The bilateral transverse sinuses, sigmoid sinuses and intracranial jugular veins are patent. The straight sinus, vein of Jim, and internal cerebral veins are patent. IMPRESSION: 1. No evidence of dural venous sinus thrombosis. 2. Mildly hypoplastic left transverse, sigmoid sinuses. 3. Suspicious mild attenuation of the distal portion of bilateral transverse sinuses is noted. In the provided clinical background, this could be secondary to underlying intracranial hypertension. Advised CT venogram with contrast for confirmation. Electronically signed by Tristin Edward 08-04-2024 12:41 AM
[2024-08-04 07:38] LABS: Basophils # (auto) 0.04 K/uL (0.00-0.20); Basophils % (auto) 0.2 %; Eosinophils # (auto) 0.02 K/uL (0.00-0.50); Eosinophils % (auto) 0.1 %; Hematocrit (blood only) 37.9 % (37.0-47.0); Hemoglobin 12.2 g/dl (12.0-16.0); Immature Granulocytes # (auto) 0.13 K/uL (0.01-0.20); Immature Granulocytes % (auto) 0.7 %; Lymphocytes # (auto) 3.77 K/uL (1.20-3.40); Mean Corpuscular Hemoglobin 28.8 pg (25.0-34.0); Mean Corpuscular Hgb Conc 32.2 g/dL (32.0-36.0); Mean Corpuscular Volume 89.4 fL (80.0-100.0); Mean Platelet Volume 9.9 fL (9.4-12.4); Monocytes % (auto) 4.4 %; Neutrophils # (auto) 13.23 K/uL (1.40-6.50); Neutrophils % (auto) 73.6 %; Platelet Count 281 K/uL (130-400); RDW Coefficient of Variation 13.8 % (11.5-14.5); RDW Standard Deviation 44.4 fL (36.4-46.3); Red Blood Count 4.24 M/uL (4.20-5.40); White Blood Count 17.99 K/ul (4.8-10.8)
[2024-08-04 07:51] LABS: BUN Creatinine Ratio 30.2 (10-20); Calcium 9.2 mg/dl (8.6-10.3); Creatinine Clr Calc Pharmacy 152.1 ml/min; Magnesium 2.1 mg/dl (1.7-2.4); Potassium 3.9 mmol/L (3.5-5.1)
--- NOTE | 2024-08-04 10:23 | Neurology Progress Note ---
Date of Service August 04, 2024 Assessment & Plan (1) Pseudotumor cerebri: Plan Pseudotumor cerebri, top normal opening pressure, signs of increased intracranial pressure on MRI as well including partially empty sella turcica and slitlike lateral ventricles. Patient also has effacement of the transverse sinuses on MRV of the brain. Diamox was started last night, patient should continue with this treatment, 500 mg twice daily. She will follow-up with me in neurology clinic. Patient should also continue to follow with her heavy lift rigger for monitoring of her visual kowalski. I expect her symptoms to respond with Diamox after a few days. Weight loss will also be beneficial. She does not have signs or symptoms suggestive of meningitis. There is no evidence of cerebral venous thrombosis. Please call with any additional questions. Admission and Anticipated Discharge Date Admission Date: August 02, 2024 Subjective Follow-up regarding idiopathic intracranial hypertension Patient continues to complain of headache and transient vision disturbances. In addition to brain MRI, MRA, and lumbar puncture that were completed yesterday, she did have an MRV of the brain completed. I did independently review these images, there is some effacement of the transverse sinuses suggestive of increased intracranial pressure. Her lumbar puncture opening pressure was top normal. Diamox has been started. She does have a mild elevation in CSF WBC, also had an elevation in serum WBC this morning likely due to administration of Solu-Medrol in the emergency department. She is afebrile, no nuchal rigidity. Results & Data Vital Signs (Past 12 Hours) Vital Signs Temp Pulse Pulse Pulse Resp BP Pulse Ox 08/04/24 08:04 36.5 C 60 18 132/81 98 08/04/24 07:00 63 08/04/24 03:00 36.5 C 77 12 135/85 96 08/04/24 01:17 69 08/04/24 00:47 36.7 C 87 16 146/97 H 95 08/04/24 00:39 69 08/04/24 00:04 90 08/03/24 23:07 36.6 C 80 18 113/74 96 O2 Del Method 08/04/24 08:04 Room Air 08/04/24 07:00 08/04/24 03:00 Room Air 08/04/24 01:17 08/04/24 00:47 Room Air 08/04/24 00:39 08/04/24 00:04 08/03/24 23:07 Room Air Exam (Neuro) Constitutional: well developed and well nourished; no acute distress Eyes: normal visual kowalski by confrontation, PERRL and EOM intact bilaterally; no nystagmus Neurologic: Oriented to:: Person, Place and Time Memory: Short Term Intact and Remote Intact Attention: Span Intact and Concentration Intact Speech Fluency: negative Dysarthria or Dysfluency Speech Aphasia: negative Aphasia Fund of Knowledge: Current Events, Past History and Vocabulary Cranial Nerves: Normal II, III, IV, , V, VII, VIII, IX, X, XI and XII Motor Strength: Normal Lower Extremities and Normal Upper Extremities Muscle Bulk/Involuntary Movements: No Involuntary Movements; negative Muscle Atrophy Coordination: Normal Coding Level of Care Code 95803 SUB INP/OBS CARE 3/50MIN Diagnoses Pseudotumor cerebri G93.2 Time Spent (min) 50 Comment Total time includes patient contact, chart review, counseling, note preparation
--- NOTE | 2024-08-04 11:22 | Hospitalist Progress Note ---
Date of Service August 04, 2024 Assessment & Plan (1) Headache: Plan: 38-year-old female with past medical significant for hyperglycemia, insulin resistance, mild intermittent asthma, seasonal allergies rhinitis, palpitation, hypertension, prolonged QT, morbid obesity, GERD, vitamin D deficiency, fibromyalgia, history of viral warts, degenerative disc disease, plaque psoriasis, atypical chest pain, atypical migraine, depression, insomnia, dizziness, generalized anxiety disorder presents with severe headaches and dizziness. Patient having these headaches going on for some time. Symptoms began about 3 weeks ago. Because of some vision changes she was referred to ophthalmology. Recently seen by ophthalmology seems no papilledema seen. She was also having fullness in the ears seen by ENT. Her Lexapro dose was increased to 10 mg for anxiety but patient says she had QT prolongation and the dose was cut back to 5 mg . Saw cardiology and was placed on heart monitor. She has appointment with neurology in 2 weeks. But as symptoms are getting wor se she came to ER. Today she also had bilateral face tingling and tingling in the hands. Currently tingling is much improved per Patient.-Having severe headache in the frontal region, retro-orbital region and occipital region. Lights and sounds are bothering her. Denies any fevers. No chest pain. No shortness of breath. No cough. Has some nausea. No abdominal pain. Normal bowel and bladder movements. She has history of intracranial hypertension and was previous treated with Diamox several years ago. Headaches Dizziness hx of ICH Going on for some time Today also had some tenderness in the face and hands which are improving now ER discussed with the neurology on-call. Recommended IV Solu-Medrol 250 mg, IV valium, and IV compazine w/o improvement History of intracranial hypertension Pain control with prn Apap, pt refusing NSAIDS, ice/heat/ topicals Brain MRI/MRA reviewed Brain MRV 1. No evidence of dural venous sinus thrombosis. 2. Mildly hypoplas tic left transverse, sigmoid sinuses. 3. Suspicious mild attenuation of the distal portion of bilateral transverse sinuses is noted. In the provided clinical background, this could be secondary to underlying intracranial hypertension. Advised CT venogram with contrast for confirmation. Pt started on Diamox by neuro Discussed with Dr. Braxton at bedside, diamox ankita likely take a few weeks to take affect, she will follow up with him in clinic and at that time they can discuss increasing dose We also discussed CSF results, WBC likely elevated 2/2 steroids she wants fungal infection ruled out due to recent fumigation of bed bugs so will add blood cultures and fungal culture to CSF History of prolonged QT Avoid QT prolonging drugs Heart monitor placed by cardio while titrating lexapro Follow-up with cardiology Morbid obesity Needs counseling Depression On Lexapro Psych consulted per pt request for anxiety - they are recommending adding buspar which was started DVT prophylaxis SCDs for now Disposition:med tele, not yet medically ready for discharge as she is still having TURK Full code PCP: Dagoberto Arevalo Pt was seen and examined in collaboration with Dr. Banuelos, please see addendum I spent a total of 45 minutes coordinating, documenting and providing care for this patient excluding time spent in the performance of separately billed services or time spent by another provider/QHP. Admission and Anticipated Discharge Date Admission Date: August 02, 2024 Supervising Physician Co-Signing Physician Notes Pt seen and examined by me, care coordinated w/ Mally Gama PA-C, pls refer to her note above for further detail. Pt admitted with headache (and other neuro symptoms), follows w/ Dr. Braxton (neurology). Received IV solumedrol in ED w/o much improvement. She underwent brain MRI and LP yesterday. Currently sitting up in bed in NAD, however reports having TURK. She was started on acetazolamide by neuro. Currently denies any feve r, chills, chest pain, shortness of breath. She was also seen by psych and buspar was recommended and started. On physical exam, pt is comfortable, calm, breathing on RA, answers appropriately, no facial asymmetry, speech fluent, moves extremities. Lungs are clear to auscultation. BMI 48 and discussed weight management and weight loss - pt reports she gained weight up to 290 lbs but has been on ozempic for 6 months and lost over 30 lbs. She will continue to follow up on her weight management as outpt. MD Lakisha Subjective Pt seem in room 262-2. Dr. Braxton at bedside discussing LP results and ICH dx. Pt continues to have a TURK, feels worse than yesterday. TURK is worse with lying flat. She continues to have visual sx. Overall her appetite is ok. She is concerned with her recent fumigation of bed bugs and would like a fungal infection ruled out. Review of Systems Review of Systems: All systems reviewed & are unremarkable except as noted in HPI & below Physical Exam Physical Exam: Gen: WD/WN, appears in pain, NAD, A&O x3 HEENT: Normocephalic, atraumatic, conjunctivae moist, sclerae anicteric, mucous membranes moist. Lung: Clear to Auscultation bilaterally, no wheezes/rales/rhonchi Heart: Regular rate, regular rhythm, no murmurs, rubs, or gallops Abdomen: Soft Extremities: No edema Skin: Warm, no rash, negative turgor. Results & Data Results & Data Vital Signs (Past 12 Hours) Vital Signs Temp Pulse Pulse Resp BP Pulse Ox O2 Del Method 08/04/24 08:04 36.5 C 60 18 132/81 98 Room Air 08/04/24 08:00 Room Air 08/04/24 07:00 63 08/04/24 03:00 36.5 C 77 12 135/85 96 Room Air 08/04/24 01:17 69 08/04/24 00:47 36.7 C 87 16 146/97 H 95 Room Air 08/04/24 00:39 69 08/04/24 00:04 90 Laboratory Results Short CBC 08/04/24 Range/Units 06:51 WBC 17.99 H (4.8-10.8) K/ul Hgb 12.2 (12.0-16.0) g/dl Hct 37.9 (37.0-47.0) % Plt Count 281 (130-400) K/uL BMP 08/04/24 06:51 Sodium 137 Potassium 3.9 Chloride 107 Carbon Dioxide 23 BUN 19 Creatinine 0.63 Glucose 91 Calcium 9.2 I have independently reviewed and interpreted patient's cbc, bmp, CSF results Medications Administered Current Inpatient Medications Acetaminophen (Acetaminophen 325 Mg Tab) 650 mg PO Q4H PRN PRN Reason: Pain or Fever Stop: 09/02/24 01:00 Acetazolamide (Acetazolamide 500 Mg Capcr) 500 mg PO BID ANNA Stop: 09/02/24 20:59 Last Admin: 08/04/24 09:47 Dose: 500 mg Betamethasone Valerate (Betamethasone Alice 0.1% Cr 15 Gm) 1 appln TOP BID ANNA Stop: 09/02/24 08:59 Last Admin: 08/04/24 10:33 Dose: 1 appln Buspirone HCl (Buspirone 5 Mg Tab) 5 mg PO BID ANNA Stop: 09/02/24 20:59 Last Admin: 08/04/24 09:30 Dose: 5 mg Escitalopram Oxalate (Escitalopram Oxalate 10 Mg Tab) 5 mg PO PM ANNA Stop: 09/02/24 20:59 Last Admin: 08/03/24 21:31 Dose: 5 mg Fluticasone Propionate (Fluticasone Propionate Na Spr 16 Gm Btl) 2 sprays NA QAM PRN PRN Reason: Congestion Stop: 09/02/24 01:00 Promethazine HCl (Phenergan) 12.5 mg in 50.5 mls @ 202 mls/hr IV Q6H PRN PRN Reason: Nausea And Vomiting Stop: 09/02/24 01:00 Loratadine (Loratadine 10 Mg Tab) 10 mg PO HS ANNA Stop: 09/02/24 20:59 Last Admin: 08/03/24 21:32 Dose: 10 mg Melatonin (Melatonin 3 Mg Tab) 4.5 mg PO HS ANNA Stop: 09/02/24 20:59 Last Admin: 08/03/24 21:32 Dose: 4.5 mg Nitroglycerin (Nitroglycerin Sl 0.4 Mg/Tab Tab) 0.4 mg SL Q5M PRN PRN Reason: Chest Pain Stop: 09/02/24 01:00 Polyethylene Glycol (Polyethylene (Miralax) 17 Gm Pack) 17 gm PO DAILY PRN PRN Reason: Constipation Stop: 09/02/24 01:00 Vitamin D (Cholecalciferol 25 Mcg (1000 Units) Tab) 25 mcg PO DAILY ANNA Stop: 09/02/24 08:59 Last Admin: 08/04/24 09:47 Dose: 25 mcg
[2024-08-04] MEDS: FAMOTIDINE 20MG IV PUSH 20 MG/5 ML SYR IV STA (17:35)
[2024-08-05 09:35] LABS: Hematocrit (blood only) 39.1 % (37.0-47.0); Hemoglobin 12.4 g/dl (12.0-16.0); Mean Corpuscular Hemoglobin 28.8 pg (25.0-34.0); Mean Corpuscular Hgb Conc 31.7 g/dL (32.0-36.0); Mean Corpuscular Volume 90.9 fL (80.0-100.0); Mean Platelet Volume 9.9 fL (9.4-12.4); Platelet Count 273 K/uL (130-400); RDW Coefficient of Variation 14.2 % (11.5-14.5); RDW Standard Deviation 47.2 fL (36.4-46.3); White Blood Count 11.34 K/ul (4.8-10.8)
--- NOTE | 2024-08-05 11:58 | Electrocardiogram Report ---
Test Reason : Blood Pressure : */* mmHG Vent. Rate : 63 BPM Atrial Rate : 63 BPM P-R Int : 158 ms QRS Dur : 88 ms QT Int : 422 ms P-R-T Axes : 13 -1 20 degrees QTcB Int : 431 ms Normal sinus rhythm Moderate voltage criteria for LVH, may be normal variant Inferior infarct (cited on or before 20-Jul-2024) Abnormal ECG When compared with ECG of 03-Aug-2024 05:18, Nonspecific T wave abnormality no longer evident in Lateral leads QT has shortened Confirmed by Paulino Enamorado ([id number]) on 08/05/2024 11:58:23 AM Referred By: REFERRED SELF Confirmed By: Paulino Enamorado
[2024-08-05 13:43] VITALS: TEMP 98.2
[2024-08-05 15:58] VITALS: BP 134/92; RESP 18; O2SAT 96
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
[2024-08-05 17:11] LABS: Calcium 9.3 mg/dl (8.6-10.3); Magnesium 2.3 mg/dl (1.7-2.4); Potassium 3.9 mmol/L (3.5-5.1)
[2024-08-05 17:17] LABS: BUN Creatinine Ratio 28.2 (10-20); Creatinine Clr Calc Pharmacy 112.4 ml/min; Phosphorus 4.3 mg/dl (2.5-4.9)
[2024-08-05 17:18] LABS: Troponin I High Sensitivity 6.1 pg/ml (0-14)
[2024-08-05 17:45] VITALS: PULSE 92
[2024-08-06 17:02] LABS: CSF, LDH 11 U/L (<=25); Lyme DNA PCR CSF or Synovial Not Detected (Not Detected); Lyme DNA Source CSF
== END 2024-08-05 18:00 | disposition home or self-care (01) | DRG 103 ==
LOC: ED 14:57 → EDINP 22:24 → SUATTDRO 22:24 → EDINP 08-03 01:01 → 2S 08-03 03:38 → 2N 08-04 00:43 → 2W 08-04 01:21

== ENCOUNTER 2024-08-22 15:52 | Inpatient (IN) ==
--- OUTSIDE RECORDS SUMMARY | 2024-08-22 15:58 | External Medical Summary ---
Author Name Unknown Address Unknown Organization [id number]:LABORATORY [facility] - [address] [place] [address] Laboratory Report Ordering Provider Test Date Status ANGELESROLANDOGERHARD LYMAN 08/21/2024 11:49:09 Final Observation Date Value Abnormality Reference (Units ) Status Vitamin B12 08/21/2024 11:49:09 [id number] (pg/mL) Final Performing Location LABORATORY [facility] - [address] [place] [address]
--- OUTSIDE RECORDS SUMMARY | 2024-08-22 15:58 | External Medical Summary ---
Author Name Unknown Address Unknown Organization K01:LABORATORY [facility] - [address] [place] [address] Laboratory Report Ordering Provider Test Date Status GERARDO REYNOSO NURA 08/21/2024 11:49:09 Final Observation Date Value Abnormality Reference (Units ) Status Phosphate 08/21/2024 11:49:09 3.1 2.5-4.8 (m g/dL) Final Performing Location LABORATORY [facility] - [address] [place] [address]
--- OUTSIDE RECORDS SUMMARY | 2024-08-22 15:58 | External Medical Summary | Summary of Care ---
Author Name Unknown Organization [facility] Address [address] [place] [address] Phone [phone] Care Team Providers Care Nurse Wound Care Name Role Phone Ludy Bob MD Primary Care Pr ovider Reason for Visit * Reason Comments Outpatient Testing Encounter Details Date Type Department Care Team ([facility] st Contact Info) Description 08/21/2024 11:50 AM EST Laboratory Laboratory [address] [place] [phone] [address] [place] [address] Insulin resistance; Other chest pain; Chemical exposure; History of vitamin D deficiency; Leukocytosis, unspecified type; BMI 45.0-49.9, adult (HCC); Atypical chest pain; Dizziness; Benign intracranial hypertension syndrome; HLA B27 positive; Family history of early CAD; Thoracic degenerative disc disease; MyCode Research Other*[id number]; TINA (generalized anxiety disorder) Allergies Active Allergy [...] as of this encounter (statuses as of 08/21/2024) Medications melatonin 1 MG Tablet Take 3 Tablets by mouth at bedtime. Active Magnesium 250 MG Oral Tablet Take 1 Tablet by mouth in the morning. Active OneTouch Ultra In Vitro Strip (Glucose Blood)Indications :Prediabetes,Hypo glycemia, unspecified TESTING 4-5 TIMES PER DAY 500 Strip 1 4 Active Tacrolimus 0.1 % External Ointment (Protopic) as needed. 4 Active Clobetasol Propionate 0.05 % External [...] THE MORNING 90 Tablet 3 5 Active Vitamin D 50 MCG (2000 UT) Oral Capsule Take 2,000 Units by mouth in the morning. 90 Capsule 1 5 Active acetaZOLAMIDE 250 MG Oral Tablet (Diamox) Take 1 Tablet by mouth in the morning and 1 Tablet before bedtime. 5 Active Ozempic (0.25 or 0.5 MG/DOSE) 2 MG/3ML Solution Pen-injector (Semaglutide(0.25 or 0.5MG/DOS))Indica tions:Morbid obesity due to excess calories (HCC),Abnormal weight gain Inject 0.5 mg under the skin once a week. 9 mL 5 Active documented as of this encounter (statuses as of 08/21/2024) Active Problems Problem Noted Date Diagnosed Date [...] as of this encounter (statuses as of 08/21/2024) Resolved Problems Problem Noted Date Diagnosed Date [...] as of this encounter (statuses as of 08/21/2024) Immunizations Name Administration Dates Next Due Hepatitis [...] Recorded PHQ Adult Total Score 3 05/25/2024 Hunger Vital Sign Answer Date Recorded Within the past 12 months, y ou worried that your food would run out before you got the money to buy more. Never true 08/09/19 25 Within the past 12 months, t he food you bought just didn't last and you didn't have money to get more. Never true 08/09/2024 Childcare Answer Date Recorded Do you feel overwhelmed with taking care of a child, family member or friend? No 08/09/2024 Does your family need help f inding childcare? (Household - for ages 0-17 years) Not on file 08/09/2024 Clothing Answer Date Recorded Have you been unable to get clothing when it was really needed? No 08/09/2024 Is your family able to get c lothes or diapers when needed? (Household - for ages 0-17 years) Not on file 08/09/2024 Personal Safety Answer Date Recorded Do you feel unsafe or have concerns for your saf ety? No 08/09/2024 Do you have concerns for you r family's safety? (Household - for ages 0-17 years) Not on file 08/09/2024 Utilities Answer Date Recorded Do you have trouble paying y our heating, water, or electric bill? No 08/09/2024 Is your family able to pay t he heat, water, or electric bill? (Household - for ages 0-17 years) Not on file 08/09/2024 Does your family have access to good internet? (Household - for ages 0-17 years) Not on file 08/09/2024 Employment Status Answer Date Recorded Are you unemployed or without regular income? No 08/09/2024 Does the household have a re gular source of income? (Household - for ages 0-17 years) Not on file 08/09/2024 Social Connections Answer Date Recorded How often do you feel lonely or isolated from th ose around you? Never 08/09/2024 Financial Resource Strain Answer Date R ecorded Do you have any trouble payi ng for your medications, or do you think you might in the future? No 08/09/2024 Does your family have troubl e paying for medicine? (Household - for ages 0-17 years) Not on file 08/09/2024 Transportation Needs Answer Date Record ed Do you have trouble getting a ride to medical visits or work? (Adult - for ages 18 years and over) Not on file 08/09/2024 Does your family have a hard time getting a ride to doctors visits? (Household - for ages 0-17 years) Not on file 08/09/2024 Has lack of transportation k ept you from medical appointments, meetings, work, or from getting things needed for daily living? Check all that apply. No 08/09/2024 Do you (or your family) have trouble finding or paying for a ride (transportation)? (Household - for ages 0-17 years) Not on file 08/09/2024 Housing Stability Answer Date Recorded Do you currently live in a s helter or have no steady place to sleep at night? No 08/09/2024 Do you think you are at risk of becoming homeless? (Adult - for ages 18 years and over) Not on file 08/09/2024 Does your family worry about paying for your home or becoming homeless? (Household - for ages 0-17 years) Not on file 0 08/09/2024 Are you homeless or worried that you might be in the future? No 08/09/2024 Are you (or your family) suzanne eless or worried that you might be in the future? (Household - for ages 0-17 years) Not on file Food Insecurity Answer Date Recorded Within the past 12 months, y ou worried that your food would run out before you got the money to buy more. Never true 08/09/19 25 Within the past 12 months, t he food you bought just didn't last and you didn't have money to get more. Never true 08/09/2024 Do you need food for this week? No 08/09/2024 Comments No Sex and Gender Information Value Date Recorded Sex Assigned at Female 07/24/2023 9:15 AM EST Legal Sex Female 5:59 AM EST Gender Identity Female 07/24/2023 9:15 AM EST Sexual Orientation Straight 08/09/2024 10 :04 AM EST documented as of this encounter Functional Status [...] Care Team (Late st Contact Info) Description 08/28/2024 9:00 AM EDT Office Visit Cardiology, [address] [place] [address] Keisha Oconnell MD [address] [place] [address] [place] [address] 08/28/2024 11:20 AM EDT Office Visit Family [address] [place] [phone] Ludy Bob MD [address] [place] [address] [place] [phone] 09/07/2024 2:00 PM EDT Office Visit Rheumatology [address] [place] [phone] Buddy Yañez MD [address] [place] [address], [place] [address] 10/09/2024 11:00 AM EDT [address] [phone] Ludy Bob MD [address] [place] [address] [place] [phone] 05/26/2025 9:00 AM EST Office Visit Family [address] [place] [phone] Angela Raza MD [address] [place] [address] [place] [phone] Pending Results Name Type Priority Associated Diagnoses Date /Time COMPREHENSIVE METABOLIC PANEL Lab Routine Insulin resistance 08/21/2024 11:49 AM EST LIPID PANEL WITH DIRECT LDL IF TG IS HIGH Lab Routine Insulin resistance 08/21/2024 11:49 AM EST HEMOGLOBIN A1C Lab Routine Insulin resistance 08/21/2024 11:49 AM EST 25-HYDROXY VITAMIN D Lab Routine Other chest pain Chemical exposure History of vitamin D deficiency 08/21/2024 11:49 AM EST VITAMIN B12 Lab Routine Other chest pain History of vitamin D deficiency 08/21/2024 11:49 AM EST CBC WITH WBC DIFFERENTIAL Lab Routine Leukocytosis, unspecified type 08/21/2024 11:49 AM EST MAGNESIUM Lab Routine Dizziness 08/21/2024 11:49 AM EST PHOSPHORUS Lab Routine Dizziness 08/21/2024 11:49 AM EST TSH WITH FREE T4 IF INDICATED Lab Routine Dizziness 08/21/2024 11:49 AM EST MYCODE INITIAL ADULT Lab Routine MyCode Research Other*[id number] 08/21/2024 11:49 AM EST CBC Lab Routine Leukocytosis, unspecified type 08/21/2024 11:49 AM EST DIFFERENTIAL, AUTOMATED Lab Routine Leukocytosis, unspecified type 08/21/2024 11:49 AM EST MYCODE INITIAL ADULT-PINK Lab Routine MyCode Research Other*[id number] 08/21/2024 11:49 AM EST MYCODE SST1 Lab Routine MyCode Research Other*[id number] 08/21/2024 11:49 AM EST MYCODE SST2 Lab Routine MyCode Research Other*[id number] 08/21/2024 11:49 AM EST PAIN MANAGEMENT DRUG PANEL, URINE Lab Routine TINA (generalized anxiety disorder) 08/21/2024 11:55 AM EST EXTRA URINE ALIQUOT Lab Routine TINA (generalized anxiety disorder) 08/21/2024 11:55 AM EST Health Maintenance Due Date Last Done Comments HIV Screening 09/22/2002 Albumin/Creatinine Ratio 09/22/2005 Pneumococcal Vaccine: Pediatrics (0 to 5 Years) and At-Risk Patients (6 to 18 Years and 19+ Years) (1 of 2 - PCV) 09/22/2006 HPV/Co-Test 09/22/2017 COVID-19 Vaccine ( season) 2024 Influenza Vaccine (FLU shot) (#1) 2024 03/25/2018, 05/07/2011 Hepatitis B Vaccine (3 of 3 - 3-dose series) 07/20/2024 05/25/2024, 03/17/1995 DTap/Tdap Vaccines (3 - Td or Tdap) 03/17/2025 03/17/2015, 01/04/2005 Depression Monitoring 05/25/2025 05/25/2024 Cervical Cancer Screening 07/02/2025 Pap Smear 07/02/2025 07/02/2022, 12/0 09/2017, 11/03/2012, Additional history exists GFR 08/13/2025 08/13/2024, 06/18, 07/09/2024, Additional history exists Diabetes Screening 08/13/2027 08/13/2024, 0 07/14/2024, 07/09/2024, Additional history exists HPV (Gardasil) Vaccine Aged Out No lo nger eligible based on patient's age to complete this topic MENINGOCOCCAL (MENACTRA/MENVEO) Aged Out No longer eligible based on patient's age to complete this topic Meningitis B Vaccine (Bexsero/Trumemba) Aged Out No longer eligible based on patient's age to complete this topic documented as of this encounter Medical Devices Not on filedocumented as of this encounter Visit Diagnoses Diagnosis Insulin resistance Dysmetabolic Syndrome X Other chest pain Chemical exposure Contact with and (suspected) exposure to other potentially hazardous chemicals History of vitamin D deficiency Personal history of nutritional deficiency Leukocytosis, unspecified type BMI 45.0-49.9, adult (HCC) Body Mass Index 45.0-49.9, adult Atypical chest pain Other chest pain Dizziness Dizziness and giddiness Benign intracranial hypertension syndrome Benign intracranial hypertension 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 No Care Teams Nurse Wound Care Relationship Specialty Start Date End Date Ludy Bob MD [address] [place] [address] [place] [phone] PCP - General Family Medicine 08/10/24 documented as of this encounter
--- OUTSIDE RECORDS SUMMARY | 2024-08-22 15:58 | External Medical Summary | Summary of Care ---
Author Name Unknown Organization [facility] Address [address] [place] [address] Phone [phone] Care Team Providers Care Anglesmith Helper Name Role Phone Ludy Bob MD Primary Care Pr ovider Reason for Visit * Reason Onset Date Comments Appointment 08/17/2024 MRI T SPINE AND EXERCISE STRESS Encounter Details Date Type Department Care Team (Late st Contact Info) Description 08/17/[address] [phone] Ludy Bob MD [address] [place] [phone] Appointment (MRI T SPINE AND EXERCISE STRE... Allergies Active Allergy Reactions Criticality Noted Date [...] Tablet by mouth in the morning. Active [employer] TechnologiesTouch Ultra In Vitro Strip (Glucose Blood)Indication s:Prediabetes,Hy poglycemia, unspecified TESTING 4-5 TIMES PER DAY 500 Strip 1 10/11/19 24 Active Tacrolimus 0.1 % External Ointment (Protopic) as needed. 12/13/19 24 Active Clobetasol Propionate 0.05 % External [...] MORNING 90 Tablet 3 07/17/19 25 Active Vitamin D 50 MCG (2000 UT) Oral Capsule Take 2,000 Units by mouth in the morning. 90 Capsule 1 08/03/19 25 Active acetaZOLAMIDE 250 MG Oral Tablet (Diamox) Take 1 Tablet by mouth in the morning and 1 Tablet before bedtime. 08/14/19 25 Active Ozempic (0.25 or 0.5 MG/DOSE) 2 MG/3ML Solution Pen-injector (Semaglutide(0.2 5 or 0.5MG/DOS))Indic ations:Morbid obesity due to excess calories (HCC),Abnormal weight gain Inject 0.5 mg under the skin once a week. 9 mL 08/18/19 25 Active Loratadine 10 MG Oral Tablet (Claritin) Take 1 Tablet by mouth daily as needed for Rhinitis. 025 Discontinued documented as of this encounter [...] Telephone Encounter - Jacob Ramirez OSA - 08/21/2024 4:06 PM EST MRI T SPINE AUTH # [id number]. I faxed order/demo/auth info to [facility]. They will call pt w/an appt * Telephone Encounter - Jacob Ramirez OSA - 08/20/2024 2:50 PM EST STRESS ECHO- NO AUTH NEEDED. I faxed order and auth, demo's to [facility] [phone]. They will call pt w/ an appt. * Telephone Encounter - Jacob Ramirez OSA - 08/17/2024 1:44 PM EST Video appt today 08/17/24 MRI T SP- pt wants done at [facility]. I sent email to get auth. STRESS ECHO- pt wants this done at [facility] hosp. I sent email to obtain auth. documented in this encounter Plan of Treatment Upcoming Encounters Date Type Department Care Team (Late st Contact Info) Description 08/28/2024 9:00 AM EDT Office Visit Cardiology, [facility] [address] [facility] [place] [address] Keisha Oconnell MD [address] [place] [address] 08/28/2024 11:20 AM EDT Office Visit Family Medicine [address] [place] [phone] Ludy Bob MD [address] [place] [address] [place] 09/07/2024 2:00 PM EDT Office Visit Rheumatology [address] [place] [phone] Buddy Yañez MD [address] [place] [address] [place] [address] 10/09/2024 11:00 AM EDT Office Visit [address] [phone] Ludy Bob MD [address] [place] [address] [place] [phone] 05/26/2025 9:00 AM EST Office Visit [address] [phone] Angela Raza MD [address] [place] [address] [place] [phone] Health Maintenance Due Date Last Done Comments [...] 07/02/2022, 09/2017, 11/03/2012, Additional history exists GFR 08/13/2025 08/13/2024, 06/18, 07/09/2024, Additional history exists Diabetes Screening 08/22/2027 08/21/2024, 0 08/13/2024, 07/14/2024, Additional history exists HPV (Gardasil) Vaccine Aged [...] Power of Attor wesley? No Care Teams Anglesmith Helper Relationship Specialty Start Date End Date Ludy Bob MD [address] [place] [address] [place] [phone] PCP - General Family Medicine 08/10/24 documented as of this encounter
--- OUTSIDE RECORDS SUMMARY | 2024-08-22 15:58 | External Medical Summary ---
Author Name Unknown Address Unknown Organization [id number]:[facility]ATORY [facility] [place] - [address] [place] [address] Laboratory Report Ordering Provider Test Date Status GERARDO REYNOSO SEIFERT 08/21/2024 11:49:09 Final Deficient: <20 ng/mL
Ins ufficient: 20-29 ng/mL
Recommended/Optimum:30-50 ng/mL

Vitamin D intoxication is rare. If suspicious of Vitamin D toxicity, evaluation of serum Calcium and PTH is recommended. Observation Date Value Abnormality Reference (Units ) Status 25-OH Vitamin D total 08/21/2024 11:49:09 12 Below low normal >19 (ng/mL) Final Performing Location [facility]ORY [facility] [place] - [address] [place] [address]
--- OUTSIDE RECORDS SUMMARY | 2024-08-22 15:58 | External Medical Summary ---
Author Name Unknown Address Unknown Organization K01:[facility] - [address] [place] [address] Laboratory Report Ordering Provider Test Date Status ANGELESAUGUSTA HORTONConstantine MARQUISNURA 08/21/2024 11:49:09 Final Observation Date Value Abnormality Reference (Units ) Status Magnesium 08/21/2024 11:49:09 2.1 1.5-2.6 (m g/dL) Final Performing Location [facility] - [address] [place] [address]
--- OUTSIDE RECORDS SUMMARY | 2024-08-22 15:58 | External Medical Summary | Summary of Care ---
Author Name Unknown Organization [facility] Address [address] [place] [address] Phone [phone] Care Team Providers Care Security Nurse Name Role Phone Ludy Bob MD Primary Care Pr ovider Reason for Referral * Evaluate & Treat - Unlimited Visits (Within 30 days (routine)) - Authorized Specialty Diagnoses / Procedures Referred By Contact Referred To Contact Cardiovascular Medicine / Cardiology Diagnoses Atypical chest pain Ludy Bob MD [address] [place] [address] [place] [phone] Phone: tel: fax: Referral ID Status Reason Start Date Expiration Date Visits Requested Visits Authorized [id number] Authorized Specialty Services Required 08/21/2024 1 1 Question Answer Referral Priority Within 30 days (routine) For which of the following conditions are you referring? Other Condition Not Listed Other Condition: labile blood pressures; chest pains and palpitations Where should this appointment be scheduled? [facility] Reason for Visit * Reason Comments Acute Encounter Details Date Type Department Care Team (Late st Contact Info) Description 08/21/2024 10:20 AM EST Telemedicine Family Medicine [address] [place] [phone] Ludy Bob MD [address] [place] [address] [place] [phone] TINA (generalized anxiety disorder)*; Anxiety about health; HUGO (obstructive sleep apnea); Atypical chest pain; Elevated blood pressure, situational; BMI 45.0-49.9, adult (HCC); Elevated alkaline phosphatase level; Benign intracranial hypertension syndrome Allergies Active Allergy Reactions Criticality Noted Date [...] a week. 9 mL 08/18/19 25 Active Desloratadine 5 MG Oral Tablet (Clarinex) Take 1 Tablet by mouth in the morning. for allergies. 30 Tablet 11 08/19/19 25 025 Discontinued documented as of this encounter [...] No 08/09/2024 Does the household have a [facility] source of income? (Household - for ages [...] of Assessment Author Yes 02/15/2021 1:34 AM EDT Kaur Marx RN * Because of a physical, mental, or emotional condition, do you have difficulty doing errands alone such as visiting a doctors office or shopping? (15 years old or older) Answer Date of Assessment Author Yes 02/15/2021 1:34 AM EDT Kaur Marx RN documented as of this encounter Mental Status * Because of a physical, mental, or emotional condition, do you have serious difficulty concentrating, remembering, or making decisions? (5 years old or older) Answer Entry Date Author No 02/15/2021 1:34 AM RODGERT Kaur Marx RN documented in this encounter Patient Instructions * Patient Instructions* Ludy Bob MD - 08/21/2024 10:32 AM EST Baron Pennington in [place] documented in this encounter Progress Notes * Ludy Bob MD - 08/21/2024 10:30 AM EST Images from the original note were not included. History of Present Illness Verna Mckeon is a 38 year old female that presents for No chief complaint on file. History of Present Illness The patient, with a history of intracranial hypertension, sleep apnea, and liver issues, presents with multiple complaints. The primary concern is severe anxiety, which has been exacerbated by persistent dizziness, ringing in the ears, and vision problems. Back in the ED yesterday. The patient reports these symptoms have been ongoing for six weeks and are causing significant distress. The patientalso reports elevated blood pressure readings, particularly when active, with readings sometimes reaching 150/105. The patient has stopped taking Buspar due to feeling like a "zombie" and has also discontinued Diamox, prescribed by a neurologist, due to disagreement with the diagnosis and side effects. The patient is currently on Lexapro for anxiety. Physical Exam There were no vitals taken for this visit. Due to nature of the visit Limited physical exam due to video visit Physical Exam Constitutional: General: Pt is not in acute distress. Appearance: Normal appearance. Pt is not ill-appearing. HENT: Head: Normocephalic and atraumatic. Musculoskeletal: Cervical back: Normal range of motion. Neurological: Mental Status: Pt is alert and oriented to person, place, and time. Psychiatric: Mood and Affect: Mood anxious. Behavior: Behavior normal. I have reviewed most recent labs CMP, CBC, and Magnesium Assessment and Plan Assessment & Plan Anxiety Severe anxiety, worsened by health concerns, contributes to her symptoms. Lexapro will be continued, while Buspar is discontinued due to side effects. Ativan is effective at a low dose. Prescribe Ativan after a urine drug screen and signing a medication contract. Continue Lexapro and encourage ongoing counseling. Schedule an in-person visit for further evaluation. Eustachian Tube Dysfunction Ear symptoms may be related to eustachian tube dysfunction, as similar past symptoms required ear tubes. Schedule an in-person visit for an ear examination and undergo eustachian tube dysfunction andhearing tests. Intracranial Hypertension Previously diagnosed intracranial hypertension, with Diamox discontinued due to inconsistent symptoms. Serious neurological conditions have been ruled out, and anxiety may contribute to symptoms. Await results of the upcoming EEG. Hypertension She reports transient blood pressure elevations during activity, with normal levels at rest. A cardiology referral is suggested for potential dysautonomia or small fiber neuropathy. Refer to cardiology for further evaluation and advise monitoring blood pressure after resting. Sleep Apnea Mild sleep apnea with CPAP intolerance. She is interested in dental devices as an alternative. Provide information for a dental sleep medicine specialist and advise contacting insurance for coverage details. Consider home dental devices if insurance does not cover specialists and discuss the potential for a repeat sleep study if needed. Mild Hepatomegaly Mild hepatomegaly with slightly elevated alkaline phosphatase, likely due to fatty infiltration, poses no immediate concern. Consider additional liver function tests if symptoms suggest liver involvement. Follow-up She requires follow-up for anxiety, blood pressure, and ear symptoms. The cardiology referral is inprocess, and she is awaiting stress test and EEG results. Schedule an in-person appointment next week for a comprehensive evaluation. Ensure the cardiology referral is processed and follow up on the r esults of the stress test and EEG. TINA (generalized anxiety disorder); Anxiety about health Is on lexapro. Didn't tolerate buspar. Would be reasonable to try a low dose benzo for panic attacks and "downward spirals", will need to come in today for a UDS and contract. - PAIN MANAGEMENT DRUG PANEL, URINE; Future HUGO (obstructive sleep apnea) Atypical chest pain Has a stress test scheduled. Wendy reviewed with Cardiology via Ask a Doc, benign. She would like to see Cardiology regarding the concerns and blood pressure changes for another opinion, entered referral. - CARDIOLOGY REFERRAL OP Elevated blood pressure, situational Suspect related to anxiety. Rec taking after she has sat for 5 minutes to get accurate assessments.Transient elevations with activity are normal BMI 45.0-49.9, adult (HCC) Elevated alkaline phosphatase level Will monitor, mild in nature. Suspect some NAFLD likely Benign intracranial hypertension syndrome Following with neuro. Ativan to [facility] after UDS and sign contract Wrap-Up Follow Up: Return in about 1 week (around 08/28/2024) for 40 min please; in person, Return with Physician. | For: 40 min please; in person, Return with Physician Time: I spent a total of 30-39 minutes (exact time 31 mins) on the date of service in [...] during the encounter consented to its use. Patient location: HOME. I was in a hospital or clinic location. After connecting through televideo,patient was verified with two unique identifiers. Patient (or authorized legal in store representative) was then informed that this was [...] 08/28/2024 9:00 AM EDT Office Visit Cardiology, [address] [place] [address] Keisha Oconnell MD [address] [place] [address] R[place] [address] 08/28/2024 11:20 AM EDT Office Visit Family [address] [phone] Ludy Bob MD [address] [place] [address] [place] [phone] 09/07/2024 2:00 PM EDT Office Visit Rheumatology [address] [place] [phone] Buddy Yañez MD [address] [place], [place] [address] [address] 10/09/2024 11:00 AM EDT Office Visit [address] [phone] Ludy Bob MD [address] [place] [address] [place] [phone] 05/26/2025 9:00 AM EST Office Visit [address] [phone] Angela Raza MD [address] [place] [address] [place] [phone] Pending Results Name Type Priority Associated Diagnoses Date /Time PAIN MANAGEMENT DRUG PANEL, URINE Lab Routine TINA (generalized anxiety disorder) 08/21/2024 11:55 AM EST Scheduled Orders Name Type Priority Associated Diagnoses Orde r Schedule PAIN MANAGEMENT DRUG PANEL, URINE Lab Routine TINA (generalized anxiety disorder) Expected: 08/21/2024 (Approximate), Expires: 08/21/2025 Scheduled Referrals Name Type Priority Associated Diagnoses Orde r Schedule CARDIOLOGY REFERRAL OP Referral Within 30 days (routine) Atypical chest pain Ordered: 08/21/2024 Health Maintenance Due Date Last Done Comments [...] as of this encounter Visit Diagnoses Diagnosis TINA (generalized anxiety disorder)- Primary Generalized anxiety disorder Anxiety about health HUGO (obstructive sleep apnea) Obstructive sleep apnea (adult) (pediatric) Atypical chest pain Other chest pain Elevated blood pressure, situational Elevated blood pressure reading without diagnosis of hypertension BMI 45.0-49.9, adult (HCC) Body Mass Index 45.0-49.9, adult Elevated alkaline phosphatase level Other nonspecific abnormal serum enzyme levels Benign intracranial hypertension syndrome Benign intracranial hypertension documented in this encounter Advance Directives * [...] Power of Attor wesley? No Care Teams Security Nurse Relationship Specialty Start Date End Date Ludy Bob MD [address] [place] [address] [place] [phone] PCP - General Family Medicine 08/10/24 documented as of this encounter
--- OUTSIDE RECORDS SUMMARY | 2024-08-22 15:58 | External Medical Summary ---
Author Name Unknown Address Unknown Organization [id number]:LABORATORY [facility] [place] - [address] [place] [facility] [place] [address] Laboratory Report Ordering Provider Test Date Status USHA KEATING 08/21/2024 11:49:09 Final Observation Date Value Abnormality Reference (Units ) Status BUN 08/21/2024 11:49:09 11 6-20 (mg/dL) Final Creatinine 08/21/2024 11:49:09 0.6 0.5-1.0 (mg/dL) Final Glomerular filtration rate/1.73 sq M.predicted [Volume Rate/Area] in Serum, Plasma or Blood by Creatinine-based formula (CKD-EPI) 08/21/2024 11:49:09 >90 >=60 (mL/min) Final eGFR is calculated based on the CKD-EPI 2020 equation. Sodium 08/21/2024 11:49:09 141 135-146 (m mol/L) Final Potassium 08/21/2024 11:49:09 4.3 3.5-5.1 (m mol/L) Final Cl 08/21/2024 11:49:09 105 98-107 (mm ol/L) Final CO2 08/21/2024 11:49:09 22 22-32 (mmo l/L) Final Anion gap 08/21/2024 11:49:09 14 7-15 (mmol /L) Final Glucose 08/21/2024 11:49:09 113 70-120 (mg /dL) Final Albumin 08/21/2024 11:49:09 4.0 3.8-5.0 (g /dL) Final AST (Aspartate aminotransferase) 08/21/2024 11:49:09 14 10-35 (U/L) Fin al Alk Phos 08/21/2024 11:49:09 142 Above high normal 35 -130 (U/L) Final Bilirubin, Total 08/21/2024 11:49:09 0.2 <=1 .2 (mg/dL) Final Calcium 08/21/2024 11:49:09 9.1 8.4-10.2 ( mg/dL) Final Protein 08/21/2024 11:49:09 6.7 6.0-8.3 (g /dL) Final ALT (Alanine aminotransferase) 08/21/2024 11:49:09 18 10-35 (U/L) Bryan monreal Performing Location LABORATORY [facility] [place] - [facility] [place] [address]. [facility] [address]
--- OUTSIDE RECORDS SUMMARY | 2024-08-22 15:58 | External Medical Summary | Summary of Care ---
Author Name Unknown Organization [facility] Address [address] [place] [address] Phone [phone] Care Team Providers Care Service Station Equipment Mechanic Name Role Phone Ludy Bob MD Primary Care Pr ovider Reason for Visit * Reason Comments Outpatient Testing Encounter Details Date Type Department Care Team ([facility] st Contact Info) Description 08/21/2024 12:00 PM [facility] Laboratory Laboratory [address] [place] [phone] [address] [place] [address] Arrived Allergies Active Allergy Reactions Criticality Noted Date [...] the skin once a week. 9 mL Active documented as of this encounter (statuses [...] 08/28/2024 9:00 AM EDT Office Visit Cardiology, [facility] [address] [facility] [place] [address] Keisha Oconnell MD [address] [place] [address] [place] [id number] 08/28/2024 11:20 AM EDT Office Visit Family Medicine [address] [phone] Ludy Bob MD [address] [place] [address] [place] [phone] 09/07/2024 2:00 PM EDT Office Visit Rheumatology [address] [place] [phone] Buddy Yañez MD [address] [place] [address], [place] [address] 10/09/2024 11:00 AM EDT Office Visit [address] [phone] Ludy Bob MD [address] [place] [address] [place] [phone] 05/26/2025 9:00 AM EST Office Visit Family [address] [place] [phone] Angela Raza MD [address] [place] [address] [place] [address] Health Maintenance Due Date Last Done Comments [...] Power of Attor wesley? No Care Teams Service Station Equipment Mechanic Relationship Specialty Start Date End Date Ludy Bob MD [address] [place] [address] [place] [phone] PCP - General Family Medicine 08/10/24 documented as of this encounter
--- OUTSIDE RECORDS SUMMARY | 2024-08-22 15:58 | External Medical Summary ---
Author Name Unknown Address Unknown Organization K01[place] [facility] [place] [address] [facility] [place] [address] Laboratory Report Ordering Provider Test Date Status GERARDO REYNOSO 08/21/2024 11:49:09 Final Observation Date Value Abnormality Reference (Units ) Status SYNC LEUKOCYTES IN BLOOD BY AUTOMATED COUNT 08/21/2024 11:49:09 8.61 4.00-10.80 (K/uL) Final Segs 08/21/2024 11:49:09 67.9 40.0-75.0 (%) Final Lymphs % 08/21/2024 11:49:09 23.9 18.0-42.0 (%) Final Monos 08/21/2024 11:49:09 4.3 1.0-11.0 (%) Final Eosinophils 08/21/2024 11:49:09 3.0 0.0-6.0 (%) Final Basos 08/21/2024 11:49:09 0.3 0.0-2.0 (%) Final Immature Granulocyte, Percent 08/21/2024 11:49:09 0.6 0.0-2.0 (%) Final Absolute Segs 08/21/2024 11:49:09 5.84 1.80-7.70 (K/uL) Final Lymphs, absolute 08/21/2024 11:49:09 2.06 1.00-4.80 (K/ul) Final Monos, Abs 08/21/2024 11:49:09 0.37 0.00-1.10 (K/uL) Final Eos, Abs 08/21/2024 11:49:09 0.26 0.00-0.70 (K/uL) Final Basos, Abs 08/21/2024 11:49:09 0.03 0.00-0.20 (K/uL) Final Immature Granulocytes, Number 08/21/2024 11:49:09 0.05 0.00-0.20 (K/uL) Final Performing Location [facility] [place] [address] [facility] [address]
--- OUTSIDE RECORDS SUMMARY | 2024-08-22 15:58 | External Medical Summary ---
Author Name Unknown Address Unknown Organization K01:[place] [place] [facility] [place] [address] Laboratory Report Ordering Provider Test Date Status GERARDO REYNOSO 08/21/2024 11:49:09 Final Observation Date Value Abnormality Reference (Units ) Status WBC, Total 08/21/2024 11:49:09 8.61 4.00-10.80 (K/uL) Final RBC 08/21/2024 11:49:09 4.43 3.85-5.15 (M/uL) Final Hemoglobin 08/21/2024 11:49:09 12.6 12.0-15.3 (g/dL) Final HCT 08/21/2024 11:49:09 40.4 36.0-45.2 (%) Final MCV 08/21/2024 11:49:09 91.2 81.5-97.5 (fL) Final MCH 08/21/2024 11:49:09 28.4 27.0-34.0 (pg) Final MCHC 08/21/2024 11:49:09 31.2 32.0-36.0 (g/dL) Final RDW 08/21/2024 11:49:09 13.8 11.5-15.5 (%) Final Platelets 08/21/2024 11:49:09 321 140-400 (K/uL) Final MPV 08/21/2024 11:49:09 10.0 6.6-11.1 (fL) Final Nucleated erythrocytes/100 leukocytes [Ratio] in Blood by Automated count 08/21/2024 11:49:09 0 <=0 (/100 WBCs) Final Performing Location [facility] [place] [address] [place] [address]
--- OUTSIDE RECORDS SUMMARY | 2024-08-22 15:58 | External Medical Summary ---
Author Name Unknown Address Unknown Organization K01:[facility] [place] [address] [facility] [address] [facility] [address] Laboratory Report Ordering Provider Test Date Status GERARDO REYNOSO SEIFERT 08/21/2024 11:49:09 Final Observation Date Value Abnormality Reference (Units ) Status TSH 08/21/2024 11:49:09 3.00 0.27-4.20 (uIU/mL) Final Performing Location [facility] [place] [address] [facility] [address]
--- OUTSIDE RECORDS SUMMARY | 2024-08-22 15:58 | External Medical Summary | Summary of Care ---
Author Name Unknown Organization [facility] Address [address] [place] [address] Phone [phone] Care Team Providers Care Head Turning Machine Operator Name Role Phone Ludy Bob MD Primary Care Pr ovider Reason for Visit * Reason Comments Outpatient Testing Encounter Details Date Type Department Care Team ([facility] st Contact Info) Description 08/21/2024 11:50 AM EST Laboratory Laboratory [address] [place] [phone] [address] [place] [address] Insulin resistance; Other chest pain; Chemical exposure; History of vitamin D deficiency; Leukocytosis, unspecified type; BMI 45.0-49.9, adult (HCC); Atypical chest pain; Dizziness; Benign intracranial hypertension syndrome; HLA B27 positive; Family history of early CAD; Thoracic degenerative disc disease; [employer] Other*[id number]; TINA (generalized anxiety disorder) Allergies Active Allergy [...] 08/28/2024 9:00 AM EDT Office Visit Cardiology, [address] [place] [address] Keisha Oconnell MD [address] [place] [address] [place] [address] 08/28/2024 11:20 AM EDT Office Visit Family [address] [place] [phone] Ludy Bob MD [address] [place] [address] [place] [phone] 09/07/2024 2:00 PM EDT Office Visit Rheumatology [address] [place] [phone] Buddy Yañez MD [address] [place] [address], [place] [address] 10/09/2024 11:00 AM EDT [address] [phone] Ludy Bob MD [address] [place] [address] [place] [phone] 05/26/2025 9:00 AM EST Office Visit Family [address] [place] [address] Angela Raza MD [address] [place] [address] [place] [phone] Pending Results Name Type Priority Associated Diagnoses [...] MYCODE INITIAL ADULT Lab Routine [employer] Other*[id number] 08/21/2024 11:49 AM EST CBC Lab Routine Leukocytosis, unspecified type 08/21/2024 11:49 AM EST DIFFERENTIAL, AUTOMATED Lab Routine Leukocytosis, unspecified type 08/21/2024 11:49 AM EST MYCODE INITIAL ADULT-PINK Lab Routine [employer] Other*[id number] 08/21/2024 11:49 AM EST MYCODE SST1 Lab Routine [employer] Other*[id number] 08/21/2024 11:49 AM EST MYCODE SST2 Lab Routine [employer] Other*[id number] 08/21/2024 11:49 AM EST PAIN MANAGEMENT DRUG [...] thoracic or thoracolumbar intervertebral disc [employer] Other*[id number] TINA (generalized anxiety disorder) Generalized anxiety disorder [...] Power of Attor wesley? No Care Teams Head Turning Machine Operator Relationship Specialty Start Date End Date Ludy Bob MD [address] [place] [address] [place] [phone] PCP - General Family Medicine 08/10/24 documented as of this encounter
--- OUTSIDE RECORDS SUMMARY | 2024-08-22 15:58 | External Medical Summary | Summary of Care ---
Author Name Unknown Organization [facility] Address [address] [place] [address] Phone [phone] Care Team Providers Care Retail Management Trainee Name Role Phone Ludy Bob MD Primary Care Pr ovider Reason for Visit * Reason Onset Date Comments Appointment 08/20/2024 CT/Indira/author ization Encounter Details Date Type Department Care Team ([facility] st Contact Info) Description 08/20/[address] [phone] Ludy Bob MD [address] [place] [phone] Appointment (POP/Indira/authorizatio n ) Allergies Active Allergy Reactions Criticality Noted Date [...] as of this encounter (statuses as of 08/20/2024) Medications melatonin 1 MG Tablet Take 3 [...] once a week. 9 mL 5 Active Desloratadine 5 MG Oral Tablet (Clarinex) Take 1 Tablet by mouth in the morning. for allergies. 30 Tablet 11 5 Active documented as of this encounter (statuses as of 08/20/2024) Active Problems Problem Noted Date Diagnosed Date [...] as of this encounter (statuses as of 08/20/2024) Resolved Problems Problem Noted Date Diagnosed Date [...] as of this encounter (statuses as of 08/20/2024) Immunizations Name Administration Dates Next Due Hepatitis [...] encounter Miscellaneous Notes * Telephone Encounter - Angelina Carter OSA - 08/20/2024 3:27 PM EST Patient wants to have CT T spine at [facility]. I sent message to faviola alcantara to get authorization from insurance. documented in this encounter Plan of Treatment Upcoming Encounters Date Type Department Care Team (Late st Contact Info) Description 08/21/2024 10:20 AM EST Telemedicine Family [address] [place] [phone] Ludy Bob MD [address] [place] [address] [place] [phone] 09/07/2024 2:00 PM EDT Office Visit Rheumatology [address] [place] [phone] Buddy Yañez MD [address] [place] [address], [place] [address] 10/09/2024 11:00 AM EDT Office Visit [address] [place] [phone] Ludy Bob MD [address] [place] [address] [place] [phone] 05/26/2025 9:00 AM EST Office Visit [address] [place] [phone] Angela Raza MD [address] [place] [address] [place] [address] Health Maintenance Due Date Last Done Comments [...] 07/02/2022, 12/09/2017, 11/03/2012, Additional history exists GFR 08/13/2025 08/13/2024, [...] Power of Attor wesley? No Care Teams Retail Management Trainee Relationship Specialty Start Date End Date Ludy Bob MD [address] [place] [address] [place] [phone] PCP - General Family Medicine 08/10/24 documented as of this encounter
--- OUTSIDE RECORDS SUMMARY | 2024-08-22 15:58 | External Medical Summary ---
Author Name Unknown Address Unknown Organization K01:[place] [facility] [place] [address] [facility] [address] Laboratory Report Ordering Provider Test Date Status USHA KEATING 08/21/2024 11:49:09 Final Observation Date Value Abnormality Reference (Units ) Status Triglyceride 08/21/2024 11:49:09 124 <=174 ( mg/dL) Final Triglyceride Reference Range s (mg/dL):
<150 Acceptable
150-174 Borderline high
175-499 High
>=500 Very high Cholesterol 08/21/2024 11:49:09 230 Above high normal <200 (mg/dL) Final Total Cholesterol Reference Ranges (mg/dL):
<200 Desirable
200-239 Borderline high
>=240 High HDL 08/21/2024 11:49:09 41 Below low normal >49 (mg/dL) Final HDL Cholesterol Reference Ra nges (mg/dL):
>=60 High (Desirable)
<50 Low (Undesirable) For Females
<40 Low (Undesirable) For Males NON-HDL CHOLESTEROL 08/21/2024 11:49:09 189 Above high normal <=159 (mg/dL) Final Non-HDL Cholesterol Referenc e Range (mg/dL):
<100 Target level for high risk ASCVD patient
<130 Optimal for general population
130-159 Near optimal for general population
160-189 Borderline High
190-219 High
>=220 Very High LDL, (calculated) 08/21/2024 11:49:09 164 Above high n ormal <=129 (mg/dL) Final LDL Cholesterol Reference Ra nges (mg/dL):
<70 Target level for high risk ASCVD patient
<100 Optimal for general population
100-129 Near optimal for general population
130-159 Borderline high
160-189 High
>=190 Very high Performing Location [place] [facility] [place] [address] [facility] [address]
--- OUTSIDE RECORDS SUMMARY | 2024-08-22 15:58 | External Medical Summary ---
Author Name Unknown Address Unknown Organization K01:[facility] [place] [facility] - [address] [facility] [address] Laboratory Report Ordering Provider Test Date Status USHA KEATING 08/21/2024 11:49:09 Final Observation Date Value Abnormality Reference (Units ) Status HbA1C 08/21/2024 11:49:09 5.5 4.0-5.6 (% ) Final The use of HbA1c to monitor glycemic status is based on normal hemoglobin and HbA composition. This test should not be used in patients with abnormal hemoglobin that affects the half life of the red blood cell or the in vivo glycation rates. Glucose, estimated average 08/21/2024 11:49:09 111 <126 (mg/dL) Final Performing Location [facility] [address] [facility] [facility] [address]
--- OUTSIDE RECORDS SUMMARY | 2024-08-22 15:59 | External Medical Summary | Summary of Care ---
Author Name Unknown Organization [facility] Address [address] [facility] [place] [address] Phone [phone] Care Team Providers Care Critical Care Unit Nurse Name Role Phone Ludy Bob MD Primary Care Pr ovider Reason for Visit * Reason Comments Medication Refill Encounter Details Date Type Department Care Team ([facility] st Contact Info) Description 08/17/2024 Refill Endocrinology [address] [place] [phone] Srini Johnson PA-C [address] [place], [place] [phone] Morbid obesity due to excess calories (HCC); Abnormal weight gain Allergies Active Allergy Reactions Criticality Noted Date [...] as of this encounter (statuses as of 08/17/2024) Medications melatonin 1 MG Tablet Take 3 [...] 4 Active Clobetasol Propionate 0.05 % External SolutionIndicati ons:Psoriasis of scalp,Plaque psoriasis Apply to scalp and behind the ear one daily for up to two weeks. 50 mL 3 4 Active Calcipotriene 0.005 % External Cream (Calcitrene)Becki cations:Plaque psoriasis Apply topically to affected area 2 times a day. Apply to areas of plaque psoriasis 120 g 5 4 Active Calcipotriene 0.005 % External FoamIndications: Psoriasis [...] once a week. 9 mL 5 Active Ozempic (0.25 or 0.5 MG/DOSE) 2 MG/3ML Solution Pen-injector (Semaglutide(0.2 5 or 0.5MG/DOS))Indic ations:Morbid obesity due to excess calories (HCC),Abnormal weight gain Inject 0.5 mg under the skin once a week. 9 mL 06/01/2024 8:25 AM EST 4 025 Discontin ued(Refil l) documented as of this encounter (statuses as of 08/17/2024) Active Problems Problem Noted Date Diagnosed Date [...] as of this encounter (statuses as of 08/17/2024) Resolved Problems Problem Noted Date Diagnosed Date [...] as of this encounter (statuses as of 08/17/2024) Immunizations Name Administration Dates Next Due Hepatitis [...] Entry Date Author No 02/15/2021 1:34 AM EDT Siverling , Kaur R, RN documented in this encounter Miscellaneous Notes * Telephone Encounter - Srini Johnson PA-C - 08/17/2024 12:02 PM EST Signed Prescriptions: Disp Refills Ozempic (0.25 or 0.5 MG/DOSE) 2 MG/3ML Silvana*9 mL 0 Sig: Inject 0.5 mg under the skin once a week.Authorizing Provider: SRINI JOHNSON documented in this encounter Plan of Treatment Upcoming Encounters Date Type Department Care Team (Late st Contact Info) Description 08/21/2024 11:00 AM EST Office Visit Rheumatology [address] [place] [phone] Buddy Yañez MD [address] [place] [address], [place] [address] 10/09/2024 11:00 AM EDT Office Visit Family Medicine [address] [phone] Ludy Bob MD [address] [place] [address] [place] [address] 05/26/2025 9:00 AM EST Office Visit Family Medicine [address] [place] [phone] Angela Raza MD [address] [place] [address] [place] [address] Health Maintenance Due Date Last Done Comments [...] as of this encounter Visit Diagnoses Diagnosis Morbid obesity due to excess calories (HCC) Abnormal weight gain documented in this encounter Advance Directives * [...] Power of Attor wesley? No Care Teams Critical Care Unit Nurse Relationship Specialty Start Date End Date Ludy Bob MD [address] [place] [address] [place] [phone] PCP - General Family Medicine 08/10/24 documented as of this encounter
--- OUTSIDE RECORDS SUMMARY | 2024-08-22 15:59 | External Medical Summary | Summary of Care ---
Author Name Unknown Organization [facility] Address [address] [place] [address] Phone [phone] Care Team Providers Care Phlebotomy Services Representative Name Role Phone Ludy Bob MD Primary Care Pr ovider Encounter Details Date Type Department Care Team (Late st Contact Info) Description 08/17/2024 Orders Only Outcomes Research Department [address] [place], [place] [phone] Kaur Barnes CHRA [facility] Other*[id number] Allergies Active Allergy Reactions Criticality Noted Date [...] and 1 Tablet before bedtime. 5 Active documented as of this encounter [...] 08/21/2024 11:00 AM EST Office Visit Rheumatology [address] [place] [phone] Bdudy Yañez MD [address] [facility] [address] 10/09/2024 11:00 AM EDT Office Visit Family Medicine [address] [place] [phone] Ludy Bob MD [address] [place] [address] [place] [phone] 05/26/2025 9:00 AM EST Office Visit Family Medicine [address] [place] [phone] Angela Raza MD [address] [place] [address] [place] [phone] Scheduled Orders Name Type Priority Associated Diagnoses Orde r Schedule MYCODE INITIAL ADULT Lab Routine [facility] Other*[id number] Expected: 08/17/2024 (Approximate), Expires: 09/06/2025 Health Maintenance Due Date Last Done Comments [...] as of this encounter Visit Diagnoses Diagnosis [facility] Other*[id number] documented in this encounter Advance Directives * [...] Power of Attor wesley? No Care Teams Phlebotomy Services Representative Relationship Specialty Start Date End Date Ludy Bob MD [address] [place] [address] [place] [phone] PCP - General Family Medicine 08/10/24 documented as of this encounter
--- OUTSIDE RECORDS SUMMARY | 2024-08-22 15:59 | External Medical Summary | Summary of Care ---
Author Name Unknown Organization [facility] Address [address] [place] [address] Phone [phone] Care Team Providers Care Beer Still Runner Compounder Name Role Phone Ludy Bob MD Primary Care Pr ovider Reason for Visit * Reason Onset Date Comments Advice 08/17/2024 Encounter Details Date Type Department Care Team ([facility] st Contact Info) Description 08/17/2024 Telephone Family Medicine [address] [phone] Ludy Bob MD [address] [place] [address] [place] [phone] Advice Allergies Active Allergy Reactions Criticality Noted Date [...] as of this encounter (statuses as of 08/19/2024) Medications melatonin 1 MG Tablet Take 3 [...] as of this encounter (statuses as of 08/19/2024) Active Problems Problem Noted Date Diagnosed Date [...] as of this encounter (statuses as of 08/19/2024) Resolved Problems Problem Noted Date Diagnosed Date [...] as of this encounter (statuses as of 08/19/2024) Immunizations Name Administration Dates Next Due Hepatitis [...] do you feel lonely or isolated from ose around you? Never 08/09/2024 Financial Resource [...] encounter Miscellaneous Notes * Telephone Encounter - Ludy Bob MD - 08/18/2024 3:52 PM EST Dealt with this this morning in a patient email * Telephone Encounter - Digna Peters LPN - 08/18/2024 3:27 PM EST Please advise * Telephone Encounter - Ny Kothari OSA - 08/17/2024 2:58 PM EST Pt called in wanting to know if PCP can prescribe clarinex instead of taking the over the counter because it is not working for her anymore. Please call and advise. documented in this encounter Plan of Treatment Upcoming Encounters Date Type Department Care Team (Late st Contact Info) Description 09/07/2024 2:00 PM EDT Office Visit Rheumatology [address] [place] [phone] Buddy Yañez [facility] [address] [facility] [place] [address] 10/09/2024 11:00 AM EDT Office Visit Family Medicine [address] [place] [phone] Ludy Bob MD [address] [place] [address] [place] [phone] 05/26/2025 9:00 AM EST Office Visit Family Medicine [address] [phone] Angela Raza MD [address] [place] [address] [place] [address] Health Maintenance Due Date Last Done Comments [...] Power of Attor wesley? No Care Teams Beer Still Runner Compounder Relationship Specialty Start Date End Date Ludy Bob MD [address] [place] [address] [place] [phone] PCP - General Family Medicine 08/10/24 documented as of this encounter
--- OUTSIDE RECORDS SUMMARY | 2024-08-22 15:59 | External Medical Summary | Summary of Care ---
Author Name Unknown Organization [facility] Address [address] [place] [address] Phone [phone] Care Team Providers Care Aqua Ammonia Operator Name Role Phone Ludy Bob MD Primary Care Pr ovider Reason for Visit * Reason Onset Date Comments Fax 08/18/2024 Encounter Details Date Type Department Care Team ([facility] st Contact Info) Description 08/18/2024 Telephone Family Medicine [address] [phone] Ludy Bob MD [address] [place] [address] [place] [phone] Fax Allergies Active Allergy Reactions Criticality Noted Date [...] Encounter - Angelina Carter OSA - 08/20/2024 3:18 PM EST Orders faxed per patient request. * Telephone Encounter - Angelina Carter OSA - 08/20/2024 3:06 PM EST I left message on for patient to call me (RE: previous request - does she want the orders faxed to have the lab/stress test at ? I was not sure exactly what she was asking for because the testing has not been done yet). * Telephone Encounter - Karrie Capellan OSA - 08/19/2024 1:57 PM EST Verna checking in on the fax she asked to be sent * Telephone Encounter - Talita Andrews OSA - 08/18/2024 2:00 PM EST Caller requesting the following information to be faxed: Name/Company of caller: Verna Mckeon Information requested to be faxed: labs from 08/07/24 & stress test Fax number: [phone] Attention to Name/Company: [facility] Any additional information?: N/A documented in this encounter Plan of Treatment Upcoming Encounters Date Type Department Care Team (Late st Contact Info) Description 08/21/2024 10:20 AM EST Telemedicine Family [address] [place] [phone] Ludy Bob MD [address] [place] [address] [place] [phone] 09/07/2024 2:00 PM EDT Office Visit Rheumatology [address] [place] [phone] Buddy Yañez MD [address] [facility] [place] [address] 10/09/2024 11:00 AM EDT Office Visit Family Medicine [address] [phone] Ludy Bob MD [address] [place] [address] [place] [phone] 05/26/2025 9:00 AM EST Office Visit Family Medicine [address] [place] [phone] Angela Raza MD [address] [place] [address] [place] [address] Health Maintenance Due Date Last Done Comments [...] 07/02/2022, 1209/2017, 11/03/2012, Additional history exists GFR 08/13/2025 08/13/2024, [...] Power of Attor wesley? No Care Teams Aqua Ammonia Operator Relationship Specialty Start Date End Date [facility] [address] [place] [address] [place] [phone] PCP - General Family Medicine 08/10/24 documented as of this encounter
--- OUTSIDE RECORDS SUMMARY | 2024-08-22 15:59 | External Medical Summary | Summary of Care ---
Author Name Unknown Organization [facility] Address [address] [place] [address] Phone [phone] Care Team Providers Care Paleontology Teacher Name Role Phone Ludy Bob MD Primary Care Pr ovider Reason for Visit * Reason Onset Date Comments Appointment 08/17/2024 MRI T SPINE AND EXERCISE STRESS Encounter Details Date Type Department Care Team (Late st Contact Info) Description 08/17/[address] [phone] Ludy Bob MD [address] [place] [phone] Appointment (MRI T SPINE AND EXERCISE [...] Tablet by mouth in the morning. Active Ante UpTouch Ultra In Vitro Strip (Glucose Blood)Indication s:Prediabetes,Hy [...] Miscellaneous Notes * Telephone Encounter - Jacob Ramirez, HUGO - 08/20/2024 2:50 PM EST STRESS ECHO- NO AUTH NEEDED. I faxed order and auth, demo's to [facility] [phone]. They will call pt w/ an appt. MRI T SPINE- * Telephone Encounter - Jacob Ramirez OSA - 08/17/2024 1:44 PM EST Video appt today 08/17/24 MRI T SP- pt wants done at [facility]. I sent email to get auth. STRESS ECHO- pt wants this done at [facility]. I sent email to obtain auth. documented in this encounter Plan of Treatment Upcoming Encounters Date Type Department Care Team (Late st Contact Info) Description 08/21/2024 10:20 AM EST Telemedicine Family [address] [place] [phone] Ludy Bob MD [address] [place] [address] [place] [phone] 09/07/2024 2:00 PM EDT Office Visit Rheumatology [address] [place] [phone] Buddy Yañez MD [address] [place] [address], [place] [address] 10/09/2024 11:00 AM EDT Office Visit Family [address] [place] [phone] Ludy Bob MD [address] [place] [address] [place] [phone] 05/26/2025 9:00 AM EST Office Visit Family Medicine [address] [place] [phone] Angela Raza MD [address] [place] [address] [place] [address] Health Maintenance Due Date Last Done Comments [...] Power of Attor wesley? No Care Teams Paleontology Teacher Relationship Specialty Start Date End Date Ludy Bob MD [address] [place] [address] [place] [phone] PCP - General Family Medicine 08/10/24 documented as of this encounter
--- OUTSIDE RECORDS SUMMARY | 2024-08-22 15:59 | External Medical Summary | Summary of Care ---
Author Name Unknown Organization [facility] Address [address] [place] [address] Phone [phone] Care Team Providers Care Event Specialist Food Demonstrator Name Role Phone Ludy Bob MD Primary Care Pr ovider Reason for Referral * Precert (Within 10 days (routine)) - Authorized Specialty Diagnoses / Procedures Referred By Contac t Referred To Contact Radiology Diagnoses Thoracic degenerative disc disease Procedures MRI T SPINE W WO CONTRAST Ludy Bob MD [address] [place] [address] [place] [phone] Phone: tel: fax: Referral ID Status Reason Start Date Expiration Date V isits Requested Visits Authorized [id number] Authorized 08/21/2024 999 999 * Precert (Diagnostic Medical) (Within 10 days (routine)) - Authorized Specialty Diagnoses / Procedures Referred By Contac t Referred To Contact Cardiac Studies Diagnoses Thoracic degenerative disc disease Procedures ECHO, STRESS (EXERCISE) W/ PHYSICIAN Ludy Bob MD [address] [place] [address] [place] [phone] Phone: tel: fax: Referral ID Status Reason Start Date Expiration Date V isits Requested Visits Authorized [id number] Authorized Precert 08/14/2024 999 999 Reason for Visit * Reason Comments Follow Up Encounter Details Date Type Department Care Team (Latest Contact Info) Description 08/14/2024 4:00 PM EST Telemedicine Family Medicine [address] [place] [phone] Ludy Bob MD [address] [place] [address] [place] [phone] Hospital discharge follow-up*; Hypokalemia; Atypical chest pain; Functional diarrhea; Thoracic degenerative disc disease; Bulging of cervical intervertebral disc; Benign intracranial hypertension syndrome; HLA B27 positive; BMI 45.0-49.9, adult (HCC); Anxiety about health Allergies Active Allergy Reactions Criticality Noted Date [...] as of this encounter (statuses as of 08/14/2024) Medications melatonin 1 MG Tablet Take 3 [...] 1 Tablet before bedtime. 08/14/19 25 Active acetaZOLAMIDE ER 500 MG Oral Capsule Extended Release 12 Hour (Diamox Sequels) Take 1 Capsule by mouth in the morning and 1 Capsule before bedtime. 08/05/19 25 025 Discontinued busPIRone HCl 5 MG Oral Tablet (Buspar) Take 0.5 Tablets by mouth in the morning and 0.5 Tablets before bedtime. 90 Tablet 1 08/07/19 25 025 Discontinued documented as of this encounter (statuses as of 08/14/2024) Active Problems Problem Noted Date Diagnosed Date [...] as of this encounter (statuses as of 08/14/2024) Resolved Problems Problem Noted Date Diagnosed Date [...] as of this encounter (statuses as of 08/14/2024) Immunizations Name Administration Dates Next Due Hepatitis [...] * Geovanni Segovia, Ludy Vargas MD - 08/14/2024 4:05 PM EST Images from the original note were not included. History of Present Illness Verna Mckeon is a 38 year old female that presents for Follow Up History of Present Illness Verna, a patient with a history of neurological issues, presents with ongoing chest pain, diarrhea, and other symptoms. She recently saw a neurologist who lowered her dose of Diamox due to its impact on her potassium and CO2 levels. She also discontinued Buspar due to disturbing dreams. She continues to take Lexapro. Verna is also concerned about potential cardiac issues and has recently visited the ER due to chest pain. Neuro ordered EEG and started autoimmune workup. Seeing Rheum in 1 week. NeuroSurg recommended PT, repeat MRI, and pain management prior to any intervention. Is currently in PT. Had a CT of her chest at [facility] about a week ago, we do not have those records yet. Was in the Ed last night again for chest pain, recommended stress test. Had a d- dimer that was elevated and scan was neg for blood clots. She expresses a concern about her cardiac health and feels that a stress echo is warranted at this time for the recurrent chest pain and her family history. Doeshave risk factors including BMI. Physical Exam There were no vitals taken [...] normal. Behavior: Behavior normal. Assessment and Plan Assessment & Plan Suspected Autoimmune Condition Elevated ESR and CRP levels prompted neurology to initiate an autoimmune workup, with results pending. Continue with the rheumatology appointment on 08/21/[address] Foley. Chest Pain A recent ER visit for chest pain showed a negative CT for blood clots but a high D-dimer, raising concerns about cardiac involvement. Order a stress echo at [facility] to rule out cardiac etiology. Anxiety Buspar was stopped due to nightmares, but Lexapro continues. Concerns about potential seizures wereexpressed. Continue Lexapro and provide reassurance about the nature of seizures. Idiopathic Intracranial Hypertension Diamox dosage was reduced due to low potassium and CO2 levels. Neurology has ordered an EEG for 08/26/2024 to rule out seizure activity. Continue Diamox 250mg BID and recheck the metabolic panel in 1 week to monitor potassium and CO2 levels. Thoracic Spine Pain There are complaints of pain and popping/crackling between the shoulder blades. Neurosurgery recommended an MRI after physical therapy and pain management. Attempt to order an MRI T-spine at [facility] and continue with physical therapy for the neck. Gastrointestinal Disturbance Intermittent diarrhea has been reported since taking clindamycin, with no blood in stool or foul smell. Monitor symptoms and advise reporting any changes such as blood in stool or foul smell. Follow-up in 6 weeks or sooner if any changes occur. Hospital discharge follow-up Hypokalemia Likely related to diamox, will recheck levels in 1 week after decreased dosage. Atypical chest pain Functional diarrhea Thoracic degenerative disc disease - ECHO, STRESS (EXERCISE) W/ PHYSICIAN; Future - BASIC METABOLIC PANEL; Future - MRI T SPINE W WO CONTRAST; Future Bulging of cervical intervertebral disc Benign intracranial hypertension syndrome HLA B27 positive BMI 45.0-49.9, adult (HCC) Anxiety about health Wrap-Up Follow Up: Return in about 6 weeks (around 09/25/2024) for as scheduled. | For: as scheduled | Check-out note: Please request CT head done recently, and recent blood work Time: I spent a total of 20-29 [...] during the encounter consented to its use. Telemedicine: Patient location: HOME. I was in a hospital or clinic location. After connecting through televideo,patient was verified with two unique identifiers. Patient (or authorized legal appliance service representative) was then informed that this [...] 08/21/2024 11:00 AM EST Office Visit Rheumatology [address] [place] [phone] Buddy Yañez MD [address] [place] [address] [place], [place] [address] 10/09/2024 11:00 AM EDT Office Visit [address] [phone] Ludy Bob MD [address] [place] [address] [place] [phone] 05/26/2025 9:00 AM EST Office Visit [address] [place] [phone] Angela Raza MD [address] [place] [address] [place] [address] Scheduled Orders Name Type Priority Associated Diagnoses Orde r Schedule ECHO, STRESS (EXERCISE) W/ PHYSICIAN Echocardiology Routine Thoracic degenerative disc disease Expected: 08/14/2024, Expires: 09/11/2025 BASIC METABOLIC PANEL Lab Routine Thoracic degenerative disc disease Expected: 08/21/2024 (Approximate), Expires: 08/14/2025 MRI T SPINE W WO CONTRAST Medical Imaging Routine Thoracic degenerative disc disease Expected: 08/21/2024, Expires: 09/11/2025 Health Maintenance Due Date Last Done Comments [...] as of this encounter Visit Diagnoses Diagnosis Hospital discharge follow-up- Primary Other follow-up examination Hypokalemia Hypopotassemia Atypical chest pain Other chest pain Functional diarrhea Thoracic degenerative disc disease Degeneration of thoracic or thoracolumbar intervertebral disc Bulging of cervical intervertebral disc Benign intracranial hypertension syndrome Benign intracranial hypertension 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 No Care Teams Event Specialist Food Demonstrator Relationship Specialty Start Date End Date Ludy Bob MD [address] [place] [address] [place] [phone] PCP - General Family Medicine 08/10/24 documented as of this encounter"
--- OUTSIDE RECORDS SUMMARY | 2024-08-22 15:59 | External Medical Summary | Summary of Care ---
Author Name Unknown Organization [facility] Address [address] [place] [address] Phone [phone] Care Team Providers Care Network Infrastructure Architect Name Role Phone Ludy Bob MD Primary Care Pr ovider Encounter Details Date Type Department Care Team (Late st Contact Info) Description 08/18/2024 Orders Only Family Medicine [address] [phone] Ludy Bob MD [address] [place], [place] [address] [phone] Allergies Active Allergy Reactions Criticality Noted Date [...] as of this encounter (statuses as of 08/18/2024) Medications melatonin 1 MG Tablet Take 3 [...] as of this encounter (statuses as of 08/18/2024) Active Problems Problem Noted Date Diagnosed Date [...] as of this encounter (statuses as of 08/18/2024) Resolved Problems Problem Noted Date Diagnosed Date [...] as of this encounter (statuses as of 08/18/2024) Immunizations Name Administration Dates Next Due Hepatitis [...] of Assessment Author No 02/15/2021 1:34 AM RODGERT Kaur Marx RN * Do you have serious difficulty [...] 08/21/2024 11:00 AM EST Office Visit Rheumatology [address] [place] [phone] Buddy Yañez MD [facility] [facility] [address] 10/09/2024 11:00 AM EDT Office Visit [address] [phone] Ludy Bob MD [address] [place] [address] [place] [phone] 05/26/2025 9:00 AM EST Office Visit [address] [place] [phone] Angela Raza MD [address] [place] [address] [place] [address] Health Maintenance Due Date Last Done Comments [...] Procedure Name Priority Date/Time Associated Diagnosis Comments CHEMISTRY-OUTSIDE Routine 08/13/2024 CTA CHEST NON-CORONARY W CONTRAST Routine 08/13/2024 documented in this encounter Results * CHEMISTRY-OUTSIDE (08/13/2024) Not all results display below - see scan for full detail OUTSIDE LAB (SEE SCANNED REPORT) Comment:SCAN INCLUDES: CBCD, D-DIMER, UA, CMP, MG, TROP, URINE HCG CREATININE 0.72 0.55 - 1.02 MG/DL OUTSIDE LAB (SEE SCANNED REPORT) EGFR >90 >=60 ML/MIN OUTSIDE LAB (SEE SCANNED REPORT) POTASSIUM 3.6 3.5 - 5.1 MMOL/L OUTSIDE LAB (SEE SCANNED REPORT) GLUCOSE 95 70 - 110 MG/DL OUTSIDE LAB (SEE SCANNED REPORT) HOURS FASTING OUTSID E LAB (SEE SCANNED REPORT) TRIGLYCERIDES-OU TSIDE LAB OUTSIDE LAB (SEE SCANNED REPORT) CHOLESTEROL-OUTS ALESSANDRO LAB OUTSIDE LAB (SEE SCANNED REPORT) HDL-OUTSIDE LAB OUTS ALESSANDRO LAB (SEE SCANNED REPORT) CHOL/HDL RATIO-OUTSIDE LAB OUTSIDE LAB (SEE SCANNED REPORT) LDL (CALCULATED)-OUT SIDE LAB OUTSIDE LAB (SEE SCANNED REPORT) LDL (DIRECT MEASURE)-OUTSIDE LAB OUTSIDE LAB (SEE SCANNED REPORT) HEMOGLOBIN, J7Z-[id number] LAB OUTSIDE LAB (SEE SCANNED REPORT) PHOSPHORUS-OUTSI DE LAB OUTSIDE LAB (SEE SCANNED REPORT) PTH-OUTSIDE LAB OUTS ALESSANDRO LAB (SEE SCANNED REPORT) MICROALBUMIN RATIO-OUTSIDE LAB OUTSIDE LAB (SEE SCANNED REPORT) PROTEIN, UA-OUTSIDE LAB NEGATIVE NEGATIVE OUTSIDE LAB (SEE SCANNED REPORT) HGB 12.8 12.0 - 16.0 GM/DL OUTSIDE LAB (SEE SCANNED REPORT) 08/13/2024 us Magdalena Glover PA-C LABORATORY Final Re sult OUTSIDE LAB (SEE SCANNED REPORT) * CTA CHEST NON-CORONARY W CONTRAST (08/13/2024) Anatomical Region Laterality Modality Chest, Cardio, Body Other 08/13/2024 Magdalena Glover PA-C RAD CT Final Re sult documented in this encounter Advance Directives * [...] Power of Attor wesley? No Care Teams Network Infrastructure Architect Relationship Specialty Start Date End Date Ludy Bob MD [address] [place] [address] [place] [phone] PCP - General Family Medicine 08/10/24 documented as of this encounter
--- OUTSIDE RECORDS SUMMARY | 2024-08-22 15:59 | External Medical Summary | Summary of Care ---
Author Name Unknown Organization [facility] Address [address] [place] [address] Phone [phone] Care Team Providers Care Painter Rough Name Role Phone Ludy Bob MD Primary Care Pr ovider Reason for Visit * Reason Onset Date Comments Imaging Records Request 08/14/2024 Encounter Details Date Type Department Care Team ([facility] st Contact Info) Description 08/14/[address] [phone] Ludy Bob MD [address] [place] [address] [place] [phone] Imaging Records Request Allergies Active Allergy Reactions Criticality Noted Date [...] 90 Capsule 1 08/03/19 25 Active acetaZOLAMIDE ER 500 MG Oral Capsule Extended Release 12 Hour (Diamox Sequels) Take 1 Capsule by mouth in the morning and 1 Capsule before bedtime. 08/05/19 25 025 Discontinued documented as of this [...] Telephone Encounter - Ludy Bob MD - 08/14/2024 4:19 PM EST Please request recent CT chest and recent blood work from [facility] Discussed with patient at video visit today documented in this encounter Plan of Treatment Upcoming Encounters Date Type Department Care Team (Late st Contact Info) Description 08/21/2024 11:00 AM EST Office Visit Rheumatology [address] [place] [phone] Buddy Yañez MD [facility], [place] [address] 10/09/2024 11:00 AM EDT Office Visit Family Medicine [address] [place] [phone] Ludy Bob MD [address] [place] [address] [place] [phone] 05/26/2025 9:00 AM EST Office Visit Family Medicine [address] [place] [phone] Angela Raza MD [address] [place] [address] [place] [phone] Health Maintenance Due Date Last Done Comments [...] patient have Health Care Power of Attor wesely? No Care Teams Painter Rough Relationship Specialty Start Date End Date Ludy Bob MD [address] [place] [address] [place] [phone] PCP - General Family Medicine 08/10/24 documented as of this encounter
--- OUTSIDE RECORDS SUMMARY | 2024-08-22 15:59 | External Medical Summary | Summary of Care ---
Author Name Unknown Organization [facility] Address [address] [place] [address] Phone [phone] Care Team Providers Care Assistant Front End Manager Name Role Phone Ludy Bob MD Primary Care Pr ovider Reason for Visit * Reason Onset Date Comments Appointment 08/17/2024 MRI T SPINE AND EXERCISE STRESS Encounter Details Date Type Department Care Team (Late st Contact Info) Description 08/17/[address] [phone] Ludy Bob MD [address] [place] [phone] Appointment (MRI T SPINE AND EXERCISE [...] MRI T SP- pt wants done at [facility]. I sent email to get auth. STRESS ECHO- pt wants this done at [facility] hosp. I sent email to obtain auth. documented in this encounter Plan of Treatment Upcoming Encounters Date Type Department Care Team (Late st Contact Info) Description 08/21/2024 11:00 AM EST Office Visit Rheumatology [address] [place] [phone] Buddy Yañez MD [address] [facility], [place] [address] 10/09/2024 11:00 AM EDT Office Visit Family Medicine [address] [place] [phone] Ludy Bob MD [address] [place] [address] [place] [phone] 05/26/2025 9:00 AM EST Office Visit Family Medicine [address] [place] [phone] Angela Raza MD [address] [place] [address] [place] [phone] Health Maintenance Due Date Last Done Comments [...] Power of Attor wesley? No Care Teams Assistant Front End Manager Relationship Specialty Start Date End Date Ludy Bob MD [address] [place] [address] [place] [phone] PCP - General Family Medicine 08/10/24 documented as of this encounter
--- OUTSIDE RECORDS SUMMARY | 2024-08-22 15:59 | External Medical Summary | Summary of Care ---
Author Name Unknown Organization [facility] Address [address] [place] [address] Phone [phone] Care Team Providers Care Autism Specialist Name Role Phone Ludy Bob MD Primary Care Pr ovider Reason for Visit * Reason Onset Date Comments Imaging Records Request 08/14/2024 Encounter Details Date Type Department Care Team ([facility] st Contact Info) Description 08/14/[address] [phone] Ludy Bob MD [address] [place] [address] [place] [phone] Imaging Records Request Allergies Active Allergy [...] Active Fluticasone Propionate 50 MCG/ACT Nasal Suspension (Flonase)Indica tions:Sinus congestion Administer 2 Sprays into each nostril in the morning. 16 g 5 07/16/19 25 Active Escitalopram Oxalate 10 MG Oral Tablet (Lexapro)Indica tions:Anxiety,S omatoform disorder TAKE 1 TABLET BY MOUTH EVERY DAY IN THE MORNING 90 Tablet 3 07/17/19 25 Active Vitamin D 50 MCG (2000 UT) Oral Capsule Take 2,000 Units by mouth in the morning. 90 Capsule 1 08/03/19 25 Active Ozempic (0.25 or 0.5 MG/DOSE) 2 MG/3ML Solution Pen-injector (Semaglutide(0. 25 or 0.5MG/DOS))Becki cations:Morbid obesity due to excess calories (HCC),Abnormal weight gain Inject 0.5 mg under the skin once a week. 9 mL 4 8:25 AM EST 05/20/20 24 025 Discontinued(R efill) acetaZOLAMIDE ER 500 MG Oral Capsule Extended [...] encounter Miscellaneous Notes * Telephone Encounter - Radha Mix CMA - 08/17/2024 1:21 PM EST Faxed request to [facility] [place] for records * Telephone Encounter - Ludy Bob MD - 08/14/2024 4:19 PM EST Please request recent CT chest and recent blood work from [facility] Discussed with patient at video visit today documented in this encounter Plan of Treatment Upcoming Encounters Date Type Department Care Team (Late st Contact Info) Description 08/21/2024 11:00 AM EST Office Visit Rheumatology [address] [place] [phone] Buddy Yañez MD [address] [place] [address] [place] [address] 10/09/2024 11:00 AM EDT Office Visit Family Medicine [address] [phone] Ludy Bob MD [address] [place] [address] [place] [phone] 05/26/2025 9:00 AM EST Office Visit Family Medicine [address] [phone] Angela Raza MD [address] [place] [address] [place] [phone] Health Maintenance Due Date Last Done Comments [...] Power of Attor wesley? No Care Teams Autism Specialist Relationship Specialty Start Date End Date Ludy Bob MD [address] [place] [address] [place] [phone] PCP - General Family Medicine 08/10/24 documented as of this encounter
--- OUTSIDE RECORDS SUMMARY | 2024-08-22 15:59 | External Medical Summary | Summary of Care ---
Author Name Unknown Organization [facility] Address [address] [place] [address] Phone [phone] Care Team Providers Care Naval Marine Engineer Name Role Phone Ludy Bob MD Primary Care Pr ovider Reason for Visit * Reason Onset Date Comments Fax 08/18/2024 Encounter Details Date Type Department Care Team ([facility] st Contact Info) Description 08/18/2024 Telephone Family Medicine [address] [phone] Ludy Bob MD [address] [place] [address] [place] [phone] Fax Allergies Active Allergy Reactions Criticality [...] from 08/07/24 & stress test Fax number: [phone] Attention to Name/Company: [facility] Any additional information?: N/A documented in this encounter Plan of Treatment Upcoming Encounters Date Type Department Care Team (Late st Contact Info) Description 08/21/2024 10:20 AM EST Telemedicine Family [address] [place] [phone] Ludy Bob MD [address] [place] [address] [place] [phone] 09/07/2024 2:00 PM EDT Office Visit Rheumatology [address] [place] [phone] Buddy Yañez MD [facility] [address] 10/09/2024 11:00 AM EDT Office Visit Family Medicine [address] [phone] Ludy Bob MD [address] [place] [address] [place] [phone] 05/26/2025 9:00 AM EST Office Visit Family Medicine [address] [place] [phone] Angela Raza MD [address] [place] [address] [place] [phone] Health Maintenance Due Date Last Done Comments [...] Power of Attor wesley? No Care Teams Naval Marine Engineer Relationship Specialty Start Date End Date [facility] [address] [place] [address] [place] [phone] PCP - General Family Medicine 08/10/24 documented as of this encounter
--- NOTE | 2024-08-22 16:16 | Emergency Department Note ---
Impression & Plan Suicidal ideation, Chest pain, Dizziness, Anxiety, Depression, Abdominal pain, Sinus pressure ED Provider Note CHIEF COMPLAINT: Chest pain, dizziness, eyesight and mental health HISTORY OF PRESENTING ILLNESS: The patient is a 38-year-old female with a PMH POTS, DVT during , anxiety and depression, and palpitations who presents to the emergency department stating that she has been having dizziness, pressure in her head, chest pain, abdominal pain that is now worsening today. She confirms that she has had many workups done in the past couple of months and was just recently discharged from the hospital for the same symptoms with no significant findings. States she has been having increased anxiety. She is tearful. She states that she just cannot control her racing thoughts, this is if she is a burden to her family, and confirms suicidal thoughts without a plan. Denies fevers, shortness of breath, changes in vision, slurred speech, nausea and vomiting, numbness or tingling in her legs. REVIEW OF SYSTEMS: See HPI for pertinent positives and pertinent negatives. ALLERGIES: Amoxicillin, clavulanic acid, iodinated contrast media, doxycycline, egg, fish, metronidazole, sulfamethoxazole, trimethoprim, coffee, penicillin MEDICATIONS: See below PAST MEDICAL HISTORY: See below PHYSICAL EXAM: VITALS: Vitals are noted on the nurse's note and reviewed by myself. Vital signs stable. GENERAL: 38-year-old female, tearful, lying in bed anxiously with her at bedside, in no acute distress, nondiaphoretic, well-developed well-nourished. SKIN: Capillary refill less than 2 seconds. HEENT: Normocephalic. PERRLA. EOMI. Nares patent. Mucous membranes moist. Neck is supple without nuchal rigidity. TM visualized bilaterally without abnormality. Throat without tonsillar hypertrophy, tonsillar exudates, uvula is midline. HEART: Regular rate and rhythm without murmurs gallops or rubs. LUNGS: Clear to auscultation bilaterally without wheezes, rales or rhonchi. No retractions or accessory muscle use. ABDOMEN: Positive bowel sounds x 4. Patient confirms some mild diffuse tenderness that is not any worse with palpation. The abdomen is soft, without masses or organomegaly. No guarding or rebound tenderness. MUSCULOSKELETAL: No gross musculoskeletal defects. No pedal edema. No calf tenderness. NEURO: Patient was alert and oriented to person place and time. No focal neurological deficits. DIFFERENTIAL DIAGNOSIS: acute coronary syndrome, pulmonary embolism, pneumothorax, pericarditis, myocarditis, endocarditis, anxiety, musculoskeletal pain, GERD, costochondritis, pneumonia, anxiety, depression, bipolar, among others. ED COURSE AND MEDICAL DECISION MAKING: HISTORY FROM INDEPENDENT HISTORIAN: The patient herself and her . MEDICATIONS GIVEN: Denies any for pain and symptom management in the emergency department. MONITOR: Continuous farm helper: Order was placed for continuous farm helper. Patient was placed on the farm helper and continuous pulse ox. Patient was noted to be in normal sinus rhythm at an initial rate of 93 bpm per my interpretation. EKG: EKG was interpreted by myself as normal sinus rhythm with sinus arrhythmia. No obvious sign of other arrhythmias. No ST or T wave abnormalities seen. When compared to previous EKG from 08/05/2024 no significant change seen. INTERPRETATION OF LABS: I interpreted the labs with full lab results as below in the lab section of this note. Pertinent lab results discussed in the MDM section below. INTERPRETATION OF IMAGING: Imaging studies were interpreted by myself and read by radiology as per the imaging section of this note. Chest x-ray - No acute cardiopulmonary findings. No consolidation, pneumothorax, effusion. CONSULTATIONS: Case management - I consulted with the case management team in the emergency department regarding a psych evaluation for my patient. She was informed of the patient being tearful on exam and telling me that she feels as if she is not herself and her thoughts are racing. She confirms that she would go and evaluate the patient to see if she needs a psych admission. The patient admits to the disability case manager that she is suicidal without a plan. She informed me of their conversation and that she would be admitting her to psych and work on getting her room upstairs when she is medically cleared. MDM SUMMARY: The patient is a 38-year-old female with a PMH POTS, DVT during , anxiety and depression, and palpitations who presents to the emergency department stating that she has been having dizziness, pressure in her head, chest pain, abdominal pain that is now worsening today. She confirms that she has had many workups done in the past couple of months and was just recently discharged from the hospital for the same symptoms with no significant findings. States she has been having increased anxiety. She is tearful. She states that she just cannot control her racing thoughts, this is if she is a burden to her family, and confirms suicidal thoughts without a plan. Denies fevers, shortness of breath, changes in vision, slurred speech, nausea and vomiting, numbness or tingling in her legs. On exam she is lying anxiously in bed and is tearful. Her is at bedside comforting her. HEENT exam is unremarkable. Chest auscultation reveals RRR without murmurs appreciated. Lungs are clear to auscultation bilaterally. Lungs are clear to auscultation bilaterally without wheezing, rhonchi, or rales. The abdomen is soft without masses. Patient confirms diffuse tenderness to her abdomen that is not any worse with palpation. No guarding or rebound tenderness. No pedal edema or calf tenderness. Patient was alert and oriented. No focal neurological deficits. I had a discussion with the patient regarding which symptom was most concerning to her today upon her arrival. She confirms that she knows that she has had a medical symptoms that are ongoing and she has had many workups completed showing no significant findings. She states that her biggest worry today is her mental health. She states, " it was my daughter's 10th birthday yesterday and I felt as if I could not even celebrate with her." She then goes on to say, "I feel it is not safe for me to go home and I would like to be evaluated by psych." I did discuss with her that I would reach out to case management regarding a psych evaluation and get her the help that she needs. We also discussed that here in the emergency department she needs to be medically cleared and I asked her again which symptom is most concerning to her today. She confirms her chest pain and tightness. A chest pain workup was completed. She states that last week she had a CTA of her chest completed at [place] which was negative. She confirms multiple head CT and a brain MRI scans to rule out cause for her headaches, dizziness, and head pressure. Confirms she has been following up with primary care regarding her symptom management but feels as if things have just gotten so much worse that she is not able to control them at home herself. She also later confirms that she has just finished a course of clindamycin and has been having watery diarrhea the last 3 to 4 days. A stool bio fire, CBC, CMP, lipase, troponin, D-dimer, , urine drug screen, urinalysis, chest x-ray, EKG were ordered. Patient denies the need for pain and symptom management in the emergency department. No leukocytosis WBC normal 10.16. RBC normal 4.3. D-dimer normal 420. No electrolyte abnormalities. BUN 10. Creatinine 0.57. Troponin normal 4.0. Lipase normal 17. negative. Urinalysis shows no sign of infection or hematuria. Patient was not able to provide a stool sample for the remainder of her emergency department stay. C. difficile is unlikely at this time and I did inform case management of her not being able to provide a sample and . Urine toxicology screen was negative. Chest x-ray shows no acute cardiopulmonary findings. EKG shows a rate of 93 interpreted as normal sinus rhythm with sinus arrhythmia. No other obvious sign of arrhythmias, ST, or T wave abnormalities. Patient was informed of all these findings and was able to ask questions. All results were thoroughly reviewed with the patient and her . Case management evaluated the patient which can be seen in detail above. Patient confirms that she is suicidal without a plan and feels that if she is a burden to her family. Case management agrees that she should require a psych evaluation and is working on getting her bed upstairs when she is medically cleared. Patient was moved to room A8. I reevaluated the patient. Vitals are stable and she is afebrile. Again all results were discussed with the patient and she was informed that she will be going upstairs once a bed is available in the psych unit. She confirms that she wants a psych evaluation and wants to get help. She agrees to the treatment plan and was able to ask questions. The patient was admitted in stable condition. DIAGNOSIS: Suicidal ideation, chest pain, dizziness, anxiety, depression, abdominal pain, sinus pressure The chart was completed utilizing [employer] Speech voice recognition software. Grammatical errors, random word insertions, pronoun errors, and incomplete sentences are an occasional consequence of this system due to software limitations, ambient noise, and hardware issues. Any formal questions or concerns about the content, text, or information contained within the body of this dictation should be directly addressed to the provider for clarification. Past Med/Surg History Problem List (Updated 08/23/24 @ 15:36 by Benjamin Shannon MD) Illness anxiety disorder Major depressive disorder, recurrent episode with anxious distress Sinus pressure (Acute) Abdominal pain (Acute) Depression (Acute) Anxiety (Acute) Dizziness (Acute) Chest pain (Acute) Suicidal ideation (Acute) Cervical radiculopathy Dizziness (Acute) Headache (Acute) Vivid dream Somatic symptom disorder Chest pain (Acute) Pseudotumor cerebri (Acute) Dermatomyositis Small fiber neuropathy Headache Hypokalemia Persistent postural-perceptual dizziness Idiopathic intracranial hypertension Sinus tachycardia Palpitations Chest pain (Acute) POTS (postural orthostatic tachycardia syndrome) (Acute) Epigastric abdominal pain (Acute) Weakness (Acute) Change in mental status POTS (postural orthostatic tachycardia syndrome) (Acute) DVT (deep vein thrombosis) in Seizure-like activity Paresthesia Severe uncontrolled hypertension Vision changes High cholesterol GERD (gastroesophageal reflux disease) Anxiety and depression History of bulimia Insomnia Vitamin D deficiency Seasonal allergies Vitamin B12 deficiency Migraine Ankylosing spondylitis Degenerative disc disease Exercise-induced asthma Morbid obesity Thoracic disc disease Dysphagia Prediabetes Eustachian tube dysfunction Near syncope Inappropriate sinus tachycardia Abnormal EEG Hypersomnia Dietary counseling and surveillance Metabolic syndrome Pericarditis Medical History Abnormal EEG Ankylosing spondylitis Anxiety and depression Change in vision Chest pain Chest pain COVID-19 Degenerative disc disease Dizziness DVT (deep venous thrombosis) Eustachian tube dysfunction Fatigue GERD (gastroesophageal reflux disease) Headache Heart palpitations High cholesterol History of bradycardia History of bulimia History of pre-eclampsia Insomnia Iron deficiency anemia Migraine Morbid obesity with BMI of 40.0-44.9, adult Seasonal allergies Thoracic disc disease Vitamin B12 deficiency Vitamin D deficiency Surgical History History of cardiac cath 06/2015 @ [facility] [place]--d/t chest pain, normal no stents History of cholecystectomy History of esophagogastroduodenoscopy (EGD) History of wisdom tooth extraction Family History (System 10/17/22 @ 08:26 by Sophia Benavidez) Father Hypertension Mother Diabetes Grandfather (Maternal) Diabetes Coronary heart disease Myocardial infarction Congestive heart failure Colorectal cancer Grandfather (Paternal) Diabetes Coronary heart disease Myocardial infarction, Onset Age: 50 Grandmother (Paternal) Pulmonary emphysema Sick sinus syndrome Diabetes Pacemaker Grandmother (Maternal) Family history of diabetes mellitus Aunt Pulmonary emphysema Family/Other Myocardial infarction, Onset Age: 37 Coronary heart disease Uncle Stroke Other Asthma Lymphoma No family history of adverse response to anesthesia Denies family history of Ovarian cancer Prostate cancer Breast cancer Social History (System 10/17/22 @ 08:26 by Sophia Benavidez) Smoking Status: Never smoker Tobacco Type: Cigarettes Second Hand Exposure: No; Do You Dip or Chew Tobacco: No; Hx Alcohol Use: No Hx Substance Use: No Preferred Language: Yi Communication Ability: Effective Communication Tools: Other Visual Impairment: No Limitations Hearing Ability: Normal [employer] Consultant Required: No Beliefs That Will Affect Care: None marital status: Current Living Situation: Spouse and Family Current Living Situation Comment: Lives with and daughter current occupational status: unemployed How many Children do You have: 1 Feels Safe at Home: Yes Childhood Exposure to Second-Hand Smoke: Yes Diet: regular caffeine: No during the past year weight has: remained stable Dental Care, Regularly: Yes Physical Activity Frequency: 5-6 Times per Week Seatbelt Use: never Sunscreen Use: Yes Gender Identity: Female Assistive Devices: Glasses Allergies Allergies Allergy/AdvReac Type Severity Reaction Status Date / Time amoxicillin Allergy Severe ANAPHYLAXIS Verified 08/13/24 14:38 clavulanic acid Allergy Severe ANAPHYLAXIS Verified 08/13/24 14:38 Iodinated Contrast Media Allergy Severe Hives, Verified 08/13/24 14:38 tongue swelling doxycycline Allergy Intermediate Rash Verified 08/13/24 14:38 fish derived Allergy Intermediate Hives Verified 08/13/24 14:38 metronidazole Allergy Intermediate rash Verified 08/13/24 14:38 sulfamethoxazole Allergy Intermediate tongue Verified 08/13/24 14:38 [From Bactrim] swelling trimethoprim [From Bactrim] Allergy Intermediate tongue Verified 08/13/24 14:38 swelling coffee (Coffea arabica) Allergy Unknown per Verified 08/13/24 14:38 allergy testing Penicillins Allergy Unknown per Verified 08/13/24 14:38 allergy testing Home Meds Home Medications Medication Instructions Recorded Confirmed loratadine 10 mg tablet (Claritin) 10 mg PO HS Congestion 03/21/20 08/22/24 melatonin 5 mg tablet 5 mg PO HS Sleep 10/12/21 08/22/24 escitalopram oxalate 10 mg tablet 5 mg PO PM 08/02/24 08/22/24 magnesium glycinate 200 mg PO HS 08/22/24 08/22/24 acetazolamide 250 mg tablet 250 mg PO BID 08/23/24 08/23/24 buspirone 5 mg tablet 2.5 mg PO BID 08/23/24 08/23/24 Results & Data (ED) Vital Signs Vital Signs - 24 hr 08/22/24 18:03 Pulse Rate 99 H Respiratory Rate 14 Blood Pressure 146/92 H Blood Pressure Mean 110 Pulse Oximetry 98 Oxygen Delivery Method Room Air Laboratory Data 08/22/24 16:17 08/22/24 16:17 Lab Results 08/22/24 08/22/24 08/22/24 Range/Units 16:00 16:06 16:17 WBC 10.16 (4.8-10.8) K/ul RBC 4.32 (4.20-5.40) M/uL Hgb 12.4 (12.0-16.0) g/dl Hct 38.2 (37.0-47.0) % MCV 88.4 (80.0-100.0) fL MCH 28.7 (25.0-34.0) pg MCHC 32.5 (32.0-36.0) g/dL RDW Std Deviation 44.3 (36.4-46.3) fL RDW Coeff of Yash 13.6 (11.5-14.5) % Plt Count 335 (130-400) K/uL MPV 10.0 (9.4-12.4) fL Immature Gran % (Auto) 0.6 % Neut % (Auto) 70.7 % Lymph % (Auto) 23.0 % [place] % (Auto) 3.2 % Eos % (Auto) 2.2 % Baso % (Auto) 0.3 % Neut # (Auto) 7.18 H (1.40-6.50) K/uL Lymph # (Auto) 2.34 (1.20-3.40) K/uL [place] # (Auto) 0.33 (0.11-0.59) K/uL Eos # (Auto) 0.22 (0.00-0.50) K/uL Baso # (Auto) 0.03 (0.00-0.20) K/uL Immature Gran # (Auto) 0.06 (0.01-0.20) K/uL D-Dimer Cancelled Sodium 138 (136-145) mmol/L Potassium 3.8 (3.5-5.1) mmol/L Chloride 102 (98-107) mmol/L Carbon Dioxide 28 (21-32) mmol/L Anion Gap 8 (3-11) BUN 10 (6-23) mg/dl Creatinine 0.57 L (0.6-1.2) mg/dl Est Cr Clr Drug Dosing 168.7 ml/min eGFR 120.71 BUN/Creatinine Ratio 17.5 (10-20) Glucose 121 H (70-99(Fasting)) mg/dl Calcium 9.6 (8.6-10.3) mg/dl Total Bilirubin 0.3 (0.2-1.0) mg/dl AST 17 (13-39) U/L ALT 14 (7-52) U/L Alkaline Phosphatase 111 H (34-104) U/L Troponin I High Sens 4.0 (0-14) pg/ml Total Protein 7.6 (6.0-8.3) gm/dl Albumin 4.1 (3.4-5.0) gm/dl Globulin 3.5 (2.5-4.0) gm/dl Albumin/Globulin Ratio 1.2 (0.9-2) Lipase 17 (11-82) U/L HCG, Qual Negative (Negative) Urine Color Yellow Urine Appearance Clear (Clear) Urine pH 7.5 (4.5-7.5) Ur Specific [place] 1.018 (1.000-1.030) Urine Protein Negative (Negative) Urine Glucose (UA) Negative (Negative) Urine Ketones Negative (Negative) Urine Blood Negative (Negative) Urine Nitrite Negative (Negative) Urine Bilirubin Negative (Negative) Urine Urobilinogen Negative (Negative) Ur Leukocyte Esterase Negative (Negative) Urine Opiates Screen Neg (Neg) Ur Methadone, Qual Neg (Neg) Urine Fentanyl Screen Neg (Neg) Urine Barbiturates Neg (Neg) Ur Phencyclidine (PCP) Neg (Neg) U Amphetamin/Meth Scrn Neg (Neg) MDMA (Ecstasy) Screen Neg (Neg) U Benzodiazepines Scrn Neg (Neg) Ur Cocaine Metabolite Neg (Neg) U Marijuana (THC) Screen Neg (Neg) Ethyl Alcohol mg/dL (<10.0) mg/dl SARS-CoV-2 (PCR) (Negative) Influenza Type A (PCR) (Neg) Influenza Type B (PCR) (Neg) RSV (RT-PCR) (Neg) 08/22/24 08/22/2425 Range/Units 17:00 18:33 18:35 WBC (4.8-10.8) K/ul RBC (4.20-5.40) M/uL Hgb (12.0-16.0) g/dl Hct (37.0-47.0) % MCV (80.0-100.0) fL MCH (25.0-34.0) pg MCHC (32.0-36.0) g/dL RDW Std Deviation (36.4-46.3) fL RDW Coeff of Yash (11.5-14.5) % Plt Count (130-400) K/uL MPV (9.4-12.4) fL Immature Gran % (Auto) % Neut % (Auto) % Lymph % (Auto) % [place] % (Auto) % Eos % (Auto) % Baso % (Auto) % Neut # (Auto) (1.40-6.50) K/uL Lymph # (Auto) (1.20-3.40) K/uL [place] # (Auto) (0.11-0.59) K/uL Eos # (Auto) (0.00-0.50) K/uL Baso # (Auto) (0.00-0.20) K/uL Immature Gran # (Auto) (0.01-0.20) K/uL D-Dimer 420 Sodium (136-145) mmol/L Potassium (3.5-5.1) mmol/L Chloride (98-107) mmol/L Carbon Dioxide (21-32) mmol/L Anion Gap (3-11) BUN (6-23) mg/dl Creatinine (0.6-1.2) mg/dl Est Cr Clr Drug Dosing ml/min eGFR BUN/Creatinine Ratio (10-20) Glucose (70-99(Fasting)) mg/dl Calcium (8.6-10.3) mg/dl Total Bilirubin (0.2-1.0) mg/dl AST (13-39) U/L ALT (7-52) U/L Alkaline Phosphatase (34-104) U/L Troponin I High Sens (0-14) pg/ml Total Protein (6.0-8.3) gm/dl Albumin (3.4-5.0) gm/dl Globulin (2.5-4.0) gm/dl Albumin/Globulin Ratio (0.9-2) Lipase (11-82) U/L HCG, Qual (Negative) Urine Color Urine Appearance (Clear) Urine pH (4.5-7.5) Ur Specific [place] (1.000-1.030) Urine Protein (Negative) Urine Glucose (UA) (Negative) Urine Ketones (Negative) Urine Blood (Negative) Urine Nitrite (Negative) Urine Bilirubin (Negative) Urine Urobilinogen (Negative) Ur Leukocyte Esterase (Negative) Urine Opiates Screen (Neg) Ur Methadone, Qual (Neg) Urine Fentanyl Screen (Neg) Urine Barbiturates (Neg) Ur Phencyclidine (PCP) (Neg) U Amphetamin/Meth Scrn (Neg) MDMA (Ecstasy) Screen (Neg) U Benzodiazepines Scrn (Neg) Ur Cocaine Metabolite (Neg) U Marijuana (THC) Screen (Neg) Ethyl Alcohol mg/dL < 10.0 (<10.0) mg/dl SARS-CoV-2 (PCR) NEGATIVE (Negative) Influenza Type A (PCR) Negative (Neg) Influenza Type B (PCR) Negative (Neg) RSV (RT-PCR) Negative (Neg) Administered Medications Acetaminophen (Acetaminophen 325 Mg Tab) 650 mg PO Q4H PRN PRN Reason: Headache or Minor Fever Stop: 09/21/24 22:01 Last Admin: 08/22/24 23:43 Dose: 650 mg Documented By: APL Aripiprazole (Aripiprazole 5 Mg Tab) 2.5 mg PO QAM [facility] Stop: 09/22/24 12:29 Last Admin: 08/23/24 12:55 Dose: 2.5 mg Documented By: DAVID Escitalopram Oxalate (Escitalopram Oxalate 10 Mg Tab) 5 mg PO QPM [facility] Stop: 09/21/24 22:44 Last Admin: 08/22/24 23:00 Dose: 5 mg Documented By: [id number] Loratadine (Loratadine 10 Mg Tab) 10 mg PO QPM [facility] Stop: 09/21/24 22:44 Last Admin: 08/22/24 22:59 Dose: 10 mg Documented By: [id number] Vitamin D (Cholecalciferol 125 Mcg (5,000 Units) Tab) 125 mcg PO QAM [facility] Stop: 09/22/24 15:59 Last Admin: 08/23/24 17:06 Dose: 125 mcg Documented By: [id number] Discontinued Medications Melatonin (Melatonin 3 Mg Tab) 4.5 mg PO ONE STA Stop: 08/23/24 00:28 Last Admin: 08/23/24 00:40 Dose: 4.5 mg Documented By: RDS Imaging Data Radiologist's Impression: Chest X-Ray 08/22/24 16:50 HISTORY: Chest pain. TECHNIQUE: Portable AP radiograph of the chest. COMPARISON: Chest radiograph dated 07/20/2024 FINDINGS: Underpenetration limits evaluation of the costophrenic angles. No definite focal consolidation. No pneumothorax or obvious effusion. Normal heart size. Left-sided aortic arch. Midline trachea. No acute osseous abnormality. The included upper abdomen is unremarkable. IMPRESSION: No acute cardiopulmonary findings within the limitations of underpenetration. Electronically signed by Victoriano Lo 08-22-2024 5:21 PM Discharge Plan Visit Data Chief Complaint: Chest Pain Stated Complaint: CHEST PAIN, DIZZY, EYESIGHT AND MENTAL HEALTH ED Provider: Casey Beaver ED Midlevel Provider: Casie Padilla Discharge Problem: Suicidal ideation, Chest pain, Dizziness, Anxiety, Depression, Abdominal pain, Sinus pressure Patient Disposition: Admitted As Inpatient Condition: Good Discharge Instructions Interventions: ED Discharge Assessment Last Done: 08/22/24 21:49 Discharge Problem: Chest pain Qualifiers: Chest pain type: unspecified Qualified Code(s): R07.9 - Chest pain, unspecified Depression Qualifiers: Depression Type: unspecified Qualified Code(s): F32.A - Depression, unspecified Abdominal pain Qualifiers: Abdominal location: generalized Qualified Code(s): R10.84 - Generalized abdominal pain
[2024-08-22 17:20] LABS: Basophils # (auto) 0.03 K/uL (0.00-0.20); Basophils % (auto) 0.3 %; Eosinophils # (auto) 0.22 K/uL (0.00-0.50); Eosinophils % (auto) 2.2 %; Hematocrit (blood only) 38.2 % (37.0-47.0); Hemoglobin 12.4 g/dl (12.0-16.0); Immature Granulocytes # (auto) 0.06 K/uL (0.01-0.20); Immature Granulocytes % (auto) 0.6 %; Lymphocytes # (auto) 2.34 K/uL (1.20-3.40); Mean Corpuscular Hemoglobin 28.7 pg (25.0-34.0); Mean Corpuscular Hgb Conc 32.5 g/dL (32.0-36.0); Mean Corpuscular Volume 88.4 fL (80.0-100.0); Monocytes # (auto) 0.33 K/uL (0.11-0.59); Monocytes % (auto) 3.2 %; Neutrophils # (auto) 7.18 K/uL (1.40-6.50); Neutrophils % (auto) 70.7 %; Platelet Count 335 K/uL (130-400); RDW Coefficient of Variation 13.6 % (11.5-14.5); RDW Standard Deviation 44.3 fL (36.4-46.3); Red Blood Count 4.32 M/uL (4.20-5.40); White Blood Count 10.16 K/ul (4.8-10.8)
--- NOTE | 2024-08-22 17:22 | XRay Report ---
HISTORY: Chest pain. TECHNIQUE: Portable AP radiograph of the chest. COMPARISON: Chest radiograph dated 07/20/2024 FINDINGS: Underpenetration limits evaluation of the costophrenic angles. No definite focal consolidation. No pneumothorax or obvious effusion. Normal heart size. Left-sided aortic arch. Midline trachea. No acute osseous abnormality. The included upper abdomen is unremarkable. IMPRESSION: No acute cardiopulmonary findings within the limitations of underpenetration. Electronically signed by Victoriano Lo 08-22-2024 5:21 PM
[2024-08-22 17:32] LABS: Pregnancy Test, Serum Negative (Negative)
[2024-08-22 17:35] LABS: Albumin Globulin Ratio 1.2 (0.9-2); Albumin Level 4.1 gm/dl (3.4-5.0); BUN Creatinine Ratio 17.5 (10-20); Bilirubin,Total 0.3 mg/dl (0.2-1.0); Calcium 9.6 mg/dl (8.6-10.3); Creatinine Clr Calc Pharmacy 168.7 ml/min; Globulin 3.5 gm/dl (2.5-4.0); Potassium 3.8 mmol/L (3.5-5.1); Total Protein 7.6 gm/dl (6.0-8.3)
[2024-08-22 17:40] LABS: Amphetamines+Metham, Urine Neg (Neg); Barbiturates, Urine Neg (Neg); Benzodiazepine, Urine Neg (Neg); Cocaine, Urine Neg (Neg); Fentanyl, Urine Neg (Neg); MDMA (Ecstacy), Urine Neg (Neg); Marijuana, Urine Neg (Neg); Methadone, Urine Neg (Neg); Opiate, Urine Neg (Neg); Phencyclidine, Urine Neg (Neg)
[2024-08-22 18:57] LABS: Appearance Urine Clear (Clear); Bilirubin Urine Negative (Negative); Blood Urine Negative (Negative); Color Urine Yellow; Glucose Urine UA Negative (Negative); Ketones Urine Negative (Negative); Leukocyte Esterase Urine Negative (Negative); Nitrite Urine Negative (Negative); Protein Urine Negative (Negative); Specific Gravity Urine 1.018 (1.000-1.030); Urobilinogen Urine Negative (Negative); pH Urine 7.5 (4.5-7.5)
[2024-08-22 19:32] LABS: Influenza A virus by PCR Negative (Neg); Influenza B virus by PCR Negative (Neg); RSV by PCR Negative (Neg); SARS CoV2 RNA(COVID-19) Ceph NEGATIVE (Negative)
[2024-08-22 19:52] LABS: D Dimer 420 ug/L FEU (0-500)
[2024-08-22] MEDS ORDERED: SODIUM CHLORIDE 0.65% NA SOLN 45 ML (OCEAN) PRN (22:02)
[2024-08-22] MEDS ORDERED: hydrOXYzine HCl 25 MG TAB PO PRN ×2 (22:02)
[2024-08-22] MEDS ORDERED: MAGNESIUM HYDROXIDE SUSP 30 ML UDC PO PRN (22:02)
[2024-08-22] MEDS ORDERED: BISMUTH SUBSALICYLATE 262 MG CHEW PO PRN (22:02)
[2024-08-22] MEDS: LORATADINE 10 MG TAB PO SCH (22:59)
[2024-08-22] MEDS: ESCITALOPRAM OXALATE 10 MG TAB PO SCH (23:00)
[2024-08-22] MEDS: ACETAMINOPHEN 325 MG TAB PO PRN (23:43)
[2024-08-23] MEDS: MELATONIN 3 MG TAB PO STA (00:40)
[2024-08-23] MEDS: ARIPiprazole 5 MG TAB PO SCH (12:55)
--- NOTE | 2024-08-23 15:57 | History & Physical ---
Date of Service August 23, 2024 Impression / Recommendations Impression NIRANJAN ROBLES is a 38-year-old F who currently lives with partner and 10 y/o daughter, has a history of idiopathic intracranial hypertension, DBT during , arrhythmia, and was admitted on 08/22/24 21:22 on a 201 voluntary commitment for anxiety and depression in the context of health worries. Presentation consistent with a major depressive episode likely recurrent and with anxious distress, and illness anxiety disorder. Pt highly focused on health concerns with repeated testing and f/u being inconclusive and unremarkable; recent neurology concern for IIH however pt unable to tolerate treatment and s elf d/c. Some of patient's physical complaints may be somatic in nature. Pt has strong family history of depression, anxiety, completed suicide. Labs reviewed: CBC, CMP, UA, UDS, BAL unremarkable. EKG reviewed with NSR and no QTc prolongation. Deficient Vit D level. Plan to start Aripiprazole for SSRI antidepressant augmentation to target depression and racing thoughts and Lorazepam nightly for sleep; medication s/e, adverse effects discussed with the patient and agreeable. Pt would benefit from regular reassurance regarding health status, limit overtesting for medical problems, and cognitive behavioral therapy to address maladaptive thoughts related to her health. Overall, I spent a total of 75 minutes with this case including review of chart records, nursing report, review of lab work, direct evaluation of the patient at bedside, counseling the patient, multidisciplinary team meeting, orders, and documentation in the electronic health record. (1) Palpitations: (2) Major depressive disorder, recurrent episode with anxious distress: (3) Illness anxiety disorder: (4) Pseudotumor cerebri: (5) Eustachian tube dysfunction: (6) Prediabetes: (7) Vitamin D deficiency: Plan 08/23/2024:The patient was admitted to the [facility] on q15 min checks (behavioral with suicide precautions) for safety. The patient will participate in group, recreational, and milieu therapies and will be offered additional individual and family sessions as clinically appropriate. -Continue Escitalopram 5mg daily -Start Aripiprazole 2.5mg QD -Start Lorazepam 1mg HS -Stool sample c diff / isolation precautions / MNPR Inventory Assets Strengths: social supports, problem solving Needs: improved self esteem, improved coping skills Suicide Risk Level Suicide Risk Level: Moderate (q15 min suicide checks) Risk Factors Assessment Male: No : Yes Do You Have Access To A Gun?: Yes Health Problems: Yes Mental Health Diagnoses: Yes Substance Use Disorders: No Previous Attempt: No Family History of Suicide: Yes Previous Psychiatric Hospitalization: No Hopelessness: Yes Protective Factors Assessment Synagogue Beliefs: No : Yes Responsible for Young Children: Yes 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 Chief Complaint Anxiety History of Present Illness the patient reports an increase in racing thoughts and depression over the last 3 weeks. Has been engaging in some self-harm by digging her fingernails into her skin. Complains of physical symptoms of dizziness and ear ringing. Reports recent diagnosis of idiopathic intracranial hypertension by neurologist and was prescribed acetazolamide. Was unable to tolerate the higher dose and was reduced to 2 to 50 mg twice daily. Reports that she still could not tolerate it and self-discontinued. Reports past problems of eustachian tube dysfunction. Reports spinal tap for idiopathic intracranial hypertension was inconclusive. Complains of visual changes, chest pain, ringing in ears, rise in blood pressure when standing, dizziness. Reports past tilt table test did not raise her blood pressure and was not formally diagnosed with POTS. Reports that she is "not suicidal" and wants relief with her anxiety. She has a fear that her condition might not improve and that she may and not be there for her family. Reports episode of diarrhea this morning and shooting pains that are nonspecific. Reports many of these problems started 6 weeks ago. Awaiting follow-up with cardiology. Saw optometry with unremarkable exam. Reports a decrease in energy, decrease in concentration, anhedonia, increase in guilt, and "feeling li ke a failure". Ongoing sleep maintenance problems with racing thoughts. Psychiatric history: Past sertraline use (many years ago, unclear on reason for taking), buspar (ineffective). No past psychiatric hospitalizations. Suicide completed by cousin 5 years ago. Mother with depression/anxiety on multiple psychiatric medications. Substance and alcohol history: Rare alcohol intake; denies problem. Denies drug or tobacco use. Social history: Parents when she was 10 years of age. Stayed with mother who was often angry at the patient and would take out her stressors on her. Denies any physical or sexual abuse. Lives with her long-term partner and 10-year-old daughter. 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 Has PCP who manages psychiatric medications and outpatient neurologist. Currently on wait list for therapy and outpatient psychiatry. Has guns at home with partner and locked. Past Psychiatric History Current Psychiatric Diagnosis: Anxiety Do You Have Access To A Gun?: Yes History of Previous Suicide Attempt: No Allergies Allergy/AdvReac Type Severity Reaction Status Date / Time amoxicillin Allergy Severe ANAPHYLAXIS Verified 08/13/24 14:38 clavulanic acid Allergy Severe ANAPHYLAXIS Verified 08/13/24 14:38 Iodinated Contrast Media Allergy Severe Hives, Verified 08/13/24 14:38 tongue swelling doxycycline Allergy Intermediate Rash Verified 08/13/24 14:38 fish derived Allergy Intermediate Hives Verified 08/13/24 14:38 metronidazole Allergy Intermediate rash Verified 08/13/24 14:38 sulfamethoxazole Allergy Intermediate tongue Verified 08/13/24 14:38 [From Bactrim] swelling trimethoprim [From Bactrim] Allergy Intermediate tongue Verified 08/13/24 14:38 swelling coffee (Coffea arabica) Allergy Unknown per Verified 08/13/24 14:38 allergy testing Penicillins Allergy Unknown per Verified 08/13/24 14:38 allergy testing Home Medications Medication Instructions Recorded Confirmed Type loratadine 10 mg tablet (Claritin) 10 mg PO HS Congestion 03/21/20 08/22/24 History melatonin 5 mg tablet 5 mg PO HS Sleep 10/12/21 08/22/24 History escitalopram oxalate 10 mg tablet 5 mg PO PM 08/02/24 08/22/24 History magnesium glycinate 200 mg PO HS 08/22/24 08/22/24 History acetazolamide 250 mg tablet 250 mg PO BID 08/23/24 08/23/24 History buspirone 5 mg tablet 2.5 mg PO BID 08/23/24 08/23/24 History Family History Family History of: Depression and Anxiety Alcohol History Hx of Alcohol Use Over the Past 12 Months: No (Once in a year. 2 beers during a wedding last summer) AUDIT Total Score: 1 Smoking Use Have You Smoked or Used Tobacco Products in the Last 30 Days: No tobacco type: cigarettes Smoking Status: Never smoker Substance History Hx of Prescription Med Misuse Over the Past 12 Months: No Hx of Over the Counter Med Misuse Over the Past 12 Months: No Hx of Inhalent Misuse Over the Past 12 Months: No Hx of Organic Substance Use Over the Past 12 Months: No Hx of Illegal Substances/Street Drug Use Over Past 12 Months: No Problems as a Result of Past Substance Use: None Identified Personal History Living Arrangements: Home Beliefs That Will Affect Care: None Patient History Medical History Abnormal EEG Ankylosing spondylitis Anxiety and depression Change in vision Chest pain Chest pain COVID-19 Degenerative disc disease Dizziness DVT (deep venous thrombosis) Eustachian tube dysfunction Fatigue GERD (gastroesophageal reflux disease) Headache Heart palpitations High cholesterol History of bradycardia History of bulimia History of pre-eclampsia Insomnia Iron deficiency anemia Migraine Morbid obesity with BMI of 40.0-44.9, adult Seasonal allergies Thoracic disc disease Vitamin B12 deficiency Vitamin D deficiency Surgical History History of cardiac cath 06/2015 @ [facility] [place]--d/t chest pain, normal no stents History of cholecystectomy History of esophagogastroduodenoscopy (EGD) History of wisdom tooth extraction Family History (System 10/17/22 @ 08:26 by Sophia Benavidez) Father Hypertension Mother Diabetes Grandfather (Maternal) Diabetes Coronary heart disease Myocardial infarction Congestive heart failure Colorectal cancer Grandfather (Paternal) Diabetes Coronary heart disease Myocardial infarction, Onset Age: 50 Grandmother (Paternal) Pulmonary emphysema Sick sinus syndrome Diabetes Pacemaker Grandmother (Maternal) Family history of diabetes mellitus Aunt Pulmonary emphysema Family/Other Myocardial infarction, Onset Age: 37 Coronary heart disease Uncle Stroke Other Asthma Lymphoma No family history of adverse response to anesthesia Denies family history of Ovarian cancer Prostate cancer Breast cancer Social History (System 10/17/22 @ 08:26 by Sophia Benavidez) Smoking Status: Never smoker Tobacco Type: Cigarettes Second Hand Exposure: No; Do You Dip or Chew Tobacco: No; Hx Alcohol Use: No Hx Substance Use: No Preferred Language: Icelandic Communication Ability: Effective Communication Tools: Other Visual Impairment: No Limitations Hearing Ability: Normal Personal Service Workers Required: No Beliefs That Will Affect Care: None marital status: Current Living Situation: Spouse and Family Current Living Situation Comment: Lives with and daughter current occupational status: unemployed How many Children do You have: 1 Feels Safe at Home: Yes Childhood Exposure to Second-Hand Smoke: Yes Diet: regular caffeine: No during the past year weight has: remained stable Dental Care, Regularly: Yes Physical Activity Frequency: 5-6 Times per Week Seatbelt Use: never Sunscreen Use: Yes Gender Identity: Female Assistive Devices: Glasses Physical Exam Mental Examination: Appearance: Disheveled Eye Contact: Maintains Eye Contact Motor Behavior: Restless Speech: Perseverating Mood: Calm, Sad, Crying and Tearful Affect: Anxious and Sad Thought Process: Disorganized Insight: Fair Judgement: Fair Vital Signs (Past 24 Hours): Last Vital Signs Temp 36.6 C 08/23/24 06:40 Pulse 81 08/23/24 06:41 Resp 16 08/23/24 06:40 BP 151/92 H 08/23/24 06:41 Pulse Ox 96 08/22/24 22:00 O2 Del Method Room Air 08/22/24 22:00 Exam Statement: A physical exam was performed in the ED for the purposes of medical clearance. I accept that physical as correct and adequate for the purposes of the inpatient physical exam. Results & Data ([facility]) Laboratory Results Laboratory Results - last 24 hr 08/22/24 08/22/24 08/22/24 16:00 16:06 16:17 WBC 10.16 RBC 4.32 Hgb 12.4 Hct 38.2 MCV 88.4 MCH 28.7 MCHC 32.5 RDW Std Deviation 44.3 RDW Coeff of Yash 13.6 Plt Count 335 MPV 10.0 Immature Gran % (Auto) 0.6 Neut % (Auto) 70.7 Lymph % (Auto) 23.0 Rhea % (Auto) 3.2 Eos % (Auto) 2.2 Baso % (Auto) 0.3 Neut # (Auto) 7.18 H Lymph # (Auto) 2.34 Rhea # (Auto) 0.33 Eos # (Auto) 0.22 Baso # (Auto) 0.03 Immature Gran # (Auto) 0.06 D-Dimer Cancelled Sodium 138 Potassium 3.8 Chloride 102 Carbon Dioxide 28 Anion Gap 8 BUN 10 Creatinine 0.57 L Est Cr Clr Drug Dosing 168.7 eGFR 120.71 BUN/Creatinine Ratio 17.5 Glucose 121 H Calcium 9.6 Total Bilirubin 0.3 AST 17 ALT 14 Alkaline Phosphatase 111 H Troponin I High Sens 4.0 Total Protein 7.6 Albumin 4.1 Globulin 3.5 Albumin/Globulin Ratio 1.2 Lipase 17 HCG, Qual Negative Urine Color Yellow Urine Appearance Clear Urine pH 7.5 Ur Specific Bradshaw 1.018 Urine Protein Negative Urine Glucose (UA) Negative Urine Ketones Negative Urine Blood Negative Urine Nitrite Negative Urine Bilirubin Negative Urine Urobilinogen Negative Ur Leukocyte Esterase Negative Stl C. diff Tox B Gene Urine Opiates Screen Neg Ur Methadone, Qual Neg Urine Fentanyl Screen Neg Urine Barbiturates Neg Ur Phencyclidine (PCP) Neg U Amphetamin/Meth Scrn Neg MDMA (Ecstasy) Screen Neg U Benzodiazepines Scrn Neg Ur Cocaine Metabolite Neg U Marijuana (THC) Screen Neg Ethyl Alcohol mg/dL SARS-CoV-2 (PCR) Influenza Type A (PCR) Influenza Type B (PCR) RSV (RT-PCR) 08/22/24 08/22/24 08/22/24 17:00 18:33 18:35 WBC RBC Hgb Hct MCV MCH MCHC RDW Std Deviation RDW Coeff of Yash Plt Count MPV Immature Gran % (Auto) Neut % (Auto) Lymph % (Auto) Rhea % (Auto) Eos % (Auto) Baso % (Auto) Neut # (Auto) Lymph # (Auto) Rhea # (Auto) Eos # (Auto) Baso # (Auto) Immature Gran # (Auto) D-Dimer 420 Sodium Potassium Chloride Carbon Dioxide Anion Gap BUN Creatinine Est Cr Clr Drug Dosing eGFR BUN/Creatinine Ratio Glucose Calcium Total Bilirubin AST ALT Alkaline Phosphatase Troponin I High Sens Total Protein Albumin Globulin Albumin/Globulin Ratio Lipase HCG, Qual Urine Color Urine Appearance Urine pH Ur Specific Bradshaw Urine Protein Urine Glucose (UA) Urine Ketones Urine Blood Urine Nitrite Urine Bilirubin Urine Urobilinogen Ur Leukocyte Esterase Stl C. diff Tox B Gene Urine Opiates Screen Ur Methadone, Qual Urine Fentanyl Screen Urine Barbiturates Ur Phencyclidine (PCP) U Amphetamin/Meth Scrn MDMA (Ecstasy) Screen U Benzodiazepines Scrn Ur Cocaine Metabolite U Marijuana (THC) Screen Ethyl Alcohol mg/dL < 10.0 SARS-CoV-2 (PCR) NEGATIVE Influenza Type A (PCR) Negative Influenza Type B (PCR) Negative RSV (RT-PCR) Negative 08/23/24 14:00 WBC RBC Hgb Hct MCV MCH MCHC RDW Std Deviation RDW Coeff of Yash Plt Count MPV Immature Gran % (Auto) Neut % (Auto) Lymph % (Auto) Rhea % (Auto) Eos % (Auto) Baso % (Auto) Neut # (Auto) Lymph # (Auto) Rhea # (Auto) Eos # (Auto) Baso # (Auto) Immature Gran # (Auto) D-Dimer Sodium Potassium Chloride Carbon Dioxide Anion Gap BUN Creatinine Est Cr Clr Drug Dosing eGFR BUN/Creatinine Ratio Glucose Calcium Total Bilirubin AST ALT Alkaline Phosphatase Troponin I High Sens Total Protein Albumin Globulin Albumin/Globulin Ratio Lipase HCG, Qual Urine Color Urine Appearance Urine pH Ur Specific Bradshaw Urine Protein Urine Glucose (UA) Urine Ketones Urine Blood Urine Nitrite Urine Bilirubin Urine Urobilinogen Ur Leukocyte Esterase Stl C. diff Tox B Gene Pending Urine Opiates Screen Ur Methadone, Qual Urine Fentanyl Screen Urine Barbiturates Ur Phencyclidine (PCP) U Amphetamin/Meth Scrn MDMA (Ecstasy) Screen U Benzodiazepines Scrn Ur Cocaine Metabolite U Marijuana (THC) Screen Ethyl Alcohol mg/dL SARS-CoV-2 (PCR) Influenza Type A (PCR) Influenza Type B (PCR) RSV (RT-PCR) Current Inpatient Medications Current Inpatient Medications: Current Inpatient Medications Acetaminophen (Acetaminophen 325 Mg Tab) 650 mg PO Q4H PRN PRN Reason: Headache or Minor Fever Stop: 09/21/24 22:01 Last Admin: 08/22/24 23:43 Dose: 650 mg Al Hydrox/Mg Hydrox/Simethicone (Aluminum/Magnesium Susp 30 Ml Udc) 30 ml PO Q4H PRN PRN Reason: GI Upset Stop: 09/21/24 22:01 Aripiprazole (Aripiprazole 5 Mg Tab) 2.5 mg PO QAM ANNA Stop: 09/22/24 12:29 Last Admin: 08/23/24 12:55 Dose: 2.5 mg Bismuth Subsalicylate (Bismuth Subsalicylate 262 Mg Chew) 2 tab PO Q30M PRN PRN Reason: Loose Stool/Diarrhea Stop: 09/21/24 22:01 Escitalopram Oxalate (Escitalopram Oxalate 10 Mg Tab) 5 mg PO QPM ANNA Stop: 09/21/24 22:44 Last Admin: 08/22/24 23:00 Dose: 5 mg Hydroxyzine HCl (Hydroxyzine Hcl 25 Mg Tab) 50 mg PO HSZ PRN PRN Reason: Insomnia Stop: 09/21/24 22:01 Hydroxyzine HCl (Hydroxyzine Hcl 25 Mg Tab) 25 mg PO Q4H PRN PRN Reason: Anxiety Stop: 09/21/24 22:01 Loratadine (Loratadine 10 Mg Tab) 10 mg PO QPM ANNA Stop: 09/21/24 22:44 Last Admin: 08/22/24 22:59 Dose: 10 mg Lorazepam (Lorazepam 1 Mg Tab) 1 mg PO HS [facility] Stop: 09/22/24 21:59 Magnesium Hydroxide (Magnesium Hydroxide Susp 30 Ml Udc) 30 ml PO DAILY PRN PRN Reason: Constipation Stop: 09/21/24 22:01 Melatonin (Melatonin 3 Mg Tab) 4.5 mg PO HS [facility] Stop: 09/22/24 21:59 Sodium Chloride (Sodium Chloride 0.65% Na Soln 45 Ml ([place])) 1 - 2 sprays NA PRN PRN PRN Reason: Nasal Dryness/Congestion Stop: 09/21/24 22:01
[2024-08-23] MEDS: CHOLECALCIFEROL 125 MCG (5,000 UNITS) TAB PO SCH (17:06)
[2024-08-23] MEDS: ALUMINUM/MAGNESIUM SUSP 30 ML UDC PO PRN (18:29)
[2024-08-23] MEDS: LORazepam 0.5 MG TAB PO STA (19:49)
[2024-08-23] MEDS: MELATONIN 3 MG TAB PO SCH (21:30)
[2024-08-23] MEDS: LORazepam 1 MG TAB PO SCH (21:31)
--- NOTE | 2024-08-24 06:03 | Electrocardiogram Report ---
Test Reason : Blood Pressure : */* mmHG Vent. Rate : 93 BPM Atrial Rate : 93 BPM P-R Int : 172 ms QRS Dur : 76 ms QT Int : 364 ms P-R-T Axes : 21 4 41 degrees QTcB Int : 452 ms Normal sinus rhythm with sinus arrhythmia Minimal voltage criteria for LVH, may be normal variant ( R in aVL ) Cannot rule out Anterior infarct , age undetermined Abnormal ECG When compared with ECG of 05-Aug-2024 06:23, No significant change was found Confirmed by Darryl Fernandez ([id number]) on 08/24/2024 6:03:16 AM Referred By: REFERRED SELF Confirmed By: Darryl Fernandez
[2024-08-24 06:41] VITALS: RESP 16
[2024-08-24 08:38] LABS: Chol HDL Ratio 5.6 (0-5)
[2024-08-24 08:42] LABS: Estimated Average Glucose 117 mg/dl; Hemoglobin A1C 5.7 % (4.5-5.6)
[2024-08-24] MEDS: ARIPiprazole 5 MG TAB PO ONE (12:01)
--- NOTE | 2024-08-24 12:51 | Psychiatric Progress Note ---
Date of Service August 24, 2024 Impression / Recommendations Impression NIRANJAN ROBLES is a 38-year-old F who currently lives with partner and 10 y/o daughter, has a history of idiopathic intracranial hypertension, DBT during , arrhythmia, and was admitted on 08/22/24 21:22 on a 201 voluntary commitment for anxiety and depression in the context of health worries. Presentation consistent with a major depressive episode likely recurrent and with anxious distress, and illness anxiety disorder. Pt highly focused on health concerns with repeated testing and f/u being inconclusive and unremarkable; recent neurology concern for IIH however pt unable to tolerate treatment and s elf d/c. Some of patient's physical complaints may be somatic in nature. Pt has strong family history of depression, anxiety, completed suicide. Pt would benefit from regular reassurance regarding health status, limit overtesting for medical problems, and cognitive behavioral therapy to address maladaptive thoughts related to her health. A: Patient continues to be distressed with physical anxiety symptoms. Patient has excess anxiety of her health status and provided reassurance. Has been refusing recommended lorazepam. EKG reviewed and QTc within range however high normal. Stool negative for c-diff. Metabolic and vitamin labs reviewed and unremarkable except for deficient vitamin D. Plan to start supplementation. Has been tolerating Abilify well plan to increase dose further today. Overall, I spent a total of 40 minutes with this case including review of chart records, nursing report, review of lab work, direct evaluation of the patient at bedside, counseling the patient, multidisciplinary team meeting, orders, and documentation in the electronic health record. (1) Palpitations: (2) Diarrhea: (3) Dizziness: (4) Major depressive disorder, recurrent episode with anxious distress: (5) Illness anxiety disorder: (6) Pseudotumor cerebri: (7) Eustachian tube dysfunction: (8) Vitamin D deficiency: (9) Prediabetes: Plan 08/24/2024: Increase aripiprazole to 5 mg daily Repeat EKG given history of prolonged QTc interval Hospitalist consult for unresolving diarrhea, abdominal/chest pains MNPR and isolation precautions d/c 08/23/2024:The patient was admitted to the [facility] ([facility] mental health unit) on q15 min checks (behavioral with suicide precautions) for safety. The patient will participate in group, recreational, and milieu therapies and will be offered additional individual and family sessions as clinically appropriate. -Continue Escitalopram 5mg daily -Start Aripiprazole 2.5mg QD -Start Lorazepam 1mg HS -Stool sample c diff / isolation precautions / MNPR Inventory Assets Strengths: social supports, problem solving Needs: improved self esteem, improved coping skills Suicide Risk Level Suicide Risk Level: Moderate (q15 min suicide checks) Risk Factors Assessment Male: No : Yes Do You Have Access To A Gun?: No Health Problems: Yes Mental Health Diagnoses: Yes Substance Use Disorders: No Previous Attempt: No Family History of Suicide: Yes Previous Psychiatric Hospitalization: No Hopelessness: Yes Protective Factors Assessment Rastafari Beliefs: No : Yes Responsible for Young Children: Yes 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 Chief Complaint Anxiety, diarrhea, chest/abd pain Review of Systems Sleep Information Total Hours of Sleep: 7.5 Meal Information Percent Meal Consumed - Breakfast: 0 Percent Meal Consumed - Lunch: 75 Percent Meal Consumed - Dinner: 50 Nutrition Comment: reports an upset stomache and stayed in bed for bfast Subjective Subjective Patient was seen & assessed and interval progress reviewed with treatment team nursing and social work Patient slept 7.5 hours. Blood pressure slightly improved. On interview the patient reports feeling worse. Complains of dizziness and chest pain. Highly focused on medical problem. Reports feeling like she may . Refusing to Ativan last night and in the afternoon. Reports waking up often through the night and does not feel rested. Complains of ongoing diarrhea which has not resolved and liquid inconsistency. Complains of chest and abdominal pain after eating meals. Denies suicidal ideation. Physical Exam Mental Examination Appearance: Disheveled Eye Contact: Maintains Eye Contact Motor Behavior: Restless Speech: Perseverating Mood: Calm, Sad, Crying and Tearful Affect: Anxious and Sad Thought Process: Disorganized Insight: Fair Judgement: Fair Vital Signs (Past 24 Hours) Last Vital Signs Temp 36.9 C 08/24/24 06:39 Pulse 90 03/10/25 06:40 Resp 16 08/24/24 06:39 BP 144/104 H 08/24/24 06:40 Pulse Ox 96 08/23/24 18:31 O2 Del Method Room Air 08/23/24 18:31 Results & Data ([facility]) Laboratory Results Laboratory Results - last 24 hr 08/23/24 08/24/24 14:00 07:36 Estimat Average Glucose 117 Hemoglobin A1c 5.7 H Triglycerides 163 H Cholesterol 202 H LDL Cholesterol, Calc 133 VLDL Cholesterol, Calc 33 H HDL Cholesterol 36 Cholesterol/HDL Ratio 5.6 H Vitamin B12 303 Stl C. diff Tox B Gene Negative Cdiff Gene Current Inpatient Medications Current Inpatient Medications: Current Inpatient Medications Acetaminophen (Acetaminophen 325 Mg Tab) 650 mg PO Q4H PRN PRN Reason: Headache or Minor Fever Stop: 09/21/24 22:01 Last Admin: 08/22/24 23:43 Dose: 650 mg Al Hydrox/Mg Hydrox/Simethicone (Aluminum/Magnesium Susp 30 Ml Udc) 30 ml PO Q4H PRN PRN Reason: GI Upset Stop: 09/21/24 22:01 Last Admin: 08/23/24 18:29 Dose: 30 ml Aripiprazole (Aripiprazole 5 Mg Tab) 5 mg PO QAM ANNA Stop: 09/24/24 08:59 Bismuth Subsalicylate (Bismuth Subsalicylate 262 Mg Chew) 2 tab PO Q30M PRN PRN Reason: Loose Stool/Diarrhea Stop: 09/21/24 22:01 Escitalopram Oxalate (Escitalopram Oxalate 10 Mg Tab) 5 mg PO QPM ANNA Stop: 09/21/24 22:44 Last Admin: 08/23/24 21:29 Dose: 5 mg Hydroxyzine HCl (Hydroxyzine Hcl 25 Mg Tab) 50 mg PO HSZ PRN PRN Reason: Insomnia Stop: 09/21/24 22:01 Hydroxyzine HCl (Hydroxyzine Hcl 25 Mg Tab) 25 mg PO Q4H PRN PRN Reason: Anxiety Stop: 09/21/24 22:01 Loratadine (Loratadine 10 Mg Tab) 10 mg PO QPM ANNA Stop: 09/21/24 22:44 Last Admin: 08/23/24 21:30 Dose: 10 mg Lorazepam (Lorazepam 1 Mg Tab) 1 mg PO HS ANNA Stop: 09/22/24 21:59 Last Admin: 08/23/24 21:31 Dose: Not Given Magnesium Hydroxide (Magnesium Hydroxide Susp 30 Ml Udc) 30 ml PO DAILY PRN PRN Reason: Constipation Stop: 09/21/24 22:01 Melatonin (Melatonin 3 Mg Tab) 4.5 mg PO [facility] Stop: 09/22/24 21:59 Last Admin: 08/23/24 21:30 Dose: 4.5 mg Sodium Chloride (Sodium Chloride 0.65% Na Soln 45 Ml ([place])) 1 - 2 sprays NA PRN PRN PRN Reason: Nasal Dryness/Congestion Stop: 09/21/24 22:01 Vitamin D (Cholecalciferol 125 Mcg (5,000 Units) Tab) [address] [facility] Stop: 09/22/24 15:59 Last Admin: 08/24/24 11:21 Dose: 125 mcg
[2024-08-24 19:50] VITALS: BP 135/92; TEMP 97.9; O2SAT 93
--- NOTE | 2024-08-24 20:20 | Hospitalist Consultation ---
Date of Consultation August 24, 2024 History of Present Illness Attending Physician: Benjamin Shannon MD Allergies Allergy/AdvReac Type Severity Reaction Status Date / Time amoxicillin Allergy Severe ANAPHYLAXIS Verified 08/13/24 14:38 clavulanic acid Allergy Severe ANAPHYLAXIS Verified 08/13/24 14:38 Iodinated Contrast Media Allergy Severe Hives, Verified 08/13/24 14:38 tongue swelling doxycycline Allergy Intermediate Rash Verified 08/13/24 14:38 fish derived Allergy Intermediate Hives Verified 08/13/24 14:38 metronidazole Allergy Intermediate rash Verified 08/13/24 14:38 sulfamethoxazole Allergy Intermediate tongue Verified 08/13/24 14:38 [From Bactrim] swelling trimethoprim [From Bactrim] Allergy Intermediate tongue Verified 08/13/24 14:38 swelling coffee (Coffea arabica) Allergy Unknown per Verified 08/13/24 14:38 allergy testing Penicillins Allergy Unknown per Verified 08/13/24 14:38 allergy testing Home Medications Medication Instructions Recorded Confirmed Type loratadine 10 mg tablet (Claritin) 10 mg PO HS Congestion 03/21/20 08/22/24 History melatonin 5 mg tablet 5 mg PO HS Sleep 10/12/21 08/22/24 History escitalopram oxalate 10 mg tablet 5 mg PO PM 08/02/24 08/22/24 History magnesium glycinate 200 mg PO HS 08/22/24 08/22/24 History acetazolamide 250 mg tablet 250 mg PO BID 08/23/24 08/23/24 History buspirone 5 mg tablet 2.5 mg PO BID 08/23/24 08/23/24 History Patient History Medical History Abnormal EEG Ankylosing spondylitis Anxiety and depression Change in vision Chest pain Chest pain COVID-19 Degenerative disc disease Dizziness DVT (deep venous thrombosis) Eustachian tube dysfunction Fatigue GERD (gastroesophageal reflux disease) Headache Heart palpitations High cholesterol History of bradycardia History of bulimia History of pre-eclampsia Insomnia Iron deficiency anemia Migraine Morbid obesity with BMI of 40.0-44.9, adult Seasonal allergies Thoracic disc disease Vitamin B12 deficiency Vitamin D deficiency Surgical History History of cardiac cath 06/2015 @ [facility] [place]--d/t chest pain, normal no stents History of cholecystectomy History of esophagogastroduodenoscopy (EGD) History of wisdom tooth extraction Family History (System 10/17/22 @ 08:26 by Sophia Benavidez) Father Hypertension Mother Diabetes Grandfather (Maternal) Diabetes Coronary heart disease Myocardial infarction Congestive heart failure Colorectal cancer Grandfather (Paternal) Diabetes Coronary heart disease Myocardial infarction, Onset Age: 50 Grandmother (Paternal) Pulmonary emphysema Sick sinus syndrome Diabetes Pacemaker Grandmother (Maternal) Family history of diabetes mellitus Aunt Pulmonary emphysema Family/Other Myocardial infarction, Onset Age: 37 Coronary heart disease Uncle Stroke Other Asthma Lymphoma No family history of adverse response to anesthesia Denies family history of Ovarian cancer Prostate cancer Breast cancer Social History (System 10/17/22 @ 08:26 by Sophia Benavidez) Smoking Status: Never smoker Tobacco Type: Cigarettes Second Hand Exposure: No; Do You Dip or Chew Tobacco: No; Hx Alcohol Use: No Hx Substance Use: No Preferred Language: Georgian Communication Ability: Effective Communication Tools: Other Visual Impairment: No Limitations Hearing Ability: Normal [place] Required: No Beliefs That Will Affect Care: None marital status: Current Living Situation: Spouse and Family Current Living Situation Comment: Lives with and daughter current occupational status: unemployed How many Children do You have: 1 Feels Safe at Home: Yes Childhood Exposure to Second-Hand Smoke: Yes Diet: regular caffeine: No during the past year weight has: remained stable Dental Care, Regularly: Yes Physical Activity Frequency: 5-6 Times per Week Seatbelt Use: never Sunscreen Use: Yes Gender Identity: Female Assistive Devices: Glasses Results & Data Results & Data Vital Signs (Past 12 Hours) Vital Signs Temp Pulse Pulse Pulse Resp BP BP 08/24/24 19:49 36.6 C 93 H 16 135/92 08/24/24 13:42 90 105 H 129/90 135/98 Pulse Ox O2 Del Method 08/24/24 19:49 93 Room Air 08/24/24 13:42 Laboratory Results Laboratory Results WBC 10.16 K/ul (4.8-10.8) 08/22/24 16:17 RBC 4.32 M/uL (4.20-5.40) 08/22/24 16:17 Hgb 12.4 g/dl (12.0-16.0) 08/22/24 16:17 Hct 38.2 % (37.0-47.0) 08/22/24 16:17 MCV 88.4 fL (80.0-100.0) 08/22/24 16:17 MCH 28.7 pg (25.0-34.0) 08/22/24 16:17 MCHC 32.5 g/dL (32.0-36.0) 08/22/24 16:17 RDW Std Deviation 44.3 fL (36.4-46.3) 08/22/24 16:17 RDW Coeff of Yash 13.6 % (11.5-14.5) 08/22/24 16:17 Plt Count 335 K/uL (130-400) 08/22/24 16:17 MPV 10.0 fL (9.4-12.4) 08/22/24 16:17 Immature Gran % (Auto) 0.6 % 08/22/24 16:17 Neut % (Auto) 70.7 % 08/22/24 16:17 Lymph % (Auto) 23.0 % 08/22/24 16:17 Donley % (Auto) 3.2 % 08/22/24 16:17 Eos % (Auto) 2.2 % 08/22/24 16:17 Baso % (Auto) 0.3 % 08/22/24 16:17 Neut # (Auto) 7.18 K/uL (1.40-6.50) H 08/22/24 16:17 Lymph # (Auto) 2.34 K/uL (1.20-3.40) 08/22/24 16:17 Donley # (Auto) 0.33 K/uL (0.11-0.59) 08/22/24 16:17 Eos # (Auto) 0.22 K/uL (0.00-0.50) 08/22/24 16:17 Baso # (Auto) 0.03 K/uL (0.00-0.20) 08/22/24 16:17 Immature Gran # (Auto) 0.06 K/uL (0.01-0.20) 08/22/24 16:17 D-Dimer 420 ug/L FEU (0-500) 08/22/24 18:35 Sodium 138 mmol/L (136-145) 08/22/24 16:17 Potassium 3.8 mmol/L (3.5-5.1) 08/22/24 16:17 Chloride 102 mmol/L (98-107) 08/22/24 16:17 Carbon Dioxide 28 mmol/L (21-32) 08/22/24 16:17 Anion Gap 8 (3-11) 08/22/24 16:17 BUN 10 mg/dl (6-23) 08/22/24 16:17 Creatinine 0.57 mg/dl (0.6-1.2) L 08/22/24 16:17 Est Cr Clr Drug Dosing 168.7 ml/min 08/22/24 16:17 eGFR 120.71 08/22/24 16:17 BUN/Creatinine Ratio 17.5 (10-20) 08/22/24 16:17 Glucose 121 mg/dl (70-99(Fasting)) H 08/22/24 16:17 Estimat Average Glucose 117 mg/dl 08/24/24 07:36 Hemoglobin A1c 5.7 % (4.5-5.6) H 08/24/24 07:36 Calcium 9.6 mg/dl (8.6-10.3) 08/22/24 16:17 Total Bilirubin 0.3 mg/dl (0.2-1.0) 08/22/24 16:17 AST 17 U/L (13-39) 08/22/24 16:17 ALT 14 U/L (7-52) 08/22/24 16:17 Alkaline Phosphatase 111 U/L (34-104) H 08/22/24 16:17 Troponin I High Sens 4.0 pg/ml (0-14) 08/22/24 16:17 Total Protein 7.6 gm/dl (6.0-8.3) 08/22/24 16:17 Albumin 4.1 gm/dl (3.4-5.0) 08/22/24 16:17 Globulin 3.5 gm/dl (2.5-4.0) 08/22/24 16:17 Albumin/Globulin Ratio 1.2 (0.9-2) 08/22/24 16:17 Triglycerides 163 mg/dl (0-150) H 08/24/24 07:36 Cholesterol 202 mg/dl (0-200) H 08/24/24 07:36 LDL Cholesterol, Calc 133 mg/dl 08/24/24 07:36 VLDL Cholesterol, Calc 33 mg/dl (0-30) H 08/24/24 07:36 HDL Cholesterol 36 mg/dl 08/24/24 07:36 Cholesterol/HDL Ratio 5.6 (0-5) H 08/24/24 07:36 Lipase 17 U/L (11-82) 08/22/24 16:17 Vitamin B12 303 pg/ml (180-914) 08/24/24 07:36 HCG, Qual Negative (Negative) 08/22/24 16:17 Urine Color Yellow 08/22/24 16:00 Urine Appearance Clear (Clear) 08/22/24 16:00 Urine pH 7.5 (4.5-7.5) 08/22/24 16:00 Ur Specific Vel[place] 1.018 (1.000-1.030) 08/22/24 16:00 Urine Protein Negative (Negative) 08/22/24 16:00 Urine Glucose (UA) Negative (Negative) 08/22/24 16:00 Urine Ketones Negative (Negative) 08/22/24 16:00 Urine Blood Negative (Negative) 08/22/24 16:00 Urine Nitrite Negative (Negative) 08/22/24 16:00 Urine Bilirubin Negative (Negative) 08/22/24 16:00 Urine Urobilinogen Negative (Negative) 08/22/24 16:00 Ur Leukocyte Esterase Negative (Negative) 08/22/24 16:00 Stl C. diff Tox B Gene Negative Cdiff Gene (Neg) 08/23/24 14:00 Urine Opiates Screen Neg (Neg) 08/22/24 16:06 Ur Methadone, Qual Neg (Neg) 08/22/24 16:06 Urine Fentanyl Screen Neg (Neg) 08/22/24 16:06 Urine Barbiturates Neg (Neg) 08/22/24 16:06 Ur Phencyclidine (PCP) Neg (Neg) 08/22/24 16:06 U Amphetamin/Meth Scrn Neg (Neg) 08/22/24 16:06 MDMA (Ecstasy) Screen Neg (Neg) 08/22/24 16:06 U Benzodiazepines Scrn Neg (Neg) 08/22/24 16:06 Ur Cocaine Metabolite Neg (Neg) 08/22/24 16:06 U Marijuana (THC) Screen Neg (Neg) 08/22/24 16:06 Ethyl Alcohol mg/dL < 10.0 mg/dl (<10.0) 08/22/24 17:00 SARS-CoV-2 (PCR) NEGATIVE (Negative) 08/22/24 18:33 Influenza Type A (PCR) Negative (Neg) 08/22/24 18:33 Influenza Type B (PCR) Negative (Neg) 08/22/24 18:33 RSV (RT-PCR) Negative (Neg) 08/22/24 18:33 Impressions Chest X-Ray 08/22/24 16:50 HISTORY: Chest pain. TECHNIQUE: Portable AP radiograph of the chest. COMPARISON: Chest radiograph dated 07/20/2024 FINDINGS: Underpenetration limits evaluation of the costophrenic angles. No definite focal consolidation. No pneumothorax or obvious effusion. Normal heart size. Left-sided aortic arch. Midline trachea. No acute osseous abnormality. The included upper abdomen is unremarkable. IMPRESSION: No acute cardiopulmonary findings within the limitations of underpenetration. Electronically signed by Victoriano Lo 08-22-2024 5:21 PM
[2024-08-24 20:34] LABS: Basophils # (auto) 0.04 K/uL (0.00-0.20); Basophils % (auto) 0.4 %; Eosinophils # (auto) 0.17 K/uL (0.00-0.50); Eosinophils % (auto) 1.5 %; Hematocrit (blood only) 37.5 % (37.0-47.0); Hemoglobin 12.1 g/dl (12.0-16.0); Immature Granulocytes # (auto) 0.04 K/uL (0.01-0.20); Immature Granulocytes % (auto) 0.4 %; Lymphocytes # (auto) 2.83 K/uL (1.20-3.40); Mean Corpuscular Hemoglobin 28.5 pg (25.0-34.0); Mean Corpuscular Hgb Conc 32.3 g/dL (32.0-36.0); Mean Corpuscular Volume 88.2 fL (80.0-100.0); Mean Platelet Volume 9.8 fL (9.4-12.4); Monocytes # (auto) 0.43 K/uL (0.11-0.59); Monocytes % (auto) 3.8 %; Neutrophils # (auto) 7.79 K/uL (1.40-6.50); Neutrophils % (auto) 68.9 %; Platelet Count 330 K/uL (130-400); RDW Coefficient of Variation 13.7 % (11.5-14.5); RDW Standard Deviation 43.8 fL (36.4-46.3); Red Blood Count 4.25 M/uL (4.20-5.40)
[2024-08-24 20:40] LABS: Partial Thromboplastin Ratio 1.1; Partial Thromboplastin Time 30 Seconds (21-31)
[2024-08-24 20:53] LABS: Alanine Aminotransferase 15 U/L (7-52); Albumin Globulin Ratio 1.3 (0.9-2); Albumin Level 4.3 gm/dl (3.4-5.0); Alkaline Phosphatase 119 U/L (34-104); Anion Gap 7 (3-11); Aspartate Aminotransferase 15 U/L (13-39); BUN Creatinine Ratio 23.6 (10-20); Bilirubin,Total 0.3 mg/dl (0.2-1.0); Blood Urea Nitrogen 17 mg/dl (6-23); Calcium 9.4 mg/dl (8.6-10.3); Carbon Dioxide 24 mmol/L (21-32); Chloride 105 mmol/L (98-107); Creatinine Clr Calc Pharmacy 133.5 ml/min; Globulin 3.3 gm/dl (2.5-4.0); Glucose 107 mg/dl (70-99(Fasting)); Lipase 20 U/L (11-82); Potassium 3.7 mmol/L (3.5-5.1); Sodium 136 mmol/L (136-145); Total Protein 7.6 gm/dl (6.0-8.3)
[2024-08-24 20:58] LABS: Troponin I High Sensitivity < 2.3 pg/ml (0-14)
[2024-08-24 21:01] LABS: Appearance Urine Clear (Clear); Bacteria Urine Automated None Seen (None Seen); Bilirubin Urine Negative (Negative); Blood Urine Trace (Negative); Cast Urine Automated 0-2 /lpf (0-2); Color Urine Yellow; Glucose Urine UA Negative (Negative); Ketones Urine Negative (Negative); Leukocyte Esterase Urine Negative (Negative); Nitrite Urine Negative (Negative); Protein Urine Negative (Negative); Specific Gravity Urine 1.015 (1.000-1.030); Urobilinogen Urine Negative (Negative); WBC Urine Automated 0-5 /hpf (0-5); pH Urine 6.5 (4.5-7.5)
--- NOTE | 2024-08-24 21:27 | Hospitalist Consultation ---
Date of Consultation August 24, 2024 Assessment & Plan (1) Pain: Final Assessment and Recommendations as follows : Pain Patient presenting with headache, chest pain, abdominal complaints of 6 weeks duration. History fibromyalgia/somatoform disorder as per outpatient records. Chest pain relieved by nitroglycerin Rule out ACS given patient risk factors Worsening headache symptoms with dizziness and tinnitus symptoms History of pseudotumor cerebri as per records. Unremarkable brain MRI last month ? Mnire disease given associated ENT symptoms Worsening abdominal pain with intermittent LGIB diarrhea Stool C. difficile negative Patient currently hemodynamically stable inappropriate sinus tachycardia prolonged QTc hyperlipidemia, not on statin Rx history lower extremity DVT status post anticoagulation asthma HUGO, CPAP intolerant; repeat sleep study recommended by PCP as per records hx GERD, currently not on maintenance medications HLA B27 positivity as per records, no ankylosing spondylitis as per outpatient [facility] rheumatology evaluation from 2021 prediabetes, outpatient hemoglobin A1c of 5.5 this month past tobacco abuse Recommend MHU discharge and admission to PCU given need for evaluation of multiple somatic complaints Follow troponin Stress echo in a.m. if a.m. troponin within normal limits CT head Re: Worsening headache Neurology follow-up evaluation for headache symptoms (patient known to [facility] Outpatient ENT eval for bilateral tinnitus Stool CS CT abdomen pelvis re: abdominal pain with LGIB Further management contingent on above workup results Discussed case with Dr. Shannon who is agreeable to plan of care. Text document was generated using [employer] voice recognition software. It may contain grammatical or spelling errors. Kindly contact undersigned for clarification of any documentation item in question. History of Present Illness Reason for Consultation: Headache, chest pain, abdominal pain Requesting Physician: Dr. Shannon Attending Physician: Benjamin Shannon MD History of Present Illness PCP : Dr. Segovia History obtained from patient and records. Medical history significant for idiopathic intracranial hypertension, inappropriate sinus tachycardia, prolonged QTc, hyperlipidemia, history lower extremity DVT status post anticoagulation, asthma, HUGO/CPAP intolerance, GERD, fibromyalgia, HLA B27 positivity, prediabetes as per patient, fibromyalgia, somatoform disorder as per records, past tobacco abuse. Recent confinement last month worsening headache symptoms with blurred vision attributed to pseudotumor cerebri. Headache symptoms worse with Diamox Rx from neurology. Diamox eventually discontinued outpatient as per patient account. Worsening headaches associated with bilateral tinnitus and dizziness symptoms. No hearing loss or discharge. Patient also presenting with 6 weeks history of chest pain going to the left side with some SOB, no cough symptoms. Outpatient PE study done 2 weeks ago at [facility] ER negative for clot. Outpatient stress test contemplated by PCP. Patient also complaining of achy abdominal pain with diarrhea symptoms present since confinement last month at [facility]. No fever, no chills. Stools intermittently blood streaked which he attributes to possible anal fissure. Patient admitted under Psychiatry service 2 days ago as a voluntary commitment for anxiety depression symptoms. Patient denies suicidality. Worsening headache, chest pain, abdominal pain since U confinement as per patient. Chest pain relieved by nitroglycerin intake tonight. 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 Allergies Allergy/AdvReac Type Severity Reaction Status Date / Time amoxicillin Allergy Severe ANAPHYLAXIS Verified 08/13/24 14:38 clavulanic acid Allergy Severe ANAPHYLAXIS Verified 08/13/24 14:38 doxycycline Allergy Intermediate Rash Verified 08/13/24 14:38 fish derived Allergy Intermediate Hives Verified 08/13/24 14:38 metronidazole Allergy Intermediate rash Verified 08/13/24 14:38 sulfamethoxazole Allergy Intermediate tongue Verified 08/13/24 14:38 [From Bactrim] swelling trimethoprim [From Bactrim] Allergy Intermediate tongue Verified 08/13/24 14:38 swelling coffee (Coffea arabica) Allergy Unknown per Verified 08/13/24 14:38 allergy testing Penicillins Allergy Unknown per Verified 08/13/24 14:38 allergy testing Home Medications Medication Instructions Recorded Confirmed Type loratadine 10 mg tablet (Claritin) 10 mg PO HS Congestion 03/21/20 08/22/24 History escitalopram oxalate 10 mg tablet 5 mg PO PM 08/02/24 08/22/24 History magnesium glycinate 200 mg PO HS 08/22/24 08/22/24 History acetazolamide 250 mg tablet 250 mg PO BID 08/23/24 08/23/24 History aripiprazole 5 mg tablet (Abilify) 5 mg PO QAM #30 tabs 08/24/24 Rx melatonin 3 mg tablet 4.5 mg (1.5 x 3 mg) PO HS #45 tabs 08/24/24 Rx Patient History Medical History Abnormal EEG Ankylosing spondylitis Anxiety and depression Change in vision Chest pain Chest pain COVID-19 Degenerative disc disease Dizziness DVT (deep venous thrombosis) Eustachian tube dysfunction Fatigue GERD (gastroesophageal reflux disease) Headache Heart palpitations High cholesterol History of bradycardia History of bulimia History of pre-eclampsia Insomnia Iron deficiency anemia Migraine Morbid obesity with BMI of 40.0-44.9, adult Seasonal allergies Thoracic disc disease Vitamin B12 deficiency Vitamin D deficiency Surgical History History of cardiac cath 06/2015 @ [facility] [place]--d/t chest pain, normal no stents History of cholecystectomy History of esophagogastroduodenoscopy (EGD) History of wisdom tooth extraction Family History (System 10/17/22 @ 08:26 by Sophia Benavidez) Father Hypertension Mother Diabetes Grandfather (Maternal) Diabetes Coronary heart disease Myocardial infarction Congestive heart failure Colorectal cancer Grandfather (Paternal) Diabetes Coronary heart disease Myocardial infarction, Onset Age: 50 Grandmother (Paternal) Pulmonary emphysema Sick sinus syndrome Diabetes Pacemaker Grandmother (Maternal) Family history of diabetes mellitus Aunt Pulmonary emphysema Family/Other Myocardial infarction, Onset Age: 37 Coronary heart disease Uncle Stroke Other Asthma Lymphoma No family history of adverse response to anesthesia Denies family history of Ovarian cancer Prostate cancer Breast cancer Social History (System 10/17/22 @ 08:26 by Sophia Benavidez) Smoking Status: Former smoker Tobacco Type: Cigarettes Second Hand Exposure: No; Do You Dip or Chew Tobacco: No; Hx Alcohol Use: Yes Alcohol type: beer Hx Substance Use: No Preferred Language: Spanish Communication Ability: Effective Communication Tools: Other Visual Impairment: No Limitations Hearing Ability: Normal 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 Beliefs That Will Affect Care: None marital status: Current Living Situation: Family and Significant Other Current Living Situation Comment: Lives with and daughter current occupational status: unemployed How many Children do You have: 1 Feels Safe at Home: Yes Childhood Exposure to Second-Hand Smoke: Yes Diet: regular caffeine: No during the past year weight has: remained stable Dental Care, Regularly: Yes Physical Activity Frequency: 5-6 Times per Week Seatbelt Use: never Sunscreen Use: Yes Gender Identity: Female Assistive Devices: Glasses Review of Systems Review of Systems: As per HPI, all other systems reviewed and negative Physical Exam Physical Exam: GENERAL: Comfortable, morbidly obese, no respiratory distress SKIN: Normal color, warm HEENT:pink palpebral conjunctivae, no ptosis, moist buccal mucosa; AD : Patent EAC, intact TM with healed perforation, : patent EAC, no discharge, intact TM NECK : Supple, short neck, no tenderness CHEST : CTA, no tenderness HEART : RRR, no obvious murmurs ABDOMEN: Some distention, minimal epigastric tenderness EXTREMITIES : Minimal LE swelling, no LE tenderness, no other conspicuous def ormities noted NEUROLOGIC : Coherent, no facial asymmetry, gait and stance not assessed Results & Data Results & Data Vital Signs (Past 12 Hours) Vital Signs Temp Pulse Pulse Pulse Resp BP BP 08/24/24 19:49 36.6 C 93 H 16 135/92 08/24/24 13:42 90 105 H 129/90 135/98 Pulse Ox O2 Del Method 08/24/24 19:49 93 Room Air 08/24/24 13:42 Laboratory Results Laboratory Results WBC 11.30 K/ul (4.8-10.8) H 08/24/24 19:59 RBC 4.25 M/uL (4.20-5.40) 08/24/24 19:59 Hgb 12.1 g/dl (12.0-16.0) 08/24/24 19:59 Hct 37.5 % (37.0-47.0) 08/24/24 19:59 MCV 88.2 fL (80.0-100.0) 08/24/24 19:59 MCH 28.5 pg (25.0-34.0) 08/24/24 19:59 MCHC 32.3 g/dL (32.0-36.0) 08/24/24 19:59 RDW Std Deviation 43.8 fL (36.4-46.3) 08/24/24 19:59 RDW Coeff of Yash 13.7 % (11.5-14.5) 08/24/24 19:59 Plt Count 330 K/uL (130-400) 08/24/24 19:59 MPV 9.8 fL (9.4-12.4) 08/24/24 19:59 Immature Gran % (Auto) 0.4 % 08/24/24 19:59 Neut % (Auto) 68.9 % 08/24/24 19:59 Lymph % (Auto) 25.0 % 08/24/24 19:59 [place] % (Auto) 3.8 % 08/24/24 19:59 Eos % (Auto) 1.5 % 08/24/24 19:59 Baso % (Auto) 0.4 % 08/24/24 19:59 Neut # (Auto) 7.79 K/uL (1.40-6.50) H 08/24/24 19:59 Lymph # (Auto) 2.83 K/uL (1.20-3.40) 08/24/24 19:59 [place] # (Auto) 0.43 K/uL (0.11-0.59) 08/24/24 19:59 Eos # (Auto) 0.17 K/uL (0.00-0.50) 08/24/24 19:59 Baso # (Auto) 0.04 K/uL (0.00-0.20) 08/24/24 19:59 Immature Gran # (Auto) 0.04 K/uL (0.01-0.20) 08/24/24 19:59 ESR 52 mm/hr (0-20) H 08/24/24 19:59 APTT 30 Seconds (21-31) 08/24/24 19:59 PTT Ratio 1.1 08/24/24 19:59 D-Dimer 420 ug/L FEU (0-500) 08/22/24 18:35 Sodium 136 mmol/L (136-145) 08/24/24 19:59 Potassium 3.7 mmol/L (3.5-5.1) 08/24/24 19:59 Chloride 105 mmol/L (98-107) 08/24/24 19:59 Carbon Dioxide 24 mmol/L (21-32) 08/24/24 19:59 Anion Gap 7 (3-11) 08/24/24 19:59 BUN 17 mg/dl (6-23) 08/24/24 19:59 Creatinine 0.72 mg/dl (0.6-1.2) 08/24/24 19:59 Est Cr Clr Drug Dosing 133.5 ml/min 08/24/24 19:59 eGFR 111.06 08/24/24 19:59 BUN/Creatinine Ratio 23.6 (10-20) H 08/24/24 19:59 Glucose 107 mg/dl (70-99(Fasting)) H 08/24/24 19:59 Estimat Average Glucose 117 mg/dl 08/24/24 07:36 Hemoglobin A1c 5.7 % (4.5-5.6) H 08/24/24 07:36 Calcium 9.4 mg/dl (8.6-10.3) 08/24/24 19:59 Magnesium 2.0 mg/dl (1.7-2.4) 08/24/24 19:59 Total Bilirubin 0.3 mg/dl (0.2-1.0) 08/24/24 19:59 AST 15 U/L (13-39) 08/24/24 19:59 ALT 15 U/L (7-52) 08/24/24 19:59 Alkaline Phosphatase 119 U/L (34-104) H 08/24/24 19:59 Troponin I High Sens < 2.3 pg/ml (0-14) 08/24/24 19:59 Total Protein 7.6 gm/dl (6.0-8.3) 08/24/24 19:59 Albumin 4.3 gm/dl (3.4-5.0) 08/24/24 19:59 Globulin 3.3 gm/dl (2.5-4.0) 08/24/24 19:59 Albumin/Globulin Ratio 1.3 (0.9-2) 08/24/24 19:59 Triglycerides 163 mg/dl (0-150) H 08/24/24 07:36 Cholesterol 202 mg/dl (0-200) H 08/24/24 07:36 LDL Cholesterol, Calc 133 mg/dl 08/24/24 07:36 VLDL Cholesterol, Calc 33 mg/dl (0-30) H 08/24/24 07:36 HDL Cholesterol 36 mg/dl 08/24/24 07:36 Cholesterol/HDL Ratio 5.6 (0-5) H 08/24/24 07:36 Lipase 20 U/L (11-82) 08/24/24 19:59 Vitamin B12 303 pg/ml (180-914) 08/24/24 07:36 HCG, Qual Negative (Negative) 08/22/24 16:17 Urine Color Yellow 08/24/24 20:30 Urine Appearance Clear (Clear) 08/24/24 20:30 Urine pH 6.5 (4.5-7.5) 08/24/24 20:30 Ur Specific Phenix 1.015 (1.000-1.030) 08/24/24 20:30 Urine Protein Negative (Negative) 08/24/24 20:30 Urine Glucose (UA) Negative (Negative) 08/24/24 20:30 Urine Ketones Negative (Negative) 08/24/24 20:30 Urine Blood Trace (Negative) H 08/24/24 20:30 Urine Nitrite Negative (Negative) 08/24/24 20:30 Urine Bilirubin Negative (Negative) 08/24/24 20:30 Urine Urobilinogen Negative (Negative) 08/24/24 20:30 Ur Leukocyte Esterase Negative (Negative) 08/24/24 20:30 Urine WBC (Auto) 0-5 /hpf (0-5) 08/24/24 20:30 Urine RBC (Auto) 3-5 /hpf (0-2) H 08/24/24 20:30 U Hyaline Cast (Auto) 0-2 /lpf (0-2) 08/24/24 20:30 U Epithel Cells (Auto) 3-5 /hpf (0-2) H 08/24/24 20:30 Urine Bacteria (Auto) None Seen (None Seen) 08/24/24 20:30 Stl C. diff Tox B Gene Negative Cdiff Gene (Neg) 08/23/24 14:00 Urine Opiates Screen Neg (Neg) 08/22/24 16:06 Ur Methadone, Qual Neg (Neg) 08/22/24 16:06 Urine Fentanyl Screen Neg (Neg) 08/22/24 16:06 Urine Barbiturates Neg (Neg) 08/22/24 16:06 Ur Phencyclidine (PCP) Neg (Neg) 08/22/24 16:06 U Amphetamin/Meth Scrn Neg (Neg) 08/22/24 16:06 MDMA (Ecstasy) Screen Neg (Neg) 08/22/24 16:06 U Benzodiazepines Scrn Neg (Neg) 08/22/24 16:06 Ur Cocaine Metabolite Neg (Neg) 08/22/24 16:06 U Marijuana (THC) Screen Neg (Neg) 08/22/24 16:06 Ethyl Alcohol mg/dL < 10.0 mg/dl (<10.0) 08/22/24 17:00 SARS-CoV-2 (PCR) NEGATIVE (Negative) 08/22/24 18:33 Influenza Type A (PCR) Negative (Neg) 08/22/24 18:33 Influenza Type B (PCR) Negative (Neg) 08/22/24 18:33 RSV (RT-PCR) Negative (Neg) 08/22/24 18:33 Impressions Chest X-Ray 08/22/24 16:50 HISTORY: Chest pain. TECHNIQUE: Portable AP radiograph of the chest. COMPARISON: Chest radiograph dated 07/20/2024 FINDINGS: Underpenetration limits evaluation of the costophrenic angles. No definite focal consolidation. No pneumothorax or obvious effusion. Normal heart size. Left-sided aortic arch. Midline trachea. No acute osseous abnormality. The included upper abdomen is unremarkable. IMPRESSION: No acute cardiopulmonary findings within the limitations of underpenetration. Electronically signed by Victoriano Lo 08-22-2024 5:21 PM Diagnostic Findings EKG as per my interpretation :Rate 90, NSR, normal axis, LVH, nonspecific T wave abnormalities
[2024-08-24] MEDS: NITROGLYCERIN SL 0.4 MG/TAB TAB SL STA (21:40)
[2024-08-24 22:33] LABS: C Reactive Protein 1.89 mg/dl (0-0.5)
[2024-08-24] MEDS ORDERED: POTASSIUM CHLORIDE CRTAB 20 MEQ TABCR PO STA (22:34)
[2024-08-24 22:36] VITALS: PULSE 81
--- NOTE | 2024-08-24 23:16 | Electrocardiogram Report ---
Test Reason : Blood Pressure : */* mmHG Vent. Rate : 75 BPM Atrial Rate : 75 BPM P-R Int : 164 ms QRS Dur : 76 ms QT Int : 384 ms P-R-T Axes : 28 25 41 degrees QTcB Int : 428 ms Normal sinus rhythm Normal ECG When compared with ECG of 22-Aug-2024 16:05, No significant change Confirmed by Darryl Fernandez ([id number]) on 08/24/2024 11:15:55 PM Referred By: REFERRED SELF Confirmed By: Darryl Fernandez
--- NOTE | 2024-08-25 06:13 | Electrocardiogram Report ---
Test Reason : Blood Pressure : */* mmHG Vent. Rate : 92 BPM Atrial Rate : 92 BPM P-R Int : 170 ms QRS Dur : 80 ms QT Int : 384 ms P-R-T Axes : 11 -6 15 degrees QTcB Int : 475 ms Normal sinus rhythm Moderate voltage criteria for LVH, may be normal variant Cannot rule out Inferior infarct , age undetermined Abnormal ECG When compared with ECG of 24-Aug-2024 12:49, QT has lengthened Confirmed by Darryl Fernandez ([id number]) on 08/25/2024 6:12:44 AM Referred By: REFERRED SELF Confirmed By: Darryl Fernandez
[2024-08-25] MEDS ORDERED: ARIPiprazole 5 MG TAB PO SCH (09:00)
== END 2024-08-24 22:41 | disposition short-term general hospital (02) | DRG 885 ==
LOC: ED 15:52 → 3S 21:22

== ENCOUNTER 2024-08-24 22:42 | Observation (INO) ==
--- NOTE | 2024-08-24 22:50 | History & Physical Report ---
Date of Service August 24, 2024 Assessment & Plan (1) Pain: Plan: Patient presenting with headache, chest pain, abdominal complaints of 6 weeks duration. History fibromyalgia/somatoform disorder as per outpatient records. Chest pain relieved by nitroglycerin Rule out ACS given patient risk factors Worsening headache symptoms with dizziness and tinnitus symptoms History of pseudotumor cerebri as per records. Unremarkable brain MRI last month ? Mnire disease given associated ENT symptoms Worsening abdominal pain with intermittent LGIB diarrhea Stool C. difficile negative Patient currently hemodynamically stable inappropriate sinus tachycardia prolonged QTc hyperlipidemia, not on statin Rx history lower extremity DVT status post anticoagulation asthma HUGO, CPAP intolerant; repeat sleep study recommended by PCP as per records hx GERD, currently not on maintenance medications HLA B27 positivity as per records, no ankylosing spondylitis as per [place] [facility] prediabetes, outpatient hemoglobin A1c of 5.5 this month past tobacco abuse OBS Admit to PCU Follow troponin Stress echo in a.m. if a.m. troponin within normal limits CT head Re: Worsening headache Neurology follow-up evaluation for headache symptoms (patient known to [facility] Outpatient ENT eval for bilateral tinnitus Stool CS CT abdomen pelvis re: abdominal pain with LGIB Further management contingent on above workup results Psych consult re: anxiety/mood disorder follow-up on the floor DVT prophylaxis. SCDs re: LGIB Full code Text document was generated using Searchles voice recognition software. It may contain grammatical or spelling errors. Kindly contact undersigned for clarification of any documentation item in question. Admission and Anticipated Discharge Date Admission Date: August 24, 2024 History of Present Illness Chief Complaint: Worsening chest pain, abdominal pain, headache Primary Care Provider: Ludy Santiago MD History obtained from patient and records. Medical history significant for idiopathic intracranial hypertension, inappropriate sinus tachycardia, prolonged QTc, hyperlipidemia, history lower extremity DVT status post anticoagulation, asthma, HUGO/CPAP intolerance, GERD, fibromyalgia, HLA B27 positivity, prediabetes as per patient, fibromyalgia, somatoform disorder as per records, past tobacco abuse. Recent confinement last month worsening headache symptoms with blurred vision attributed to pseudotumor cerebri. Headache symptoms worse with Diamox Rx from neurology. Diamox eventually discontinued outpatient as per patient account. Worsening headaches associated with bilateral tinnitus and dizziness symptoms. No hearing loss or discharge. Patient also presenting with 6 weeks history of chest pain going to the left side with some SOB, no cough symptoms. Outpatient PE study done 2 weeks ago at [facility] [address] ER negative for clot. Outpatient stress test contemplated by PCP. Patient also complaining of achy abdominal pain with diarrhea symptoms present since confinement last month at [facility]. No fever, no chills. Stools intermittently blood streaked which he attributes to possible anal fissure. Patient admitted under Psychiatry service 2 days ago as a voluntary commitment for anxiety depression symptoms. Patient denies suicidality. Worsening headache, chest pain, abdominal pain since U confinement as per patient. Chest pain relieved by nitroglycerin intake tonight. 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 Allergies Allergy/AdvReac Type Severity Reaction Status Date / Time amoxicillin Allergy Severe ANAPHYLAXIS Verified 08/13/24 14:38 clavulanic acid Allergy Severe ANAPHYLAXIS Verified 08/13/24 14:38 doxycycline Allergy Intermediate Rash Verified 08/13/24 14:38 fish derived Allergy Intermediate Hives Verified 08/13/24 14:38 metronidazole Allergy Intermediate rash Verified 08/13/24 14:38 sulfamethoxazole Allergy Intermediate tongue Verified 08/13/24 14:38 [From Bactrim] swelling trimethoprim [From Bactrim] Allergy Intermediate tongue Verified 08/13/24 14:38 swelling coffee (Coffea arabica) Allergy Unknown per Verified 08/13/24 14:38 allergy testing Penicillins Allergy Unknown per Verified 08/13/24 14:38 allergy testing Home Medications Medication Instructions Recorded Confirmed Type loratadine 10 mg tablet (Claritin) 10 mg PO HS Congestion 03/21/20 08/22/24 His tory escitalopram oxalate 10 mg tablet 5 mg PO PM 08/02/24 08/22/24 History magnesium glycinate 200 mg PO HS 08/22/24 08/22/24 History acetazolamide 250 mg tablet 250 mg PO BID 08/23/24 08/23/24 History aripiprazole 5 mg tablet (Abilify) 5 mg PO QAM #30 tabs 08/24/24 Rx melatonin 3 mg tablet 4.5 mg (1.5 x 3 mg) PO HS #45 tabs 08/24/24 Rx Past Med/Surg History Problem List (Updated 08/25/24 @ 00:03 by Background Daemon) Pain Illness anxiety disorder Major depressive disorder, recurrent episode with anxious distress Sinus pressure (Acute) Abdominal pain (Acute) Depression (Acute) Anxiety (Acute) Dizziness (Acute) Chest pain (Acute) Suicidal ideation (Acute) Cervical radiculopathy Dizziness (Acute) Headache (Acute) Vivid dream Somatic symptom disorder Chest pain (Acute) Pseudotumor cerebri (Acute) Dermatomyositis Small fiber neuropathy Headache Hypokalemia Persistent postural-perceptual dizziness Idiopathic intracranial hypertension Sinus tachycardia Palpitations Chest pain (Acute) POTS (postural orthostatic tachycardia syndrome) (Acute) Epigastric abdominal pain (Acute) Weakness (Acute) Change in mental status POTS (postural orthostatic tachycardia syndrome) (Acute) DVT (deep vein thrombosis) in Seizure-like activity Paresthesia Severe uncontrolled hypertension Vision changes High cholesterol GERD (gastroesophageal reflux disease) Anxiety and depression History of bulimia Insomnia Vitamin D deficiency Seasonal allergies Vitamin B12 deficiency Migraine Ankylosing spondylitis Degenerative disc disease Exercise-induced asthma Morbid obesity Thoracic disc disease Dysphagia Prediabetes Eustachian tube dysfunction Near syncope Inappropriate sinus tachycardia Abnormal EEG Hypersomnia Dietary counseling and surveillance Metabolic syndrome Pericarditis Medical History Abnormal EEG Ankylosing spondylitis Anxiety and depression Change in vision Chest pain Chest pain COVID-19 Degenerative disc disease Dizziness DVT (deep venous thrombosis) Eustachian tube dysfunction Fatigue GERD (gastroesophageal reflux disease) Headache Heart palpitations High cholesterol History of bradycardia History of bulimia History of pre-eclampsia Insomnia Iron deficiency anemia Migraine Morbid obesity with BMI of 40.0-44.9, adult Seasonal allergies Thoracic disc disease Vitamin B12 deficiency Vitamin D deficiency Surgical History History of cardiac cath 06/2015 @ [facility] [place]--d/t chest pain, normal no stents History of cholecystectomy History of esophagogastroduodenoscopy (EGD) History of wisdom tooth extraction Family History (System 10/17/22 @ 08:26 by Sophia Benavidez) Father Hypertension Mother Diabetes Grandfather (Maternal) Diabetes Coronary heart disease Myocardial infarction Congestive heart failure Colorectal cancer Grandfather (Paternal) Diabetes Coronary heart disease Myocardial infarction, Onset Age: 50 Grandmother (Paternal) Pulmonary emphysema Sick sinus syndrome Diabetes Pacemaker Grandmother (Maternal) Family history of diabetes mellitus Aunt Pulmonary emphysema Family/Other Myocardial infarction, Onset Age: 37 Coronary heart disease Uncle Stroke Other Asthma Lymphoma No family history of adverse response to anesthesia Denies family history of Ovarian cancer Prostate cancer Breast cancer Social History (System 10/17/22 @ 08:26 by oSphia Benavidez) Smoking Status: Former smoker Tobacco Type: Cigarettes Second Hand Exposure: No; Do You Dip or Chew Tobacco: No; Hx Alcohol Use: Yes Alcohol type: beer Hx Substance Use: No Preferred Language: Indonesian Communication Ability: Effective Communication Tools: Other Visual Impairment: No Limitations Hearing Ability: Normal Defective Cigarette Slitter Required: No Beliefs That Will Affect Care: None marital status: Current Living Situation: Family and Significant Other Current Living Situation Comment: Lives with and daughter current occupational status: unemployed How many Children do You have: 1 Feels Safe at Home: Yes Childhood Exposure to Second-Hand Smoke: Yes Diet: regular caffeine: No during the past year weight has: remained stable Dental Care, Regularly: Yes Physical Activity Frequency: 5-6 Times per Week Seatbelt Use: never Sunscreen Use: Yes Gender Identity: Female Assistive Devices: Glasses Review of Systems Review of Systems: As per HPI, all other systems reviewed and negative Physical Exam Physical Exam: GENERAL: Comfortable, morbidly obese, no respiratory distress SKIN: Normal color, warm HEENT:pink palpebral conjunctivae, no ptosis, moist buccal mucosa; AD : Patent EAC, intact TM with healed perforation, : patent EAC, no discharge, intact TM NECK : Supple, short neck, no tenderness CHEST : CTA, no tenderness HEART : RRR, no obvious murmurs ABDOMEN: Some distention, minimal epigastric tenderness EXTREMITIES : Minimal LE swelling, no LE tenderness, no other conspicuous deformities noted NEUROLOGIC : Coherent, no facial asymmetry, gait and stance not assessed Results & Data Results & Data Vital Signs (Past 12 Hours) Vital Signs Temp Pulse Resp BP Pulse Ox O2 Del Method 36.3 C L 86 20 127/81 96 Room Air 08/24/24 23:38 08/24/24 23:38 08/24/24 23:38 08/24/24 23:38 08/24/24 23:38 08/24/24 23:38 Laboratory Results WBC 11.30 K/ul (4.8-10.8) H 08/24/24 19:59 RBC 4.25 M/uL (4.20-5.40) 08/24/24 19:59 Hgb 12.1 g/dl (12.0-16.0) 08/24/24 19:59 Hct 37.5 % (37.0-47.0) 08/24/24 19:59 MCV 88.2 fL (80.0-100.0) 08/24/24 19: MCH 28.5 pg (25.0-34.0) 08/24/24 19: MCHC 32.3 g/dL (32.0-36.0) 08/24/24 19: RDW Std Deviation 43.8 fL (36.4-46.3) 08/24/24: RDW Coeff of Yash 13.7 % (11.5-14.5) 08/24/24: Plt Count 330 K/uL (130-400) 08/24/24: MPV 9.8 fL (9.4-12.4) 08/24/24 19:59 Immature Gran % (Auto) 0.4 % 08/24/24 19:59 Neut % (Auto) 68.9 % 08/24/24:59 Lymph % (Auto) 25.0 % 08/24/24 19:59 Plumas % (Auto) 3.8 % 08/24/24 19:59 Eos % (Auto) 1.5 % 08/24/24:59 Baso % (Auto) 0.4 % 08/24/24:59 Neut # (Auto) 7.79 K/uL (1.40-6.50) H 08/24/24 19:59 Lymph # (Auto) 2.83 K/uL (1.20-3.40) 08/24/24 19:59 Plumas # (Auto) 0.43 K/uL (0.11-0.59) 08/24/24 19: Eos # (Auto) 0.17 K/uL (0.00-0.50) 08/24/24 19:59 Baso # (Auto) 0.04 K/uL (0.00-0.20) 08/24/24 19:59 Immature Gran # (Auto) 0.04 K/uL (0.01-0.20) 08/24/24 19:59 ESR 52 mm/hr (0-20) H 08/24/24 19:59 APTT 30 Seconds (21-31) 08/24/24 19:59 PTT Ratio 1.1 08/24/24 19:59 D-Dimer 420 ug/L FEU (0-500) 08/22/24 18:35 Sodium 136 mmol/L (136-145) 08/24/24 19:59 Potassium 3.7 mmol/L (3.5-5.1) 08/24/24 19:59 Chloride 105 mmol/L (98-107) 08/24/24 19:59 Carbon Dioxide 24 mmol/L (21-32) 08/24/24 19:59 Anion Gap 7 (3-11) 08/24/24 19:59 BUN 17 mg/dl (6-23) 08/24/24 19:59 Creatinine 0.72 mg/dl (0.6-1.2) 08/24/24 19:59 Est Cr Clr Drug Dosing 133.5 ml/min 08/24/24 19:59 eGFR 111.06 08/24/24 19:59 BUN/Creatinine Ratio 23.6 (10-20) H 08/24/24 19:59 Glucose 107 mg/dl (70-99(Fasting)) H 08/24/24 19:59 Estimat Average Glucose 117 mg/dl 08/24/24 07:36 Hemoglobin A1c 5.7 % (4.5-5.6) H 08/24/24 07:36 Calcium 9.4 mg/dl (8.6-10.3) 08/24/24 19:59 Magnesium 2.0 mg/dl (1.7-2.4) 08/24/24 19:59 Total Bilirubin 0.3 mg/dl (0.2-1.0) 08/24/24 19:59 AST 15 U/L (13-39) 08/24/24 19:59 ALT 15 U/L (7-52) 08/24/24 19:59 Alkaline Phosphatase 119 U/L (34-104) H 08/24/24 19:59 Troponin I High Sens < 2.3 pg/ml (0-14) 08/24/24 19:59 Total Protein 7.6 gm/dl (6.0-8.3) 08/24/24 19:59 Albumin 4.3 gm/dl (3.4-5.0) 08/24/24 19:59 Globulin 3.3 gm/dl (2.5-4.0) 08/24/24 19:59 Albumin/Globulin Ratio 1.3 (0.9-2) 08/24/24 19:59 Triglycerides 163 mg/dl (0-150) H 08/24/24 07:36 Cholesterol 202 mg/dl (0-200) H 08/24/24 07:36 LDL Cholesterol, Calc 133 mg/dl 08/24/24 07:36 VLDL Cholesterol, Calc 33 mg/dl (0-30) H 08/24/24 07:36 HDL Cholesterol 36 mg/dl 08/24/24 07:36 Cholesterol/HDL Ratio 5.6 (0-5) H 08/24/24 07:36 Lipase 20 U/L (11-82) 08/24/24 19:59 Vitamin B12 303 pg/ml (180-914) 08/24/24 07:36 HCG, Qual Negative (Negative) 08/22/24 16:17 Urine Color Yellow 08/24/24 20:30 Urine Appearance Clear (Clear) 08/24/24 20:30 Urine pH 6.5 (4.5-7.5) 08/24/24 20:30 Ur Specific [place] 1.015 (1.000-1.030) 08/24/24 20:30 Urine Protein Negative (Negative) 08/24/24 20:30 Urine Glucose (UA) Negative (Negative) 08/24/24 20:30 Urine Ketones Negative (Negative) 08/24/24 20:30 Urine Blood Trace (Negative) H 08/24/24 20:30 Urine Nitrite Negative (Negative) 08/24/24 20:30 Urine Bilirubin Negative (Negative) 08/24/24 20:30 Urine Urobilinogen Negative (Negative) 08/24/24 20:30 Ur Leukocyte Esterase Negative (Negative) 08/24/24 20:30 Urine WBC (Auto) 0-5 /hpf (0-5) 08/24/24 20:30 Urine RBC (Auto) 3-5 /hpf (0-2) H 08/24/24 20:30 U Hyaline Cast (Auto) 0-2 /lpf (0-2) 08/24/24 20:30 U Epithel Cells (Auto) 3-5 /hpf (0-2) H 08/24/24 20:30 Urine Bacteria (Auto) None Seen (None Seen) 08/24/24 20:30 Stl C. diff Tox B Gene Negative Cdiff Gene (Neg) 08/23/24 14:00 Urine Opiates Screen Neg (Neg) 08/22/24 16:06 Ur Methadone, Qual Neg (Neg) 08/22/24 16:06 Urine Fentanyl Screen Neg (Neg) 08/22/24 16:06 Urine Barbiturates Neg (Neg) 08/22/24 16:06 Ur Phencyclidine (PCP) Neg (Neg) 08/22/24 16:06 U Amphetamin/Meth Scrn Neg (Neg) 08/22/24 16:06 MDMA (Ecstasy) Screen Neg (Neg) 08/22/24 16:06 U Benzodiazepines Scrn Neg (Neg) 08/22/24 16:06 Ur Cocaine Metabolite Neg (Neg) 08/22/24 16:06 U Marijuana (THC) Screen Neg (Neg) 08/22/24 16:06 Ethyl Alcohol mg/dL < 10.0 mg/dl (<10.0) 08/22/24 17:00 SARS-CoV-2 (PCR) NEGATIVE (Negative) 08/22/24 18:33 Influenza Type A (PCR) Negative (Neg) 08/22/24 18:33 Influenza Type B (PCR) Negative (Neg) 08/22/24 18:33 RSV (RT-PCR) Negative (Neg) 08/22/24 18:33 Diagnostic Findings EKG as per my interpretation :Rate 90, NSR, normal axis, LVH, nonspecific T wave abnormalities
[2024-08-24] MEDS ORDERED: NITROGLYCERIN SL 0.4 MG/TAB TAB SL PRN (22:51)
[2024-08-24] MEDS ORDERED: ACETAMINOPHEN 325 MG TAB PO PRN (22:51)
[2024-08-24] MEDS ORDERED: MoRPHine SULFATE 4 MG/ML 1 ML CARP\\VIAL IV PRN (22:54)
[2024-08-24] MEDS ORDERED: oxyCODONE HCL IR 5 MG TAB (IMMEDIATE RELEASE) PO PRN (22:54)
[2024-08-24] MEDS ORDERED: PROMETHAZINE 12.5 MG/50.5 ML BAG IV PRN (22:54)
[2024-08-24] MEDS: SODIUM CHLOR 0.45% + 20MEQ KCL 20 MEQ/1,000 ML BAG IV ONE (23:33)
[2024-08-25] MEDS: OPTIRAY 320 100ml IV ONE (01:01)
--- OUTSIDE RECORDS SUMMARY | 2024-08-25 01:40 | External Medical Summary ---
Author Name Unknown Address Unknown Organization [id number]:LABORATORY [facility] [place] - [address] [place] [address] Laboratory Report Ordering Provider Test Date Status JERRY ALMANZAR 08/21/2024 11:49:09 Final Observation Date Value Abnormality Reference (Units ) Status MYCODE SPECIMEN-SST 08/21/2024 11:49:09 Freezing of extracted DNA, whole blood and/or serum. Final Performing Location LABORATORY [facility] [place] - [address] [place] [address]
--- OUTSIDE RECORDS SUMMARY | 2024-08-25 01:40 | External Medical Summary ---
Author Name Unknown Address Unknown Organization [id number]:LABORATORY [facility] [place] [address] [facility] [address] Laboratory Report Ordering Provider Test Date Status JERRY ALMANZAR 08/21/2024 11:49:09 Final Observation Date Value Abnormality Reference (Units ) Status MYCODE SPECIMEN-LAV 08/21/2024 11:49:09 Freezing of extracted DNA, whole blood and/or serum. Final Performing Location LABORATORY [facility] [place] [address] [place] [address]
--- OUTSIDE RECORDS SUMMARY | 2024-08-25 01:40 | External Medical Summary ---
Author Name Unknown Address Unknown Organization [id number]:LABORATORY [facility] [place] - [address] [place] [address] Laboratory Report Ordering Provider Test Date Status JERRY ALMANZAR 08/21/2024 11:49:09 Final Observation Date Value Abnormality Reference (Units ) Status MYCODE SPECIMEN-SST 08/21/2024 11:49:09 Freezing of extracted DNA, whole blood and/or serum. Final Performing Location LABORATORY [facility] [place] - [address] [place] [address]
--- OUTSIDE RECORDS SUMMARY | 2024-08-25 01:40 | External Medical Summary ---
Author Name Unknown Address Unknown Organization K01:LABORATORY [facility] - [address] [facility] [address] Laboratory Report Ordering Provider Test Date Status GERARDO REYNOSO NURA 08/21/2024 11:55:04 Final Drugs that require complianc e testing:

Opioids:
None

Benzodiazepines
Alprazolam: Quantity 0.25 Date/Time of last Dose 08/20/24

Cutoff Concentrations:
Drug Level
Amphetamines 500 ng/mL
Benzodiazepines 100 ng/mL
Cannabinoids 50 ng/mL
Cocaine Metabolite 150 ng/mL
Fentanyl 1 ng/mL
Hydrocodone / Hydromorphone 300 ng/mL
Methadone Metabolite 100 ng/mL
Morphine / Codeine 300 ng/mL
Oxycodone / Oxymorphone 100 ng/mL

Screening results are presumptive and can only be used for medical purposes. Confirmatory testing is available upon request. Observation Date Value Abnormality Reference (Units) Status Amphetamines, Urine screen 08/21/2024 11:55:04 Negative Negative Final Benzodiazepines, Urine screen 08/21/2024 11:55:04 Refer to confirmation results Abnormal Negative Final Cannabinoids, Urine screen 08/21/2024 11:55:04 Negative Negative Final Cocaine Metabolite, Urine screen 08/21/2024 11:55:04 Negative Negative Final fentaNYL [Presence] in Urine by Screen method 08/21/2024 11:55:04 Negative Negative Final HYDROcodone [Presence] in Urine by Screen method 08/21/2024 11:55:04 Negative Negative Final 6-Aeylowlpwx-4,5-Dime thyl-3,3-Diphenylpyrr olidine (EDDP) [Presence] in Urine 08/21/2024 11:55:04 Negative Negative Final Opiates, Urine screen 08/21/2024 11:55:04 Negative Negative Final oxyCODONE [Presence] in Urine by Screen method 08/21/2024 11:55:04 Negative Negative Final FORENSIC VALID INTERPRETATION 08/21/2024 11:55:04 Normal Final Creatinine, Urine 08/21/2024 11:55:04 199 (mg/dL) Final Performing Location [place] [facility] [place] [address] [facility] [address]
--- NOTE | 2024-08-25 02:04 | CT Scan Report ---
EXAM: CT abd pelvis IV con only CLINICAL HISTORY: abd pain, lgib TECHNIQUE: Contiguous axial images were obtained from the level of the diaphragm to the pubic symphysis with intravenous contrast. Coronal and sagittal reconstructions were likewise performed and indicated to increase the sensitivity for detecting clinically relevant pathology. If IV contrast material had not been administered, the likelihood of detecting abnormalities relevant to the patient's condition would have been substantially decreased. CT scan was performed according to ALARA (as low as reasonable achievable). COMPARISON: 29 August 2021 FINDINGS: The visualized lung bases are clear. The liver is normal in size and attenuation. No focal liver lesions are seen. There is no intra or extrahepatic biliary ductal dilatation. Hepatic vasculature is patent. Status post-cholecystectomy. The spleen, pancreas, and adrenal glands are unremarkable. The kidneys are normal in size and attenuation. There is no hydronephrosis or perinephric fat stranding. No renal calculi or renal masses are identified. The ureters are normal in caliber and no ureteral calculi are seen. The bladder is normal in contour. Pelvic viscera are unremarkable. No focal or diffuse bowel wall thickening or evidence of bowel obstruction is identified. The appendix is visualized in the right lower quadrant and appears within normal limits. Abdominal and pelvic vasculature is patent. No adenopathy or fluid collections are seen. No aggressive appearing osseous lesions are identified. IMPRESSION: 1. Status post-cholecystectomy. 2. No other new interval abnormality since prior study. Electronically signed by Tristin Edward 08-25-2024 02:04 AM
--- NOTE | 2024-08-25 02:13 | CT Scan Report ---
EXAM: CT head/brain wo con CLINICAL HISTORY: worsening walters TECHNIQUE: Multiple axial images are obtained from the skull base to the vertex without contrast. CT scan was performed according to ALARA (as low as reasonable achievable). COMPARISON: 12 October 2021. FINDINGS: The brain shows normal morphology, attenuation, and volume for age. No evidence of space occupying lesion, hemorrhage, edema, mass effect, midline shift, extra axial collection, or hydrocephalus is noted. Ventricles, sulci, and basal cisterns are symmetric and normal in size and configuration. The beltran-white matter differentiation is preserved. Visualized paranasal sinuses and mastoid air cells are well aerated. Orbital contents are within normal limits. Bony structures are intact. IMPRESSION: 1. No evidence of acute intracranial abnormality is demonstrated No other new interval abnormality since prior study. Electronically signed by Tristin Edward 08-25-2024 02:13 AM
[2024-08-25] MEDS ORDERED: LOPERAMIDE HCL 2 MG CAP PO PRN (03:38)
[2024-08-25] MEDS: Patient's HEIGHT &/or WEIGHT Needed STA (03:43)
[2024-08-25 06:05] LABS: Basophils # (auto) 0.03 K/uL (0.00-0.20); Basophils % (auto) 0.3 %; Eosinophils # (auto) 0.23 K/uL (0.00-0.50); Eosinophils % (auto) 2.4 %; Hematocrit (blood only) 33.9 % (37.0-47.0); Immature Granulocytes # (auto) 0.04 K/uL (0.01-0.20); Immature Granulocytes % (auto) 0.4 %; Lymphocytes % (auto) 30.8 %; Mean Corpuscular Hemoglobin 28.6 pg (25.0-34.0); Mean Corpuscular Hgb Conc 32.4 g/dL (32.0-36.0); Mean Corpuscular Volume 88.3 fL (80.0-100.0); Mean Platelet Volume 9.7 fL (9.4-12.4); Monocytes # (auto) 0.51 K/uL (0.11-0.59); Monocytes % (auto) 5.2 %; Neutrophils # (auto) 5.92 K/uL (1.40-6.50); Neutrophils % (auto) 60.9 %; Platelet Count 272 K/uL (130-400); RDW Coefficient of Variation 13.9 % (11.5-14.5); RDW Standard Deviation 44.4 fL (36.4-46.3); Red Blood Count 3.84 M/uL (4.20-5.40); White Blood Count 9.73 K/ul (4.8-10.8)
[2024-08-25 06:39] LABS: Partial Thromboplastin Ratio 1.1; Partial Thromboplastin Time 30 Seconds (21-31)
[2024-08-25 06:54] LABS: BUN Creatinine Ratio 27.5 (10-20); Creatinine Clr Calc Pharmacy 191.2 ml/min; Potassium 3.7 mmol/L (3.5-5.1)
--- NOTE | 2024-08-25 09:27 | Neurology Consultation ---
Date of Consultation August 25, 2024 Assessment & Plan (1) Headache: History of Present Illness Attending Physician: Dalia Xavier MD History of Present Illness S: pt this morning resting comfortably. she had her room light down but she was on her cellphone when i saw her this morning. not in distress. she actually states she does not have headache but just light pressure in forehead. CT head negative. followed by Dr. Braxton and stefania blanca in neuro clinic . chart reviewed. admission HPi: Medical history significant for idiopathic intracranial hypertension, inappropriate sinus tachycardia, prolonged QTc, hyperlipidemia, history lower extremity DVT status post anticoagulation, asthma, HUGO/CPAP intolerance, GERD, fibromyalgia, HLA B27 positivity, prediabetes as per patient, fibromyalgia, somatoform disorder as per records, past tobacco abuse. Recent confinement last month worsening headache symptoms with blurred vision attributed to pseudotumor cerebri. Headache symptoms worse with Diamox Rx from neurology. Diamox eventually discontinued outpatient as per patient account. Worsening headaches associated with bilateral tinnitus and dizziness symptoms. No hearing loss or discharge. Patient also presenting with 6 weeks history of chest pain going to the left side with some SOB, no cough symptoms. Outpatient PE study done 2 weeks ago at [facility] ER negative for clot. Outpatient stress test contemplated by PCP. Patient also complaining of achy abdominal pain with diarrhea symptoms present since confinement last month at [facility]. No fever, no chills. Stools intermittently blood streaked which he attributes to possible anal fissure. Patient admitted under Psychiatry service 2 days ago as a voluntary commitment for anxiety depression symptoms. Patient denies suicidality. Worsening headache, chest pain, abdominal pain since U confinement as per patient. Chest pain relieved by nitroglycerin intake tonight. Allergies Allergy/AdvReac Type Severity Reaction Status Date / Time amoxicillin Allergy Severe ANAPHYLAXIS Verified 08/13/24 14:38 clavulanic acid Allergy Severe ANAPHYLAXIS Verified 08/13/24 14:38 doxycycline Allergy Intermediate Rash Verified 08/13/24 14:38 fish derived Allergy Intermediate Hives Verified 08/13/24 14:38 metronidazole Allergy Intermediate rash Verified 08/13/24 14:38 sulfamethoxazole Allergy Intermediate tongue Verified 08/13/24 14:38 [From Bactrim] swelling trimethoprim [From Bactrim] Allergy Intermediate tongue Verified 08/13/24 14:38 swelling coffee (Coffea arabica) Allergy Unknown per Verified 08/13/24 14:38 allergy testing Penicillins Allergy Unknown per Verified 08/13/24 14:38 allergy testing Home Medications Medication Instructions Recorded Confirmed Type loratadine 10 mg tablet (Claritin) 10 mg PO HS Congestion 03/21/20 08/22/24 History escitalopram oxalate 10 mg tablet 5 mg PO PM 08/02/24 08/22/24 History magnesium glycinate 200 mg PO HS 08/22/24 08/22/24 History aripiprazole 5 mg tablet (Abilify) 5 mg PO QAM #30 tabs 08/24/24 Rx melatonin 3 mg tablet 4.5 mg (1.5 x 3 mg) PO HS #45 tabs 08/24/24 Rx cholecalciferol (vitamin D3) 50 50 mcg PO DAILY 08/25/24 History mcg (2,000 unit) capsule Patient History Medical History Abnormal EEG Ankylosing spondylitis Anxiety and depression Change in vision Chest pain Chest pain COVID-19 Degenerative disc disease Dizziness DVT (deep venous thrombosis) Eustachian tube dysfunction Fatigue GERD (gastroesophageal reflux disease) Headache Heart palpitations High cholesterol History of bradycardia History of bulimia History of pre-eclampsia Insomnia Iron deficiency anemia Migraine Morbid obesity with BMI of 40.0-44.9, adult Seasonal allergies Thoracic disc disease Vitamin B12 deficiency Vitamin D deficiency Surgical History History of cardiac cath 06/2015 @ [facility] [place]--d/t chest pain, normal no stents History of cholecystectomy History of esophagogastroduodenoscopy (EGD) History of wisdom tooth extraction Family History (System 10/17/22 @ 08:26 by Sophia Benavidez) Father Hypertension Mother Diabetes Grandfather (Maternal) Diabetes Coronary heart disease Myocardial infarction Congestive heart failure Colorectal cancer Grandfather (Paternal) Diabetes Coronary heart disease Myocardial infarction, Onset Age: 50 Grandmother (Paternal) Pulmonary emphysema Sick sinus syndrome Diabetes Pacemaker Grandmother (Maternal) Family history of diabetes mellitus Aunt Pulmonary emphysema Family/Other Myocardial infarction, Onset Age: 37 Coronary heart disease Uncle Stroke Other Asthma Lymphoma No family history of adverse response to anesthesia Denies family history of Ovarian cancer Prostate cancer Breast cancer Social History (System 05/03/23 @ 08:26 by Sophia Benavidez) Smoking Status: Former smoker Tobacco Type: Cigarettes Second Hand Exposure: No; Do You Dip or Chew Tobacco: No; Hx Alcohol Use: Yes Alcohol type: beer Hx Substance Use: No Preferred Language: Bruneian Communication Ability: Effective Communication Tools: Other Visual Impairment: No Limitations Hearing Ability: Normal 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: No Beliefs That Will Affect Care: None marital status: Current Living Situation: Family and Significant Other Current Living Situation Comment: Lives with and daughter current occupational status: unemployed How many Children do You have: 1 Feels Safe at Home: Yes Childhood Exposure to Second-Hand Smoke: Yes Diet: regular caffeine: No during the past year weight has: remained stable Dental Care, Regularly: Yes Physical Activity Frequency: 5-6 Times per Week Seatbelt Use: never Sunscreen Use: Yes Gender Identity: Female Assistive Devices: Glasses Exam (Neuro) Physical Exam: HEENT: normocephalic grossly Neuro: Mental: AOx4, fluent speech, normal comprehension, no apraxia, no L/R confusion, no neglect CN: PERRL, Full EOM, symmetric face, Motor: No abnormal movements, normal tone, 5/5 t/o bilaterally Coord: intact Impression: 38 yo female with significant psychiatric history with chronic abdominal pain, chest pain and reported ?Pseudotumor cerebri. Pt currently does not have intractable headache. She stopped diamox due to side effect (not because it caused more headache). Her LP recently actually was only borderline elevated (Dr. Braxton is considering maybe she does not have Pseudotumor cerebri). pt currently stable from headache stand point. Recommendations: can start topamax 25mg po bid for headache prevention. continue tx for her other medical issues and improve stress and anxiety and mood. no further work up needed from neurology stand point. routine f/u in neurology clinic as planned is ok. will sign off. Chart reviewed I have spent more than 50% educating patient about potential diagnosis and neurological evaluation and coordinating care with patient's treatment team. Total time spent (including chart review and coordination of care): 50 min (this includes chart review). Results & Data Vital Signs (Past 12 Hours) Vital Signs Temp Pulse Pulse Resp BP Pulse Ox O2 Del Method 08/25/24 08:02 79 08/25/24 07:54 36.6 C 72 17 110/68 94 Room Air 08/25/24 03:10 36.5 C 86 16 113/67 96 Room Air 08/25/24 02:27 08/24/24 23:38 36.3 C L 86 20 127/81 96 Room Air O2 Del Method 08/25/24 08:02 08/25/24 07:54 08/25/24 03:10 08/25/24 02:27 Room Air 08/24/24 23:38 PG Care Time/CCT Total # of Minutes Spent Total Time Spent with Patient: Total time spent is greater than 50% in coordination of care (as documented) at patient's floor/unit and/or counseling patient: Coding Level of Care Code 89418 IN/OBS CONSULT LVL 3,45M Diagnoses Other headache syndrome G44.89 Headache type: other headache syndrome (1) Headache Headache type: other headache syndrome Qualified Code(s): G44.89 - Other headache syndrome
[2024-08-25] MEDS: ARIPiprazole 5 MG TAB PO SCH ×2 (09:47→20:35)
--- NOTE | 2024-08-25 15:07 | Hospitalist Progress Note ---
Date of Service August 25, 2024 Assessment & Plan (1) Pain: Plan: 38-year-old lady with PMH of idiopathic intracranial hypertension, inappropriate sinus tachycardia, prolonged QTc, HLD, lower extremity DVT status post anticoagulation, asthma, HUGO/CPAP intolerance, GERD, fibromyalgia, HLA-B27 positive, prediabetes, fibromyalgia, somatoform disorder, past tobacco abuse was admitted from [facility] due to worsening headache associated with bilateral tinnitus and dizziness symptoms and loose stools with epigastric discomfort. Patient reports several weeks of loose stool and epigastric discomfort about 4 to 6 weeks. Patient also reported 6 weeks history of chest pain/upper belly pain. Of note, patient recently had PE study done at [facility] 2 weeks ago [employer] which was negative for clot, patient was recently admitted with worsening headache symptoms with blurred vision attributed to pseudotumor cerebri and headache symptoms were worse with Diamox from neurology which was eventually discontinued as outpatient as per patient account. She is being managed for the following: Headache H/o pseudotumor cerebri Unremarkable brain MRI last month. Admitting CT head negative for acute finding. Patient reports improvement in her headache today. Neurology evaluated, recommends Topamax which has been started for headache prevention. Outpatient ENT eval for bilateral tinnitus. f/u w/ neuro on dc. Loose stools, upper belly discomfort Patient reports having upper belly discomfort and loose stools for about 4 to 6 weeks Admitting CTAP with no acute finding. Send stool for PCR and C. difficile. c/w ivf. Nausea meds. Add psyllium fiber and questran, hold Imodium until stool results are out. Monitor replete electrolytes. PPI trial for epigastric discomfort. History fibromyalgia/somatoform disorder/mood disorder/anxiety: psychiatry consult to help w/ management. Chest pain rule out ACS: Patient reports chest pain of about 6 weeks duration, troponin trends negative, EKG without acute ST or T changes. Stress echocardiogram negative for inducible ischemia. c/w tele monitoring for now. Other chronic medical conditions: Continue with/resume home meds as and when able. inappropriate sinus tachycardia prolonged QTc hyperlipidemia, not on statin Rx history lower extremity DVT status post anticoagulation asthma HUGO, CPAP intolerant; repeat sleep study recommended by PCP as per records hx GERD, currently not on maintenance medications HLA B27 positivity as per records, no ankylosing spondylitis as per outpatient [facility] rheumatology evaluation from 2021 prediabetes, outpatient hemoglobin A1c of 5.5 this month past tobacco abuse DVT prophylaxis. Hep sc given h/o dvt and pt's lack of mobility here, monitor HnH closely pt did complaint of h/o occasional red streak w/ stool. Full code Text document was generated using [employer] voice recognition software. It may contain grammatical or spelling errors. Kindly contact undersigned for clarification of any documentation item in question. Admission and Anticipated Discharge Date Admission Date: August 24, 2024 Subjective Patient was seen and examined at bedside. Patient was lying in bed, on room air, NAD, resting comfortably. Patient reports having loose stools multiple times a day, some epigastric discomfort, being weaker. Patient denies any headache today, patient denies fever/pain or burning while passing urine. Physical Exam Physical Exam: GENERAL: Comfortable, morbidly obese, no respiratory distress SKIN: Normal color, warm HEENT:pink palpebral conjunctivae, no ptosis, moist buccal mucosa; AD : Patent EAC, intact TM with healed perforation, : patent EAC, no discharge, intact TM NECK : Supple, short neck, no tenderness CHEST : CTA, no tenderness HEART : RRR, no obvious murmurs ABDOMEN: Some distention, minimal epigastric tenderness EXTREMITIES : Minimal LE swelling, no LE tenderness, no other conspicuous deformities noted NEUROLOGIC : Coherent, no facial asymmetry, gait and stance not assessed Results & Data Results & Data Vital Signs (Past 12 Hours) Vital Signs Temp Pulse Pulse Resp BP Pulse Ox O2 Del Method 08/25/24 12:04 36.7 C 91 H 20 143/87 H 93 Room Air 08/25/24 08:02 79 08/25/24 07:54 36.6 C 72 17 110/68 94 Room Air 08/25/24 03:10 36.5 C 86 16 113/67 96 Room Air
--- NOTE | 2024-08-25 15:13 | Psychiatric Consultation ---
Date of Consultation August 25, 2024 Impression / Recommendations Impression Patient undergoing work-up for chest pain and loose stools. Has been tolerating her psychotropics well with a decrease in racing thoughts and improved mood. Given sedation from Abilify recommend to schedule at bedtime. Continued sleep maintenance dysfunction and recommend addition of low dose Lorazepam at bedtime. Continues to be in a depressive episode and some suspicion for a somatic symptom disorder given physical symptoms with excess and disproportionate distress and preoccupation; however may benefit from medical work-up to r/o illness. No current suicidal ideation and does not present as an acute safety concern. Overall, I spent a total of 60 minutes with this case including review of chart records, nursing report, review of lab work, direct evaluation of the patient at bedside, counseling the patient, discussion of the patient with the hospitalist provider, discussion with the psychiatric liaison during clinical rounds, and documentation in the electronic health record. (1) Major depressive disorder, recurrent episode with anxious distress: (2) Prolonged QT interval: Plan Aripiprazole 5mg at bedtime due to sedation s/e Lorazepam 0.5mg at bedtime for sleep Continue Escitalopram 5mg QD No indication for bedside sitter or suicide precautions Psych History Identifying Data 38-year-old lady with PMH of idiopathic intracranial hypertension, inappropriate sinus tachycardia, prolonged QTc, HLD, lower extremity DVT status post anticoagulation, asthma, HUGO/CPAP intolerance, GERD, fibromyalgia, HLA-B27 positive, prediabetes, fibromyalgia, somatoform disorder, past tobacco abuse was admitted from [facility] due to worsening headache associated with bilateral tinnitus and dizziness symptoms and loose stools with epigastric discomfort. Psychiatry consulted to continue management of her depression and anxiety. Chief Complaint "Something is wrong with me" History of Present Illness The patient reports on-going diarrhea. C/o dizziness and ear ringing. Reports stress test went well. On interview, appears clamer today, less restless. Continued nightly awakenings. Denies inner feelings of restlessness. Reports dec in racing thoughts. Denies SI. Reports abilify makes her sedated; willing to take at night. Allergies Allergy/AdvReac Type Severity Reaction Status Date / Time amoxicillin Allergy Severe ANAPHYLAXIS Verified 08/13/24 14:38 clavulanic acid Allergy Severe ANAPHYLAXIS Verified 08/13/24 14:38 doxycycline Allergy Intermediate Rash Verified 08/13/24 14:38 fish derived Allergy Intermediate Hives Verified 08/13/24 14:38 metronidazole Allergy Intermediate rash Verified 08/13/24 14:38 sulfamethoxazole Allergy Intermediate tongue Verified 08/13/24 14:38 [From Bactrim] swelling trimethoprim [From Bactrim] Allergy Intermediate tongue Verified 08/13/24 14:38 swelling coffee (Coffea arabica) Allergy Unknown per Verified 08/13/24 14:38 allergy testing Penicillins Allergy Unknown per Verified 08/13/24 14:38 allergy testing Home Medications Medication Instructions Recorded Confirmed Type loratadine 10 mg tablet (Claritin) 10 mg PO HS Congestion 03/21/20 08/22/24 History escitalopram oxalate 10 mg tablet 5 mg PO PM 08/02/24 08/22/24 History magnesium glycinate 200 mg PO HS 08/22/24 08/22/24 History aripiprazole 5 mg tablet (Abilify) 5 mg PO QAM #30 tabs 08/24/24 Rx melatonin 3 mg tablet 4.5 mg (1.5 x 3 mg) PO HS #45 tabs 08/24/24 Rx cholecalciferol (vitamin D3) 50 50 mcg PO DAILY 08/25/24 History mcg (2,000 unit) capsule Patient History Medical History (Updated 08/25/24 @ 15:06 by Benjamin Shannon MD) Headache Sinus tachycardia Chest pain Adjustment disorder with anxious mood Chest pain Fatigue COVID-19 Change in vision Dizziness History of pre-eclampsia History of bradycardia DVT (deep venous thrombosis) Morbid obesity with BMI of 40.0-44.9, adult Iron deficiency anemia Heart palpitations Surgical History (System 10/17/22 @ 08:26 by Sophia Benavidez) History of esophagogastroduodenoscopy (EGD) History of wisdom tooth extraction History of cardiac cath 06/2015 @ [facility] [place]--d/t chest pain, normal no stents History of cholecystectomy Family History (System 10/17/22 @ 08:26 by Sophia Benavidez) Father Hypertension Mother Diabetes Grandfather (Maternal) Diabetes Coronary heart disease Myocardial infarction Congestive heart failure Colorectal cancer Grandfather (Paternal) Diabetes Coronary heart disease Myocardial infarction, Onset Age: 50 Grandmother (Paternal) Pulmonary emphysema Sick sinus syndrome Diabetes Pacemaker Grandmother (Maternal) Family history of diabetes mellitus Aunt Pulmonary emphysema Family/Other Myocardial infarction, Onset Age: 37 Coronary heart disease Uncle Stroke Other Asthma Lymphoma No family history of adverse response to anesthesia Denies family history of Ovarian cancer Prostate cancer Breast cancer Social History (System 10/17/22 @ 08:26 by Sophia Benavidez) Smoking Status: Former smoker Tobacco Type: Cigarettes Second Hand Exposure: No; Do You Dip or Chew Tobacco: No; Hx Alcohol Use: Yes Alcohol type: beer Hx Substance Use: No Preferred Language: Maltese Communication Ability: Effective Communication Tools: Other Visual Impairment: No Limitations Hearing Ability: Normal Laborer Driver Required: No Beliefs That Will Affect Care: None marital status: Current Living Situation: Family and Significant Other Current Living Situation Comment: Lives with and daughter current occupational status: unemployed How many Children do You have: 1 Feels Safe at Home: Yes Childhood Exposure to Second-Hand Smoke: Yes Diet: regular caffeine: No during the past year weight has: remained stable Dental Care, Regularly: Yes Physical Activity Frequency: 5-6 Times per Week Seatbelt Use: never Sunscreen Use: Yes Gender Identity: Female Assistive Devices: None Physical Exam Mental Examination: Appearance: Disheveled Eye Contact: Maintains Eye Contact Motor Behavior: Restless Speech: Normal Mood: Anxious Affect: Calm and Constricted Thought Process: Intact and Linear Thought Content: Intact Hallucinations: None Insight: Poor (to limited) Judgement: Fair (to limited) Vital Signs (Past 24 Hours): Last Vital Signs Temp 36.7 C 08/25/24 12:04 Pulse 91 H 08/25/24 12:04 Resp 20 08/25/24 12:04 BP 143/87 H 08/25/24 12:04 Pulse Ox 93 08/25/24 12:04 O2 Del Method Room Air 08/25/24 12:04 Results & Data (PSY) Medications Administered Aripiprazole (Aripiprazole 5 Mg Tab) 5 mg PO QAM ANNA Stop: 09/24/24 08:59 Last Admin: 08/25/24 09:47 Dose: Not Given Documented By: DIMITRIOS Potassium Chloride/Sodium Chloride (1/2 Nss + 20meq Kcl 1000ml) 20 meq in 1,000 mls @ 60 mls/hr IV .[id number] ONE Stop: 08/25/24 15:57 Last Infusion: 08/25/24 11:11 Dose: 60 mls/hr Documented By: Infusion: 08/25/24 10:15 Dose: 0 mls/hr Documented By: Admin: 08/24/24 23:33 Dose: 60 mls/hr Documented By: TMPankaj [place] [address] IN/OBS CONSULT LVL 4,60M Patient Type New History Detailed Exam Detailed Medical Decision Making High Complexity Diagnoses Major depressive disorder, recurrent episode with anxious distress F33.9 Prolonged QT interval R94.31
[2024-08-25] MEDS ORDERED: LORazepam 0.5 MG TAB PO PRN (15:16)
[2024-08-25] MEDS: PSYLLIUM or GUAR GUM FIBER 4GM PACKET PO SCH (15:58)
[2024-08-25 16:02] LABS: Adenovirus F 40/41 PCR Not Detected (NotDetected); Astrovirus PCR Not Detected (NotDetected); Campylobacter PCR Not Detected (NotDetected); Cryptosporidium PCR Not Detected (NotDetected); Cyclospora cayetanensis PCR Not Detected (NotDetected); Entamoeba histolytica PCR Not Detected (NotDetected); Enteroaggregative E.coli(EAEC) Not Detected (NotDetected); Enteropathogenic E.coli (EPEC) Not Detected (NotDetected); Enterotoxigenic E.coli (ETEC) Not Detected (NotDetected); Giardia lamblia PCR Not Detected (NotDetected); Norovirus GI/GII PCR Not Detected (NotDetected); Plesiomonas shigelloides PCR Not Detected (NotDetected); Rotavirus A PCR Not Detected (NotDetected); Salmonella PCR Not Detected (NotDetected); Sapovirus PCR Not Detected (NotDetected); Shiga-like Toxin E.coli (STEC) Not Detected (NotDetected); Shigella/Enteroinvasive E.coli Not Detected (NotDetected); Vibrio cholerae PCR Not Detected (NotDetected); Vibrio species PCR Not Detected (NotDetected); Yersinia enterocolitica PCR Not Detected (NotDetected)
--- NOTE | 2024-08-25 19:47 | Communication Note ---
Date of Service: August 25, 2024 Patient informed undersigned of episodic blank stares at home. Patient worried about seizures. EEG in AM.
[2024-08-25] MEDS: MELATONIN 3 MG TAB PO SCH (20:33)
[2024-08-25] MEDS: PANTOprazole 40 MG TAB PO SCH (20:34)
[2024-08-25] MEDS: LORATADINE 10 MG TAB PO SCH (20:34)
[2024-08-25] MEDS: ESCITALOPRAM OXALATE 10 MG TAB PO SCH (20:35)
[2024-08-25] MEDS: TOPIRAMATE 25 MG TAB PO SCH (20:37)
[2024-08-25] MEDS: HEPARIN SOD 5,000 UNIT/0.5 ML VIAL SQ SCH (21:28)
[2024-08-25] MEDS: CHOLESTYRAMINE LIGHT 4 GM PKT PO SCH (21:28)
--- NOTE | 2024-08-25 22:12 | Electrocardiogram Report ---
Test Reason : Blood Pressure : */* mmHG Vent. Rate : 70 BPM Atrial Rate : 70 BPM P-R Int : 174 ms QRS Dur : 74 ms QT Int : 392 ms P-R-T Axes : 21 4 36 degrees QTcB Int : 423 ms Normal sinus rhythm Minimal voltage criteria for LVH, may be normal variant ( R in aVL ) Cannot rule out Inferior infarct (cited on or before 20-Jul-2024) Abnormal ECG When compared with ECG of 24-Aug-2024 22:45, QT has shortened Confirmed by Darryl Fernandez ([id number]) on 08/25/2024 10:11:59 PM Referred By: Shree Bear Confirmed By: Darryl Fernandez
[2024-08-26 06:36] LABS: Hematocrit (blood only) 35.5 % (37.0-47.0); Hemoglobin 11.5 g/dl (12.0-16.0); Mean Corpuscular Hemoglobin 28.8 pg (25.0-34.0); Mean Corpuscular Hgb Conc 32.4 g/dL (32.0-36.0); Mean Corpuscular Volume 88.8 fL (80.0-100.0); Mean Platelet Volume 9.8 fL (9.4-12.4); Platelet Count 272 K/uL (130-400); RDW Coefficient of Variation 13.9 % (11.5-14.5); RDW Standard Deviation 44.7 fL (36.4-46.3); White Blood Count 7.86 K/ul (4.8-10.8)
[2024-08-26 07:07] LABS: BUN Creatinine Ratio 20.4 (10-20); Calcium 9.3 mg/dl (8.6-10.3); Creatinine Clr Calc Pharmacy 178.9 ml/min; Magnesium 2.1 mg/dl (1.7-2.4); Phosphorus 4.1 mg/dl (2.5-4.9); Potassium 3.8 mmol/L (3.5-5.1)
--- NOTE | 2024-08-26 13:36 | Hospitalist Progress Note ---
Date of Service August 26, 2024 Assessment & Plan (1) Pain: Plan: 38-year-old lady with PMH of idiopathic intracranial hypertension, inappropriate sinus tachycardia, prolonged QTc, HLD, lower extremity DVT status post anticoagulation, asthma, HUGO/CPAP intolerance, GERD, fibromyalgia, HLA-B27 positive, prediabetes, fibromyalgia, somatoform disorder, past tobacco abuse was admitted from [facility] due to worsening headache associated with bilateral tinnitus and dizziness symptoms and loose stools with epigastric discomfort. Patient reports several weeks of loose stool and epigastric discomfort about 4 to 6 weeks. Patient also reported 6 weeks history of chest pain/upper belly pain. Of note, patient recently had PE study done at [facility] 2 weeks ago [employer] which was negative for clot, patient was recently admitted with worsening headache symptoms with blurred vision attributed to pseudotumor cerebri and headache symptoms were worse with Diamox from neurology which was eventually discontinued as outpatient as per patient account. She is being managed for the following: Headache H/o pseudotumor cerebri Unremarkable brain MRI last month. Admitting CT head negative for acute finding. Patient denies anymore headache. Neurology evaluated 08/25, recommended Topamax which has been started for headache prevention. Outpatient ENT eval for b ilateral tinnitus. f/u w/ neuro on dc. Pt now states that she doesn't want topamax w/o consulting her own neurology as OP. Loose stools, upper belly discomfort Patient reports having upper belly discomfort and loose stools for about 4 to 6 weeks [employer] Admitting CTAP with no acute finding. Neg stool for PCR and C. difficile. Pt reports improving stool consistency and improving upper belly discomfort. C/w psyllium fiber and questran, c/w PPI trial. Monitor replete electrolytes. History fibromyalgia/somatoform disorder/mood disorder/anxiety: psychiatry consult to help w/ management. d/ w psy 08/26 - ok to dc from psych POV. Chest pain rule out ACS: Patient reports chest pain of about 6 weeks duration, troponin trends negative, EKG without acute ST or T changes. Stress echocardiogram negative for inducible ischemia. c/w tele monitoring for now. Pt didn't complain of chest pain today. Concern for seizure: pt has mentioned such concern to overnight physician, i followed upon this with patient by myself as pt didn't bring it up herself during bedside exam, she states she had blank stares at home and has family members with seizures, hence she would like to get EEG, which has been ordered, pending. Other chronic medical conditions: Continue with/resume home meds as and when able. inappropriate sinus tachycardia prolonged QTc hyperlipidemia, not on statin Rx history lower extremity DVT status post anticoagulation asthma HUGO, CPAP intolerant; repeat sleep study recommended by PCP as per records hx GERD, currently not on maintenance medications HLA B27 positivity as per records, no ankylosing spondylitis as per outpatient [facility] [place] evaluation from 2021 prediabetes, outpatient hemoglobin A1c of 5.5 this month past tobacco abuse DVT prophylaxis. Hep sc given h/o dvt and pt's lack of mobility here, monitor HnH closely pt did complaint of h/o occasional red streak w/ stool. Full code Dispo: Pending EEG, to home once test done/read. Text document was generated using [employer] voice recognition software. It may contain grammatical or spelling errors. Kindly contact undersigned for clarification of any documentation item in question. Admission and Anticipated Discharge Date Admission Date: August 24, 2024 Subjective Patient was seen and examined at bedside. Patient was sitting up in bed, using her mobile phone, on room air, NAD, resting comfortably. Per RN no loose stools today, pt reports some improvement in her upper belly discomfort and states now it doesn't wake her up from sleep. . Patient denies any headache, patient denies fever/pain or burning while passing urine. Overnight, pt mentioned she has episodic blank stares at home and she has h/o seizures in the family and hence would like to get EEG which is pending as of now. Physical Exam Physical Exam: GENERAL: Comfortable, morbidly obese, no respiratory distress SKIN: Normal color, warm HEENT:pink palpebral conjunctivae, no ptosis, moist buccal mucosa; AD : Patent EAC, intact TM with healed perforation, : patent EAC, no discharge, intact TM NECK : Supple, short neck, no tenderness CHEST : CTA, no tenderness HEART : RRR, no obvious murmurs ABDOMEN: Some distention, supervisor stave finishing epigastric tenderness EXTREMITIES : Minimal LE swelling, no LE tenderness, no other conspicuous deformities noted NEUROLOGIC : Coherent, no facial asymmetry, gait and stance not assessed Results & Data Results & Data Vital Signs (Past 12 Hours) Vital Signs Temp Pulse Pulse Resp BP Pulse Ox O2 Del Method 08/26/24 11:49 36.7 C 84 20 142/98 H 96 Room Air 08/26/24 08:00 79 08/26/24 07:39 36.5 C 79 20 137/87 93 Room Air 08/26/24 03:10 36.7 C 79 14 117/79 93 Room Air
--- NOTE | 2024-08-26 17:31 | Electroencephalogram ---
EEG Procedure Note Date of Service August 26, 2024 Start / End Times Start Time: 2:12 PM End Time: 2:32 PM Referring Physician [place] History Idiopathic intracranial hypertension, seizure-like activity Home Medication List Medication Instructions Recorded Confirmed Type escitalopram oxalate 10 mg tablet 5 mg PO PM 08/02/24 08/25/24 History magnesium glycinate 100 mg (as 200 mg PO HS ##0 08/22/24 08/25/24 History glycinate) tablet melatonin 5 mg tablet 5 mg PO HS 08/25/24 08/25/24 History Inpatient Medication List Aripiprazole (Aripiprazole 5 Mg Tab) 5 mg PO HS ANNA Stop: 09/24/24 20:59 Last Admin: 08/25/24 20:35 Dose: 2.5 mg Documented By: LMP Cholestyramine Resin (Cholestyramine Light 4 Gm Pkt) 4 gm PO BID@1000,2200 ANNA Stop: 09/24/24 21:59 Last Admin: 08/26/24 10:15 Dose: Not Given Documented By: Admin: 08/25/24 21:28 Dose: Not Given Documented By: LMP Escitalopram Oxalate (Escitalopram Oxalate 10 Mg Tab) 5 mg PO PM ANNA Stop: 09/24/24 20:59 Last Admin: 08/25/24 20:35 Dose: 5 mg Documented By: LMP Heparin Sodium (Porcine) (Heparin Sod 5,000 Unit/0.5 Ml Vial) 5,000 units SQ Q8 ANNA Stop: 09/24/24 21:59 Last Admin: 08/26/24 15:03 Dose: Not Given Documented By: Admin: 08/26/24 05:52 Dose: 5,000 units Documented By: Admin: 08/25/24 21:28 Dose: 5,000 units Documented By: LMP Loratadine (Loratadine 10 Mg Tab) 10 mg PO HS ANNA Stop: 09/24/24 20:59 Last Admin: 08/25/24 20:34 Dose: Not Given Documented By: LMP Melatonin (Melatonin 3 Mg Tab) 4.5 mg PO HS ANNA Stop: 09/24/24 20:59 Last Admin: 08/25/24 20:33 Dose: 4.5 mg Documented By: LMP Pantoprazole Sodium (Pantoprazole 40 Mg Tab) 40 mg PO BID ANNA Stop: 09/24/24 20:59 Last Admin: 08/26/24 08:21 Dose: 40 mg Documented By: Admin: 08/25/24 20:34 Dose: 40 mg Documented By: LMP Psyllium Hydrophilic Mucilloid (Psyllium Or Guar Gum Fiber 4gm Packet) 4 gm PO QAM ANNA Stop: 09/24/24 14:59 Last Admin: 08/26/24 08:21 Dose: 4 gm Documented By: Admin: 08/25/24 15:58 Dose: 4 gm Documented By: BT Discontinued Medications Aripiprazole (Aripiprazole 5 Mg Tab) 5 mg PO QAM ANNA Stop: 09/24/24 08:59 Last Admin: 08/25/24 09:47 Dose: Not Given Documented By: BT Potassium Chloride/Sodium Chloride (1/2 Nss + 20meq Kcl 1000ml) 20 meq in 1,000 mls @ 60 mls/hr IV .[id number] ONE Stop: 08/25/24 15:57 Last Infusion: 08/25/24 17:57 Dose: Infused Documented By: Infusion: 08/25/24 11:11 Dose: 60 mls/hr Documented By: Infusion: 08/25/24 10:15 Dose: 0 mls/hr Documented By: Admin: 08/24/24 23:33 Dose: 60 mls/hr Documented By: TMG Ioversol (Optiray 320 100ml) 100 ml IV ONCE ONE Stop: 08/25/24 01:02 Last Admin: 08/25/24 01:01 Dose: 93 ml Documented By: JULIANA Miscellaneous (Patient's Height &/Or Weight Needed) 1 each N/A NOW STA Stop: 08/24/24 23:22 Last Admin: 08/25/24 03:43 Dose: 1 each Documented By: TMG Topiramate (Topiramate 25 Mg Tab) 25 mg PO BID [facility] Stop: 09/24/24 20:59 Last Admin: 08/26/24 08:24 Dose: Not Given Documented By: Admin: 08/25/24 20:37 Dose: Not Given Documented By: LMP Description This is a 21 electrode EEG with a single channel dedicated to limited EKG. The electrodes were placed in accordance with the International 10-20 system. There is a posterior dominant rhythm of 9 Hz which is symmetrically distributed and attenuates with eye opening. There is a normal anterior to posterior organization. Photic stimulation is unremarkable. Hyperventilation is not performed. There is intermittent left frontotemporal theta slowing. There are no epileptiform abnormalities. Interpretation Fairly normal-appearing awake/drowsy EEG. There is intermittent left frontotemporal theta slowing. This finding is nonspecific. If there is clinical concern for seizures in this patient, would recommend ambulatory EEG monitoring.
[2024-08-26] MEDS: LORazepam 0.5 MG TAB PO SCH (22:11)
[2024-08-27 03:45] VITALS: TEMP 98.2
[2024-08-27 06:43] LABS: Hematocrit (blood only) 37.6 % (37.0-47.0); Mean Corpuscular Hemoglobin 28.6 pg (25.0-34.0); Mean Corpuscular Hgb Conc 31.9 g/dL (32.0-36.0); Mean Corpuscular Volume 89.5 fL (80.0-100.0); Mean Platelet Volume 9.7 fL (9.4-12.4); Platelet Count 291 K/uL (130-400); RDW Standard Deviation 45.4 fL (36.4-46.3); White Blood Count 9.02 K/ul (4.8-10.8)
[2024-08-27 07:03] LABS: BUN Creatinine Ratio 25.9 (10-20); Calcium 9.3 mg/dl (8.6-10.3); Creatinine Clr Calc Pharmacy 166.3 ml/min
[2024-08-27 07:28] VITALS: BP 137/93; RESP 18; O2SAT 98
[2024-08-27 10:04] VITALS: PULSE 92
--- NOTE | 2024-08-27 14:01 | Discharge Summary ---
Date of Service August 27, 2024 Admission HPI Per Admitting Provider History obtained from patient and records. Medical history significant for idiopathic intracranial hypertension, inappropriate sinus tachycardia, prolonged QTc, hyperlipidemia, history lower extremity DVT status post anticoagulation, asthma, HUGO/CPAP intolerance, GERD, fibromyalgia, HLA B27 positivity, prediabetes as per patient, fibromyalgia, somatoform disorder as per records, past tobacco abuse. Recent confinement last month worsening headache symptoms with blurred vision attributed to pseudotumor cerebri. Headache symptoms worse with Diamox Rx from neurology. Diamox eventually discontinued outpatient as per patient account. Worsening headaches associated with bilateral tinnitus and dizziness symptoms. No hearing loss or discharge. Patient also presenting with 6 weeks history of chest pain going to the left side with some SOB, no cough symptoms. Outpatient PE study done 2 weeks ago at [facility] ER negative for clot. Outpatient stress test contemplated by PCP. Patient also complaining of achy abdominal pain with diarrhea symptoms present since confinement last month at [facility]. No fever, no chills. Stools intermittently blood streaked which he attributes to possible anal fissure. Patient admitted under Psychiatry service 2 days ago as a voluntary commitment for anxiety depression symptoms. Patient denies suicidality. Worsening headache, chest pain, abdominal pain since [facility] confinement as per patient. Chest pain relieved by nitroglycerin intake tonight. 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 Admission Exam Per Admitting Provider GENERAL: Comfortable, morbidly obese, no respiratory distress SKIN: Normal color, warm HEENT:pink palpebral conjunctivae, no ptosis, moist buccal mucosa; AD : Patent EAC, intact TM with healed perforation, : patent EAC, no discharge, intact TM NECK : Supple, short neck, no tenderness CHEST : CTA, no tenderness HEART : RRR, no obvious murmurs ABDOMEN: Some distention, minimal epigastric tenderness EXTREMITIES : Minimal LE swelling, no LE tenderness, no other conspicuous deformities noted NEUROLOGIC : Coherent, no facial asymmetry, gait and stance not assessed Principal Diagnosis Acute gastroenteritis Discharge Exam Constitutional: WD/WN, vitals as above, NAD, sitting up in bed, pleasant, conversing easily Respiratory: normal respiratory effort, lungs clear to auscultation, no wheeze, rales, rhonchi. Normal insp/exp effort, no accessory muscle use Cardiovascular: RRR, no murmur, no edema Vessels: no JVD or carotid bruit Chest: normal inspection of chest Abdomen: normal bowel sounds, soft, nontender, no hepatosplenomegaly Musculoskeletal: no cyanosis or clubbing, extremities motor strength 5/5 Skin: no rashes, warm and dry normal turgor Neurologic: PERRL, EOMI, accommodation nl, no face palsy, no dysarthria CN's II- XI intact bilaterally and moves all extremities Psychiatric: A+Ox3, euthymic affect Discharge Data Allergies Allergy/AdvReac Type Severity Reaction Status Date / Time amoxicillin Allergy Severe ANAPHYLAXIS Verified 08/25/24 17:31 clavulanic acid Allergy Severe ANAPHYLAXIS Verified 08/25/24 17:31 doxycycline Allergy Intermediate Rash Verified 08/25/24 17:31 fish derived Allergy Intermediate Hives Verified 08/25/24 17:31 metronidazole Allergy Intermediate rash Verified 08/25/24 17:31 sulfamethoxazole Allergy Intermediate tongue Verified 08/25/24 17:31 [From Bactrim] swelling trimethoprim [From Bactrim] Allergy Intermediate tongue Verified 08/25/24 17:31 swelling coffee (Coffea arabica) Allergy Unknown per Verified 08/25/24 17:31 allergy testing Penicillins Allergy Unknown per Verified 08/25/24 17:31 allergy testing Consultations 08/24/24 22:54 Consult Psychiatry Routine 08/25/24 03:36 Consult Neurology Routine Ordered Studies 08/25/24 00:33 CT head/brain wo con Stat 08/25/24 00:35 CT Abd and Pelvis [CT abd pelvis IV con only] Stat Hospital Course (1) Pain: 38-year-old lady with PMH of idiopathic intracranial hypertension, inappropriate sinus tachycardia, prolonged QTc, HLD, lower extremity DVT status post anticoagulation, asthma, HUGO/CPAP intolerance, GERD, fibromyalgia, HLA-B27 positive, prediabetes, fibromyalgia, somatoform disorder, past tobacco abuse was admitted from [facility] due to worsening headache associated with bilateral tinnitus and dizziness symptoms and loose stools with epigastric discomfort. Patient reports several weeks of loose stool and epigastric discomfort about 4 to 6 weeks. Patient also reported 6 weeks history of chest pain/upper belly pain. Headache H/o pseudotumor cerebri Unremarkable brain MRI last month. Admitting CT head negative for acute finding. Patient denies anymore headache. Neurology evaluated 08/25, recommended Topamax which has been started for headache prevention. Outpatient ENT eval for b ilateral tinnitus. Follow up with neurology after discharge. 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 Neg stool for PCR and C. difficile. Pt reports improving stool consistency and improving upper belly discomfort. Abdomen pain and diarrhea significantly decreased at discharge Chest pain rule out ACS: Patient reports chest pain of about 6 weeks duration, troponin trends negative, EKG without acute ST or T changes. Stress echocardiogram negative for inducible ischemia. Concern for seizure: Underwent EEG which showed fairly normal-appearing awake/drowsy EEG. Intermittent left frontotemporal theta slowing; nonspecific. I recommend following up with her neurologist at outpatient and obtaining ambulatory EEG monitoring for for further evaluation Please note the above document was generated using voice recognition software. It may contain grammatical, syntax or spelling errors. Any formal questions or concerns about the content, text or information contained within the body of this dictation should be directly addressed to the provider for clarification Total Time Total Time Spent Total Time Spent (In Minutes): 45 Total Time Includes: Examination of the Patient, Discharge Planning, Medication Reconciliation, Communication With Other Providers and Other Discharge Plan Discharge Items Patient Disposition: Home - Self-Care Reason For Visit: CHEST PAIN Discharge Diagnosis: Possible Acute Gastroenteritis Activity: Resume your previous activity Non-emergency contact: Primary Care Provider Call non-emergency contact if: you have any medication questions and your symptoms worsen Follow-up/Referrals: Ludy Santiago MD [Primary Care Provider] - Diet: Regular Addtl Attending Provider Instructions: You were admitted to the hospital with chest pain. You underwent evaluation with cardiac enzymes, EKG and stress echocardiogram which did not show any significant abnormal finding. You are prescribed Protonix to be taken once a day for possible GERD. Please follow-up with neurology to discuss ambulatory EEG monitoring. Follow-up with your primary care doctor. Pending Studies at Discharge: No Stand-Alone Forms: [employer], Smoking Cessation Medications and DC Order Prescriptions: New pantoprazole 40 mg Tablet,Delayed Release (Dr/Ec) 40 mg PO DAILY 30 Days Qty: 30 0RF Continued escitalopram oxalate 10 mg tablet 5 mg PO PM melatonin 5 mg Tablet 5 mg PO HS magnesium glycinate 100 mg Tablet 200 mg PO HS Qty: 0 Discharge Orders: Discharge Order (Routine); Ordered 08/27/24 Ordered By: Kristopher Phan Admission Data Admit Date/Time: 08/24/24 22:50 Attending Provider: Kristopher Phan Admit Provider: Shree Bear Primary Care Provider: Ludy Santiago Other Providers: Buddy Braxton; David Fay; Leanna Olsen; Magalie Swanson; Maile Treadwell; Victoriano Nuñez; Asya Ambrosio; Faisal Dewey; Rocío Sinha; Elena Gordon; Benjamin Shannon; Tatianna Hogue Other Interventions: Discharge Summary Assessment (RN) Last Done: 08/27/24 10:02
--- OUTSIDE RECORDS SUMMARY | 2024-08-27 15:21 | External Medical Summary | Summary of Care ---
Author Name Unknown Organization [facility] Address [address] [place] [address] Phone [phone] Care Team Providers Care Medical Dermatologist Name Role Phone Ludy Bob MD Primary Care Pr ovider Reason for Visit * Reason Onset Date Comments Appointment 08/20/2024 CT/Indira/author ization Encounter Details Date Type Department Care Team ([facility] st Contact Info) Description 08/20/[address] [phone] Ludy Bob MD [address] [place] [phone] Appointment (POP/Indira/authorizatio n ) Allergies Active [...] as of this encounter (statuses as of 08/26/2024) Medications melatonin 1 MG Tablet Take 3 [...] as of this encounter (statuses as of 08/26/2024) Active Problems Problem Noted Date Diagnosed Date [...] as of this encounter (statuses as of 08/26/2024) Resolved Problems Problem Noted Date Diagnosed Date [...] as of this encounter (statuses as of 08/26/2024) Immunizations Name Administration Dates Next Due Hepatitis [...] Telephone Encounter - Angelina Carter OSA - 08/26/2024 2:53 PM EDT [facility] Family Auth # is [id number]. I called Indira, she is scheduled for 09/25/24 @ 3:30 pm. * Telephone Encounter - Angelina Carter OSA - 08/20/2024 3:27 PM EST Patient wants to have CT T spine at [facility]. I sent message to faviola alcantara to get authorization from insurance. documented in this encounter Plan of Treatment Upcoming Encounters Date Type Department Care Team (Late st Contact Info) Description 08/28/2024 9:00 AM EDT Office Visit Cardiology, [facility] [address] [facility] [place] [id number] Ke[facility]con[facility] [address] [facility] [address] 08/28/2024 11:20 AM EDT Office Visit Family Medicine [address] [phone] Ludy Bob MD [address] [place] [address] [place] [phone] 09/07/2024 2:00 PM EDT Office Visit Rheumatology [address] [place] [phone] Buddy Yañez MD [address] [place] [address], [place] [address] 10/09/2024 11:00 AM EDT Office Visit Family Medicine [address] [phone] Ludy Bob MD [address] [place] [address] [place] [phone] 05/26/2025 9:00 AM EST Office Visit Family Medicine [address] [place] [phone] Angela Raza MD [address] [place] [address] [place] [id number] Health Maintenance Due Date Last Done Comments [...] 07/02/2022, 09/2017, 11/03/2012, Additional history exists GFR 08/21/2025 08/21/2024, 07/19, 07/14/2024, Additional history exists Diabetes Screening 08/22/2027 08/21/2024, 0 08/21/2024, 08/13/2024, Additional history exists HPV (Gardasil) Vaccine Aged [...] Power of Attor wesley? No Care Teams Medical Dermatologist Relationship Specialty Start Date End Date Ludy Bob MD [address] [place] [address] [place] [phone] PCP - General Family Medicine 08/10/24 documented as of this encounter
--- OUTSIDE RECORDS SUMMARY | 2024-08-27 15:22 | External Medical Summary ---
Author Name Unknown Address Unknown Organization : Laboratory Report Ordering Provider Test Date Status GERARDO REYNOSO SEIFERT 08/21/2024 11:49:09 Final Observation Date Value Abnormality Reference (Units ) Status Alk Phos 08/21/2024 11:49:09 117 31-125 (U/L) Final INTESTINAL ISOENZYMES 08/21/2024 11:49:09 6 1-24 (%) Final Alk Phos, bone / Alk Phos, total 08/21/2024 11:49:09 26 Below low normal 28-66 (%) Final LIVER ISOENZYMES 08/21/2024 11:49:09 68 25-69 (%) Final Alk Phos, placental / Alk Phos, total 08/21/2024 11:49:09 0 <=0 (%) Final Alk Phos, macrohepatic / Alk Phos, total 08/21/2024 11:49:09 0 <=0 (%) Final Alkaline phosphatase isoenzymes [Interpretation] in Serum or Plasma Narrative 08/21/2024 11:49:09 DNR Final Test Performed at:
[facility]
[id number]
[place] [address]
El Otero M.D., Ph.D.,Director of Laboratories Performing Location
== END 2024-08-27 11:03 | disposition home or self-care (01) ==
LOC: 2S 22:42 → SUATTDRO 22:42 → INTOOBSV 22:42 → SUATTDRO 22:50

== ENCOUNTER 2024-09-09 13:41 | Inpatient (IN) ==
--- NOTE | 2024-09-09 14:28 | Emergency Department Note ---
History of Present Illness General Chief complaint: Vertigo Stated complaint: NEUROLOGICAL, EYESIGHT, HEARING, DIZZY Time Seen by Provider: 09/09/24 14:11 History of Present Illness Maximum Pain Intensity: 10 This is a 38-year-old female that presents to the emergency department via private vehicle with complaints of "vision change, dizziness,". The patient notes that for the past 8 weeks she has been experiencing slow worsening progression of vision change, head pressure, headache, feeling "disconnected from body" as well as feeling "". She describes her vision change as "sharp and surreal". Patient notes that at times she feels like lights are too bright and that other times too dark. Patient does note she is currently wearing a heart monitor. She denies any recent head trauma or injury. No tobacco use. No alcohol use. No drug use. Patient does note recent admission and psychological assessment, but does not feel that today's presentation is psychological in nature. She denies any SI or HI. She states that she had an appointment today with PCP and was referred here for further evaluation and management. Home Medications Medication Instructions Recorded Confirmed Type escitalopram oxalate 10 mg tablet 5 mg PO PM 08/02/24 09/09/24 History melatonin 5 mg tablet 5 mg PO HS 08/25/24 09/09/24 History desloratadine 5 mg tablet 5 mg PO PM 09/09/24 09/09/24 History fluticasone propionate 50 2 spray intranasal DAILY PRN 09/09/24 09/09/24 History mcg/actuation nasal allergies spray,suspension magnesium oxide 250 mg PO HS 09/09/24 09/09/24 History Allergies Allergy/AdvReac Type Severity Reaction Status Date / Time amoxicillin Allergy Severe ANAPHYLAXIS Verified 08/25/24 17:31 clavulanic acid Allergy Severe ANAPHYLAXIS Verified 08/25/24 17:31 doxycycline Allergy Intermediate Rash Verified 08/25/24 17:31 fish derived Allergy Intermediate Hives Verified 08/25/24 17:31 metronidazole Allergy Intermediate rash Verified 08/25/24 17:31 sulfamethoxazole Allergy Intermediate tongue Verified 08/25/24 17:31 [From Bactrim] swelling trimethoprim [From Bactrim] Allergy Intermediate tongue Verified 08/25/24 17:31 swelling coffee (Coffea arabica) Allergy Unknown per Verified 08/25/24 17:31 allergy testing Penicillins Allergy Unknown per Verified 08/25/24 17:31 allergy testing Past Med/Surg History Problem List (Updated 09/10/24 @ 00:03 by Leslye Ruiz) Dizziness (Acute) Abnormal brain MRI (Acute) Prolonged QT interval Pain Major depressive disorder, recurrent episode with anxious distress Sinus pressure (Acute) Abdominal pain (Acute) Anxiety (Acute) Dizziness (Acute) Chest pain (Acute) Cervical radiculopathy Dizziness (Acute) Headache (Acute) Vivid dream Somatic symptom disorder Chest pain (Acute) Pseudotumor cerebri (Acute) Dermatomyositis Small fiber neuropathy Headache Hypokalemia Persistent postural-perceptual dizziness Idiopathic intracranial hypertension Sinus tachycardia Palpitations Chest pain (Acute) POTS (postural orthostatic tachycardia syndrome) (Acute) Epigastric abdominal pain (Acute) Weakness (Acute) Change in mental status POTS (postural orthostatic tachycardia syndrome) (Acute) DVT (deep vein thrombosis) in Seizure-like activity Paresthesia Severe uncontrolled hypertension Vision changes High cholesterol GERD (gastroesophageal reflux disease) Anxiety and depression History of bulimia Insomnia Vitamin D deficiency Seasonal allergies Vitamin B12 deficiency Migraine Ankylosing spondylitis Degenerative disc disease Exercise-induced asthma Morbid obesity Thoracic disc disease Dysphagia Prediabetes Eustachian tube dysfunction Near syncope Inappropriate sinus tachycardia Abnormal EEG Hypersomnia Dietary counseling and surveillance Metabolic syndrome Pericarditis Medical History Headache Sinus tachycardia Chest pain Adjustment disorder with anxious mood Chest pain Fatigue COVID-19 Change in vision Dizziness History of pre-eclampsia History of bradycardia DVT (deep venous thrombosis) Morbid obesity with BMI of 40.0-44.9, adult Iron deficiency anemia Heart palpitations Surgical History History of esophagogastroduodenoscopy (EGD) History of wisdom tooth extraction History of cardiac cath 06/2015 @ [facility] [place]--d/t chest pain, normal no stents History of cholecystectomy Family History (System 10/17/22 @ 08:26 by Sophia Benavidez) Father Hypertension Mother Diabetes Grandfather (Maternal) Diabetes Coronary heart disease Myocardial infarction Congestive heart failure Colorectal cancer Grandfather (Paternal) Diabetes Coronary heart disease Myocardial infarction, Onset Age: 50 Grandmother (Paternal) Pulmonary emphysema Sick sinus syndrome Diabetes Pacemaker Grandmother (Maternal) Family history of diabetes mellitus Aunt Pulmonary emphysema Family/Other Myocardial infarction, Onset Age: 37 Coronary heart disease Uncle Stroke Other Asthma Lymphoma No family history of adverse response to anesthesia Denies family history of Ovarian cancer Prostate cancer Breast cancer Social History Smoking Status: Former smoker Tobacco Type: Cigarettes Second Hand Exposure: No; Do You Dip or Chew Tobacco: No; Hx Alcohol Use: No Hx Substance Use: No Preferred Language: Czech Communication Ability: Effective Communication Tools: Other Visual Impairment: No Limitations Hearing Ability: Normal 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: No Beliefs That Will Affect Care: None marital status: Current Living Situation: Family Current Living Situation Comment: Lives with and daughter current occupational status: unemployed How many Children do You have: 1 Feels Safe at Home: Yes Safety Concerns: Feels Safe At This Time Childhood Exposure to Second-Hand Smoke: Yes Diet: regular caffeine: No during the past year weight has: remained stable Dental Care, Regularly: Yes Physical Activity Frequency: 5-6 Times per Week Seatbelt Use: never Sunscreen Use: Yes Gender Identity: Female Assistive Devices: Glasses Review of Systems A total of 10 systems reviewed and were otherwise negative Physical Exam Vital Signs Vital Signs - 24 hr 09/09/24 13:58 09/09/24 14:45 09/09/24 14:45 Temperature 36.6 C Temperature Source Skin Pulse Rate 98 H 89 Pulse Rate [Apical] 87 Respiratory Rate 19 18 17 Respiratory Effort / Characteristics Non-Labored Spontaneous Respiratory Depth Normal Respiratory Pattern Regular Blood Pressure 159/78 H Blood Pressure [Right Arm] 136/90 Blood Pressure Mean 105 Blood Pressure Mean [Right Arm] 105 Blood Pressure Position [Right Arm] Pulse Oximetry 95 94 94 Oxygen Delivery Method Room Air Room Air Room Air Sepsis Recent Fever Within 48 Hours No Sepsis New/Unexplained Change in Mental Status N/A Sepsis Action Taken by Nursing No Action Required 09/09/24 16:59 09/09/24 17:06 09/09/24 17:06 Temperature Temperature Source Pulse Rate 91 H 93 H Pulse Rate [Apical] 91 H Respiratory Rate 17 18 Respiratory Effort / Characteristics Non-Labored Spontaneous Respiratory Depth Normal Respiratory Pattern Regular Blood Pressure Blood Pressure [Right Arm] 154/110 H Blood Pressure Mean Blood Pressure Mean [Right Arm] 124 Blood Pressure Position [Right Arm] Semi-fowlers Pulse Oximetry 96 97 Oxygen Delivery Method Room Air Room Air Sepsis Recent Fever Within 48 Hours Sepsis New/Unexplained Change in Mental Status Sepsis Action Taken by Nursing 09/09/24 17:21 Temperature Temperature Source Pulse Rate 96 H Pulse Rate [Apical] Respiratory Rate 16 Respiratory Effort / Characteristics Respiratory Depth Respiratory Pattern Blood Pressure Blood Pressure [Right Arm] Blood Pressure Mean Blood Pressure Mean [Right Arm] Blood Pressure Position [Right Arm] Pulse Oximetry Oxygen Delivery Method Sepsis Recent Fever Within 48 Hours Sepsis New/Unexplained Change in Mental Status Sepsis Action Taken by Nursing VITAL SIGNS - Vital signs and nursing notes were reviewed. Stable and afebrile. GENERAL -38-year-old female appearing her stated age who is in no acute distress. Communicates well with provider and answers questions appropriately. SKIN - Without rashes. No meningeal or petechial rash. HEAD - NC/AT. EYES - PERRL with EOMI bilaterally. Sclera anicteric. EARS - No deformities of external structures noted on gross examination bilaterally. External auditory canals without discharge or otorrhea. Tympanic membranes pearly beltran without retraction or bulging. No fluid or purulent material visualized behind the TM. Handle of malleus, umbo, cone of light, pars tensa/flaccid all easily visualized. NOSE - Midline and without cyanosis. No epistaxis or purulent drainage noted. Septum midline without deviation or septal hematoma noted. MOUTH/OROPHARYNX - Without perioral cyanosis. Buccal mucosa pink and moist and without leukoplakia. Tongue midline with equal elevation of palate bilaterally. No tonsillar hypertrophy, erythema, or exudates noted. Good dentition noted. NECK - Neck with FROM. No nuchal rigidity. LUNGS - Chest wall symmetric without accessory muscle use, intercostals retractions, or central cyanosis. Normal vesicular breath sounds CTA B/L. No wheezes, rales, or rhonchi appreciated. CARDIAC - RRR ABDOMEN - Abdominal contour normal without pulsations or visible masses. BS normoactive all four quadrants. No tenderness, palpable masses, hepatosplenomegaly, or ascites noted. EXTREMITIES - No clubbing or peripheral cyanosis. +5/5 strength noted in UE/LE bilaterally. NEUROLOGIC - Cranial nerves II through XII grossly intact. PSYCH -alert, oriented and pleasant on exam Course Administered Medications Enoxaparin Sodium (Enoxaparin Inj 40 Mg/0.4 Ml Syr) 40 mg SQ Q12H ANNA Stop: 10/09/24 20:59 Last Admin: 09/09/24 21:54 Dose: 40 mg Documented By: MAUREEN Escitalopram Oxalate (Escitalopram Oxalate 10 Mg Tab) 5 mg PO PM ANNA Stop: 10/09/24 20:59 Last Admin: 09/09/24 21:54 Dose: 5 mg Documented By: MAUREEN Loratadine (Loratadine 10 Mg Tab) 5 mg PO PM ANNA Stop: 10/09/24 20:59 Last Admin: 09/09/24 21:54 Dose: 5 mg Documented By: MAUREEN Magnesium Oxide (Magnesium Oxide 400 Mg Tab) 400 mg PO HS ANNA Stop: 10/09/24 20:59 Last Admin: 09/09/24 21:54 Dose: 400 mg Documented By: MAUREEN Melatonin (Melatonin 3 Mg Tab) 6 mg PO HS ANNA Stop: 10/09/24 20:59 Last Admin: 09/09/24 21:54 Dose: 6 mg Documented By: MAUREEN Medical Decision Making Laboratory Data 09/09/24 14:43 09/09/24 14:43 Lab Results 09/09/24 Range/Units 14:43 WBC 10.65 (4.8-10.8) K/ul RBC 4.32 (4.20-5.40) M/uL Hgb 12.5 (12.0-16.0) g/dl Hct 38.6 (37.0-47.0) % MCV 89.4 (80.0-100.0) fL MCH 28.9 (25.0-34.0) pg MCHC 32.4 (32.0-36.0) g/dL RDW Std Deviation 45.0 (36.4-46.3) fL RDW Coeff of Yash 13.8 (11.5-14.5) % Plt Count 276 (130-400) K/uL MPV 9.8 (9.4-12.4) fL Immature Gran % (Auto) 0.6 % Neut % (Auto) 74.2 % Lymph % (Auto) 18.2 % [place] % (Auto) 4.7 % Eos % (Auto) 2.0 % Baso % (Auto) 0.3 % Neut # (Auto) 7.91 H (1.40-6.50) K/uL Lymph # (Auto) 1.94 (1.20-3.40) K/uL [place] # (Auto) 0.50 (0.11-0.59) K/uL Eos # (Auto) 0.21 (0.00-0.50) K/uL Baso # (Auto) 0.03 (0.00-0.20) K/uL Immature Gran # (Auto) 0.06 (0.01-0.20) K/uL PT 9.8 (9.0-12.0) Seconds INR 0.9 (0.9-1.1) APTT 29 (21-31) Seconds PTT Ratio 1.1 Sodium 136 (136-145) mmol/L Potassium 4.2 (3.5-5.1) mmol/L Chloride 103 (98-107) mmol/L Carbon Dioxide 27 (21-32) mmol/L Anion Gap 6 (3-11) BUN 10 (6-23) mg/dl Creatinine 0.60 (0.6-1.2) mg/dl Est Cr Clr Drug Dosing 160.5 ml/min eGFR 119.23 BUN/Creatinine Ratio 16.7 (10-20) Glucose 93 (70-99(Fasting)) mg/dl Calcium 9.4 (8.6-10.3) mg/dl Magnesium 2.0 (1.7-2.4) mg/dl Total Bilirubin 0.4 (0.2-1.0) mg/dl AST 19 (13-39) U/L ALT 16 (7-52) U/L Alkaline Phosphatase 104 (34-104) U/L Total Protein 7.2 (6.0-8.3) gm/dl Albumin 4.0 (3.4-5.0) gm/dl Globulin 3.2 (2.5-4.0) gm/dl Albumin/Globulin Ratio 1.3 (0.9-2) TSH 2.061 (0.300-4.500) uIu/ml HCG, Qual Negative (Negative) Urine Color Yellow Urine Appearance Clear (Clear) Urine pH 6.5 (4.5-7.5) Ur Specific Aston 1.017 (1.000-1.030) Urine Protein Negative (Negative) Urine Glucose (UA) Negative (Negative) Urine Ketones Negative (Negative) Urine Blood Negative (Negative) Urine Nitrite Negative (Negative) Urine Bilirubin Negative (Negative) Urine Urobilinogen Negative (Negative) Ur Leukocyte Esterase Negative (Negative) Imaging Data Radiologist's Impression: Brain MRI 09/09/24 14:30 Clinical History: Dizziness Technique: Multiple T1 and T2-weighted magnetic resonance images were obtained of the brain without gadolinium contrast Comparison is made to the head CT dated 08/25/2024 Findings: There is no sign of acute infarction with normal-appearing diffusion weighted images. There are areas of increased T2 signal intensity within the centrum semiovale bilaterally. There is a 9 mm oval area of high T2 and low T1 signal intensity in the right cerebellar hemisphere that may be due to an old infarct. There are also suspected small old infarcts of the centrum semiovale bilaterally. No definite mass lesion is seen on this noncontrast study. There is no intracranial hemorrhage or other fluid collection. No midline shift or other form of herniation is seen. There is no hydrocephalus. Normal flow-voids are seen within the arteries of the [id number]. The orbits and paranasal sinuses appear normal. The mastoid air cells appear clear. Impression: 1. Mild white matter abnormalities involving the centrum semiovale bilaterally. This could be due to chronic small vessel ischemic disease, though multiple sclerosis is also possible 2. 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 Review was performed of triage nursing notes and vital signs. I did review pertinent previous visits and patient history. After obtaining a thorough history and physical examination the above work up was performed. Patient presents to us today for evaluation of ongoing above-stated complaints. The patient on my assessment is clinically well-appearing and nontoxic. No focal deficits on examination. NIHSS is 0. No evidence of meningitis or encephalitis. Lungs are clear to auscultation. I did check bilateral ocular pressure via the puff tonometer and this was with a pressure in the right eye of 22, left eye 21. Options of care were discussed with the patient. IV access was established. Labs were drawn. I did review the patient's recent visits and imaging. Patient does not wish to have any CT imaging but is amenable to MRI of the brain to further assess symptoms. I will note she has had recent MRIs as well. There is no leukocytosis or concerning anemia. Coags normal. No emergent metabolic disturbance. TSH reveals euthyroid state. hCG negative. Urinalysis negative. Patient was reevaluated several times and just before going over to MRI suite for the brain scan, patient noted that she does not feel safe going home. She states that she cannot go home feeling like she currently is feeling. I offered the patient fluids, I even considered meclizine/similar and the patient declined. I consider medicine such as Ativan and the patient showed me a recent gene test where she notes a potential interaction with this medication. MRI of the brain resulted and per radiologist there are some white matter abnormalities involving the centrum semiovale bilaterally potentially due to chronic small vessel ischemic disease versus multiple sclerosis. There is also comment of small old infarcts involving the centrum semiovale and right cerebellar hemisphere. This appears to be a new finding compared to previous however the patient has no focal deficits on my examination. I reviewed these findings with the patient but informed her that further evaluation is needed to assess these potential findings. Case discussed with the hospitalist service. Please refer to further documentation regarding her stay GCS: 15 In the evaluation and treatment of this patient the following differential diagnoses were entertained: CVA, TIA, electrolyte disturbance, psychological abnormality, arrhythmia, among others Impression & Plan Abnormal brain MRI, Dizziness Discharge Plan Visit Data Chief Complaint: Vertigo Stated Complaint: NEUROLOGICAL, EYESIGHT, HEARING, DIZZY ED Provider: Dorian Mca ED Midlevel Provider: Jean-Paul Steward Discharge Problem: Abnormal brain MRI, Dizziness Patient Disposition: Admitted As Inpatient Discharge Instructions Interventions: ED Discharge Assessment Last Done: 09/09/24 20:18
[2024-09-09 15:08] LABS: Basophils # (auto) 0.03 K/uL (0.00-0.20); Basophils % (auto) 0.3 %; Eosinophils # (auto) 0.21 K/uL (0.00-0.50); Hematocrit (blood only) 38.6 % (37.0-47.0); Hemoglobin 12.5 g/dl (12.0-16.0); Immature Granulocytes # (auto) 0.06 K/uL (0.01-0.20); Immature Granulocytes % (auto) 0.6 %; Lymphocytes # (auto) 1.94 K/uL (1.20-3.40); Lymphocytes % (auto) 18.2 %; Mean Corpuscular Hemoglobin 28.9 pg (25.0-34.0); Mean Corpuscular Hgb Conc 32.4 g/dL (32.0-36.0); Mean Corpuscular Volume 89.4 fL (80.0-100.0); Mean Platelet Volume 9.8 fL (9.4-12.4); Monocytes % (auto) 4.7 %; Neutrophils # (auto) 7.91 K/uL (1.40-6.50); Neutrophils % (auto) 74.2 %; Platelet Count 276 K/uL (130-400); RDW Coefficient of Variation 13.8 % (11.5-14.5); Red Blood Count 4.32 M/uL (4.20-5.40); White Blood Count 10.65 K/ul (4.8-10.8)
[2024-09-09 15:32] LABS: Appearance Urine Clear (Clear); Bilirubin Urine Negative (Negative); Blood Urine Negative (Negative); Color Urine Yellow; Glucose Urine UA Negative (Negative); Ketones Urine Negative (Negative); Leukocyte Esterase Urine Negative (Negative); Nitrite Urine Negative (Negative); Protein Urine Negative (Negative); Specific Gravity Urine 1.017 (1.000-1.030); Urobilinogen Urine Negative (Negative); pH Urine 6.5 (4.5-7.5)
[2024-09-09 15:33] LABS: Albumin Globulin Ratio 1.3 (0.9-2); BUN Creatinine Ratio 16.7 (10-20); Bilirubin,Total 0.4 mg/dl (0.2-1.0); Calcium 9.4 mg/dl (8.6-10.3); Creatinine Clr Calc Pharmacy 160.5 ml/min; Globulin 3.2 gm/dl (2.5-4.0); Potassium 4.2 mmol/L (3.5-5.1); Total Protein 7.2 gm/dl (6.0-8.3)
[2024-09-09 15:38] LABS: Pregnancy Test, Serum Negative (Negative)
[2024-09-09 15:47] LABS: Thyroid Stimulating Hormone 2.061 uIu/ml (0.300-4.500)
[2024-09-09 15:48] LABS: INR 0.9 (0.9-1.1); Partial Thromboplastin Ratio 1.1; Partial Thromboplastin Time 29 Seconds (21-31); Prothrombin Time 9.8 Seconds (9.0-12.0)
--- NOTE | 2024-09-09 17:12 | Magnetic Resonance Report ---
Clinical History: Dizziness Technique: Multiple T1 and T2-weighted magnetic resonance images were obtained of the brain without gadolinium contrast Comparison is made to the head CT dated 08/25/2024 Findings: There is no sign of acute infarction with normal-appearing diffusion weighted images. There are areas of increased T2 signal intensity within the centrum semiovale bilaterally. There is a 9 mm oval area of high T2 and low T1 signal intensity in the right cerebellar hemisphere that may be due to an old infarct. There are also suspected small old infarcts of the centrum semiovale bilaterally. No definite mass lesion is seen on this noncontrast study. There is no intracranial hemorrhage or other fluid collection. No midline shift or other form of herniation is seen. There is no hydrocephalus. Normal flow-voids are seen within the arteries of the [id number]. The orbits and paranasal sinuses appear normal. The mastoid air cells appear clear. Impression: 1. Mild white matter abnormalities involving the centrum semiovale bilaterally. This could be due to chronic small vessel ischemic disease, though multiple sclerosis is also possible 2. 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
--- NOTE | 2024-09-09 17:58 | History & Physical Report ---
Date of Service September 09, 2024 Assessment & Plan (1) Abnormal brain MRI: Plan Assessment/plan Vision issues Dizziness Abnormal MRI finding,? 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 MRI brain earlier on 08/03no acute finding Follows up with neurology as outpatient; workup being done for idiopathic intracranial hypertension. Will obtain neurology consultation to evaluate on the MRI findings;Discussed wit h patient; plan to hold off additional imaging until MRI brain is reviewed by neurology in a.m. PT OT evaluation Obtain TSH, vitamin B12, lipid panel in a.m. Continue other home meds Full code DVT prophylaxis Lovenox Time spent evaluating patient, direct bedside care, chart review, placing orders, interpretation of diagnostic studies, discussion with consultants, patient, and family members, as well as other required patient management activities is 60 minutes Please note the above document was generated using voice recognition software. It may contain grammatical, syntax or spelling errors. Any formal questions or concerns about the content, text or information contained within the body of this dictation should be directly addressed to the provider for clarification History of Present Illness Chief Complaint: Vision changes for several weeks Ear fullness for several weeks Dizziness for several weeks Primary Care Provider: Ludy Santiago MD History of provide interviewed the patient and chart review Past medical history of psoriasis, HLA-B27 positive, PCOS, mild intermittent asthma, essential hypertension, GERD, vitamin D deficiency, fibromyalgia, apical migraine, atypical chest pain, prolonged QT interval, eustachian tube dysfunction Elevated recently earlier in August with multiple complaint; unremarkable workup during the hospitalization Patient was recently seen with complaints of vision issues. Patient reports disorganized, fluctuating vision change; Reports intermittent blurring. She also reports ear fullness, periodic vertigo and dizziness as well. She reports that the symptoms has been going on for about 6 weeks She reports abdominal discomfort which has improved compared to past few weeks She denies any focal weakness, fever, chills, chest pain or urinary symptoms She was also seen by her primary care doctor recently for similar issues. On presentation to ED, she is afebrile, normotensive and saturating well on room air. Lab work in the ED was unremarkable MRI brain showed mild white matter abnormalities involving the centrum semiovale bilaterally; due to chronic small vessel ischemic disease; though multiple sclerosis is possible. 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 Patient had MRI done earlier in July which did not show those findings. Patient was admitted to the medical floor for further evaluation Allergies Allergy/AdvReac Type Severity Reaction Status Date / Time amoxicillin Allergy Severe ANAPHYLAXIS Verified 08/25/24 17:31 clavulanic acid Allergy Severe ANAPHYLAXIS Verified 08/25/24 17:31 doxycycline Allergy Intermediate Rash Verified 08/25/24 17:31 fish derived Allergy Intermediate Hives Verified 08/25/24 17:31 metronidazole Allergy Intermediate rash Verified 08/25/24 17:31 sulfamethoxazole Allergy Intermediate tongue Verified 08/25/24 17:31 [From Bactrim] swelling trimethoprim [From Bactrim] Allergy Intermediate tongue Verified 08/25/24 17:31 swelling coffee (Coffea arabica) Allergy Unknown per Verified 08/25/24 17:31 allergy testing Penicillins Allergy Unknown per Verified 08/25/24 17:31 allergy testing Home Medications Medication Instructions Recorded Confirmed Type escitalopram oxalate 10 mg tablet 5 mg PO PM 08/02/24 09/09/24 History melatonin 5 mg tablet 5 mg PO HS 08/25/24 09/09/24 History desloratadine 5 mg tablet 5 mg PO PM 09/09/24 09/09/24 History fluticasone propionate 50 2 spray intranasal DAILY PRN 09/09/24 09/09/24 History mcg/actuation nasal allergies spray,suspension magnesium oxide 250 mg PO HS 09/09/24 09/09/24 History Past Med/Surg History Problem List (Updated 09/09/24 @ 17:29 by Jean-Paul Steward PA-C) Dizziness (Acute) Abnormal brain MRI (Acute) Prolonged QT interval Pain Major depressive disorder, recurrent episode with anxious distress Sinus pressure (Acute) Abdominal pain (Acute) Anxiety (Acute) Dizziness (Acute) Chest pain (Acute) Cervical radiculopathy Dizziness (Acute) Headache (Acute) Vivid dream Somatic symptom disorder Chest pain (Acute) Pseudotumor cerebri (Acute) Dermatomyositis Small fiber neuropathy Headache Hypokalemia Persistent postural-perceptual dizziness Idiopathic intracranial hypertension Sinus tachycardia Palpitations Chest pain (Acute) POTS (postural orthostatic tachycardia syndrome) (Acute) Epigastric abdominal pain (Acute) Weakness (Acute) Change in mental status POTS (postural orthostatic tachycardia syndrome) (Acute) DVT (deep vein thrombosis) in Seizure-like activity Paresthesia Severe uncontrolled hypertension Vision changes High cholesterol GERD (gastroesophageal reflux disease) Anxiety and depression History of bulimia Insomnia Vitamin D deficiency Seasonal allergies Vitamin B12 deficiency Migraine Ankylosing spondylitis Degenerative disc disease Exercise-induced asthma Morbid obesity Thoracic disc disease Dysphagia Prediabetes Eustachian tube dysfunction Near syncope Inappropriate sinus tachycardia Abnormal EEG Hypersomnia Dietary counseling and surveillance Metabolic syndrome Pericarditis Medical History Headache Sinus tachycardia Chest pain Adjustment disorder with anxious mood Chest pain Fatigue COVID-19 Change in vision Dizziness History of pre-eclampsia History of bradycardia DVT (deep venous thrombosis) Morbid obesity with BMI of 40.0-44.9, adult Iron deficiency anemia Heart palpitations Surgical History History of esophagogastroduodenoscopy (EGD) History of wisdom tooth extraction History of cardiac cath 06/2015 @ [facility]--d/t chest pain, normal no stents History of cholecystectomy Family History (System 10/17/22 @ 08:26 by Sophia Benavidez) Father Hypertension Mother Diabetes Grandfather (Maternal) Diabetes Coronary heart disease Myocardial infarction Congestive heart failure Colorectal cancer Grandfather (Paternal) Diabetes Coronary heart disease Myocardial infarction, Onset Age: 50 Grandmother (Paternal) Pulmonary emphysema Sick sinus syndrome Diabetes Pacemaker Grandmother (Maternal) Family history of diabetes mellitus Aunt Pulmonary emphysema Family/Other Myocardial infarction, Onset Age: 37 Coronary heart disease Uncle Stroke Other Asthma Lymphoma No family history of adverse response to anesthesia Denies family history of Ovarian cancer Prostate cancer Breast cancer Social History Smoking Status: Never smoker Tobacco Type: Cigarettes Second Hand Exposure: No; Do You Dip or Chew Tobacco: No; Hx Alcohol Use: Yes Alcohol type: beer Hx Substance Use: No Preferred Language: Albanian Communication Ability: Effective Communication Tools: Other Visual Impairment: No Limitations Hearing Ability: Normal Mixer Driver Required: No Beliefs That Will Affect Care: None marital status: Current Living Situation: Family and Significant Other Current Living Situation Comment: Lives with and daughter current occupational status: unemployed How many Children do You have: 1 Feels Safe at Home: Yes Childhood Exposure to Second-Hand Smoke: Yes Diet: regular caffeine: No during the past year weight has: remained stable Dental Care, Regularly: Yes Physical Activity Frequency: 5-6 Times per Week Seatbelt Use: never Sunscreen Use: Yes Gender Identity: Female Assistive Devices: None Physical Exam Physical Exam: On physical examination; Constitutional: WD/WN, vitals as above, NAD, sitting up in bed, pleasant, conversing easily Respiratory: normal respiratory effort, lungs clear to auscultation, no wheeze, rales, rhonchi. Normal insp/exp effort, no accessory muscle use Cardiovascular: RRR, no murmur, no edema Vessels: no JVD or carotid bruit Chest: normal inspection of chest Abdomen: normal bowel sounds, soft, nontender, no hepatosplenomegaly Musculoskeletal: no cyanosis or clubbing, extremities motor strength 5/5 Skin: no rashes, warm and dry normal turgor Neurologic: PERRL, EOMI, accommodation nl, no face palsy, no dysarthria CN's II- XI intact bilaterally and moves all extremities. No focal weakness Results & Data Results & Data Vital Signs (Past 12 Hours) Vital Signs Temp Pulse Pulse Resp BP BP Pulse Ox 09/09/24 17:06 91 H 09/09/24 16:59 91 H 17 154/110 H 96 09/09/24 14:45 89 17 94 09/09/24 14:45 87 18 136/90 94 09/09/24 13:58 36.6 C 98 H 19 159/78 H 95 O2 Del Method 09/09/24 17:06 09/09/24 16:59 Room Air 09/09/24 14:45 Room Air 09/09/24 14:45 Room Air 09/09/24 13:58 Room Air Code Status & VTE Plan VTE Prophylaxis Plan VTE Prophylaxis will be ordered: Yes
[2024-09-09] MEDS ORDERED: FLUTICASONE PROPIONATE NA SPR 16 GM BTL PRN (20:18)
[2024-09-09] MEDS ORDERED: MAGNESIUM HYDROXIDE SUSP 30 ML UDC PO PRN (20:18)
[2024-09-09] MEDS ORDERED: ALUMINUM/MAGNESIUM SUSP 30 ML UDC PO PRN (20:18)
[2024-09-09] MEDS ORDERED: POLYETHYLENE (MIRALAX) 17 GM PACK PO PRN (20:18)
[2024-09-09] MEDS: ESCITALOPRAM OXALATE 10 MG TAB PO SCH (21:54)
[2024-09-09] MEDS: MELATONIN 3 MG TAB PO SCH (21:54)
[2024-09-09] MEDS: ENOXAPARIN INJ 40 MG/0.4 ML SYR SQ SCH (21:54)
[2024-09-09] MEDS: MAGNESIUM OXIDE 400 MG TAB PO SCH (21:54)
[2024-09-09] MEDS: LORATADINE 10 MG TAB PO SCH (21:54)
--- OUTSIDE RECORDS SUMMARY | 2024-09-10 05:24 | External Medical Summary ---
Author Name Unknown Address Unknown Organization K01:[place] [facility] [place] [facility] [address] [facility] [address] Laboratory Report Ordering Provider Test Date Status KEVYN SANCHEZ 09/07/2024 14:33:13 Final Observation Date Value Abnormality Reference (Units ) Status Hepatitis B virus core Ab [Presence] in Serum 09/07/2024 14:33:13 Negative Negative Final Performing Location [place] [facility] [place] [address] [facility] [address]
--- OUTSIDE RECORDS SUMMARY | 2024-09-10 05:24 | External Medical Summary ---
Author Name Unknown Address Unknown Organization K01[place] [facility] [place] [address] [place] [id number] Laboratory Report Ordering Provider Test Date Status KEVYN SANCHEZ 09/07/2024 14:33:13 Final Observation Date Value Abnormality Reference (Units) Status PARAPROTEIN NORMAL/ABNORMAL 09/07/2024 14:33:13 Normal Normal Final Immunofixation for Serum or Plasma 09/07/2024 14:33:13 No monoclonal gammopathy detected. Final Performing Location [facility] [facility] [place] [address] [place] [id number]
--- OUTSIDE RECORDS SUMMARY | 2024-09-10 05:24 | External Medical Summary ---
Author Name Unknown Address Unknown Organization [id number][place] [facility] [place] [address] [facility] [address] Laboratory Report Ordering Provider Test Date Status JERRY ALMANZAR 09/07/2024 14:33:13 Final Observation Date Value Abnormality Reference (Units ) Status MYCODE SPECIMEN-SST 09/07/2024 14:33:13 Freezing of extracted DNA, whole blood and/or serum. Final Performing Location [place] [facility] [place] [address] [facility] [id number]
--- OUTSIDE RECORDS SUMMARY | 2024-09-10 05:24 | External Medical Summary | Summary of Care ---
Author Name Unknown Organization [facility] Address [address] [place] [address] Phone [phone] Care Team Providers Care Bi Data Modeler Name Role Phone Ludy Bob MD Primary Care Pr ovider Reason for Visit * Reason Comments Follow Up Encounter Details Date Type Department Care Team (Late st Contact Info) Description 09/07/2024 5:00 PM EDT Office Visit Family Medicine [address] [phone] Ludy Bob MD [address] [place] [address] [place] [address] Dysfunction of both eustachian tubes*; Dysautonomia-like disorder; Prolonged QT interval; Palpitations; Dizziness; Chronic fatigue Allergies Active Allergy Reactions Criticality Noted Date [...] as of this encounter (statuses as of 09/08/2024) Medications melatonin 1 MG Tablet Take 3 [...] THE MORNING 90 Tablet 3 5 Active Additional Information Patient taking differently: 5 mg Oral QPM-1999, TAKE 1 TABLET BY MOUTH EVERY DAY IN THE MORNING, Reported on 09/07/2024 LORazepam 0.5 MG Oral Tablet (Ativan) Take 1 Tablet by mouth every 8 hours as needed for Anxiety. 45 Tablet Active Olopatadine HCl 0.1 % Ophthalmic Solution (Nelson) Instill 1 Drop into both eyes every morning. Active documented as of this encounter (statuses as of 09/08/2024) Active Problems Problem Noted Date Diagnosed Date PCOS (polycystic ovarian syndrome) 09/01/2024 Chronic fatigue 09/01/2024 TINA (generalized anxiety disorder) 07/21/2024 Prolonged QT [...] as of this encounter (statuses as of 09/08/2024) Resolved Problems Problem Noted Date Diagnosed Date [...] as of this encounter (statuses as of 09/08/2024) Immunizations Name Administration Dates Next Due Hepatitis [...] Answer Date Recorded PHQ Adult Total Score 2 08/28/2024 Hunger Vital Sign Answer Date Recorded Within the past 12 months, y ou worried that your food would run out before you got the money to buy more. Never true 08/29/19 25 Within the past 12 months, t he food you bought just didn't last and you didn't have money to get more. Never true 08/28/2024 Childcare Answer Date Recorded Do you feel overwhelmed with taking care of a child, family member or friend? No 08/28/2024 Does your family need help f inding childcare? (Household - for ages 0-17 years) Not on file 08/28/2024 Clothing Answer Date Recorded Have you been unable to get clothing when it was really needed? No 08/28/2024 Is your family able to get c lothes or diapers when needed? (Household - for ages 0-17 years) Not on file 08/28/2024 Personal Safety Answer Date Recorded Do you feel unsafe or have concerns for your saf ety? No 08/28/2024 Do you have concerns for you r family's safety? (Household - for ages 0-17 years) Not on file 08/28/2024 Utilities Answer Date Recorded Do you have trouble paying y our heating, water, or electric bill? No 08/28/2024 Is your family able to pay t he heat, water, or electric bill? (Household - for ages 0-17 years) Not on file 08/28/2024 Does your family have access to good internet? (Household - for ages 0-17 years) Not on file 08/28/2024 Employment Status Answer Date Recorded Are you unemployed or without regular income? No 08/28/2024 Does the household have a re gular source of income? (Household - for ages 0-17 years) Not on file 08/28/2024 Social Connections Answer Date Recorded How often do you feel lonely or isolated from th ose around you? Never 08/28/2024 Financial Resource Strain Answer Date R ecorded Do you have any trouble payi ng for your medications, or do you think you might in the future? No 08/28/2024 Does your family have troubl e paying for medicine? (Household - for ages 0-17 years) Not on file 08/28/2024 Transportation Needs Answer Date Record ed Do you have trouble getting a ride to medical visits or work? (Adult - for ages 18 years and over) Not on file 08/28/2024 Does your family have a hard time getting a ride to doctors visits? (Household - for ages 0-17 years) Not on file 08/28/2024 Has lack of transportation k ept you from medical appointments, meetings, work, or from getting things needed for daily living? Check all that apply. No 08/28/2024 Do you (or your family) have trouble finding or paying for a ride (transportation)? (Household - for ages 0-17 years) Not on file 08/28/2024 Housing Stability Answer Date Recorded Do you currently live in a s helter or have no steady place to sleep at night? No 08/28/2024 Do you think you are at risk of becoming homeless? (Adult - for ages 18 years and over) Not on file 08/28/2024 Does your family worry about paying for your home or becoming homeless? (Household - for ages 0-17 years) Not on file 0 08/28/2024 Are you homeless or worried that you might be in the future? No 08/28/2024 Are you (or your family) suzanne eless or worried that you might be in the future? (Household - for ages 0-17 years) Not on file Food Insecurity Answer Date Recorded Within the past 12 months, y ou worried that your food would run out before you got the money to buy more. Never true 08/29/19 25 Within the past 12 months, t he food you bought just didn't last and you didn't have money to get more. Never true 08/28/2024 Do you need food for this week? No 08/28/2024 Comments No Sex and Gender Information Value Date Recorded Sex Assigned at Female 07/24/2023 9:15 AM EST Legal Sex Female 5:59 AM EST Gender Identity Female 07/24/2023 9:15 AM EST Sexual Orientation Straight 08/09/2024 10 :04 AM EST documented as of this encounter Last Filed Vital Signs Vital Sign Reading Time Taken Comments Blood Pressure 130/87 09/07/2024 2:56 PM EDT Pulse 104 09/07/2024 2:47 PM EDT Temperature 35.8 C (96.4 F) 09/07/2024 2:47 PM ED T Respiratory Rate - - Oxygen Saturation 95% 09/07/2024 2:47 PM EDT Inhaled Oxygen Concentration - - Weight 121.2 kg (267 lb 4.8 oz) 09/07/2024 2:47 PM EDT Height 156.8 cm (5' 1.75") 09/07/2024 2:47 PM ED T Body Mass Index 49.29 09/07/2024 2:47 PM EDT documented in this encounter Functional Status * Are you deaf or do you have serious difficulty hearing? Answer Date of Assessment Author No 02/15/2021 1:34 AM EDT Kaur Marx RN * Are you blind or do you have serious difficulty seeing, even when wearing glasses? Answer Date of Assessment Author No 02/15/2021 1:34 AM RODGERT Kaur Marx RN * Do you have serious difficulty walking or climbing stairs? (5 years old or older) Answer Date of Assessment Author Yes 02/15/2021 1:34 AM EDT Kaur Marx RN * Do you have difficulty dressing or bathing? (5 years old or older) Answer Date of Assessment Author Yes 02/15/2021 1:34 AM EDT Kaur Gustafson RN * Because of a physical, mental, or emotional condition, do you have difficulty doing errands alone such as visiting a doctors office or shopping? (15 years old or older) Answer Date of Assessment Author Yes 02/15/2021 1:34 AM RODGERT Kaur Marx RN documented as of this encounter Mental Status * Because of a physical, mental, or emotional condition, do you have serious difficulty concentrating, remembering, or making decisions? (5 years old or older) Answer Entry Date Author No 02/15/2021 1:34 AM EDT Kaur Marx RN documented in this encounter Progress Notes * Ludy Bob MD - 09/07/2024 3:08 PM EDT Images from the original note were not included. History of Present Illness Verna Remy is a 38 year old female that presents for Follow Up History of Present Illness The patient, with a history of arthritis, presents with multiple health concerns. She reports back pain, which she attributes to arthritis. 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 The patient also reports issues with vision and balance, which she suspects may be related to ear problems. She describes feeling "surreal" and having difficulty interpreting visual information, eventhough her vision is 20/20 with glasses. She also reports experiencing episodes where she feels as if the floor is shifting. She is scheduled for ear surgery next month, which she hopes will alleviate these symptoms. The patient also mentions potential sleep apnea. She reports shallow breathing during sleep and is awaiting a sleep study. She expresses concern about her blood pressure fluctuating and wonders if she might have dysautonomia. She also reports occasional chest pain. The patient expresses significant anxiety about her symptoms, to the point of fearing she will in her sleep. She is considering applying for part-time disability due to her health issues. Will see Cardio end of next month- Hari Eustachian tube surgery next month Applying for disability Physical Exam BP 130/87 | Pulse 104 | Temp 96.4 F (35.8 C) (Infrared ) | Ht 5' 1.75" (1.568 m) | Wt 267 lb 4.8 oz (121.2 kg) | SpO2 95% | BMI 49.29 kg/m | BSA 2.3 m Physical Exam Vitals and nursing note reviewed. Constitutional: General: She is not in acute distress. HENT: Head: Normocephalic and atraumatic. Mouth/Throat: Mouth: Mucous membranes are moist. Eyes: Extraocular Movements: Extraocular movements intact. Neck: Thyroid: No thyromegaly. Vascular: No carotid bruit. Cardiovascular: Rate and Rhythm: Normal rate and regular rhythm. Pulmonary: Breath sounds: Normal breath sounds. No wheezing or rhonchi. Musculoskeletal: General: Normal range of motion. Cervical back: Normal range of motion and neck supple. Right lower leg: No edema. Left lower leg: No edema. Lymphadenopathy: Cervical: No cervical adenopathy. Upper Body: Right upper body: No supraclavicular adenopathy. Left upper body: No supraclavicular adenopathy. Skin: General: Skin is warm and dry. Findings: No lesion or rash. Neurological: General: No focal deficit present. Mental Status: She is alert and oriented to person, place, and time. Psychiatric: Mood and Affect: Mood normal. Behavior: Behavior normal. Rate: 84 bpm, Rhythm: Normal sinus rhythm, Complexes: Normal morphology and duration, P Waves: Normal, ST Segment: Normal, T Waves: Normal. Qtc 430 Assessment and Plan Assessment & Plan Eustachian Tube Dysfunction ENT has scheduled ear tube surgery next month. Symptoms are likely ear-related and not life-threatening, with improvement expected post-surgery. Proceed with the scheduled surgery and reassess symptoms afterward. Anxiety Her significant anxiety is exacerbated by health issues, affecting symptom perception. She is consulting a psychiatrist and considering medication adjustments based on gene site testing. Continue psychiatric consultation, consider medication adjustments, and schedule regular follow-up visits to [facility] anxiety and overall health. Allergic Rhinitis She has been taking loratadine for years but has concerns about QT prolongation due to previous palpitations from [place]. Plan to perform an EKG to check the QTc interval. Resume loratadine if the EKG is normal and monitor for adverse effects. Possible Dysautonomia A previous tilt table test showed increased heart rate without significant BP drop, suggesting dysautonomia. Reassessment is planned post ear surgery. Reassess for dysautonomia if symptoms persist after surgery. Follow-up Regular follow-up is needed for ongoing health issues. She is applying for part- time disability dueto work impact, and a sleep study is in progress for potential sleep apnea. Schedule a follow-up visit in one week to monitor symptoms and provide support. Assist with disability paperwork as needed. Sleep study int he works Dysfunction of both eustachian tubes Dysautonomia-like disorder Prolonged QT interval - EKG; Future Palpitations - EXTERNAL EKG 8 TO 15 DAYS Dizziness; Chronic fatigue Wrap-Up Follow Up: Return in about 1 week (around 09/14/2024) for Return with Physician. | For: Return with Physician Time: I spent a total of 20-29 minutes (exact time 28 mins) on the date of service in preparation, delivery, and documentation of the care provided to Verna Remy excluding any time spent in the performance of separately billed services. Text in this note was generated using an [employer] documentation service. I discussed the use of a device to record and summarize our discussion today. All persons present during the encounter consented to its use. documented in this encounter Nursing Notes * Radha Mix CMA - 09/07/2024 2:47 PM EDT 1 week f/u. Pt report has been feeling the same since video visit last week. Had surgery scheduled for next month to have ear tubes put in. Was not able to get EKG done at [facility] ER so had lab done here today documented in this encounter Plan of Treatment Upcoming Encounters Date Type Department Care Team (Late st Contact Info) Description 09/14/2024 5:00 PM EDT Office Visit [address] [phone] Ludy Bob MD [address] [place] [address] [place] [phone] 10/09/2024 11:00 AM EDT Office Visit [address] [place] [address] Ludy Bob MD [address] [place] [address] [place] [phone] 10/19/2024 2:20 PM EDT Office Visit Sleep Disorders Ctr [facility] [address] [place] [phone] Liyah Trinidad DO [address] [place] [address] 12/07/2024 3:30 PM EDT Office Visit Rheumatology [address] [place] [phone] Marielle Roblero, JOLLY [address] [place] [address] [place] [address] 03/25/2025 12:30 PM EDT Office Visit Cardiology [address] [place] [address] Larissa Germain PA-C [address] [place] [address] 05/26/2025 9:00 AM EST Office Visit Family Medicine [address] [place] [phone] Angela Raza MD [address] [place] [address] [place] [id number] Scheduled Orders Name Type Priority Associated Diagnoses Orde r Schedule EKG EKG Routine Prolonged QT interval Expected: 09/07/2024 (Approximate), Expires: 10/08/2025 Health Maintenance Due Date Last Done Comments [...] - Td or Tdap) 03/17/2025 03/17/2015, 01/04/2005 Cervical Cancer Screening 07/02/2025 Pap Smear 07/02/2025 07/02/2022, 12/0 09/2017, 11/03/2012, Additional history exists GFR 08/22/2025 08/22/2024, 12/2024, 08/13/2024, Additional history exists Depression Monitoring 08/28/2025 08/28/2024, 024 Diabetes Screening 08/23/2027 08/22/2024, 0 08/21/2024, 08/21/2024, Additional history exists HPV (Gardasil) Vaccine Aged [...] as of this encounter Visit Diagnoses Diagnosis Dysfunction of both eustachian tubes- Primary Dysfunction of Eustachian tube Dysautonomia-like disorder Prolonged QT interval Nonspecific abnormal electrocardiogram (ECG) (EKG) Palpitations Dizziness Dizziness and giddiness Chronic fatigue Other malaise and fatigue documented in this encounter Advance Directives * [...] Power of Attor wesley? No Care Teams Bi Data Modeler Relationship Specialty Start Date End Date Ludy Bob MD [address] [place] [address] [place] [phone] PCP - General Family Medicine 08/10/24 documented as of this encounter
--- OUTSIDE RECORDS SUMMARY | 2024-09-10 05:24 | External Medical Summary ---
Author Name Unknown Address Unknown Organization [id number]:LABORATORY [facility] [place] - [address] [facility] [address] Laboratory Report Ordering Provider Test Date Status JERRY ALMANZAR 09/07/2024 14:33:13 Final Observation Date Value Abnormality Reference (Units ) Status MYCODE SPECIMEN-SST 09/07/2024 14:33:13 Freezing of extracted DNA, whole blood and/or serum. Final Performing Location LABORATORY [facility] - [address] [facility] [address]
--- OUTSIDE RECORDS SUMMARY | 2024-09-10 05:24 | External Medical Summary ---
Author Name Unknown Address Unknown Organization K01:LABORATORY [facility] [place] - [address] [place] [address] Laboratory Report Ordering Provider Test Date Status KEVYN SANCHEZ 09/07/2024 14:33:13 Final Observation Date Value Abnormality Reference (Units ) Status Hep B surface Ag 09/07/2024 14:33:13 Negative Neg ative Final Performing Location LABORATORY [facility] - [address] [place] [address]
--- OUTSIDE RECORDS SUMMARY | 2024-09-10 05:24 | External Medical Summary ---
Author Name Unknown Address Unknown Organization K01:LABORATORY [place] [address] [address] [facility] [address] Laboratory Report Ordering Provider Test Date Status KEVYN SANCHEZ 09/07/2024 14:33:13 Final Observation Date Value Abnormality Reference (Units) Status Hepatitis B virus surface Ab [Units/volume] in Serum or Plasma by Immunoassay 09/07/2024 14:33:13 >1000.0 (mIU/mL) Final Hepatitis B virus surface Ab [Presence] in Serum by Immunoassay 09/07/2024 14:33:13 Positive Final HEPATITIS B SURFACE ANTIBODY, INTERPRETATION 09/07/2024 14:33:13 Immune to Hepatitis B Virus Final POSITIVE: >=11.5 mIU/mL
INDETERMINATE: 8.5-<11.5 mIU/mL
NEGATIVE: <8.5 mIU/mL Performing Location LABORATORY [place] [address] [place] [address]
--- OUTSIDE RECORDS SUMMARY | 2024-09-10 05:24 | External Medical Summary ---
Author Name Unknown Address Unknown Organization K01:LABORATORY [address] [address] Laboratory Report Ordering Provider Test Date Status KEVYN SANCHEZ 09/07/2024 14:33:13 Final Observation Date Value Abnormality Reference (Units) Status PARAPROTEIN NORMAL/ABNORMAL 09/07/2024 14:33:13 Normal Normal Final Protein 09/07/2024 14:33:13 7.0 6.0-8.3 (g/dL) Final Albumin/Protein.total [Pure mass fraction] in Serum or Plasma by Electrophoresis 09/07/2024 14:33:13 3.48 3.30-4.40 (g/dL) Final Alpha 1 globulin/Protein.tota l [Pure mass fraction] in Serum or Plasma by Electrophoresis 09/07/2024 14:33:13 0.24 0.10-0.30 (g/dL) Final Alpha 2 globulin/Protein.tota l [Pure mass fraction] in Serum or Plasma by Electrophoresis 09/07/2024 14:33:13 1.02 Above high normal 0.60-1.00 (g/dL) Final Beta globulin/Protein.tota l [Pure mass fraction] in Serum or Plasma by Electrophoresis 09/07/2024 14:33:13 1.22 0.80-1.30 (g/dL) Final Gamma globulin/Protein.tota l [Pure mass fraction] in Serum or Plasma by Electrophoresis 09/07/2024 14:33:13 1.04 0.70-1.70 (g/dL) Final Protein Fractions [Interpretation] in Serum or Plasma by Electrophoresis Narrative 09/07/2024 14:33:13 No paraprotein detected. Final Performing Location LABORATORY [facility] [place] - [address] [facility] [place] [address]
--- OUTSIDE RECORDS SUMMARY | 2024-09-10 05:24 | External Medical Summary ---
Author Name Unknown Address Unknown Organization K01:[facility] [address] [facility] [address] Laboratory Report Ordering Provider Test Date Status ANGELESROLANDOGERHARD LYMAN 09/07/2024 14:33:13 Final Observation Date Value Abnormality Reference (Units ) Status CK 09/07/2024 14:33:13 19 Below low normal 26- 192 (U/L) Final Performing Location LABORATORY [facility] - [address] [facility] [address]
--- OUTSIDE RECORDS SUMMARY | 2024-09-10 05:24 | External Medical Summary | Summary of Care ---
Author Name Unknown Organization [facility] Address [address] [place] [address] Phone [phone] Care Team Providers Care Lubricating Engineer Name Role Phone Ludy Bob MD Primary Care Pr ovider Reason for Visit * Reason Comments Outpatient Testing Encounter Details Date Type Department Care Team (Late st Contact Info) Description 09/07/2024 2:30 PM EDT Laboratory Laboratory [address] [place] [phone] [place] [address] [employer] Other*[id number]; Dizziness; Muscle spasms of both lower extremities; Muscle weakness (generalized); HLA B27 positive; Plaque psoriasis; Ankylosing spondylitis of multiple sites in spine (HCC) Allergies Active Allergy Reactions Criticality Noted Date [...] as needed for Anxiety. 45 Tablet Active documented as of this encounter (statuses [...] Description 09/14/2024 5:00 PM EDT Office Visit [address] [phone] Ludy Bob MD [address] [place] [address] [place] [phone] 10/09/2024 11:00 AM EDT Office Visit [address] [place] [phone] Ludy Bob MD [address] [place] [address] [place] [phone] 10/19/2024 2:20 PM EDT Office Visit Sleep Disorders Ctr [facility] [address] [place] [phone] Liyah Trinidad DO [address] [place] [address] 12/07/2024 3:30 PM EDT Office Visit Rheumatology [address] [place] [phone] Marielle Roblero CRNP [address] [place] [address] [place] [address] 03/25/2025 12:30 PM EDT Office Visit Cardiology [address] [place] [address] Larissa Germain PA-C [address] [place] [address] 05/26/2025 9:00 AM EST Office Visit Family Medicine [address] [place] [phone] Angela Raza MD [address] [place] [address] [place] [address] Pending Results Name Type Priority Associated Diagnoses Date /Time MYCODE SUBSEQUENT ADULT Lab Routine [employer] Other*[id number] 09/07/2024 2:33 PM EDT BASIC METABOLIC PANEL Lab Routine Dizziness Muscle spasms of both lower extremities Muscle weakness (generalized) 09/07/2024 2:33 PM EDT CK Lab Routine Muscle spasms of both lower extremities Muscle weakness (generalized) 09/07/2024 2:33 PM EDT HEPATITIS B CORE ANTIBODIES IGG AND IGM Lab Routine HLA B27 positive Plaque psoriasis Ankylosing spondylitis of multiple sites in spine (HCC) 09/07/2024 2:33 PM EDT HEPATITIS B SURFACE ANTIGEN Lab Routine HLA B27 positive Plaque psoriasis Ankylosing spondylitis of multiple sites in spine ([facility]) 09/07/2024 2:33 PM EDT HEPATITIS B SURFACE ANTIBODY Lab Routine HLA B27 positive Plaque psoriasis Ankylosing spondylitis of multiple sites in spine ([facility]) 09/07/2024 2:33 PM EDT HEPATITIS C ANTIBODY SCREEN WITH PROGRESSION TO HEPATITIS C RNA QUANTITATIVE Lab Routine HLA B27 positive Plaque psoriasis Ankylosing spondylitis of multiple sites in spine ([facility]) 09/07/2024 2:33 PM EDT QUANTIFERON TB GOLD PLUS Lab Routine HLA B27 positive Plaque psoriasis Ankylosing spondylitis of multiple sites in spine ([facility]) 09/07/2024 2:33 PM EDT SERUM PROTEIN ELECTROPHORESIS REFLEX PROFILE Lab Routine HLA B27 positive Plaque psoriasis Ankylosing spondylitis of multiple sites in spine ([facility]) 09/07/2024 2:33 PM EDT SERUM IMMUNOFIXATION Lab Routine HLA B27 positive Plaque psoriasis Ankylosing spondylitis of multiple sites in spine ([facility]) 09/07/2024 2:33 PM EDT MYCODE SST1 Lab Routine [employer] Other*[id number] 09/07/2024 2:33 PM EDT MYCODE SST2 Lab Routine [employer] Other*[id number] 09/07/2024 2:33 PM EDT HEPATITIS C ANTIBODY Lab Routine HLA B27 positive Plaque psoriasis Ankylosing spondylitis of multiple sites in spine ([facility]) 09/07/2024 2:33 PM EDT HEPATITIS C RNA QUANTITATION REFLEX COLLECTION Lab Routine HLA B27 positive Plaque psoriasis Ankylosing spondylitis of multiple sites in spine ([facility]) 09/07/2024 2:33 PM EDT Health Maintenance Due Date Last Done Comments [...] this encounter Visit Diagnoses Diagnosis [employer] Other*[id number] Dizziness Dizziness and giddiness Muscle spasms of both lower extremities Muscle weakness (generalized) 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 No Care Teams Lubricating Engineer Relationship Specialty Start Date End Date Ludy Bob MD [address] [place] [address] [place] [phone] PCP - General Family Medicine 08/10/24 documented as of this encounter
--- OUTSIDE RECORDS SUMMARY | 2024-09-10 05:24 | External Medical Summary | Summary of Care ---
Author Name Unknown Organization [facility] Address [address] [place] [address] Phone [phone] Care Team Providers Care Sander And Buffer Name Role Phone Ludy Bob MD Primary Care Pr ovider Reason for Visit * Reason Comments Rheum Follow Up Referred by Dr Yeimi otero for " muscle spasms/pain, rash on legs,scalp" * Evaluate & Treat - Unlimited Visits (Within 10 days (routine)) - Authorized Specialty Diagnoses / Procedures Referred By Angi norman Referred To Contact Rheumatology Diagnoses HLA B27 positive Ludy Bob MD [address] [place] [address] [place] [phone] Phone: tel: fax: Referral ID Status Reason Start Date Expiration Date Visits Requested Visits Authorized [id number] Authorized Specialty Services Required 08/07/2024 [id number] Encounter Details Date Type Department Care Team (Late st Contact Info) Description 09/07/2024 2:00 PM EDT Office Visit Rheumatology [address] [place] [phone] Buddy Yañez MD [facility] [place] [id number] Ankylosing spondylitis of multiple sites in spine (HCC)*; DDD (degenerative disc disease), cervical; HLA B27 positive; Plaque psoriasis Allergies Active Allergy Reactions Criticality Noted Date [...] hours as needed for Anxiety. 45 Tablet 5 Active documented as of this encounter [...] Allergic urticaria 09/04/2005 8 Bacterial vaginosis 07/10/19 UTI (urinary tract infection) 07/10/2024 documented as [...] 06/06/2008 Smokeless Tobacco: Former Snuff Quit: 02/15/2014 Tobacco Cessation:Counseling Given: Not Answered Alcohol Use Standard Drinks/Week Comments Not Currently 0 (1 standard drink = 0.6 oz pur e alcohol) hasn't drank in years PHQ-2 Answer Date Recorded PHQ Adult Total Score 2 08/28/2024 Hunger Vital Sign Answer Date Recorded Within the past 12 months, y ou worried that your food would run out before you got the money to buy more. Never true 08/29/19 Within the past 12 months, t he [...] Sign Reading Time Taken Comments Blood Pressure - - Pulse - - Temperature 36.5 C (97.7 F) 09/07/2024 1:57 PM ED T Respiratory Rate - - Oxygen Saturation - - Inhaled Oxygen Concentration - - Weight 122 kg (269 lb) 09/07/2024 1:57 PM EDT Height - - Body Mass Index 49.6 08/07/2024 7:36 AM EST documented in this encounter Functional Status [...] documented in this encounter Progress Notes * Buddy Yañez MD - 09/07/2024 2:01 PM EDT Subjective: Patient seen today for further follow up evaluation of ? ankylosing spondylitis, HLA B27+, psoriasis. Since the last visit she reports that she has continued to do with some daily joint pains but more recently her neck symptoms worsen. She brought up an MRI on her phone from [facility] that showed some cervical disc disease and some mild stenosis. She states that in June she had worsening neck pain headaches and also had some dizziness. She was admitted to [facility] and reviewed those records. I also got into the outside chart and she did not have any updated autoimmune testing. She does have known psoriasis mainly on her scalp and lower legs. She is wondering if she has psoriatic arthritis. She does have worsening low back and thoracic pain as well. In the past we would wonder about . She does get nighttime pain and sometimes has to get up and move around feel better. No peripheralinflammatory arthritis. She has never been on any type of DMARD treatment. She is wondering about seeing Orthopedics spine surgeon for neck but nothing has been arranged. She has a long history of radha vated CRP and sed rate.. Musculoskeletal ROS: . Abnormal: back pain and neck pain . Pain scale (0-10): 5 Other ROS: . Constitutional: trouble sleeping . Head headaches . Eyes: normal . Ears, nose, throat, mouth: normal . Cardiovascular: normal . Respiratory: normal . Gastrointestinal: normal . Genitourinary: normal . Skin: psoriasis . Neurologic: dizziness All other ros reviewed and negative Social History: Social History Tobacco Use Smoking status: Former Current packs/day: 0.00 Average packs/day: 0.1 packs/day for 1 year (0.1 ttl pk-yrs) Types: Cigarettes Start date: 06/06/2007 Quit date: 06/06/2008 Years since quittin.2 Smokeless tobacco: Former Types: Snuff Quit date: 02/15/2014 Substance Use Topics Alcohol use: Not Currently Comment: hasn't drank in years Vaping/E-Cigarette Use Vaping/E-Cigarette Use Former User Quit Date 02/15/14 Vaping/E-Cigarette Substances Nicotine No Vaping/E-Cigarette Devices Current Outpatient Medications Medication Sig Dispense Refill melatonin 1 MG Tablet Take 3 Tablets by mouth at bedtime. Magnesium 250 MG Oral Tablet Take 1 Tablet by mouth in the morning. P4RC Ultra In Vitro Strip (Glucose Blood) TESTING 4-5 TIMES PER DAY 500 Strip 1 Tacrolimus 0.1 % External Ointment (Protopic) as needed. Clobetasol Propionate 0.05 % External Solution Apply to scalp and behind the ear one daily for up to two weeks. 50 mL 3 Calcipotriene 0.005 % External Cream (Calcitrene) Apply topically to affected area 2 times a day. Apply to areas of plaque psoriasis 120 g 5 Calcipotriene 0.005 % External Foam Apply topically to affected area daily. Apply to scalp 120 g 5 Betamethasone Dipropionate 0.05 % External Cream (Diprosone) Apply topically to affected area 2 times a day. To affected area. 45 g 3 Fluticasone Propionate 50 MCG/ACT Nasal Suspension (Flonase) Administer 2 Sprays into each nostril in the morning. 16 g 5 Escitalopram Oxalate 10 MG Oral Tablet (Lexapro) TAKE 1 TABLET BY MOUTH EVERY DAY IN THE MORNING (Patient taking differently: Take 0.5 Tablets by mouth every evening. TAKE 1 TABLET BY MOUTH EVERY DAYIN THE MORNING) 90 Tablet 3 LORazepam 0.5 MG Oral Tablet (Ativan) Take 1 Tablet by mouth every 8 hours as needed for Anxiety. 45 Tablet 0 No current facility-administered medications for this visit. Physical Exam: Temp 36.5 C (97.7 F) (Infrared ) | Wt 122 kg (269 lb) | BMI 49.60 kg/m | BSA 2.31 m General: alert, no distress, and well nourished Heart: regular rate & rhythm and no gallops Lungs: clear to auscultation , no rales, wheezes or rhonchi Abdomen: abdomen soft, non-tender, and normal bowel sounds Extremities: no clubbing, no cyanosis Skin: skin color, texture, turgor are normal, psoriasis noted on the lower legs, right scalp Musculoskeletal Exam: . Synovitis: None noted for the hands . Back pain: Yes lower back . Sacroiliac pain: None . Schoeber's maneuver (cm): 2.5 Assessment: (M45.0) Ankylosing spondylitis of multiple sites in spine (HCC) (primary encounter diagnosis) Plan: HEPATITIS B CORE ANTIBODIES IGG AND IGM, (M50.30) DDD (degenerative disc disease), cervical (Z15.89) HLA B27 positive (L40.0) Plaque psoriasis Even know she has some cervical neck disease you do wonder about an underlying inflammatory spondyloarthropathy given her long history of back and neck pain, HLA B27 positivity and elevated inflammatory markers. At this point think it is best to start treating her for with biologic therapy whichwould also help the skin disease and gauge her response. Plan: 1. Lab work ordered 2. Discussed use of Humira and/or Enbrel for and her psoriasis-will start Auth process for Enbrel once labs are back 3. Answered all questions 4. Return to clinic in 3 months Buddy Yañez MD Department of Rheumatology documented in this encounter Nursing Notes * Ezekiel Mitchell LPN - 09/07/2024 1:56 PM EDT Chief Complaint Patient presents with Rheum Follow Up Referred by Dr Galarza for " muscle spasms/pain, rash on legs,scalp" documented in this encounter Plan of Treatment Upcoming Encounters Date Type Department Care Team (Late st Contact Info) Description 09/14/2024 5:00 PM EDT Office Visit Family [address] [place] [phone] Ludy Bob MD [address] [place] [address] [place] [phone] 10/09/2024 11:00 AM EDT Office Visit [address] [place] [phone] Ludy Bob MD [address] [place] [address] [place] [phone] 10/19/2024 2:20 PM EDT Office Visit [facility] Disorders Ctr [facility] [address] [place] [phone] Liyah Trinidad DO [address] [place] [address] 12/07/2024 3:30 PM EDT Office Visit Rheumatology [address] [place] [phone] Marielle Roblero CRNP [address] [place] [address] [place] [address] 03/25/2025 12:30 PM EDT Office Visit Cardiology [address] [place] [address] Larissa Germain PA-C [address] [place] [address] 05/26/2025 9:00 AM EST Office Visit [address] [place] [phone] Angela Raza MD [address] [place] [address] [place] [phone] Pending Results Name Type Priority Associated Diagnoses Date /Time HEPATITIS B CORE ANTIBODIES IGG AND IGM [...] [facility]) 09/07/2024 2:33 PM EDT Scheduled Orders Name Type Priority Associated Diagnoses Orde r Schedule HEPATITIS B CORE ANTIBODIES IGG AND IGM Lab Routine HLA B27 positive Plaque psoriasis Ankylosing spondylitis of multiple sites in spine ([facility]) Expected: 09/07/2024, Expires: 09/07/2025 HEPATITIS B SURFACE ANTIGEN Lab Routine HLA B27 positive Plaque psoriasis Ankylosing spondylitis of multiple sites in spine ([facility]) Expected: 09/07/2024, Expires: 09/07/2025 HEPATITIS B SURFACE ANTIBODY Lab Routine HLA B27 positive Plaque psoriasis Ankylosing spondylitis of multiple sites in spine ([facility]) Expected: 09/07/2024, Expires: 09/07/2025 HEPATITIS C ANTIBODY SCREEN WITH PROGRESSION TO HEPATITIS C RNA QUANTITATIVE Lab Routine HLA B27 positive Plaque psoriasis Ankylosing spondylitis of multiple sites in spine ([facility]) Expected: 09/07/2024, Expires: 09/07/2025 QUANTIFERON TB GOLD PLUS Lab Routine HLA B27 positive Plaque psoriasis Ankylosing spondylitis of multiple sites in spine (HCC) Expected: 09/07/2024, Expires: 09/07/2025 SERUM PROTEIN ELECTROPHORESIS REFLEX PROFILE Lab Routine HLA B27 positive Plaque psoriasis Ankylosing spondylitis of multiple sites in spine (HCC) Expected: 09/07/2024 (Approximate), Expires: 09/07/2025 SERUM IMMUNOFIXATION Lab Routine HLA B27 positive Plaque psoriasis Ankylosing spondylitis of multiple sites in spine (HCC) Expected: 09/07/2024, Expires: 09/07/2025 Health Maintenance Due Date Last Done Comments [...] 11/03/2012, Additional history exists GFR 08/22/2025 08/22/2024, 030 12/2024, 08/13/2024, Additional history exists Depression Monitoring [...] as of this encounter Visit Diagnoses Diagnosis Ankylosing spondylitis of multiple sites in spine (HCC)- Primary Ankylosing spondylitis DDD (degenerative disc disease), cervical Degeneration of cervical intervertebral disc HLA B27 positive Genetic susceptibility to other disease Plaque psoriasis Other psoriasis documented in this encounter Advance Directives * [...] Power of Attor wesley? No Care Teams Sander And Buffer Relationship Specialty Start Date End Date Ludy Bob MD [address] [place] [address] [place] [phone] PCP - General Family Medicine 08/10/24 documented as of this encounter
--- OUTSIDE RECORDS SUMMARY | 2024-09-10 05:24 | External Medical Summary ---
Author Name Unknown Address Unknown Organization K01:[facility] - [facility] [address] [facility] [address] Laboratory Report Ordering Provider Test Date Status GERARDO REYNOSO 09/07/2024 14:33:13 Final Observation Date Value Abnormality Reference (Units ) Status BUN 09/07/2024 14:33:13 10 6-20 (mg/dL) Final Creatinine 09/07/2024 14:33:13 0.6 0.5-1.0 (mg/dL) Final Glomerular filtration rate/1.73 sq M.predicted [Volume Rate/Area] in Serum, Plasma or Blood by Creatinine-based formula (CKD-EPI) 09/07/2024 14:33:13 >90 >=60 (mL/min) Final eGFR is calculated based on the CKD-EPI 2020 equation. Sodium 09/07/2024 14:33:13 138 135-146 (m mol/L) Final Potassium 09/07/2024 14:33:13 4.3 3.5-5.1 (m mol/L) Final Cl 09/07/2024 14:33:13 103 98-107 (mm ol/L) Final CO2 09/07/2024 14:33:13 23 22-32 (mmo l/L) Final Anion gap 09/07/2024 14:33:13 12 7-15 (mmol /L) Final Glucose 09/07/2024 14:33:13 98 70-120 (mg /dL) Final Calcium 09/07/2024 14:33:13 9.5 8.4-10.2 ( mg/dL) Final Performing Location [facility] - [address] [facility] [address]
--- OUTSIDE RECORDS SUMMARY | 2024-09-10 05:25 | External Medical Summary | Summary of Care ---
Author Name Unknown Organization [facility] Address [address] [place] [address] Phone [phone] Care Team Providers Care Financial Data Analyst Name Role Phone Ludy Bob MD Primary Care Pr ovider Reason for Visit * Reason Comments Acute Encounter Details Date Type Department Care Team (Late st Contact Info) Description 09/01/2024 10:40 AM EDT Telemedicine [address] [phone] Ludy Bob MD [address] [place] [address] [place] [phone] Muscle spasms of both lower extremities*; Muscle weakness (generalized); Dysfunction of both eustachian tubes; Dizziness; Prolonged QT interval; Chronic fatigue; Anxiety about health; TINA (generalized anxiety disorder); PCOS (polycystic ovarian syndrome); Iron deficiency anemia secondary to inadequate dietary iron intake Allergies Active Allergy Reactions Criticality Noted Date [...] as of this encounter (statuses as of 09/01/2024) Medications melatonin 1 MG Tablet Take 3 [...] EVERY DAY IN THE MORNING, Reported on 08/28/2024 Vitamin D 50 MCG (1999 UT) Oral Capsule Take 2,000 Units by mouth in the morning. 90 Capsule 1 5 Active LORazepam 0.5 MG Oral Tablet (Ativan) Take 1 Tablet by mouth every 8 hours as needed for Anxiety. 45 Tablet 5 Active documented as of this encounter (statuses as of 09/01/2024) Active Problems Problem Noted Date Diagnosed Date [...] as of this encounter (statuses as of 09/01/2024) Resolved Problems Problem Noted Date Diagnosed Date [...] as of this encounter (statuses as of 09/01/2024) Immunizations Name Administration Dates Next Due Hepatitis [...] Progress Notes * Ludy Bob MD - 09/01/2024 10:40 AM EDT Images from the original note were not included. History of Present Illness Verna BROWN is a 38 year old female that presents for Acute History of Present Illness The patient, with a history of anxiety, presents with multiple symptoms including dizziness, fatigue, muscle twitching, and palpitations. The patient reports feeling "off" in her spatial orientation,with a sensation of rocking as if on a boat, and a feeling of her voice sounding different in her head. She also reports muscle weakness and twitching, particularly in the cheeks and thumb. The patient has been experiencing palpitations, describing a sensation of her heart beating in her mouth, although vitals have been reported as normal. The patient also reports epigastric pain, located under the breastbone, which has been persistent despite previous investigations and treatments. The patient also mentions a history of irregular menstrual cycles and elevated DHEA and testosterone levels, suggesting a possible diagnosis of PCOS. The patient is currently not working due to her symptoms and is awaiting clearance from various specialists before she can return to work. Psych ordered iron panel. Asked about cortisol, unlikely to be helpful while she is going through stressful events. Seeing ENT today Physical Exam There were no vitals taken [...] and Affect: Mood normal. Behavior: Behavior normal. Reviewed CBC, CMP, and urine dip from recent ED visit Assessment and Plan Assessment & Plan Electrolyte Imbalance/Muscle twitching Muscle twitching suggests a potential electrolyte imbalance, particularly involving potassium. Previous labs showed fluctuations, but recent labs are normal. Recheck electrolytes and order CK to assess muscle function. QTc Prolongation Palpitations and dizziness warrant an EKG to monitor QTc. Discontinue Lorac due to its impact on QTc and switch to Fatuma. Eustachian Tube Dysfunction Symptoms include ear popping, fluid sensation, and dizziness. Proceed with ENT testing as scheduledfor further evaluation. Frontal Temporal Lobe Slowing Theta wave slowing in the frontal temporal lobe may relate to fatigue or neurological issues. Proceed with the 72-hour ambulatory EEG as ordered by neurology. Polycystic Ovary Syndrome (PCOS) Elevated DHEA, testosterone, irregular cycles, and potential insulin resistance suggest PCOS. Discussed metabolic and menstrual implications. Consider an endocrinology referral for further evaluation. Anxiety Significant anxiety is exacerbated by health issues. Discussed stress impact on cortisol and advised against cortisol testing. Encourage activities to distract from anxiety. Iron Deficiency Slightly low hemoglobin suggests potential iron deficiency. Recommend iron supplementation every other day with orange juice for absorption. Muscle spasms of both lower extremities - BASIC METABOLIC PANEL; Future - CK; Future Muscle weakness (generalized) - BASIC METABOLIC PANEL; Future - CK; Future Dysfunction of both eustachian tubes Dizziness - BASIC METABOLIC PANEL; Future - EKG; Future Prolonged QT interval Chronic fatigue Anxiety about health; TINA (generalized anxiety disorder) Following with psych. I do feel anxiety is magnifying her symptoms. PCOS (polycystic ovarian syndrome) Iron deficiency anemia secondary to inadequate dietary iron intake Wrap-Up Time: I spent a total of 20-29 minutes (exact time 26 mins) on the date of service in preparation, delivery, and documentation of the care provided to Verna BROWN excluding any time spent in the performance of separately billed services. Text in this note was generated using an [employer] documentation service. I discussed the use of a device to record and summarize our discussion today. All persons present during the encounter consented to its use. Patient location: HOME. I was in a hospital or clinic location. After connecting through televideo,patient was verified with two unique identifiers. Patient (or authorized legal route service representative) was then informed that this [...] 09/07/2024 2:00 PM EDT Office Visit Rheumatology [address] [place] [address] [place] [phone] Buddy Yañez MD [facility] [place] [address] 10/09/2024 11:00 AM EDT Office Visit Family Medicine [address] [place] [address] [place] [phone] Ludy Bob MD [address] [place] [address] [place] [phone] 03/25/2025 12:30 PM EDT Office Visit Cardiology [address] [place] [address] [place] [address] Larissa Germain PA-C [address] [place] [address] 05/26/2025 9:00 AM EST Office Visit Family Medicine [address] [place] [address] [place] [phone] Angela Raza MD [address] [place] [address] [place] [address] Scheduled Orders Name Type Priority Associated Diagnoses Orde r Schedule BASIC METABOLIC PANEL Lab Routine Dizziness Muscle spasms of both lower extremities Muscle weakness (generalized) Expected: 09/01/2024 (Approximate), Expires: 09/01/2025 CK Lab Routine Muscle spasms of both lower extremities Muscle weakness (generalized) Expected: 09/01/2024 (Approximate), Expires: 09/01/2025 EKG EKG Routine Dizziness Expected: 09/01/2024 (Approximate), Expires: 10/02/2025 Health Maintenance Due Date Last Done Comments [...] 07/02/2022, 09/2017, 11/03/2012, Additional history exists GFR 08/22/2025 [...] as of this encounter Visit Diagnoses Diagnosis Muscle spasms of both lower extremities- Primary Muscle weakness (generalized) Dysfunction of both eustachian tubes Dysfunction of Eustachian tube Dizziness Dizziness and giddiness Prolonged QT interval Nonspecific abnormal electrocardiogram (ECG) (EKG) Chronic fatigue Other malaise and fatigue Anxiety about health TINA (generalized anxiety disorder) Generalized anxiety disorder PCOS (polycystic ovarian syndrome) Polycystic ovaries Iron deficiency anemia secondary to inadequate dietary iron intake documented in this encounter Advance Directives * [...] Power of Attor wesley? No Care Teams Financial Data Analyst Relationship Specialty Start Date End Date Ludy Bob MD [address] [place] [address] [place] [phone] PCP - General Family Medicine 08/10/24 documented as of this encounter
--- OUTSIDE RECORDS SUMMARY | 2024-09-10 05:25 | External Medical Summary | Summary of Care ---
Author Name Unknown Organization [facility] Address [address] [place] [address] Phone [phone] Care Team Providers Care Meter Reader Chief Name Role Phone Ludy Bob MD Primary Care Pr ovider Reason for Visit * Reason Onset Date Comments Appointment 08/28/2024 Return in about 2 weeks (around 09/11/2024) for Return with Physician. And SLEEP MED Encounter Details Date Type Department Care Team (Late st Contact Info) Description 08/28/2024 Telephone Family Medicine [address] [phone] Ludy Bob MD [address] [place] [address] [place] [phone] Appointment (Return in about 2 weeks (arou... Allergies Active Allergy Reactions Criticality Noted Date [...] as of this encounter (statuses as of 09/02/2024) Medications melatonin 1 MG Tablet Take 3 [...] MORNING 90 Tablet 3 07/17/19 25 Active Additional Information Patient taking differently: 5 mg Oral QPM-1999, TAKE 1 TABLET BY MOUTH EVERY DAY IN THE MORNING, Reported on 08/28/2024 LORazepam 0.5 MG Oral Tablet (Ativan) Take 1 Tablet by mouth every 8 hours as needed for Anxiety. 45 Tablet 08/29/19 25 Active Vitamin D 50 MCG (2000 UT) Oral Capsule Take 2,000 Units by mouth in the morning. 90 Capsule 1 08/03/19 25 025 Discontinued documented as of this encounter (statuses as of 09/02/2024) Active Problems Problem Noted Date Diagnosed Date [...] as of this encounter (statuses as of 09/02/2024) Resolved Problems Problem Noted Date Diagnosed Date [...] as of this encounter (statuses as of 09/02/2024) Immunizations Name Administration Dates Next Due Hepatitis [...] Telephone Encounter - Jacob Ramirez OSA - 09/02/2024 1:46 PM EDT I spoke to pt. She has already been scheduled for f/u. She is scheduled for Sleep med at . Pt aware. * Telephone Encounter - Jacob Ramirez OSA - 08/28/2024 2:56 PM EDT Video appt 08/28/24. Pt needs scheduled for 2 week f/u and Sleep med. I will call pt documented in this encounter Plan of Treatment Upcoming Encounters Date Type Department Care Team (Late st Contact Info) Description 09/07/2024 2:00 PM EDT Office Visit Rheumatology [address] [place] [phone] Buddy Yañez MD [facility] [place] [address] 09/07/2024 5:00 PM EDT Office Visit Family Medicine [address] [place] [phone] Ludy Bob MD [address] [place] [address] [place] [phone] 10/09/2024 11:00 AM EDT Office Visit Family Medicine [address] [place] [phone] Ludy Bob MD [address] [place] [address] [place] [phone] 10/19/2024 2:20 PM EDT Office Visit Sleep Disorders Ctr [facility] [address] [place] [phone] Liyah Trinidad DO [address] [place] [address] 03/25/2025 12:30 PM EDT Office Visit Cardiology [address] [place] [address] Larissa Germain PA-C [address] [place] [address] 05/26/2025 9:00 AM EST Office Visit Family Medicine [address] [place] [phone] Angela Raza MD [address] [place] [address] [place] [phone] Health Maintenance Due Date Last Done Comments [...] 07/02/2022, 1209/2017, 11/03/2012, Additional history exists GFR 08/22/2025 08/22/2024, [...] Power of Attor wesley? No Care Teams Meter Reader Chief Relationship Specialty Start Date End Date Ludy Bob MD [address] [place] [address] [place] [phone] PCP - General Family Medicine 08/10/24 documented as of this encounter
--- OUTSIDE RECORDS SUMMARY | 2024-09-10 05:25 | External Medical Summary | Summary of Care ---
Author Name Unknown Organization [facility] Address [address] [place] [address] Phone [phone] Care Team Providers Care Automotive Service Professional Name Role Phone Ludy Bob MD Primary Care Pr ovider Reason for Referral * Evaluate & Treat - Unlimited Visits (Within 30 days (routine)) - Authorized Specialty Diagnoses / Procedures Referred By Angi norman Referred To Contact Otolaryngology Diagnoses Dysfunction of both eustachian tubes Ludy Bob MD [address] [place] [address] [place] [phone] Phone: tel: fax: Referral ID Status Reason Start Date Expiration Date Visits Requested Visits Authorized [id number] Authorized Specialty Services Required 09/02/2024 1 1 Question Answer Referral Priority Within 30 days (routine) Where should this appointment be scheduled? [facility] Reason(s) for referral? eustacian tube dysfunction, vestibular issues suspected Reason for Visit * Reason Comments Acute Encounter Details Date Type Department Care Team (Late st Contact Info) Description 09/02/2024 11:20 AM EDT Telemedicine Family Medicine [address] [place] [phone] Ludy Bob MD [address] [place] [address] [place] [phone] Dysfunction of both eustachian tubes*; Palpitations; Seasonal allergic rhinitis due to pollen; Iron deficiency anemia secondary to inadequate dietary [...] 08/28/2024 Does the household have a re lar source of income? (Household - for ages [...] Progress Notes * Ludy Bob MD - 09/02/2024 11:16 AM EDT Images from the original note were not included. History of Present Illness Verna BROWN is a 38 year old female that presents for Acute History of Present Illness The patient, with a history of Eustachian tube dysfunction and palpitations, presents with ongoing concerns. She recently had a hearing test and fluid test for her ears, both of which were normal. However, she was unable to have Eustachian tube dysfunction testing due to lack of available equipment. She is seeking a referral to a different ENT for further evaluation. The patient also reports ongoing palpitations, even when lying down. She has previously been monitored for heart rhythm abnormalities and is seeking to have a live monitor again to track her day-to-day activities and provide reassurance. In addition, the patient has received recent lab results indicating slightly low iron saturation and slightly high IBC unbound. She is considering starting an iron supplement to see if it improves her symptoms. Lastly, the patient has been prescribed Fatuma for allergies but has been hesitant to start it dueto fear of side effects. Physical Exam There were no vitals taken [...] normal. Assessment and Plan Assessment & Plan Eustachian Tube Dysfunction Symptoms persist despite a previous inconclusive ENT evaluation. Hearing test is normal with no fluid detected, but eustachian tube dysfunction testing was not performed. Refer to [facility] for further evaluation and testing. Palpitations She experiences ongoing palpitations even while lying down. A previous Zio patch was negative. Patient requests a Zio MCT patch for continuous monitoring. Order Zio MCT patch for 14 days of continuous live monitoring, pending availability. Iron Deficiency Recent labs indicate low iron saturation and high IBC, suggesting mild iron deficiency. Ferritin, folate, and B12 levels are normal. Recommend 325 mg of elemental iron every other day with vitamin C to enhance absorption. Allergic Rhinitis Symptoms include ear popping and nasal congestion. She is hesitant to start Fatuma due to fear of side effects. Advise starting with half a tablet of Fatuma to assess tolerance. Follow-up An upcoming rheumatology appointment is scheduled. Schedule a follow-up appointment in one week, coinciding with the rheumatology visit. Dysfunction of both eustachian tubes - ADULT/PEDS OTOLARYNGOLOGY REFERRAL OP Palpitations - EXTERNAL EKG 8 TO 15 DAYS; Future Seasonal allergic rhinitis due to pollen Iron deficiency anemia secondary to inadequate dietary iron intake Wrap-Up Follow Up: Return in about 1 week (around 09/09/2024) for Return with Physician. | For: Return with Physician Time: I spent a total of 10-19 minutes (exact time 13 mins) on the date of service in preparation, delivery, and documentation of the care provided to Verna BROWN excluding any time spent in the performance of separately billed services. Text in this note was generated using an [employer] documentation service. I discussed the use of a device to record and summarize our discussion today. All persons present during the encounter consented to its use. documented in this encounter Plan of Treatment Upcoming Encounters Date Type Department Care Team (Late st Contact Info) Description 09/07/2024 2:00 PM EDT Office Visit Rheumatology [address] [place] [phone] Buddy Yañez MD [facility] [place] [address] 09/07/2024 5:00 PM EDT Office Visit Family Medicine [address] [place] [phone] Ludy Bob MD [address] [place] [address] [place] [phone] 10/09/2024 11:00 AM EDT Office Visit Family Medicine [address] [place] [phone] Ludy Bob MD [address] [place] [address] [place] [phone] 10/19/2024 2:20 PM EDT Office Visit Sleep Disorders [facility] [address] [place] [phone] Liyah Trinidad DO [address] [place] [address] 03/25/2025 12:30 PM EDT Office Visit Cardiology [address] [place] [address] Larissa Germain PA-C [address] [place] [address] 05/26/2025 9:00 AM EST Office Visit [address] [place] [phone] Angela Raza MD [address] [place] [address] [place] [id number] Scheduled Orders Name Type Priority Associated Diagnoses Orde r Schedule EXTERNAL EKG 8 TO 15 DAYS Holter Routine Palpitations Expected: 09/03/2024 (Approximate), Expires: 09/02/2025 Scheduled Referrals Name Type Priority Associated Diagnoses Order Schedule ADULT/PEDS OTOLARYNGOLOGY REFERRAL OP Referral Within 30 days (routine) Dysfunction of both eustachian tubes Ordered: 09/02/2024 Health Maintenance Due Date Last Done Comments [...] eustachian tubes- Primary Dysfunction of Eustachian tube Palpitations Seasonal allergic rhinitis due to pollen Iron deficiency anemia secondary to inadequate dietary [...] Power of Attor wesley? No Care Teams Automotive Service Professional Relationship Specialty Start Date End Date Ludy Bob MD [address] [place] [address] [place] [phone] PCP - General Family Medicine 08/10/24 documented as of this encounter"
--- OUTSIDE RECORDS SUMMARY | 2024-09-10 05:25 | External Medical Summary | Summary of Care ---
Author Name Unknown Organization [facility] Address [address] [place] [address] Phone [phone] Care Team Providers Care Pesticide Chemist Name Role Phone Ludy Bob MD Primary Care Pr ovider Reason for Visit * Reason Onset Date Comments Appointment 09/03/2024 ZIO placement Encounter Details Date Type Department Care Team (Late st Contact Info) Description 09/03/[address] [phone] Ludy Bob MD [address] [place] [address] [place] [phone] Appointment (ZIO placement ) Allergies Active Allergy Reactions Criticality Noted [...] as of this encounter (statuses as of 09/03/2024) Medications melatonin 1 MG Tablet Take 3 Tablets by mouth at bedtime. Active Magnesium 250 MG Oral Tablet Take 1 Tablet by mouth in the morning. Active SIPXTouch Ultra In Vitro Strip (Glucose Blood)Indication s:Prediabetes,Hy [...] Information Patient taking differently: 5 mg Oral QPM-2000, TAKE 1 TABLET BY MOUTH EVERY DAY IN THE MORNING, Reported on 08/28/2024 LORazepam 0.5 MG Oral Tablet (Ativan) Take 1 Tablet by mouth every 8 hours as needed for Anxiety. 45 Tablet 5 Active documented as of this encounter (statuses as of 09/03/2024) Active Problems Problem Noted Date Diagnosed Date [...] as of this encounter (statuses as of 09/03/2024) Resolved Problems Problem Noted Date Diagnosed Date [...] as of this encounter (statuses as of 09/03/2024) Immunizations Name Administration Dates Next Due Hepatitis [...] 1:34 AM RODGERT Kaur Marx RN * Are you blind [...] Telephone Encounter - Angelina Carter OSA - 09/03/2024 10:46 AM EDT Verna called me back, she said she doesn't need scheduled for ZIO, they are mailing it to her, itis a live ZIO she said. * Telephone Encounter - Angelina Carter OSA - 09/03/2024 10:00 AM EDT I left message on patient's VM to call me (RE: Zio monitor that Dr. Galarza ordered, pt needs on nurse schedule to get placed) documented in this encounter Plan of Treatment Upcoming Encounters Date Type Department Care Team (Late st Contact Info) Description 09/07/2024 2:00 PM EDT Office Visit Rheumatology [address] [place] [phone] Buddy Yañez MD [address] [place] [address] [place] [address] 09/07/2024 5:00 PM EDT Office Visit Family [address] [place] [phone] Ludy Bob MD [address] [place] [address] [place] [phone] 10/09/2024 11:00 AM EDT Office Visit Family [address] [place] [phone] Ludy Bob MD [address] [place] [address] [place] [phone] 10/19/2024 2:20 PM EDT Office Visit Sleep Disorders [facility]tr [facility] [address] [place] [phone] Liyah Trinidad DO [address] [place] [address] 03/25/2025 12:30 PM EDT Office Visit Cardiology [address] [place] [address] Larissa Germain PA-C [address] [place] [address] 05/26/2025 9:00 AM EST Office Visit Family Medicine [address] [place] [phone] Angela Raza MD [address] [place] [address] [place] [address] Health Maintenance Due Date Last Done Comments [...] Power of Attor wesley? No Care Teams Pesticide Chemist Relationship Specialty Start Date End Date Ludy Bob MD [address] [place] [address] [place] [phone] PCP - General Family Medicine 08/10/24 documented as of this encounter
--- OUTSIDE RECORDS SUMMARY | 2024-09-10 05:25 | External Medical Summary | Summary of Care ---
Author Name Unknown Organization [facility] Address [address] [place] [address] Phone [phone] Care Team Providers Care Sociology Faculty Member Name Role Phone Ludy Bob MD Primary Care Pr ovider Reason for Visit * Reason Onset Date Comments Fax 09/01/2024 Encounter Details Date Type Department Care Team ([facility] st Contact Info) Description 09/01/2024 Telephone Family Medicine [address] [phone] Ludy Bob MD [address] [place] [address] [place] [phone] Fax Allergies Active Allergy Reactions Criticality [...] Telephone Encounter - Radha Mix CMA - 09/02/2024 9:01 AM EDT Faxed to number below * Telephone Encounter - Sujey Coleman OSA - 09/01/2024 2:45 PM EDT Pt calling in and she's at [facility] registration requesting an order for the CK. Pt states order for this was not received yet. Please fax to [phone]. Thank you. * Telephone Encounter - Ann Palomares OSA - 09/01/2024 1:44 PM EDT Pt calling in and she's at [facility] registration waiting on fax to [phone]. Thank you, HUGO Farmer documented in this encounter Plan of Treatment Upcoming Encounters Date Type Department Care Team (Late st Contact Info) Description 09/02/2024 11:20 AM EDT Telemedicine Family Medicine [address] [place] [phone] Ludy Bob MD [address] [place] [address] [place] [phone] 09/07/2024 2:00 PM EDT Office Visit Rheumatology [address] [place] [phone] Buddy Yañez MD [address] [place], [place] [address] [address] 10/09/2024 11:00 AM EDT Office Visit Family Medicine [address] [place] [phone] Ludy Bob MD [address] [place] [address] [place] [phone] 03/25/2025 12:30 PM EDT Office Visit Cardiology [address] [place] [address] Larissa Germain PA-C [address] [place] [address] 05/26/2025 9:00 AM EST Office Visit Family Medicine [address] [place] [phone] Angela Raza MD [address] [place] [address] [place] [address] Health Maintenance Due Date Last Done Comments [...] 07/02/2022, 12/09/2017, 11/03/2012, Additional history exists GFR 08/22/2025 08/22/2024, [...] Power of Attor wesley? No Care Teams Sociology Faculty Member Relationship Specialty Start Date End Date Ludy Bob MD [address] [place] [address] [place] [phone] PCP - General Family Medicine 08/10/24 documented as of this encounter
--- OUTSIDE RECORDS SUMMARY | 2024-09-10 05:25 | External Medical Summary | Summary of Care ---
Author Name Unknown Organization [facility] Address [address] [place] [address] Phone [phone] Care Team Providers Care Evaporator Supervisor Name Role Phone Ludy Bob MD Primary Care Pr ovider Reason for Visit * Reason Onset Date Comments Appointment 09/03/2024 ZIO placement Encounter Details Date Type Department Care Team (Late st Contact Info) Description 09/03/[address] [phone] Ludy Bob MD [address] [place] [address] [place] [phone] Appointment (ZIO placement ) Allergies Active [...] Tablet by mouth in the morning. Active motionBEAT incTouch Ultra In Vitro Strip (Glucose Blood)Indication s:Prediabetes,Hy [...] 09/07/2024 2:00 PM EDT Office Visit Rheumatology [address] [place] [phone] Buddy Yañez MD [address] [place] [address] [place] [address] 09/07/2024 5:00 PM EDT Office Visit Family [address] [place] [phone] Ludy Bob MD [address] [place] [address] [place] [phone] 10/09/2024 11:00 AM EDT Office Visit Family [address] [place] [phone] Ludy Bob MD [address] [place] [address] [place] [phone] 10/19/2024 2:20 PM EDT Office Visit Sleep Disorders Ctr [facility] [address] [place] [phone] Liyah Trinidad DO [address] [place] [address] 03/25/2025 12:30 PM EDT Office Visit Cardiology [address] [place] [address] Larissa Germain PA-C [address] [place] [address] 05/26/2025 9:00 AM EST Office Visit Family Medicine [address] [place] [phone] Angela Raza MD [address] [place] [address] [place] [address] Health Maintenance Due Date [...] Power of Attor wesley? No Care Teams Evaporator Supervisor Relationship Specialty Start Date End Date Ludy Bob MD [address] [place] [address] [place] [phone] PCP - General Family Medicine 08/10/24 documented as of this encounter
--- NOTE | 2024-09-10 08:46 | Neurology Consultation ---
Date of Consultation September 10, 2024 Assessment & Plan (1) Abnormal brain MRI: History of Present Illness Attending Physician: Kristopher Phan MD History of Present Illness S: pt this morning without headache. again complaining of ill defined symptoms that does not localize. mri brain last night, showing blush of subcortical lesion left frontal area. no TINA given. no stroke. pt this morning feels back to baseline but her chronic "off feeling" is her concern. chart reviewed. admission HPI: This is a 38-year-old female that presents to the emergency department via private vehicle with complaints of "vision change, dizziness,". The patient notes that for the past 8 weeks she has been experiencing slow worsening progression of vision change, head pressure, headache, feeling "d isconnected from body" as well as feeling "". She describes her vision change as "sharp and surreal". Patient notes that at times she feels like lights are too bright and that other times too dark. Patient does note she is currently wearing a heart monitor. She denies any recent head trauma or injury. No tobacco use. No alcohol use. No drug use. Patient does note recent admission and psychological assessment, but does not feel that today's presentation is psychological in nature. She denies any SI or HI. She states that she had an appointment today with PCP and was referred here for further evaluation and management. Allergies Allergy/AdvReac Type Severity Reaction Status Date / Time amoxicillin Allergy Severe ANAPHYLAXIS Verified 08/25/24 17:31 clavulanic acid Allergy Severe ANAPHYLAXIS Verified 08/25/24 17:31 doxycycline Allergy Intermediate Rash Verified 08/25/24 17:31 fish derived Allergy Intermediate Hives Verified 08/25/24 17:31 metronidazole Allergy Intermediate rash Verified 08/25/24 17:31 sulfamethoxazole Allergy Intermediate tongue Verified 08/25/24 17:31 [From Bactrim] swelling trimethoprim [From Bactrim] Allergy Intermediate tongue Verified 08/25/24 17:31 swelling coffee (Coffea arabica) Allergy Unknown per Verified 08/25/24 17:31 allergy testing Penicillins Allergy Unknown per Verified 08/25/24 17:31 allergy testing Home Medications Medication Instructions Recorded Confirmed Type escitalopram oxalate 10 mg tablet 5 mg PO PM 08/02/24 09/09/24 History melatonin 5 mg tablet 5 mg PO HS 08/25/24 09/09/24 History desloratadine 5 mg tablet 5 mg PO PM 09/09/24 09/09/24 History fluticasone propionate 50 2 spray intranasal DAILY PRN 09/09/24 09/09/24 History mcg/actuation nasal allergies spray,suspension magnesium oxide 250 mg PO HS 09/09/24 09/09/24 History Patient History Medical History Headache Sinus tachycardia Chest pain Adjustment disorder with anxious mood Chest pain Fatigue COVID-19 Change in vision Dizziness History of pre-eclampsia History of bradycardia DVT (deep venous thrombosis) Morbid obesity with BMI of 40.0-44.9, adult Iron deficiency anemia Heart palpitations Surgical History History of esophagogastroduodenoscopy (EGD) History of wisdom tooth extraction History of cardiac cath 06/2015 @ [facility]--d/t chest pain, normal no stents History of cholecystectomy Family History (System 10/17/22 @ 08:26 by Sophia Benavidez) Father Hypertension Mother Diabetes Grandfather (Maternal) Diabetes Coronary heart disease Myocardial infarction Congestive heart failure Colorectal cancer Grandfather (Paternal) Diabetes Coronary heart disease Myocardial infarction, Onset Age: 50 Grandmother (Paternal) Pulmonary emphysema Sick sinus syndrome Diabetes Pacemaker Grandmother (Maternal) Family history of diabetes mellitus Aunt Pulmonary emphysema Family/Other Myocardial infarction, Onset Age: 37 Coronary heart disease Uncle Stroke Other Asthma Lymphoma No family history of adverse response to anesthesia Denies family history of Ovarian cancer Prostate cancer Breast cancer Social History Smoking Status: Former smoker Tobacco Type: Cigarettes Second Hand Exposure: No; Do You Dip or Chew Tobacco: No; Hx Alcohol Use: No Hx Substance Use: No Preferred Language: Cuban Communication Ability: Effective Communication Tools: Other Visual Impairment: No Limitations Hearing Ability: Normal Invasive Cardiologist Required: No Beliefs That Will Affect Care: None marital status: Current Living Situation: Family Current Living Situation Comment: Lives with and daughter current occupational status: unemployed How many Children do You have: 1 Feels Safe at Home: Yes Safety Concerns: Feels Safe At This Time Childhood Exposure to Second-Hand Smoke: Yes Diet: regular caffeine: No during the past year weight has: remained stable Dental Care, Regularly: Yes Physical Activity Frequency: 5-6 Times per Week Seatbelt Use: never Sunscreen Use: Yes Gender Identity: Female Assistive Devices: Glasses Exam (Neuro) Physical Exam: HEENT: normocephalic grossly Neuro: Mental: AOx4, fluent speech, normal comprehension, no apraxia, CN: PERRL, Full EOM, symmetric face,grossly full ROM neck Motor: No abnormal movements, normal tone, 5/5 t/o bilaterally grossly, moving well all limbs. Sens: intact to touch b/l grossly Coord: intact FNT b/l DTR: 2+ sym b/l UE. Gait: intact grossly with narrow stands and good pace and quick turn without balance issues. Impression: 38 yo female with new subcortical white matter lesion compare to about 7 weeks ago in setting of chronic subjective imbalance, ill defined somatoform like symptoms without focal neuro deficits. pt with chronic anxiety and depression also, well known to neurology clinic. The mri brain finding is interesting lesion and reasonable to do further investigation. However, overall clinically stable. Recommendations: get repeat mri brain with TINA to see if the lesion enhances. if it does, may warrant further demyelinating disorder work up. typically, MS/demyelinating work up is done as outpt r/o metabolic disorders consideration for psychiatric component for her majority of symptoms as the mri brain lesion finding does not explain her symptoms. will review the mri brain with TINA once it is done. Chart reviewed I have spent more than 50% educating patient about potential diagnosis and neurological evaluation and coordinating care with patient's treatment team. Total time spent (including chart review and coordination of care): 50 min (this includes chart review). Results & Data Vital Signs (Past 12 Hours) Vital Signs Temp Pulse Pulse Resp BP Pulse Ox O2 Del Method 09/10/24 07:39 36.8 C 81 16 111/77 94 Room Air 09/09/24 21:52 87 18 127/90 09/09/24 21:28 36.8 C 96 H 22 141/103 H 96 Room Air PG Care Time/CCT Total # of Minutes Spent Total Time Spent with Patient: Total time spent is greater than 50% in coordination of care (as documented) at patient's floor/unit and/or counseling patient: Coding Level of Care Code 65217 IN/OBS CONSULT LVL 3,45M Diagnoses Abnormal brain MRI R90.89
--- OUTSIDE RECORDS SUMMARY | 2024-09-10 09:46 | External Medical Summary | Summary of Care ---
Author Name Unknown Organization [facility] Address [address] [place] [address] Phone [phone] Care Team Providers Care [employer] Manager Name Role Phone Ludy Bob MD Primary Care Pr ovider Reason for Visit * Reason Comments Re-Check Encounter Details Date Type Department Care Team (Late st Contact Info) Description 09/09/2024 11:20 AM EDT Telemedicine [address] [phone] Ludy Bob MD [address] [place] [address] [place] [phone] Vision changes*; Dysfunction of both eustachian tubes; Benign intracranial hypertension syndrome; Elevated urinary free cortisol level; Anxiety about health Allergies Active Allergy Reactions [...] as of this encounter (statuses as of 09/09/2024) Medications melatonin 1 MG Tablet Take 3 [...] as of this encounter (statuses as of 09/09/2024) Active Problems Problem Noted Date Diagnosed Date MTHFR mutation 09/08/2024 PCOS (polycystic ovarian syndrome) 09/01/2024 Chronic fatigue [...] as of this encounter (statuses as of 09/09/2024) Resolved Problems Problem Noted Date Diagnosed Date [...] as of this encounter (statuses as of 09/09/2024) Immunizations Name Administration Dates Next Due Hepatitis [...] * Geovanni Segovia, Ludy Vargas MD - 09/09/2024 11:14 AM EDT Images from the original note were not included. History of Present Illness Verna Remy is a 38 year old female that presents for Re-Check History of Present Illness The patient, with a history of eustachian tube dysfunction and elevated cortisol levels, presents with rapidly declining vision over the past two days. The vision changes are described as disorganized, with fluctuating sharpness and blurriness, and difficulty distinguishing between light and dark. The patient also reports physical pain in the eyes. The patient has had multiple head scans, which have all been normal. The patient is scheduled to see an eye doctor later in the day and has a venogram scheduled to investigate a potentially smaller vein in the back of the head. The patient also mentions a history of elevated cortisol levels and is scheduled to have tubes placed in the ears in thenear future. The patient is experiencing significant distress due to the vision changes and is fearful of losing her vision. Physical Exam There were no vitals taken [...] normal. I have reviewed most recent labs 24 hour cortisol, genetic testing for psych meds, BMP Assessment and Plan Assessment & Plan Vision changes She experiences worsening vision changes with difficulty seeing, disorganized light filtering, and eye pain. Previous head scans are normal. The differential includes ocular or vestibular issues, possibly linked to eustachian tube dysfunction. She will see an superintendent sales today for evaluation, recommend bringing up her issues to them as well to likely assess pressures in the eye and examine retina. Consider referral to ophthalmology if necessary. Recommend an emergency room visit for sudden blurriness or double vision. Idiopathic Intracranial Hypertension (IIH) She has IIH with a planned venogram to assess a smaller vein in the back of the head for potential clots. Reports indicate an empty sella, suggesting a flattened pituitary gland. Proceed with the venogram to assess for potential clots. Not taking diamox, could trial using it again for a few days tosee if helps with vision. Elevated cortisol levels She has mildly elevated cortisol levels, possibly due to chronic stress or adrenal issues. No previous adrenal abnormalities are noted. Ordered an ACTH test to evaluate for potential adrenal issues. Entered referrals to Endo and Genetics earlier today as well in patient email. Vision changes Dysfunction of both eustachian tubes Benign intracranial hypertension syndrome Elevated urinary free cortisol level Anxiety about health Reiterated that her scans and labs have been reassuring. Suspect anxiety is magnifying a lot of thesymptoms as well. Wrap-Up Follow Up: Return for next week as scheduled. | For: next week as scheduled Time: I spent a total of 20-29 minutes (exact time 23 mins) on the date of service in [...] two unique identifiers. 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 this was [...] Description 09/14/2024 5:00 PM EDT Office Visit [address] [phone] Ludy Bob MD [address] [place] [address] [place] [phone] 10/09/2024 11:00 AM EDT Office Visit [address] [place] [phone] Ludy Bob MD [address] [place] [address] [place] [phone] 10/19/2024 2:20 PM EDT Office Visit [facility] [address] [place] [phone] Liyah Trinidad DO [address] [place] [address] 12/07/2024 3:30 PM EDT Office Visit Rheumatology [address] [place] [phone] Mar[facility] [address] [facility] [address] 03/25/2025 12:30 PM EDT Office Visit Cardiology [address] [place] [address] Larissa Germain PA-C [address] [place] [address] 05/26/2025 9:00 AM EST Office Visit Family Medicine [address] [place] [phone] Angela Raza MD [address] [place] [address] [place] [id number] Health Maintenance Due Date Last Done Comments [...] 07/02/2025 07/02/2022, 12/09/2017, 11/03/2012, Additional history exists Depression Monitoring 08/28/2025 08/28/2024, 024 GFR 09/07/2025 09/07/2024, 0 01/2025, 08/21/2024, Additional history exists Diabetes Screening 09/08/2027 09/07/2024, 0 08/22/2024, 08/21/2024, Additional history exists HPV (Gardasil) Vaccine [...] as of this encounter Visit Diagnoses Diagnosis Vision changes- Primary Unspecified visual disturbance Dysfunction of both eustachian tubes Dysfunction of Eustachian tube Benign intracranial hypertension syndrome Benign intracranial hypertension Elevated urinary free cortisol level Other nonspecific finding on examination of urine Anxiety about health documented in this encounter [...] Power of Attor wesley? No Care Teams [employer] Manager Relationship Specialty Start Date End Date Ludy Bob MD [address] [place] [address] [place] [phone] PCP - General Family Medicine 08/10/24 documented as of this encounter"
[2024-09-10] MEDS: GADOBUTROL 65ML VIAL IV ONE (11:44)
--- NOTE | 2024-09-10 12:20 | Magnetic Resonance Report ---
MR brain wo/w con HISTORY: 38 years-old Female MRI Brain with contrast acutely altered mental status with vision loss COMPARISON: 09/09/2024, 08/03/2024 TECHNIQUE: Multiplanar multisequence MRI of the brain was obtained with and without IV contrast FINDINGS: No retracted diffusion to suggest acute or subacute infarct. T2 shine through noted from the perivent ricular/corpus callosal lesions as below. Midline structures appear unremarkable. Enlargement of the adenoid tonsils with mild nasopharyngeal narrowing.There are new T2 hyperintense foci within the nalini ventricular white matter and also involving the corpus callosum measuring up to 1.4 cm on image 90 [address] 300. This largest lesion demonstrates peripheral enhancement. There are 2 adjacent similar appea ring lesions lateral aspect of right cerebellum measuring up to 10 mm. 2 periventricular, 2 right cer ebellar and a few scattered punctate subcortical foci are present. No acute intracranial hemorrhage, midline shift, abnormal extra-axial collection, hydrocephalus or in tra-axial mass. Orbits, skull and soft tissues. The mastoid air cells and paranasal sinuses are clear . Enlarged cervical chain lymph nodes measure up to 10 mm in short axis. IMPRESSION: 1. T2 hyperintense foci within the periventricular white matter, corpus callosum and right cerebellum , some of which demonstrate peripheral enhancement suggestive of demyelinating plaques with active ac [place] demyelination. Correlate clinically to exclude multiple sclerosis. These findings are new from . 2. No acute intracranial hemorrhage, acute or subacute infarct. 3. Mild nonspecific cervical chain adenopathy. ACT 112: Negative or not required by law. The above report was generated using voice recognition software. It may contain grammatical, syntax o r spelling errors. Electronically signed by: Jesu Jackson M.D. 09/10/2024 12:18 PM
--- NOTE | 2024-09-10 12:44 | Hospitalist Progress Note ---
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 MRI brain earlier on 08/03no acute finding Follows up with neurology as outpatient; workup being done for idiopathic intracranial hypertension. Neurology evaluated the patient; recommended MRI brain with TINA. MRI with contr ast showing T2 hyperintense foci within the periventricular white matter, corpus callosum and right cerebellum, some of which demonstrate peripheral enhancement suggestive of demyelinating plaques with active acute demyelination. TSH within normal limits Vitamin [id number] PG/mL Neurology to review MRI with TINA; will follow-up on recommendation Continue on vitamin B12 supplement continue pt/ot Continue other home meds Full code DVT prophylaxis Lovenox Please note the above document was generated using voice recognition software. It may contain grammatical, syntax or spelling errors. Any formal questions or concerns about the content, text or information contained within the body of this dictation should be directly addressed to the provider for clarification Admission and Anticipated Discharge Date Admission Date: September 09, 2024 Subjective Patient seen and examined at bedside. She is comfortable; not in distress She denies any focal weakness, vision changes at the present time. Denies chest pain or shortness of breath No significant events overnight Review of Systems Review of Systems: All systems reviewed & are unremarkable except as noted in Subjective Physical Exam Physical Exam: On physical examination; Constitutional: WD/WN, vitals as above, NAD, sitting up in bed, pleasant, conversing easily Respiratory: normal respiratory effort, lungs clear to auscultation, no wheeze, rales, rhonchi. Normal insp/exp effort, no accessory muscle use Cardiovascular: RRR, no murmur, no edema Vessels: no JVD or carotid bruit Chest: normal inspection of chest Abdomen: normal bowel sounds, soft, nontender, no hepatosplenomegaly Musculoskeletal: no cyanosis or clubbing, extremities motor strength 5/5 Skin: no rashes, warm and dry normal turgor Neurologic: PERRL, EOMI, accommodation nl, no face palsy, no dysarthria CN's II- XI intact bilaterally and moves all extremities. No focal weakness Results & Data Results & Data Vital Signs (Past 12 Hours) Vital Signs Temp Pulse Resp BP Pulse Ox O2 Del Method 09/10/24 07:39 36.8 C 81 16 111/77 94 Room Air
[2024-09-10] MEDS: CYANOCOBALAMIN (B-12) 500 MCG TABLET PO SCH (13:44)
[2024-09-10] MEDS ORDERED: LORazepam 0.5 MG TAB PO PRN (14:30)
[2024-09-10] MEDS ORDERED: methylPREDNISolone 10 mg/mL (For Ped Dose < 7mg) IV SCH (14:45)
[2024-09-10] MEDS: methylPREDNISolone 1,000 MG in NSS 250 ML IV SCH (15:58)
[2024-09-11 08:02] LABS: Hematocrit (blood only) 37.3 % (37.0-47.0); Hemoglobin 12.3 g/dl (12.0-16.0); Mean Corpuscular Hemoglobin 28.5 pg (25.0-34.0); Mean Corpuscular Volume 86.5 fL (80.0-100.0); Mean Platelet Volume 9.8 fL (9.4-12.4); Platelet Count 308 K/uL (130-400); RDW Coefficient of Variation 13.6 % (11.5-14.5); RDW Standard Deviation 41.9 fL (36.4-46.3); Red Blood Count 4.31 M/uL (4.20-5.40); White Blood Count 19.93 K/ul (4.8-10.8)
[2024-09-11 08:24] LABS: Calcium 9.2 mg/dl (8.6-10.3); Creatinine Clr Calc Pharmacy 191.9 ml/min; Potassium 3.9 mmol/L (3.5-5.1)
[2024-09-11 08:29] LABS: Basophils # (auto) 0.02 K/uL (0.00-0.20); Basophils % (auto) 0.1 %; Immature Granulocytes # (auto) 0.31 K/uL (0.01-0.20); Immature Granulocytes % (auto) 1.6 %; Lymphocytes # (auto) 1.28 K/uL (1.20-3.40); Lymphocytes % (auto) 6.4 %; Monocytes # (auto) 0.18 K/uL (0.11-0.59); Monocytes % (auto) 0.9 %; Neutrophils # (auto) 18.14 K/uL (1.40-6.50); Polychromasia 1+
--- NOTE | 2024-09-11 08:46 | Neurology Progress Note ---
Date of Service September 11, 2024 Assessment & Plan (1) Demyelinating disorder: Admission and Anticipated Discharge Date Admission Date: September 09, 2024 Subjective pt feeling little better. no new deficits or symptoms. resting comfortably. discussed the mri scan result. Dr. Braxton ordered LP to be done during this hospitalization. Results & Data Vital Signs (Past 12 Hours) Vital Signs Temp Pulse Resp BP Pulse Ox O2 Del Method 09/11/24 07:45 36.6 C 90 16 144/95 H 94 Room Air 09/10/24 22:02 36.3 C L 103 H 20 147/99 H 94 Room Air Exam (Neuro) Physical Exam: Neuro: Mental: AOx4, fluent speech, normal comprehension, no apraxia, no neglect CN: Full EOM, symmetric face, Motor: No abnormal movements, 5/5 t/o bilaterally Coord: intact grossly Gait: intact grossly Impression:38 yo female with likely demyelinating disorder (e.g. MS) in setting of new elsa enhancing lesions in brain. Recommendations: finish 3 days of solumedrol (day 2/3), then rhiannon with po prednisone, 60mg po daily x2 days and then 40mg po dailyx 2 days and then 20mg po daily x2 days and stop. pending LP for MS panel work up. do recommend getting mri C and T spine with ELSA for evaluation of spinal lesion. continue supportive care, Physical and occupational therapy. after solumedrol infusion is done, she can be discharged with follow up with Dr. Braxton. the LP result will take several days and no need for wait for the result prior to discharge. she can have outpt continue work up with Dr. Braxton in neuro clinic. Chart reviewed I have spent more than 50% educating patient about potential diagnosis and neurological evaluation and coordinating care with patient's treatment team. Total time spent (including chart review and coordination of care): 35 min (this includes chart review). PG Care Time/CCT Total # of Minutes Spent Total Time Spent with Patient: Total time spent is greater than 50% in coordination of care (as documented) at patient's floor/unit and/or counseling patient: Coding Level of Care Code 54986 SUB INP/OBS CARE 2/35MIN Diagnoses Demyelinating disorder G37.9
[2024-09-11] MEDS ORDERED: Nursing to Pharmacy Communication SCH (12:45)
--- NOTE | 2024-09-11 14:59 | Hospitalist Progress Note ---
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 MRI brain earlier on 08/03no acute finding Follows up with neurology as outpatient; workup being done for idiopathic intracranial hypertension. Neurology evaluated the patient; recommended MRI brain with TINA. MRI with contr ast showing T2 hyperintense foci within the periventricular white matter, corpus callosum and right cerebellum, some of which demonstrate peripheral enhancement suggestive of demyelinating plaques with active acute demyelination. TSH within normal limits Vitamin [id number] PG/mL MRI brain with contrast reviewed by neurology; possible likely demyelinating disorder in setting of new lesions. Started on Solu-Medrol. Plan to give 1000mg once a day for 3 days; then prednisone 60 mg p.o. daily twice a day, 40 mg p.o. daily twice a day and 20 mg p.o. twice a day. MRI of the C and T-spine ordered IR not available for lumbar puncture on 09/11; will see if it can be done as outpatient. Full code DVT prophylaxis Lovenox Please note the above document was generated using voice recognition software. It may contain grammatical, syntax or spelling errors. Any formal questions or concerns about the content, text or information contained within the body of this dictation should be directly addressed to the provider for clarification Admission and Anticipated Discharge Date Admission Date: September 09, 2024 Subjective Patient reports that she was not able to sleep last night. Symptoms similar to presentation No significant events overnight Review of Systems Review of Systems: All systems reviewed & are unremarkable except as noted in Subjective Physical Exam Physical Exam: On physical examination; Constitutional: WD/WN, vitals as above, NAD, sitting up in bed, pleasant, conversing easily Respiratory: normal respiratory effort, lungs clear to auscultation, no wheeze, rales, rhonchi. Normal insp/exp effort, no accessory muscle use Cardiovascular: RRR, no murmur, no edema Vessels: no JVD or carotid bruit Chest: normal inspection of chest Abdomen: normal bowel sounds, soft, nontender, no hepatosplenomegaly Musculoskeletal: no cyanosis or clubbing, extremities motor strength 5/5 Skin: no rashes, warm and dry normal turgor Neurologic: PERRL, EOMI, accommodation nl, no face palsy, no dysarthria CN's II- XI intact bilaterally and moves all extremities. No focal weakness Results & Data Results & Data Vital Signs (Past 12 Hours) Vital Signs Temp Pulse Resp BP Pulse Ox O2 Del Method 09/11/24 07:45 36.6 C 90 16 144/95 H 94 Room Air
[2024-09-11] MEDS: GADOBUTROL 65ML VIAL IV ONE (19:17)
--- NOTE | 2024-09-11 21:07 | Magnetic Resonance Report ---
EXAM: MR thoracic spine wo/w con CLINICAL HISTORY: pt states diagnosed with MS follow up. TECHNIQUE: Different pulse sequences were performed in different planes for the thoracic spine without and with contrast 12 ml Gadavist. Images were sent through PACs for diagnostic interpretation. COMPARISON: Prior MRI study dated 09/29/2021. FINDINGS: Preserved physiological kyphosis. There is no obvious spondylolysis or listhesis. The vertebral bodies show normal height and signal intensities. The scanned intervertebral discs show variable degrees of degeneration, denoted by low signal intensity on T2 WI, with a relative reduction of their heights. Marginal osteophytes are seen. Multiple Schmorl's nodes are seen at the vertebral end plates. Osseous hemangiomata And Modic II marrow change is seen otherwise no remarkable marrow changes. Posteriorly oriented orthostatic subcutaneous edema is seen opposite the lumbar vertebrae, exhibiting low signals on T1 WI and bright signals on T2 on STIRWI. Level by Level analysis: T1-T2: There is no focal disc pathology, spinal canal stenosis, or neural foraminal stenosis. T2-T3: There is no focal disc pathology, spinal canal stenosis, or neural foraminal stenosis. T3-T4: There is no focal disc pathology, spinal canal stenosis, or neural foraminal stenosis. T4-T5: There is no focal disc pathology, spinal canal stenosis, or neural foraminal stenosis. T5-T6: There is no focal disc pathology, spinal canal stenosis, or neural foraminal stenosis. T6-T7: There is no focal disc pathology, spinal canal stenosis, or neural foraminal stenosis. T7-T8: There is no focal disc pathology, spinal canal stenosis, or neural foraminal stenosis. T8-T9: There is no focal disc pathology, spinal canal stenosis, or neural foraminal stenosis. T9-10: There is no focal disc pathology, spinal canal stenosis, or neural foraminal stenosis. T10-T11: There is a 2.5 mm annular bulge and 43.2 mm left subarticular herniation indenting the anterior subarachnoid space, compromising subarticular recesses more on the left side with impingement of the emerging nerve roots. There is mild spinal canal stenosis. No neural foraminal stenosis. T11-12: There is a 2.6 mm annular bulge and 4.1 mm left central and subarticular herniation indenting the anterior subarachnoid space, compromising the subarticular recesses more on the left side. There is mild central canal stenosis with impingement of the emerging nerve roots.. No neural foraminal stenosis The thoracic spinal cord appears normal, with no evidence of an abnormal signal. Paravertebral soft tissues appear normal. IMPRESSION: 1. Spondylodegenerative thoracic disc disease. 2. Osseous hemangiomata and Modic II marrow change. 3. Multiple Schmorl's nodes. 4. Posteriorly oriented orthostatic subcutaneous edema is seen opposite the lumbar vertebrae. 5. T10-T11: There is a 2.5 mm annular bulge and 43.2 mm left subarticular herniation indenting the anterior subarachnoid space, compromising subarticular recesses more on the left side with impingement of the emerging nerve roots. There is mild spinal canal stenosis. No neural foraminal stenosis. 6. T11-12: There is a 2.6 mm annular bulge and 4.1 mm left central and subarticular herniation indenting the anterior subarachnoid space, compromising the subarticular recesses more on the left side. There is mild central canal stenosis with impingement of the emerging nerve roots.. No neural foraminal stenosis 7. The reported findings explain the current clinical status. 8. The comparison is consistent with a relatively progressive course. Electronically signed by Bhavesh Russo 09-11-2024 9:07 PM
--- NOTE | 2024-09-11 21:17 | Magnetic Resonance Report ---
EXAM: MR cervical spine wo/w con CLINICAL HISTORY: pt states diagnosed with MS follow up. TECHNIQUE: [id number] multiplanar, multiecho MRI of the cervical spine was performed with and without contrast 12 ml Gadavist. Sequences were obtained without and with contrast in sagittal, coronal /OBX.5.1.1OBX.5.1.2 axial planes. Images were submitted through PACs for diagnostic interpretation./OBX.5.1.2/OBX.5.1 COMPARISON: Prior MRI study dated 09/29/2021. FINDINGS: Obliteration of the physiological cervical lordosis denoting spasm of the paraspinal muscles. No developmental canal stenosis. The scanned intervertebral discs show variable degrees of degeneration, denoted by low signal intensity on T2 WI, with a relative reduction of their heights. Marginal osteophytes are seen. Osseous hemangiomata at T2 and T3 vertebral bddies. Multilevel Modic II marrow changes. Level by Level analysis: C2-C3: There is no focal disc pathology, spinal canal stenosis, or neural foraminal stenosis. C3-C4: There is 1.8 mm annular bulge indnting the anterior subarachnoid space with mild bilateral neural foraminal stenosis with impingement of the emerging nerve roots. Prominent uncinate processes augment effects. C4-C5: There is a 2.2 mm central protrusion/osteophytic complex indenting the anterior subarachnoid space. No spinal canal stenosis, or neural foraminal stenosis. C5-C6: There is a 2.7 mm annular bulge and a 3.3 mm central and left central and subarticular herniation/osteophytic complex indenting the anterior subarachnoid space, compromising the subarticular recesses more on the left side. There is mild spinal canal stenosis and mild bilateral neural foraminal stenosis with impingement of the emerging nerve roots. Prominent uncinate processes augment effects. C6-C7: There is a 1.7 mm annular bulge and a 3 mm central protrusion/osteophytic complex indenting the anterior subarachnoid space with mild bilateral neural foraminal stenosis with impingement of the emerging nerve roots. Prominent uncinate processes augment effects. C7-T1: There is no focal disc pathology, spinal canal stenosis, or neural foraminal stenosis. The cervical cord shows inhomogeneous signal intensity, could be artifactual. No enhancing lesions are seen. A 6.0 mm round T1 hypointense/T2 hyperintense lesion is seen in the right cerebellar hemisphere. The visualized brainstem and cervical-medullary junction are normal. No Chiari- malformation. Standard craniometric measures of the craniovertebral junction. No retro or paraspinal soft tissue masses. Intact anterior longitudinal ligament, posterior longitudinal ligament, alar ligament/cruciate ligament/tectal membrane, atlantooccipital, atlantoaxial, interspinous ligament and ligamentum nuchae. No definite current MRI features to suggest ligamentous injury. Nasopharyngeal mucosal thickening is seen. Further workup is recommended. IMPRESSION: 1. The cervical cord shows inhomogeneous signal intensity, could be artifactual, cannot totally exclude abnormal signals denoting MS. No enhancing lesions are seen. 2. A 6.0 mm round T1 hypointense/T2 hyperintense lesion is seen in the right cerebellar hemisphere. Suggest a dedicated study. 3. Osseous hemangiomata and Modic II marrow change. 4. Nasopharyngeal mucosal thickening is seen. Further workup is recommended. 5. Multilevel cervical disc pathologies at the C3-C4 through C6-C7 levels with effects exerted upon the spinal canal, subarticular recesses, and neural foramina with impingement of the emerging nerve roots. Arthropathic uncovertebral joints augment effects. Findings are most appreciated at the C5-C6 level. 6. The comparison is consistent with a progressive course. Electronically signed by Bhavesh Russo 09-11-2024 9:16 PM
[2024-09-12 07:29] LABS: Hematocrit (blood only) 38.2 % (37.0-47.0); Hemoglobin 12.1 g/dl (12.0-16.0); Mean Corpuscular Hemoglobin 28.4 pg (25.0-34.0); Mean Corpuscular Hgb Conc 31.7 g/dL (32.0-36.0); Mean Corpuscular Volume 89.7 fL (80.0-100.0); Mean Platelet Volume 9.7 fL (9.4-12.4); Platelet Count 323 K/uL (130-400); RDW Coefficient of Variation 13.8 % (11.5-14.5); RDW Standard Deviation 44.7 fL (36.4-46.3); Red Blood Count 4.26 M/uL (4.20-5.40); White Blood Count 24.58 K/ul (4.8-10.8)
[2024-09-12 07:44] LABS: BUN Creatinine Ratio 36.5 (10-20); Calcium 9.1 mg/dl (8.6-10.3); Creatinine Clr Calc Pharmacy 184.5 ml/min; Potassium 4.3 mmol/L (3.5-5.1)
[2024-09-12 07:52] LABS: Basophils # (auto) 0.05 K/uL (0.00-0.20); Basophils % (auto) 0.2 %; Immature Granulocytes # (auto) 0.69 K/uL (0.01-0.20); Immature Granulocytes % (auto) 2.8 %; Lymphocytes # (auto) 1.82 K/uL (1.20-3.40); Lymphocytes % (auto) 7.4 %; Monocytes # (auto) 0.53 K/uL (0.11-0.59); Monocytes % (auto) 2.2 %; Neutrophils # (auto) 21.49 K/uL (1.40-6.50); Neutrophils % (auto) 87.4 %
--- NOTE | 2024-09-12 09:44 | Hospitalist Progress Note ---
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 MRI brain earlier on 08/03no acute finding Follows up with neurology as outpatient; workup being done for idiopathic intracranial hypertension. Neurology evaluated the patient; recommended MRI brain with TINA. MRI with contr ast showing T2 hyperintense foci within the periventricular white matter, corpus callosum and right cerebellum, some of which demonstrate peripheral enhancement suggestive of demyelinating plaques with active acute demyelination. TSH within normal limits Vitamin [id number] PG/mL MRI brain with contrast reviewed by neurology; possible likely demyelinating disorder in setting of new lesions. Started on Solu-Medrol. Plan to give 1000mg once a day for 3 days; then prednisone 60 mg p.o. daily twice a day, 40 mg p.o. daily twice a day and 20 mg p.o. twice a day. MRI of the C-spine and T-spine ordered as per recommendation by neurology; no additional lesions visualized. Patient has mild spinal canal stenosis at T10- T11 and T11 -T12 IR not available for lumbar puncture on 09/11; Plan to be discussed with IR on 09/14. If it cannot be done as inpatient; plan to do it as outpatient.. Discussed with patient's primary neurologist Dr. Braxton Continue vitamin b12 supplements Full code DVT prophylaxis Lovenox Please note the above document was generated using voice recognition software. It may contain grammatical, syntax or spelling errors. Any formal questions or concerns about the content, text or information contained within the body of this dictation should be directly addressed to the provider for clarification Admission and Anticipated Discharge Date Admission Date: September 09, 2024 Subjective Patient seen and examined at bedside. Patient reports that her vision is slightly better compared to previous days. Review of Systems Review of Systems: All systems reviewed & are unremarkable except as noted in Subjective Physical Exam Physical Exam: On physical examination; Constitutional: WD/WN, vitals as above, NAD, sitting up in bed, pleasant, conversing easily Respiratory: normal respiratory effort, lungs clear to auscultation, no wheeze, rales, rhonchi. Normal insp/exp effort, no accessory muscle use Cardiovascular: RRR, no murmur, no edema Vessels: no JVD or carotid bruit Chest: normal inspection of chest Abdomen: normal bowel sounds, soft, nontender, no hepatosplenomegaly Musculoskeletal: no cyanosis or clubbing, extremities motor strength 5/5 Skin: no rashes, warm and dry normal turgor Neurologic: PERRL, EOMI, accommodation nl, no face palsy, no dysarthria CN's II- XI intact bilaterally and moves all extremities. No focal weakness Results & Data Results & Data Vital Signs (Past 12 Hours) Vital Signs Temp Pulse Resp BP Pulse Ox O2 Del Method 09/12/24 07:56 36.6 C 64 16 143/81 H 93 Room Air
--- NOTE | 2024-09-12 12:20 | Electrocardiogram Report ---
Test Reason : Blood Pressure : */* mmHG Vent. Rate : 92 BPM Atrial Rate : 92 BPM P-R Int : 174 ms QRS Dur : 76 ms QT Int : 352 ms P-R-T Axes : 18 2 22 degrees QTcB Int : 435 ms Normal sinus rhythm Moderate voltage criteria for LVH, may be normal variant Borderline ECG When compared with ECG of 25-Aug-2024 05:21, No significant change was found Confirmed by Justa Wiggins ([id number]) on 09/12/2024 12:20:17 PM Referred By: REFERRED SELF Confirmed By: Justa Wiggins
[2024-09-13] MEDS: predniSONE 20 MG TAB PO SCH (08:49)
[2024-09-13] MEDS: OPTIRAY 320 125ml IV ONE (09:59)
--- NOTE | 2024-09-13 10:25 | CT Scan Report ---
EXAM: CT Head Venogram With Intravenous Contrast INDICATION: TECHNIQUE: Axial computed tomography images of the head venogram with intravenous contrast. Sagittal and coronal reformatted images were created and reviewed. This CT exam was performed using one or more of the following dose reduction techniques: automated exposure control, adjustment of the mA and/or kV according to patient size, and/or use of iterative reconstruction technique. 120 cc Optiray 320 utilized intravenously without reaction. COMPARISON: MRI brain 09/09/2024 FINDINGS: Patent dural venous sinuses. There is mild edema in the right centrum semiovale. No hemorrhage or mass effect. No extra-axial fluid collection or acute territorial infarct. No hydrocephalus or shift. Normal arterial enhancement. No aneurysm noted. No osseous abnormality identified. IMPRESSION: 1. Patent dural venous sinuses. 2. Mild edema right centrum semiovale. This is nonspecific and could reflect infarct or acute demyelinating process. ACT 112: N/A Electronically signed by Skylar Clarke 09-13-2024 10:24 AM
[2024-09-13] MEDS: FAMOTIDINE 40 MG TABLET PO SCH (12:25)
--- NOTE | 2024-09-13 14:29 | Hospitalist Progress Note ---
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 MRI brain earlier on 08/03no acute finding Follows up with neurology as outpatient; workup being done for idiopathic intracranial hypertension. Neurology evaluated the patient; recommended MRI brain with TINA. MRI with contr ast showing T2 hyperintense foci within the periventricular white matter, corpus callosum and right cerebellum, some of which demonstrate peripheral enhancement suggestive of demyelinating plaques with active acute demyelination. TSH within normal limits Vitamin [id number] PG/mL MRI brain with contrast reviewed by neurology; possible likely demyelinating disorder in setting of new lesions. s/p 3 days of iv methylprednisolone; currently on prednisone 60 mg p.o. daily twice a day, 40 mg p.o. daily twice a day and 20 mg p.o. twice a day. MRI of the C-spine and T-spine ordered as per recommendation by neurology; no additional lesions visualized. Patient has mild spinal canal stenosis at T10- T11 and T11 -T12 IR not available for lumbar puncture on 09/11; Plan to obtain with IR on 09/14. If it cannot be done as inpatient; plan to do it as outpatient.. Discussed with patient's primary neurologist Dr. Braxton Continue vitamin b12 supplements Full code DVT prophylaxis Lovenox on hold for possible LP Please note the above document was generated using voice recognition software. It may contain grammatical, syntax or spelling errors. Any formal questions or concerns about the content, text or information contained within the body of this dictation should be directly addressed to the provider for clarification Admission and Anticipated Discharge Date Admission Date: September 09, 2024 Subjective Patient seen and examined at bedside. She reports episodic palpitation and epigastric discomfort at times. Vital signs are stable Vision gradually improving. Review of Systems Review of Systems: All systems reviewed & are unremarkable except as noted in Subjective Physical Exam Physical Exam: On physical examination; Constitutional: WD/WN, vitals as above, NAD, sitting up in bed, pleasant, conversing easily Respiratory: normal respiratory effort, lungs clear to auscultation, no wheeze, rales, rhonchi. Normal insp/exp effort, no accessory muscle use Cardiovascular: RRR, no murmur, no edema Vessels: no JVD or carotid bruit Chest: normal inspection of chest Abdomen: normal bowel sounds, soft, nontender, no hepatosplenomegaly Musculoskeletal: no cyanosis or clubbing, extremities motor strength 5/5 Skin: no rashes, warm and dry normal turgor Neurologic: PERRL, EOMI, accommodation nl, no face palsy, no dysarthria CN's II- XI intact bilaterally and moves all extremities. No focal weakness Results & Data Results & Data Vital Signs (Past 12 Hours) Vital Signs Temp Pulse Resp BP Pulse Ox O2 Del Method 09/13/24 08:00 36.4 C L 67 16 139/88 95 Room Air
[2024-09-14 07:49] LABS: Hematocrit (blood only) 34.7 % (37.0-47.0); Hemoglobin 10.9 g/dl (12.0-16.0); Mean Corpuscular Hemoglobin 28.5 pg (25.0-34.0); Mean Corpuscular Hgb Conc 31.4 g/dL (32.0-36.0); Mean Corpuscular Volume 90.6 fL (80.0-100.0); Mean Platelet Volume 10.1 fL (9.4-12.4); Platelet Count 255 K/uL (130-400); RDW Coefficient of Variation 14.1 % (11.5-14.5); RDW Standard Deviation 46.2 fL (36.4-46.3); Red Blood Count 3.83 M/uL (4.20-5.40); White Blood Count 15.56 K/ul (4.8-10.8)
[2024-09-14 07:56] LABS: BUN Creatinine Ratio 32.4 (10-20); Creatinine Clr Calc Pharmacy 135.1 ml/min; Potassium 3.8 mmol/L (3.5-5.1)
[2024-09-14 08:15] LABS: Basophils # (auto) 0.04 K/uL (0.00-0.20); Basophils % (auto) 0.3 %; Eosinophils # (auto) 0.01 K/uL (0.00-0.50); Eosinophils % (auto) 0.1 %; Immature Granulocytes # (auto) 0.89 K/uL (0.01-0.20); Immature Granulocytes % (auto) 5.7 %; Lymphocytes # (auto) 3.82 K/uL (1.20-3.40); Lymphocytes % (auto) 24.6 %; Monocytes # (auto) 0.84 K/uL (0.11-0.59); Monocytes % (auto) 5.4 %; Neutrophils # (auto) 9.96 K/uL (1.40-6.50); Neutrophils % (auto) 63.9 %
--- NOTE | 2024-09-14 08:33 | Electrocardiogram Report ---
Test Reason : Blood Pressure : */* mmHG Vent. Rate : 67 BPM Atrial Rate : 67 BPM P-R Int : 144 ms QRS Dur : 78 ms QT Int : 416 ms P-R-T Axes : 21 64 10 degrees QTcB Int : 439 ms Normal sinus rhythm Normal ECG When compared with ECG of 11-Sep-2024 21:27, QRS axis Shifted right Confirmed by Soto Castaneda ([id number]) on 09/14/2024 8:31:13 AM Referred By: REFERRED SELF Confirmed By: Soto Castaneda
[2024-09-14] MEDS: ALUMINUM/MAGNESIUM SUSP 30 ML UDC PO STA (09:18)
[2024-09-14] MEDS: PANTOprazole 40 MG TAB PO SCH (09:57)
--- NOTE | 2024-09-14 15:02 | Hospitalist Progress Note ---
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 MRI brain earlier on 08/03no acute finding Follows up with neurology as outpatient; workup being done for idiopathic intracranial hypertension. Neurology evaluated the patient; recommended MRI brain with TINA. MRI with contr ast showing T2 hyperintense foci within the periventricular white matter, corpus callosum and right cerebellum, some of which demonstrate peripheral enhancement suggestive of demyelinating plaques with active acute demyelination. TSH within normal limits Vitamin [id number] PG/mL MRI brain with contrast reviewed by neurology; possible likely demyelinating disorder in setting of new lesions. s/p 3 days of iv methylprednisolone; currently on prednisone 60 mg p.o. daily twice a day, 40 mg p.o. daily twice a day and 20 mg p.o. twice a day. MRI of the C-spine and T-spine ordered as per recommendation by neurology; no additional lesions visualized. Patient has mild spinal canal stenosis at T10- T11 and T11 -T12 IR not available for lumbar puncture on 09/11; Plan to obtain with IR on 09/14 which was unavailable again. Discussed with Radiology again to set up; to be done possibly 09/15 or 09/16 depending on the avaiablitlity Continue Vitamin b12 supplement Started on Protonix bid for reflux. Mood disorder- continue on escitalopram; psychiatry recommended increasing the dose to 10mg. However, patient doesn't want to increase the dose. Full code DVT prophylaxis Lovenox on hold for possible LP Please note the above document was generated using voice recognition software. It may contain grammatical, syntax or spelling errors. Any formal questions or concerns about the content, text or information contained within the body of this dictation should be directly addressed to the provider for clarification Admission and Anticipated Discharge Date Admission Date: September 09, 2024 Subjective Patient seen and examined at bedside. reports epigastric pain intermittently. No new neurological symptoms Review of Systems Review of Systems: All systems reviewed & are unremarkable except as noted in Subjective Physical Exam Physical Exam: On physical examination; Constitutional: WD/WN, vitals as above, NAD, sitting up in bed, pleasant, conversing easily Respiratory: normal respiratory effort, lungs clear to auscultation, no wheeze, rales, rhonchi. Normal insp/exp effort, no accessory muscle use Cardiovascular: RRR, no murmur, no edema Vessels: no JVD or carotid bruit Chest: normal inspection of chest Abdomen: normal bowel sounds, soft, nontender, no hepatosplenomegaly Musculoskeletal: no cyanosis or clubbing, extremities motor strength 5/5 Skin: no rashes, warm and dry normal turgor Neurologic: PERRL, EOMI, accommodation nl, no face palsy, no dysarthria CN's II- XI intact bilaterally and moves all extremities. No focal weakness Results & Data Results & Data Vital Signs (Past 12 Hours) Vital Signs Temp Pulse Resp BP Pulse Ox O2 Del Method 09/14/24 09:03 36.9 C 59 L 18 168/92 H 95 Room Air
[2024-09-15] MEDS: predniSONE 20 MG TAB PO SCH (08:05)
--- NOTE | 2024-09-15 13:54 | Fluoroscopy Report ---
LUMBAR PUNCTURE UNDER FLUOROSCOPY CLINICAL HISTORY: Intracranial hypertension; evaluate for MS PROCEDURE: Procedure and risks were explained. Informed consent was obtained. A final timeout was com pleted. The patient was placed prone on the fluoroscopic exam table. The lower lumbar region was prep ped and draped in sterile fashion. 1% lidocaine was utilized for skin anesthesia. Utilizing fluoroscopic guidance, a 20-gauge spinal needle was advanced into the intrathecal space at the L2-3 disc space level. Fluoroscopic spot images were obtained. Opening pressure was measured at 2 3 cm H2O, unchanged since prior lumbar puncture. Approximately 8 mL of clear CSF fluid was removed an d sent to lab for analysis. The needle was removed and Band-Aid applied. The patient tolerated the pr ocedure well. Vital signs will be monitored postprocedure. Fluoroscopy time 12 seconds. Study dosed 18.04 mGy. IMPRESSION: Lumbar puncture as above. Performed, dictated, and signed by Balbir Narvaez PA-C; to be co-signed by Dr. Geremias Andrews. Electronically signed by: Geremias Andrews M.D. 09/15/2024 2:04 PM
[2024-09-15 14:03] LABS: Appearance CSF Clear; CSF Count Tube # 3; CSF Xanthrochromic No xanthochromia; Color CSF Colorless; Red Blood Cell CSF Manual 8 (0); White Blood Cell CSF Manual 1 (0-5)
[2024-09-15 14:04] LABS: Total Protein CSF 24.4 mg/dl (15-45)
--- NOTE | 2024-09-15 14:04 | Hospitalist Progress Note ---
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 MRI brain earlier on 08/03no acute finding Follows up with neurology as outpatient; workup being done for idiopathic intracranial hypertension. Neurology evaluated the patient; recommended MRI brain with TINA. MRI with contrast showing T2 hyperintense foci within the periventricular white matter, corpus callosum and right cerebellum, some of which demonstrate peripheral enhancement suggestive of demyelinating plaques with active acute demyelination. TSH within normal limits Vitamin [id number] PG/mL MRI brain with contrast reviewed by neurology; possible likely demyelinating disorder in setting of new lesions. s/p 3 days of iv methylprednisolone; currently on prednisone 60 mg p.o. daily twice a day, 40 mg p.o. daily twice a day and 20 mg p.o. twice a day. MRI of the C-spine and T-spine ordered as per recommendation by neurology; no additional lesions visualized. Patient has mild spinal canal stenosis at T10- T11 and T11 -T12 Underwent lumbar puncture on 09/15/2024 by radiology; multiple sclerosis panel awaited.Result to be followed up by neurology. Continue Vitamin b12 supplement Started on Protonix bid for reflux. Venous duplex ordered to evaluate for DVT. Mood disorder- continue on escitalopram; psychiatry recommended increasing the dose to 10mg. However, patient doesn't want to increase the dose. Full code DVT prophylaxis Lovenox on hold for possible LP Please note the above document was generated using voice recognition software. It may contain grammatical, syntax or spelling errors. Any formal questions or concerns about the content, text or information contained within the body of this dictation should be directly addressed to the provider for clarification Admission and Anticipated Discharge Date Admission Date: September 09, 2024 Subjective Patient seen and examined at bedside She reports intermittent epigastric pain. However it has improved compared to previous day Reports bowel movement; no melena Review of Systems Review of Systems: All systems reviewed & are unremarkable except as noted in Subjective Physical Exam Physical Exam: On physical examination; Constitutional: WD/WN, vitals as above, NAD, sitting up in bed, pleasant, conversing easily Respiratory: normal respiratory effort, lungs clear to auscultation, no wheeze, rales, rhonchi. Normal insp/exp effort, no accessory muscle use Cardiovascular: RRR, no murmur, no edema Vessels: no JVD or carotid bruit Chest: normal inspection of chest Abdomen: normal bowel sounds, soft, nontender, no hepatosplenomegaly Musculoskeletal: no cyanosis or clubbing, extremities motor strength 5/5 Skin: no rashes, warm and dry normal turgor Neurologic: PERRL, EOMI, accommodation nl, no face palsy, no dysarthria CN's II- XI intact bilaterally and moves all extremities. No focal weakness Results & Data Results & Data Vital Signs (Past 12 Hours) Vital Signs Temp Pulse Resp BP Pulse Ox O2 Del Method 09/15/24 07:21 36.5 C 67 15 138/89 96 Room Air
--- NOTE | 2024-09-15 14:37 | Ultrasound Report ---
BILATERAL LOWER EXTREMITY VENOUS DOPPLER HISTORY: Acute pain and swelling of the right lower leg rule out dvt COMPARISON STUDY: None. FINDINGS: There is normal compressibility, flow, and augmentation within the bilateral lower extremit y deep venous systems. IMPRESSION: No DVT within the right or left lower extremity. ACT 112: Negative or not required by law. Electronically signed by: Jesu Jackson M.D. 09/15/2024 2:35 PM
--- NOTE | 2024-09-15 16:11 | Neurology Progress Note ---
Date of Service September 15, 2024 Assessment & Plan (1) Demyelinating disorder: Plan 38-year-old female with a history of idiopathic intracranial hypertension, top normal opening pressure recently, current presentation likely more consistent with demyelinating disease, probable multiple sclerosis based on imaging findings. Lumbar puncture completed earlier today, MS panel results will take about 1 week. I have ordered a neuromyelitis optica spectrum, evaluation, serology study and additional labs to look for MS mimics (RYAN 12, ANCA, RF, Lyme, FLAQUITA, RPR) Discussed with patient potential treatment options going forward depending if her CSF analysis is supportive of multiple sclerosis and predictive of relapse or disease activity going forward. Ultimate treatment decision will be made as an outpatient, after all data is available. Patient may follow-up with me in neurology clinic in 2 to 3 weeks after discharge. Admission and Anticipated Discharge Date Admission Date: September 09, 2024 Subjective Follow-up regarding probable multiple sclerosis I have reviewed patient's most recent MRIs, including brain, cervical, and thoracic spine done during this hospitalization. Her brain MRI does reveal multiple foci of T2/FLAIR intensities within the periventricular white matter, corpus callosum, right cerebellum, some of which demonstrate peripheral enhancement consistent with acute demyelinating plaques. No definitive evidence of spinal cord lesions. There is evidence of degenerative disc disease within the cervical and thoracic spine, most notable at C5-6 and from T10-T12. I reviewed this patient's lumbar puncture completed today as well, opening pressure 23 cm H2O. Initial CSF results unremarkable, MS panel pending. I discussed the above test results directly with the patient at bedside today. The results of the MS panel will likely take about a week. She is currently feeling modestly improved after receiving corticosteroids. Results & Data Vital Signs (Past 12 Hours) Vital Signs Temp Pulse Resp BP Pulse Ox O2 Del Method 09/15/24 14:37 36.7 C 69 17 124/79 96 Room Air 09/15/24 07:21 36.5 C 67 15 138/89 96 Room Air Exam (Neuro) Neurologic: Oriented to:: Person, Place and Time Memory: Short Term Intact and Remote Intact Attention: Span Intact and Concentration Intact Speech Fluency: negative Dysarthria or Dysfluency Speech Aphasia: negative Aphasia Fund of Knowledge: Current Events, Past History and Vocabulary Cranial Nerves: Normal II, III, IV, , V, VII, VIII, IX, X, XI and XII Motor Strength: Normal Lower Extremities and Normal Upper Extremities Muscle Bulk/Involuntary Movements: No Involuntary Movements; negative Muscle Atrophy Coordination: negative Finger-Nose Abnormal or Heel-Michaud Abnormal Coding Level of Care Code 29130 SUB INP/OBS CARE 35MIN Diagnoses Demyelinating disorder G37.9 Time Spent (min) 35 Comment Total time includes patient contact, chart review, counseling, note preparation
[2024-09-16 07:49] LABS: Hemoglobin 12.5 g/dl (12.0-16.0); Mean Corpuscular Hemoglobin 28.7 pg (25.0-34.0); Mean Corpuscular Hgb Conc 32.1 g/dL (32.0-36.0); Mean Corpuscular Volume 89.4 fL (80.0-100.0); Mean Platelet Volume 9.6 fL (9.4-12.4); Platelet Count 264 K/uL (130-400); RDW Coefficient of Variation 13.8 % (11.5-14.5); RDW Standard Deviation 45.1 fL (36.4-46.3); Red Blood Count 4.36 M/uL (4.20-5.40); White Blood Count 17.49 K/ul (4.8-10.8)
[2024-09-16 08:06] LABS: Basophils # (auto) 0.07 K/uL (0.00-0.20); Basophils % (auto) 0.4 %; Eosinophils # (auto) 0.29 K/uL (0.00-0.50); Eosinophils % (auto) 1.7 %; Immature Granulocytes # (auto) 0.63 K/uL (0.01-0.20); Immature Granulocytes % (auto) 3.6 %; Lymphocytes % (auto) 36.6 %; Monocytes # (auto) 0.67 K/uL (0.11-0.59); Monocytes % (auto) 3.8 %; Neutrophils # (auto) 9.43 K/uL (1.40-6.50); Neutrophils % (auto) 53.9 %; Polychromasia 1+
[2024-09-16 08:08] LABS: BUN Creatinine Ratio 24.2 (10-20); Creatinine Clr Calc Pharmacy 145.4 ml/min; Potassium 3.8 mmol/L (3.5-5.1)
[2024-09-16] MEDS: ACETAMINOPHEN 325 MG TAB PO PRN (08:32)
--- NOTE | 2024-09-16 17:04 | Hospitalist Progress Note ---
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 MRI brain earlier on 08/03no acute finding Follows up with neurology as outpatient; workup being done for idiopathic intracranial hypertension. Neurology evaluated the patient; recommended MRI brain with TINA. MRI with contrast showing T2 hyperintense foci within the periventricular white matter, corpus callosum and right cerebellum, some of which demonstrate peripheral enhancement suggestive of demyelinating plaques with active acute demyelination. TSH within normal limits Vitamin [id number] PG/mL MRI brain with contrast reviewed by neurology; possible likely demyelinating disorder in setting of new lesions. s/p 3 days of iv methylprednisolone; currently on prednisone 60 mg p.o. daily twice a day, 40 mg p.o. daily twice a day and 20 mg p.o. twice a day and stop. MRI of the C-spine and T-spine ordered as per recommendation by neurology; no additional lesions visualized. Patient has mild spinal canal stenosis at T10- T11 and T11 -T12 Underwent lumbar puncture on 09/15/2024 by radiology; multiple sclerosis panel awaited. Result to be followed up by neurology. Continue Vitamin b12 supplement Started on Protonix bid for reflux. Venous duplex ordered to evaluate for DVT - neg for dvt. f/u w/ neuro on dc. Mood disorder- continue on escitalopram; psychiatry recommended increasing the dose to 10mg. However, patient doesn't want to increase the dose. Full code DVT prophylaxis Lovenox Please note the above document was generated using voice recognition software. It may contain grammatical, syntax or spelling errors. Any formal questions or concerns about the content, text or information contained within the body of this dictation should be directly addressed to the provider for clarification Admission and Anticipated Discharge Date Admission Date: September 09, 2024 Subjective Patient seen and examined at bedside She reports headache in AM, relieved w/ tylenol to some extent. Reports bowel movement; no melena, reports eating ok. Physical Exam Physical Exam: Constitutional: WD/WN, vitals as above, NAD, sitting up in bed, pleasant, conversing easily Respiratory: normal respiratory effort, lungs clear to auscultation, no wheeze, rales, rhonchi. Normal insp/exp effort, no accessory muscle use Cardiovascular: RRR, no murmur, no edema Vessels: no JVD or carotid bruit Chest: normal inspection of chest Abdomen: normal bowel sounds, soft, nontender, no hepatosplenomegaly Musculoskeletal: no cyanosis or clubbing, extremities motor strength 5/5 Skin: no rashes, warm and dry normal turgor Neurologic: PERRL, EOMI, accommodation nl, no face palsy, no dysarthria CN's II- XI intact bilaterally and moves all extremities. No focal weakness Results & Data Results & Data Vital Signs (Past 12 Hours) Vital Signs Temp Pulse Pulse Resp BP BP Pulse Ox 09/16/24 14:00 36.7 C 98 H 20 153/104 H 96 09/16/24 07:31 36.8 C 62 18 126/83 99 O2 Del Method 09/16/24 14:00 Room Air 09/16/24 07:31 Room Air
--- NOTE | 2024-09-16 18:23 | Communication Note ---
Date of Service: September 16, 2024 Pt had transient episode of palpitation per RN, hemodynamics stable, no sob or chest discomfort. Will monitor her on tele, get ekg, trop and mg level. likely will need zio patch as OP. Pt was examined at bedside, appears comfortable, reports intermittent palpitations lasting less than 1 min. denies new chest discomfort or pain. Pt reports upper belly discomfort has been improving after PPI has been started.
[2024-09-16 18:49] LABS: Magnesium 2.2 mg/dl (1.7-2.4)
[2024-09-16 18:55] LABS: Troponin I High Sensitivity < 2.3 pg/ml (0-14)
[2024-09-17 00:18] VITALS: RESP 18
[2024-09-17 07:50] VITALS: TEMP 98.2
[2024-09-17] MEDS: predniSONE 20 MG TAB PO SCH (09:34)
--- NOTE | 2024-09-17 11:25 | Discharge Summary ---
Date of Service September 17, 2024 Admission HPI Per Admitting Provider History of provide interviewed the patient and chart review Past medical history of psoriasis, HLA-B27 positive, PCOS, mild intermittent asthma, essential hypertension, GERD, vitamin D deficiency, fibromyalgia, apical migraine, atypical chest pain, prolonged QT interval, eustachian tube dysfunction Elevated recently earlier in August with multiple complaint; unremarkable workup during the hospitalization Patient was recently seen with complaints of vision issues. Patient reports disorganized, fluctuating vision change; Reports intermittent blurring. She also reports ear fullness, periodic vertigo and dizziness as well. She reports that the symptoms has been going on for about 6 weeks She reports abdominal discomfort which has improved compared to past few weeks She denies any focal weakness, fever, chills, chest pain or urinary symptoms She was also seen by her primary care doctor recently for similar issues. On presentation to ED, she is afebrile, normotensive and saturating well on room air. Lab work in the ED was unremarkable MRI brain showed mild white matter abnormalities involving the centrum semiovale bilaterally; due to chronic small vessel ischemic disease; though multiple sclerosis is possible. 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 Patient had MRI done earlier in July which did not show those findings. Patient was admitted to the medical floor for further evaluation Admission Exam Per Admitting Provider Constitutional: WD/WN, vitals as above, NAD, sitting up in bed, pleasant, conversing easily Respiratory: normal respiratory effort, lungs clear to auscultation, no wheeze, rales, rhonchi. Normal insp/exp effort, no accessory muscle use Cardiovascular: RRR, no murmur, no edema Vessels: no JVD or carotid bruit Chest: normal inspection of chest Abdomen: normal bowel sounds, soft, nontender, no hepatosplenomegaly Musculoskeletal: no cyanosis or clubbing, extremities motor strength 5/5 Skin: no rashes, warm and dry normal turgor Neurologic: PERRL, EOMI, accommodation nl, no face palsy, no dysarthria CN's II- XI intact bilaterally and moves all extremities. No focal weakness Principal Diagnosis Vision issues Dizziness Abnormal MRI Brain finding Discharge Exam Constitutional: WD/WN, vitals as above, NAD, sitting up in bed, pleasant, conversing easily Respiratory: normal respiratory effort, lungs clear to auscultation, no wheeze, rales, rhonchi. Normal insp/exp effort, no accessory muscle use Cardiovascular: RRR, no murmur, no edema Vessels: no JVD or carotid bruit Chest: normal inspection of chest Abdomen: normal bowel sounds, soft, nontender, no hepatosplenomegaly Musculoskeletal: no cyanosis or clubbing, extremities motor strength 5/5 Skin: no rashes, warm and dry normal turgor Neurologic: PERRL, EOMI, accommodation nl, no face palsy, no dysarthria CN's II- XI intact bilaterally and moves all extremities. No focal weakness Discharge Data Allergies Allergy/AdvReac Type Severity Reaction Status Date / Time amoxicillin Allergy Severe ANAPHYLAXIS Verified 08/25/24 17:31 clavulanic acid Allergy Severe ANAPHYLAXIS Verified 08/25/24 17:31 doxycycline Allergy Intermediate Rash Verified 08/25/24 17:31 fish derived Allergy Intermediate Hives Verified 08/25/24 17:31 metronidazole Allergy Intermediate rash Verified 08/25/24 17:31 sulfamethoxazole Allergy Intermediate tongue Verified 08/25/24 17:31 [From Bactrim] swelling trimethoprim [From Bactrim] Allergy Intermediate tongue Verified 08/25/24 17:31 swelling coffee (Coffea arabica) Allergy Unknown per Verified 08/25/24 17:31 allergy testing Penicillins Allergy Unknown per Verified 08/25/24 17:31 allergy testing Consultations 09/09/24 17:35 ED Decision to Admit Stat 09/09/24 20:18 Consult Neurology Routine 09/11/24 06:47 Consult Behavioral Health Liaison Routine Ordered Studies 09/09/24 14:30 MR brain wo con Stat 09/10/24 09:26 MRI Brain [MR brain wo/w con] Routine 09/11/24 13:12 MRI Cervical [MR cervical spine wo/w con] Routine MRI Thoracic [MR thoracic spine wo/w con] Routine 09/13/24 07:58 CT head venogram w con Routine 09/15/24 07:00 IR lumbar puncture diagnostic Routine 09/15/24 12:05 US venous duplex leg [US venous doppler LE BI] Urgent Hospital Course (1) Abnormal brain MRI: Plan Vision issues Dizziness Abnormal MRI Brain finding Patient presents with multiple issues including intermittent visual blurriness, ear fullness and dizziness Brain MRI shows mild white matter abnormalities involving the centrum semiovale bilaterally; small old infarcts involving the centrum semiovale and right cerebral hemisphere. MRI brain earlier on 08/03no acute finding Follows up with neurology as outpatient; workup being done for idiopathic intracranial hypertension. Neurology evaluated the patient; recommended MRI brain with TINA. MRI with contrast showing T2 hyperintense foci within the periventricular white matter, corpus callosum and right cerebellum, some of which demonstrate peripheral enhancement suggestive of demyelinating plaques with active acute demyelination. TSH within normal limits Vitamin [id number] PG/mL MRI brain with contrast reviewed by neurology; possible likely demyelinating disorder in setting of new lesions. s/p 3 days of iv methylprednisolone; currently on prednisone 60 mg p.o. daily twice a day, 40 mg p.o. daily twice a day and 20 mg p.o. twice a day and stop. MRI of the C-spine and T-spine ordered as per recommendation by neurology; no additional lesions visualized. Patient has mild spinal canal stenosis at T10- T11 and T11 -T12 Underwent lumbar puncture on 09/15/2024 by radiology; multiple sclerosis panel awaited. Result to be followed up by neurology. Continue Vitamin b12 supplement Started on Protonix bid for reflux. can stop few days after last dose of steroid. Venous duplex ordered to evaluate for DVT - neg for dvt. f/u w/ neuro on dc in 1 to 2 weeks. Mood disorder- continue on escitalopram; psychiatry recommended increasing the dose to 10mg. However, patient doesn't want to increase the dose. Full code DVT prophylaxis Lovenox Patient is being discharged with following instructions at the point of discharge: Follow-up with your primary care physician within a week time and likely you will need labs CBC/CMP/magnesium/phosphorus. For demyelinating lesions in your brain, follow-up on the final results of your inpatient lab results with your neurology office in 1 to 2 weeks time upon discharge. If you continue to have intermittent palpitation, coordinate with your PCP office for outpatient Zio patch monitoring. Take your medications as prescribed. Please make sure that you are able to get your medications today by calling your pharmacy before you leave the hospital so that your treatment continuity is not broken. Please note the above document was generated using voice recognition software. It may contain grammatical, syntax or spelling errors. Any formal questions or concerns about the content, text or information contained within the body of this dictation should be directly addressed to the provider for clarification Home Health Attestation I certify that this patient is under my care and that I, or a physicians temporary office assistant working with me, had a face to-face encounter that meets the home health [id number] encounter requirements with this patient. The encounter with the patient was in whole, or in part, for the following medical condition, which is the primary reason for home health care (list medical condition): I certify that, based on my findings, the following services are medically necessary home health services: My clinical findings support the need for the above services because: Further, I certify that my clinical findings support that this patient is homebound (i.e. absences from home require considerable and taxing effort and are for medical reasons or christianity services or infrequently or of short duration when for other reasons) because: Certification for Home Health Services: Based on the above findings, I certify that this patient is confined to the home and needs intermittent senior living care, physical therapy and/or speech therapy or continues to need occupational therapy. The patient is under my care, and I have initiated the establishment of the plan of care. This patient will be followed by a physician who will periodically review the plan of care. Total Time Total Time Spent Total Time Spent (In Minutes): 35 Discharge Plan Discharge Items Patient Disposition: Home - Self-Care Reason For Visit: VISION ISSUES Discharge Diagnosis: Vision issues Dizziness Abnormal MRI Brain finding Activity: Resume your previous activity Non-emergency contact: Primary Care Provider Call non-emergency contact if: you have any medication questions and your symptoms worsen Follow-up/Referrals: Ludy Santiago MD [Primary Care Provider] - (Date & Time 09/21/2024 4:00 PM Provider: Ludy Bob MD [facility] ) Diet: Regular Addtl Attending Provider Instructions: Follow-up with your primary care physician within a week time and likely you will need labs CBC/CMP/magnesium/phosphorus. For demyelinating lesions in your brain, follow-up on the final results of your inpatient lab results with your neurology office in 1 to 2 weeks time upon discharge. If you continue to have intermittent palpitation, coordinate with your PCP office for outpatient Zio patch monitoring. Take your medications as prescribed. Please make sure that you are able to get your medications today by calling your pharmacy before you leave the hospital so that your treatment continuity is not broken. Pending Studies at Discharge: Yes Stand-Alone Forms: My [facility], Smoking Cessation Medications and DC Order Prescriptions: New pantoprazole 40 mg Tablet,Delayed Release (Dr/Ec) 40 mg PO BID 5 Days Qty: 10 0RF prednisone 20 mg Tablet 20 mg PO QAM 1 Days Qty: 1 0RF cyanocobalamin (vitamin B-12) 500 mcg Tablet 1,000 mcg PO QAM 30 Days Qty: 60 0RF Continued escitalopram oxalate 10 mg tablet 5 mg PO PM melatonin 5 mg Tablet 5 mg PO HS desloratadine 5 mg tablet 5 mg PO PM fluticasone propionate 50 mcg/actuation spray,suspension 2 spray INTRANASAL DAILY PRN (Reason: allergies ) magnesium oxide 250 mg magnesium Tablet 250 mg PO HS Discharge Orders: Discharge Order (Routine); Ordered 09/17/24 Ordered By: Dalia Xavier Admission Data Admit Date/Time: 09/09/24 17:51 Attending Provider: Dalia Xavier Admit Provider: Kristopher Phan Primary Care Provider: Ludy Santiago Other Providers: Kristopher Phan; Buddy Braxton; David Fay; Leanna Olsen; Magalie Swanson; Maile Treadwell; Victoriano Nuñez
[2024-09-17 11:40] VITALS: BP 120/89; O2SAT 91
[2024-09-17 12:39] VITALS: PULSE 91
--- NOTE | 2024-09-17 14:41 | Electrocardiogram Report ---
Test Reason : Blood Pressure : */* mmHG Vent. Rate : 79 BPM Atrial Rate : 79 BPM P-R Int : 146 ms QRS Dur : 72 ms QT Int : 374 ms P-R-T Axes : 18 9 41 degrees QTcB Int : 428 ms Normal sinus rhythm Minimal voltage criteria for LVH, may be normal variant Nondiagnostic inferior Q waves Abnormal ECG When compared with ECG of 13-Sep-2024 15:25, QRS axis Shifted left Otherwise no significant change Confirmed by Soto Castaneda ([id number]) on 09/17/2024 2:41:15 PM Referred By: REFERRED SELF Confirmed By: Soto Castaneda
== END 2024-09-17 12:56 | disposition home or self-care (01) | DRG 60 ==
LOC: ED 13:41 → SUATTDRO 17:51 → EDINP 17:51 → 3N 20:18 → 2W 09-16 21:42

== ENCOUNTER 2024-09-21 13:03 | Inpatient (IN) ==
[2024-09-21 15:40] LABS: Basophils # (auto) 0.03 K/uL (0.00-0.20); Basophils % (auto) 0.2 %; Eosinophils # (auto) 0.26 K/uL (0.00-0.50); Eosinophils % (auto) 1.8 %; Hematocrit (blood only) 41.7 % (37.0-47.0); Hemoglobin 13.4 g/dl (12.0-16.0); Immature Granulocytes # (auto) 0.14 K/uL (0.01-0.20); Lymphocytes # (auto) 3.18 K/uL (1.20-3.40); Lymphocytes % (auto) 22.6 %; Mean Corpuscular Hemoglobin 28.6 pg (25.0-34.0); Mean Corpuscular Hgb Conc 32.1 g/dL (32.0-36.0); Mean Corpuscular Volume 89.1 fL (80.0-100.0); Mean Platelet Volume 9.4 fL (9.4-12.4); Monocytes # (auto) 0.61 K/uL (0.11-0.59); Monocytes % (auto) 4.3 %; Neutrophils # (auto) 9.85 K/uL (1.40-6.50); Neutrophils % (auto) 70.1 %; Platelet Count 270 K/uL (130-400); RDW Coefficient of Variation 14.3 % (11.5-14.5); RDW Standard Deviation 45.9 fL (36.4-46.3); Red Blood Count 4.68 M/uL (4.20-5.40); White Blood Count 14.07 K/ul (4.8-10.8)
[2024-09-21 15:49] LABS: Appearance Urine Clear (Clear); Bacteria Urine Automated None Seen (None Seen); Bilirubin Urine Negative (Negative); Blood Urine Trace (Negative); Cast Urine Automated 0-2 /lpf (0-2); Color Urine Yellow; Epithelial Cell Urine Auto 0-2 /hpf (0-2); Glucose Urine UA Negative (Negative); Ketones Urine Negative (Negative); Leukocyte Esterase Urine Negative (Negative); Nitrite Urine Negative (Negative); Protein Urine Negative (Negative); RBC Urine Automated 0-2 /hpf (0-2); Specific Gravity Urine 1.014 (1.000-1.030); Urobilinogen Urine Negative (Negative); WBC Urine Automated 0-5 /hpf (0-5)
[2024-09-21 15:50] LABS: Pregnancy Test, Serum Negative (Negative)
[2024-09-21 15:52] LABS: BUN Creatinine Ratio 19.4 (10-20); Calcium 9.5 mg/dl (8.6-10.3); Creatinine Clr Calc Pharmacy 154.3 ml/min; Magnesium 2.1 mg/dl (1.7-2.4); Potassium 4.2 mmol/L (3.5-5.1)
--- NOTE | 2024-09-21 17:27 | Emergency Department Note ---
History of Present Illness General Chief complaint: Neuro Symptoms/Deficit Stated complaint: NEURO ISSUES, LESIONS ON BRAIN, DISCONNECT Time Seen by Provider: 09/21/24 14:02 History of Present Illness Provider complaint: Neuro symptoms Maximum Pain Intensity: 0 38-year-old female presents the emergency department stating "my brain does not feel like it is working. I do not feel safe at home and I cannot go home. I need to be admitted". Patient reports she has been having different neurosymptoms since June. She reports she feels like her brain is in a fog. She reports no falls or traumas. No seizures. No fevers. No headaches. Patient states she is being worked up for lesions on her brain. She reports she has had multiple MRIs CTs and lumbar puncture recently done. Patient states she cannot go home and needs to be admitted to the hospital. Home Medications Medication Instructions Recorded Confirmed Type escitalopram oxalate 10 mg tablet 5 mg PO HS 08/02/24 09/21/24 History melatonin 5 mg tablet 5 mg PO HS 08/25/24 09/21/24 History fluticasone propionate 50 2 spray intranasal DAILY PRN 09/09/24 09/21/24 History mcg/actuation nasal allergies spray,suspension magnesium oxide 250 mg PO HS 09/09/24 09/21/24 History cyanocobalamin (vitamin B-12) 500 1,000 mcg (2 x 500 mcg) PO QAM 30 09/17/24 09/21/24 Rx mcg tablet days #60 tabs loratadine 10 mg tablet (Claritin) 10 mg PO HS 09/21/24 09/21/24 History Allergies Allergy/AdvReac Type Severity Reaction Status Date / Time amoxicillin Allergy Severe ANAPHYLAXIS Verified 09/21/24 15:13 clavulanic acid Allergy Severe ANAPHYLAXIS Verified 09/21/24 15:13 sulfamethoxazole Allergy Severe tongue Verified 09/21/24 15:13 [From Bactrim] swelling trimethoprim [From Bactrim] Allergy Severe tongue Verified 09/21/24 15:13 swelling doxycycline Allergy Intermediate Rash Verified 09/21/24 15:13 fish derived Allergy Intermediate Hives Verified 09/21/24 15:13 metronidazole Allergy Intermediate rash Verified 09/21/24 15:13 coffee (Coffea arabica) Allergy Unknown per Verified 09/21/24 15:13 allergy testing Penicillins Allergy Unknown per Verified 09/21/24 15:13 allergy testing Past Med/Surg History Problem List (Updated 09/21/24 @ 20:38 by Casey Beaver MD) Neurological symptoms (Acute) Medication adverse effect (Acute) Demyelinating disorder (Acute) Dizziness (Acute) Abnormal brain MRI (Acute) Prolonged QT interval Pain Major depressive disorder, recurrent episode with anxious distress Sinus pressure (Acute) Abdominal pain (Acute) Anxiety (Acute) Dizziness (Acute) Chest pain (Acute) Cervical radiculopathy Dizziness (Acute) Headache (Acute) Vivid dream Somatic symptom disorder Chest pain (Acute) Pseudotumor cerebri (Acute) Dermatomyositis Small fiber neuropathy Headache Hypokalemia Persistent postural-perceptual dizziness Idiopathic intracranial hypertension Sinus tachycardia Palpitations Chest pain (Acute) POTS (postural orthostatic tachycardia syndrome) (Acute) Epigastric abdominal pain (Acute) Weakness (Acute) Change in mental status POTS (postural orthostatic tachycardia syndrome) (Acute) DVT (deep vein thrombosis) in Seizure-like activity Paresthesia Severe uncontrolled hypertension Vision changes High cholesterol GERD (gastroesophageal reflux disease) Anxiety and depression History of bulimia Insomnia Vitamin D deficiency Seasonal allergies Vitamin B12 deficiency Migraine Ankylosing spondylitis Degenerative disc disease Exercise-induced asthma Morbid obesity Thoracic disc disease Dysphagia Prediabetes Eustachian tube dysfunction Near syncope Inappropriate sinus tachycardia Abnormal EEG Hypersomnia Dietary counseling and surveillance Metabolic syndrome Pericarditis Medical History Headache Sinus tachycardia Chest pain Adjustment disorder with anxious mood Chest pain Fatigue COVID-19 Change in vision Dizziness History of pre-eclampsia History of bradycardia DVT (deep venous thrombosis) Morbid obesity with BMI of 40.0-44.9, adult Iron deficiency anemia Heart palpitations Surgical History History of esophagogastroduodenoscopy (EGD) History of wisdom tooth extraction History of cardiac cath 06/2015 @ [facility] [place]--d/t chest pain, normal no stents History of cholecystectomy Family History Father Hypertension Mother Diabetes Grandfather (Maternal) Diabetes Coronary heart disease Myocardial infarction Congestive heart failure Colorectal cancer Grandfather (Paternal) Diabetes Coronary heart disease Myocardial infarction, Onset Age: 50 Grandmother (Paternal) Pulmonary emphysema Sick sinus syndrome Diabetes Pacemaker Grandmother (Maternal) Family history of diabetes mellitus Aunt Pulmonary emphysema Family/Other Myocardial infarction, Onset Age: 37 Coronary heart disease Uncle Stroke Other Asthma Lymphoma No family history of adverse response to anesthesia Denies family history of Ovarian cancer Prostate cancer Breast cancer Social History Smoking Status: Former smoker Tobacco Type: Cigarettes Second Hand Exposure: No; Do You Dip or Chew Tobacco: No; Hx Alcohol Use: No Hx Substance Use: No Preferred Language: Faroese Communication Ability: Effective Communication Tools: Other Visual Impairment: No Limitations Hearing Ability: Normal Research Support Specialist Required: No Beliefs That Will Affect Care: None marital status: Current Living Situation: Family Current Living Situation Comment: home with fiance and daughter current occupational status: unemployed How many Children do You have: 1 Other Information That Helps Us Care for You: No Feels Safe at Home: Yes Safety Concerns: Feels Safe At This Time Childhood Exposure to Second-Hand Smoke: Yes Diet: regular caffeine: No during the past year weight has: remained stable Dental Care, Regularly: Yes Physical Activity Frequency: 5-6 Times per Week Seatbelt Use: never Sunscreen Use: Yes Gender Identity: Female Assistive Devices: Cane and Glasses Assistive Devices Comment: uses cane at home for stairs Physical Exam Vital Signs Vital Signs - 24 hr 09/21/24 13:05 09/21/24 13:42 09/21/24 15:03 Temperature 36.7 C Temperature Source Temporal Artery Scan Pulse Rate 108 H 102 H Pulse Rate [Apical] Respiratory Rate 18 Respiratory Effort / Characteristics Non-Labored Spontaneous Respiratory Depth Normal Respiratory Pattern Regular Blood Pressure 160/106 H Blood Pressure [Right Arm] Blood Pressure Mean 124 Blood Pressure Mean [Right Arm] Pulse Oximetry 91 96 Oxygen Delivery Method Room Air Room Air Sepsis Recent Fever Within 48 Hours No Sepsis New/Unexplained Change in Mental Status N/A Sepsis Action Taken by Nursing No Action Required 09/21/24 15:03 Temperature Temperature Source Pulse Rate Pulse Rate [Apical] 103 H Respiratory Rate 16 Respiratory Effort / Characteristics Non-Labored Spontaneous Respiratory Depth Respiratory Pattern Blood Pressure Blood Pressure [Right Arm] 142/109 H Blood Pressure Mean Blood Pressure Mean [Right Arm] 120 Pulse Oximetry 96 Oxygen Delivery Method Room Air Sepsis Recent Fever Within 48 Hours Sepsis New/Unexplained Change in Mental Status Sepsis Action Taken by Nursing Physical Exam HENT: Exam performed. - Head: Normocephalic and atraumatic. EYES: Conjunctivae and EOM are normal. Right eye exhibits no discharge. Left eye exhibits no discharge. No scleral icterus. NECK: Normal range of motion. Neck supple. No JVD present. CV: Normal rate, regular rhythm, normal heart sounds and intact distal pulses. There is no peripheral edema. Palpable radial pulses bue. PULM/CHEST: Effort normal and breath sounds normal. No respiratory distress. No stridor. no wheezes. no rales. ABD: The abdomen is soft. There is no tenderness. NEURO: Motor and sensation grossly intact. SKIN: Skin is warm and dry. He is not diaphoretic. PSYCH: normal mood and affect. Behavior is normal. Judgment and thought content normal. Course Course 1402: The patient was evaluated in room A11. A complete history and physical exam was performed Administered Medications Enoxaparin Sodium (Enoxaparin Inj 40 Mg/0.4 Ml Syr) 40 mg SQ Q24H ANNA Stop: 10/21/24 17:59 Last Admin: 09/21/24 19:34 Dose: Not Given Documented By: ANS Medical Decision Making Medical Records Attestation: I reviewed the patient's medical records. External medical records reviewed. Patient was admitted from September 09 to September 17, 2024. On September 09 she had a MRI of her brain which showed mild white matter abnormalities involving the centrum semiovale bilaterally which could be due to chronic small vessel ischemic disease or multiple sclerosis. Prior to this in August 03, 2024 the patient had an MRA which showed no dural venous sinus thrombosis. Patient had a repeat MRI done on September 10 which showed white matter corpus callosum right cerebellum peripheral enhancement suggestive of demyelinating plaques. The following day the patient had a MRI of her cervical and thoracic spine. Patient has CT venogram in September 13 which showed patent dural venous sinus cyst. Patient had lumbar puncture performed on September 15, 2024 which showed glucose of 76. Patient also had a lumbar puncture done on August 03 which showed a glucose of 97 and white blood cell count of 11. Laboratory Data Attestation: I reviewed the patient's lab results. 09/21/24 Unknown 09/21/24 Unknown Lab Results 09/21/24 Range/Units Unknown WBC 14.07 H (4.8-10.8) K/ul RBC 4.68 (4.20-5.40) M/uL Hgb 13.4 (12.0-16.0) g/dl Hct 41.7 (37.0-47.0) % MCV 89.1 (80.0-100.0) fL MCH 28.6 (25.0-34.0) pg MCHC 32.1 (32.0-36.0) g/dL RDW Std Deviation 45.9 (36.4-46.3) fL RDW Coeff of Yash 14.3 (11.5-14.5) % Plt Count 270 (130-400) K/uL MPV 9.4 (9.4-12.4) fL Immature Gran % (Auto) 1.0 % Neut % (Auto) 70.1 % Lymph % (Auto) 22.6 % [place] % (Auto) 4.3 % Eos % (Auto) 1.8 % Baso % (Auto) 0.2 % Neut # (Auto) 9.85 H (1.40-6.50) K/uL Lymph # (Auto) 3.18 (1.20-3.40) K/uL [place] # (Auto) 0.61 H (0.11-0.59) K/uL Eos # (Auto) 0.26 (0.00-0.50) K/uL Baso # (Auto) 0.03 (0.00-0.20) K/uL Immature Gran # (Auto) 0.14 (0.01-0.20) K/uL Sodium 135 L (136-145) mmol/L Potassium 4.2 (3.5-5.1) mmol/L Chloride 101 (98-107) mmol/L Carbon Dioxide 28 (21-32) mmol/L Anion Gap 6 (3-11) BUN 12 (6-23) mg/dl Creatinine 0.62 (0.6-1.2) mg/dl Est Cr Clr Drug Dosing 154.3 ml/min eGFR 118.29 BUN/Creatinine Ratio 19.4 (10-20) Glucose 97 (70-99(Fasting)) mg/dl Calcium 9.5 (8.6-10.3) mg/dl Magnesium 2.1 (1.7-2.4) mg/dl HCG, Qual Negative (Negative) Urine Color Yellow Urine Appearance Clear (Clear) Urine pH 7.0 (4.5-7.5) Ur Specific [place] 1.014 (1.000-1.030) Urine Protein Negative (Negative) Urine Glucose (UA) Negative (Negative) Urine Ketones Negative (Negative) Urine Blood Trace H (Negative) Urine Nitrite Negative (Negative) Urine Bilirubin Negative (Negative) Urine Urobilinogen Negative (Negative) Ur Leukocyte Esterase Negative (Negative) Urine WBC (Auto) 0-5 (0-5) /hpf Urine RBC (Auto) 0-2 (0-2) /hpf U Hyaline Cast (Auto) 0-2 (0-2) /lpf U Epithel Cells (Auto) 0-2 (0-2) /hpf Urine Bacteria (Auto) None Seen (None Seen) MDM Narrative Vital signs stable. Labs show mild leukocytosis of 14. Patient was recently on IV and oral steroids most likely accounting for the leukocytosis. Discussed with Dr. Fay on-call neurology who has no further recommendations at this time. I asked him if he wanted any further steroids and he stated no. No need for emergent imaging at this time given the patient's extensive workup in the last 2 months. Patient states she does not feel safe going home and will not go home. Patient be admitted to the [facility] team. Impression & Plan Demyelinating disorder Discharge Plan Visit Data Chief Complaint: Neuro Symptoms/Deficit Stated Complaint: NEURO ISSUES, LESIONS ON BRAIN, DISCONNECT ED Provider: Casey Beaver Discharge Problem: Demyelinating disorder Patient Disposition: Admitted As Inpatient Discharge Instructions Interventions: ED Discharge Assessment Last Done: 09/21/24 17:37
[2024-09-21] MEDS ORDERED: ACETAMINOPHEN 325 MG TAB PO PRN (17:43)
--- NOTE | 2024-09-21 18:39 | History & Physical Report ---
Date of Service September 21, 2024 Assessment & Plan (1) Neurological symptoms: (2) Demyelinating disorder: Plan: Admit to med/surg Patient presenting from home for evaluation of ongoing symptoms of generalized weakness, dizziness, and visual disturbances. Patient recently admitted to [facility] 09/09/2024 - 09/17/2024 for similar symptoms. Patient underwent brain MRI showing possible demyelinating disorder in the setting of new lesions. Neurology was consulted. Patient was treated with IV Solu-Medrol x 3 days and transitioned to a prednisone taper which she has completed. ED discussed case with neurology who is not recommending any additional work up at this time PT/OT, continued observation, hold on neurology consult at this time (3) Anxiety: Plan: Patient has underlying anxiety and is having difficulty coping with her recent diagnosis of MS Currently on escitalopram 5mg daily, was offered to increase to 10mg during previous admission but patient declined. She is agreeable to increased dose at this time as well as a psychiatry consult. Will check EKG prior to increase as she has history of prolonged QTC DVT PROPHYLAXIS SQ Lovenox Patient seen in collaboration with Dr. Jimenez. I spent a total of 60 minutes coordinating, documenting, and providing care for this patient excluding time spent in the performance of separately billed services. This included personally reviewing all current laboratories and imaging studies, medication reconciliation, outpatient chart review, and discussion with specialists. Admission and Anticipated Discharge Date Admission Date: September 21, 2024 History of Present Illness Chief Complaint: Weakness, Dizziness, Vision Disturbance Primary Care Provider: Ludy Santiago MD 38 year old female with PMH psoriasis, HLA-B27 positive, PCOS, mild intermittent asthma, essential hypertension, GERD, vitamin D deficiency, fibromyalgia, apical migraine, atypical chest pain, prolonged QT interval, eustachian tube dysfunction and other problems listed below who presents for evaluation of weakness, dizziness, vision disturbance. Patient recently admitted to [facility] 09/09/2024 - 09/17/2024 for similar symptoms. Patient underwent brain MRI showing possible demyelinating disorder in the setting of new lesions. Neurology was consulted. Patient was treated with IV Solu-Medrol x 3 days and transitioned to a prednisone taper which she has completed. Patient reports that since returning home she has had continued symptoms of generalized weakness, lightheadedness, and visual disturbances. Patient was seen in the ED yesterday for the same. Discharged home with recommended outpatient follow-up. Today, patient's labs show a mild leukocytosis which is likely secondary to recent steroid use. ED discussed case with neurology who is not recommending additional imaging at this time. Patient states she feels unsafe going home. Allergies Allergy/AdvReac Type Severity Reaction Status Date / Time amoxicillin Allergy Severe ANAPHYLAXIS Verified 09/21/24 15:13 clavulanic acid Allergy Severe ANAPHYLAXIS Verified 09/21/24 15:13 sulfamethoxazole Allergy Severe tongue Verified 09/21/24 15:13 [From Bactrim] swelling trimethoprim [From Bactrim] Allergy Severe tongue Verified 09/21/24 15:13 swelling doxycycline Allergy Intermediate Rash Verified 09/21/24 15:13 fish derived Allergy Intermediate Hives Verified 09/21/24 15:13 metronidazole Allergy Intermediate rash Verified 09/21/24 15:13 coffee (Coffea arabica) Allergy Unknown per Verified 09/21/24 15:13 allergy testing Penicillins Allergy Unknown per Verified 09/21/24 15:13 allergy testing Home Medications Medication Instructions Recorded Confirmed Type escitalopram oxalate 10 mg tablet 5 mg PO HS 08/02/24 09/21/24 History melatonin 5 mg tablet 5 mg PO HS 08/25/24 09/21/24 History fluticasone propionate 50 2 spray intranasal DAILY PRN 09/09/24 09/21/24 History mcg/actuation nasal allergies spray,suspension magnesium oxide 250 mg PO HS 09/09/24 09/21/24 History cyanocobalamin (vitamin B-12) 500 1,000 mcg (2 x 500 mcg) PO QAM 30 09/17/24 09/21/24 Rx mcg tablet days #60 tabs loratadine 10 mg tablet (Claritin) 10 mg PO HS 09/21/24 09/21/24 History Past Med/Surg History Problem List (Updated 09/22/24 @ 00:03 by Background Daemon) Neurological symptoms (Acute) Medication adverse effect (Acute) Demyelinating disorder (Acute) Dizziness (Acute) Abnormal brain MRI (Acute) Prolonged QT interval Pain Major depressive disorder, recurrent episode with anxious distress Sinus pressure (Acute) Abdominal pain (Acute) Anxiety (Acute) Dizziness (Acute) Chest pain (Acute) Cervical radiculopathy Dizziness (Acute) Headache (Acute) Vivid dream Somatic symptom disorder Chest pain (Acute) Pseudotumor cerebri (Acute) Dermatomyositis Small fiber neuropathy Headache Hypokalemia Persistent postural-perceptual dizziness Idiopathic intracranial hypertension Sinus tachycardia Palpitations Chest pain (Acute) POTS (postural orthostatic tachycardia syndrome) (Acute) Epigastric abdominal pain (Acute) Weakness (Acute) Change in mental status POTS (postural orthostatic tachycardia syndrome) (Acute) DVT (deep vein thrombosis) in Seizure-like activity Paresthesia Severe uncontrolled hypertension Vision changes High cholesterol GERD (gastroesophageal reflux disease) Anxiety and depression History of bulimia Insomnia Vitamin D deficiency Seasonal allergies Vitamin B12 deficiency Migraine Ankylosing spondylitis Degenerative disc disease Exercise-induced asthma Morbid obesity Thoracic disc disease Dysphagia Prediabetes Eustachian tube dysfunction Near syncope Inappropriate sinus tachycardia Abnormal EEG Hypersomnia Dietary counseling and surveillance Metabolic syndrome Pericarditis Medical History Headache Sinus tachycardia Chest pain Adjustment disorder with anxious mood Chest pain Fatigue COVID-19 Change in vision Dizziness History of pre-eclampsia History of bradycardia DVT (deep venous thrombosis) Morbid obesity with BMI of 40.0-44.9, adult Iron deficiency anemia Heart palpitations Surgical History History of esophagogastroduodenoscopy (EGD) History of wisdom tooth extraction History of cardiac cath 06/2015 @ [facility] [place]--d/t chest pain, normal no stents History of cholecystectomy Family History Father Hypertension Mother Diabetes Grandfather (Maternal) Diabetes Coronary heart disease Myocardial infarction Congestive heart failure Colorectal cancer Grandfather (Paternal) Diabetes Coronary heart disease Myocardial infarction, Onset Age: 50 Grandmother (Paternal) Pulmonary emphysema Sick sinus syndrome Diabetes Pacemaker Grandmother (Maternal) Family history of diabetes mellitus Aunt Pulmonary emphysema Family/Other Myocardial infarction, Onset Age: 37 Coronary heart disease Uncle Stroke Other Asthma Lymphoma No family history of adverse response to anesthesia Denies family history of Ovarian cancer Prostate cancer Breast cancer Social History Smoking Status: Former smoker Tobacco Type: Cigarettes Second Hand Exposure: No; Do You Dip or Chew Tobacco: No; Hx Alcohol Use: No Hx Substance Use: No Preferred Language: Polish Communication Ability: Effective Communication Tools: Other Visual Impairment: No Limitations Hearing Ability: Normal Aurist Required: No Beliefs That Will Affect Care: None marital status: Current Living Situation: Family Current Living Situation Comment: home with fiance and daughter current occupational status: unemployed How many Children do You have: 1 Other Information That Helps Us Care for You: No Feels Safe at Home: Yes Safety Concerns: Feels Safe At This Time Childhood Exposure to Second-Hand Smoke: Yes Diet: regular caffeine: No during the past year weight has: remained stable Dental Care, Regularly: Yes Physical Activity Frequency: 5-6 Times per Week Seatbelt Use: never Sunscreen Use: Yes Gender Identity: Female Assistive Devices: Cane and Glasses Assistive Devices Comment: uses cane at home for stairs Review of Systems Review of Systems: ROS per HPI, all other systems reviewed and negative Physical Exam Constitutional: WD/WN, vitals as above + obese; no acute distress Eyes: PERRL, conjunctivae normal, anicteric sclerae ENMT: external ear and nose normal, oropharynx normal Respiratory: normal respiratory effort, lungs clear to auscultation Cardiovascular: Rate/Rhythm: regular rate and regular rhythm Vessels: normal peripheral pulses Extremities: no edema Gastrointestinal (Abdomen): normal bowel sounds, soft, nontender, no hepatosplenomegaly Musculoskeletal: no cyanosis or clubbing, extremities motor strength 5/5 Skin: no rashes, warm and dry Neurologic: PERRL, EOMI, accommodation nl, no face palsy, no dysarthria Psychiatric: Orientation: alert and oriented x 3 Affect: + anxious affect and + tearful affect Results & Data Results & Data Vital Signs (Past 12 Hours) Vital Signs Temp Pulse Pulse Pulse Resp BP BP 09/21/24 17:46 36.8 C 95 H 16 151/97 H 09/21/24 17:00 105 H 16 130/105 H 09/21/24 15:03 103 H 16 142/109 H 09/21/24 15:03 09/21/24 13:42 102 H 09/21/24 13:05 36.7 C 108 H 18 160/106 H Pulse Ox O2 Del Method 09/21/24 17:46 96 Room Air 09/21/24 17:00 96 Room Air 09/21/24 15:03 96 Room Air 09/21/24 15:03 96 Room Air 09/21/24 13:42 09/21/24 13:05 91 Room Air Laboratory Results Short CBC 09/21/24 Range/Units Unknown WBC 14.07 H (4.8-10.8) K/ul Hgb 13.4 (12.0-16.0) g/dl Hct 41.7 (37.0-47.0) % Plt Count 270 (130-400) K/uL BMP 09/21/24 Unknown Sodium 135 L Potassium 4.2 Chloride 101 Carbon Dioxide 28 BUN 12 Creatinine 0.62 Glucose 97 Calcium 9.5 Urine 09/21/24 Range/Units Unknown Urine Color Yellow Urine Appearance Clear (Clear) Urine pH 7.0 (4.5-7.5) Ur Specific [place] 1.014 (1.000-1.030) Urine Protein Negative (Negative) Urine Glucose (UA) Negative (Negative) Code Status & VTE Plan VTE Prophylaxis Plan VTE Prophylaxis will be ordered: Yes Supervising Physician Co-Signing Physician Notes Pt was seen and examined by myself, Radha Jimenez MD on the day of service. Care was coordinated with JOLLY Dale. 39yoF admitted with concern for worsening MS diagnosed recently during her last admission. Notes progressive brain fog, dizziness and weakness. Also noting some anxiety with her new diagnosis. Agreeable to psych consult. Consider neurology consult once more. Otherwise as above. I spent a total of 15minutes coordinating, documenting, and providing care for this patient excluding time spent in the performance of separately billed services
[2024-09-21] MEDS: ENOXAPARIN INJ 40 MG/0.4 ML SYR SQ SCH (19:34)
[2024-09-21] MEDS: MELATONIN 3 MG TAB PO SCH (21:14)
[2024-09-21] MEDS: LORATADINE 10 MG TAB PO SCH (21:15)
[2024-09-21] MEDS: ESCITALOPRAM OXALATE 10 MG TAB PO SCH (21:15)
[2024-09-21] MEDS: MAGNESIUM OXIDE 400 MG TAB PO SCH (21:15)
[2024-09-22 07:29] LABS: Hemoglobin 12.3 g/dl (12.0-16.0); Mean Corpuscular Hemoglobin 29.1 pg (25.0-34.0); Mean Corpuscular Hgb Conc 32.4 g/dL (32.0-36.0); Mean Corpuscular Volume 89.8 fL (80.0-100.0); Mean Platelet Volume 9.6 fL (9.4-12.4); Platelet Count 222 K/uL (130-400); RDW Coefficient of Variation 14.5 % (11.5-14.5); Red Blood Count 4.23 M/uL (4.20-5.40); White Blood Count 12.92 K/ul (4.8-10.8)
[2024-09-22 07:39] LABS: BUN Creatinine Ratio 22.7 (10-20); Calcium 9.1 mg/dl (8.6-10.3); Creatinine Clr Calc Pharmacy 143.4 ml/min; Potassium 4.3 mmol/L (3.5-5.1)
[2024-09-22] MEDS: CYANOCOBALAMIN (B-12) 500 MCG TABLET PO SCH (08:18)
--- NOTE | 2024-09-22 13:16 | Communication Note ---
Date of Service: September 22, 2024 Patient known to me from past inpatient psychiatry hospitalization and consults service. H/o recurrent MDD and illness anxiety disorder. Continues to have a nxious ruminations about health status. H/o abnormal EKG findings with intermittent prolonged QT, however this finding was not consistent with daily EKGs. Would benefit from optimization of her serotonin antidepressant Escitalopram, can increase to 10mg. Consider starting Abilify 2mg HS for SSRI augmentation to target depression and anxious ruminations. Pt would benefit from regular reassurance.
--- NOTE | 2024-09-22 13:57 | Hospitalist Progress Note ---
Date of Service September 22, 2024 Assessment & Plan (1) Neurological symptoms: (2) Demyelinating disorder: Plan: Admit to med/surg Patient presenting from home for evaluation of ongoing symptoms of generalized weakness, dizziness, and visual disturbances. Patient recently admitted to [facility] 09/09/2024 - 09/17/2024 for similar symptoms. Patient underwent brain MRI showing possible demyelinating disorder in the setting of new lesions. Neurology was consulted. Patient was treated with IV Solu-Medrol x 3 days and transitioned to a prednisone taper which she has completed. ED discussed case with neurology who is not recommending any additional work up at this time PT/OT, continued observation Pt denies new complaints, demanding neuro eval and MRI brain Neuro consult placed, will hold on MRI until further neuro eval. (3) Anxiety: Plan: Patient has underlying anxiety and is having difficulty coping with her recent diagnosis of MS Currently on escitalopram 5mg daily, was offered to increase to 10mg during previous admission but patient declined. She is agreeable to increased dose at this time as well as a psychiatry consult. c/w lexapro 10 mg HS, monitor ekg for qtc DVT PROPHYLAXIS SQ Lovenox Admission and Anticipated Discharge Date Admission Date: September 21, 2024 Subjective Patient was seen and examined at bedside. Patient was lying in bed, using her mobile device, appeared comfortable. Patient sat up quickly upon my entering the room for bedside exam. Did not appear to be dizzy, no focal neurological signs and symptoms. Patient did not complain any specific issues, continues to state that she has this weakness and dizziness and ongoing vision problem. Patient demanding that she see neurology and would like MRI done. Will hold on MRI until further neurology evaluation. Communicated with neurology of patient's request. Physical Exam Constitutional: WD/WN, vitals as above + obese; no acute distress Eyes: PERRL, conjunctivae normal, anicteric sclerae ENMT: external ear and nose normal, oropharynx normal Respiratory: normal respiratory effort, lungs clear to auscultation Cardiovascular: Rate/Rhythm: regular rate and regular rhythm Vessels: normal peripheral pulses Extremities: no edema Gastrointestinal (Abdomen): normal bowel sounds, soft, nontender, no hepatosplenomegaly Musculoskeletal: no cyanosis or clubbing, extremities motor strength 5/5 Skin: no rashes, warm and dry Neurologic: PERRL, EOMI, accommodation nl, no face palsy, no dysarthria Psychiatric: Orientation: alert and oriented x 3 Affect: + anxious affect Results & Data Results & Data Vital Signs (Past 12 Hours) Vital Signs Temp Pulse Resp BP Pulse Ox O2 Del Method 09/22/24 07:38 36.5 C 81 14 94/64 L 94 Room Air
--- NOTE | 2024-09-22 21:38 | Electrocardiogram Report ---
Test Reason : Blood Pressure : */* mmHG Vent. Rate : 99 BPM Atrial Rate : 99 BPM P-R Int : 160 ms QRS Dur : 74 ms QT Int : 344 ms P-R-T Axes : 12 8 56 degrees QTcB Int : 441 ms Normal sinus rhythm with sinus arrhythmia Minimal voltage criteria for LVH, may be normal variant Inferior infarct , age undetermined Cannot rule out Anterior infarct , age undetermined Abnormal ECG When compared with ECG of 19-Sep-2024 20:40, No significant change was found Confirmed by Darryl Fernandez ([id number]) on 09/22/2024 9:37:48 PM Referred By: REFERRED SELF Confirmed By: Darryl Fernandez
[2024-09-23 02:21] VITALS: RESP 16
[2024-09-23 07:34] VITALS: BP 129/69; PULSE 77; TEMP 97.7; O2SAT 95
[2024-09-23 07:55] LABS: Hematocrit (blood only) 37.7 % (37.0-47.0); Hemoglobin 12.2 g/dl (12.0-16.0); Mean Corpuscular Hemoglobin 29.3 pg (25.0-34.0); Mean Corpuscular Hgb Conc 32.4 g/dL (32.0-36.0); Mean Corpuscular Volume 90.4 fL (80.0-100.0); Mean Platelet Volume 9.7 fL (9.4-12.4); Platelet Count 205 K/uL (130-400); RDW Coefficient of Variation 14.3 % (11.5-14.5); RDW Standard Deviation 47.1 fL (36.4-46.3); Red Blood Count 4.17 M/uL (4.20-5.40); White Blood Count 9.91 K/ul (4.8-10.8)
[2024-09-23 08:31] LABS: BUN Creatinine Ratio 32.7 (10-20); Calcium 8.9 mg/dl (8.6-10.3); Creatinine Clr Calc Pharmacy 193.1 ml/min; Magnesium 2.2 mg/dl (1.7-2.4); Phosphorus 3.6 mg/dl (2.5-4.9); Potassium 4.3 mmol/L (3.5-5.1)
--- NOTE | 2024-09-23 09:45 | Neurology Consultation ---
Date of Consultation September 23, 2024 Assessment & Plan (1) Demyelinating disorder: (2) Vision changes: (3) Seizure-like activity: Plan This patient had testing last week consistent with an inflammatory demyelinating disease such as multiple sclerosis. She had enhancing lesions seen on MRI of the brain (with 2 of these lesions typical for MSDawson's fingers), possible cord lesions that were on enhancing, and a lumbar puncture positive for inflammation typical of MS (increased IgG synthesis rate and oligoclonal bands). Mimics have been excluded including Lyme disease. She does have a RYAN profile pending. The patient has nonspecific vision changes and I am not convinced she has an actual optic neuritis (which tends to give visual loss). The color changes, however, or consistent with optic neuritis. Neuromyelitis optica (or variant) was considered but that condition typically has optic neuritis, spinal cord or certain brainstem lesions. Her MRI is more consistent with MS. Ophthalmology on July 31 did not diagnosed optic neuritis however her symptoms did not present until August. She had IV Solu-Medrol treatment for her LINOTYPE OPERATOR inflammatory disease. The patient has seizure-like episodes of a nonspecific nature. EEGs have been normal in the past. I have a low suspicion for an actual seizure disorder. Recommendations: 1. I will not give this patient any more steroids this hospitalization as she just got large doses last week. 2. There is no indication for repeat MRI of the brain as she just had this last week. Even if her lesions were different it would not change what I do at this time. 3. The patient has an appointment with Dr. Braxton as an outpatient at 1:30 PM today to talk about further testing and treatment regarding her probable multiple sclerosis. 4. Awaiting final autoimmune studies: RYAN 12 and AQP4 which were drawn last wee k. 5. Follow-up with ophthalmology regarding possible optic neuritis Overall, I spent a total of 150 minutes with this case including review of records, review of MRI films, direct evaluation of the patient, report generation, and discussion of the case with the patient, Dr. Braxton, and Dr. Palafox, including differential diagnosis and treatment options History of Present Illness Reason for Consultation: Patient is a 39-year-old, who was asked to see the request of Dr. Xavier, for neurologic evaluation regarding probable multiple sclerosis. Requesting Physician: Dr. Xavier Attending Physician: Ciera Palafox MD History of Present Illness Has been known to [facility] neurology since April [address] Renner for lightheadedness/dizziness and intractable tension headaches. She had a number of tests both at [facility] and at other institutions as follows (which were all unremarkable): MRI of brain with without contrast 2015, November 2017, March 2020 MRA of head December 2020, May 2020 MRV of head May 2019, May 2020, MRV of head with contrast report not available 2020 CT of head-January 2021, December 2020, November 2020, April 2020, October 2017 CT cervical spine December 2020 CT sinuses April 2020 CT echocardiogram November 2020 MRI cervical spine July 2019, January 2018, January 2016 MRI thoracic spine November 2017 Lumbar puncture June 2020 opening pressure 19, [facility] Venous Doppler 2017, 2018, 2019 EEG continuous video monitoring x4 days [facility] June 2020 I saw her in June 2021 and she had another normal MRI of the brain. By September 2021 she had been diagnosed with idiopathic intracranial hypertension as noted by symptoms and a lumbar puncture which had a borderline increased opening pressure of 23. MRI of the brain and MRV were unremarkable. There was no inflammation or infection in the LP. She was given Diamox and felt that it did not help and gave her side effects so it was discontinued. By September 2021 she had the following diagnoses: Persistent postural/perceptual dizziness, POTS, nonspecific weakness, headaches (mixed variety) ankylosing spondylitis, and possible small fiber neuropathy. She was essentially lost to follow-up at [facility] and her symptoms were largely improved. She had no cognitive issues or vision problems. Starting in late June she had the onset of new vision issues consisting of blurriness or "hyper sharp" vision. She could occasionally have color washout and very occasionally some double vision. In addition, she has had persistent numbness in her hands for years (EMGs have shown no evidence of distal mononeuropathy or cervical radiculopathy), nonspecific generalized weakness and poor balance. She had some other numbness areas in her scalp or chest randomly. She saw an power lineman technician on July 31, 2024 who found no papilledema or other optic abnormalities. She was admitted to the hospital in July and saw Dr. Braxton. MRI of the brain, MRV of the head, and MRA of the head were all normal (although there were a few, punctate, nonspecific spots seen in the head). Lumbar puncture at that time showed an opening pressure of 23 with 11 white cells and a protein of 26. She was put on Diamox twice a day for presumed idiopathic intracranial hypertension. This gave her side effects, did not help, and she stopped this medication. Patient was having some nonspecific staring episodes. She states that she will get episodes of "dj vu" accompanied by a "spacey and foggy feeling" lasting 20 to 30 seconds and then recovering without any sequelae. These are intermittent but currently, she says she gets them every day. An EEG showed some left frontotemporal slowing of a nonspecific nature August 26, 2024. The patient was back in the hospital in late August 2024 for worsening visual and other symptoms. B12 was 252, Lyme antibody titers negative, TSH was 2.0. Neurologic examination was nonfocal/unremarkable. MRI of the brain without contrast showed a few white matter spots that were not present on previous film. MRI of the brain with contrast showed enhancing lesions particularly in the right cerebellum and periventricular corpus callosum area. 1 or 2 of these lesions now present were perpendicular to the ventricular system ("Pendleton's fingers"). I reviewed these films. MRI of the cervical spine with and without contrast showed no obvious/concrete cervical spine lesion. There are a couple of shadows that were suspicious but they did not enhance. There was some degenerative changes particularly at C5-6. I reviewed these films MRI of the thoracic spine with and without contrast showed no spinal cord lesions or enhancement. I reviewed these films. A lumbar puncture was performed September 15 with an opening pressure of 23 (again these measurements were made with the patient in prone position which could make a pressure reading falsely elevated. There was 1 white cell and a protein of 24. CSF Lyme was negative. Special protein studies showed an elevated IgG index of 1.74 (normal less than 0.7), elevated IgG synthesis rate of 11.3 (normal -9 0.9-3.3), and greater than 5 well-defined oligoclonal bands present. The patient was given 3 days of IV Solu-Medrol, 1 g/day followed by a tapering steroid course. Her visual symptoms improved very nicely for 2 days but the other symptoms did not change much. She was discharged on September 17. The patient came to the emergency room September 20 and then again on September 21 for worsening symptoms. She felt that she could not go home because her symptoms were persistent. It was mostly "brain fog" and "vision issues". In questioning her they were about what was described above. No one found any new deficits or changes on neurologic examination. CHEM profile, CBC, liver profile, TSH, urinalysis and serum test were all unremarkable/normal. Chest x-ray was unremarkable. Currently, she continues to have numbness in her hands (chronic) with dyses thesias in the chest and scalp as before. Her visual symptoms are about the same as they were last week. Nursing reports no new issues. Laboratory studies done today reveal a normal CBC and CHEM profile. Allergies Allergy/AdvReac Type Severity Reaction Status Date / Time amoxicillin Allergy Severe ANAPHYLAXIS Verified 09/21/24 15:13 clavulanic acid Allergy Severe ANAPHYLAXIS Verified 09/21/24 15:13 sulfamethoxazole Allergy Severe tongue Verified 09/21/24 15:13 [From Bactrim] swelling trimethoprim [From Bactrim] Allergy Severe tongue Verified 09/21/24 15:13 swelling doxycycline Allergy Intermediate Rash Verified 09/21/24 15:13 fish derived Allergy Intermediate Hives Verified 09/21/24 15:13 metronidazole Allergy Intermediate rash Verified 09/21/24 15:13 coffee (Coffea arabica) Allergy Unknown per Verified 09/21/24 15:13 allergy testing Penicillins Allergy Unknown per Verified 09/21/24 15:13 allergy testing Home Medications Medication Instructions Recorded Confirmed Type melatonin 5 mg tablet 5 mg PO HS 08/25/24 09/21/24 History fluticasone propionate 50 2 spray intranasal DAILY PRN 09/09/24 09/21/24 History mcg/actuation nasal allergies spray,suspension magnesium oxide 250 mg PO HS 09/09/24 09/21/24 History cyanocobalamin (vitamin B-12) 500 1,000 mcg (2 x 500 mcg) PO QAM 30 09/17/24 09/21/24 Rx mcg tablet days #60 tabs loratadine 10 mg tablet (Claritin) 10 mg PO HS 09/21/24 09/21/24 History escitalopram oxalate 10 mg tablet 10 mg PO HS #30 tabs 09/23/24 Rx Patient History Medical History Headache Sinus tachycardia Chest pain Adjustment disorder with anxious mood Chest pain Fatigue COVID-19 Change in vision Dizziness History of pre-eclampsia History of bradycardia DVT (deep venous thrombosis) Morbid obesity with BMI of 40.0-44.9, adult Iron deficiency anemia Heart palpitations Surgical History History of esophagogastroduodenoscopy (EGD) History of wisdom tooth extraction History of cardiac cath 06/2015 @ [facility] [place]--d/t chest pain, normal no stents History of cholecystectomy Family History Father Hypertension Mother Diabetes Grandfather (Maternal) Diabetes Coronary heart disease Myocardial infarction Congestive heart failure Colorectal cancer Grandfather (Paternal) Diabetes Coronary heart disease Myocardial infarction, Onset Age: 50 Grandmother (Paternal) Pulmonary emphysema Sick sinus syndrome Diabetes Pacemaker Grandmother (Maternal) Family history of diabetes mellitus Aunt Pulmonary emphysema Family/Other Myocardial infarction, Onset Age: 37 Coronary heart disease Uncle Stroke Other Asthma Lymphoma No family history of adverse response to anesthesia Denies family history of Ovarian cancer Prostate cancer Breast cancer Social History (Updated 09/23/24 @ 10:32 by David Fay MD) Smoking Status: Former smoker Tobacco Type: Cigarettes Age Started Using Tobacco: 26; Age Quit Using Tobacco: 28; Second Hand Exposure: No; Do You Dip or Chew Tobacco: No; Hx Alcohol Use: No Hx Substance Use: No Preferred Language: Upper Sorbian Communication Ability: Effective Communication Tools: Other Visual Impairment: No Limitations Hearing Ability: Normal Sales Coach Required: No Beliefs That Will Affect Care: None marital status: Current Living Situation: Family Current Living Situation Comment: home with fiance and daughter current occupational status: employed 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 How many Children do You have: 1 Feels Safe at Home: Yes Childhood Exposure to Second-Hand Smoke: Yes Diet: regular caffeine: No during the past year weight has: remained stable Dental Care, Regularly: Yes Physical Activity Frequency: 5-6 Times per Week Seatbelt Use: never Sunscreen Use: Yes Gender Identity: Female Assistive Devices: Cane and Walker Review of Systems Constitutional: no fever, no fatigue and no weakness Eyes: + worsening vision; no diplopia and no e ye pain Ear, Nose, Mouth, Throat: no ear pain, no tinnitus, no hearing loss, no dizziness, no snoring, no hoarseness and no dysphagia Respiratory: no cough and no dyspnea Cardiovascular: no chest pain, no palpitations and no lightheadedness Gastrointestinal: no abdominal pain, no nausea and no vomiting Genitourinary: no dysuria, no urinary frequency and no urinary incontinence Musculoskeletal: no back pain, no neck pain, no radicular pain, no joint pain and no myalgia Integumentary: no rash and no lesions Neurologic: + numbness; no gait abnormality, no loca lized weakness, no generalized weakness, no tingling, no tremor(s), no abnormal movements, no headache(s), no abnormal speech, no confusion and no memory loss Psychiatric: no depression, no irritability, no anxiety, no difficulty concentrating, no confusion and no hallucinations Endocrine: no fatigue and no flushing Hematologic / Lymphatic: no easy bleeding and no easy bruising Allergy / Immunological: no urticaria and no problem reported Exam (Neuro) Physical Exam: The patient is right-handed. The patient is awake, alert, and attentive. Speech is normal without any aphasia or dysarthria. Mentation and thought processes are intact, with full orientation and normal fund of knowledge. Mood and affect are normal and appropriate. Appearance and grooming are normal. Short and long-term memory are intact. Pupils are 3 mm bilaterally and reactive to light. Extraocular eye muscles are intact without nystagmus. Visual acuity and visual kowalski seem normal grossly to confrontation. There are no deficits to sensation in the face in all 3 distributions of the fifth cranial nerve bilaterally. Corneal reflexes are positive bilaterally. Facial strength and symmetry was normal bilaterally. Hearing seems intact grossly to voice and finger rub bilaterally. Palate moves well without asymmetry. There is normal sternocleidomastoid and trapezius strength bilaterally. Tongue is midline with good strength bilaterally. Neck has a full range of motion without discomfort. Cervical, thoracic, and lumbar spine are nontender to palpation. Gait was not tested but stance sitting up in bed is quite normal. With outstretched arms there is no drift. There are no resting, postural, or action tremors. There is no ataxia with finger to nose testing. There is good facility in the hands. No other abnormal involuntary movements are noted. Motor strength is 5/5 diffusely in the arms bilaterally including deltoids, biceps, triceps, brachioradialis, wrist flexors and extensors, labor custodian, and intrinsic hand muscles. Motor strength is 5/5 diffusely in the legs bilaterally including hip flexors, quadriceps, hamstrings, gastrocnemius, tibialis anterior, tibialis posterior, and Peroneii muscles bilaterally. Toe extensors are normal and there is good bulk in the extensor digitorum brevis muscles bilaterally. The limbs have good tone without rigidity or spasticity. There is no atrophy noted in the muscles. Muscle bulk is normal, there is no tenderness to palpation, no myotonia to percussion, and no fasciculations seen. Sensory examination is intact to touch and pin throughout all 4 limbs diffusely. Reflexes are 1/4 in the biceps, triceps, brachioradialis, quadriceps, and Achilles tendons bilaterally. Toes are downgoing with plantar stimulation bilaterally. Peripheral pulses are present and of normal quality distally in all 4 limbs. There is no peripheral edema noted in the limbs. Results & Data Vital Signs (Past 12 Hours) Vital Signs Temp Pulse Resp BP Pulse Ox O2 Del Method 09/23/24 07:33 36.5 C 77 16 129/69 95 Room Air PG Care Time/CCT Total # of Minutes Spent Total Time Spent with Patient: Total time spent is greater than 50% in coordination of care (as documented) at patient's floor/unit and/or counseling patient: Coding Level of Care Code 20593 INT INP/OBS CARE 3/75MIN Diagnoses Demyelinating disorder G37.9 Vision changes H53.9 Seizure-like activity R56.9 Time Spent (min) 150
--- NOTE | 2024-09-23 10:40 | Discharge Summary ---
Date of Service September 23, 2024 Admission HPI Per Admitting Provider 38 year old female with PMH psoriasis, HLA-B27 positive, PCOS, mild intermittent asthma, essential hypertension, GERD, vitamin D deficiency, fibromyalgia, apical migraine, atypical chest pain, prolonged QT interval, eustachian tube dysfunction and other problems listed below who presents for evaluation of weakness, dizziness, vision disturbance. Patient recently admitted to [facility] 09/09/2024 - 09/17/2024 for similar symptoms. Patient underwent brain MRI showing possible demyelinating disorder in the setting of new lesions. Neurology was consulted. Patient was treated with IV Solu-Medrol x 3 days and transitioned to a prednisone taper which she has completed. Patient reports that since returning home she has had continued symptoms of generalized weakness, lightheadedness, and visual disturbances. Patient was seen in the ED yesterday for the same. Discharged home with recommended outpatient follow-up. Today, patient's labs show a mild leukocytosis which is likely secondary to recent steroid use. ED di scussed case with neurology who is not recommending additional imaging at this time. Patient states she feels unsafe going home. Admission Exam Per Admitting Provider Constitutional: WD/WN, vitals as above + obese; no acute distress Eyes: PERRL, conjunctivae normal, anicteric sclerae ENMT: external ear and nose normal, oropharynx normal Respiratory: normal respiratory effort, lungs clear to auscultation Cardiovascular: Rate/Rhythm: regular rate and regular rhythm Vessels: normal peripheral pulses Extremities: no edema Gastrointestinal (Abdomen): normal bowel sounds, soft, nontender, no hepatosplenomegaly Musculoskeletal: no cyanosis or clubbing, extremities motor strength 5/5 Skin: no rashes, warm and dry Neurologic: PERRL, EOMI, accommodation nl, no face palsy, no dysarthria Psychiatric: Orientation: alert and oriented x 3 Affect: + anxious affect and + tearful affect Principal Diagnosis Multiple sclerosis Discharge Exam Constitutional + well hydrated; no acute distress Eyes PERRL, conjunctivae normal, anicteric sclerae ENMT external ear and nose normal, oropharynx normal Respiratory normal respiratory effort, lungs clear to auscultation Cardiovascular Rate/Rhythm: regular rate and regular rhythm Gastrointestinal (Abdomen) normal bowel sounds, soft, nontender, no hepatosplenomegaly Neurologic PERRL, EOMI, accommodation nl, no face palsy, no dysarthria Psychiatric A+Ox3, euthymic affect Discharge Data Allergies Allergy/AdvReac Type Severity Reaction Status Date / Time amoxicillin Allergy Severe ANAPHYLAXIS Verified 09/23/24 13:11 clavulanic acid Allergy Severe ANAPHYLAXIS Verified 09/23/24 13:11 sulfamethoxazole Allergy Severe tongue Verified 09/23/24 13:11 [From Bactrim] swelling trimethoprim [From Bactrim] Allergy Severe tongue Verified 09/23/24 13:11 swelling doxycycline Allergy Intermediate Rash Verified 09/23/24 13:11 fish derived Allergy Intermediate Hives Verified 09/23/24 13:11 metronidazole Allergy Intermediate rash Verified 09/23/24 13:11 coffee (Coffea arabica) Allergy Unknown per Verified 09/23/24 13:11 allergy testing Penicillins Allergy Unknown per Verified 09/23/24 13:11 allergy testing Consultations 09/21/24 16:15 ED Decision to Admit Stat 09/22/24 10:45 Consult Behavioral Health Liaison Routine 09/22/24 12:21 Consult Neurology Routine Hospital Course (1) Multiple sclerosis: Patient presented from home for evaluation of ongoing symptoms of generalized weakness, dizziness, and visual disturbances. Patient recently admitted to [facility] 09/09/2024 - 09/17/2024 for similar symptoms. Patient underwent brain MRI at the time showed possible demyelinating disorder in the setting of new lesions. Neurology was consulted. Patient was treated with IV Solu-Medrol x 3 days and transitioned to a prednisone taper which she has completed. Discussed with Neurologist Dr Fay He recommends no further evaluation at this time, to discharge patient to follow up with Neurologist Dr Braxton in office today to start further evaluation and treatment of MS Patient educated about this prior to dc (2) Anxiety: Patient has underlying anxiety and is having difficulty coping with her recent diagnosis of MS Currently on escitalopram 5mg daily, was offered to increase to 10mg during previous admission but patient declined. Psych recommends increasing to 10mg and patient agreed this time. This was increased Patient reports she has enough at home for the 10mg daily and does not need prescription at this time Total Time Total Time Spent Total Time Spent (In Minutes): 45 Total Time Includes: Examination of the Patient, Discharge Planning and Communication With Other Providers Discharge Plan Discharge Items Patient Disposition: Home - Self-Care Reason For Visit: GENERALIZED WEAKNESS Discharge Diagnosis: Possible Multiple sclerosis Activity: Resume your previous activity Non-emergency contact: Primary Care Provider and Neurologist Call non-emergency contact if: you have any medication questions and your symptoms worsen Follow-up/Referrals: Ludy Santiago MD [Primary Care Provider] - (Date & Time 09/25/2024 1:20 PM Provider: Ludy Bob MD Family Medicine [facility] ) Diet: Regular Addtl Attending Provider Instructions: Mrs Brown You presented to the hospital weakness, dizziness and visual changes. Based on your evaluation, you are being diagnosed with possible multiple sclerosis. You are being discharged to follow up with Neurology office today to start further evaluation and treatment. Your lexapro was increased to 10mg at bedtime by Psychiatrist. Please ensure follow up with Neurology and your Primary Doctor. It was a pleasure taking care of you Pending Studies at Discharge: No Stand-Alone Forms: My [facility] [employer], Smoking Cessation Medications and DC Order Prescriptions: Continued melatonin 5 mg Tablet 5 mg PO HS fluticasone propionate 50 mcg/actuation spray,suspension 2 spray INTRANASAL DAILY PRN (Reason: allergies ) magnesium oxide 250 mg magnesium Tablet 250 mg PO HS cyanocobalamin (vitamin B-12) 500 mcg Tablet 1,000 mcg PO QAM 30 Days Qty: 60 0RF loratadine [Claritin] 10 mg Tablet 10 mg PO HS Changed escitalopram oxalate 10 mg tablet 10 mg PO HS Qty: 30 0RF Discharge Orders: Discharge Order (Routine); Ordered 09/23/24 Ordered By: Ciera Palafox Admission Data Admit Date/Time: 09/21/24 16:44 Attending Provider: Ciera Palafox I. Admit Provider: Radha Jimenez Primary Care Provider: Ludy Santiago Other Providers: Radha Jimenez; Sam Fay Rishikesh Other Interventions: Discharge Summary Assessment (RN) Last Done: 09/23/24 10:55
--- NOTE | 2024-09-23 22:23 | Electrocardiogram Report ---
Test Reason : Blood Pressure : */* mmHG Vent. Rate : 93 BPM Atrial Rate : 93 BPM P-R Int : 162 ms QRS Dur : 82 ms QT Int : 346 ms P-R-T Axes : 7 0 24 degrees QTcB Int : 430 ms Normal sinus rhythm Minimal voltage criteria for LVH, may be normal variant Cannot rule out Inferior infarct Abnormal ECG When compared with ECG of 21-Sep-2024 18:26, No significant change was found Confirmed by Darryl Fernandez ([id number]) on 09/23/2024 10:23:13 PM Referred By: REFERRED SELF Confirmed By: Darryl Fernandez
--- NOTE | 2024-09-23 22:24 | Electrocardiogram Report ---
Test Reason : Blood Pressure : */* mmHG Vent. Rate : 90 BPM Atrial Rate : 90 BPM P-R Int : 158 ms QRS Dur : 84 ms QT Int : 360 ms P-R-T Axes : 14 1 45 degrees QTcB Int : 441 ms Normal sinus rhythm Moderate voltage criteria for LVH, may be normal variant Possible Inferior infarct (cited on or before 20-Jul-2024) Nonspecific T wave abnormality Abnormal ECG When compared with ECG of 22-Sep-2024 16:36, No significant change Confirmed by Darryl Fernandez ([id number]) on 09/23/2024 10:24:13 PM Referred By: REFERRED SELF Confirmed By: Darryl Fernandez
== END 2024-09-23 12:45 | disposition home or self-care (01) | DRG 59 ==
LOC: ED 13:03 → 3W 16:44 → SUATTDRO 16:44 → 3W 17:37

== ENCOUNTER 2024-11-02 16:44 | Inpatient (IN) ==
[2024-11-02 17:11] LABS: Basophils # (auto) 0.03 K/uL (0.00-0.20); Basophils % (auto) 0.3 %; Eosinophils # (auto) 0.25 K/uL (0.00-0.50); Eosinophils % (auto) 2.3 %; Hemoglobin 12.5 g/dl (12.0-16.0); Immature Granulocytes # (auto) 0.07 K/uL (0.01-0.20); Immature Granulocytes % (auto) 0.6 %; Lymphocytes # (auto) 2.15 K/uL (1.20-3.40); Lymphocytes % (auto) 19.6 %; Mean Corpuscular Hemoglobin 28.6 pg (25.0-34.0); Mean Corpuscular Hgb Conc 32.9 g/dL (32.0-36.0); Mean Platelet Volume 9.5 fL (9.4-12.4); Monocytes # (auto) 0.41 K/uL (0.11-0.59); Monocytes % (auto) 3.7 %; Neutrophils # (auto) 8.08 K/uL (1.40-6.50); Neutrophils % (auto) 73.5 %; Platelet Count 346 K/uL (130-400); RDW Coefficient of Variation 13.6 % (11.5-14.5); RDW Standard Deviation 43.6 fL (36.4-46.3); Red Blood Count 4.37 M/uL (4.20-5.40); White Blood Count 10.99 K/ul (4.8-10.8)
--- NOTE | 2024-11-02 17:36 | Emergency Department Note ---
History of Present Illness General Chief complaint: Pain (Generalized) Stated complaint: MULTIPLE SCLEROSIS, NEUROLOGICAL SYMPTOMS, CHEST P Time Seen by Provider: 11/02/24 17:16 History of Present Illness This is a 39-year-old female that presents to the emergency department via private vehicle accompanied by with complaints of "MS, neurological symptoms, chest pain". The patient notes that she was recently discharged from [facility] this past . While she was admitted she notes that she had a flare of MS and ultimately had multiple MRIs showing improvement of brain lesions but new development in the thoracic spine. She underwent plasmapheresis. She was discharged home this past and was home Saturday doing well. She is able to work on some home projects. Throughout the weekend she notes she became quite tired sleeping 15 to 16 hours/day and now feels like she is not doing well. She feels like she is "crashing". The patient reached out to her neurologist and was referred here. Patient believes she needs to be admitted for help with her symptoms and medication management. No fevers. She does also note some chest pain, chronic in nature. She also notes recent EGD to further assess this while at [facility]. Home Medications Medication Instructions Recorded Confirmed Type melatonin 5 mg tablet 5 mg PO HS 08/25/24 11/02/24 History fluticasone propionate 50 2 spray intranasal DAILY PRN 09/09/24 11/02/24 History mcg/actuation nasal allergies spray,suspension magnesium oxide 250 mg PO HS 09/09/24 11/02/24 History loratadine 10 mg tablet (Claritin) 10 mg PO HS 09/21/24 11/02/24 History cholecalciferol (vitamin D3) 50 50 mcg PO QAM 10/01/24 11/02/24 History mcg (2,000 unit) capsule ofatumumab 20 mg/0.4 mL 20 mg (0.4 mL) subcut .COMPLEX #3 10/08/24 11/02/24 Rx subcutaneous pen injector mL (Kesimpta Pen) duloxetine 30 mg capsule,delayed 30 mg PO DAILY 11/02/24 11/02/24 History release omeprazole 40 mg capsule,delayed 40 mg PO BID 11/02/24 11/02/24 History release Allergies Allergy/AdvReac Type Severity Reaction Status Date / Time amoxicillin Allergy Severe ANAPHYLAXIS Verified 11/02/24 17:56 clavulanic acid Allergy Severe ANAPHYLAXIS Verified 11/02/24 17:56 sulfamethoxazole Allergy Severe tongue Verified 11/02/24 17:56 [From Bactrim] swelling trimethoprim [From Bactrim] Allergy Severe tongue Verified 11/02/24 17:56 swelling doxycycline Allergy Intermediate Rash Verified 11/02/24 17:56 fish derived Allergy Intermediate Hives Verified 11/02/24 17:56 metronidazole Allergy Intermediate rash Verified 11/02/24 17:56 coffee (Coffea arabica) Allergy Unknown per Verified 11/02/24 17:56 allergy testing Penicillins Allergy Unknown per Verified 11/02/24 17:56 allergy testing Past Med/Surg History Problem List (Updated 11/03/24 @ 02:54 by Jean-Paul Steward PA-C) Anxiety about health Psychosomatic factor in physical condition Multiple sclerosis (Acute) Demyelinating disorder (Acute) Dizziness (Acute) Abnormal brain MRI (Acute) Prolonged QT interval Pain Major depressive disorder, recurrent episode with anxious distress Sinus pressure (Acute) Abdominal pain (Acute) Anxiety (Acute) Dizziness (Acute) Chest pain (Acute) Cervical radiculopathy Dizziness (Acute) Headache (Acute) Vivid dream Somatic symptom disorder Chest pain (Acute) Pseudotumor cerebri (Acute) Dermatomyositis Small fiber neuropathy Headache Hypokalemia Persistent postural-perceptual dizziness Idiopathic intracranial hypertension Sinus tachycardia Palpitations Chest pain (Acute) POTS (postural orthostatic tachycardia syndrome) (Acute) Epigastric abdominal pain (Acute) Weakness (Acute) Change in mental status POTS (postural orthostatic tachycardia syndrome) (Acute) DVT (deep vein thrombosis) in Seizure-like activity Paresthesia Severe uncontrolled hypertension Vision changes High cholesterol GERD (gastroesophageal reflux disease) Anxiety and depression History of bulimia Insomnia Vitamin D deficiency Seasonal allergies Vitamin B12 deficiency Migraine Ankylosing spondylitis Degenerative disc disease Exercise-induced asthma Morbid obesity Thoracic disc disease Dysphagia Prediabetes Eustachian tube dysfunction Near syncope Inappropriate sinus tachycardia Abnormal EEG Hypersomnia Dietary counseling and surveillance Metabolic syndrome Pericarditis Medical History Headache Sinus tachycardia Chest pain Adjustment disorder with anxious mood Chest pain Fatigue COVID-19 Change in vision Dizziness History of pre-eclampsia History of bradycardia DVT (deep venous thrombosis) Morbid obesity with BMI of 40.0-44.9, adult Iron deficiency anemia Heart palpitations Surgical History History of esophagogastroduodenoscopy (EGD) History of wisdom tooth extraction History of cardiac cath 06/2015 @ [facility] [place]--d/t chest pain, normal no stents History of cholecystectomy Family History Father Hypertension Mother Diabetes Grandfather (Maternal) Diabetes Coronary heart disease Myocardial infarction Congestive heart failure Colorectal cancer Grandfather (Paternal) Diabetes Coronary heart disease Myocardial infarction, Onset Age: 50 Grandmother (Paternal) Pulmonary emphysema Sick sinus syndrome Diabetes Pacemaker Grandmother (Maternal) Family history of diabetes mellitus Aunt Pulmonary emphysema Family/Other Myocardial infarction, Onset Age: 37 Coronary heart disease Uncle Stroke Other Asthma Lymphoma No family history of adverse response to anesthesia Denies family history of Ovarian cancer Prostate cancer Breast cancer Social History Smoking Status: Former smoker Tobacco Type: Cigarettes and E-cigarettes / Vaping Age Started Using Tobacco: 26; Age Quit Using Tobacco: 28; Second Hand Exposure: No; Do You Dip or Chew Tobacco: No; Hx Alcohol Use: Yes Alcohol type: beer Hx Substance Use: No Preferred Language: [place] Communication Ability: Effective Communication Tools: Other Visual Impairment: No Limitations Hearing Ability: Normal Rail Manager Required: No Beliefs That Will Affect Care: None marital status: Current Living Situation: Family Current Living Situation Comment: lives at home with significant other and daughter current occupational status: employed 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 How many Children do You have: 1 Other Information That Helps Us Care for You: No Feels Safe at Home: Yes Safety Concerns: Feels Safe At This Time Childhood Exposure to Second-Hand Smoke: Yes Diet: regular caffeine: No during the past year weight has: remained stable Dental Care, Regularly: Yes Physical Activity Frequency: 5-6 Times per Week Seatbelt Use: never Sunscreen Use: Yes Gender Identity: Female Assistive Devices: Cane and Glasses Review of Systems A total of 10 systems reviewed and were otherwise negative Physical Exam Vital Signs Vital Signs - 24 hr 11/02/24 16:45 11/02/24 18:06 11/02/24 18:20 Temperature 36.6 C Temperature Source Oral Pulse Rate 103 H 90 Pulse Rate [Apical] 90 Respiratory Rate 18 13 Respiratory Effort / Characteristics Non-Labored Spontaneous Respiratory Depth Normal Respiratory Pattern Regular Blood Pressure 160/111 H Blood Pressure [Left Arm] 154/128 H Blood Pressure Mean 127 Blood Pressure Mean [Left Arm] 136 Blood Pressure Position [Left Arm] Semi-fowlers Pulse Oximetry 97 96 Oxygen Delivery Method Room Air Room Air Sepsis Recent Fever Within 48 Hours No Sepsis New/Unexplained Change in Mental Status N/A Sepsis Action Taken by Nursing No Action Required VITAL SIGNS - Vital signs and nursing notes were reviewed. Stable and afebrile. GENERAL - 39-year-old female appearing her stated age who is in no acute distress but is tearful. Communicates well with provider and answers questions appropriately. SKIN - Without rashes. HEAD - NC/AT. EYES - Sclera anicteric. EARS - No deformities of external structures noted on gross examination bilaterally. No pain elicited with palpation of the tragus bilaterally. External auditory canals without discharge or otorrhea. Tympanic membranes pearly beltran without retraction or bulging. No fluid or purulent material visualized behind the TM. Handle of malleus, umbo, cone of light, pars tensa/flaccid all easily visualized. NOSE - Midline and without cyanosis. No epistaxis or purulent drainage noted. Septum midline without deviation or septal hematoma noted. MOUTH/OROPHARYNX - Without perioral cyanosis. Buccal mucosa pink and moist and without leukoplakia. Tongue midline with equal elevation of palate bilaterally. No tonsillar hypertrophy, erythema, or exudates noted. Good dentition noted. NECK - Neck with FROM. Supple to palpation. No lymphadenopathy noted. No nuchal rigidity. LUNGS - Chest wall symmetric without accessory muscle use, intercostals retractions, or central cyanosis. Normal vesicular breath sounds CTA B/L. No wheezes, rales, or rhonchi appreciated. CARDIAC - RRR ABDOMEN - Abdominal contour normal without pulsations or visible masses. BS normoactive all four quadrants. No tenderness, palpable masses, hepatosplenomegaly, or ascites noted. EXTREMITIES - No clubbing or peripheral cyanosis. +5/5 strength noted in UE/LE bilaterally. NEUROLOGIC - Cranial nerves II through XII grossly intact. PSYCH -alert, oriented and pleasant on exam Course Administered Medications Enoxaparin Sodium (Enoxaparin Inj 40 Mg/0.4 Ml Syr) 40 mg SQ Q12H ANNA Stop: 12/02/24 20:59 Last Admin: 11/02/24 21:10 Dose: 40 mg Documented By: MED Loratadine (Loratadine 10 Mg Tab) 10 mg PO HS ANNA Stop: 12/02/24 20:59 Last Admin: 11/02/24 21:11 Dose: 10 mg Documented By: MED Magnesium Oxide (Magnesium Oxide 400 Mg Tab) 400 mg PO HS ANNA Stop: 12/02/24 20:59 Last Admin: 11/02/24 21:11 Dose: 400 mg Documented By: MED Melatonin (Melatonin 3 Mg Tab) 4.5 mg PO HS ANNA Stop: 12/02/24 20:59 Last Admin: 11/02/24 21:11 Dose: 4.5 mg Documented By: MED Nitroglycerin (Nitroglycerin 2% Ointment 30gm Tube) 0.5 inch EXT Q6H ANNA Stop: 12/02/24 20:59 Last Admin: 11/02/24 21:13 Dose: Not Given Documented By: MED Pantoprazole Sodium (Pantoprazole 40 Mg Tab) 40 mg PO BID ANNA Stop: 12/02/24 20:59 Last Admin: 11/02/24 21:11 Dose: 40 mg Documented By: MED Medical Decision Making Laboratory Data 11/02/24 16:57 11/02/24 16:57 Lab Results 11/02/24 Range/Units 16:57 WBC 10.99 H (4.8-10.8) K/ul RBC 4.37 (4.20-5.40) M/uL Hgb 12.5 (12.0-16.0) g/dl Hct 38.0 (37.0-47.0) % MCV 87.0 (80.0-100.0) fL MCH 28.6 (25.0-34.0) pg MCHC 32.9 (32.0-36.0) g/dL RDW Std Deviation 43.6 (36.4-46.3) fL RDW Coeff of Yash 13.6 (11.5-14.5) % Plt Count 346 (130-400) K/uL MPV 9.5 (9.4-12.4) fL Immature Gran % (Auto) 0.6 % Neut % (Auto) 73.5 % Lymph % (Auto) 19.6 % [place] % (Auto) 3.7 % Eos % (Auto) 2.3 % Baso % (Auto) 0.3 % Neut # (Auto) 8.08 H (1.40-6.50) K/uL Lymph # (Auto) 2.15 (1.20-3.40) K/uL [place] # (Auto) 0.41 (0.11-0.59) K/uL Eos # (Auto) 0.25 (0.00-0.50) K/uL Baso # (Auto) 0.03 (0.00-0.20) K/uL Immature Gran # (Auto) 0.07 (0.01-0.20) K/uL Sodium 138 (136-145) mmol/L Potassium 3.9 (3.5-5.1) mmol/L Chloride 104 (98-107) mmol/L Carbon Dioxide 25 (21-32) mmol/L Anion Gap 9 (3-11) BUN 9 (6-23) mg/dl Creatinine 0.60 (0.6-1.2) mg/dl Est Cr Clr Drug Dosing 156.6 ml/min eGFR 118.49 BUN/Creatinine Ratio 15.0 (10-20) Glucose 111 H (70-99(Fasting)) mg/dl Calcium 9.9 (8.6-10.3) mg/dl Total Bilirubin 0.4 (0.2-1.0) mg/dl AST 17 (13-39) U/L ALT 23 (7-52) U/L Alkaline Phosphatase 91 (34-104) U/L Troponin I High Sens < 2.3 (0-14) pg/ml Total Protein 7.5 (6.0-8.3) gm/dl Albumin 4.6 (3.4-5.0) gm/dl Globulin 2.9 (2.5-4.0) gm/dl Albumin/Globulin Ratio 1.6 (0.9-2) HCG, Qual Negative (Negative) Imaging Data Radiologist's Impression: Chest X-Ray 11/02/24 17:31 INDICATION: Chest pain. TECHNIQUE: Frontal radiograph of the chest. COMPARISON: Radiograph from 10/12/2024. FINDINGS: Cardiomegaly. Elevation of right hemidiaphragm. Mild pulmonary vascular congestion. No infiltrate, pleural effusion or pneumothorax. No acute osseous abnormality evident. IMPRESSION: Mild pulmonary vascular congestion. Electronically signed by Robin Fabian 11-02-2024 5:52 PM MDM Narrative Patient was seen and evaluated as above in room B12. Review was performed of nursing notes and vital signs. I did review pertinent previous visits and patient history. After obtaining a thorough history and physical examination the above work up was performed. Patient presents to us today for evaluation of ongoing challenges faced with MS management. She recently was discharged from [facility]. She was doing well she notes for about a day and then declined over the weekend. She reached out to her neurologist and was referred here today. On my examination no focal deficits. No fever or infectious symptoms. Options of care were discussed with the patient. IV access was established. Labs were drawn. EKG was performed. This reveals NSR rate of 86 bpm. QTc 414. QRS 74. No ST elevation on this rhythm tracing. Chest x-ray was added. Radiology report is as above noting mild pulmonary vascular congestion. Per my interpretation there is no pneumonia. I did review previous imaging. She also notes recent imaging at [facility]. The patient does desire inpatient management which I believe is reasonable at this time. There is leukocytosis 10.99. No anemia. No emergent metabolic disturbance. Troponin negative. hCG negative. No evidence of kidney or liver failure. I did discuss presentation with the hospitalist service. Please refer to further documentation regarding her stay. I do not believe that repeat imaging at this time is needed of the head or spine but certainly condition can be trended during her time here in the hospital. GCS: 15 In the evaluation and treatment of this patient the following differential diagnoses were entertained: MS, ACS, PE, pneumonia, dissection, among others. Impression & Plan Multiple sclerosis, Chest pain Discharge Plan Visit Data Chief Complaint: Pain (Generalized) Stated Complaint: MULTIPLE SCLEROSIS, NEUROLOGICAL SYMPTOMS, CHEST P ED Provider: Adam Bob ED Midlevel Provider: Jean-Paul Steward Discharge Problem: Multiple sclerosis, Chest pain Patient Disposition: Admitted As Inpatient Condition: Good Discharge Instructions Interventions: ED Discharge Assessment Last Done: 11/02/24 20:28
[2024-11-02 17:39] LABS: Alanine Aminotransferase 23 U/L (7-52); Albumin Globulin Ratio 1.6 (0.9-2); Albumin Level 4.6 gm/dl (3.4-5.0); Alkaline Phosphatase 91 U/L (34-104); Anion Gap 9 (3-11); Aspartate Aminotransferase 17 U/L (13-39); Bilirubin,Total 0.4 mg/dl (0.2-1.0); Blood Urea Nitrogen 9 mg/dl (6-23); Calcium 9.9 mg/dl (8.6-10.3); Carbon Dioxide 25 mmol/L (21-32); Chloride 104 mmol/L (98-107); Creatinine Clr Calc Pharmacy 156.6 ml/min; Globulin 2.9 gm/dl (2.5-4.0); Glucose 111 mg/dl (70-99(Fasting)); Potassium 3.9 mmol/L (3.5-5.1); Sodium 138 mmol/L (136-145); Total Protein 7.5 gm/dl (6.0-8.3)
--- NOTE | 2024-11-02 17:56 | XRay Report ---
INDICATION: Chest pain. TECHNIQUE: Frontal radiograph of the chest. COMPARISON: Radiograph from 10/12/2024. FINDINGS: Cardiomegaly. Elevation of right hemidiaphragm. Mild pulmonary vascular congestion. No infiltrate, pleural effusion or pneumothorax. No acute osseous abnormality evident. IMPRESSION: Mild pulmonary vascular congestion. Electronically signed by Robin Fabian 11-02-2024 5:52 PM
[2024-11-02 17:57] LABS: Troponin I High Sensitivity < 2.3 pg/ml (0-14)
[2024-11-02 18:04] LABS: Pregnancy Test, Serum Negative (Negative)
--- NOTE | 2024-11-02 19:30 | History & Physical Report ---
Date of Service November 02, 2024 Assessment & Plan (1) Multiple sclerosis: Plan: 39-year-old female with past medical history significant for insulin resistance, polycystic ovarian syndrome, MTHFR mutation, mild intermittent asthma, seasonal allergic rhinitis, hypertension, prolonged QT, morbid obesity, GERD, fibromyalgia, degenerative disc disease, plaque psoriasis, multiple sclerosis, atypical chest pain, atypical migraine, iron deficiency anemia, anxiety, dep ression, history of bulimia, general anxiety disorder, chronic fatigue, comes because of chest pain, epigastric abdominal pain, elevated blood pressure and weakness in the legs. Patient was recently diagnosed with MS and was started on Kesimpta. Patient was recently admitted at [facility] from to 10/29/2024. Patient admitted for blurred vision and lightheadedness and numbness in fingertips and brain fog. MRI scans were done which are showing active enhancing lesion at T1 spine indicative of active demyelination in addition to demyelinating supratentorial and infratentorial lesions without enhancement. The symptoms were not explained the findings but patient was treated as flare with plasmapheresis. She also had cardiac workup with normal EKG and was suspected atypical chest pain with recommendation to follow with cardiology as outpatient. GI was also consulted to further evaluate substernal pain and recommended IV PPI and EGD was done which showed gastritis and recommended omeprazole twice daily for 14 days then change to once daily after that. ENT also evaluated for right eustachian tube extrusion recommend outpatient follow-up. Psychiatry was consulted for anxiety and recommended switching from Lexapro to Cymbalta. Patient saying Cymbalta is causing a lot of problems she thinks is causing her abdominal pain ,chest pain and elevated blood pressure and feeling of spacing out. Since discharge she is also having 7/10 retrosternal chest pain and also epigastric abdominal pain. Pain sometimes radiates to the left shoulder. Sometimes she gets short of breath. Ongoing weakness in the legs and seems to getting worse. Tingly feeling all over. She called her MS specialist today and was advised to come to the hospital. Currently having headache. Sometimes she gets blurred vision. Her ears are somewhat bothering because of the tubes. No sore throat. No cough. No fevers. Appetite is down. No nausea. Normal bowel and bladder movements. Resting comfortably and Hemodynamics are okay. MS Lower extremity weakness Recently had plasmapheresis Also seems not able to care for self at home Currently on Kesimpta Patient follows with [facility] specialist Also follows with Dr. Braxton locally Will Consult Dr. Braxton in a.m. for further recommendation Chest pain Ongoing Seems atypical Initial troponin And EKG unremarkable Will do serial cardiac enzymes and echo N.p.o. after midnight Consult cardiology in a.m. for further recommendation Epigastric abdominal pain Patient recently had a EGD and showed gastritis and pathology was okay Continue omeprazole Elevated blood pressure Not on meds Nitropaste for now IV labetalol as needed Cardio consulted Close monitor Anxiety and depression and fibromyalgia Patient says recently Lexapro was changed to Cymbalta Says she is not tolerating Cymbalta Wanted to see psychiatry Morbid obesity Counseling There is a plan for sleep study Insulin resistance Will follow HbA1c levels DVT prophylaxis Lovenox Disposition Med/telemetry Full code. History of Present Illness Chief Complaint: Chest pain, abdominal pain, elevated blood pressure, weakness in the legs Primary Care Provider: Ludy Santaigo MD 39-year-old female with past medical history significant for insulin resistance, polycystic ovarian syndrome, MTHFR mutation, mild intermittent asthma, seasonal allergic rhinitis, hypertension, prolonged QT, morbid obesity, GERD, fibromyalgia, degenerative disc disease, plaque psoriasis, multiple sclerosis, atypical chest pain, atypical migraine, iron deficiency anemia, anxiety, depression, history of bulimia, general anxiety disorder, chronic fatigue, comes because of chest pain, epigastric abdominal pain, elevated blood pressure and weakness in the legs. Patient was recently diagnosed with MS and was started on Kesimpta. Patient was recently admitted at [facility] from to 10/29/2024. Patient admitted for blurred vision and lightheadedness and numbness in fingertips and brain fog. MRI scans were done which are showing active enhancing lesion at T1 spine indicative of active demyelination in addition to demyelinating supratentorial and infratentorial lesions without enhancement. The symptoms were not explained the findings but patient was treated as flare with plasmapheresis. She also had cardiac workup with normal EKG and was suspected atypical chest pain with recommendation to follow with cardiology as outpatient. GI was also consulted to further evaluate substernal pain and recommended IV PPI and EGD was done which showed gastritis and recommended omeprazole twice daily for 14 days then change to once daily after that. ENT also evaluated for right eustachian tube extrusion recommend outpatient follow-up. Psychiatry was consulted for anxiety and recommended switching from Lexapro to Cymbalta. Patient saying Cymbalta is causing a lot of problems she thinks is causing her abdominal pain ,chest pain and elevated blood pressure and feeling of spacing out. Since discharge she is also having 7/10 retrosternal chest pain and also epigastric abdominal pain. Pain sometimes radiates to the left shoulder. Sometimes she gets short of breath. Ongoing weakness in the legs and seems to getting worse. Tingly feeling all over. She called her MS specialist today and was advised to come to the hospital. Currently having headache. Sometimes she gets blurred vision. Her ears are somewhat bothering because of the tubes. No sore throat. No cough. No fevers. Appetite is down. No nausea. Normal bowel and bladder movements. Resting comfortably and Hemodynamics are okay. Past medical history. As mentioned above Past surgical history. Cardiac cath. Dental surgery. EGD. Laparoscopic cholecystectomy. Social history. Quit smoking in 2007. Smoked 0.1 pack a day for 1 year. No alcohol use currently. No drug use. Family history. Father has hypertension. Psoriasis. Mother has diabetes. Hypertension. Psoriasis. Paternal grandmother had sick sinus syndrome. Diabetes. Pacemaker. Maternal grandfather had CAD. Diabetes. Allergies Allergy/AdvReac Type Severity Reaction Status Date / Time amoxicillin Allergy Severe ANAPHYLAXIS Verified 11/02/24 17:56 clavulanic acid Allergy Severe ANAPHYLAXIS Verified 11/02/24 17:56 sulfamethoxazole Allergy Severe tongue Verified 11/02/24 17:56 [From Bactrim] swelling trimethoprim [From Bactrim] Allergy Severe tongue Verified 11/02/24 17:56 swelling doxycycline Allergy Intermediate Rash Verified 11/02/24 17:56 fish derived Allergy Intermediate Hives Verified 11/02/24 17:56 metronidazole Allergy Intermediate rash Verified 11/02/24 17:56 coffee (Coffea arabica) Allergy Unknown per Verified 11/02/24 17:56 allergy testing Penicillins Allergy Unknown per Verified 11/02/24 17:56 allergy testing Home Medications Medication Instructions Recorded Confirmed Type melatonin 5 mg tablet 5 mg PO HS 08/25/24 11/02/24 History fluticasone propionate 50 2 spray intranasal DAILY PRN 09/09/24 11/02/24 History mcg/actuation nasal allergies spray,suspension magnesium oxide 250 mg PO HS 09/09/24 11/02/24 History loratadine 10 mg tablet (Claritin) 10 mg PO HS 09/21/24 11/02/24 History cholecalciferol (vitamin D3) 50 50 mcg PO QAM 10/01/24 11/02/24 History mcg (2,000 unit) capsule ofatumumab 20 mg/0.4 mL 20 mg (0.4 mL) subcut .COMPLEX #3 10/08/24 11/02/24 Rx subcutaneous pen injector mL (Kesimpta Pen) duloxetine 30 mg capsule,delayed 30 mg PO DAILY 11/02/24 11/02/24 History release omeprazole 40 mg capsule,delayed 40 mg PO BID 11/02/24 11/02/24 History release Past Med/Surg History Problem List Anxiety about health Psychosomatic factor in physical condition Multiple sclerosis Demyelinating disorder (Acute) Dizziness (Acute) Abnormal brain MRI (Acute) Prolonged QT interval Pain Major depressive disorder, recurrent episode with anxious distress Sinus pressure (Acute) Abdominal pain (Acute) Anxiety (Acute) Dizziness (Acute) Chest pain (Acute) Cervical radiculopathy Dizziness (Acute) Headache (Acute) Vivid dream Somatic symptom disorder Chest pain (Acute) Pseudotumor cerebri (Acute) Dermatomyositis Small fiber neuropathy Headache Hypokalemia Persistent postural-perceptual dizziness Idiopathic intracranial hypertension Sinus tachycardia Palpitations Chest pain (Acute) POTS (postural orthostatic tachycardia syndrome) (Acute) Epigastric abdominal pain (Acute) Weakness (Acute) Change in mental status POTS (postural orthostatic tachycardia syndrome) (Acute) DVT (deep vein thrombosis) in Seizure-like activity Paresthesia Severe uncontrolled hypertension Vision changes High cholesterol GERD (gastroesophageal reflux disease) Anxiety and depression History of bulimia Insomnia Vitamin D deficiency Seasonal allergies Vitamin B12 deficiency Migraine Ankylosing spondylitis Degenerative disc disease Exercise-induced asthma Morbid obesity Thoracic disc disease Dysphagia Prediabetes Eustachian tube dysfunction Near syncope Inappropriate sinus tachycardia Abnormal EEG Hypersomnia Dietary counseling and surveillance Metabolic syndrome Pericarditis Medical History Headache Sinus tachycardia Chest pain Adjustment disorder with anxious mood Chest pain Fatigue COVID-19 Change in vision Dizziness History of pre-eclampsia History of bradycardia DVT (deep venous thrombosis) Morbid obesity with BMI of 40.0-44.9, adult Iron deficiency anemia Heart palpitations Surgical History History of esophagogastroduodenoscopy (EGD) History of wisdom tooth extraction History of cardiac cath 06/2015 @ [facility] [place]--d/t chest pain, normal no stents History of cholecystectomy Family History Father Hypertension Mother Diabetes Grandfather (Maternal) Diabetes Coronary heart disease Myocardial infarction Congestive heart failure Colorectal cancer Grandfather (Paternal) Diabetes Coronary heart disease Myocardial infarction, Onset Age: 50 Grandmother (Paternal) Pulmonary emphysema Sick sinus syndrome Diabetes Pacemaker Grandmother (Maternal) Family history of diabetes mellitus Aunt Pulmonary emphysema Family/Other Myocardial infarction, Onset Age: 37 Coronary heart disease Uncle Stroke Other Asthma Lymphoma No family history of adverse response to anesthesia Denies family history of Ovarian cancer Prostate cancer Breast cancer Social History Smoking Status: Current every day smoker Tobacco Type: Cigarettes and E-cigarettes / Vaping Age Started Using Tobacco: 26; Age Quit Using Tobacco: 28; Second Hand Exposure: No; Do You Dip or Chew Tobacco: No; Hx Alcohol Use: No Hx Substance Use: No Preferred Language: Mauritanian Communication Ability: Effective Communication Tools: Other Visual Impairment: No Limitations Hearing Ability: Normal 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 Beliefs That Will Affect Care: None marital status: Current Living Situation: Family Current Living Situation Comment: home with fiance and daughter current occupational status: employed 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 ENT- oropharynx clear Neck- supple, no JVD. Lungs- clear to auscultation no wheezing or crackles Heart- regular rate and rhythm; no murmur, no gallop. Abdomen- normal bowel sounds, soft, nontender, no distension Extremities- no pretibial edema, no erythema seen Neuro- alert, oriented PERRL, no facial palsy; no dysarthria; power 5/5 in lower extremities, sensation intact lower extremities Results & Data Results & Data Vital Signs (Past 12 Hours) Vital Signs Temp Pulse Pulse Resp BP BP Pulse Ox 11/02/24 18:20 90 11/02/24 18:06 90 13 154/128 H 96 11/02/24 16:45 36.6 C 103 H 18 160/111 H 97 O2 Del Method 11/02/24 18:20 11/02/24 18:06 Room Air 11/02/24 16:45 Room Air Diagnostic Findings Laboratory Results WBC 10.99 K/ul (4.8-10.8) H 11/02/24 16:57 RBC 4.37 M/uL (4.20-5.40) 11/02/24 16:57 Hgb 12.5 g/dl (12.0-16.0) 11/02/24 16:57 Hct 38.0 % (37.0-47.0) 11/02/24 16:57 MCV 87.0 fL (80.0-100.0) 11/02/24 16:57 MCH 28.6 pg (25.0-34.0) 11/02/24 16:57 MCHC 32.9 g/dL (32.0-36.0) 11/02/24 16:57 RDW Std Deviation 43.6 fL (36.4-46.3) 11/02/24 16:57 RDW Coeff of Yash 13.6 % (11.5-14.5) 11/02/24 16:57 Plt Count 346 K/uL (130-400) 11/02/24 16:57 MPV 9.5 fL (9.4-12.4) 11/02/24 16:57 Immature Gran % (Auto) 0.6 % 11/02/24 16:57 Neut % (Auto) 73.5 % 11/02/24 16:57 Lymph % (Auto) 19.6 % 11/02/24 16:57 [place] % (Auto) 3.7 % 11/02/24 16:57 Eos % (Auto) 2.3 % 11/02/24 16:57 Baso % (Auto) 0.3 % 11/02/24 16:57 Neut # (Auto) 8.08 K/uL (1.40-6.50) H 11/02/24 16:57 Lymph # (Auto) 2.15 K/uL (1.20-3.40) 11/02/24 16:57 [place] # (Auto) 0.41 K/uL (0.11-0.59) 11/02/24 16:57 Eos # (Auto) 0.25 K/uL (0.00-0.50) 11/02/24 16:57 Baso # (Auto) 0.03 K/uL (0.00-0.20) 11/02/24 16:57 Immature Gran # (Auto) 0.07 K/uL (0.01-0.20) 11/02/24 16:57 Sodium 138 mmol/L (136-145) 11/02/24 16:57 Potassium 3.9 mmol/L (3.5-5.1) 11/02/24 16:57 Chloride 104 mmol/L (98-107) 11/02/24 16:57 Carbon Dioxide 25 mmol/L (21-32) 11/02/24 16:57 Anion Gap 9 (3-11) 11/02/24 16:57 BUN 9 mg/dl (6-23) 11/02/24 16:57 Creatinine 0.60 mg/dl (0.6-1.2) 11/02/24 16:57 Est Cr Clr Drug Dosing 156.6 ml/min 11/02/24 16:57 eGFR 118.49 11/02/24 16:57 BUN/Creatinine Ratio 15.0 (10-20) 11/02/24 16:57 Glucose 111 mg/dl (70-99(Fasting)) H 11/02/24 16:57 Calcium 9.9 mg/dl (8.6-10.3) 11/02/24 16:57 Total Bilirubin 0.4 mg/dl (0.2-1.0) 11/02/24 16:57 AST 17 U/L (13-39) 11/02/24 16:57 ALT 23 U/L (7-52) 11/02/24 16:57 Alkaline Phosphatase 91 U/L (34-104) 11/02/24 16:57 Troponin I High Sens < 2.3 pg/ml (0-14) 11/02/24 16:57 Total Protein 7.5 gm/dl (6.0-8.3) 11/02/24 16:57 Albumin 4.6 gm/dl (3.4-5.0) 11/02/24 16:57 Globulin 2.9 gm/dl (2.5-4.0) 11/02/24 16:57 Albumin/Globulin Ratio 1.6 (0.9-2) 11/02/24 16:57 HCG, Qual Negative (Negative) 11/02/24 16:57 Impressions Chest X-Ray 11/02/24 17:31 INDICATION: Chest pain. TECHNIQUE: Frontal radiograph of the chest. COMPARISON: Radiograph from 10/12/2024. FINDINGS: Cardiomegaly. Elevation of right hemidiaphragm. Mild pulmonary vascular congestion. No infiltrate, pleural effusion or pneumothorax. No acute osseous abnormality evident. IMPRESSION: Mild pulmonary vascular congestion. Electronically signed by Robin Fabian 11-02-2024 5:52 PM ECG Additional Comments: ECG. Normal sinus rhythm rate of 86. Mild voltage criteria for LVH. QTc 414 Code Status & VTE Plan VTE Prophylaxis Plan VTE Prophylaxis will be ordered: Yes
[2024-11-02] MEDS ORDERED: ACETAMINOPHEN 325 MG TAB PO PRN (20:32)
[2024-11-02] MEDS ORDERED: POLYETHYLENE (MIRALAX) 17 GM PACK PO PRN (20:32)
[2024-11-02] MEDS ORDERED: LABETALOL HCL IV 5 MG/ML 20ML IV PRN (20:32)
[2024-11-02] MEDS ORDERED: NITROGLYCERIN SL 0.4 MG/TAB TAB SL PRN (20:32)
[2024-11-02] MEDS ORDERED: FLUTICASONE PROPIONATE NA SPR 16 GM BTL PRN (20:32)
[2024-11-02] MEDS: ENOXAPARIN INJ 40 MG/0.4 ML SYR SQ SCH (21:10)
[2024-11-02] MEDS: MELATONIN 3 MG TAB PO SCH (21:11)
[2024-11-02] MEDS: LORATADINE 10 MG TAB PO SCH (21:11)
[2024-11-02] MEDS: MAGNESIUM OXIDE 400 MG TAB PO SCH (21:11)
[2024-11-02] MEDS: PANTOprazole 40 MG TAB PO SCH (21:11)
[2024-11-02] MEDS: NITROGLYCERIN 2% OINTMENT 30GM TUBE EXT SCH (21:13)
[2024-11-03 06:41] LABS: Basophils # (auto) 0.03 K/uL (0.00-0.20); Basophils % (auto) 0.3 %; Eosinophils # (auto) 0.27 K/uL (0.00-0.50); Eosinophils % (auto) 2.8 %; Hematocrit (blood only) 34.7 % (37.0-47.0); Hemoglobin 11.4 g/dl (12.0-16.0); Immature Granulocytes # (auto) 0.06 K/uL (0.01-0.20); Immature Granulocytes % (auto) 0.6 %; Lymphocytes # (auto) 2.68 K/uL (1.20-3.40); Lymphocytes % (auto) 27.9 %; Mean Corpuscular Hemoglobin 29.2 pg (25.0-34.0); Mean Corpuscular Hgb Conc 32.9 g/dL (32.0-36.0); Mean Corpuscular Volume 88.7 fL (80.0-100.0); Mean Platelet Volume 9.6 fL (9.4-12.4); Monocytes # (auto) 0.48 K/uL (0.11-0.59); Neutrophils # (auto) 6.08 K/uL (1.40-6.50); Neutrophils % (auto) 63.4 %; Platelet Count 295 K/uL (130-400); RDW Coefficient of Variation 13.8 % (11.5-14.5); RDW Standard Deviation 44.4 fL (36.4-46.3); Red Blood Count 3.91 M/uL (4.20-5.40)
[2024-11-03 06:56] LABS: BUN Creatinine Ratio 18.6 (10-20); Calcium 9.3 mg/dl (8.6-10.3); Magnesium 2.2 mg/dl (1.7-2.4); Potassium 3.7 mmol/L (3.5-5.1)
[2024-11-03 07:03] LABS: Troponin I High Sensitivity 2.7 pg/ml (0-14)
[2024-11-03 07:23] LABS: Estimated Average Glucose 111 mg/dl; Hemoglobin A1C 5.5 % (4.5-5.6)
[2024-11-03] MEDS: CHOLECALCIFEROL 25 MCG (1000 UNITS) TAB PO SCH (08:15)
--- NOTE | 2024-11-03 08:31 | Cardiology Consultation ---
Date of Consultation November 03, 2024 Assessment & Plan (1) Multiple sclerosis: Plan Assessment: Patient is a 39 yo female with extensive medical history including atypical chest pain, hypertension, obstructive sleep apnea, morbid obesity, polycystic ovarian syndrome, multiple sclerosis, GERD, fibromyalgia, atypical migraine, generalized anxiety disorder, depression, and degenerative disc disease. She presented to the ER at [facility] on 11/02/24 with abdominal pain, chest pain, and elevated blood pressure. Review of records shows a long history of chest pain, palpitations, and sinus tachycardia. Patient was recently admitted at [facility] (10/22 - 10/29/24) with visual changes, brain fog, and numbness in fingertips in bilateral UE. Cardiology, GI, and psychiatry were consulted; records state the EKG was normal, EGD showed gastritis; Patient was treated for MS flare. Patient was discharged from [facility] on 10/29/24 and scheduled for outpatient follow-up with a multiple sclerosis specialist, GI f/u, psychiatry f/u, cardiology f/u, and sleep medicine evaluation for insomnia and HUGO. Cardiology services requested for assessment and recommendations. Plan: 1. Atypical chest pain -Patient with longstanding history of atypical chest pain; work up has been unrevealing so far, most recently during her hospitalization at [facility] 10/22-10/29/24, where she was treated for a multiple sclerosis flare. -Evaluations show no signs of ischemia at this time, including recent EKG and lab work. -EKG shows no acute changes. -Stress echo 08/25/24: No evidence of ischemia. -Zio monitor 08/18/24: Impression: Sinus and sinus tachycardia with elevated average heart rate of 91 bpm with very rare atrial and ventricular ectopy. -Echo 08/05/24: EF 60-65%. Norval LV systolic function and diastolic function, no valvular disease. -Cardiac cath 07/19/15: Angiographically normal coronary arteries, normal left ventriculogram. -Telemetry reviewed: Overnight NSR with some sinus tachycardia, rate 80 to 105. Today, NSR HR 80s. BP 121/85, P 83 -Please see Dr. Landry's assessment and plan below for further recommendations. -Continue outpatient f/u with [facility] cardiology. -Consider cardiac CT. 2. Multiple sclerosis -Patient follows with Neurology. -On Kesimpta -Plasmapheresis on 10/25/24 -Recommend continued neurology f/u. Case discussed with Dr. Landry. Further recommendations pending his evaluation and assessment. I spent a total of 65 minutes on the date of service in preparation, delivery, and documentation of the care provided to this patient, excluding any time spent in the performance of separately billed services. Garry Lozano, JODIEC Department of Cardiology, [facility] This chart was completed in part utilizing Speech Voice Recognition Software. Grammatical errors, random word insertions, pronoun errors, and incomplete sentences are an occasional consequence of this system due to software limitations, ambient noise, and hardware issues. Any formal questions or concerns about the content, text, or information contained within the body of this dictation should be directly addressed to the provider for clarification. Supervising Physician Co-Signing Physician Notes Attending attestation: Case reviewed with the advanced practitioner. I have personally performed a history and physical examination on the patient. I have reviewed the advanced practitioner's documentation on the date of service referenced in note, and I agree with, and take responsibility for the plan of care. Subjective: Patient presents with a myriad of somatic complaints including "feeling like she is disconnected from her body "and just discomfort. Chest discomfort has been an ongoing issue for her. She had undergone invasive coronary angiography at [facility] in 2016 at the age of 29. She states that this was for a different discomfort than what she describes now and that after that cardiac catheterization she had an abnormal HIDA scan which led to cholecystectomy and resolution of those symptoms. She states the present symptoms are different. She has followed up on and off again with our group since 2018, with noted previous diagnosis of inappropriate sinus tachycardia and in the past there has been concern that she has postural orthostatic tachycardia syndrome. She had been treated with trials of metoprolol which she did not tolerate with atypical side effects dating back to 2018. Exam: Cardiovascular: Regular rhythm, no murmurs, no edema Data: EKG x 2 this admission reassuring without acute abnormalities High-sensitivity troponin negative x 3 this admission. Her review of her recent records from she is in [place], she had 2 measurements of high-sensitivity troponin performed there on 10/15/2024 which were normal and an additional measurement on 10/24/2024 which was also normal. High-sensitivity troponin was also measured at this institution on a serial basis in September 2024, August,, July,, September, and they were all normal. There is a past history of hypercoagulable state, however patient had a CT angiogram of the chest that was negative for pulmonary embolism on 10/11/2024, performed for similar symptoms. An exercise stress echocardiogram had been performed at [facility] in August,, supervised by the undersigned, patient exercised in stage II Escobar protocol with noted chest discomfort at baseline which did not change with physical exertion and the stress EKG and echocardiographic response were negative for ischemia. Impression/ Plan: Above workup as described hollers reassurance from cardiac perspective. In addition to being seen by our group at this institution, patient is also continued to follow in [place]. She describes that a cardiac CT has been ordered and is tentatively scheduled within the [facility] but that her first CT appointment is unavailable for a prolonged interval of time, she states months from now. Patient does not plan in the near future. The patient's body habitus with BMI of 47.5 kg/m, increases the likelihood of artifact with cardiac CT. Cardiac CT is not performed at this institution. Imaging on the CT machine at [facility], is predicted to yield a technically limited study given the patient's elevated BMI. I think the best chance at a diagnostic study would be to have the study performed on the dual source CT scanner available at [facility] as an outpatient. The patient's telemetry reveals sinus rhythm in the 80s to 100s. A Zio patch monitor had been performed for subjective palpitations (which the patient still states she has) in August,. The patient wore the monitor for 1 day and 23 hours. The predominant rhythm was sinus rhythm with average rate of 91 bpm. Patient triggered events correlated with sinus rhythm and sinus tachycardia with rate ranging from 84 to 112 bpm. Two brief episodes of Mobitz type I second-degree AV block were observed at 6:25 AM and 8:13 AM H with a single dropped QRS complex and no prolonged bradycardia. Recommend proceeding with a trial of atenolol, 12.5 mg twice daily for treatment of her subjective palpitations and for heart rate reduction in advance of proposed cardiac CT. Patient does not plan in the anticipated future. I have canceled the order for the rest the echocardiogram that was placed this admission because I do not think would be additive to her workup at this present I spent a total of 30 minutes coordinating, documenting, and providing care for this patient excluding time spent in the performance of separately billed services or time spent by another provider. Juan Pablo Landry DO Cardiology History of Present Illness Reason for Consultation: Chest pain Requesting Physician: [facility] miki Attending Physician: Radha Jimenez MD History of Present Illness Patient is a 39 yo female with extensive medical history including atypical chest pain, hypertension, obstructive sleep apnea, morbid obesity, polycystic ovarian syndrome, multiple sclerosis, GERD, fibromyalgia, atypical migraine, generalized anxiety disorder, depression, and degenerative disc disease. She presented to the ER at [facility] on 11/02/24 with abdominal pain, chest pain, and elevated blood pressure. Review of records shows a long history of chest pain, palpitations, and sinus tachycardia. Patient was recently admitted at [facility] (10/22 - 10/29/24) with visual changes, brain fog, and numbness in fingertips in bilateral UE. During her stay at [facility] earlier this month , she was followed by Neurology, Internal Medicine, GI, and psychiatry. Record review includes findings of normal EKG, EGD showed gastritis; Patient was treated for MS flare. Patient was discharged from [facility] on 10/29/24 and scheduled for outpatient follow-up with a multiple sclerosis specialist, GI f/u, psychiatry f/u, cardiology f/u, and sleep medicine evaluation for insomnia and HUGO. Cardiology services requested for assessment and recommendations. At time of evaluation this morning, patient is resting in bed in no acute distress. Patient states she feels "like she is dying." Complains of chest pain "all over" which radiates to her left shoulder, described as achy in quality and a 2/10 in pain severity. She also complains of dizziness, lightheadedness, gener al unwellness, back pain, and anxiety. Patient states the chest pain and accompanying symptoms are similar to those experienced during her recent hospitalization at [place] in early October, however the symptoms are now more severe. Patient states she feels "mentally unstable." She notes that she was switched from Lexapro to Cymbalta within the last month. Patient states she follows with Dr. Robledo at [facility] cardiology for longstanding abnormal chest pain. Has been evaluated by Neurology locally as well as at [facility] with noted treatment including Kesimpta, plasmapheresis on 10/25/24. Telemetry reviewed: Overnight NSR with some sinus tachycardia, rate 80 to 105. Today, NSR HR 80s. BP 121/85, P 83 Allergies Allergy/AdvReac Type Severity Reaction Status Date / Time amoxicillin Allergy Severe ANAPHYLAXIS Verified 11/02/24 17:56 clavulanic acid Allergy Severe ANAPHYLAXIS Verified 11/02/24 17:56 sulfamethoxazole Allergy Severe tongue Verified 11/02/24 17:56 [From Bactrim] swelling trimethoprim [From Bactrim] Allergy Severe tongue Verified 11/02/24 17:56 swelling doxycycline Allergy Intermediate Rash Verified 11/02/24 17:56 fish derived Allergy Intermediate Hives Verified 11/02/24 17:56 metronidazole Allergy Intermediate rash Verified 11/02/24 17:56 coffee (Coffea arabica) Allergy Unknown per Verified 11/02/24 17:56 allergy testing Penicillins Allergy Unknown per Verified 11/02/24 17:56 allergy testing Home Medications Medication Instructions Recorded Confirmed Type melatonin 5 mg tablet 5 mg PO HS 08/25/24 11/02/24 History fluticasone propionate 50 2 spray intranasal DAILY PRN 09/09/24 11/02/24 History mcg/actuation nasal allergies spray,suspension magnesium oxide 250 mg PO HS 09/09/24 11/02/24 History loratadine 10 mg tablet (Claritin) 10 mg PO HS 09/21/24 11/02/24 History cholecalciferol (vitamin D3) 50 50 mcg PO QAM 10/01/24 11/02/24 History mcg (2,000 unit) capsule ofatumumab 20 mg/0.4 mL 20 mg (0.4 mL) subcut .COMPLEX #3 10/08/24 11/02/24 Rx subcutaneous pen injector mL (Kesimpta Pen) duloxetine 30 mg capsule,delayed 30 mg PO DAILY 11/02/24 11/02/24 History release omeprazole 40 mg capsule,delayed 40 mg PO BID 11/02/24 11/02/24 History release Patient History Medical History Headache Sinus tachycardia Chest pain Adjustment disorder with anxious mood Chest pain Fatigue COVID-19 Change in vision Dizziness History of pre-eclampsia History of bradycardia DVT (deep venous thrombosis) Morbid obesity with BMI of 40.0-44.9, adult Iron deficiency anemia Heart palpitations Surgical History History of esophagogastroduodenoscopy (EGD) History of wisdom tooth extraction History of cardiac cath 06/2015 @ [facility] [place]--d/t chest pain, normal no stents History of cholecystectomy Family History Father Hypertension Mother Diabetes Grandfather (Maternal) Diabetes Coronary heart disease Myocardial infarction Congestive heart failure Colorectal cancer Grandfather (Paternal) Diabetes Coronary heart disease Myocardial infarction, Onset Age: 50 Grandmother (Paternal) Pulmonary emphysema Sick sinus syndrome Diabetes Pacemaker Grandmother (Maternal) Family history of diabetes mellitus Aunt Pulmonary emphysema Family/Other Myocardial infarction, Onset Age: 37 Coronary heart disease Uncle Stroke Other Asthma Lymphoma No family history of adverse response to anesthesia Denies family history of Ovarian cancer Prostate cancer Breast cancer Social History Smoking Status: Former smoker Tobacco Type: Cigarettes and E-cigarettes / Vaping Age Started Using Tobacco: 26; Age Quit Using Tobacco: 28; Second Hand Exposure: No; Do You Dip or Chew Tobacco: No; Hx Alcohol Use: Yes Alcohol type: beer Hx Substance Use: No Preferred Language: Urugu[place] Communication Ability: Effective Communication Tools: Other Visual Impairment: No Limitations Hearing Ability: Normal Design Teacher Required: No Beliefs That Will Affect Care: None marital status: Current Living Situation: Family Current Living Situation Comment: lives at home with significant other and daughter current occupational status: employed 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 How many Children do You have: 1 Other Information That Helps Us Care for You: No Feels Safe at Home: Yes Safety Concerns: Feels Safe At This Time Childhood Exposure to Second-Hand Smoke: Yes Diet: regular caffeine: No during the past year weight has: remained stable Dental Care, Regularly: Yes Physical Activity Frequency: 5-6 Times per Week Seatbelt Use: never Sunscreen Use: Yes Gender Identity: Female Assistive Devices: None Review of Systems Review of Systems: All systems reviewed & are unremarkable except as noted in HPI & below Physical Exam Constitutional: + morbidly obese; not in distress Eyes: PERRL, conjunctivae normal, anicteric sclerae ENMT: external ear and nose normal, oropharynx normal Respiratory: normal respiratory effort, lungs clear to auscultation Cardiovascular: Extremities: no calf tenderness and no edema Distant heart sounds; examination limited by body habitus. Skin: no rashes, warm and dry Psychiatric: Orientation: oriented x 3 Mood: + depressed mood and + anxious mood Results & Data Vital Signs (Past 12 Hours) Vital Signs Temp Pulse Pulse Resp BP Pulse Ox Pulse Ox 11/03/24 08:05 36.9 C 83 18 121/85 93 11/03/24 07:00 87 11/03/24 03:33 36.4 C L 81 20 113/76 94 11/02/24 23:08 36.8 C 95 H 18 139/91 95 11/02/24 22:04 109 H 11/02/24 20:32 95 11/02/24 20:32 36.8 C 95 H 18 139/91 95 O2 Del Method O2 Del Method 11/03/24 08:05 Room Air 11/03/24 07:00 11/03/24 03:33 Room Air 11/02/24 23:08 Room Air 11/02/24 22:04 11/02/24 20:32 Room Air 11/02/24 20:32 Room Air Laboratory Results Cardiac Enzymes 11/02/24 11/02/24 11/03/24 Range/Units 16:57 19:30 05:33 AST 17 (13-39) U/L Troponin I High Sens < 2.3 < 2.3 2.7 (0-14) pg/ml CBC 11/02/24 11/03/24 Range/Units 16:57 05:33 WBC 10.99 H 9.60 (4.8-10.8) K/ul RBC 4.37 3.91 L (4.20-5.40) M/uL Hgb 12.5 11.4 L (12.0-16.0) g/dl Hct 38.0 34.7 L (37.0-47.0) % Plt Count 346 295 (130-400) K/uL Neut # (Auto) 8.08 H 6.08 (1.40-6.50) K/uL Lymph # (Auto) 2.15 2.68 (1.20-3.40) K/uL Kane # (Auto) 0.41 0.48 (0.11-0.59) K/uL Eos # (Auto) 0.25 0.27 (0.00-0.50) K/uL Baso # (Auto) 0.03 0.03 (0.00-0.20) K/uL Comprehensive Metabolic Panel 11/02/24 11/03/24 Range/Units 16:57 05:33 Sodium 138 140 (136-145) mmol/L Potassium 3.9 3.7 (3.5-5.1) mmol/L Chloride 104 106 (98-107) mmol/L Carbon Dioxide 25 25 (21-32) mmol/L BUN 9 11 (6-23) mg/dl Creatinine 0.60 0.59 L (0.6-1.2) mg/dl Glucose 111 H 90 (70-99(Fasting)) mg/dl Calcium 9.9 9.3 (8.6-10.3) mg/dl AST 17 (13-39) U/L ALT 23 (7-52) U/L Alkaline Phosphatase 91 (34-104) U/L Total Protein 7.5 (6.0-8.3) gm/dl Albumin 4.6 (3.4-5.0) gm/dl Intake and Output 11/02/24 11/03/24 11/03/24 22:59 06:59 14:59 Intake Total 520 / 520 Balance 520 / 520 Intake: Oral 520 / 520 Other: Weight 118 kg 117.7 kg Weight Measurement Method Standing Scale Diagnostic Findings EKG 11/03/24: NSR, rate 80 bpm, QTc 456, moderate voltage criteria for LVH,No acute repolarization changes to suggest ischemia. EKG 11/02/24: NSR, rate 86 bpm, QTc 414, minimal voltage criteria for LVH. No acute repolarization changes to suggest ischemia MRI brain, spine 10/23/24 while inpatient at [facility]: IMPRESSION 1. New enhancing lesion within the left lateral spinal cord at the T2 level, consistent with active demyelination. 2. Supratentorial and infratentorial demyelinating lesions without contrast enhancement. No prior MRIs of the brain are available for comparison. Stress echo 08/25/24: No evidence of ischemia. Zio monitor 08/18/24: Impression: Sinus and sinus tachycardia with elevated average heart rate of 91 bpm with very rare atrial and ventricular ectopy. Echo 08/05/24: EF 60-65%. Norval LV systolic function and diastolic function, no valvular disease. Cardiac cath 07/19/15: Angiographically normal coronary arteries, normal left ventriculogram Medications Administered Current Inpatient Medications Acetaminophen (Acetaminophen 325 Mg Tab) 650 mg PO Q4H PRN PRN Reason: Pain or Fever Stop: 12/02/24 20:31 Enoxaparin Sodium (Enoxaparin Inj 40 Mg/0.4 Ml Syr) 40 mg SQ Q12H ANNA Stop: 12/02/24 20:59 Last Admin: 11/03/24 07:56 Dose: Not Given Fluticasone Propionate (Fluticasone Propionate Na Spr 16 Gm Btl) 2 sprays NA DAILY PRN PRN Reason: allergies Stop: 12/02/24 20:31 Labetalol HCl (Labetalol Hcl Iv 5 Mg/Ml 20ml) 10 mg IV Q4H PRN PRN Reason: Hypertension Stop: 12/02/24 20:31 Loratadine (Loratadine 10 Mg Tab) 10 mg PO HS ANNA Stop: 12/02/24 20:59 Last Admin: 11/02/24 21:11 Dose: 10 mg Magnesium Oxide (Magnesium Oxide 400 Mg Tab) 400 mg PO HS ANNA Stop: 12/02/24 20:59 Last Admin: 11/02/24 21:11 Dose: 400 mg Melatonin (Melatonin 3 Mg Tab) 4.5 mg PO HS ANNA Stop: 12/02/24 20:59 Last Admin: 11/02/24 21:11 Dose: 4.5 mg Nitroglycerin (Nitroglycerin Sl 0.4 Mg/Tab Tab) 0.4 mg SL Q5M PRN PRN Reason: Chest Pain Stop: 12/02/24 20:31 Nitroglycerin (Nitroglycerin 2% Ointment 30gm Tube) 0.5 inch EXT Q6H ANNA Stop: 12/02/24 20:59 Last Admin: 11/02/24 21:13 Dose: Not Given Pantoprazole Sodium (Pantoprazole 40 Mg Tab) 40 mg PO BID ANNA Stop: 12/02/24 20:59 Last Admin: 11/03/24 08:15 Dose: 40 mg Polyethylene Glycol (Polyethylene (Miralax) 17 Gm Pack) 17 gm PO DAILY PRN PRN Reason: Constipation Stop: 12/02/24 20:31 Vitamin D (Cholecalciferol 25 Mcg (1000 Units) Tab) 50 mcg PO [facility] Stop: 12/03/24 08:59 Last Admin: 11/03/24 08:15 Dose: 50 mcg
--- NOTE | 2024-11-03 11:15 | Neurology Consultation ---
Date of Consultation November 03, 2024 Assessment & Plan (1) Multiple sclerosis: Plan The patient has been diagnosed with multiple sclerosis based on clinical picture, MRI imaging and positive lumbar puncture. She has been initiated on Kesimpta over the last 2 to 3 weeks. From October through October 29 she was at [facility] in [place] being evaluated by neurology, cardiology, GI, and psychiatry. She had MRIs of her brain, cervical spine and thoracic spine that showed a new T-spine lesion (I am uncertain at what level as I do not have the films or report). She was given plasma exchange treatment daily for 3 days. This did not make any difference in her symptoms. She continues to have continuous symptoms including worsening blurry vision (which can wax and wane) whole body tingling and dysesthesias, anterior chest pain, and an unusual fogginess to her thinking which she calls "brain fog" or "brain is detached". She does have known anxiety and depression has been followed by psychiatry. Last week, she was switched from escitalopram to duloxetine 30. She does not feel that this helps. She has been seen by Dr. Ramirez, an MS specialist at [place] earlier this month and has another appointment with this physician next month. The patient is not done well with steroids (given to her early September). Interestingly, despite all of her symptoms, she has no actual focal neurologic deficits or abnormalities on examination. There are no meningeal signs and no obvious encephalopathy. Given all of her issues which she relates as being chronic and progressive, she is very relaxed, friendly, and appearing normal sitting in bed. Recommendations: 1. There is no point in repeating MRIs (and she has had many MRIs since the beginning of this year). We could get the films and reports from [facility] last week pushed into our system 2. Continue Kesimpta as prescribed 3. Follow-up with Dr. Ramirez for any other specific recommendations regarding her MS diagnosis or treatment. She has an appointment apparently November 29. 4. Increase activity as able and consider physical and Occupational Therapy. 5. Psychiatry has been consultedawaiting their court 6. Could consider B12, vitamin D, TSH (was elevated in September), ESR, CRP, if not done at [place] last week 7. The patient wants to follow-up with Dr. Braxton as well and can see him as an outpatient (although I do not believe she needs multiple neurologists) 8. Could consider IV Solu-Medrol 1 g a day for 3 days, however, this did not help her much the last time it was given in early September. Overall, I spent a total of 90 minutes with this case including review of records, direct evaluation of the patient, report generation, and discussing the case with Dr. Jimenez, including differential diagnosis and treatment options. History of Present Illness Reason for Consultation: Patient is a 39-year-old, who I was asked to see at the request of Dr. Lozano, for neurologic consultation regarding MS and other issues Requesting Physician: Dr. Lozano Attending Physician: Radha Jimenez MD History of Present Illness I last saw this patient September 23, 2024. She has a long and complicated history which she is summarized below: Has been known to [facility] neurology since April [address] Renner for lightheadedness/dizziness and intractable tension headaches. She had a number of tests both at [facility] and at other institutions as follows (which were all unremarkable): MRI of brain with without contrast 2015, November 2017, March 2020 MRA of head December 2020, May 2020 MRV of head May 2019, May 2020, MRV of head with contrast report not available 2020 CT of head-January 2021, December 2020, November 2020, April 2020, October 2017 CT cervical spine December 2020 CT sinuses April 2020 CT echocardiogram November 2020 MRI cervical spine July 2019, January 2018, January 2016 MRI thoracic spine November 2017 Lumbar puncture June 2020 opening pressure 19, [facility] [place] Venous Doppler 2017, 2018, 2019 EEG continuous video monitoring x4 days [facility] June 2020 I saw her in June 2021 and she had another normal MRI of the brain. By September 2021 she had been diagnosed with idiopathic intracranial hypertension as noted by symptoms and a lumbar puncture which had a borderline increased opening pressure of 23. MRI of the brain and MRV were unremarkable. There was no inflammation or infection in the LP. She was given Diamox and felt that it did not help and gave her side effects so it was discontinued. By September 2021 she had the following diagnoses: Persistent postural/perceptual dizziness, POTS, nonspecific weakness, headaches (mixed variety) ankylosing spondylitis, and possible small fiber neuropathy. She was essentially lost to follow-up at [facility] and her symptoms were largely improved. She had no cognitive issues or vision problems. Starting in late June she had the onset of new vision issues consisting of blurriness or "hyper sharp" vision. She could occasionally have color washout and very occasionally some double vision. In addition, she has had persistent numbness in her hands for years (EMGs have shown no evidence of distal mononeuropathy or cervical radiculopathy), nonspecific generalized weakness and poor balance. She had some other numbness areas in her scalp or chest randomly. She saw an librarian special collections on July 31, 2024 who found no papilledema or other optic abnormalities. She was admitted to the hospital in July and saw Dr. Braxton. MRI of the brain, MRV of the head, and MRA of the head were all normal (although there were a few, punctate, nonspecific spots seen in the head). Lumbar puncture at that time showed an opening pressure of 23 with 11 white cells and a protein of 26. She was put on Diamox twice a day for presumed idiopathic intracranial hypertension. This gave her side effects, did not help, and she stopped this medication. Patient was having some nonspecific staring episodes. She states that she will get episodes of "dj vu" accompanied by a "spacey and foggy feeling" lasting 20 to 30 seconds and then recovering without any sequelae. These are intermittent but currently, she says she gets them every day. An EEG showed some left f rontotemporal slowing of a nonspecific nature August 26, 2024. The patient was back in the hospital in late August 2024 for worsening visual and other symptoms. B12 was 252, Lyme antibody titers negative, TSH was 2.0. Neurologic examination was nonfocal/unremarkable. MRI of the brain without contrast showed a few white matter spots that were not present on previous film. MRI of the brain with contrast showed enhancing lesions particularly in the right cerebellum and periventricular corpus callosum area. 1 or 2 of these lesions now present were perpendicular to the ventricular system ("Pendleton's fingers"). MRI of the cervical spine with and without contrast showed no obvious/concrete cervical spine lesion. There are a couple of shadows that were suspicious but they did not enhance. There was some degenerative changes particularly at C5-6. MRI of the thoracic spine with and without contrast showed no spinal cord lesions or enhancement. A lumbar puncture was performed Susana 1 with an opening pressure of 23 (again these measurements were made with the patient in prone position which could make a pressure reading falsely elevated. There was 1 white cell and a protein of 24. CSF Lyme was negative. Special protein studies showed an elevated IgG index of 1.74 (normal less than 0.7), elevated IgG synthesis rate of 11.3 (normal -9 0.9-3.3), and greater than 5 well-defined oligoclonal bands present. Aquaporin 4 antibody on September 15 was negative The patient was given 3 days of IV Solu-Medrol, 1 g/day followed by a tapering steroid course. Her visual symptoms improved very nicely for 2 days but the other symptoms did not change much. She was discharged on September 17. In retrospect, she says the steroids really did not help. Patient was then seen by Dr. Braxton as an outpatient (most recently October 05, 2024) for which she diagnosed MS and POTS Kesimpta was started at the end of September. Because of seizure-like activity the patient had been displaying throughout this year intermittently she underwent a 72-hour ambulatory EEG from October 02 through October 05. This EEG study was normal/unremarkable. The patient continues to show up at the emergency room for symptoms which she feels are progressing. They stem around "brain fog" and having a "brain detached from reality". Her vision is getting worse and she has bilateral blurriness which waxes and wanes. She has numbness and tingling all over her body including her head trunk arms legs fingers and toes. Her hands can be numb. She has some sternal chest pain radiating up to the left anterior chest with no back pain or spine pain. Sometimes she gets some pain between her shoulder blades. Her gait is fairly good but she has weakness in her legs. She is been lightheaded and dizzy with ringing in her ears. Patient was admitted at [facility] from October 22 through October 29. She saw Evette Ramirez MD, a [facility] multiple sclerosis/neuro marketing specialist in consultation on October 20. She ordered MRI of the brain, cervical spine, and thoracic spine. Apparently the MRI of the brain and cervical spine did not show any new issues but an MRI of the thoracic spine showed a new enhancing lesion. Unfortunately, I do not have the specific films or reports. Apparently she was given plasma exchange (Plex) daily for 3 days. The patient states that this did not help although in the discharge note it states that he did help. She certainly tolerated Plex well The patient is to follow with Dr. Ramirez next month. The patient continues to have the symptoms as listed above getting worse, showed up to the emergency room November 02 and was admitted. Her blood pressure was 160/111 on [place]. Today is 121/85. Allergies Allergy/AdvReac Type Severity Reaction Status Date / Time amoxicillin Allergy Severe ANAPHYLAXIS Verified 11/02/24 17:56 clavulanic acid Allergy Severe ANAPHYLAXIS Verified 11/02/24 17:56 sulfamethoxazole Allergy Severe tongue Verified 11/02/24 17:56 [From Bactrim] swelling trimethoprim [From Bactrim] Allergy Severe tongue Verified 11/02/24 17:56 swelling doxycycline Allergy Intermediate Rash Verified 11/02/24 17:56 fish derived Allergy Intermediate Hives Verified 11/02/24 17:56 metronidazole Allergy Intermediate rash Verified 11/02/24 17:56 coffee (Coffea arabica) Allergy Unknown per Verified 11/02/24 17:56 allergy testing Penicillins Allergy Unknown per Verified 11/02/24 17:56 allergy testing Home Medications Medication Instructions Recorded Confirmed Type melatonin 5 mg tablet 5 mg PO HS 08/25/24 11/02/24 History fluticasone propionate 50 2 spray intranasal DAILY PRN 09/09/24 11/02/24 History mcg/actuation nasal allergies spray,suspension magnesium oxide 250 mg PO HS 09/09/24 11/02/24 History loratadine 10 mg tablet (Claritin) 10 mg PO HS 09/21/24 11/02/24 History cholecalciferol (vitamin D3) 50 50 mcg PO QAM 10/01/24 11/02/24 History mcg (2,000 unit) capsule ofatumumab 20 mg/0.4 mL 20 mg (0.4 mL) subcut .COMPLEX #3 10/08/24 11/02/24 Rx subcutaneous pen injector mL (Kesimpta Pen) duloxetine 30 mg capsule,delayed 30 mg PO DAILY 11/02/24 11/02/24 History release omeprazole 40 mg capsule,delayed 40 mg PO BID 11/02/24 11/02/24 History release Patient History Medical History Headache Sinus tachycardia Chest pain Adjustment disorder with anxious mood Chest pain Fatigue COVID-19 Change in vision Dizziness History of pre-eclampsia History of bradycardia DVT (deep venous thrombosis) Morbid obesity with BMI of 40.0-44.9, adult Iron deficiency anemia Heart palpitations Surgical History History of esophagogastroduodenoscopy (EGD) History of wisdom tooth extraction History of cardiac cath 06/2015 @ [facility] [place]--d/t chest pain, normal no stents History of cholecystectomy Family History Father Hypertension Mother Diabetes Grandfather (Maternal) Diabetes Coronary heart disease Myocardial infarction Congestive heart failure Colorectal cancer Grandfather (Paternal) Diabetes Coronary heart disease Myocardial infarction, Onset Age: 50 Grandmother (Paternal) Pulmonary emphysema Sick sinus syndrome Diabetes Pacemaker Grandmother (Maternal) Family history of diabetes mellitus Aunt Pulmonary emphysema Family/Other Myocardial infarction, Onset Age: 37 Coronary heart disease Uncle Stroke Other Asthma Lymphoma No family history of adverse response to anesthesia Denies family history of Ovarian cancer Prostate cancer Breast cancer Social History Smoking Status: Former smoker Tobacco Type: Cigarettes and E-cigarettes / Vaping Age Started Using Tobacco: 26; Age Quit Using Tobacco: 28; Second Hand Exposure: No; Do You Dip or Chew Tobacco: No; Hx Alcohol Use: Yes Alcohol type: beer Hx Substance Use: No Preferred Language: Croatian Communication Ability: Effective Communication Tools: Other Visual Impairment: No Limitations Hearing Ability: Normal Storeroom Keeper Required: No Beliefs That Will Affect Care: None marital status: Current Living Situation: Family Current Living Situation Comment: lives at home with significant other and daughter current occupational status: employed 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 How many Children do You have: 1 Other Information That Helps Us Care for You: No Feels Safe at Home: Yes Safety Concerns: Feels Safe At This Time Childhood Exposure to Second-Hand Smoke: Yes Diet: regular caffeine: No during the past year weight has: remained stable Dental Care, Regularly: Yes Physical Activity Frequency: 5-6 Times per Week Seatbelt Use: never Sunscreen Use: Yes Gender Identity: Female Assistive Devices: Cane and Glasses Review of Systems Constitutional: + fatigue and + weakness; no fever Eyes: + worsening vision; no diplopia and no e ye pain Ear, Nose, Mouth, Throat: no ear pain, no tinnitus, no hearing loss, no dizziness, no snoring, no hoarseness and no dysphagia Respiratory: no cough and no dyspnea Cardiovascular: no chest pain, no palpitations and no lightheadedness Gastrointestinal: no abdominal pain, no nausea and no vomiting Genitourinary: no dysuria, no urinary frequency and no urinary incontinence Musculoskeletal: no back pain, no neck pain, no radicular pain, no joint pain and no myalgia Integumentary: no rash and no lesions Neurologic: + generalized weakness and + numbness; n o gait abnormality, no localized weakness, no tingling, no tremor(s), no abnormal movements, no headache(s), no abnormal speech, no confusion and no memory loss Psychiatric: no depression, no irritability, no anxiety, no difficulty concentrating, no confusion and no hallucinations Endocrine: no fatigue and no flushing Hematologic / Lymphatic: no easy bleeding and no easy bruising Allergy / Immunological: no urticaria and no problem reported Exam (Neuro) Physical Exam: The patient is right-handed. The patient is awake, alert, and attentive. Speech is normal without any aphasia or dysarthria. Mentation and thought processes are intact, with full orientation and normal fund of knowledge. Mood and affect are normal and appropriate. Appearance and grooming are normal. Short and long-term memory are intact. This patient does not look in distress, anxious, or depressed. Pupils are 4 mm bilaterally and reactive to light. Extraocular eye muscles are intact without nystagmus. Visual acuity and visual kowalski seem normal grossly to confrontation. There are no deficits to sensation in the face in all 3 distributions of the fifth cranial nerve bilaterally. Corneal reflexes are positive bilaterally. Facial strength and symmetry was normal bilaterally. Hearing seems intact grossly to voice and finger rub bilaterally. Palate moves well without asymmetry. There is normal sternocleidomastoid and trapezius strength bilaterally. Tongue is midline with good strength bilaterally. Neck has a full range of motion without discomfort. There are no cervical bruits bilaterally. There are no cranial or ocular bruits. Heart is without murmur. There is a regular rhythm and rate. Cervical, thoracic, and lumbar spine are nontender to palpation. Stance sitting up in bed is normal. With outstretched arms there is no drift. There are no resting, postural, or action tremors. There is no ataxia with finger to nose testing. There is good facility in the hands. No other abnormal involuntary movements are noted. Motor strength is 5/5 diffusely in the arms bilaterally including deltoids, biceps, triceps, brachioradialis, wrist flexors and extensors, rn triage, and intrinsic hand muscles. Motor strength is 5/5 diffusely in the legs bilaterally including hip flexors, quadriceps, hamstrings, gastrocnemius, tibialis anterior, tibialis posterior, and Peroneii muscles bilaterally. Toe extensors are normal and there is good bulk in the extensor digitorum brevis muscles bilaterally. The limbs have good tone without rigidity or spasticity. There is no atrophy noted in the muscles. Muscle bulk is normal, there is no tenderness to palpation, no myotonia to percussion, and no fasciculations seen. Sensory examination is intact to touch and pin throughout all 4 limbs diffusely. Reflexes are 2/4 in the biceps, triceps, brachioradialis, quadriceps, and Achilles tendons bilaterally. Toes are downgoing with plantar stimulation bilaterally. Peripheral pulses are present and of normal quality distally in all 4 limbs. There is no peripheral edema noted in the limbs. Results & Data Vital Signs (Past 12 Hours) Vital Signs Temp Pulse Pulse Resp BP Pulse Ox O2 Del Method 11/03/24 08:05 36.9 C 83 18 121/85 93 Room Air 11/03/24 07:00 87 11/03/24 03:33 36.4 C L 81 20 113/76 94 Room Air 11/02/24 23:08 36.8 C 95 H 18 139/91 95 Room Air PG Care Time/CCT Total # of Minutes Spent Total Time Spent with Patient: Total time spent is greater than 50% in coordination of care (as documented) at patient's floor/unit and/or counseling patient: Coding Level of Care Code 91128 INT INP/OBS CARE 3/75MIN Diagnoses Multiple sclerosis G35 Time Spent (min) 90
--- NOTE | 2024-11-03 13:08 | Electrocardiogram Report ---
Test Reason : Blood Pressure : */* mmHG Vent. Rate : 86 BPM Atrial Rate : 86 BPM P-R Int : 158 ms QRS Dur : 74 ms QT Int : 346 ms P-R-T Axes : 14 0 5 degrees QTcB Int : 414 ms Normal sinus rhythm Minimal voltage criteria for LVH, may be normal variant ( R in aVL ) Cannot rule out Anterior infarct (cited on or before 20-Jul-2024) Abnormal ECG When compared with ECG of 12-Oct-2024 16:52, QT has shortened Confirmed by Adam Stuart ([id number]) on 11/03/2024 1:08:06 PM Referred By: Errol Wesley Confirmed By: Adam Stuart
--- NOTE | 2024-11-03 13:15 | Electrocardiogram Report ---
Test Reason : Blood Pressure : */* mmHG Vent. Rate : 80 BPM Atrial Rate : 80 BPM P-R Int : 170 ms QRS Dur : 84 ms QT Int : 396 ms P-R-T Axes : 10 -5 14 degrees QTcB Int : 456 ms Normal sinus rhythm Moderate voltage criteria for LVH, may be normal variant Borderline ECG When compared with ECG of 02-Nov-2024 16:53, (unconfirmed) No significant change was found Confirmed by Adam Stuart ([id number]) on 11/03/2024 1:15:26 PM Referred By: Errol Wesley Confirmed By: Adam Stuart
--- NOTE | 2024-11-03 15:29 | Ultrasound Report ---
RIGHT AXILLARY ULTRASOUND CLINICAL HISTORY: Lymphadenopathy. Palpable right axillary lump. COMPARISON STUDY: No previous studies for comparison. TECHNIQUE: Sonography of the right axilla site of palpable lump was performed. FINDINGS: At site of palpable lump within the right axilla, there is a corresponding 0.9 x 0.6 x 0.4 cm subcutaneous hypoechoic nodule which contains color flow. This is immediately deep to the dermis. IMPRESSION: 0.9 x 0.6 x 0.4 cm right axillary subcutaneous hypoechoic nodule which corresponds to th e palpable lump. The sonographic appearance is nonspecific. This may represent a lymph node although is more superficial than expected. A complex cystic lesion or small abscess are also within the diffe rential. A soft tissue mass cannot be completely excluded and therefore clinical follow-up to ensure stability/resolution is recommended. If progressive enlargement, repeat ultrasound is recommended. ACT 112: Negative or not required by law. Electronically signed by: Geremias Andrews M.D. 11/03/2024 3:27 PM
[2024-11-03] MEDS: ATENOLOL 25 MG TABLET PO SCH (15:53)
--- NOTE | 2024-11-03 16:22 | Hospitalist Progress Note ---
Date of Service November 03, 2024 Assessment & Plan (1) Multiple sclerosis: Plan: 39-year-old female with past medical history significant for insulin resistance, polycystic ovarian syndrome, MTHFR mutation, mild intermittent asthma, seasonal allergic rhinitis, hypertension, prolonged QT, morbid obesity, GERD, fibromyalgia, degenerative disc disease, plaque psoriasis, multiple sclerosis, atypical chest pain, atypical migraine, iron deficiency anemia, anxiety, dep ression, history of bulimia, general anxiety disorder, chronic fatigue, comes because of chest pain, epigastric abdominal pain, elevated blood pressure and weakness in the legs. MS Lower extremity weakness Recently had plasmapheresis Currently on Kesimpta Patient follows with [facility] specialist, Dr. Ramirez. Consider reaching out to this specialist in the AM Also follows with Dr. Braxton [place] [facility] [place] consulted, appreciate recs Chest pain Seems atypical Initial troponin and EKG unremarkable serial cardiac enzymes and echo Cardiology consulted, appreciate recs Epigastric abdominal pain Patient recently had a EGD and showed gastritis and pathology was wnl Continue omeprazole Elevated blood pressure Not on meds Nitropaste for now IV labetalol as needed Cardio consulted Anxiety and depression and fibromyalgia Patient says recently Lexapro was changed to Cymbalta Says she is not tolerating Cymbalta Psychiatry consulted -pt started on Zoloft 50mg daily per psych recs Morbid obesity encourage weight loss There is a plan for sleep study Insulin resistance follow HbA1c levels DVT prophylaxis Lovenox Disposition Med/telemetry Full code. Admission and Anticipated Discharge Date Admission Date: November 02, 2024 Subjective Pt was seen in the AM tearful, anxious Asking for echo to be completed, zoloft ordered Review of Systems Review of Systems: All systems reviewed & are unremarkable except as noted in Subjective Physical Exam Physical Exam: General: Alert, oriented. No acute distress Psych: tearful mood and affect Neuro: grossly normal exam HEENT: NC/AT CV: RRR Resp: Breath sounds clear bilaterally, no increased effort of breathing Abdomen: Soft, nontender Extremities: No edema in lower extremities bilaterally. Results & Data Results & Data Vital Signs (Past 12 Hours) Vital Signs Temp Pulse Pulse Resp BP Pulse Ox O2 Del Method 11/03/24 16:03 88 11/03/24 15:51 36.8 C 98 H 18 147/94 H 96 Room Air 11/03/24 11:26 37 C 77 18 129/78 98 Room Air 11/03/24 08:05 36.9 C 83 18 121/85 93 Room Air 11/03/24 07:00 87
[2024-11-03] MEDS: SERTRALINE HCL 50 MG TABLET PO SCH (18:13)
[2024-11-03] MEDS ORDERED: LORazepam 2 MG/1 ML VIAL IV PRN (18:21)
[2024-11-03] MEDS: ADVANCED PROBIOTIC 625 MG CAPSULE PO SCH (19:23)
[2024-11-03] MEDS: clindamycin HCL 300 MG CAP PO SCH (21:20)
[2024-11-04 06:33] LABS: Basophils # (auto) 0.03 K/uL (0.00-0.20); Basophils % (auto) 0.3 %; Eosinophils # (auto) 0.33 K/uL (0.00-0.50); Eosinophils % (auto) 3.6 %; Hematocrit (blood only) 36.9 % (37.0-47.0); Hemoglobin 11.8 g/dl (12.0-16.0); Immature Granulocytes # (auto) 0.04 K/uL (0.01-0.20); Immature Granulocytes % (auto) 0.4 %; Lymphocytes # (auto) 2.29 K/uL (1.20-3.40); Lymphocytes % (auto) 25.1 %; Mean Corpuscular Hemoglobin 29.1 pg (25.0-34.0); Mean Corpuscular Volume 90.9 fL (80.0-100.0); Mean Platelet Volume 9.7 fL (9.4-12.4); Monocytes # (auto) 0.47 K/uL (0.11-0.59); Monocytes % (auto) 5.1 %; Neutrophils # (auto) 5.97 K/uL (1.40-6.50); Neutrophils % (auto) 65.5 %; Platelet Count 340 K/uL (130-400); RDW Coefficient of Variation 13.8 % (11.5-14.5); RDW Standard Deviation 46.3 fL (36.4-46.3); Red Blood Count 4.06 M/uL (4.20-5.40); White Blood Count 9.13 K/ul (4.8-10.8)
[2024-11-04 06:58] LABS: Albumin Globulin Ratio 1.8 (0.9-2); Albumin Level 4.4 gm/dl (3.4-5.0); BUN Creatinine Ratio 16.2 (10-20); Bilirubin,Total 0.4 mg/dl (0.2-1.0); Calcium 9.4 mg/dl (8.6-10.3); Creatinine Clr Calc Pharmacy 127.1 ml/min; Globulin 2.5 gm/dl (2.5-4.0); Magnesium 2.4 mg/dl (1.7-2.4); Phosphorus 4.1 mg/dl (2.5-4.9); Potassium 4.1 mmol/L (3.5-5.1); Total Protein 6.9 gm/dl (6.0-8.3)
[2024-11-04] MEDS: ATENOLOL 25 MG TABLET PO SCH (09:37)
--- NOTE | 2024-11-04 10:44 | Neurology Progress Note ---
Date of Service November 04, 2024 Assessment & Plan (1) Multiple sclerosis: Plan The patient has been diagnosed with multiple sclerosis based on clinical picture, MRI imaging and positive lumbar puncture. She has been initiated on Kesimpta over the last 2 to 3 weeks. From October through October 29 she was at [facility] in [place] being evaluated by neurology, cardiology, GI, and psychiatry. She had MRIs of her brain, cervical spine and thoracic spine that showed a new T-spine lesion (I am uncertain at what level as I do not have the films or report). She was given plasma exchange treatment daily for 3 days. This did not make any difference in her symptoms. She continues to have continuous symptoms including worsening blurry vision (which can wax and wane) whole body tingling and dysesthesias, anterior chest pain, and an unusual fogginess to her thinking which she calls "brain fog" or "brain is detached". She does have known anxiety and depression has been followed by psychiatry. Last week, she was switched from escitalopram to duloxetine 30. She does not feel that this helps. Patient has central chest pain. This dull achy substernal pain is not consistent with pain that might come from a T2 lesion of the cord (which should be sharp and radicular in nature). Certainly, esophageal spasm could cause this type of pain. She has been seen by Dr. Ramirez, an MS specialist at [place] earlier this month and has another appointment with this physician next month. The patient has not done well with steroids (given to her early September). Interestingly, despite all of her symptoms, she has no actual focal neurologic deficits or abnormalities on examination. There are no meningeal signs and no obvious encephalopathy. Given all of her issues which she relates as being chronic and progressive, she is very relaxed, friendly, and appearing normal si tting in bed. Recommendations: 1. There is no point in repeating MRIs (and she has had many MRIs since the beginning of this year). We could get the films and reports from [facility] last week pushed into our system 2. Continue Kesimpta as prescribed. She just took the most recent dose November 03. She is not due again for another month. 3. Follow-up with Dr. Ramirez for any other specific recommendations regarding her MS diagnosis or treatment. She has an appointment apparently November 29. 4. Increase activity as able and consider physical and Occupational Therapy. 5. Psychiatry has been consultedawaiting their report 6. Consider B12, vitamin D (was very low in the past), and TSH/FreeT4 7. Consider a muscle relaxer to see if this will help her chest pain (on the assumption that esophageal spasm may be present. This could be a central acting muscle relaxer such as baclofen (10 mg twice a day) or a more traditional esophageal spasm medication such as verapamil or other calcium channel jairo 8. The patient wants to follow-up with Dr. Braxton as well and can see him as an outpatient (although I do not believe she needs multiple neurologists) Overall, I spent a total of 50 minutes with this case including review of records, review of MRI films, direct evaluation of the patient, report generation, and discussion of the case with Dr. Suarez, including differential diagnosis and treatment options. Admission and Anticipated Discharge Date Admission Date: November 02, 2024 Subjective Patient has complaint of central anterior chest pain and discomfort with swallowing. The patient still feels fatigued in general and is quite sleepy/tired. Blood pressure is 128/89 and she is afebrile. CBC and CHEM profile were unremarkable. The patient had a right axilla lump which was tender and ultrasound showed a 0.9 x 0.6 x 0.4 cm subcutaneous nodule which was a cyst versus a lymph node I reviewed the MRI films of the brain, cervical spine, and thoracic spine done at [facility] October 23. There were no cervical spine lesions noted and a new small active lesion noted at T2 in the thoracic spine. Brain MRI had a few nonspecific spots that look very similar to the previous study here at [facility]. Results & Data Vital Signs (Past 12 Hours) Vital Signs Temp Pulse Pulse Resp BP Pulse Ox O2 Del Method 11/04/24 09:39 78 128/91 11/04/24 07:28 36.8 C 56 L 16 95/56 L 95 Room Air 11/04/24 07:00 64 11/04/24 03:39 36.9 C 67 18 99/62 L 98 Room Air 11/03/24 23:50 37.1 C 68 18 105/68 97 Room Air Exam (Neuro) Physical Exam: The patient is awake, alert, and attentive, with normal speech and communic ation. Mood is normal and affect is appropriate. The patient is fully oriented and has intact long and short term memory. Extraocular eye muscles are intact without nystagmus. Facial strength and symmetry is normal bilaterally. Tongue is midline with normal strength bilaterally. Stance sitting in bed is normal. Coordination of the arms is normal, without tremor or ataxia bilaterally. Motor strength is 5/5 in all major muscle groups of the arms and legs bilaterally, both proximally and distally. PG Care Time/CCT Total # of Minutes Spent Total Time Spent with Patient: Total time spent is greater than 50% in coordination of care (as documented) at patient's floor/unit and/or counseling patient: Coding Level of Care Code 45584 SUB INP/OBS CARE 3/50MIN Diagnoses Multiple sclerosis G35
--- NOTE | 2024-11-04 11:17 | Gastrointestinal Consultation ---
Date of Consultation November 04, 2024 Assessment & Plan (1) Chest pain: (2) Dysphagia: Plan - continue with protonix 40mg bid. - add in famotidine 20mg bid. - can hold off on EGD given that she had one at [facility] last week. - patient may benefit from swallowing study. - will discuss case further with Dr. Robins, further recommendations to follow. 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 Follows with [facility] and [facility]. Had a fairly recent endoscopy for swallowing issues retrosternal chest pain understands this to be mostly normal other than some gastritis. Patient is on PPI had been on Carafate. Continues to have uncontrolled symptoms. Symptoms appear to be chest discomfort substernal and into the left elbow. Aggravated by food. She finds that the food does not go through properly. Seems like it sits in the retrosternal area. She also notes symptoms of regurgitation where she can have food or fluid spontaneously come back to the mouth area she also notes this with recumbency. There has been no upper GI series that she can recall. No reported hiatal hernia. Symptoms not associated with weight loss. Patient has a diagnosis of MS and is getting plasmapheresis Patient is 5 foot 2 with a BMI of 118. At this point symptoms potentially are functional. Esophageal dysmotility or spasm are on the differential. Significant on control regurgitation may also be a problem this would not necessarily be affected by an acids or Carafate. I think to evaluate the symptoms to see if they are esophageal patient will benefit from an upper GI series barium esophagram with barium tablet. Evaluate for esophageal dysmotility potential spasms and severity of regurgitation. History of Present Illness Reason for Consultation: retrosternal chest pain, reported esophageal spasm. Requesting Physician: Kristopher Phan MD. Attending Physician: Kristopher Phan MD History of Present Illness Patient is a 39 year old female with a past medical history significant for insulin resistance, polycystic ovarian syndrome, MTHFR mutation, mild intermittent asthma, seasonal allergic rhinitis, hypertension, prolonged QT, morbid obesity, GERD, fibromyalgia, degenerative disc disease, plaque psoriasis, multiple sclerosis, atypical chest pain, atypical migraine, iron deficiency anemia, anxiety, depression, history of bulimia, general anxiety disorder, chronic fatigue, who presented to the ED on 11/02/24 due to chest pain, epigastric abdominal pain, elevated blood pressure and weakness in the legs. She was recently admitted at [facility] from to 10/29/2024 for blurred vision and lightheadedness and numbness in fingertips and brain fog. Patient was recently diagnosed with MS and was started on Kesimpta. MRI scans were done which are showing active enhancing lesion at T1 spine indicative of active demyelination in addition to demyelinating supratentorial and infratentorial lesions without enhancement. The symptoms were not explained by the findings but patient was treated as an MS flare with plasmapheresis. She tells me she has had several cardiac workups in the past for her pain that have been unremarkable. She reports pain can be worse with moving. Notes state that with her most recent admission at [facility] that she had a normal EKG and was suspected her issues were atypical chest pain with recommendation to follow with cardiology as outpatient. GI had seen her at [facility] and reportedly recommended IV PPI after an EGD was done which showed gastritis and recommended omeprazole twice daily for 14 days then change to once daily after that. She tells me that she has had ongoing issues with swallowing daily and will regurgitate foods/liquids. She thinks this may be related to a spasm. It does not happen with every meal, though will happen daily. She appreciates a globus senstaion. no heartburn. she tells me she has tried PPIs and H2 blockers without benefit. no nsaid use. rest of GI ros are unremarkable. 11/04/24 wbc 9.1, hgb 11.8, hct 36.9, platelets 340. CMP unremarkable. 11/02/24 chest xray Mild pulmonary vascular congestion. Allergies Allergy/AdvReac Type Severity Reaction Status Date / Time amoxicillin Allergy Severe ANAPHYLAXIS Verified 11/02/24 17:56 clavulanic acid Allergy Severe ANAPHYLAXIS Verified 11/02/24 17:56 sulfamethoxazole Allergy Severe tongue Verified 11/02/24 17:56 [From Bactrim] swelling trimethoprim [From Bactrim] Allergy Severe tongue Verified 11/02/24 17:56 swelling doxycycline Allergy Intermediate Rash Verified 11/02/24 17:56 fish derived Allergy Intermediate Hives Verified 11/02/24 17:56 metronidazole Allergy Intermediate rash Verified 11/02/24 17:56 coffee (Coffea arabica) Allergy Unknown per Verified 11/02/24 17:56 allergy testing Penicillins Allergy Unknown per Verified 11/02/24 17:56 allergy testing Home Medications Medication Instructions Recorded Confirmed Type melatonin 5 mg tablet 5 mg PO HS 08/25/24 11/02/24 History fluticasone propionate 50 2 spray intranasal DAILY PRN 09/09/24 11/02/24 History mcg/actuation nasal allergies spray,suspension magnesium oxide 250 mg PO HS 09/09/24 11/02/24 History loratadine 10 mg tablet (Claritin) 10 mg PO HS 09/21/24 11/02/24 History cholecalciferol (vitamin D3) 50 50 mcg PO QAM 10/01/24 11/02/24 History mcg (2,000 unit) capsule ofatumumab 20 mg/0.4 mL 20 mg (0.4 mL) subcut .COMPLEX #3 10/08/24 11/02/24 Rx subcutaneous pen injector mL (Kesimpta Pen) duloxetine 30 mg capsule,delayed 30 mg PO DAILY 11/02/24 11/02/24 History release omeprazole 40 mg capsule,delayed 40 mg PO BID 11/02/24 11/02/24 History release Patient History Medical History Headache Sinus tachycardia Chest pain Adjustment disorder with anxious mood Chest pain Fatigue COVID-19 Change in vision Dizziness History of pre-eclampsia History of bradycardia DVT (deep venous thrombosis) Morbid obesity with BMI of 40.0-44.9, adult Iron deficiency anemia Heart palpitations Surgical History History of esophagogastroduodenoscopy (EGD) History of wisdom tooth extraction History of cardiac cath 06/2015 @ [facility] [place]--d/t chest pain, normal no stents History of cholecystectomy Family History Father Hypertension Mother Diabetes Grandfather (Maternal) Diabetes Coronary heart disease Myocardial infarction Congestive heart failure Colorectal cancer Grandfather (Paternal) Diabetes Coronary heart disease Myocardial infarction, Onset Age: 50 Grandmother (Paternal) Pulmonary emphysema Sick sinus syndrome Diabetes Pacemaker Grandmother (Maternal) Family history of diabetes mellitus Aunt Pulmonary emphysema Family/Other Myocardial infarction, Onset Age: 37 Coronary heart disease Uncle Stroke Other Asthma Lymphoma No family history of adverse response to anesthesia Denies family history of Ovarian cancer Prostate cancer Breast cancer Social History Smoking Status: Former smoker Tobacco Type: Cigarettes and E-cigarettes / Vaping Age Started Using Tobacco: 26; Age Quit Using Tobacco: 28; Second Hand Exposure: No; Do You Dip or Chew Tobacco: No; Hx Alcohol Use: Yes Alcohol type: beer Hx Substance Use: No Preferred Language: Malian Communication Ability: Effective Communication Tools: Other Visual Impairment: No Limitations Hearing Ability: Normal Foot Specialist Required: No Beliefs That Will Affect Care: None marital status: Current Living Situation: Family Current Living Situation Comment: lives at home with significant other and daughter current occupational status: employed 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 How many Children do You have: 1 Other Information That Helps Us Care for You: No Feels Safe at Home: Yes Safety Concerns: Feels Safe At This Time Childhood Exposure to Second-Hand Smoke: Yes Diet: regular caffeine: No during the past year weight has: remained stable Dental Care, Regularly: Yes Physical Activity Frequency: 5-6 Times per Week Seatbelt Use: never Sunscreen Use: Yes Gender Identity: Female Assistive Devices: None Review of Systems Review of Systems: All systems reviewed & are unremarkable except as noted in HPI & below Physical Exam Constitutional: WD/WN, vitals as above Respiratory: normal respiratory effort, lungs clear to auscultation Cardiovascular: Rate/Rhythm: regular rate and regular rhythm Gastrointestinal (Abdomen): normal bowel sounds, soft, nontender, no hepatosplenomegaly Psychiatric: Orientation: alert and oriented x 3 Affect: euthymic affect Results & Data Vital Signs (Past 12 Hours) Vital Signs Temp Pulse Pulse Resp BP Pulse Ox O2 Del Method 11/04/24 09:39 78 128/91 11/04/24 07:28 98.2 F 56 L 16 95/56 L 95 Room Air 11/04/24 07:00 64 11/04/24 03:39 98.4 F 67 18 99/62 L 98 Room Air 11/03/24 23:50 98.8 F 68 18 105/68 97 Room Air Coding Level of Care Code 60684 IN/OBS CONSULT LVL 4,60M Diagnoses Chest pain R07.9 Dysphagia R13.10
[2024-11-04] MEDS: FAMOTIDINE 20MG IV PUSH 20 MG/5 ML SYR IV SCH (12:41)
--- NOTE | 2024-11-04 12:54 | Hospitalist Progress Note ---
Date of Service November 04, 2024 Assessment & Plan (1) Multiple sclerosis: Plan: 39-year-old female with past medical history significant for insulin resistance, polycystic ovarian syndrome, MTHFR mutation, mild intermittent asthma, seasonal allergic rhinitis, hypertension, prolonged QT, morbid obesity, GERD, fibromyalgia, degenerative disc disease, plaque psoriasis, multiple sclerosis, atypical chest pain, atypical migraine, iron deficiency anemia, anxiety, dep ression, history of bulimia, general anxiety disorder, chronic fatigue, comes because of chest pain, epigastric abdominal pain, elevated blood pressure and weakness in the legs. Hx of Multiple Sclerosis Patient presents to the hospital with multiple symptoms including chest pain, abdominal pain, generalized weakness and fatigue. No neurological deficit on examination Recently diagnosed with multiple sclerosis in September,; had received methylprednisolone. Seen by [facility] MS specialist during recently hospitalization. Evaluated by neurology; no reason to repeat MRI. Continue Kesimpta as prescribed. Epigastric abdominal pain Patient recently had a EGD and showed gastritis and pathology was wnl Continue omeprazole She reports recurrent retrosternal chest pain, difficulty swallowing; reports that she has concern for esophageal spasm. GI consulted; Pepcid added Elevated blood pressure Evaluated by cardiology Started on atenolol 12.5 mg twice daily for subjective palpitation and heart rate reduction Anxiety and depression and fibromyalgia Patient says recently Lexapro was changed to Cymbalta Says she is not tolerating Cymbalta Psychiatry consulted -pt started on Zoloft 50mg daily per psych recs Morbid obesity encourage weight loss There is a plan for sleep study as outpatient DVT prophylaxis Lovenox Disposition Med/telemetry Full code. Admission and Anticipated Discharge Date Admission Date: November 02, 2024 Subjective Patient seen and examined at bedside. She reports retrosternal chest pain; more so on exertion. Telemetry does not show any acute finding No significant events overnight Review of Systems Review of Systems: All systems reviewed & are unremarkable except as noted in Subjective Physical Exam Physical Exam: Constitutional: WD/WN, vitals as above, NAD, sitting up in bed, pleasant, conversing easily Respiratory: normal respiratory effort, lungs clear to auscultation, no wheeze, rales, rhonchi. Normal insp/exp effort, no accessory muscle use Cardiovascular: RRR, no murmur, no edema Vessels: no JVD or carotid bruit Chest: normal inspection of chest Abdomen: normal bowel sounds, soft, nontender, no hepatosplenomegaly Musculoskeletal: no cyanosis or clubbing, extremities motor strength 5/5 Skin: no rashes, warm and dry normal turgor Neurologic: PERRL, EOMI, accommodation nl, no face palsy, no dysarthria CN's II- XI intact bilaterally and moves all extremities Psychiatric: A+Ox3, euthymic affect Results & Data Results & Data Vital Signs (Past 12 Hours) Vital Signs Temp Pulse Pulse Resp BP Pulse Ox O2 Del Method 11/04/24 11:15 37 C 77 16 126/84 96 Room Air 11/04/24 09:39 78 128/91 11/04/24 07:28 36.8 C 56 L 16 95/56 L 95 Room Air 11/04/24 07:00 64 11/04/24 03:39 36.9 C 67 18 99/62 L 98 Room Air
--- NOTE | 2024-11-04 13:29 | Cardiology Progress Note ---
Date of Service November 04, 2024 Assessment & Plan (1) Atypical chest pain: (2) Multiple sclerosis: Plan Assessment: Patient is a 39 yo female with extensive medical history including atypical chest pain, hypertension, obstructive sleep apnea, morbid obesity, polycystic ovarian syndrome, multiple sclerosis, GERD, fibromyalgia, atypical migraine, generalized anxiety disorder, depression, and degenerative disc disease. She presented to the ER at [facility] on 11/02/24 with abdominal pain, chest pain, and elevated blood pressure. Review of records shows a long history of chest pain, palpitations, and sinus tachycardia. Patient was recently admitted at [facility] (10/22 - 10/29/24) with visual changes, brain fog, and numbness in fingertips in bilateral UE. Cardiology, GI, and psychiatry were consulted; records state the EKG was normal, EGD showed gastritis; Patient was treated for MS flare. Patient was discharged from [facility] on 10/29/24 and scheduled for outpatient follow-up with a multiple sclerosis specialist, GI f/u, psychiatry f/u, cardiology f/u, and sleep medicine evaluation for insomnia and HUGO. Cardiology services requested for assessment and recommendations. Plan: 1. Atypical chest pain -Patient with longstanding history of atypical chest pain; work up has been unrevealing so far, most recently during her hospitalization at [facility] 10/22-10/29/24, where she was treated for a multiple sclerosis flare. -Evaluations show no signs of ischemia at this time, including recent EKG and lab work. -Telemetry reviewed: NSR HR 80s. BP 126/84, P 81 -Continue Atenonol 12.5 mg BID for subjective palpitations and heart rate reduction. 2. Multiple sclerosis -Patient follows with Neurology. -On Kesimpta -Plasmapheresis on 10/25/24 -Recommend continued neurology f/u. Case discussed with Dr. Landry. Further recommendations pending his evaluation and assessment. I spent a total of 30 minutes on the date of service in preparation, delivery, and documentation of the care provided to this patient, excluding any time spent in the performance of separately billed services. Garry Lozano, PAJaleesaC Department of Cardiology, [facility] This chart was completed in part utilizing Speech Voice Recognition Software. Grammatical errors, random word insertions, pronoun errors, and incomplete sentences are an occasional consequence of this system due to software limitations, ambient noise, and hardware issues. Any formal questions or concerns about the content, text, or information contained within the body of this dictation should be directly addressed to the provider for clarification. Admission and Anticipated Discharge Date Admission Date: November 02, 2024 Supervising Physician Co-Signing Physician Notes Attending attestation: Case reviewed with the advanced practitioner. I have personally performed a history and physical examination on the patient. I have reviewed the advanced practitioner's documentation on the date of service referenced in note, and I agree with, and take responsibility for the plan of care. Subjective: Patient describes ongoing chest discomfort, that does not sound characteristic of angina. Data: Telemetry: Sinus rhythm in the 80s, no significant bradycardia. Impression/ Plan: Atypical chest pain, nonischemic stress echocardiogram August,, performed by the undersigned. Chest discomfort was present and at baseline before walking on the treadmill at the time of that study was unchanged with exercise with no associated ischemic EKG changes or stress-induced wall motion abnormalities Order placed for outpatient cardiac CT to be performed at [facility] on the dual source machine and effort to increase chances of a diagnostic study with limited artifact. Rationale for atenolol was for symptomatic relief of subjective palpitations and for heart rate control in advance of cardiac CT. I spent a total of 20 minutes coordinating, documenting, and providing care for this patient excluding time spent in the performance of separately billed services or time spent by another provider. Juan Pablo Landry, Subjective Patient seen and examined today for follow-up. Patient resting comfortably in bed. Continues to complain of SOB and chest discomfort that she describes as aching and a 1/10 in severity. She states the symptoms are brought on by walking and eating and resolve spontaneously without intervention within 5-10 minutes. States she is scheduled for a swallow study tomorrow. Denies palpitations, chest pain, dizziness, or any other issues. Labs, diagnostics, vitals, telemetry, and documentation reviewed. Telemetry shows NSR, HR80s. No acute events overnight. Review of Systems Review of Systems: All systems reviewed & are unremarkable except as noted in HPI & below Physical Exam Constitutional: + morbidly obese; not in distress Eyes: PERRL, conjunctivae normal, anicteric sclerae ENMT: external ear and nose normal, oropharynx normal Respiratory: normal respiratory effort, lungs clear to auscultation Cardiovascular: Extremities: no calf tenderness and no edema Skin: no rashes, warm and dry Psychiatric: Orientation: oriented x 3 Mood: + depressed mood and + anxious mood Results & Data Vital Signs (Past 12 Hours) Vital Signs Temp Pulse Pulse Resp BP Pulse Ox O2 Del Method 11/04/24 11:15 37 C 77 16 126/84 96 Room Air 11/04/24 09:39 78 128/91 11/04/24 07:28 36.8 C 56 L 16 95/56 L 95 Room Air 11/04/24 07:00 64 11/04/24 03:39 36.9 C 67 18 99/62 L 98 Room Air Laboratory Results Cardiac Enzymes 11/03/24 11/04/24 Range/Units 17:18 05:26 AST 15 (13-39) U/L Troponin I High Sens < 2.3 (0-14) pg/ml CBC 11/04/24 Range/Units 05:26 WBC 9.13 (4.8-10.8) K/ul RBC 4.06 L (4.20-5.40) M/uL Hgb 11.8 L (12.0-16.0) g/dl Hct 36.9 L (37.0-47.0) % Plt Count 340 (130-400) K/uL Neut # (Auto) 5.97 (1.40-6.50) K/uL Lymph # (Auto) 2.29 (1.20-3.40) K/uL [place] # (Auto) 0.47 (0.11-0.59) K/uL Eos # (Auto) 0.33 (0.00-0.50) K/uL Baso # (Auto) 0.03 (0.00-0.20) K/uL Comprehensive Metabolic Panel 11/04/24 Range/Units 05:26 Sodium 140 (136-145) mmol/L Potassium 4.1 (3.5-5.1) mmol/L Chloride 106 (98-107) mmol/L Carbon Dioxide 27 (21-32) mmol/L BUN 12 (6-23) mg/dl Creatinine 0.74 (0.6-1.2) mg/dl Glucose 104 H (70-99(Fasting)) mg/dl Calcium 9.4 (8.6-10.3) mg/dl AST 15 (13-39) U/L ALT 21 (7-52) U/L Alkaline Phosphatase 84 (34-104) U/L Total Protein 6.9 (6.0-8.3) gm/dl Albumin 4.4 (3.4-5.0) gm/dl Intake and Output 11/03/24 11/04/24 11/04/24 22:59 06:59 14:59 Intake Total 300 / 600 300 / 600 Balance 300 / 599 300 / 599 Intake: Oral 300 / 600 300 / 600 Other: Weight 118.2 kg Weight Measurement Method Built in [facility] Diagnostic Findings Right axillary ultrasound: 0.9 x 0.6 x 0.4 cm right axillary subcutaneous hypoechoic nodule which corresponds to the palpable lump. The sonographic appearance is nonspecific. This may represent a lymph node although is more superficial than expected. A complex cystic lesion or small abscess are also within the differential. A soft tissue mass cannot be completely excluded and therefore clinical follow-up to ensure stability/resolution is recommended. If progressive enlargement, repeat ultrasound is recommended. Medications Administered Current Inpatient Medications Acetaminophen (Acetaminophen 325 Mg Tab) 650 mg PO Q4H PRN PRN Reason: Pain or Fever Stop: 12/02/24 20:31 Atenolol (Atenolol 25 Mg Tablet) 12.5 mg PO BID ANNA Stop: 12/04/24 08:59 Last Admin: 11/04/24 09:37 Dose: 12.5 mg Enoxaparin Sodium (Enoxaparin Inj 40 Mg/0.4 Ml Syr) 40 mg SQ Q12H ANNA Stop: 12/02/24 20:59 Last Admin: 11/04/24 07:59 Dose: Not Given Fluticasone Propionate (Fluticasone Propionate Na Spr 16 Gm Btl) 2 sprays NA DAILY PRN PRN Reason: allergies Stop: 12/02/24 20:31 Famotidine (Pepcid 20mg Iv Push) 20 mg in 5 mls @ 2.5 mls/min IV Q12H ANNA Stop: 12/04/24 11:29 Last Admin: 11/04/24 12:41 Dose: 2.5 mls/min Labetalol HCl (Labetalol Hcl Iv 5 Mg/Ml 20ml) 10 mg IV Q4H PRN PRN Reason: Hypertension Stop: 12/02/24 20:31 Lactobacillus Acidophilus (Advanced Probiotic 625 Mg Capsule) 1,250 mg PO DAILY ANNA Stop: 12/03/24 18:29 Last Admin: 11/04/24 09:36 Dose: Not Given Loratadine (Loratadine 10 Mg Tab) 10 mg PO HS ANNA Stop: 12/02/24 20:59 Last Admin: 11/03/24 19:59 Dose: 10 mg Lorazepam (Lorazepam 2 Mg/1 Ml Vial) 0.5 mg IV Q8H PRN PRN Reason: Anxiety/Agitation Stop: 12/03/24 18:20 Magnesium Oxide (Magnesium Oxide 400 Mg Tab) 400 mg PO HS ANNA Stop: 12/02/24 20:59 Last Admin: 11/03/24 19:59 Dose: 400 mg Melatonin (Melatonin 3 Mg Tab) 4.5 mg PO HS ANNA Stop: 12/02/24 20:59 Last Admin: 11/03/24 19:59 Dose: 4.5 mg Nitroglycerin (Nitroglycerin Sl 0.4 Mg/Tab Tab) 0.4 mg SL Q5M PRN PRN Reason: Chest Pain Stop: 12/02/24 20:31 Nitroglycerin (Nitroglycerin 2% Ointment 30gm Tube) 0.5 inch EXT Q6H ANNA Stop: 12/02/24 20:59 Last Admin: 11/02/24 21:13 Dose: Not Given Pantoprazole Sodium (Pantoprazole 40 Mg Tab) 40 mg PO BID ANNA Stop: 12/02/24 20:59 Last Admin: 11/04/24 09:37 Dose: 40 mg Polyethylene Glycol (Polyethylene (Miralax) 17 Gm Pack) 17 gm PO DAILY PRN PRN Reason: Constipation Stop: 12/02/24 20:31 Sertraline HCl (Sertraline Hcl 50 Mg Tablet) 50 mg PO QAM [facility] Stop: 12/03/24 16:14 Last Admin: 11/04/24 09:37 Dose: 50 mg Vitamin D (Cholecalciferol 25 Mcg (1000 Units) Tab) 50 mcg PO QAM ANNA Stop: 12/03/24 08:59 Last Admin: 11/04/24 09:37 Dose: 50 mcg
--- NOTE | 2024-11-05 10:47 | Gastroenterology Progress Note ---
Date of Service November 05, 2024 Assessment & Plan (1) Chest pain: (2) Dysphagia: Plan - continue with protonix 40mg bid. - add in famotidine 20mg bid. - await upcoming UGI/BS findings. Admission and Anticipated Discharge Date Admission Date: November 02, 2024 Subjective Patient had ongoing chest discomfort last evening and throughout the night. she has been NPO. planned for UGI/barium swallow later today. no new GI concerns. Review of Systems Review of Systems: All systems reviewed & are unremarkable except as noted in HPI & below Physical Exam Constitutional: WD/WN, vitals as above Respiratory: normal respiratory effort, lungs clear to auscultation Cardiovascular: Rate/Rhythm: regular rate and regular rhythm Gastrointestinal (Abdomen): normal bowel sounds, soft, nontender, no hepatosplenomegaly Psychiatric: Orientation: alert and oriented x 3 Affect: euthymic affect Results & Data Results & Data Vital Signs (Past 12 Hours) Vital Signs Temp Pulse Pulse Resp BP Pulse Ox O2 Del Method 11/05/24 08:33 Room Air 11/05/24 08:00 97.5 F L 57 L 18 95/49 L 96 Room Air 11/05/24 07:00 65 11/05/24 03:29 98.2 F 68 18 125/81 92 Room Air 11/04/24 23:57 98.2 F 75 20 105/71 96 Room Air Coding Level of Care Code 68802 SUB INP/OBS CARE 07/11MIN Diagnoses Chest pain R07.9 Dysphagia R13.10
--- NOTE | 2024-11-05 11:14 | Neurology Progress Note ---
Date of Service November 05, 2024 Assessment & Plan (1) Multiple sclerosis: Plan The patient has been diagnosed with multiple sclerosis based on clinical picture, MRI imaging and positive lumbar puncture. She has been initiated on Kesimpta over the last 2 to 3 weeks. From October through October 29 she was at [facility] in [place] being evaluated by neurology, cardiology, GI, and psychiatry. She had MRIs of her brain, cervical spine and thoracic spine that showed a new T-spine lesion (I am uncertain at what level as I do not have the films or report). She was given plasma exchange treatment daily for 3 days. This did not make any difference in her symptoms. She continues to have continuous symptoms including worsening blurry vision (which can wax and wane) whole body tingling and dysesthesias, anterior chest pain, and an unusual fogginess to her thinking which she calls "brain fog" or "brain is detached". She does have known anxiety and depression has been followed by psychiatry. Last week, she was switched from escitalopram to duloxetine 30. She does not feel that this helps. She has been put back on Zoloft 50 mg and duloxetine has been discontinued. Patient has central chest pain. This dull achy substernal pain is not consistent with pain that might come from a T2 lesion of the cord (which should be sharp and radicular in nature). Certainly, esophageal spasm could cause this type of pain. She has been seen by Dr. Ramirez, an MS specialist at [place] earlier this month and has another appointment with this physician next month. The patient has not done well with steroids (given to her early September) or plasma exchange (last week).. Interestingly, despite all of her symptoms, she has no actual focal neurologic deficits or abnormalities on examination. There are no meningeal signs and no obvious encephalopathy. Given all of her issues which she relates as being chronic and progressive, she is very relaxed, friendly, and appearing normal sitting in bed. Today, however, she is anxious probably because she realizes she may be going home and does not have all the answers and improvement she wants. Recommendations: 1. There is no point in repeating MRIs (and she has had many MRIs since the beginning of this year). We could get the films and reports from [facility] last week pushed into our system 2. Continue Kesimpta as prescribed. She just took the most recent dose November 03. She is not due again for another month. 3. Follow-up with Dr. Ramirez for any other specific recommendations regarding her MS diagnosis or treatment. She has an appointment apparently November 29. 4. Increase activity as able and consider physical and Occupational Therapy. 5. Psychiatry has been consultedawaiting their report 6. Consider B12, vitamin D (was very low in the past), and TSH/FreeT4 7. Consider a muscle relaxer to see if this will help her chest pain (on the assumption that esophageal spasm may be present. This could be a central acting muscle relaxer such as baclofen (10 mg twice a day) or a more traditional esophageal spasm medication such as verapamil or other calcium channel jairo 8. The patient wants to follow-up with Dr. Braxton as well and can see him as an outpatient (although I do not believe she needs multiple neurologists) Overall, I spent a total of 50 minutes with this case including review of records, direct evaluation of the patient, report generation, and discussion of the case with the patient at bedside, psychiatry liaison Nita, Dr. Phan, including differential diagnosis and treatment options. Admission and Anticipated Discharge Date Admission Date: November 02, 2024 Subjective The patient is tearful this morning. She is being told by her hospitalist that there is not much we can do in the hospital anymore and going home seems to be the best option. I had a conversation with psychiatry nurse liajann Moya regarding the patient this morning. She was attempted to be seen but there is no significant information. She is going to be contacting the attending. The patient wants to know if the PET scan would help add information to her case. She is worried about perfusion and circulation. I informed her that she had MR angiography and MR Venography (of the head and neck) in the recent past, all of which were normal with no vascular anomalies or stenoses. Blood pressure is 95/49 with a pulse in the 50s. She is afebrile. Nursing reports that she is up walking better. Patient herself still has "brain fog" and diffuse dysesthesias. Results & Data Vital Signs (Past 12 Hours) Vital Signs Temp Pulse Pulse Resp BP Pulse Ox O2 Del Method 11/05/24 08:33 Room Air 11/05/24 08:00 36.4 C L 57 L 18 95/49 L 96 Room Air 11/05/24 07:00 65 11/05/24 03:29 36.8 C 68 18 125/81 92 Room Air 11/04/24 23:57 36.8 C 75 20 105/71 96 Room Air Exam (Neuro) Physical Exam: She is awake and alert. She is tearful today particularly she thinks about the fact that she still has issues and may be going home soon. Extraocular muscles are intact without nystagmus. There is no facial droop. Tongue is midline. Stance sitting up in bed is normal. She has no abnormal involuntary movements. Limb strength is symmetrical. PG Care Time/CCT Total # of Minutes Spent Total Time Spent with Patient: Total time spent is greater than 50% in coordination of care (as documented) at patient's floor/unit and/or counseling patient: Coding Level of Care Code 46262 SUB INP/OBS CARE 3/50MIN Diagnoses Multiple sclerosis G35
--- NOTE | 2024-11-05 12:23 | Cardiology Progress Note ---
Date of Service November 05, 2024 Assessment & Plan (1) Atypical chest pain: (2) Multiple sclerosis: Plan -Continue atenolol 12.5 mg twice daily -Proceed with plan for outpatient cardiac CT Juan Pablo Landry, DO Cardiology This chart was completed in part utilizing Speech Voice Recognition Software. Grammatical errors, random word insertions, pronoun errors, and incomplete sentences are an occasional consequence of this system due to software limitations, ambient noise, and hardware issues. Any formal questions or concerns about the content, text, or information contained within the body of this dictation should be directly addressed to the provider for clarification. Admission and Anticipated Discharge Date Admission Date: November 02, 2024 Subjective Patient without acute symptoms. Telemetry reveals sinus rhythm in the 60s. Physical Exam Physical Exam: General: no acute distress and stated age Chest: normal shape and normal respiratory effort Lungs: clear to auscultation and percussion Cardiac Exam: - regular heart sounds, no murmurs, rubs, or gallops, no jugular venous distention Extremities: no edema and no cyanosis Neuro:awake, conversant, follows commands, no focal motor deficits Results & Data Vital Signs (Past 12 Hours) Vital Signs Temp Pulse Pulse Resp BP Pulse Ox O2 Del Method 11/05/24 11:06 36.7 C 73 20 124/103 H 96 Room Air 11/05/24 08:33 Room Air 11/05/24 08:00 36.4 C L 57 L 18 95/49 L 96 Room Air 11/05/24 07:00 65 11/05/24 03:29 36.8 C 68 18 125/81 92 Room Air
--- NOTE | 2024-11-05 13:35 | Fluoroscopy Report ---
FL upper GI and ba swallow CLINICAL HISTORY: assess swallowing, evaluate for spasm, dysmotility COMPARISON STUDY: None Fluoroscopy time: 53 seconds. FINDINGS: There is no esophageal stricture or hiatal hernia. No significant esophageal spasm. There i s mild gastroesophageal reflux. Stomach is unremarkable. Duodenum demonstrates normal distensibility. Contrast progresses normally to the jejunum. IMPRESSION: Mild gastroesophageal reflux. Otherwise unremarkable exam. ACT 112: Negative or not required by law. Electronically signed by: Faisal Sierra M.D. 11/05/2024 1:33 PM
--- NOTE | 2024-11-05 15:10 | Hospitalist Progress Note ---
Date of Service November 05, 2024 Assessment & Plan (1) Multiple sclerosis: Plan: 39-year-old female with past medical history significant for insulin resistance, polycystic ovarian syndrome, MTHFR mutation, mild intermittent asthma, seasonal allergic rhinitis, hypertension, prolonged QT, morbid obesity, GERD, fibromyalgia, degenerative disc disease, plaque psoriasis, multiple sclerosis, atypical chest pain, atypical migraine, iron deficiency anemia, anxiety, dep ression, history of bulimia, general anxiety disorder, chronic fatigue, comes because of chest pain, epigastric abdominal pain, elevated blood pressure and weakness in the legs. Hx of Multiple Sclerosis Patient presents to the hospital with multiple symptoms including chest pain, abdominal pain, generalized weakness and fatigue. No neurological deficit on examination Recently diagnosed with multiple sclerosis in September,; had received methylprednisolone. Seen by [facility] MS specialist during recently hospitalization. Evaluated by neurology; no reason to repeat MRI. Continue Kesimpta as prescribed. Continue Vitamin B12 supplement Epigastric abdominal pain Patient recently had a EGD and showed gastritis and pathology was wnl Continue omeprazole She reports recurrent retrosternal chest pain, difficulty swallowing; reports that she has concern for esophageal spasm. GI was consulted; Pepcid added. Underwent barium swallow and follow-through; found to have reflux. No spasm Elevated blood pressure Evaluated by cardiology Started on atenolol 12.5 mg twice daily for subjective palpitation and heart rate reduction Anxiety and depression and fibromyalgia Patient says recently Lexapro was changed to Cymbalta Says she is not tolerating Cymbalta Psychiatry consulted -pt started on Zoloft 50mg daily per psych recs Morbid obesity encourage weight loss There is a plan for sleep study as outpatient DVT prophylaxis Lovenox Disposition Med/telemetry Full code. Patient reported that she wanted a second opinion regarding her treatment plan. Discussed with Dr. Cummings who graciously accepted the patient. Time spent evaluating patient, direct bedside care, chart review, placing orders, interpretation of diagnostic studies, discussion with consultants, patient, and family members, as well as other required patient management activ ities is 60 minutes Please note the above document was generated using voice recognition software. It may contain grammatical, syntax or spelling errors. Any formal questions or concerns about the content, text or information contained within the body of this dictation should be directly addressed to the provider for clarification Admission and Anticipated Discharge Date Admission Date: November 02, 2024 Subjective Patient seen and examined at bedside. She reports that she is sleeping more than usual. Reports that she does not feel refreshed. No new neurological symptoms. Vital signs stable. No alarms on telemetry Review of Systems Review of Systems: All systems reviewed & are unremarkable except as noted in Subjective Physical Exam Physical Exam: Constitutional: anxious; alert oriented X 3 Respiratory: normal respiratory effort, lungs clear to auscultation, no wheeze, rales, rhonchi. Normal insp/exp effort, no accessory muscle use Cardiovascular: RRR, no murmur, no edema Vessels: no JVD or carotid bruit Chest: normal inspection of chest Abdomen: normal bowel sounds, soft, nontender, no hepatosplenomegaly Musculoskeletal: no cyanosis or clubbing, extremities motor strength 5/5 Skin: no rashes, warm and dry normal turgor Neurologic: PERRL, EOMI, accommodation nl, no face palsy, no dysarthria CN's II- XI intact bilaterally and moves all extremities Psychiatric: A+Ox3, euthymic affect Results & Data Results & Data Vital Signs (Past 12 Hours) Vital Signs Temp Pulse Pulse Resp BP Pulse Ox O2 Del Method 11/05/24 13:13 71 11/05/24 11:06 36.7 C 73 20 124/103 H 96 Room Air 11/05/24 08:33 Room Air 11/05/24 08:00 36.4 C L 57 L 18 95/49 L 96 Room Air 11/05/24 07:00 65 11/05/24 03:29 36.8 C 68 18 125/81 92 Room Air
--- NOTE | 2024-11-05 16:06 | Communication Note ---
New Provider Note: Asked to see patient on request of prior attending provider, Dr. Phan, at request of patient for second opinion. In short, 39 yo female with extensive p mhx including imaging/LP proven relapse remitting multiple sclerosis (on Kesimpta, known T2 active lesion), psoriatic arthritis and ankylosing spondylitis (HLA B27 positive, diagnoses per rheumatology 08/2024), HUGO (sleep study in 2021, did not tolerate CPAP, likely worse now), mild asthma, hx of mild gastritis, HANS, GERD, small fiber neuropathy (per 2021 workup), proposed diagnoses of fibromyalgia/POTS syndrome (no formal tilt table testing, fibromyalgia suggested per 2018 documentation) hx of bullemia nervosa (remote past), adjustment disorder (per psychiatry 10/2024) who presented for chest pain, abdominal pain, fatigue, and dizziness. Neurology consulted this admission in regards to fatigue and MS. GI consulted for concern for swallowing issues. This provider asked for second opinion by patient. Patient seen and examined at bedside. Patient states she has had fatigue since around April 2024, with worsening weakness starting at that time. However, she also states that she has had a worsening decline over the past few weeks. She has chest pain that radiates to shoulders and back, discussed case with cardiology personally today, cardiac CT ordered for later date. However, echo very reassuring from Februrary. She also has had some vision changes and pulsing in sides of eyes. Assessment/Plan: #Relapse Remitting Multiple Sclerosis #Chronic Fatigue Syndrome #Autonomic Dysfunction -meets 2023 [facility] criteria for MS, LP and imaging with T2 lesion -did not have significant improvement with steroids or plasmapheresis in regards to fatigue/weakness suggesting alternative diagnosis -has hx of dysautonomia, with swings in blood pressure/heart rate -patient meets clinical diagnostic criteria for chronic fatigue syndrome (per [facility], 6 months of reduced activity, newer onset severe fatigue not relieved with rest, post exertional malaise, and unrefreshing sleep, present for over 50% of days), there is overlap with MS symptoms as well but given no improvement in symptoms with treatment for MS diagnosis fits -concern for peripheral autonomic component with central component as well, such as autonomic dysreflexia, POTS -less likely conditions would include scleroderma cause dysreflexia (does have concern for esophageal spasms but no other scleroderma syndromes), less likely multiple system atrophy Plan: -suggest PM&R consultation and functional medication consults outpatient -outpatient PT/OT for graded exercise program for chronic fatigue syndrome -check B12, folic acid, thiamine -start B12, vitamin D supplementation -can consider glutathione supplementation for chronic fatigue syndrome, discuss with MS doctor outpatient -suggest tilt table testing as well as clinical testing for fibromyalgia outpatient -will check CTA head and neck for patient reassurance -continue atenolol -stay hydrated #Esophageal Spasm #GERD -extensive testing by GI and speech -possible esophageal spasm Plan: -start doxepin for esophageal spasm and chest pain #R/o Severe Sleep Apnea #Mild Sleep Apnea -patient has known mild sleep apnea, with significant apneas noted on testing in -did not tolerate CPAP at that time -has had weight gain since then Plan: -f/u with sleep medicine -would benefit from weight management referral for weight loss to assist with sleep apnea -will likely benefit from CPAP #Psoriatic Arthritis #Ankylosing Spondylitis -likely contributor to fatigue as well Plan: -f/u with rheumatology outpatient -will benefit from treatment of these conditions with concurrent treatment from MS (Heena) Patient seen an Date of Service: November 05, 2024
[2024-11-05] MEDS: OPTIRAY 320 125ml IV ONE (18:01)
--- NOTE | 2024-11-05 18:23 | CT Scan Report ---
Clinical History: Brain fog. Technique: Axial computed tomography images were obtained of the brain from the vertex to the skull base without intravenous contrast. Findings: There is no sign of intracranial hemorrhage. There is normal beltran-white matter differentiation with no sign of acute or old infarction. No midline shift or other form of herniation is identified. There is no hydrocephalus. No obvious mass lesion is seen on this noncontrast examination. The visualized portions of the orbits and paranasal sinuses appear unremarkable. The mastoid air cells appear clear Impression: Unremarkable noncontrast CT of the brain Electronically signed by Audie Diehl 11-05-2024 6:20 PM
--- NOTE | 2024-11-05 18:23 | CT Scan Report ---
Clinical History: Brain fog. Technique: Axial computed tomography images were obtained of the brain after the administration of intravenous contrast according to the CT angiogram protocol Findings: No definite stenosis or aneurysm is seen of the anterior, middle, or posterior cerebral artery circulations. The visualized vertebral arteries and the basilar artery appear unremarkable Impression: Unremarkable CTA of the brain Electronically signed by Audie Diehl 11-05-2024 6:22 PM
--- NOTE | 2024-11-05 18:24 | CT Scan Report ---
Clinical History: Brain fog. Technique: Axial computed tomography images were obtained of the neck after the administration of intravenous contrast according to the CT angiogram protocol Findings: No stenosis is seen of the common carotid arteries bilaterally. The carotid bulbs appear normal. The remainder of the internal carotid arteries appear patent bilaterally. No stenosis of the external carotid arteries is seen The vertebral arteries are patent bilaterally with no significant stenosis seen. The visualized thoracic aorta appears unremarkable There are multiple small lymph nodes within the neck without overt adenopathy Impression: Unremarkable CTA of the neck Electronically signed by Audie Diehl 11-05-2024 6:24 PM
[2024-11-05] MEDS: DOXEPIN HCL 10 MG CAPSULE PO SCH (20:53)
[2024-11-06 06:57] LABS: Hemoglobin 11.3 g/dl (12.0-16.0); Mean Corpuscular Hgb Conc 32.3 g/dL (32.0-36.0); Mean Platelet Volume 9.7 fL (9.4-12.4); Platelet Count 313 K/uL (130-400); RDW Coefficient of Variation 13.7 % (11.5-14.5); RDW Standard Deviation 45.2 fL (36.4-46.3); Red Blood Count 3.89 M/uL (4.20-5.40); White Blood Count 9.98 K/ul (4.8-10.8)
[2024-11-06 07:17] LABS: BUN Creatinine Ratio 16.7 (10-20); Calcium 9.2 mg/dl (8.6-10.3); Creatinine Clr Calc Pharmacy 125.1 ml/min; Potassium 3.9 mmol/L (3.5-5.1)
[2024-11-06 07:28] LABS: Cortisol AM 2.56 mcg/dl (6.2-22.6)
[2024-11-06 07:44] LABS: Folate (Folic Acid),Ser orPlas 11.05 ng/ml (>5.38)
[2024-11-06] MEDS: CYANOCOBALAMIN (B-12) 500 MCG TABLET PO SCH (08:12)
[2024-11-06 08:18] VITALS: RESP 18
--- NOTE | 2024-11-06 10:34 | XRay Report ---
XR chest 1V portable CLINICAL HISTORY: patient reassurance COMPARISON STUDY: 11/02/2024 FINDINGS: Heart size and pulmonary vasculature are normal. No effusion, consolidation, or pneumothora x. IMPRESSION: No acute findings. ACT 112: Negative or not required by law. Electronically signed by: Faisal Sierra M.D. 11/06/2024 10:33 AM
[2024-11-06] MEDS: COSYNTROPIN 250 MCG in SYRINGE 4 ML IV ONE (10:47)
[2024-11-06] MEDS: HYDROCORTISONE SOD 5 MG in SYRINGE 0 ML IV ONE (10:48)
[2024-11-06] MEDS ORDERED: HYOSCYAMINE SULFATE 0.125 MG TAB SL PRN ×2 (10:52→13:25)
--- NOTE | 2024-11-06 10:52 | Gastroenterology Progress Note ---
Date of Service November 06, 2024 Assessment & Plan (1) Chest pain: Plan - Can assess how she does with starting doxepin for her symptoms. Though this may take a few weeks to take effect. - can trial levsin sublingually in the meantime. - would consider an EMS as an outpatient. Admission and Anticipated Discharge Date Admission Date: November 02, 2024 Supervising Physician Co-Signing Physician Notes Upper GI series only showed mild reflux. Patient has been started on doxepin and I would agree with that therapy. I have advised the patient may take 2 to 3 weeks for this to be of benefit. She should persist until that time. We can give her some Levsin for spasms. Recommend she only use this 2-3 times per day. If there is dry mouth blurred vision she should minimize or avoid. If symptoms persist after 2 to 3 weeks she can schedule outpatient appointment for further investigations evaluations including potential esophageal manometry. She typically follows with [facility]. She can continue. Subjective Patient tells me she feels about the same. still ongoing chest pain and fatigue. she was started on doxepin for esophageal spasm/chest pain. AM cortisol found to be low at 2.5 and she tells me that they are going to get an endocrine opinion on this. UGI/Barium swallow 11/05/24 Mild gastroesophageal reflux. Otherwise unremarkable exam. Physical Exam Constitutional: WD/WN, vitals as above Respiratory: normal respiratory effort, lungs clear to auscultation Cardiovascular: Rate/Rhythm: regular rate and regular rhythm Gastrointestinal (Abdomen): normal bowel sounds, soft, nontender, no hepatosplenomegaly Psychiatric: Orientation: alert and oriented x 3 Results & Data Results & Data Vital Signs (Past 12 Hours) Vital Signs Temp Pulse Pulse Resp BP Pulse Ox O2 Del Method 11/06/24 08:17 97.7 F 59 L 18 103/70 97 Room Air 11/06/24 08:00 Room Air 11/06/24 07:00 67 11/06/24 03:56 97.9 F 68 20 104/66 95 Room Air 11/05/24 23:59 98.1 F 64 18 111/73 96 Room Air Coding Level of Care Code 96360 SUB INP/OBS CARE 07/11MIN Diagnoses Chest pain R07.9
[2024-11-06 11:19] VITALS: BP 113/77; TEMP 98.4; O2SAT 96
[2024-11-06] MEDS: HYDROCORTISONE SOD 5 MG in SYRINGE 0 ML IV STA (11:46)
--- NOTE | 2024-11-06 11:51 | Discharge Summary ---
Discharge Summary Date of Service November 06, 2024 Principal Dx & Hospital Course #1 = Principal Diagnosis (1) Multiple sclerosis: 39-year-old female with past medical history significant for insulin resistance, polycystic ovarian syndrome, MTHFR mutation, mild intermittent asthma, seasonal allergic rhinitis, hypertension, prolonged QT, morbid obesity, GERD, fibromyalgia, degenerative disc disease, plaque psoriasis, multiple sclerosis, atypical chest pain, atypical migraine, iron deficiency anemia, anxiety, depression, history of bulimia, general anxiety disorder, chronic fatigue, comes because of chest pain, epigastric abdominal pain, elevated blood pressure and weakness in the legs. #Relapse Remitting Multiple Sclerosis #Chronic Fatigue Syndrome #Autonomic Dysfunction #Adrenal Insufficiency -meets 2023 [facility] criteria for MS, LP and imaging with T2 lesion -did not have significant improvement with steroids or plasmapheresis in regards to fatigue/weakness suggesting alternative diagnosis -has hx of dysautonomia, with swings in blood pressure/heart rate -patient meets clinical diagnostic criteria for chronic fatigue syndrome (per [facility], 6 months of reduced activity, newer onset severe fatigue not relieved with rest, post exertional malaise, and unrefreshing sleep, present for over 50% of days), there is overlap with MS symptoms as well but given no improvement in symptoms with treatment for MS diagnosis fits -concern for peripheral autonomic component with central component as well, such as autonomic dysreflexia, POTS -less likely conditions would include scleroderma cause dysreflexia (does have concern for esophageal spasms but no other scleroderma syndromes), less likely multiple system atrophy -discussed with neurology and cardiology as well -CTA head and neck unremarkable Plan: -suggest PM&R consultation and functional medication consults outpatient -outpatient PT/OT for graded exercise program for chronic fatigue syndrome -start B12, vitamin D supplementation -can consider glutathione supplementation for chronic fatigue syndrome, discuss with MS doctor outpatient -suggest tilt table testing as well as clinical testing for fibromyalgia outpatient -continue atenolol -stay hydrated -started on hydrocortisone for adrenal insufficiency, discussed with neurology -case discussed extensively with neurology, cardiology, GI, hopsital medicine management Dr. Glass, case management, patient is medically stable for discharge home, is walking laps around hospital hale -follow up outpatient for above concerns #Esophageal Spasm #GERD -extensive testing by GI and speech -possible esophageal spasm -tolerated doxepin well Plan: -continue doxepin for esophageal spasm and chest pain -per GI levsin prn outpatient #R/o Severe Sleep Apnea #Mild Sleep Apnea -patient has known mild sleep apnea, with significant apneas noted on testing in -did not tolerate CPAP at that time -has had weight gain since then Plan: -f/u with sleep medicine -would benefit from weight management referral for weight loss to assist with sleep apnea -will likely benefit from CPAP #Psoriatic Arthritis #Ankylosing Spondylitis -likely contributor to fatigue as well Plan: -f/u with rheumatology outpatient -will benefit from treatment of these conditions with concurrent treatment from MS (Heena) Notes For Next Care Provider 39-year-old female with past medical history significant for insulin resistance, polycystic ovarian syndrome, MTHFR mutation, mild intermittent asthma, seasonal allergic rhinitis, hypertension, prolonged QT, morbid obesity, GERD, fibromyalgia, degenerative disc disease, plaque psoriasis, multiple sclerosis, atypical chest pain, atypical migraine, iron deficiency anemia, anxiety, depression, history of bulimia, general anxiety disorder, chronic fatigue, comes because of chest pain, epigastric abdominal pain, elevated blood pressure and weakness in the legs. Patient has extensive history of follow up with numerous providers in region and has had extensive testing done for numerous medical conditions. On medicine, neurology consulted, do not recommend further neurologic workup as deficits do not correlate with MS lesion, recommend outpatient follow up with MS provider, exercise. Cardiology consulted, recommend outpatient follow up with no acute cardiac abnormality, restarted atenolol. GI consulted, recommend workup outpatient for esophageal spasm, started on levsin. Speech consulted as well. Patient requested new hospital medicine provider. This provider saw patient, did extensive workup, see prior documentation. Low AM cortisol diagnostic of adrenal insufficiency, started on hydrocortisone. Discussed cased again with neurology who are comfortable with starting hydrocortisone with MS medication. Repeated CT head and neck imaging, no acute findings as expected. Chest xray ordered as requested by patient, unremarkable. This provider started doxepin, tolerated well. Meets criteria for chronic fatigue syndrome, recommend graded exercise routine outpatient. Metabolic workup revealed low B12 and vitamin D, started supplementation. Patient walking laps around hale, hemodynamically stable, has had extensive imaging workup. Patient is medically stable for discharge home with outpatient follow up with providers. This admission, has had unremarkable: xray chest, CT head, CTA head/neck, barium swallow (mild reflux), axilla US (1 LN identified, follow up outpatient). On 10/23/2024 had unremarkable: MR head with T2 lesion (consistent with MS, now treated, and old demyelinating lesions), MR C-spine/MR T-spine with mild spinal canal stenosis and osteophytes without stenosis in low thoracic region. Has had extensive metabolic workup including: AM cortisol (being treated), TSH (only marginally elevated, follow up in 6 months outpatient), low vitamin D and low vitamin B12 (being replenished), negative troponins, LFTS unremarkable, CBC/creatinine/BMP unremarkable, has had prior lumbar punctures as well. Patient has requested to providers/nursing staff numerous days to stay in hosp ital despite being medically stable for discharge home with outpatient follow ups. Of note, discussed case with Dr. [facility], who is in agreement with plan for discharge. Patient has had extensive medical workup with numerous hospital medicine providers, neurology, cardiology, GI all consulted. No acute issues identified requiring further hospitalization. Patient walking around unit, tolerating diet, hemodynamically stable. Patient can continue with outpatient providers for further workup. To do: [ ] has appts set up for sleep medicine, family medicine, neurology, rheumatology, ENT, endocrinology, cardiology already Medication Changes From Visit -see below Admission HPI Per Admitting Provider 39-year-old female with past medical history significant for insulin resistance, polycystic ovarian syndrome, MTHFR mutation, mild intermittent asthma, seasonal allergic rhinitis, hypertension, prolonged QT, morbid obesity, GERD, fibromyalgia, degenerative disc disease, plaque psoriasis, multiple sclerosis, atypical chest pain, atypical migraine, iron deficiency anemia, anxiety, depression, history of bulimia, general anxiety disorder, chronic fatigue, comes because of chest pain, epigastric abdominal pain, elevated blood pressure and weakness in the legs. Patient was recently diagnosed with MS and was started on Kesimpta. Patient was recently admitted at [facility] from to 10/29/2024. Patient admitted for blurred vision and lightheadedness and numbness in fingertips and brain fog. MRI scans were done which are showing active enhancing lesion at T1 spine indicative of active demyelination in addition to demyelinating supratentorial and infratentorial lesions without enhancement. The symptoms were not explained the findings but patient was treated as flare with plasmapheresis. She also had cardiac workup with normal EKG and was suspected atypical chest pain with recommendation to follow with cardiology as outpatient. GI was also consulted to further evaluate substernal pain and recommended IV PPI and EGD was done which showed gastritis and recommended omeprazole twice daily for 14 days then change to once daily after that. ENT also evaluated for right eustachian tube extrusion recommend outpatient follow-up. Psychiatry was consulted for anxiety and recommended switching from Lexapro to Cymbalta. Patient saying Cymbalta is causing a lot of problems she thinks is causing her abdominal pain ,chest pain and elevated blood pressure and feeling of spacing out. Since discharge she is also having 7/10 retrosternal chest pain and also epigastric abdominal pain. Pain sometimes radiates to the left shoulder. Sometimes she gets short of breath. Ongoing weakness in the legs and seems to getting worse. Tingly feeling all over. She called her MS specialist today and was advised to come to the hospital. Currently having headache. Sometimes she gets blurred vision. Her ears are somewhat bothering because of the tubes. No sore throat. No cough. No fevers. Appetite is down. No nausea. Normal bowel and bladder movements. Resting comfortably and Hemodynamics are okay. Past medical history. As mentioned above Past surgical history. Cardiac cath. Dental surgery. EGD. Laparoscopic cholecystectomy. Social history. Quit smoking in 2007. Smoked 0.1 pack a day for 1 year. No alcohol use currently. No drug use. Family history. Father has hypertension. Psoriasis. Mother has diabetes. Hypertension. Psoriasis. Paternal grandmother had sick sinus syndrome. Diabetes. Pacemaker. Maternal grandfather had CAD. Diabetes. Discharge Exam Gen: A&O 3 NAD HEENT: NCAT, EOMI, not icteric. External ears normal. No rhinorrhea. Moist mucous membranes. Neck: Supple, full range of motion, no observable masses, No meningeal sign. Lungs: No Respiratory distress. CV: no edema. Abdomen: Soft, nondistended, No rebound tenderness. MSK: No joint swelling, no redness. walking around hospital unit Skin: No rashes, petechiae, lesions. Neuro: Normal Gait, Grossly intact. Psych: very anxious, requesting to stay in hospital to nursing staff Updated Medication List Medication Instructions Recorded Confirmed Type melatonin 5 mg tablet 5 mg PO HS 08/25/24 11/02/24 History fluticasone propionate 50 2 spray intranasal DAILY PRN 09/09/24 11/02/24 History mcg/actuation nasal allergies spray,suspension magnesium oxide 250 mg PO HS 09/09/24 11/02/24 History loratadine 10 mg tablet (Claritin) 10 mg PO HS 09/21/24 11/02/24 History cholecalciferol (vitamin D3) 50 50 mcg PO QAM 10/01/24 11/02/24 History mcg (2,000 unit) capsule ofatumumab 20 mg/0.4 mL 20 mg (0.4 mL) subcut .COMPLEX #3 10/08/24 11/02/24 Rx subcutaneous pen injector mL (Kesimpta Pen) duloxetine 30 mg capsule,delayed 30 mg PO DAILY 11/02/24 11/02/24 History release omeprazole 40 mg capsule,delayed 40 mg PO BID 11/02/24 11/02/24 History release atenolol 25 mg tablet 12.5 mg (1/2 x 25 mg) PO BID #30 11/06/24 Rx tabs cyanocobalamin (vitamin B-12) 500 1,000 mcg (2 x 500 mcg) PO QAM #60 11/06/24 Rx mcg tablet tabs doxepin 10 mg capsule 10 mg PO HS #30 caps 11/06/24 Rx hydrocortisone 10 mg tablet 10 mg PO BID #60 tabs 11/06/24 Rx (Cortef) hyoscyamine sulfate 0.125 mg 0.125 mg sublingual Q12H PRN 11/06/24 Rx tablet (Levsin) dyspepsia #30 tabs ondansetron 4 mg disintegrating 4 mg PO DAILY PRN nausea and 11/06/24 Rx tablet vomiting #14 tabs sertraline 50 mg tablet 50 mg PO QAM #30 tabs 11/06/24 Rx Hospital Stay Data Consultations 11/02/24 18:05 ED Decision to Admit Stat 11/03/24 08:00 Consult Cardiology Routine Consult Neurology Routine 11/03/24 10:33 Consult Behavioral Health Liaison Routine 11/04/24 09:19 Consult Gastroenterology Routine Diagnostic Imagining Performed 11/03/24 12:54 US axilla RT Routine 11/05/24 15:56 CTA head w con [CT angio head w con] Urgent CTA neck with con [CT angio neck with con] Urgent 11/05/24 16:48 CT head/brain wo con Urgent Pending Results Patient Have Any Pending Studies at Discharge: Yes Discharge Instructions Given to Patient (Per Discharging Provider) 1. Please follow up with: GI, cardiology, neurology, rheumatology, PCP. 2. Establish with an subacute nurse. 3. Establish with a PM&R doctor. 4. Consider tilt table testing, fibromyalgia testing, and nerve biopsy outpatient. 5. Take hydrocortisone twice a day as prescribed. Cannot stop abruptly taking them, must be titrated off. Total Time Total Time Spent Total Time Spent (In Minutes): I spent a total of 70 minutes in direct patient care, including [id number] time with the patient and/or family, reviewing medical records, ordering and reviewing diagnostic tests, and coordinating care with other healthcare providers. This time includes: history taking, physical examination, medical decision making, counseling, ECG interpretation, imaging interpretation, lab interpretation, orders, and education, excluding time spent in the performance of separately billed services.
[2024-11-06 13:05] VITALS: PULSE 92
[2024-11-06] MEDS ORDERED: HYDROCORTISONE 10 MG TAB PO SCH (21:00)
== END 2024-11-06 14:13 | disposition home or self-care (01) | DRG 59 ==
LOC: ED 16:44 → SUATTDRO 19:22 → 2W 19:22